=== PATIENT | female | born 1940 | race Caucasian/White ===

== ENCOUNTER 2018-06-16 23:02 | Inpatient (IN) | payer MEDICARE, OTHER ==
--- NOTE | 2018-06-16 23:52 | ED ---
Altered Mental Status HPI - General Chief Complaint: Altered Mental Status Stated Complaint: Altered Mental Status Time Seen by Provider: 06/16/18 23:35 Source: EMS, Caregiver Mode of arrival: EMS Limitations: altered mental status - History of Present Illness Initial Comments: This patient is a 78-year-old woman who lives in a senior apartment, presenting to be evaluated for worsening of altered mental status. History is from a caregiver, who states that she has been becoming progressively weaker and more confused for over 3 days now. She had been taking less in the way of oral intake as well. Today she stopped taking fluids at all, she has not been talking at all, and they called EMS to have her seen here. Patient had been seen by a visiting physician on Monday. She had been taking Bactrim for urinary tract infection. MD Complaint: altered mental status, decreased responsiveness -: days(s) Severity: severe Consistency of Symptoms: getting worse - Related Data Home Medications Medication Instructions Recorded Confirmed Albuterol Nebulized [Ventolin 1 applic INHALATION RT-QID 09/09/14 06/16/18 Nebulized] Aspirin 81 mg PO DAILY@89909/09/14 06/16/18 Benztropine Mesylate [Cogentin] 0.5 mg PO BID@09,199909/09/14 06/16/18 Divalproex [Depakote] 250 mg PO DAILY@89909/09/14 06/16/18 Divalproex [Depakote] 500 mg PO DAILY@89909/09/14 06/16/18 Meloxicam [Mobic] 7.5 mg PO DAILY@89909/09/14 06/16/18 risperiDONE [RisperDAL] 1 mg PO BID@09,199909/09/14 06/16/18 Atorvastatin [Lipitor] 5 mg PO DAILY@159906/16/18 06/16/18 Budesonide [Pulmicort] 0.25 mg INHALATION RT-BID 06/16/18 06/16/18 Cranberry Fruit Extract [Cranberry] 200 mg PO DAILY@159906/16/18 06/16/18 Ferrous Sulfate [Iron] 325 mg PO BID@0900,199906/16/18 06/16/18 Furosemide [Lasix] 20 mg PO DAILY@89906/16/18 06/16/18 Levothyroxine Sodium [Synthroid] 125 mcg PO DAILY@0800 06/16/18 06/16/18 Omeprazole 20 mg PO DAILY@0906/16/18 06/16/18 Sodium Chloride Tab 1 gm PO BID@09,199906/16/18 06/16/18 Sulfamethoxazole/Trimethoprim 1 tab PO BID@0900,199906/16/18 06/16/18 [Bactrim DS 800-160 mg] guaiFENesin [Mucinex] 600 mg PO BID@09,199906/16/18 06/16/18 Allergies Allergy/AdvReac Type Severity Reaction Status Date / Time No Known Allergies Allergy Verified 06/16/18 23:33 Review of Systems ROS Statement: Those systems with pertinent positive or pertinent negative responses have been documented in the HPI. ROS Other: All systems not noted in ROS Statement are negative. Limitations: ROS unobtainable due to patients medical condition (Patient currently nonverbal) Past Medical History Past Medical History: Heart Failure, Hyperlipidemia, Hypertension, Mitral Valve Prolapse (MVP), Seizure Disorder, Thyroid Disorder Additional Past Medical History / Comment(s): PARKINSON'S, MENTAL RETARDATION, UNKNOWN WHEN LAST SEIZURE, USES A WHEELCHAIR, RT ARM IN BANDAGE WITH SLING. CAREGIVER STATES ABLE TO READ AND WRITE, DIFFICULTY WITH COMPREHENSION. History of Any Multi-Drug Resistant Organisms: None Reported Past Surgical History: Joint Replacement Additional Past Surgical History / Comment(s): RIGHT HIP, ORIF OF RIGHT ELBOW (). Past Anesthesia/Blood Transfusion Reactions: No Reported Reaction Past Psychological History: Depression, Schizophrenia Smoking Status: Former smoker Past Alcohol Use History: None Reported Past Drug Use History: None Reported General Exam Limitations: altered mental status General appearance: obtunded Head exam: Present: atraumatic, normocephalic Eye exam: Present: PERRL. Absent: scleral icterus, conjunctival injection ENT exam: Present: mucous membranes dry Neck exam: Present: normal inspection Respiratory exam: Present: rales, rhonchi. Absent: wheezes, stridor Cardiovascular Exam: Present: regular rate, normal rhythm, systolic murmur ( Grade 2/6 systolic ejection murmur). Absent: diastolic murmur, rubs, gallop GI/Abdominal exam: Present: soft. Absent: distended, tenderness, guarding, rebound, mass Extremities exam: Present: normal inspection, normal capillary refill. Absent: pedal edema, calf tenderness Neurological exam: Present: altered Skin exam: Present: intact, pallor, mottled. Absent: rash Course Vital Signs 06/16/18 06/17/18 06/17/18 23:04 00:03 00:27 Temperature Pulse Rate 80 74 64 Respiratory 18 16 16 Rate Blood Pressure 111/70 107/62 54/24 O2 Sat by Pulse 92 L 93 L 92 L Oximetry 06/17/18 06/17/18 06/17/18 00:33 00:40 00:47 Temperature Pulse Rate 71 76 71 Respiratory 16 16 16 Rate Blood Pressure 44/33 91/31 85/43 O2 Sat by Pulse 76 L 93 L 93 L Oximetry 06/17/18 06/17/18 06/17/18 01:05 01:23 02:00 Temperature Pulse Rate 77 74 83 Respiratory 16 15 18 Rate Blood Pressure 119/71 94/58 109/54 O2 Sat by Pulse 100 100 100 Oximetry 06/17/18 06/17/18 06/17/18 02:43 03:46 03:50 Temperature 92.1 F L Pulse Rate 83 73 Respiratory 19 19 Rate Blood Pressure 90/75 66/35 O2 Sat by Pulse 94 L 95 Oximetry 06/17/18 06/17/18 06/17/18 03:55 04:00 04:06 Temperature Pulse Rate 73 Respiratory 19 Rate Blood Pressure 75/36 77/42 92/49 O2 Sat by Pulse 98 Oximetry 06/17/18 06/17/18 06/17/18 04:14 04:43 05:15 Temperature 93.0 F L 93.3 F L 94.3 F L Pulse Rate 71 70 75 Respiratory 19 20 22 Rate Blood Pressure 82/42 76/41 82/42 O2 Sat by Pulse 99 97 97 Oximetry 06/17/18 06/17/18 06/17/18 05:25 05:40 06:05 Temperature 94.7 F L 95.5 F L 96.3 F L Pulse Rate 79 84 Respiratory 22 20 Rate Blood Pressure 91/50 90/54 104/50 O2 Sat by Pulse 98 96 Oximetry Procedures - Central Line Placement Right Femoral Consent Obtained: emergent situation Time Out Performed: Yes Patient Placed on Monitor/Pulse Ox: Yes Prep: mask, gown, gloves Central Line Prep: Chlorhexidine scrub Local Anesthesia Used: Lidocaine 1% Central Line Lumen Inserted: triple Central Line Position: good blood return, all ports aspirated, flushed, capped, sutured in place with nylon Dressing Applied: Tegaderm Patient Tolerated Procedure: well, no complications Complications: none - Sepsis Sepsis Focused Exam #1 Sepsis Focused Exam Complete: Yes Vital Signs & RN Notes Reviewed: Yes Capillary Refill: < 2 Seconds: Fingers Peripheral Pulses: Weak: Radial (R) Skin Color: Flushed Respiratory Exam: rales, rhonchi Cardiovascular Exam: regular rate Medical Decision Making - Medical Decision Making Patient 78-year-old woman brought to be evaluated for altered mental status. Caregiver reports that she had been having some occasional cough and gurgling breath sounds and symptoms of worsening since Monday. Initial evaluation, patient clinically looking like septic with pneumonia as the source. She became hypotensive and given fluid bolus, receiving over 2500 and also fluid in the emergency department. Patient also received central line to right femoral, to start pressor support. Patient's mental status has improved following fluid bolus and starting antibiotics. Case discussed with hospitalist group for admission. 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 - Lab Data Result diagrams: 06/16/18 23:50 06/16/18 23:50 Lab Results 06/16/18 06/16/18 06/16/18 Range/Units 23:50 23:50 23:50 WBC 3.7 L (3.8-10.6) k/uL RBC 3.18 L (3.80-5.40) m/uL Hgb 8.7 L (11.4-16.0) gm/dL Hct 27.0 L (34.0-46.0) % MCV 84.9 (80.0-100.0) fL MCH 27.3 (25.0-35.0) pg MCHC 32.1 (31.0-37.0) g/dL RDW 22.1 H (11.5-15.5) % Plt Count 90 L (150-450) k/uL Neutrophils % (Manual) 29 % Band Neutrophils % 52 % Lymphocytes % (Manual) 11 % Monocytes % (Manual) 4 % Metamyelocytes % 4 % Myelocytes % 1 % Neutrophils # (Manual) 2.90 (1.3-7.7) k/uL Lymphocytes # (Manual) 0.41 L (1.0-4.8) k/uL Monocytes # (Manual) 0.15 (0-1.0) k/uL Metamyelocytes # (Man) 0.15 H (0) k/uL Myelocytes # (Manual) 0.04 H (0) k/uL Nucleated RBCs 4 H (0-0) /100 WBC Toxic Granulation Present Large Platelets Present Polychromasia Present Poikilocytosis (manual Present Anisocytosis Moderate Anisocytosis (manual) Present Microcytosis Slight Target Cells Present PT (9.0-12.0) sec INR (<1.2) APTT (22.0-30.0) sec Sodium (137-145) mmol/L Potassium (3.5-5.1) mmol/L Chloride (98-107) mmol/L Carbon Dioxide (22-30) mmol/L Anion Gap mmol/L BUN (7-17) mg/dL Creatinine (0.52-1.04) mg/dL Est GFR (CKD-EPI)AfAm (>60 ml/min/1.73 sqM) Est GFR (CKD-EPI)NonAf (>60 ml/min/1.73 sqM) Glucose (74-99) mg/dL POC Glucose (mg/dL) (75-99) mg/dL POC Glu Cushion Mat Maker ID Lactic Ac Sepsis Rflx Plasma Lactic Acid Jason 2.4 H* (0.7-2.0) mmol/L Calcium (8.4-10.2) mg/dL Total Bilirubin (0.2-1.3) mg/dL AST (14-36) U/L ALT (9-52) U/L Alkaline Phosphatase (38-126) U/L Ammonia <9 (<30) umol/L Total Creatine Kinase 44 (30-135) U/L CK-MB (CK-2) 6.2 H (0.0-2.4) ng/mL CK-MB (CK-2) Rel Index 14.1 Troponin I 0.032 (0.000-0.034) ng/mL Total Protein (6.3-8.2) g/dL Albumin (3.5-5.0) g/dL Urine Color Urine Appearance (Clear) Urine pH (5.0-8.0) Ur Specific [place] (1.001-1.035) Urine Protein (Negative) Urine Glucose (UA) (Negative) Urine Ketones (Negative) Urine Blood (Negative) Urine Nitrite (Negative) Urine Bilirubin (Negative) Urine Urobilinogen (<2.0) mg/dL Ur Leukocyte Esterase (Negative) Urine RBC (0-5) /hpf Urine WBC (0-5) /hpf Ur Squamous Epith Cells (0-4) /hpf Amorphous Sediment (None) /hpf Urine Bacteria (None) /hpf Hyaline Casts (0-2) /lpf Urine Mucus (None) /hpf 06/16/18 06/16/18 06/17/18 Range/Units 23:50 23:50 00:08 WBC (3.8-10.6) k/uL RBC (3.80-5.40) m/uL Hgb (11.4-16.0) gm/dL Hct (34.0-46.0) % MCV (80.0-100.0) fL MCH (25.0-35.0) pg MCHC (31.0-37.0) g/dL RDW (11.5-15.5) % Plt Count (150-450) k/uL Neutrophils % (Manual) % Band Neutrophils % % Lymphocytes % (Manual) % Monocytes % (Manual) % Metamyelocytes % % Myelocytes % % Neutrophils # (Manual) (1.3-7.7) k/uL Lymphocytes # (Manual) (1.0-4.8) k/uL Monocytes # (Manual) (0-1.0) k/uL Metamyelocytes # (Man) (0) k/uL Myelocytes # (Manual) (0) k/uL Nucleated RBCs (0-0) /100 WBC Toxic Granulation Large Platelets Polychromasia Poikilocytosis (manual Anisocytosis Anisocytosis (manual) Microcytosis Target Cells PT 10.1 (9.0-12.0) sec INR 0.9 (<1.2) APTT 29.2 (22.0-30.0) sec Sodium 129 L (137-145) mmol/L Potassium 4.8 (3.5-5.1) mmol/L Chloride 94 L (98-107) mmol/L Carbon Dioxide 22 (22-30) mmol/L Anion Gap 13 mmol/L BUN 31 H (7-17) mg/dL Creatinine 1.30 H (0.52-1.04) mg/dL Est GFR (CKD-EPI)AfAm 46 (>60 ml/min/1.73 sqM) Est GFR (CKD-EPI)NonAf 40 (>60 ml/min/1.73 sqM) Glucose 81 (74-99) mg/dL POC Glucose (mg/dL) 79 (75-99) mg/dL POC Glu Cushion Mat Maker ID Pati Chatman Lactic Ac Sepsis Rflx Plasma Lactic Acid Jason (0.7-2.0) mmol/L Calcium 9.1 (8.4-10.2) mg/dL Total Bilirubin 0.3 (0.2-1.3) mg/dL AST 32 (14-36) U/L ALT 34 (9-52) U/L Alkaline Phosphatase 91 (38-126) U/L Ammonia (<30) umol/L Total Creatine Kinase (30-135) U/L CK-MB (CK-2) (0.0-2.4) ng/mL CK-MB (CK-2) Rel Index Troponin I (0.000-0.034) ng/mL Total Protein 5.6 L (6.3-8.2) g/dL Albumin 2.9 L (3.5-5.0) g/dL Urine Color Urine Appearance (Clear) Urine pH (5.0-8.0) Ur Specific [place] (1.001-1.035) Urine Protein (Negative) Urine Glucose (UA) (Negative) Urine Ketones (Negative) Urine Blood (Negative) Urine Nitrite (Negative) Urine Bilirubin (Negative) Urine Urobilinogen (<2.0) mg/dL Ur Leukocyte Esterase (Negative) Urine RBC (0-5) /hpf Urine WBC (0-5) /hpf Ur Squamous Epith Cells (0-4) /hpf Amorphous Sediment (None) /hpf Urine Bacteria (None) /hpf Hyaline Casts (0-2) /lpf Urine Mucus (None) /hpf 06/17/18 06/17/18 06/17/18 Range/Units 00:24 01:14 03:45 WBC (3.8-10.6) k/uL RBC (3.80-5.40) m/uL Hgb (11.4-16.0) gm/dL Hct (34.0-46.0) % MCV (80.0-100.0) fL MCH (25.0-35.0) pg MCHC (31.0-37.0) g/dL RDW (11.5-15.5) % Plt Count (150-450) k/uL Neutrophils % (Manual) % Band Neutrophils % % Lymphocytes % (Manual) % Monocytes % (Manual) % Metamyelocytes % % Myelocytes % % Neutrophils # (Manual) (1.3-7.7) k/uL Lymphocytes # (Manual) (1.0-4.8) k/uL Monocytes # (Manual) (0-1.0) k/uL Metamyelocytes # (Man) (0) k/uL Myelocytes # (Manual) (0) k/uL Nucleated RBCs (0-0) /100 WBC Toxic Granulation Large Platelets Polychromasia Poikilocytosis (manual Anisocytosis Anisocytosis (manual) Microcytosis Target Cells PT (9.0-12.0) sec INR (<1.2) APTT (22.0-30.0) sec Sodium (137-145) mmol/L Potassium (3.5-5.1) mmol/L Chloride (98-107) mmol/L Carbon Dioxide (22-30) mmol/L Anion Gap mmol/L BUN (7-17) mg/dL Creatinine (0.52-1.04) mg/dL Est GFR (CKD-EPI)AfAm (>60 ml/min/1.73 sqM) Est GFR (CKD-EPI)NonAf (>60 ml/min/1.73 sqM) Glucose (74-99) mg/dL POC Glucose (mg/dL) (75-99) mg/dL POC Glu Cushion Mat Maker ID Lactic Ac Sepsis Rflx Y Plasma Lactic Acid Jason 1.4 (0.7-2.0) mmol/L Calcium (8.4-10.2) mg/dL Total Bilirubin (0.2-1.3) mg/dL AST (14-36) U/L ALT (9-52) U/L Alkaline Phosphatase (38-126) U/L Ammonia (<30) umol/L Total Creatine Kinase (30-135) U/L CK-MB (CK-2) (0.0-2.4) ng/mL CK-MB (CK-2) Rel Index Troponin I (0.000-0.034) ng/mL Total Protein (6.3-8.2) g/dL Albumin (3.5-5.0) g/dL Urine Color Yellow Urine Appearance Cloudy H (Clear) Urine pH 6.5 (5.0-8.0) Ur Specific [place] 1.011 (1.001-1.035) Urine Protein Negative (Negative) Urine Glucose (UA) Negative (Negative) Urine Ketones Negative (Negative) Urine Blood Negative (Negative) Urine Nitrite Negative (Negative) Urine Bilirubin Negative (Negative) Urine Urobilinogen <2.0 (<2.0) mg/dL Ur Leukocyte Esterase Large H (Negative) Urine RBC 1 (0-5) /hpf Urine WBC 4 (0-5) /hpf Ur Squamous Epith Cells <1 (0-4) /hpf Amorphous Sediment Rare H (None) /hpf Urine Bacteria Rare H (None) /hpf Hyaline Casts 8 H (0-2) /lpf Urine Mucus Rare H (None) /hpf - EKG Data -: EKG Interpreted by Me EKG shows normal: sinus rhythm, axis (Normal), intervals (Normal), QRS complexes (Normal), ST-T waves (Lateral T inversions) Rate: normal (Rate 69 bpm) Critical Care Time Critical Care Time: Yes (50 minutes) Disposition Clinical Impression: Pneumonia, Severe sepsis Disposition: ADMITTED IP TO THIS [facility] Condition: Critical
[2018-06-17] MEDS ORDERED: SODIUM CHLORIDE 0.9% 500 ML 500 ML IV STA (00:11)
[2018-06-17 00:13] LABS: Albumin 2.9 g/dL (3.5-5.0); Calcium 9.1 mg/dL (8.4-10.2); Potassium 4.8 mmol/L (3.5-5.1); Total Bilirubin 0.3 mg/dL (0.2-1.3); Total Protein 5.6 g/dL (6.3-8.2)
[2018-06-17 00:14] LABS: Anisocytosis Moderate; HGB 8.7 gm/dL (11.4-16.0); MCH 27.3 pg (25.0-35.0); MCHC 32.1 g/dL (31.0-37.0); MCV 84.9 fL (80.0-100.0); Mean Platelet Volume 8.8; Microcytosis Slight; RBC 3.18 m/uL (3.80-5.40); RDW 22.1 % (11.5-15.5)
[2018-06-17 00:17] LABS: INR 0.9 (<1.2)
[2018-06-17 00:18] LABS: Partial Thromboplastin Time 29.2 sec (22.0-30.0); Prothrombin Time 10.1 sec (9.0-12.0)
[2018-06-17 00:20] LABS: Ammonia <9 umol/L (<30)
[2018-06-17 00:21] LABS: Glucose,Whole Blood 79 mg/dL (75-99)
[2018-06-17 00:24] LABS: Lactic Acid, Venous 2.4 mmol/L (0.7-2.0)
[2018-06-17 00:41] LABS: Creatine Kinase MB 6.2 ng/mL (0.0-2.4); Troponin I 0.032 ng/mL (0.000-0.034)
[2018-06-17 01:04] LABS: Platelet Count 90 k/uL (150-450)
[2018-06-17 01:20] LABS: Band Neutrophils % 52 %; Lymphocytes # (M) 0.41 k/uL (1.0-4.8); Metamyelocytes # (M) 0.15 k/uL (0); Metamyelocytes % 4 %; Monocytes # (M) 0.15 k/uL (0-1.0); Myelocytes # (M) 0.04 k/uL (0); Myelocytes % 1 %; Neutrophils % (M) 29 %; Nucleated Red Blood Cells 4 /100 WBC (0-0); Total Cells Counted 200; WBC 3.7 k/uL (3.8-10.6)
[2018-06-17 01:24] LABS: Large Platelets Present; Target Cells Present
[2018-06-17 01:25] LABS: Toxic Granulation Present
[2018-06-17 01:28] LABS: Poikilocytosis (M) Present
[2018-06-17 01:29] LABS: Anisocytosis (M) Present; Polychromasia Present
[2018-06-17 01:33] LABS: Amorphous Sediment,Urine Rare /hpf; Appearance,Urine Cloudy (Clear); Bacteria,Urine Rare /hpf; Bilirubin,Urine Negative (Negative); Blood,Urine Negative (Negative); Color,Urine Yellow; Glucose,Urine (UA) Negative (Negative); Hyaline Casts,Urine 8 /lpf (0-2); Ketones,Urine Negative (Negative); Leukocyte Esterase,Urine Large (Negative); Mucus,Urine Rare /hpf; Nitrite,Urine Negative (Negative); PH, Urine 6.5 (5.0-8.0); Protein,Urine Negative (Negative); RBC,Urine 1 /hpf (0-5); Specific Gravity,Urine 1.011 (1.001-1.035); Squamous Epithelial Cell,Urine <1 /hpf (0-4); Urobilinogen,Urine <2.0 mg/dL (<2.0); WBC,Urine 4 /hpf (0-5)
--- NOTE | 2018-06-17 02:04 | XR ---
EXAMINATION TYPE: XR chest 1V portable DATE OF EXAM: 06/17/2018 COMPARISON: 05/11/2012 HISTORY: Altered mental status TECHNIQUE: Single frontal view of the chest is obtained. FINDINGS: There is pulmonary edema. There are chest leads. There is slight blunting of the costophre jarad angles. IMPRESSION: Small pleural effusions with pulmonary edema probably relates to congestive heart failur e or RDS. This is a significant change compared to last exam.
[2018-06-17] MEDS ORDERED: PIPERACILLIN-TAZOBACTAM 3.375 GM in SODIUM CHLORIDE 0.9% 100 ML IVPB STA (02:13)
[2018-06-17] MEDS ORDERED: LEVOFLOXACIN 750MG-D5W PMX 750 MG in DEXTROSE/WATER 1 150ML.BAG IVPB STA (02:14)
[2018-06-17] MEDS ORDERED: SODIUM CHLORIDE 0.9% 2,000 ML IV ONE (02:46)
--- NOTE | 2018-06-17 02:53 | CT ---
EXAMINATION TYPE: CT brain wo con DATE OF EXAM: 06/17/2018 COMPARISON: 05/23/2011 HISTORY: prev. on synapse. 2 scans were done due to motion; both scans were put through for different points of motion CT DLP: 2002.6 mGycm Automated exposure control for dose reduction was used. FINDINGS: There is cerebral cortical atrophy. There is enlargement of the ventricles. There is no mass effect n or midline shift. There is no sign of intracranial hemorrhage. There is bilateral thalamic calcificat ion. Calvarium is intact. IMPRESSION: MILD ATROPHY. HYDROCEPHALUS. NO CHANGE COMPARED TO OLD EXAM.
[2018-06-17] MEDS: NOREPINEPHRINE 16 MG in SODIUM CHLORIDE 0.9% 250 ML IV SCH (04:03)
[2018-06-17] MEDS ORDERED: PNEUMONIA PROTOCOL UTILIZED 1 EACH MISC PO PRN (04:47)
[2018-06-17] MEDS ORDERED: HYDROCORTISONE SUCCINATE 100 MG/2 ML VIAL IV STA (05:21)
[2018-06-17 05:37] LABS: ABG Base Excess -2.1 mmol/L; ABG HCO3 23 mmol/L (21-25); ABG Oxygen Saturation 98.8 % (94-97); ABG PCO2 40 mmHg (35-45); ABG PH 7.37 (7.35-7.45); ABG PO2 115 mmHg (83-108); ABG TCO2 24 mmol/L (19-24)
[2018-06-17 06:01] LABS: Glucose,Whole Blood 82 mg/dL (75-99)
[2018-06-17 06:19] LABS: Glucose,Whole Blood 52 mg/dL (75-99)
[2018-06-17 06:38] LABS: Glucose,Whole Blood 176 mg/dL (75-99)
--- NOTE | 2018-06-17 07:14 | XR ---
EXAMINATION TYPE: XR chest 1V DATE OF EXAM: 06/17/2018 HISTORY: Pleural effusions/ICU management. REFERENCE: Previous study dated 06/17/2018. FINDINGS: The heart is enlarged. There is vascular congestion and pulmonary edema. There are small, b ilateral effusions. IMPRESSION: CONTINUING CHANGES OF CONGESTIVE HEART FAILURE.
[2018-06-17] MEDS: PIPERACILLIN-TAZOBACTAM 3.375 GM in SODIUM CHLORIDE 0.9% 100 ML IVPB SCH ×3 (07:15→22:01)
[2018-06-17] MEDS: BUDESONIDE 0.25 MG/2 ML NEBU INHALATION SCH ×2 (07:59→20:20)
[2018-06-17] MEDS ORDERED: ALBUTEROL NEBULIZED 2.5 MG/3 ML INHALATION SCH (08:00)
[2018-06-17] MEDS ORDERED: VANCOMYCIN IV PER PHARMACY 1 EACH MISC MISCELLANE PRN (09:00)
[2018-06-17] MEDS ORDERED: SODIUM CHLORIDE 0.9% 1,000 ML IV ONE (09:01)
[2018-06-17] MEDS: SODIUM CHLORIDE 0.9% 1,000 ML IV SCH ×2 (09:20→20:47)
--- NOTE | 2018-06-17 09:23 | P.CNPUL ---
History of Present Illness Consult date: 06/17/18 Requesting physician: Anibal Brown Reason for consult: dyspnea, hypoxemia, pneumonia, abnormal CXR/CT, other Chief complaint: Bilateral pneumonia, severe sepsis, septic shock History of present illness: This is 78-year-old white female patient with past medical history of developmental delay, Parkinson's disease, hypothyroidism, seizure disorder, congestive heart failure with an unknown ejection fraction, mitral valve prolapse history, hypertension, schizoaffective disorder, hyperlipidemia, osteoarthritis, depression, and former nicotine dependence. Patient resides at home, with 24-hour care, patient is wheelchair bound, and requires extensive assistance with all ADLs including feeding. Patient has a public guardian. Patient was recently diagnosed with the urinary tract infection, and was on the third day of her Bactrim. Patient is under the care of visiting physicians, follows with Carlos the nurse practitioner. In the last couple of days she was noted to be more lethargic, she did have an episode of vomiting, and decreased oral intake. Yesterday she stopped taking in anything at all. She is progressively weaker and confused. Normally her mentation allows her to communicate verbally. She has caregiver at the bedside as was providing much of the history. A month ago patient was also hospitalized at [facility] for pneumonia, congestive heart failure. Patient was hypothermic on presentation, with a temp of 92.1 rectally, she was hypotensive, with a blood pressure as low as 44/33. Brain CT showed mild atrophy, hydrocephalus but no acute changes. Chest x-ray shows cardiac megaly, vascular congestion and pulmonary edema, and small bilateral pleural effusions. Patient was fluid resuscitated between half liters of warmed fluids 0.9 normal saline in the emergency department, she was persistently hypotensive, although blood pressure had improved, and she was started on levophed currently infusing at 25 mics per minute. Patient is seen in the intensive care unit this morning , hypothermic has resolved, temp is 97.6, blood cultures urine cultures were sent, and are pending at this time, patient did receive a dose of Rocephin in the emergency department, then her antibiotics over to Levaquin and Zosyn. She is quite lethargic, she is a 55% Ventimask, blood gases were done on 55% FiO2, and showed pO2 of 1:15, pCO2 40, and pH of 7.37. She'll labs showed WBC of 3.7 , hemoglobin of 8.7, white count of 90, bands of 52%, INR of 0.9, sodium is 129 , potassium is 4.8, chloride is 94, CO2 of 22, BUN of 31 and creatinine is 1.3. Lactic acid was 2.4 on admission, its improved after fluid resuscitation is down to 1.4 this morning, troponin 0.032. Total CK is 44, CK-MB is 6.2, urinalysis showed cloudy urine with large amounts of leukocyte esterase, WBC of 4. Review of Systems All systems: negative Constitutional: Reports anorexia, Reports lethargy, Reports malaise, Reports weakness, Denies chills, Denies fever Eyes: denies blurred vision, denies pain Ears, nose, mouth and throat: Denies headache, Denies sore throat Cardiovascular: Denies chest pain, Denies shortness of breath Respiratory: Reports respiratory infections, Denies cough Gastrointestinal: Reports vomiting, Denies abdominal pain, Denies diarrhea, Denies nausea Genitourinary: Denies dysuria, Denies hematuria Musculoskeletal: Denies myalgias Integumentary: Denies pruritus, Denies rash Neurological: Denies numbness, Denies weakness Psychiatric: Denies anxiety, Denies depression Endocrine: Denies fatigue, Denies weight change Past Medical History Past Medical History: Heart Failure, Hyperlipidemia, Hypertension, Mitral Valve Prolapse (MVP), Seizure Disorder, Thyroid Disorder Additional Past Medical History / Comment(s): PARKINSON'S, MENTAL RETARDATION, UNKNOWN WHEN LAST SEIZURE, USES A WHEELCHAIR, RT ARM IN BANDAGE WITH SLING. CAREGIVER STATES ABLE TO READ AND WRITE, DIFFICULTY WITH COMPREHENSION. History of Any Multi-Drug Resistant Organisms: None Reported Past Surgical History: Joint Replacement Additional Past Surgical History / Comment(s): RIGHT HIP, ORIF OF RIGHT ELBOW (). Past Anesthesia/Blood Transfusion Reactions: No Reported Reaction Past Psychological History: Depression, Schizophrenia Smoking Status: Former smoker Past Alcohol Use History: None Reported Past Drug Use History: None Reported Medications and Allergies Home Medications Medication Instructions Recorded Confirmed Type Albuterol Nebulized [Ventolin 1 applic INHALATION RT-QID 09/09/14 06/16/18 History Nebulized] Aspirin 81 mg PO DAILY@0900 09/09/14 06/16/18 History Benztropine Mesylate [Cogentin] 0.5 mg PO BID@0900,199909/09/14 06/16/18 History Divalproex [Depakote] 250 mg PO DAILY@0900 09/09/14 06/16/18 History Divalproex [Depakote] 500 mg PO DAILY@0900 09/09/14 06/16/18 History Meloxicam [Mobic] 7.5 mg PO DAILY@0900 09/09/14 06/16/18 History risperiDONE [RisperDAL] 1 mg PO BID@0900,199909/09/14 06/16/18 History Atorvastatin [Lipitor] 5 mg PO DAILY@1600 06/16/18 06/16/18 History Budesonide [Pulmicort] 0.25 mg INHALATION RT-BID 06/16/18 06/16/18 History Cranberry Fruit Extract [Cranberry] 200 mg PO DAILY@1600 06/16/18 06/16/18 History Ferrous Sulfate [Iron] 325 mg PO BID@0900,199906/16/18 06/16/18 History Furosemide [Lasix] 20 mg PO DAILY@0900 06/16/18 06/16/18 History Levothyroxine Sodium [Synthroid] 125 mcg PO DAILY@0800 06/16/18 06/16/18 History Omeprazole 20 mg PO DAILY@0906/16/18 06/16/18 History Sodium Chloride Tab 1 gm PO BID@0900,199906/16/18 06/16/18 History Sulfamethoxazole/Trimethoprim 1 tab PO BID@0900,199906/16/18 06/16/18 History [Bactrim DS 800-160 mg] guaiFENesin [Mucinex] 600 mg PO BID@0900,199906/16/18 06/16/18 History Allergies Allergy/AdvReac Type Severity Reaction Status Date / Time No Known Allergies Allergy Verified 06/16/18 23:33 Physical Exam Vitals: Vital Signs Temp Pulse Resp BP Pulse Ox 06/17/18 08:14 87 06/17/18 07:59 89 06/17/18 06:05 96.3 F L 104/50 06/17/18 05:40 95.5 F L 84 20 90/54 96 06/17/18 05:25 94.7 F L 79 22 91/50 98 06/17/18 05:15 94.3 F L 75 22 82/42 97 06/17/18 04:43 93.3 F L 70 20 76/41 97 06/17/18 04:14 93.0 F L 71 19 82/42 99 06/17/18 04:06 73 19 92/49 98 06/17/18 04:00 77/42 06/17/18 03:55 75/36 06/17/18 03:50 73 19 66/35 95 06/17/18 03:46 92.1 F L 06/17/18 02:43 83 19 90/75 94 L 06/17/18 02:00 83 18 109/54 100 06/17/18 01:23 74 15 94/58 100 06/17/18 01:05 77 16 119/71 100 06/17/18 00:47 71 16 85/43 93 L 06/17/18 00:40 76 16 91/31 93 L 06/17/18 00:33 71 16 44/33 76 L 06/17/18 00:27 64 16 54/24 92 L 06/17/18 00:03 74 16 107/62 93 L 06/16/18 23:04 80 18 111/70 92 L Intake and Output 06/16/18 06/17/18 06/17/18 22:59 06:59 14:59 Intake Total 13.042 40 Output Total 400 60 Balance -386.958 -20 Intake: IV 40 0.9 NACL 40 Intake, IV Titration 13.042 Amount Norepinephrine 16 mg In 13.042 Sodium Chloride 0.9% 250 ml @ Titrate IV .Q0M [facility] Rx#:[id number] Output: Urine 400 60 Other: Weight 53 kg GENERAL EXAM: Lethargic, 78-year-old white female patient on 55% Ventimask comfortable in no apparent distress. HEAD: Normocephalic/atraumatic. EYES: Normal reaction of pupils, equal size. Conjunctiva pink, sclera white. NOSE: Clear with pink turbinates. THROAT: No erythema or exudates. NECK: No masses, no JVD, no thyroid enlargement, no adenopathy. CHEST: No chest wall deformity. Symmetrical expansion. LUNGS: Diffuse rhonchi throughout the lung huynh CVS: Regular rate and rhythm, normal S1 and S2, no gallops, harsh systolic murmur across the precordium ABDOMEN: Soft, nontender. No hepatosplenomegaly, normal bowel sounds, no guarding or rigidity. EXTREMITIES: No clubbing, no edema, no cyanosis, 2+ pulses and upper and lower extremities. MUSCULOSKELETAL: Muscle strength and tone normal. SPINE: No scoliosis or deformity SKIN: No rashes CENTRAL NERVOUS SYSTEM: Lethargic. No focal deficits, tone is normal in all 4 extremities. PSYCHIATRIC: Unable to assess Results - Laboratory Findings CBC and BMP: 06/16/18 23:50 06/16/18 23:50 ABG ABG pH 7.37 (7.35-7.45) 06/17/18 05:34 ABG pCO2 40 mmHg (35-45) 06/17/18 05:34 ABG pO2 115 mmHg (83-108) H 06/17/18 05:34 ABG O2 Saturation 98.8 % (94-97) H 06/17/18 05:34 PT/INR, D-dimer PT 10.1 sec (9.0-12.0) 06/16/18 23:50 INR 0.9 (<1.2) 06/16/18 23:50 Abnormal lab findings: Abnormal Labs 06/16/18 06/16/18 06/16/18 23:50 23:50 23:50 WBC 3.7 L RBC 3.18 L Hgb 8.7 L Hct 27.0 L RDW 22.1 H Plt Count 90 L Lymphocytes # (Manual) 0.41 L Metamyelocytes # (Man) 0.15 H Myelocytes # (Manual) 0.04 H Nucleated RBCs 4 H ABG pO2 ABG O2 Saturation Sodium Chloride BUN Creatinine POC Glucose (mg/dL) Plasma Lactic Acid Jason 2.4 H* CK-MB (CK-2) 6.2 H Total Protein Albumin Urine Appearance Ur Leukocyte Esterase Amorphous Sediment Urine Bacteria Hyaline Casts Urine Mucus 06/16/18 06/17/18 06/17/18 23:50 01:14 05:34 WBC RBC Hgb Hct RDW Plt Count Lymphocytes # (Manual) Metamyelocytes # (Man) Myelocytes # (Manual) Nucleated RBCs ABG pO2 115 H ABG O2 Saturation 98.8 H Sodium 129 L Chloride 94 L BUN 31 H Creatinine 1.30 H POC Glucose (mg/dL) Plasma Lactic Acid Jason CK-MB (CK-2) Total Protein 5.6 L Albumin 2.9 L Urine Appearance Cloudy H Ur Leukocyte Esterase Large H Amorphous Sediment Rare H Urine Bacteria Rare H Hyaline Casts 8 H Urine Mucus Rare H 06/17/18 06/17/18 06:08 06:26 WBC RBC Hgb Hct RDW Plt Count Lymphocytes # (Manual) Metamyelocytes # (Man) Myelocytes # (Manual) Nucleated RBCs ABG pO2 ABG O2 Saturation Sodium Chloride BUN Creatinine POC Glucose (mg/dL) 52 L 176 H Plasma Lactic Acid Jason CK-MB (CK-2) Total Protein Albumin Urine Appearance Ur Leukocyte Esterase Amorphous Sediment Urine Bacteria Hyaline Casts Urine Mucus - Diagnostic Findings Chest x-ray: report reviewed, image reviewed Additional studies: Blood gas, EKG, chest x-rays have all been reviewed with Dr. Childers Assessment and Plan Plan: Assessment: #1. Severe sepsis, septic shock and the source could probably be related to urinary tract infection, or underlying pneumonia #2. Lactic acidosis improving with IV fluids. #3. Hypothermia, hypotension, altered mentation related to the above #4. Recent urinary tract infection, patient was on Bactrim #5. Acute hypoxemic respiratory failure related to acute pneumonia, possibly related to aspiration and acute exacerbation of congestive heart failure, with an unknown ejection fraction #6. Acute kidney injury #7. Neutropenia, thrombocytopenia related to sepsis #8. Anemia #9. Seizure disorder Depakote #10. She of developmental delay, Parkinson's disorder, schizoaffective disorder #11. Recent hospitalization one month ago for acute congestive heart failure and pneumonia at the [facility] #12. History of mitral valve prolapse, and possibly aortic stenosis #13. Gait dysfunction, patient requires 24-hour care with all ADLs including feeding #14. Hypertension, hyperlipidemia Plan: We'll give the patient additional liter of IV fluid bolus of 0.9 normal saline. Obtain random serum cortisol, wean the vasopressors. We will insert a arterial line for hemodynamic monitoring. Chest x-ray has been reviewed with Dr. Childers, shows changes consistent with congestive heart failure, cannot exclude bilateral pneumonia. Would discontinue the Levaquin as it may lower seizure threshold, and and vancomycin. Obtain a 2-D echocardiogram and proBNP. Continue with Zosyn. GI and DVT prophylaxis. Blood cultures, urine culture have been obtained and are pending at this time. Critical care time is over 30 minutes I performed a history & physical examination of the patient and discussed their management with my nurse practitioner, Elsy De Guzman. I reviewed the nurse practitioner's note and agree with the documented findings and plan of care. Lung sounds are positive for diffuse rhonchi. The findings and the impression was discussed with the patient. I attest to the documentation by the nurse practitioner. Time with Patient: Greater than 30
--- NOTE | 2018-06-17 10:01 | PCN ---
PROCEDURE NOTE ARTERIAL LINE PLACEMENT: Indications: Hemodynamic monitoring. A time-out was completed verifying correct patient, procedure, site, positioning, and implant(s) or special equipment if applicable. Ramez's test was performed to ensure adequate perfusion. The patient's left wrist was prepped and draped in sterile fashion. 1% Lidocaine was used to anesthetize the area. An 18G Arrow arterial line was introduced into the radial artery. The catheter was threaded over the guide wire and the needle was removed with appropriate pulsatile blood return. Blood loss was minimal. The catheter was then sutured in place to the skin and a sterile dressing applied. Perfusion to the extremity distal to the point of catheter insertion was checked and found to be adequate. The patient tolerated the procedure well and there were no complications. Blood return was obtained, waveform was noted, line was sutured in place and sterile dressing was applied by the nursing staff, no immediate complications. MMODL / IJN: [id number] /
[2018-06-17] MEDS: VANCOMYCIN 1,000 MG in SODIUM CHLORIDE 0.9% 250 ML IVPB SCH (10:21)
[2018-06-17] MEDS: IPRATROPIUM-ALBUTEROL 3 ML NEB INHALATION SCH ×3 (11:42→20:19)
[2018-06-17] MEDS: FERROUS SULFATE 325 MG TAB PO SCH ×2 (11:45→22:01)
[2018-06-17] MEDS: HEPARIN SODIUM,PORCINE 5,000 UNIT/ML 1 ML VIAL SQ SCH ×2 (11:46→22:01)
[2018-06-17] MEDS: BENZTROPINE MESYLATE 0.5 MG TAB PO SCH ×2 (11:46→22:01)
[2018-06-17] MEDS: risperiDONE 1 MG TAB PO SCH ×2 (11:46→22:01)
[2018-06-17] MEDS: PANTOPRAZOLE 40 MG TABLET PO SCH (11:46)
[2018-06-17] MEDS: LEVOTHYROXINE 125 MCG TAB PO SCH (11:46)
[2018-06-17] MEDS: ASPIRIN 81 MG PO SCH (11:49)
[2018-06-17 12:14] LABS: Glucose,Whole Blood 69 mg/dL (75-99)
[2018-06-17] MEDS: DEXTROSE 50%-WATER 50 ML SYRINGE IVP STA (12:17)
[2018-06-17] MEDS: DIVALPROEX ER 250 MG TAB.ER.24H PO SCH (12:20)
[2018-06-17] MEDS ORDERED: DEXTROSE 5%-0.9% NACL 1,000 ML IV SCH (12:30)
[2018-06-17 12:44] LABS: Glucose,Whole Blood 131 mg/dL (75-99)
[2018-06-17 16:21] LABS: Glucose,Whole Blood 75 mg/dL (75-99)
[2018-06-17] MEDS: ATORVASTATIN 10 MG TAB PO SCH (17:56)
[2018-06-17 18:22] LABS: Glucose,Whole Blood 81 mg/dL (75-99)
[2018-06-17 19:41] LABS: Glucose,Whole Blood 76 mg/dL (75-99)
[2018-06-17 20:28] LABS: Glucose,Whole Blood 84 mg/dL (75-99)
[2018-06-17 23:08] LABS: Glucose,Whole Blood 75 mg/dL (75-99)
[2018-06-17] MEDS: IPRATROPIUM-ALBUTEROL 3 ML NEB INHALATION PRN (23:23)
--- NOTE | 2018-06-18 01:04 | HP ---
HISTORY AND PHYSICAL DATE OF ADMISSION: June 17, 2018. DATE OF SERVICE: June 17, 2018. PRESENTING COMPLAINT: Decreased responsiveness. HISTORY OF PRESENTING COMPLAINT: This is a 78-year-old patient who follows with visiting physician Dr. Ponce. The patient is followed by the public guardian's office and has home care 26/12 and at baseline, the patient gets a pureed diet with assistance. After she had a swallow study at [facility]. The patient is pretty much wheelchair-bound and does pivot. The patient is able to carry out basic communication and does wear a briefs. Four days ago, patient started having decreased oral intake and to the point before presentation not even taking water. The patient was found to have a UTI, was started on Bactrim. The patient started becoming more and more confused and was therefore admitted, because patient was becoming septic and the patient was moved to the intensive care unit. The patient is hypoxic on Venti mask 35%. The patient also been hypothermic, temperature going down to 93, and a Bear Hugger was used. The patient also became hypoglycemic and patient was put on D5 saline at 50 mL an hour. Also on Levophed at 15 mics. Blood cultures are coming back positive for gram-positive cocci luann. History is obtained by the patient's caregiver at the bedside. The patient was earlier seen by the signals analyst Dr. Childers. REVIEW OF SYSTEMS: Cannot be done as patient is very lethargic on a Venti mask. PAST MEDICAL HISTORY: Heart failure, hyperlipidemia, hypertension, mitral valve prolapse, seizure disorder, hypothyroid, Parkinson disease, mental retardation, uses a wheelchair. The patient is able to do some reading and writing. PAST SURGICAL HISTORY: Right hip ORIF. PSYCH HISTORY: Schizophrenia and depression. SOCIAL HISTORY: Patient lives by herself. The patient lives alone, though has 26/12 care. No smoking. No alcohol. PHYSICAL EXAMINATION: VITAL SIGNS: Vital signs on presentation, hypothermic, temperature down to 92 rectal, pulse 70, respiration 9, blood pressure 67/38, pulse ox 97 percent. GENERAL APPEARANCE: Thin build, lying in bed tired-appearing. EYES: Pupils equal. Conjunctivae pale. HEENT: External appearance of nose and ears normal. Oral cavity dry with a Venti mask in place. NECK: JVD unable to assess. Mass not palpable. Respiratory effort normal. LUNGS: Diminished breath sounds. CARDIOVASCULAR: 1st and 2nd sounds normal. No edema. ABDOMEN: Soft, nontender. Liver and spleen not palpable. LYMPHATICS: No lymph nodes palpable in the neck and axilla. PSYCHIATRY: Patient is barely arousable. JVD unable to assess. NEUROLOGICAL: Pupils equal. No facial asymmetry. Currently not following commands. INVESTIGATIONS: Admission labs: White count 3.7, hemoglobin 8.7, platelets 90. Sodium 129, potassium 4.8, BUN 31, creatinine 1.30. Lactic acid 2.4. UA positive for leukocyte esterase. CT scan of the brain shows some atrophy and some hydrocephalus. No change compared to the old film. EKG tracing reviewed by me shows some ST-segment changes in the inferolateral leads. Chest x-ray film personally reviewed by me shows questionable infiltrates versus fluid. ASSESSMENT: 1. Acute urinary tract infection probably from cystitis with sepsis. 2. Severe sepsis, combination of urinary tract infection, possibly aspiration pneumonia, bilateral. 3. Acute hypoxic respiratory failure requiring Venti mask 55%. 4. Acute lactic acidosis. 5. Severe hypothermia, multifactorial due to sepsis. 6. Acute kidney injury probably acute tubular necrosis. 7. Pancytopenia could be from sepsis. 8. Developmental delay. 9. Parkinson's disorder. 10.Schizoaffective disorder. 11.Chronic medical debility. 12.Essential hypertension. 13.Hyperlipidemia. PLAN: Prognosis is poor. The patient is on IV fluids, Levophed. Also blood cultures have come back positive with gram-positive cocci. The patient also on IV Zosyn and vancomycin. Prognosis is rather poor. Rather significant impaired baseline quality. We will be getting in touch with the patient's legal guardian office. Currently the CODE STATUS IS FULL CODE. Copy to visiting physician Dr. Ponce. MMODL / IJN: [id number] /
[2018-06-18] MEDS: NOREPINEPHRINE 16 MG in SODIUM CHLORIDE 0.9% 250 ML IV SCH (03:09)
[2018-06-18] MEDS: SODIUM CHLORIDE 0.9% 1,000 ML IV SCH (03:48)
[2018-06-18] MEDS: DEXTROSE 50%-WATER 50 ML SYRINGE IVP STA (03:56)
[2018-06-18 04:02] LABS: Glucose,Whole Blood 62 mg/dL (75-99)
[2018-06-18] MEDS ORDERED: DEXTROSE 50%-WATER 50 ML SYRINGE IVP STA ×4 (04:08→09:04)
[2018-06-18] MEDS: IPRATROPIUM-ALBUTEROL 3 ML NEB INHALATION PRN (04:35)
[2018-06-18 04:41] LABS: Glucose,Whole Blood 98 mg/dL (75-99)
[2018-06-18] MEDS ORDERED: LEVOFLOXACIN 750MG-D5W PMX 750 MG in DEXTROSE/WATER 1 150ML.BAG IVPB SCH (05:00)
[2018-06-18 05:14] LABS: Calcium 8.5 mg/dL (8.4-10.2); Potassium 4.5 mmol/L (3.5-5.1)
[2018-06-18] MEDS: VANCOMYCIN 1,000 MG in SODIUM CHLORIDE 0.9% 250 ML IVPB SCH (05:32)
[2018-06-18] MEDS: PIPERACILLIN-TAZOBACTAM 3.375 GM in SODIUM CHLORIDE 0.9% 100 ML IVPB SCH ×3 (05:32→22:45)
[2018-06-18 07:51] LABS: Glucose,Whole Blood 68 mg/dL (75-99)
[2018-06-18 07:51] LABS: Glucose,Whole Blood 65 mg/dL (75-99)
[2018-06-18] MEDS: IPRATROPIUM-ALBUTEROL 3 ML NEB INHALATION SCH ×4 (07:54→20:04)
[2018-06-18] MEDS: BUDESONIDE 0.25 MG/2 ML NEBU INHALATION SCH ×2 (07:54→20:03)
[2018-06-18] MEDS ORDERED: SODIUM CHLORIDE 0.9% 1,000 ML IV SCH (08:15)
[2018-06-18] MEDS ORDERED: DEXTROSE 5%-0.9% NACL 1,000 ML IV SCH (08:15)
[2018-06-18 08:19] LABS: Glucose,Whole Blood 46 mg/dL (75-99)
[2018-06-18 08:31] LABS: Glucose,Whole Blood 227 mg/dL (75-99)
[2018-06-18] MEDS: HEPARIN SODIUM,PORCINE 5,000 UNIT/ML 1 ML VIAL SQ SCH ×2 (08:34→20:42)
[2018-06-18] MEDS: risperiDONE 1 MG TAB PO SCH ×2 (08:35→20:42)
[2018-06-18] MEDS: ASPIRIN 81 MG PO SCH (08:35)
[2018-06-18] MEDS: LEVOTHYROXINE 125 MCG TAB PO SCH (08:35)
[2018-06-18] MEDS: BENZTROPINE MESYLATE 0.5 MG TAB PO SCH ×2 (08:35→20:45)
[2018-06-18 09:13] LABS: Glucose,Whole Blood 60 mg/dL (75-99)
[2018-06-18 09:20] LABS: Anisocytosis Moderate; Basophils % (A) 0 %; Eosinophils # (A) 0.1 k/uL (0-0.7); Eosinophils % (A) 1 %; HCT 23.8 % (34.0-46.0); HGB 7.6 gm/dL (11.4-16.0); Hypochromasia Slight; Lymphocytes # (A) 0.8 k/uL (1.0-4.8); Lymphocytes % (A) 20 %; MCH 27.8 pg (25.0-35.0); MCV 86.9 fL (80.0-100.0); Mean Platelet Volume 10.7; Microcytosis Slight; Monocytes # (A) 0.2 k/uL (0-1.0); Monocytes % (A) 5 %; Neutrophils % (A) 72 %; RBC 2.74 m/uL (3.80-5.40); RDW 21.6 % (11.5-15.5); WBC 4.2 k/uL (3.8-10.6)
[2018-06-18 09:21] LABS: Platelet Count 63 k/uL (150-450)
[2018-06-18] MEDS: DIVALPROEX ER 250 MG TAB.ER.24H PO SCH (09:52)
[2018-06-18] MEDS: FERROUS SULFATE 325 MG TAB PO SCH ×2 (09:52→20:42)
[2018-06-18] MEDS: PANTOPRAZOLE 40 MG TABLET PO SCH (09:52)
[2018-06-18 10:13] LABS: Glucose,Whole Blood 86 mg/dL (75-99)
[2018-06-18 10:13] LABS: Glucose,Whole Blood 55 mg/dL (75-99)
[2018-06-18 10:14] LABS: Poikilocytosis (M) Present
[2018-06-18 10:39] LABS: Glucose,Whole Blood 53 mg/dL (75-99)
[2018-06-18 11:13] LABS: Glucose,Whole Blood 88 mg/dL (75-99)
[2018-06-18] MEDS ORDERED: DOCUSATE ORAL SOLN 100 MG/10 ML CUP PO PRN (11:17)
[2018-06-18 11:41] LABS: Glucose,Whole Blood 57 mg/dL (75-99)
--- NOTE | 2018-06-18 11:45 | XR ---
EXAMINATION TYPE: XR abdomen 1V DATE OF EXAM: 06/18/2018 11:36 AM CLINICAL HISTORY: Nasogastric tube placement. TECHNIQUE: Single supine KUB image of the abdomen is obtained. COMPARISON: None. FINDINGS: Scattered gas is seen in nondilated small bowel bowel loops. Gas and fecal material is seen in nondilated colon. The nasogastric tube coils within the expected region of the gastric body with its fenestrated portion beyond the gastroesophageal junction and distal tip pointed caudal. There is a healed old right fracture deformity surgically fixated of the right proximal femur with remodeling of the femoral acetabular joint. Suspected compression deformities of L3 on L4 are seen. There is a s mall left pleural effusion with associated left basilar airspace disease. There is also blunting of t he right costophrenic angle. Right femoral central venous catheter terminates at the L5 vertebral lev el. IMPRESSION: 1. Enteric tube appears appropriately placed coiled within the expected region of the stomach. 2. There is suspected L3 and L4 compression deformities, age-indeterminate, for which lumbar spine ra diographs could further assess. 3. Bilateral pleural effusions, left greater than right as discussed on the chest radiograph of 2018.
--- NOTE | 2018-06-18 11:53 | P.PN ---
Subjective Progress Note Date: 06/18/18 On today's evaluation of 06/18/2018 I'm seeing this patient for a follow-up. I reviewed the records. This patient has been living at home despite her multiple medical problems and comorbidities. She has several caregivers. She has developmental delay, in addition to various other comorbidities such as Parkinson's disease, hypothyroidism, hypertension, schizoaffective disorder, hyperlipidemia, depression and she is a former smoker. In addition there is a history of congestion heart failure and the patient was in [facility] recently for that problem. At home she was not doing well. She was having altered mentation. She did have one episode of emesis. The visiting physicians were treating this patient for urine checked infection and the patient was given Bactrim. Subsequently she started getting more lethargic and she was getting more short of breath. She came into the hospital because of increased cough and congestion and respiratory distress in addition. Her level of consciousness was also low. CAT scan of the brain showed mild atrophy and no acute changes were seen. Chest x-ray shows cardiomegaly, pulmonary vessel congestion and increased decision edema and the left lower lobe pneumonia cannot be completely excluded. The patient was kept nothing by mouth. The patient was given NG every 4 medication. The patient was placed on a Ventimask. The patient was placed on a combination of Zosyn and vancomycin. This morning, she is a bit more arousable. She is talking to her caregivers on and off yet not consistently. She is profoundly weak. Her coughing mechanism is also weak. Her chest x-ray findings are unchanged. She is having issues with hypoglycemia. The blood sugar is been dropping down to the 50s. The patient received 3 A of D50 since morning and despite that her blood sugars are dropping. Her liver function is within normal. Her cortisol level is at 28. The patient will be started on some enteral feeding for nutritional support and she will be placed on the 10 at the rate of 50 mL an hour. No seizure activity has been noted. She is afebrile for now. Her white cell count is at 4.2. Her platelet count is also dropped down to 63. Objective - Vital Signs Vital signs: Vital Signs Temp 97.6 F 06/18/18 09:00 Pulse 96 06/18/18 11:00 Resp 27 H 06/18/18 11:00 BP 114/86 06/18/18 11:00 Pulse Ox 97 06/18/18 11:00 Intake & Output 06/17/18 06/18/18 06/18/18 18:59 06:59 18:59 Intake Total 2310.938 2083.423 750 Output Total 440 565 195 Balance 7958.021 6098.423 555 Weight 53 kg 60 kg Intake: IV 2140 1650 750 0.9 NACL 940 1100 300 0.9 nACL bolus 1000 d5 0.9 NACL 200 550 450 Intake, IV Titration 170.938 433.423 Amount Norepinephrine 16 mg In 170.938 83.423 Sodium Chloride 0.9% 250 ml @ Titrate IV .Q0M [facility] Rx#:[id number] Sodium Chloride 0.9% 1, 100 000 ml @ 999 mls/hr IV . Q1H1M [facility] Rx#:[id number] Vancomycin 1,000 mg In 250 Sodium Chloride 0.9% 250 ml @ 125 mls/hr IVPB Q24HR@0600 [facility] Rx#: [id number] Output: Urine 440 565 195 Other: Voiding Method Indwelling Catheter Indwelling Catheter Indwelling Catheter ABP, PAP, CO, CI - Last Documented Arterial Blood Pressure 122/53 - Exam GENERAL EXAM: Lethargic, 78-year-old white female patient on 55% Ventimask comfortable in no apparent distress. HEAD: Normocephalic/atraumatic. EYES: Normal reaction of pupils, equal size. Conjunctiva pink, sclera white. NOSE: Clear with pink turbinates. THROAT: No erythema or exudates. NECK: No masses, no JVD, no thyroid enlargement, no adenopathy. CHEST: No chest wall deformity. Symmetrical expansion. LUNGS: Diffuse rhonchi throughout the lung huynh, and the patient has severe kyphoscoliosis of the thoracic spine. CVS: Regular rate and rhythm, normal S1 and S2, no gallops, harsh systolic murmur across the precordium ABDOMEN: Soft, nontender. No hepatosplenomegaly, normal bowel sounds, no guarding or rigidity. EXTREMITIES: No clubbing, no edema, no cyanosis, 2+ pulses and upper and lower extremities. MUSCULOSKELETAL: Muscle strength and tone normal. SPINE: No scoliosis or deformity SKIN: No rashes CENTRAL NERVOUS SYSTEM: Lethargic. No focal deficits, muscle weakness in all 4 extremities. PSYCHIATRIC: Unable to assess - Labs CBC & Chem 7: 06/18/18 04:41 06/18/18 04:41 Labs: Abnormal Lab Results - Last 24 Hours (Table) 06/17/18 06/17/18 06/18/18 Range/Units 12:10 12:32 03:51 RBC (3.80-5.40) m/uL Hgb (11.4-16.0) gm/dL Hct (34.0-46.0) % RDW (11.5-15.5) % Plt Count (150-450) k/uL Lymphocytes # (1.0-4.8) k/uL Sodium (137-145) mmol/L Chloride (98-107) mmol/L Carbon Dioxide (22-30) mmol/L BUN (7-17) mg/dL POC Glucose (mg/dL) 69 L 131 H 62 L (75-99) mg/dL 06/18/18 06/18/18 06/18/18 Range/Units 04:41 04:41 05:49 RBC 2.74 L (3.80-5.40) m/uL Hgb 7.6 L (11.4-16.0) gm/dL Hct 23.8 L (34.0-46.0) % RDW 21.6 H (11.5-15.5) % Plt Count 63 L (150-450) k/uL Lymphocytes # 0.8 L (1.0-4.8) k/uL Sodium 133 L (137-145) mmol/L Chloride 108 H (98-107) mmol/L Carbon Dioxide 20 L (22-30) mmol/L BUN 21 H (7-17) mg/dL POC Glucose (mg/dL) 68 L (75-99) mg/dL 06/18/18 06/18/18 06/18/18 Range/Units 05:52 08:01 08:19 RBC (3.80-5.40) m/uL Hgb (11.4-16.0) gm/dL Hct (34.0-46.0) % RDW (11.5-15.5) % Plt Count (150-450) k/uL Lymphocytes # (1.0-4.8) k/uL Sodium (137-145) mmol/L Chloride (98-107) mmol/L Carbon Dioxide (22-30) mmol/L BUN (7-17) mg/dL POC Glucose (mg/dL) 65 L 46 L 227 H (75-99) mg/dL 06/18/18 06/18/18 06/18/18 Range/Units 09:02 09:43 10:27 RBC (3.80-5.40) m/uL Hgb (11.4-16.0) gm/dL Hct (34.0-46.0) % RDW (11.5-15.5) % Plt Count (150-450) k/uL Lymphocytes # (1.0-4.8) k/uL Sodium (137-145) mmol/L Chloride (98-107) mmol/L Carbon Dioxide (22-30) mmol/L BUN (7-17) mg/dL POC Glucose (mg/dL) 60 L 55 L 53 L (75-99) mg/dL 06/18/18 Range/Units 11:29 RBC (3.80-5.40) m/uL Hgb (11.4-16.0) gm/dL Hct (34.0-46.0) % RDW (11.5-15.5) % Plt Count (150-450) k/uL Lymphocytes # (1.0-4.8) k/uL Sodium (137-145) mmol/L Chloride (98-107) mmol/L Carbon Dioxide (22-30) mmol/L BUN (7-17) mg/dL POC Glucose (mg/dL) 57 L (75-99) mg/dL Microbiology - Last 24 Hours (Table) 06/16/18 23:50 Blood Culture Gram Stain - Preliminary Blood Blood Culture - Preliminary Coagulase Negative Staph 06/16/18 23:50 Blood Culture - Final Blood 06/17/18 01:14 Urine Culture - Preliminary Urine,Catheterized Assessment and Plan Plan: Assessment #1. Acute septic shock most likely on the basis of a pneumonia, and a possibility of aspiration pneumonia is considered. The patient may have underlying cardiomyopathy in addition. She remains on 50% Ventimask in addition to broad-spectrum antibiotics for now. The blood cultures negative for coagulase-negative staph. The urine culture is still pending for now. #2. Lactic acidosis improving with IV fluids. #3. Hypothermia, hypotension, altered mentation related to the above #4. Recent urinary tract infection, patient was on Bactrim #5. Acute hypoxemic respiratory failure related to acute pneumonia, possibly related to aspiration and acute exacerbation of congestive heart failure, with an unknown ejection fraction #6. Acute kidney injury [place] improving and the creatinine is down to 1.0 #7. Neutropenia, thrombocytopenia related to sepsis #8. Recurrent bouts of hypoglycemia currently on D10. Liver function tests are within normal limits and there is no sign of liver failure. Could be nutritional. Could be low glycogen stores. #9. Seizure disorder Depakote #10. She of developmental delay, Parkinson's disorder, schizoaffective disorder #11. Recent hospitalization one month ago for acute congestive heart failure and pneumonia at the [facility] #12. History of mitral valve prolapse, and possibly aortic stenosis #13. Gait dysfunction, patient requires 24-hour care with all ADLs including feeding #14. Hypertension, #15 hyperlipidemia #16 chronic anemia Plan Aspiration precautions. Keep the NG tube in place and start the patient on low- dose enteral feeding for nutritional support. Continue Zosyn and vancomycin. We'll obtain records on echocardiogram that was done at [facility] recently. Monitor the blood sugar very closely. Check the blood sugar on hourly basis. Continue D10 for now. I'm hoping to the combination of D10 water and enteral feeding should optimize her blood sugar control. Condition is critical. The current status is full. We'll continue to follow.
[2018-06-18] MEDS: DEXTROSE 10% IN WATER 500 ML in EMPTY BAG 1 BAG IV SCH ×2 (11:56→22:00)
[2018-06-18 12:13] LABS: Glucose,Whole Blood 90 mg/dL (75-99)
[2018-06-18] MEDS ORDERED: FUROSEMIDE 10 MG/ML 2 ML VIAL IV ONE (12:25)
[2018-06-18 13:10] LABS: Glucose,Whole Blood 70 mg/dL (75-99)
[2018-06-18 13:44] LABS: Glucose,Whole Blood 81 mg/dL (75-99)
[2018-06-18 14:54] LABS: Glucose,Whole Blood 88 mg/dL (75-99)
[2018-06-18] MEDS: ATORVASTATIN 10 MG TAB PO SCH (15:52)
[2018-06-18 16:16] LABS: Glucose,Whole Blood 103 mg/dL (75-99)
[2018-06-18 18:15] LABS: Glucose,Whole Blood 110 mg/dL (75-99)
[2018-06-18 20:19] LABS: Glucose,Whole Blood 102 mg/dL (75-99)
--- NOTE | 2018-06-18 20:22 | ECHOF ---
Referral Reason:CHF MEASUREMENTS -------- HEIGHT: 157.5 cm WEIGHT: 59.9 kg BP: 131/57 IVSd: 1.0 cm (0.6 - 1.1) LVIDd: 3.3 cm (3.9 - 5.3) LVPWd: 1.0 cm (0.6 - 1.1) IVSs: 1.3 cm LVIDs: 2.1 cm LVPWs: 1.1 cm LAESV Index (A-L): 35.35 ml/m Ao Diam: 2.5 cm (2.0 - 3.7) AV Cusp: 1.0 cm (1.5 - 2.6) LA Diam: 3.5 cm (2.7 - 3.8) MV EXCURSION: 14.230 mm (> 18.000) MV EF SLOPE: 62 mm/s (70 - 150) EPSS: 2.8 cm MV E Koffi: 1.68 m/s MV DecT: 164 ms MV A Koffi: 1.53 m/s MV E/A Ratio: 1.10 AV maxP.23 mmHg AV meanP.88 mmHg RAP: 5.00 mmHg RVSP: 49.46 mmHg FINDINGS -------- Resting tachycardia (HR>100bpm). This was a technically good study. The left ventricular size is normal. Left ventricular wall thickness is normal. Overall left vent ricular systolic function is low-normal with, an EF between 50 - 55 %. The right ventricle is normal in size and function. LA is moderately dilated 34-39 ml/m2 The right atrium is normal in size. Aortic valve is trileaflet and is moderately thickened. There is moderate aortic stenosis present. Peak/mean gradient across the Aortic Valve is 30.23mmHg / 18.88mmHg. The mitral valve leaflets are mildly thickened. Mild mitral annular calcification present. Severe mitral regurgitation is present. Mild tricuspid regurgitation present. There is mild to moderate pulmonary hypertension. The right ventricular systolic pressure, as measured by Doppler, is 49.46mmHg. Pulmonic valve appears structurally normal. The aortic root size is normal. Normal inferior vena cava with normal inspiratory collapse consistent with estimated right atrial pre ssure of 5 mmHg. Large Pleural Effusion. CONCLUSIONS -------- 1. Resting tachycardia (HR>100bpm). 2. This was a technically good study. 3. The left ventricular size is normal. 4. Left ventricular wall thickness is normal. 5. The right ventricle is normal in size and function. 6. LA is moderately dilated 34-39 ml/m2 7. The right atrium is normal in size. 8. Aortic valve is trileaflet and is moderately thickened. 9. There is moderate aortic stenosis present. 10. Peak/mean gradient across the Aortic Valve is 30.23mmHg / 18.88mmHg. 11. The mitral valve leaflets are mildly thickened. 12. Mild mitral annular calcification present. 13. Severe mitral regurgitation is present. 14. Mild tricuspid regurgitation present. 15. There is mild to moderate pulmonary hypertension. 16. The right ventricular systolic pressure, as measured by Doppler, is 49.46mmHg. 17. Pulmonic valve appears structurally normal. 18. The aortic root size is normal. 19. Normal inferior vena cava with normal inspiratory collapse consistent with estimated right atrial pressure of 5 mmHg. 20. Large Pleural Effusion. CHANNEL ACCOUNT MANAGER: Gabriella Shoemaker RDCS
[2018-06-18 22:20] LABS: Glucose,Whole Blood 101 mg/dL (75-99)
[2018-06-19] MEDS ORDERED: FUROSEMIDE 10 MG/ML 2 ML VIAL IV ONE (00:07)
[2018-06-19 02:11] LABS: Glucose,Whole Blood 122 mg/dL (75-99)
[2018-06-19] MEDS: PIPERACILLIN-TAZOBACTAM 3.375 GM in SODIUM CHLORIDE 0.9% 100 ML IVPB SCH (05:19)
[2018-06-19 05:39] LABS: Glucose,Whole Blood 106 mg/dL (75-99)
--- NOTE | 2018-06-19 05:41 | PN ---
PROGRESS NOTE DATE OF SERVICE: 06/18/2018 PRESENTING COMPLAINT: Decreased responsiveness. INTERVAL HISTORY: This patient was seen by me yesterday in the ICU on 06/18/2018. The patient admitted with acute UTI with sepsis, aspiration pneumonia, hypoxic respiratory failure, severe hypothermia, acute kidney injury and pancytopenia. The patient has developmental delay. Caregiver at the bedside and has a visiting niece. The patient had been hypoglycemic earlier, has tube feeding, was also started on a dextrose drip. The patient remains on the high-flow oxygen at 11 L. Telemetry shows sinus rhythm. The patient has had decreased responsiveness. REVIEW OF SYSTEMS: Could not be done as patient has decreased responsiveness. CURRENT MEDICATIONS: Current medications are reviewed that include DuoNeb, aspirin, Lipitor, inhaled Pulmicort, D10, 50 mL an hour Depakote, subcu heparin, had been on Levophed, IV Zosyn, vancomycin, . PHYSICAL EXAMINATION: On examination, afebrile, pulse 72, respiration 24, blood pressure 99/60, pulse ox 99% on high-flow oxygen. GENERAL APPEARANCE: Lying in bed, lethargic. EYES: Pupil equal. Conjunctivae pale. NECK: JVD unable to assess. Mass not palpable. RESPIRATORY: Effort increased. LUNGS: Decreased breath sounds. CARDIOVASCULAR: First and second sounds normal. No edema. ABDOMEN: Soft, nontender. Liver and spleen not palpable. PSYCHIATRY: Lethargic unable to assess further. NEUROLOGICAL: Pupils are equal. No facial asymmetry. INVESTIGATIONS: White count 4.2, hemoglobin 7.6, platelets 63. Potassium 4.5, BUN 21, creatinine 1.02. Blood culture showing coagulase-negative Staph. ASSESSMENT: 1. Acute urinary tract infection from cystitis with sepsis on presentation. 2. Severe sepsis, combination of urinary tract infection, possible aspiration pneumonia bilateral, present on admission. 3. Acute hypoxic respiratory failure requiring Ventimask, currently on high-flow at 11 L, slow to respond. 4. Acute lactic acidosis. 5. Severe hypothermia, multifactorial due to sepsis, persistent. 6. Acute kidney injury probably acute tubular necrosis with some improvement in renal function. 7. Pancytopenia, could be from sepsis. 8. Developmental delay. 9. Parkinson's disorder. 10.Schizoaffective disorder. 11.Chronic medical debility. 12.Essential hypertension, history of. 13.Hyperlipidemia. 14.Septic shock requiring pressors initially. PLAN: Prognosis remains guarded. Continue supportive care, antibiotics. Blood cultures come back to show to be contaminated. The patient's code status is FULL. Care was discussed with the caregiver and niece at the bedside. Patient is being followed by director of psychiatry. MMODL / IJN: [id number] /
[2018-06-19 06:04] LABS: Anisocytosis Moderate; HCT 23.3 % (34.0-46.0); HGB 7.4 gm/dL (11.4-16.0); Hypochromasia Slight; MCH 27.9 pg (25.0-35.0); MCV 87.3 fL (80.0-100.0); Mean Platelet Volume 9.7; Microcytosis Slight; RBC 2.66 m/uL (3.80-5.40); WBC 4.8 k/uL (3.8-10.6)
[2018-06-19 06:11] LABS: Platelet Count 44 k/uL (150-450)
[2018-06-19] MEDS: VANCOMYCIN 1,000 MG in SODIUM CHLORIDE 0.9% 250 ML IVPB SCH (06:12)
[2018-06-19 06:19] LABS: Calcium 8.6 mg/dL (8.4-10.2); Potassium 4.1 mmol/L (3.5-5.1)
--- NOTE | 2018-06-19 06:25 | XR ---
EXAMINATION TYPE: XR chest 1V DATE OF EXAM: 06/19/2018 CLINICAL HISTORY: Difficulty breathing and pulmonary edema progress study. TECHNIQUE: Single AP portable semiupright view of the chest is obtained. COMPARISON: Chest x-ray from 2 days earlier and older studies. FINDINGS: There is new nasogastric tube projecting below diaphragm. Persistent cardiomegaly. There i s increasing opacities bilaterally now silhouetting the hemidiaphragms and bilateral heart borders. O sseous structures are intact. IMPRESSION: Increasing diffuse bilateral and alveolar and interstitial edema and/or infiltrates with probable persistent small bilateral pleural effusions.
[2018-06-19] MEDS: IPRATROPIUM-ALBUTEROL 3 ML NEB INHALATION SCH ×4 (07:25→21:26)
--- NOTE | 2018-06-19 07:56 | P.PN ---
Subjective Progress Note Date: 06/19/18 Today's evaluation of 06/19/2018, the patient seems to be slightly more alert compared to yesterday. Upon stimulation she would open up her eyes and follows some simple commands. She'll also respond whenever she is called her name. She is resting comfortably in bed. Yesterday tube feeds were initiated. This helped her with her recurrent episodes of hypoglycemia that she had developed. For now and blood sugars under better control and she is receiving tube feedings in the form of at the rate of Jevity 20 mL an hour. NG tube is in place. This has been confirmed by an abdominal x-ray. No residuals. She is tolerating the tube feeds fine. The patient was also given a dose of Lasix yesterday. She was given 20 mg of IV Lasix following that she had an adequate diuresis. On today's evaluation she continues to have a congested cough. Her chest x-ray shows worsening of the bilateral pulmonary infiltrates and possible effusion on the left. Nevertheless, she is doing better oxygenation ivan. She is on nasal cannula at 8 L per minute. She is on a combination of Zosyn and vancomycin. She is also on DuoNeb nebulized treatment [id number]. She is receiving Pulmicort Respules. She is producing adequate amount of urine output. White cell count is not elevated at 4.8. Function is stable. Echocardiogram that was done last month at [facility] showed a preserved LV function. Objective - Vital Signs Vital signs: Vital Signs Temp 96.6 F L 06/18/18 16:00 Pulse 84 06/19/18 07:38 Resp 16 06/18/18 20:14 BP 99/59 06/18/18 19:00 Pulse Ox 99 06/19/18 00:01 Intake & Output 06/18/18 06/19/18 06/19/18 18:59 06:59 18:59 Intake Total 1970 135 Output Total 1485 25 Balance 485 110 Weight 60 kg Intake: IV 1900 125 0.9 NACL 1000 100 Dextrose 10% in Water 500 350 25 ml In Empty Bag 1 bag @ 50 mls/hr IV .Q10H [facility] Rx #:[id number] Piperacillin-Tazobactam 3 100 .375 gm In Sodium Chloride 0.9% 100 ml @ 25 mls/hr IVPB Q8H [facility] Rx#: [id number] d5 0.9 NACL 450 Tube Feeding 40 10 Other 30 Output: Urine 1485 25 Other: Voiding Method Indwelling Catheter ABP, PAP, CO, CI - Last Documented Arterial Blood Pressure 110/43 - Exam GENERAL EXAM: Lethargic, 78-year-old white female patient on on 8 L per minute nasal cannula HEAD: Normocephalic/atraumatic. EYES: Normal reaction of pupils, equal size. Conjunctiva pink, sclera white. NOSE: Clear with pink turbinates. THROAT: No erythema or exudates. NECK: No masses, no JVD, no thyroid enlargement, no adenopathy. CHEST: No chest wall deformity. Symmetrical expansion. LUNGS: Diffuse rhonchi throughout the lung huynh, and the patient has severe kyphoscoliosis of the thoracic spine. CVS: Regular rate and rhythm, normal S1 and S2, no gallops, harsh systolic murmur across the precordium ABDOMEN: Soft, nontender. No hepatosplenomegaly, normal bowel sounds, no guarding or rigidity. EXTREMITIES: No clubbing, no edema, no cyanosis, 2+ pulses and upper and lower extremities. MUSCULOSKELETAL: Muscle strength and tone normal. SPINE: No scoliosis or deformity SKIN: No rashes CENTRAL NERVOUS SYSTEM: Lethargic. More awake compared to yesterday. The patient is moving all 4 extremities. Simple commands and being also followed. PSYCHIATRIC: Unable to assess - Labs CBC & Chem 7: 06/19/18 05:30 06/19/18 05:30 Labs: Abnormal Lab Results - Last 24 Hours (Table) 06/18/18 06/18/18 06/18/18 Range/Units 04:41 05:49 05:52 RBC 2.74 L (3.80-5.40) m/uL Hgb 7.6 L (11.4-16.0) gm/dL Hct 23.8 L (34.0-46.0) % RDW 21.6 H (11.5-15.5) % Plt Count 63 L (150-450) k/uL Lymphocytes # 0.8 L (1.0-4.8) k/uL Sodium (137-145) mmol/L Chloride (98-107) mmol/L Glucose (74-99) mg/dL POC Glucose (mg/dL) 68 L 65 L (75-99) mg/dL 06/18/18 06/18/18 06/18/18 Range/Units 08:01 08:19 09:02 RBC (3.80-5.40) m/uL Hgb (11.4-16.0) gm/dL Hct (34.0-46.0) % RDW (11.5-15.5) % Plt Count (150-450) k/uL Lymphocytes # (1.0-4.8) k/uL Sodium (137-145) mmol/L Chloride (98-107) mmol/L Glucose (74-99) mg/dL POC Glucose (mg/dL) 46 L 227 H 60 L (75-99) mg/dL 06/18/18 06/18/18 06/18/18 Range/Units 09:43 10:27 11:29 RBC (3.80-5.40) m/uL Hgb (11.4-16.0) gm/dL Hct (34.0-46.0) % RDW (11.5-15.5) % Plt Count (150-450) k/uL Lymphocytes # (1.0-4.8) k/uL Sodium (137-145) mmol/L Chloride (98-107) mmol/L Glucose (74-99) mg/dL POC Glucose (mg/dL) 55 L 53 L 57 L (75-99) mg/dL 06/18/18 06/18/18 06/18/18 Range/Units 12:58 16:03 18:02 RBC (3.80-5.40) m/uL Hgb (11.4-16.0) gm/dL Hct (34.0-46.0) % RDW (11.5-15.5) % Plt Count (150-450) k/uL Lymphocytes # (1.0-4.8) k/uL Sodium (137-145) mmol/L Chloride (98-107) mmol/L Glucose (74-99) mg/dL POC Glucose (mg/dL) 70 L 103 H 110 H (75-99) mg/dL 06/18/18 06/18/18 06/19/18 Range/Units 20:08 22:09 01:59 RBC (3.80-5.40) m/uL Hgb (11.4-16.0) gm/dL Hct (34.0-46.0) % RDW (11.5-15.5) % Plt Count (150-450) k/uL Lymphocytes # (1.0-4.8) k/uL Sodium (137-145) mmol/L Chloride (98-107) mmol/L Glucose (74-99) mg/dL POC Glucose (mg/dL) 102 H 101 H 122 H (75-99) mg/dL 06/19/18 06/19/18 06/19/18 Range/Units 05:26 05:30 05:30 RBC 2.66 L (3.80-5.40) m/uL Hgb 7.4 L (11.4-16.0) gm/dL Hct 23.3 L (34.0-46.0) % RDW 22.0 H (11.5-15.5) % Plt Count 44 L (150-450) k/uL Lymphocytes # (1.0-4.8) k/uL Sodium 136 L (137-145) mmol/L Chloride 109 H (98-107) mmol/L Glucose 100 H (74-99) mg/dL POC Glucose (mg/dL) 106 H (75-99) mg/dL Microbiology - Last 24 Hours (Table) 06/16/18 23:50 Blood Culture Gram Stain - Preliminary Blood Blood Culture - Preliminary Coagulase Negative Staph Assessment and Plan Plan: Assessment #1. Acute hypoxic respiratory failure with bilateral pulmonary infiltrates likely secondary to an aspiration pneumonia. Cardiac combination of Zosyn and vancomycin. Oxygenation is improved and the patient on 8 L of oxygen by nasal cannula. There may be a component of fluid overload also. #2. Lactic acidosis improving with IV fluids. The follow-up lactic acid level is down to 1.4 #3. Hypothermia, recovered and the patient was provided external using #4. Recent urinary tract infection, patient was on Bactrim which has been discontinued and the patient is currently on Zosyn and vancomycin coverage in the urine cultures of been negative #5. Coagulase negative and the blood, likely contaminant #6. Acute kidney injury [place] improving and the creatinine is down to 1.0 #7. Neutropenia, thrombocytopenia related to sepsis. The patient continues to drop in the platelet count. We'll check coagulation profile. We'll switch the patient from Zosyn to IV Merrem. #8. Recurrent bouts of hypoglycemia recovered and the patient is maintaining her blood sugar and the patient is tolerating also tube feeds. #9. Seizure disorder Depakote #10. She of developmental delay, Parkinson's disorder, schizoaffective disorder #11. Recent hospitalization one month ago for acute congestive heart failure and pneumonia at the [facility] #12. History of mitral valve prolapse, and possibly aortic stenosis #13. Gait dysfunction, patient requires 24-hour care with all ADLs including feeding #14. Hypertension, #15 hyperlipidemia #16 chronic anemia, stable with a hemoglobin of 7.4 Plan Aspiration precautions. Keep the NG tube in place and continue tube feeding. Keep the patient on high flow oxygen at 8 L and gradually wean it down as tolerated. Start the patient on Lasix 20 mg IV push every 8 hours. This continued IV Zosyn since this patient to IV Merrem. Stop the subcu heparin and apply SCDs to the lower extremities bilaterally. Continue rest of the medications. Keep the head of the bed elevated. Echocardiogram done recently was noted and the patient has a preserved LV function. Condition remains critical. Patient ICU. CODE STATUS remains full.
[2018-06-19] MEDS: BUDESONIDE 0.25 MG/2 ML NEBU INHALATION SCH ×2 (07:58→21:26)
[2018-06-19] MEDS ORDERED: MEROPENEM 1 GM in SODIUM CHLORIDE 0.9% 100 ML IVPB SCH (08:00)
[2018-06-19] MEDS: ASPIRIN 81 MG PO SCH (08:46)
[2018-06-19] MEDS: DEXTROSE 10% IN WATER 500 ML in EMPTY BAG 1 BAG IV SCH ×2 (08:46→21:45)
[2018-06-19] MEDS: FUROSEMIDE 10 MG/ML 2 ML VIAL IV SCH ×2 (08:46→15:57)
[2018-06-19] MEDS: risperiDONE 1 MG TAB PO SCH ×2 (08:47→21:29)
[2018-06-19] MEDS: BENZTROPINE MESYLATE 0.5 MG TAB PO SCH ×2 (08:47→21:29)
[2018-06-19] MEDS: LEVOTHYROXINE 125 MCG TAB PO SCH (08:47)
[2018-06-19] MEDS: PANTOPRAZOLE 40 MG TABLET PO SCH (08:47)
[2018-06-19] MEDS: FERROUS SULFATE 325 MG TAB PO SCH ×2 (08:47→21:34)
[2018-06-19] MEDS: VALPROIC ACID ORAL SOLN 250 MG/5 ML CUP NG-TUBE SCH ×3 (08:48→21:29)
[2018-06-19 09:06] LABS: Glucose,Whole Blood 89 mg/dL (75-99)
[2018-06-19 10:35] LABS: Glucose,Whole Blood 115 mg/dL (75-99)
[2018-06-19 12:20] LABS: Glucose,Whole Blood 95 mg/dL (75-99)
[2018-06-19 15:16] LABS: Glucose,Whole Blood 103 mg/dL (75-99)
[2018-06-19] MEDS: ATORVASTATIN 10 MG TAB PO SCH (15:57)
[2018-06-19 16:18] LABS: Glucose,Whole Blood 116 mg/dL (75-99)
[2018-06-19 17:14] LABS: Glucose,Whole Blood 114 mg/dL (75-99)
[2018-06-19 19:07] LABS: Glucose,Whole Blood 107 mg/dL (75-99)
[2018-06-19 20:16] LABS: Glucose,Whole Blood 105 mg/dL (75-99)
[2018-06-19] MEDS: MEROPENEM 1 GM in SODIUM CHLORIDE 0.9% 100 ML IVPB SCH (21:41)
[2018-06-19 22:24] LABS: Glucose,Whole Blood 123 mg/dL (75-99)
--- NOTE | 2018-06-19 22:57 | PN ---
PROGRESS NOTE DATE OF SERVICE: 06/19/2018. PRESENTING COMPLAINT: Short of breath. INTERVAL HISTORY: This patient is in the ICU, admitted with acute UTI, sepsis, aspiration pneumonia, hypoxic respiratory failure, severe hypothermia, acute kidney injury and pancytopenia. The patient at baseline has developmental delay. Remains in the ICU. The patient has been off Levophed since yesterday, on high-flow oxygen at 9 liters. Telemetry shows sinus rhythm and is getting tube feeding. REVIEW OF SYSTEMS: Cannot be done as patient has decreased responsiveness. CURRENT MEDICATIONS: Reviewed, that include DuoNeb, Lipitor, Cogentin, D5W, Lasix, IV meropenem, IV vancomycin, Risperdal. PHYSICAL EXAMINATION: Temperature 98.1, pulse 89, respirations 23, blood pressure 138/55, pulse ox 98% on 9 liters. GENERAL APPEARANCE: Lying in bed, tired, slightly arousable. EYES: Pupils equal. Conjunctivae pale. NECK: JVD unable to assess. Mass not palpable. Respiratory effort increased. LUNGS: Decreased breath sounds. CARDIOVASCULAR: 1st and 2nd heart sounds. No edema. ABDOMEN: Soft, nontender. Liver and spleen not palpable. PSYCHIATRY: Lethargic. Arousable. NEUROLOGIC: Pupils equal. No facial asymmetry. INVESTIGATIONS: White count 4.8, hemoglobin 7.4, platelets 44, potassium 5.1. BUN and creatinine normal. Accu-Cheks are noted. ASSESSMENT: 1. Acute urinary tract infection from cystitis with sepsis on presentation with cultures growing Staphylococcus Simulans. 2. Severe sepsis, combination of urinary tract infection and possible aspiration pneumonia bilateral, present on admission. 3. Acute hypoxic respiratory failure requiring Ventimask, currently a high-flow, remains on 9 liters, slow to respond. 4. Acute lactic acidosis. 5. Severe hypokalemia, multifactorial due to sepsis, slow to respond. 6. Acute kidney injury, probably acute tubular necrosis with some improvement in renal function. 7. Pancytopenia and bicytopenia, could be from sepsis. 8. Developmental delay. 9. Parkinson disorder. 10.Schizoaffective disorder. 11.Chronic medical debility. 12.Essential hypertension. 13.Hyperlipidemia. 14.Septic shock requiring pressors, now off the same. PLAN: Prognosis remains guarded. The patient is still rather sick. Remains in the ICU. Continue the antibiotics. Supportive care. Medications. CODE STATUS is FULL. One of the caregivers is at the bedside. Follow with ropewalk rope maker. MMVERONICAL / IJN: [id number] /
[2018-06-20 00:20] LABS: Glucose,Whole Blood 106 mg/dL (75-99)
[2018-06-20] MEDS: FUROSEMIDE 10 MG/ML 2 ML VIAL IV SCH ×3 (00:23→15:36)
[2018-06-20 03:52] LABS: Glucose,Whole Blood 96 mg/dL (75-99)
[2018-06-20] MEDS ORDERED: VANCOMYCIN TROUGH DUE 1 EACH MISC MISCELLANE ONE (05:00)
[2018-06-20] MEDS: DEXTROSE 10% IN WATER 500 ML in EMPTY BAG 1 BAG IV SCH (05:14)
[2018-06-20 05:25] LABS: Anisocytosis Moderate; HCT 23.6 % (34.0-46.0); HGB 7.7 gm/dL (11.4-16.0); MCH 28.1 pg (25.0-35.0); MCHC 32.6 g/dL (31.0-37.0); MCV 86.1 fL (80.0-100.0); Mean Platelet Volume 8.9; Microcytosis Slight; Platelet Count 52 k/uL (150-450); RBC 2.74 m/uL (3.80-5.40); RDW 21.7 % (11.5-15.5); WBC 5.7 k/uL (3.8-10.6)
[2018-06-20 05:34] LABS: Anion Gap 5 mmol/L; Blood Urea Nitrogen 15 mg/dL (7-17); Calcium 8.7 mg/dL (8.4-10.2); Carbon Dioxide 28 mmol/L (22-30); Chloride 103 mmol/L (98-107); Glucose 114 mg/dL (74-99); Potassium 3.3 mmol/L (3.5-5.1); Sodium 136 mmol/L (137-145)
[2018-06-20] MEDS: VANCOMYCIN 1,000 MG in SODIUM CHLORIDE 0.9% 250 ML IVPB SCH (06:00)
[2018-06-20] MEDS ORDERED: Potassium Replacement Protocol 1 EACH MISC MISCELLANE PRN (06:07)
[2018-06-20 06:30] LABS: Glucose,Whole Blood 85 mg/dL (75-99)
[2018-06-20] MEDS: POTASSIUM BICARBONATE/CIT AC 20 MEQ TABLET.EFF NG-TUBE SCH ×3 (06:54→11:14)
[2018-06-20] MEDS: BUDESONIDE 0.25 MG/2 ML NEBU INHALATION SCH ×2 (07:57→20:46)
[2018-06-20] MEDS: IPRATROPIUM-ALBUTEROL 3 ML NEB INHALATION SCH ×4 (07:57→20:45)
[2018-06-20] MEDS: FERROUS SULFATE 325 MG TAB PO SCH ×2 (08:09→22:26)
[2018-06-20] MEDS: risperiDONE 1 MG TAB PO SCH ×2 (08:10→22:26)
[2018-06-20] MEDS: LEVOTHYROXINE 125 MCG TAB PO SCH (08:10)
[2018-06-20] MEDS: ASPIRIN 81 MG PO SCH (08:10)
[2018-06-20] MEDS: VALPROIC ACID ORAL SOLN 250 MG/5 ML CUP NG-TUBE SCH ×3 (08:11→22:26)
[2018-06-20] MEDS: BENZTROPINE MESYLATE 0.5 MG TAB PO SCH ×2 (08:11→22:26)
--- NOTE | 2018-06-20 08:14 | XR ---
EXAMINATION TYPE: XR chest 1V DATE OF EXAM: 06/20/2018 COMPARISON: 06/19/2018 INDICATION: Pulmonary edema TECHNIQUE: Single frontal view of the chest is obtained. FINDINGS: The heart size is enlarged. The pulmonary vasculature is prominent. Diffuse increased lung markings are present bilaterally. Bilateral pleural effusions are likely prese nt. There is some improvement of the aeration at the lung apices. Nasogastric tube transverses the thorax as the tip in left upper quadrant of the abdomen. IMPRESSION: 1. Slight improvement of aeration at the lung apices. 2. Bilateral mid and lower lung field opacities. Pleural effusions should be considered.
[2018-06-20] MEDS: MEROPENEM 1 GM in SODIUM CHLORIDE 0.9% 100 ML IVPB SCH ×2 (08:30→22:21)
[2018-06-20 08:38] LABS: Glucose,Whole Blood 129 mg/dL (75-99)
--- NOTE | 2018-06-20 10:51 | US ---
EXAMINATION TYPE: US chest DATE OF EXAM: 06/20/2018 COMPARISON: None CLINICAL HISTORY: bilateral pleural effusions. TECHNIQUE: Targeted ultrasound of the posterior lower bilateral hemithoraces EXAM MEASUREMENTS: Right Pleural Effusion pocket size: 2.1 cm Left Pleural Effusion pocket size: 2.9 cm Left skin surface to fluid distance: 2.5 cm Left side marked for possible thoracentesis outside the dept. Pulmonologists are able to review the images in the patient?s EMR. IMPRESSIONS: 1. Bilateral pleural effusions.
[2018-06-20] MEDS: PANTOPRAZOLE 40 MG/10 ML VIAL IVP SCH (11:14)
[2018-06-20 11:56] LABS: Glucose,Whole Blood 93 mg/dL (75-99)
[2018-06-20] MEDS: ATORVASTATIN 10 MG TAB PO SCH (15:36)
--- NOTE | 2018-06-20 16:56 | P.PN ---
Subjective Progress Note Date: 06/20/18 On 06/20/2018, the patient is still in the intensive care unit regarding her pneumonia. The patient had a chest x-ray today that showed stable findings of breath and pulmonary infiltrates and suspected pleural effusions in the lung bases bilaterally. Based on that an ultrasound of the chest was done and showed small amount of effusion. She has a congested cough. Unable to bring up much sputum. She remains on IV meropenem as I stopped the Zosyn as the patient was developing thrombocytopenia. The patient is still on vancomycin.. She still on DuoNeb neb attachments [id number]. She is on Pulmicort Respules. She is also being diuresis with IV Lasix. She is receiving Lasix 20 mg IV push every 8 hours. The patient is a negative fluid balance of 1.4 L over the past 24 hours. Hemoglobin is 7.7. Platelet count is at 52,000 slightly improved compared to yesterday. The patient is following some simple commands. Overall, looks improved over the past 24-48 hours. NG tube is in place and the patient continues to receive enteral feeding for nutritional support. No hypoglycemia. The D5 water will be discontinued. Objective - Vital Signs Vital signs: Vital Signs Temp 96.3 F L 06/20/18 12:00 Pulse 80 06/20/18 16:25 Resp 22 06/20/18 13:00 BP 116/75 06/20/18 13:00 Pulse Ox 94 L 06/20/18 13:00 Intake & Output 06/19/18 06/20/18 06/20/18 18:59 06:59 18:59 Intake Total 1430 1115 420 Output Total 2220 1770 1300 Balance -790 -655 -880 Weight 61.5 kg 61.5 kg Intake: IV 995 490 280 0.9 NACL 630 390 180 Dextrose 10% in Water 500 265 ml In Empty Bag 1 bag @ 50 mls/hr IV .Q10H DEANNA Rx #:[id number] Meropenem 1 gm In Sodium 100 100 100 Chloride 0.9% 100 ml @ 200 mls/hr IVPB Q8HR DEANNA Rx#:[id number] Intake, IV Titration 50 Amount Dextrose 10% in Water 500 50 ml In Empty Bag 1 bag @ 50 mls/hr IV .Q10H DEANNA Rx #:[id number] Tube Feeding 315 455 140 Other 120 120 Output: Urine 2220 1770 1300 Other: Voiding Method Indwelling Catheter Indwelling Catheter Indwelling Catheter ABP, PAP, CO, CI - Last Documented Arterial Blood Pressure 149/55 - Exam GENERAL EXAM: Lethargic, 78-year-old white female patient on on 8 L per minute nasal cannula HEAD: Normocephalic/atraumatic. EYES: Normal reaction of pupils, equal size. Conjunctiva pink, sclera white. NOSE: Clear with pink turbinates. THROAT: No erythema or exudates. NECK: No masses, no JVD, no thyroid enlargement, no adenopathy. CHEST: No chest wall deformity. Symmetrical expansion. LUNGS: Diffuse rhonchi throughout the lung huynh, and the patient has severe kyphoscoliosis of the thoracic spine. CVS: Regular rate and rhythm, normal S1 and S2, no gallops, harsh systolic murmur across the precordium ABDOMEN: Soft, nontender. No hepatosplenomegaly, normal bowel sounds, no guarding or rigidity. EXTREMITIES: No clubbing, no edema, no cyanosis, 2+ pulses and upper and lower extremities. MUSCULOSKELETAL: Muscle strength and tone normal. SPINE: No scoliosis or deformity SKIN: No rashes CENTRAL NERVOUS SYSTEM: Lethargic. More awake compared to yesterday. The patient is moving all 4 extremities. Simple commands and being also followed. PSYCHIATRIC: Unable to assess - Labs CBC & Chem 7: 06/20/18 05:00 06/20/18 15:30 Labs: Abnormal Lab Results - Last 24 Hours (Table) 06/19/18 06/19/18 06/19/18 Range/Units 17:03 18:55 20:05 RBC (3.80-5.40) m/uL Hgb (11.4-16.0) gm/dL Hct (34.0-46.0) % RDW (11.5-15.5) % Plt Count (150-450) k/uL Sodium (137-145) mmol/L Potassium (3.5-5.1) mmol/L Glucose (74-99) mg/dL POC Glucose (mg/dL) 114 H 107 H 105 H (75-99) mg/dL 06/19/18 06/20/18 06/20/18 Range/Units 22:12 00:08 05:00 RBC (3.80-5.40) m/uL Hgb (11.4-16.0) gm/dL Hct (34.0-46.0) % RDW (11.5-15.5) % Plt Count (150-450) k/uL Sodium 136 L (137-145) mmol/L Potassium 3.3 L (3.5-5.1) mmol/L Glucose 114 H (74-99) mg/dL POC Glucose (mg/dL) 123 H 106 H (75-99) mg/dL 06/20/18 06/20/18 Range/Units 05:00 08:25 RBC 2.74 L (3.80-5.40) m/uL Hgb 7.7 L (11.4-16.0) gm/dL Hct 23.6 L (34.0-46.0) % RDW 21.7 H (11.5-15.5) % Plt Count 52 L (150-450) k/uL Sodium (137-145) mmol/L Potassium (3.5-5.1) mmol/L Glucose (74-99) mg/dL POC Glucose (mg/dL) 129 H (75-99) mg/dL Microbiology - Last 24 Hours (Table) 06/16/18 23:50 Blood Culture Gram Stain - Final Blood Blood Culture - Final Staph capitis SS ureolyticus 06/17/18 01:14 Urine Culture - Final Urine,Catheterized Staphylococcus simulans Assessment and Plan Plan: Assessment #1. Acute hypoxic respiratory failure with bilateral pulmonary infiltrates likely secondary to an aspiration pneumonia. She is currently on IV Merrem. The patient is being diuresed with Lasix. Ultrasound of the chest shows small better pleural effusion and these are not and the bowel for thoracentesis at this point in time. #2. Lactic acidosis improving with IV fluids. The follow-up lactic acid level is down to 1.4 #3. Hypothermia, recovered and the patient was provided external, and this has recovered and the patient is normothermic at this point in time. #4. Recent urinary tract infection, the patient has staphylococcal species in the urine and the blood cultures #5 Staphylococcal UTI with secondary sepsis and the patient is currently on IV Merrem and vancomycin. #6. Acute kidney injury [place] improving and the creatinine is down to 1.0 #7. Thrombocytopenia, improving #8. Hypoglycemia, recovered #9. Seizure disorder Depakote #10. developmental delay, Parkinson's disorder, schizoaffective disorder #11. Recent hospitalization one month ago for acute congestive heart failure and pneumonia at the [facility] #12. History of mitral valve prolapse, and possibly aortic stenosis #13. Gait dysfunction, patient requires 24-hour care with all ADLs including feeding #14. Hypertension, #15 hyperlipidemia #16 chronic anemia, stable with a hemoglobin of 7.7 Plan Continue IV Merrem and vancomycin. Continue IV Lasix. Clinically improved compared to yesterday. She is diuresing. Repeat chest x-ray in the morning. No need for thoracentesis of the patient's pleural effusion is small. Stop the D5 water. Continue enteral feeding for nutrition support. Monitor the hemoglobin. Monitor the blood sugars. We'll continue to follow. CODE STATUS is still full.
[2018-06-20 17:43] LABS: Glucose,Whole Blood 112 mg/dL (75-99)
[2018-06-20] MEDS ORDERED: POTASSIUM BICARBONATE/CIT AC 20 MEQ TABLET.EFF NG-TUBE SCH (18:00)
[2018-06-20 20:32] LABS: Glucose,Whole Blood 136 mg/dL (75-99)
[2018-06-20] MEDS ORDERED: VANCOMYCIN 1,000 MG in SODIUM CHLORIDE 0.9% 250 ML IVPB SCH (22:00)
[2018-06-21] MEDS: FUROSEMIDE 10 MG/ML 2 ML VIAL IV SCH ×3 (00:35→16:38)
--- NOTE | 2018-06-21 02:01 | PN ---
PROGRESS NOTE DATE OF SERVICE: 06/20/2018. INTERVAL HISTORY: This patient was seen by me yesterday on 06/20/2018 in the ICU. Admitted with acute UTI, sepsis, aspiration pneumonia, acute hypoxic respiratory failure, severe hypothermia, acute kidney injury and pancytopenia. Patient at baseline has developmental delay. The patient was on Levophed previously. Patient had been hypoglycemic for which she received D5W that has been discontinued today. NG tube feeding continues. The patient has been more responsive, though a bit more lethargic. Remains on oxygen support. REVIEW OF SYSTEMS: Cannot be done as patient is not communicating much, though better than before. CURRENT MEDICATIONS: Reviewed, that include IV vancomycin, IV meropenem. PHYSICAL EXAMINATION: VITAL SIGNS: Temperature 97.5 pulse 76, respirations 21, blood pressure 134/76, pulse ox 96% on 5 L. GENERAL APPEARANCE: Lying in bed, a bit more responsive. EYES: Pupils equal. Conjunctivae pale. NECK: JVD unable to assess. Mass not palpable. Respiratory effort increased. LUNGS: Decreased breath sounds. CARDIOVASCULAR: 1st and 2nd sounds. No edema. ABDOMEN: Soft, nontender. Liver and spleen not palpable. PSYCHIATRY: Attempting to answer some questions. NEUROLOGICAL: Pupils equal. No facial asymmetry. ENT: NG tube remains in place. INVESTIGATIONS: White count 5.7, hemoglobin 7.7, potassium 3.3. BUN and creatinine normal. Urine culture showing Staphylococcus Simulans and blood culture did show Staphylococcus capitis urolyticus. ASSESSMENT: 1. Acute urinary tract infection from cystitis with sepsis on presentation, cultures growing Staphylococcus Simulans. 2. Severe sepsis, combination of urinary tract infection and possible aspiration pneumonia bilateral, present on admission. 3. Acute hypoxic respiratory failure requiring Ventimask, currently down to 6 L, slow to respond. 4. Acute lactic acidosis. 5. Severe hypokalemia, multifactorial due to sepsis. 6. Acute kidney injury, probable acute tubular necrosis with creatinine going back to normal. 7. Pancytopenia and bicytopenia, probably secondary to sepsis. 8. Developmental delay. 9. Parkinson disorder. 10.Schizoaffective disorder. 11.Chronic medical debility. 12.Essential hypertension, history of. 13.Hyperlipidemia. 14.Septic shock status post being on the pressors. 15.Blood cultures positive for Staphylococcus capitis urolyticus. PLAN: Continue with current antibiotics. The patient started to respond. Did speak to the nurse, if the patient because more alert can be given a trial of applesauce. Code status remains FULL. Prognosis is guarded. MMODL / IJN: [id number] /
[2018-06-21 02:39] LABS: Glucose,Whole Blood 118 mg/dL (75-99)
[2018-06-21 05:23] LABS: Anisocytosis Moderate; HCT 23.1 % (34.0-46.0); HGB 7.4 gm/dL (11.4-16.0); MCHC 32.2 g/dL (31.0-37.0); Mean Platelet Volume 9.6; Microcytosis Slight; RBC 2.65 m/uL (3.80-5.40); RDW 21.5 % (11.5-15.5); WBC 6.9 k/uL (3.8-10.6)
[2018-06-21 05:26] LABS: Anion Gap 4 mmol/L; Blood Urea Nitrogen 18 mg/dL (7-17); Calcium 8.6 mg/dL (8.4-10.2); Carbon Dioxide 37 mmol/L (22-30); Chloride 97 mmol/L (98-107); Glucose 107 mg/dL (74-99); Platelet Count 56 k/uL (150-450); Potassium 4.3 mmol/L (3.5-5.1); Sodium 138 mmol/L (137-145)
[2018-06-21] MEDS: BUDESONIDE 0.25 MG/2 ML NEBU INHALATION SCH ×2 (07:48→19:44)
[2018-06-21] MEDS: IPRATROPIUM-ALBUTEROL 3 ML NEB INHALATION SCH ×4 (07:49→19:43)
[2018-06-21] MEDS: PANTOPRAZOLE 40 MG/10 ML VIAL IVP SCH (09:02)
[2018-06-21] MEDS: VALPROIC ACID ORAL SOLN 250 MG/5 ML CUP NG-TUBE SCH ×3 (09:02→21:47)
[2018-06-21] MEDS: MEROPENEM 1 GM in SODIUM CHLORIDE 0.9% 100 ML IVPB SCH ×2 (09:02→21:46)
[2018-06-21] MEDS: FERROUS SULFATE 325 MG TAB PO SCH ×2 (09:03→21:47)
[2018-06-21] MEDS: LEVOTHYROXINE 125 MCG TAB PO SCH (09:03)
[2018-06-21] MEDS: risperiDONE 1 MG TAB PO SCH ×2 (09:03→21:47)
[2018-06-21] MEDS: ASPIRIN 81 MG PO SCH (09:03)
[2018-06-21] MEDS: BENZTROPINE MESYLATE 0.5 MG TAB PO SCH ×2 (09:03→21:51)
[2018-06-21] MEDS: VANCOMYCIN 1,000 MG in SODIUM CHLORIDE 0.9% 250 ML IVPB SCH ×2 (10:35→21:46)
[2018-06-21 11:45] LABS: Glucose,Whole Blood 108 mg/dL (75-99)
--- NOTE | 2018-06-21 13:06 | XR ---
EXAMINATION TYPE: XR chest 1V DATE OF EXAM: 06/21/2018 COMPARISON: 06/20/2018 HISTORY: Pneumonia. Follow-up exam. Shortness of breath. TECHNIQUE: Single frontal view of the chest is obtained. FINDINGS: There is improved aeration throughout the mid and upper lungs as well as the right lower l didi however there remain bilateral multifocal consolidations with probable moderate left pleural effu dennis and small right pleural effusion as there is a gradient effect. Linear right midlung atelectasis remains. Cardiac silhouette is obscured. Enteric tube coils in terminates off the distal field-of-vi ew although its fenestrated portion is appropriately placed beyond the gastroesophageal junction. The re is diffuse osseous demineralization present. IMPRESSION: Improved aeration of the lungs with moderate left and small right pleural effusions and multifocal consolidations remaining.
--- NOTE | 2018-06-21 15:50 | CDI ---
Documentation Clarification Form Date: 06/21/2018 3:14:11 PM From: Kim RetanaHope, DEZ, CCDS Admit Date: 06/17/2018 4:47:00 AM Patient Name: Zoraida Holloway Visit Number: [id number] Discharge Date: ATTENTION: The Clinical Documentation Specialists (CDI) and [facility] Coding Staff appreciate your assistance in clarifying documentation. Please respond to the clarification below the line at the bottom and electronically sign. The CDI & [facility] Coding staff will review the response and follow-up if needed. Please note: Queries are made part of the Legal Health Record. If you have any questions, please contact the author of this message via ITS. Dr. Anibal Brown: Per the pulmonary consult: "Acute hypoxemic respiratory failure related to acute pneumonia, possibly related to aspiration and acute exacerbation of congestive heart failure, with an unknown ejection fraction." History/Risk Factors: CHF, Hyperlipidemia, Hypertension, Mitral Valve Prolapse, Hypothyroid, Parkinson's, mental retardation. Clinical Indicators: Presented to the ER with altered mental status, weakness, confusion x3 days, decreased oral intake. Previously on Bactrim for UTI. VS: T 92.1*, P 80, R 18, BP 111/70, PO 92 3Lnc LAB: Pancytopenia w/WBC 3.7*, RBC 3.18*, Hgb 8.7*, Hct 27.0*, Pl Ct 90*. Lactic Acid 2.4^^. UA: cloudy, lg esterase. Blood cx: Staph capitis SS ureolyticus. Urine cx: Staph simulans RAD: CXR: CHF EKG: R 69 nsr BNP 2630 ECHO 06/18: EF 50-55%, systolic low normal. Mod aortic stenosis, Severe MR, mild TR, mild - moderate pulmonary hypertension. Treatment: IV Rocephin, IV fluid 1000, IV Zosyn, IV Levaquin, IV fluid bolus, IV Norepinephrine, IV SoluCortef, Albuterol INH, IV Lasix started 06/18. Cardiology has not been consulted. In your professional opinion, can you please clarify the acuity and type of CHF if known? Systolic Heart Failure: o Acute o Chronic o Acute on Chronic Diastolic Heart Failure: o Acute o Chronic o Acute on Chronic Systolic & Diastolic Heart Failure: o Acute o Chronic o Acute on Chronic Heart Failure Unable to Determine Other, please specify (Last Revision: September 2017) Chronic diastolic heart failure [facility]
[2018-06-21] MEDS: ATORVASTATIN 10 MG TAB PO SCH (16:37)
[2018-06-21 16:59] LABS: Glucose,Whole Blood 103 mg/dL (75-99)
--- NOTE | 2018-06-21 17:17 | P.PN ---
Subjective Progress Note Date: 06/21/18 On 06/21/2018 I'm seeing this patient for a follow-up. I will say she spent much the same compared to yesterday. Clinically she is a bit more sleepy. She is arousable however she is talking less compared to yesterday. A repeat chest x-ray was done and showed improved aeration of the lungs and there was evidence of pleural effusion bilaterally. There is also multifocal consolidation still present. I performed ultrasound of the chest yesterday and I was not able to identify any sizable pleural effusion and basilar no thoracentesis was done. The patient meanwhile is on accommodation of Merrem and vancomycin. The patient is using DuoNeb nebulized treatments around the clock. She is receiving enteral feedings through NG tube for nutritional support. She remains on IV Lasix. She is a negative fluid balance. No hypoglycemic events. Her hemoglobin today is at 7.4. No cervical leukocytosis. Urine culture was positive for Staphylococcus species. Caregivers at the bedside. Objective - Vital Signs Vital signs: Vital Signs Temp 98.0 F 06/21/18 12:00 Pulse 79 06/21/18 16:39 Resp 20 06/21/18 16:32 BP 123/67 06/21/18 13:00 Pulse Ox 94 L 06/21/18 13:00 Intake & Output 06/20/18 06/21/18 06/21/18 18:59 06:59 18:59 Intake Total 985 660 890 Output Total 2340 1060 1685 Balance -1355 -400 -795 Weight 61.5 kg 63.2 kg Intake: IV 440 220 100 0.9 NACL 340 220 100 Meropenem 1 gm In Sodium 100 Chloride 0.9% 100 ml @ 200 mls/hr IVPB Q8HR DEANNA Rx#:[id number] Intake, IV Titration 350 Amount Meropenem 1 gm In Sodium 100 Chloride 0.9% 100 ml @ 200 mls/hr IVPB Q12HR DEANNA Rx#:[id number] Vancomycin 1,000 mg In 250 Sodium Chloride 0.9% 250 ml @ 125 mls/hr IVPB Q12HR DEANNA Rx#:[id number] Tube Feeding 545 440 440 Output: Urine 2340 1060 1685 Other: Voiding Method Indwelling Catheter Indwelling Catheter Indwelling Catheter # Bowel Movements 1 ABP, PAP, CO, CI - Last Documented Arterial Blood Pressure 136/52 - Exam GENERAL EXAM: Lethargic, 78-year-old white female patient on on 4 L per minute nasal cannula HEAD: Normocephalic/atraumatic. EYES: Normal reaction of pupils, equal size. Conjunctiva pink, sclera white. NOSE: Clear with pink turbinates. THROAT: No erythema or exudates. NECK: No masses, no JVD, no thyroid enlargement, no adenopathy. CHEST: No chest wall deformity. Symmetrical expansion. LUNGS: Diffuse rhonchi throughout the lung huynh, and the patient has severe kyphoscoliosis of the thoracic spine. CVS: Regular rate and rhythm, normal S1 and S2, no gallops, harsh systolic murmur across the precordium ABDOMEN: Soft, nontender. No hepatosplenomegaly, normal bowel sounds, no guarding or rigidity. EXTREMITIES: No clubbing, no edema, no cyanosis, 2+ pulses and upper and lower extremities. MUSCULOSKELETAL: Muscle strength and tone normal. SPINE: No scoliosis or deformity SKIN: No rashes CENTRAL NERVOUS SYSTEM: Lethargic. More awake compared to yesterday. The patient is moving all 4 extremities. Simple commands and being also followed. PSYCHIATRIC: Unable to assess - Labs CBC & Chem 7: 06/21/18 04:12 06/21/18 04:12 Labs: Abnormal Lab Results - Last 24 Hours (Table) 06/20/18 06/20/18 06/21/18 Range/Units 17:31 20:21 02:27 RBC (3.80-5.40) m/uL Hgb (11.4-16.0) gm/dL Hct (34.0-46.0) % RDW (11.5-15.5) % Plt Count (150-450) k/uL Chloride (98-107) mmol/L Carbon Dioxide (22-30) mmol/L BUN (7-17) mg/dL Glucose (74-99) mg/dL POC Glucose (mg/dL) 112 H 136 H 118 H (75-99) mg/dL 06/21/18 06/21/18 06/21/18 Range/Units 04:12 04:12 11:33 RBC 2.65 L (3.80-5.40) m/uL Hgb 7.4 L (11.4-16.0) gm/dL Hct 23.1 L (34.0-46.0) % RDW 21.5 H (11.5-15.5) % Plt Count 56 L (150-450) k/uL Chloride 97 L (98-107) mmol/L Carbon Dioxide 37 H (22-30) mmol/L BUN 18 H (7-17) mg/dL Glucose 107 H (74-99) mg/dL POC Glucose (mg/dL) 108 H (75-99) mg/dL 06/21/18 Range/Units 16:47 RBC (3.80-5.40) m/uL Hgb (11.4-16.0) gm/dL Hct (34.0-46.0) % RDW (11.5-15.5) % Plt Count (150-450) k/uL Chloride (98-107) mmol/L Carbon Dioxide (22-30) mmol/L BUN (7-17) mg/dL Glucose (74-99) mg/dL POC Glucose (mg/dL) 103 H (75-99) mg/dL Assessment and Plan Plan: Assessment #1. Acute hypoxic respiratory failure with bilateral pulmonary infiltrates likely secondary to an aspiration pneumonia. She is currently on IV Merrem and vancomycin. Today's chest x-ray shows some interval improvement in aeration. There is evidence of small better pleural effusion and multiple consolidation. She is oxygenating better and she is weaned down to 4l oxygen nasal cannula. #2. Lactic acidosis improving with IV fluids. The follow-up lactic acid level is down to 1.4 #3. Hypothermia, recovered and the patient was provided external, and this has recovered and the patient is normothermic at this point in time. #4. Recent urinary tract infection, the patient has staphylococcal species in the urine and the blood cultures #5 Staphylococcal UTI with secondary sepsis and the patient is currently on IV Merrem and vancomycin. #6. Acute kidney injury [place] improving and the creatinine is down to 0.5 #7. Thrombocytopenia, improving #8. Hypoglycemia, recovered #9. Seizure disorder Depakote #10. developmental delay, Parkinson's disorder, schizoaffective disorder #11. Recent hospitalization one month ago for acute congestive heart failure and pneumonia at the [facility] #12. History of mitral valve prolapse, and possibly aortic stenosis #13. Gait dysfunction, patient requires 24-hour care with all ADLs including feeding #14. Hypertension, #15 hyperlipidemia #16 chronic anemia, stable with a hemoglobin of 7.4 Plan Continue IV Merrem and vancomycin. Continue IV Lasix. Keep you feeds for now. The patient not ready for oral feeding yet. Repeat chest x-ray in the morning. There is some improvement in the oxidation status on today's evaluation in addition to the improved aeration seen on today's chest x-ray. We 'll continue to follow. Long-term prognosis poor due to the above-mentioned comorbidities. We'll continue to follow.
[2018-06-21 20:02] LABS: Glucose,Whole Blood 110 mg/dL (75-99)
--- NOTE | 2018-06-21 23:35 | PN ---
PROGRESS NOTE DATE OF SERVICE: 06/21/2018 PRESENTING COMPLAINT: Shortness of breath. INTERVAL HISTORY: This patient remains in the ICU, admitted with acute UTI, sepsis, aspiration pneumonia, acute hypoxic respiratory failure, severe hypothermia, acute kidney injury and pancytopenia. Patient at baseline has developmental delay. Patient remains off Levophed. Patient had been hypoglycemic, for which she had been getting tube feedings. NG tube remains in place. Patient does wake up occasionally, arouses, but not enough to start feeding. Patient's oxygen requirement has come down to 4 L, though primarily remains lethargic. Patient has had 2 or 3 bowel movements today. REVIEW OF SYSTEMS: Review of systems was attempted. CURRENT MEDICATIONS: Reviewed. They include IV vancomycin and meropenem. PHYSICAL EXAMINATION: Temperature 97.8, pulse 83, respiration 24, blood pressure 134/104, pulse ox 94% on 5 L. GENERAL APPEARANCE: Lying in bed, lethargic, but a bit arousable. EYES: Pupils equal. Conjunctivae pale. NECK: JVD unable to assess. Mass not palpable. RESPIRATORY: Effort increased. Decreased breath sounds. CARDIOVASCULAR: First and second sounds normal. No edema. ABDOMEN: Soft, non-tender. Liver and spleen not palpable. PSYCHIATRY: Not really answering questions. NEUROLOGICAL: Pupils equal. No facial asymmetry. Does respond. ENT: NG tube in place. INVESTIGATIONS: Chest x-ray reported to improve a bit. White count 6.9, hemoglobin 7.4, platelets 56. Potassium 4.3, BUN 18, creatinine 0.55. Accu-Cheks are noted. ASSESSMENT: 1. Acute urinary tract infection from cystitis with sepsis on presentation. Cultures growing Staphylococcus simulans. 2. Severe sepsis, combination of urinary tract infection and possible aspiration pneumonia, bilateral, present on admission. 3. Acute hypoxic respiratory failure requiring Ventimask, currently further down to 4 L, slow to respond. 4. Acute lactic acidosis. 5. Severe hypokalemia, multifactorial, due to sepsis. 6. Acute kidney injury, probably acute tubular necrosis, with creatinine now corrected. 7. Pancytopenia/bicytopenia, probably secondary to sepsis. 8. Developmental delay. 9. Parkinson's disorder. 10.Schizoaffective disorder. 11.Chronic medical debility. 12.Essential hypertension, history of. 13.Hyperlipidemia. 14.Septic shock, status post being on pressors. 15.Blood cultures positive for Staphylococcus capitis ureolyticus. 16.CODE STATUS: FULL. PLAN: Continue with antibiotics. Patient is slowly responding. Continue to give NG tube feedings. Remains on IV antibiotics. Prognosis guarded. MMODL / IJN: [id number] /
[2018-06-22] MEDS: FUROSEMIDE 10 MG/ML 2 ML VIAL IV SCH ×4 (00:14→23:25)
[2018-06-22 00:25] LABS: Glucose,Whole Blood 115 mg/dL (75-99)
[2018-06-22 05:16] LABS: Anisocytosis Moderate; HCT 24.1 % (34.0-46.0); HGB 7.7 gm/dL (11.4-16.0); MCH 27.6 pg (25.0-35.0); MCHC 32.1 g/dL (31.0-37.0); MCV 86.1 fL (80.0-100.0); Mean Platelet Volume 8.7; Microcytosis Slight; RBC 2.79 m/uL (3.80-5.40); RDW 21.1 % (11.5-15.5); WBC 8.2 k/uL (3.8-10.6)
[2018-06-22 05:17] LABS: Platelet Count 73 k/uL (150-450)
[2018-06-22 05:25] LABS: Anion Gap 5 mmol/L; Blood Urea Nitrogen 21 mg/dL (7-17); Calcium 8.8 mg/dL (8.4-10.2); Chloride 93 mmol/L (98-107); Glucose 134 mg/dL (74-99); Magnesium 1.9 mg/dL (1.6-2.3); Phosphorus 4.6 mg/dL (2.5-4.5); Potassium 3.8 mmol/L (3.5-5.1); Sodium 138 mmol/L (137-145)
[2018-06-22 05:38] LABS: Carbon Dioxide 40 mmol/L (22-30)
[2018-06-22 06:04] LABS: Glucose,Whole Blood 117 mg/dL (75-99)
[2018-06-22] MEDS ORDERED: Magnesium Replacement Protocol 1 EACH MISC MISCELLANE PRN (06:27)
[2018-06-22] MEDS: MAGNESIUM SULFATE-D5W PMX 1 GM in DEXTROSE/WATER 1 100ML.BAG IVPB SCH ×2 (06:42→08:31)
[2018-06-22] MEDS ORDERED: POTASSIUM BICARBONATE/CIT AC 20 MEQ TABLET.EFF NG-TUBE SCH (07:00)
[2018-06-22] MEDS: BUDESONIDE 0.25 MG/2 ML NEBU INHALATION SCH ×2 (07:22→21:11)
[2018-06-22] MEDS: IPRATROPIUM-ALBUTEROL 3 ML NEB INHALATION SCH ×4 (07:23→21:11)
--- NOTE | 2018-06-22 07:57 | XR ---
EXAMINATION TYPE: XR chest 1V portable DATE OF EXAM: 06/22/2018 COMPARISON: 06/21/2018 INDICATION: Short of breath TECHNIQUE: Single frontal view of the chest is obtained. FINDINGS: The heart size is normal. The pulmonary vasculature is prominent. There is diffuse opacity through the bilateral lung huynh. The an oval overlies the lung apices limi ting their evaluation A nasogastric tube transverses the thorax the tip curled within the left upper quadrant of the abdome n. IMPRESSION: 1. Worsening bilateral lung opacifications can be compatible with infiltrates such as pulmonary edema and pleural effusions.
[2018-06-22] MEDS: PANTOPRAZOLE 40 MG/10 ML VIAL IVP SCH (08:32)
[2018-06-22] MEDS: LEVOTHYROXINE 125 MCG TAB PO SCH (08:34)
[2018-06-22] MEDS: ASPIRIN 81 MG PO SCH (08:34)
[2018-06-22] MEDS: VALPROIC ACID ORAL SOLN 250 MG/5 ML CUP NG-TUBE SCH ×3 (08:35→20:30)
[2018-06-22] MEDS: risperiDONE 1 MG TAB PO SCH ×2 (08:35→20:29)
[2018-06-22] MEDS: FERROUS SULFATE 325 MG TAB PO SCH (08:35)
[2018-06-22] MEDS: BENZTROPINE MESYLATE 0.5 MG TAB PO SCH ×2 (08:35→20:29)
[2018-06-22] MEDS: VANCOMYCIN 1,000 MG in SODIUM CHLORIDE 0.9% 250 ML IVPB SCH ×2 (08:36→20:28)
--- NOTE | 2018-06-22 10:02 | CT ---
EXAMINATION TYPE: CT chest wo con DATE OF EXAM: 06/22/2018 COMPARISON: None HISTORY: Hypoxic respiratory failure CT DLP: [address] of the chest was performed with lung and mediastinal window settings submitted. The la ck of contrast limits evaluation of the vascular, mediastinal and parenchymal structures including th e upper abdomen. LUNGS: Large bilateral pleural effusions with underlying compressive atelectasis and/or infiltrates. Underlying mass is not excluded. Groundglass infiltrates within the upper lobes reflecting additional inflammatory process or pneumonia. Calcification tracheobronchial tree. MEDIASTINUM/LYDIA: Thoracic aorta is of normal caliber with limited evaluation given lack of contrast . The heart is enlarged. No evidence for mediastinal mass. Multiple subcentimeter lymph nodes withi n the paratracheal and subcarinal regions. UPPER ABDOMEN: No significant abnormality is seen. OTHER: No significant other abnormality. IMPRESSION: 1. Large bilateral pleural effusions with underlying compressive atelectasis and/or infiltrates. Und erlying mass is not excluded. Groundglass infiltrates within the upper lobes reflecting additional in flammatory process or pneumonia.
[2018-06-22] MEDS: MEROPENEM 1 GM in SODIUM CHLORIDE 0.9% 100 ML IVPB SCH ×2 (10:42→20:28)
[2018-06-22 11:51] LABS: Glucose,Whole Blood 116 mg/dL (75-99)
--- NOTE | 2018-06-22 14:00 | P.PN ---
Subjective Progress Note Date: 06/22/18 On 06/22/2018 I'm seeing this patient for a follow-up. She is awake and she is following commands and answering questions. She seems to be much more alert compared to yesterday. Chest x-ray still showing opacification of the mid and lower lung huynh bilaterally. Based on that, I performed a CAT scan of the chest that showed atelectatic changes and consolidation of the lung bases bilaterally in addition to small bilateral pleural effusion left more than right. The upper lung huynh were essentially well aerated. The patient this morning is still receiving enteral feeding for nutritional support through an NG tube. No abdominal distention. No nausea vomiting. She is having adequate amount of urine output. She has a congested cough that she is unable to bring up any sputum. Her antibiotic coverage including a combination of vancomycin and meropenem. No pleurisy. No hemoptysis. CAT scan of the chest was noted. We will opt for diuretic therapy rather thoracentesis going to the pleural effusions are small. The patient is currently on IV Lasix and she has developed some degree of metabolic alkalosis yet, for the most part she is producing good amount of urine output and renal function is still holding. No seizure activity. No agitation. Hemoglobin stable at 7.7. No significant leukocytosis. Objective - Vital Signs Vital signs: Vital Signs Temp 97 F L 06/22/18 12:00 Pulse 85 06/22/18 13:00 Resp 13 06/22/18 13:00 BP 147/101 06/22/18 13:00 Pulse Ox 92 L 06/22/18 13:00 Intake & Output 06/21/18 06/22/18 06/22/18 18:59 06:59 18:59 Intake Total 1230 1350 968 Output Total 1685 1420 1645 Balance -455 -70 -677 Weight 58.4 kg Intake: IV 240 260 138 0.9 NACL 240 260 120 pressure bag 18 Intake, IV Titration 350 450 450 Amount Magnesium Sulfate-D5w Pmx 100 100 1 gm In Dextrose/Water 1 100ml.bag @ 100 mls/hr IVPB Q1H [facility] Rx#: [id number] Meropenem 1 gm In Sodium 100 100 100 Chloride 0.9% 100 ml @ 200 mls/hr IVPB Q12HR [facility] Rx#:[id number] Vancomycin 1,000 mg In 250 250 250 Sodium Chloride 0.9% 250 ml @ 125 mls/hr IVPB Q12HR [facility] Rx#:[id number] Tube Feeding 520 640 320 Other 120 60 Output: Urine 1685 1420 1645 Other: Voiding Method Indwelling Catheter Indwelling Catheter Indwelling Catheter # Bowel Movements 1 1 ABP, PAP, CO, CI - Last Documented Arterial Blood Pressure 110/50 - Exam GENERAL EXAM: Lethargic, 78-year-old white female patient on on 4 L per minute nasal cannula HEAD: Normocephalic/atraumatic. EYES: Normal reaction of pupils, equal size. Conjunctiva pink, sclera white. NOSE: Clear with pink turbinates. THROAT: No erythema or exudates. NECK: No masses, no JVD, no thyroid enlargement, no adenopathy. CHEST: No chest wall deformity. Symmetrical expansion. LUNGS: Diffuse rhonchi throughout the lung huynh, and the patient has severe kyphoscoliosis of the thoracic spine. CVS: Regular rate and rhythm, normal S1 and S2, no gallops, harsh systolic murmur across the precordium ABDOMEN: Soft, nontender. No hepatosplenomegaly, normal bowel sounds, no guarding or rigidity. EXTREMITIES: No clubbing, no edema, no cyanosis, 2+ pulses and upper and lower extremities. MUSCULOSKELETAL: Muscle strength and tone normal. SPINE: No scoliosis or deformity SKIN: No rashes CENTRAL NERVOUS SYSTEM: Lethargic. More awake compared to yesterday. The patient is moving all 4 extremities. Simple commands and being also followed. PSYCHIATRIC: Unable to assess - Labs CBC & Chem 7: 06/22/18 04:55 06/22/18 04:55 Labs: Abnormal Lab Results - Last 24 Hours (Table) 06/21/18 06/21/18 06/22/18 Range/Units 16:47 19:50 00:13 RBC (3.80-5.40) m/uL Hgb (11.4-16.0) gm/dL Hct (34.0-46.0) % RDW (11.5-15.5) % Plt Count (150-450) k/uL Chloride (98-107) mmol/L Carbon Dioxide (22-30) mmol/L BUN (7-17) mg/dL Glucose (74-99) mg/dL POC Glucose (mg/dL) 103 H 110 H 115 H (75-99) mg/dL Phosphorus (2.5-4.5) mg/dL 06/22/18 06/22/18 06/22/18 Range/Units 04:55 04:55 05:52 RBC 2.79 L (3.80-5.40) m/uL Hgb 7.7 L (11.4-16.0) gm/dL Hct 24.1 L (34.0-46.0) % RDW 21.1 H (11.5-15.5) % Plt Count 73 L (150-450) k/uL Chloride 93 L (98-107) mmol/L Carbon Dioxide 40 H (22-30) mmol/L BUN 21 H (7-17) mg/dL Glucose 134 H (74-99) mg/dL POC Glucose (mg/dL) 117 H (75-99) mg/dL Phosphorus 4.6 H (2.5-4.5) mg/dL 06/22/18 Range/Units 11:38 RBC (3.80-5.40) m/uL Hgb (11.4-16.0) gm/dL Hct (34.0-46.0) % RDW (11.5-15.5) % Plt Count (150-450) k/uL Chloride (98-107) mmol/L Carbon Dioxide (22-30) mmol/L BUN (7-17) mg/dL Glucose (74-99) mg/dL POC Glucose (mg/dL) 116 H (75-99) mg/dL Phosphorus (2.5-4.5) mg/dL Assessment and Plan Plan: Assessment #1. Acute hypoxic respiratory failure with bilateral pulmonary infiltrates likely secondary to an aspiration pneumonia. The CAT scan of the chest was reviewed and there is small bilateral pleural effusion left more than right. There are also atelectatic changes/consolidation of the lung bases bilaterally. Upper lobes are relatively spared. The patient has a congested cough and she is unable to bring up much sputum. We're performing aggressive pulmonary toileting, chest PT, incentive spirometer and antibiotic therapy as the patient on a combination of meropenem and vancomycin. The patient is also being diuresis. In my opinion, the pleural effusion is abnormal for thoracentesis on the left yet the amount of fluid itself is smaller the patient may not see the benefit that'll make a significant change and the risk-benefit ratio favors not doing the procedure this point in time. #2. Lactic acidosis, recovered #3. Hypothermia, recovered #4. Recent urinary tract infection, the patient has staphylococcal species in the urine and the blood cultures #5 Staphylococcal UTI with secondary sepsis and the patient is currently on IV Merrem and vancomycin. #6. Acute kidney injury [place] improving and the creatinine is down to 0.5 #7. Thrombocytopenia, improving #8. Hypoglycemia, recovered #9. Seizure disorder Depakote #10. developmental delay, Parkinson's disorder, schizoaffective disorder #11. Recent hospitalization one month ago for acute congestive heart failure and pneumonia at the [facility] #12. History of mitral valve prolapse, and possibly aortic stenosis #13. Gait dysfunction, patient requires 24-hour care with all ADLs including feeding #14. Hypertension, #15 hyperlipidemia #16 chronic anemia, stable with a hemoglobin of 7.7 Plan Continue IV Merrem and vancomycin. Continue IV Lasix. Keep you feeds for now. Perform a swallow evaluation. Do not see the need for thoracentesis at this point in time. CAT scan of the chest was noted. Contrary to the radiologist's report, the pleural effusion are small and would not do any thoracentesis at this point in time due to increased risk of complications from the procedure. We'll continue to follow. Case was discussed with the caregiver. Much more alert and awake compared to yesterday. Aspiration precautions. Continue enteral feeding for nutritional support. continue to follow.
[2018-06-22] MEDS: FERROUS SULFATE ORAL ELIXIR 300 MG/5 ML CUP PO SCH (16:56)
[2018-06-22] MEDS: ATORVASTATIN 10 MG TAB PO SCH (16:58)
[2018-06-22 18:42] LABS: Glucose,Whole Blood 112 mg/dL (75-99)
--- NOTE | 2018-06-22 22:48 | PN ---
PROGRESS NOTE DATE OF SERVICE: 06/22/2018 PRESENTING COMPLAINT: Short of breath. INTERVAL HISTORY: Patient remains in the ICU, admitted with acute UTI, sepsis, aspiration pneumonia, acute hypoxic respiratory failure, severe hypothermia, acute kidney injury, pancytopenia. Patient has at baseline mental delay. Patient remains on 5 L of oxygen. Still somewhat lethargic. Not felt safe to be fed. NG tube feeding continues. CT scan was done that showed some pleural effusion, seen by Dr. Lilly from Pulmonary; felt not to be large enough to be tapped at this point. REVIEW OF SYSTEMS: Cannot be done, as patient is lethargic. CURRENT MEDICATIONS: Reviewed. They include IV meropenem and IV vancomycin. PHYSICAL EXAMINATION: Temperature 97.8, pulse 74, respiration 21, blood pressure 136/50, pulse ox 97% on 5 L. GENERAL APPEARANCE: Propped up in bed, lethargic but arousable. EYES: Pupils equal. Conjunctivae pale. NECK: JVD unable to assess. Mass not palpable. RESPIRATORY: Effort decreased. LUNGS: Decreased breath sounds. CARDIOVASCULAR: First and second sounds normal. No edema. ABDOMEN: Soft, non-tender. Liver and spleen not palpable. PSYCHIATRY: Not able to assess. NEUROLOGICAL: Pupils equal. No facial asymmetry. ENT: NG tube in place. INVESTIGATIONS: White count 8.2, hemoglobin 7.7, platelets 73. Potassium 3.8, BUN 21, creatinine 0.56. Accu-Cheks are noted. ASSESSMENT: 1. Acute urinary tract infection from cystitis with sepsis on presentation; cultures growing Staphylococcus simulans. 2. Severe sepsis, combination of urinary tract infection and possible aspiration pneumonia, bilateral, present on admission. 3. Acute hypoxic respiratory failure requiring Ventimask, currently hovering around 4 to 5 liters of fluid. 4. Acute lactic acidosis. 5. Severe hypokalemia, multifactorial, due to sepsis. 6. Acute kidney injury, probably acute tubular necrosis, now corrected. 7. Pancytopenia/bicytopenia, probably secondary to sepsis. 8. Developmental delay. 9. Parkinson's disorder. 10.Schizoaffective disorder. 11.Chronic medical debility. 12.Essential hypertension, history of. 13.Hyperlipidemia. 14.Septic shock, status post being on pressors. 15.Blood cultures positive for Staphylococcus capitis ureolyticus. 16.CODE STATUS: FULL CODE. 17.Acute metabolic encephalopathy, multifactorial. PLAN: Patient still remains rather lethargic, felt not safe for oral feeding. NG tube remains in place. Antibiotics are to continue. Prognosis remains guarded. MMODL / IJN: [id number] /
[2018-06-22 23:42] LABS: Glucose,Whole Blood 112 mg/dL (75-99)
[2018-06-23] LABS: Glucose,Whole Blood 112 mg/dL (75-99)
[2018-06-23 05:25] LABS: Anisocytosis Moderate; HCT 24.2 % (34.0-46.0); HGB 7.4 gm/dL (11.4-16.0); Hypochromasia Slight; MCH 27.1 pg (25.0-35.0); MCHC 30.7 g/dL (31.0-37.0); MCV 88.4 fL (80.0-100.0); Mean Platelet Volume 8.4; RBC 2.73 m/uL (3.80-5.40); RDW 20.7 % (11.5-15.5)
[2018-06-23 05:33] LABS: Anion Gap 3 mmol/L; Blood Urea Nitrogen 22 mg/dL (7-17); Calcium 8.8 mg/dL (8.4-10.2); Carbon Dioxide 37 mmol/L (22-30); Chloride 96 mmol/L (98-107); Glucose 122 mg/dL (74-99); Magnesium 2.2 mg/dL (1.6-2.3); Phosphorus 4.8 mg/dL (2.5-4.5); Potassium 3.9 mmol/L (3.5-5.1); Sodium 136 mmol/L (137-145)
[2018-06-23 05:44] LABS: Glucose,Whole Blood 121 mg/dL (75-99)
[2018-06-23 05:45] LABS: Platelet Count 88 k/uL (150-450)
--- NOTE | 2018-06-23 06:13 | XR ---
EXAMINATION TYPE: XR chest 1V portable DATE OF EXAM: 06/23/2018 HISTORY: shortness of breath. REFERENCE: Previous study dated 06/22/2018. FINDINGS: Unfortunately, the patient's head projects over the right upper chest. There is bibasilar airspace disease. There are bilateral effusions, worse on the left than the right. Heart size is obscured. IMPRESSION: 1. CONTINUING BIBASILAR INFILTRATES. 2. BILATERAL EFFUSIONS, GREATER ON THE LEFT THAN THE RIGHT.
[2018-06-23] MEDS: FERROUS SULFATE ORAL ELIXIR 300 MG/5 ML CUP PO SCH ×3 (07:42→18:23)
[2018-06-23] MEDS: FUROSEMIDE 10 MG/ML 2 ML VIAL IV SCH ×2 (07:50→16:09)
[2018-06-23] MEDS: LEVOTHYROXINE 125 MCG TAB PO SCH (07:51)
[2018-06-23] MEDS: IPRATROPIUM-ALBUTEROL 3 ML NEB INHALATION SCH ×4 (07:57→20:11)
[2018-06-23] MEDS: BUDESONIDE 0.25 MG/2 ML NEBU INHALATION SCH ×2 (07:57→20:12)
[2018-06-23] MEDS ORDERED: VANCOMYCIN TROUGH DUE 1 EACH MISC MISCELLANE ONE (08:00)
[2018-06-23] MEDS: MEROPENEM 1 GM in SODIUM CHLORIDE 0.9% 100 ML IVPB SCH ×2 (09:19→16:09)
[2018-06-23] MEDS: ASPIRIN 81 MG PO SCH (09:19)
[2018-06-23] MEDS: VANCOMYCIN 1,000 MG in SODIUM CHLORIDE 0.9% 250 ML IVPB SCH (09:19)
[2018-06-23] MEDS: PANTOPRAZOLE 40 MG/10 ML VIAL IVP SCH (09:19)
[2018-06-23] MEDS: BENZTROPINE MESYLATE 0.5 MG TAB PO SCH ×2 (09:20→20:21)
[2018-06-23] MEDS: risperiDONE 1 MG TAB PO SCH ×2 (09:21→20:21)
[2018-06-23] MEDS: VALPROIC ACID ORAL SOLN 250 MG/5 ML CUP NG-TUBE SCH ×3 (09:22→20:21)
[2018-06-23 11:48] LABS: Glucose,Whole Blood 106 mg/dL (75-99)
--- NOTE | 2018-06-23 13:24 | P.PN ---
Subjective Progress Note Date: 06/23/18 Objective - Vital Signs Vital signs: Vital Signs Temp 96.6 F L 06/23/18 12:00 Pulse 82 06/23/18 12:00 Resp 20 06/23/18 12:00 BP 113/59 06/23/18 12:00 Pulse Ox 98 06/23/18 12:00 Intake & Output 06/22/18 06/23/18 06/23/18 18:59 06:59 18:59 Intake Total 1353 1329 695 Output Total 2400 1650 900 Balance -1047 -321 -205 Weight 60.8 kg 60.8 kg Intake: IV 253 649 465 0.9 NACL 220 260 100 Meropenem 1 gm In Sodium 100 Chloride 0.9% 100 ml @ 200 mls/hr IVPB Q12HR [facility] Rx#:[id number] Meropenem 1 gm In Sodium 100 Chloride 0.9% 100 ml @ 200 mls/hr IVPB Q8HR [facility] Rx#:[id number] Vancomycin 1,000 mg In 250 250 Sodium Chloride 0.9% 250 ml @ 125 mls/hr IVPB Q12HR [facility] Rx#:[id number] pressure bag 33 39 15 Intake, IV Titration 450 Amount Magnesium Sulfate-D5w Pmx 100 1 gm In Dextrose/Water 1 100ml.bag @ 100 mls/hr IVPB Q1H [facility] Rx#: [id number] Meropenem 1 gm In Sodium 100 Chloride 0.9% 100 ml @ 200 mls/hr IVPB Q12HR [facility] Rx#:[id number] Vancomycin 1,000 mg In 250 Sodium Chloride 0.9% 250 ml @ 125 mls/hr IVPB Q12HR [facility] Rx#:[id number] Tube Feeding 560 680 200 Other 90 30 Output: Urine 2400 1650 900 Other: Voiding Method Indwelling Catheter Indwelling Catheter Indwelling Catheter # Bowel Movements 1 1 ABP, PAP, CO, CI - Last Documented Arterial Blood Pressure 142/54 - Exam GENERAL EXAM: More awake today. 78-year-old white female patient on on 5 L per minute nasal cannula HEAD: Normocephalic/atraumatic. EYES: Normal reaction of pupils, equal size. Conjunctiva pink, sclera white. NOSE: Clear with pink turbinates. THROAT: No erythema or exudates. NECK: No masses, no JVD, no thyroid enlargement, no adenopathy. CHEST: No chest wall deformity. Symmetrical expansion. LUNGS: Diffuse rhonchi throughout the lung huynh, left greater than right and the patient has severe kyphoscoliosis of the thoracic spine. CVS: Regular rate and rhythm, normal S1 and S2, no gallops, harsh systolic murmur across the precordium ABDOMEN: Soft, nontender. No hepatosplenomegaly, normal bowel sounds, no guarding or rigidity. EXTREMITIES: No clubbing, no edema, no cyanosis, 2+ pulses and upper and lower extremities. MUSCULOSKELETAL: Muscle strength and tone normal. SPINE: No scoliosis or deformity SKIN: No rashes CENTRAL NERVOUS SYSTEM: More awake compared to yesterday. The patient is moving all 4 extremities. Simple commands and being also followed. PSYCHIATRIC: Unable to assess - Labs CBC & Chem 7: 06/23/18 04:50 06/23/18 04:50 Labs: Abnormal Lab Results - Last 24 Hours (Table) 06/22/18 06/22/18 06/22/18 Range/Units 18:30 23:30 23:48 RBC (3.80-5.40) m/uL Hgb (11.4-16.0) gm/dL Hct (34.0-46.0) % MCHC (31.0-37.0) g/dL RDW (11.5-15.5) % Plt Count (150-450) k/uL Sodium (137-145) mmol/L Chloride (98-107) mmol/L Carbon Dioxide (22-30) mmol/L BUN (7-17) mg/dL Glucose (74-99) mg/dL POC Glucose (mg/dL) 112 H 112 H 112 H (75-99) mg/dL Phosphorus (2.5-4.5) mg/dL 06/23/18 06/23/18 06/23/18 Range/Units 04:50 04:50 05:33 RBC 2.73 L (3.80-5.40) m/uL Hgb 7.4 L (11.4-16.0) gm/dL Hct 24.2 L (34.0-46.0) % MCHC 30.7 L (31.0-37.0) g/dL RDW 20.7 H (11.5-15.5) % Plt Count 88 L (150-450) k/uL Sodium 136 L (137-145) mmol/L Chloride 96 L (98-107) mmol/L Carbon Dioxide 37 H (22-30) mmol/L BUN 22 H (7-17) mg/dL Glucose 122 H (74-99) mg/dL POC Glucose (mg/dL) 121 H (75-99) mg/dL Phosphorus 4.8 H (2.5-4.5) mg/dL 06/23/18 Range/Units 11:37 RBC (3.80-5.40) m/uL Hgb (11.4-16.0) gm/dL Hct (34.0-46.0) % MCHC (31.0-37.0) g/dL RDW (11.5-15.5) % Plt Count (150-450) k/uL Sodium (137-145) mmol/L Chloride (98-107) mmol/L Carbon Dioxide (22-30) mmol/L BUN (7-17) mg/dL Glucose (74-99) mg/dL POC Glucose (mg/dL) 106 H (75-99) mg/dL Phosphorus (2.5-4.5) mg/dL Assessment and Plan Assessment: Assessment #1. Acute hypoxic respiratory failure with bilateral pulmonary infiltrates likely secondary to an aspiration pneumonia. The CAT scan of the chest was reviewed and there is small bilateral pleural effusion left more than right. There are also atelectatic changes/consolidation of the lung bases bilaterally. Upper lobes are relatively spared. The patient has a congested cough and she is unable to bring up much sputum. We're performing aggressive pulmonary toileting, chest PT, incentive spirometer and antibiotic therapy as the patient on a combination of meropenem and vancomycin. The patient is also being diuresis. In my opinion, the pleural effusion is abnormal for thoracentesis on the left yet the amount of fluid itself is smaller the patient may not see the benefit that'll make a significant change and the risk-benefit ratio favors not doing the procedure this point in time. #2. Lactic acidosis, recovered #3. Hypothermia, recovered #4. Recent urinary tract infection, the patient has staphylococcal simulans in the urine and staph capitis SS ureolyticus is blood cultures #5 Staphylococcal UTI with secondary sepsis and the patient is currently on IV Merrem and vancomycin. #6. Acute kidney injury [place] improving and the creatinine is down to 0.58 #7. Thrombocytopenia, improving #8. Hypoglycemia, recovered #9. Seizure disorder Depakote #10. developmental delay, Parkinson's disorder, schizoaffective disorder #11. Recent hospitalization one month ago for acute congestive heart failure and pneumonia at the [facility] #12. History of mitral valve prolapse, and possibly aortic stenosis #13. Gait dysfunction, patient requires 24-hour care with all ADLs including feeding #14. Hypertension, #15 hyperlipidemia #16 chronic anemia, stable with a hemoglobin of 7.4 Plan: The patient was seen and evaluated by Dr. Lilly. Chest x-ray and labs were reviewed. Continues with bilateral pleural effusions left greater than right. May consider a thoracentesis however the patient is quite frail and kyphotic. She is maintaining good O2 saturations on 5 L nasal cannula. She remains on IV Lasix 20 mg every 8 hours. Continue vancomycin and meropenem, bronchodilators. Continue chest physiotherapy. Will continue to follow make further recommendations based on her clinical status. I, the cosigning physician, performed a history & physical examination of the patient. Lungs sounds with bilateral crackles left greater than right. Maintaining good O2 saturations in the 90s on 5 L/m per nasal cannula. I discussed the assessment and plan of care with my nurse practitioner, Rica Thomas. I attest to the above note as dictated by her.
[2018-06-23] MEDS: ATORVASTATIN 10 MG TAB PO SCH (16:09)
[2018-06-23 18:08] LABS: Glucose,Whole Blood 117 mg/dL (75-99)
[2018-06-24] MEDS: FUROSEMIDE 10 MG/ML 2 ML VIAL IV SCH ×4 (00:16→23:54)
[2018-06-24] MEDS: MEROPENEM 1 GM in SODIUM CHLORIDE 0.9% 100 ML IVPB SCH ×4 (00:17→23:53)
[2018-06-24] MEDS: VANCOMYCIN 750 MG in SODIUM CHLORIDE 0.9% 250 ML IVPB SCH ×2 (00:17→11:50)
[2018-06-24 00:21] LABS: Glucose,Whole Blood 101 mg/dL (75-99)
[2018-06-24 06:32] LABS: Anisocytosis Moderate; HCT 24.1 % (34.0-46.0); HGB 7.9 gm/dL (11.4-16.0); Hypochromasia Slight; MCH 28.8 pg (25.0-35.0); MCHC 32.8 g/dL (31.0-37.0); MCV 87.7 fL (80.0-100.0); Mean Platelet Volume 7.6; Platelet Count 147 k/uL (150-450); RBC 2.74 m/uL (3.80-5.40); RDW 20.7 % (11.5-15.5); WBC 9.4 k/uL (3.8-10.6)
[2018-06-24 06:32] LABS: Glucose,Whole Blood 97 mg/dL (75-99)
[2018-06-24 06:38] LABS: Anion Gap 3 mmol/L; Blood Urea Nitrogen 28 mg/dL (7-17); Calcium 8.8 mg/dL (8.4-10.2); Carbon Dioxide 36 mmol/L (22-30); Chloride 98 mmol/L (98-107); Glucose 97 mg/dL (74-99); Phosphorus 3.6 mg/dL (2.5-4.5); Potassium 4.4 mmol/L (3.5-5.1); Sodium 137 mmol/L (137-145)
--- NOTE | 2018-06-24 07:06 | XR ---
EXAMINATION TYPE: XR chest 1V portable DATE OF EXAM: 06/24/2018 HISTORY: shortness of breath. REFERENCE: Previous study dated 06/23/2018. FINDINGS: There continue to be bilateral effusions, greater on the left than the right. Heart size is obscured. There is mild vascular congestion. There is an NG tube in place with its tip in the stomac h. IMPRESSION: CONTINUING BILATERAL EFFUSIONS WITH CONCOMITANT ATELECTASIS, GREATER ON THE LEFT THAN THE RIGHT.
--- NOTE | 2018-06-24 07:41 | PN ---
PROGRESS NOTE DATE OF SERVICE: 06/23/2018 PRESENTING COMPLAINT: Lethargic. INTERVAL HISTORY: This patient remains in the ICU, admitted with acute UTI, sepsis, aspiration pneumonia, acute hypoxic respiratory failure, severe hypothermia, acute kidney injury, pancytopenia. Patient has mental delay. Patient remains on 5 L of oxygen, rather lethargic, not felt to be safe for oral feeding. NG tube remains in place. Remains on 5 L oxygen. REVIEW OF SYSTEMS: Cannot be done, patient lethargic. CURRENT MEDICATIONS: Reviewed that include DuoNeb, IV meropenem, IV vancomycin. PHYSICAL EXAMINATION: Temperature 98.6, pulse 79, respiration 21, blood pressure 100/49, pulse ox 96% on 3 L. GENERAL APPEARANCE: Lying in bed, lethargic, barely arousable. EYES: Pupil equal. Conjunctivae pale. NECK: JVD unable to assess. Mass not palpable. Respiratory effort increased LUNGS: Decreased breath sounds. CARDIOVASCULAR: 1st and 2nd sounds normal. No edema. ABDOMEN: Soft, nontender. Liver and spleen not palpable. ENT: NG tube in place. PSYCHIATRY: Unable to assess. NEUROLOGICAL: Pupils are equal. INVESTIGATIONS: White count 9, hemoglobin 7.4, platelets 88. Potassium 3.9, BUN 22, creatinine 0.58. ASSESSMENT: 1. Acute urinary tract infection from cystitis with sepsis on presentation. Cultures growing Staphylococcus Simulans. 2. Severe sepsis, combination of urinary tract infection and possible aspiration pneumonia, bilateral, present on admission. 3. Acute hypoxic respiratory failure requiring Ventimask, currently hovering around 5 L, when I saw the patient in the evening down to 3 L of oxygen. 4. Acute lactic acidosis. 5. Severe hypokalemia, multifactorial, due to sepsis. 6. Acute kidney injury, probably acute tubular necrosis, now corrected. 7. Pancytopenia/bicytopenia, probably secondary to sepsis. 8. Developmental delay. 9. Parkinson disorder. 10.Schizoaffective disorder. 11.Chronic medical debility. 12.Essential hypertension, history of. 13.Hyperlipidemia. 14.Septic shock status post being on pressors. 15.Blood cultures positive for Staphylococcus capitis ureolyticus. 16.CODE STATUS: FULL CODE. 17.Acute metabolic encephalopathy, multifactorial. PLAN: Patient remains rather ill. Remains slow to respond. Oxygen requirement has come down to 3 L. Antibiotics to continue. The patient is too lethargic to be fed. MMODL / IJN: [id number] /
[2018-06-24] MEDS: BUDESONIDE 0.25 MG/2 ML NEBU INHALATION SCH ×2 (07:54→19:44)
[2018-06-24] MEDS: IPRATROPIUM-ALBUTEROL 3 ML NEB INHALATION SCH ×4 (07:54→19:45)
[2018-06-24] MEDS: LEVOTHYROXINE 125 MCG TAB PO SCH (09:22)
[2018-06-24] MEDS: risperiDONE 1 MG TAB PO SCH ×2 (09:22→21:23)
[2018-06-24] MEDS: FERROUS SULFATE ORAL ELIXIR 300 MG/5 ML CUP PO SCH ×2 (09:22→16:45)
[2018-06-24] MEDS: PANTOPRAZOLE 40 MG/10 ML VIAL IVP SCH (09:22)
[2018-06-24] MEDS: BENZTROPINE MESYLATE 0.5 MG TAB PO SCH ×2 (09:23→21:23)
[2018-06-24] MEDS: VALPROIC ACID ORAL SOLN 250 MG/5 ML CUP NG-TUBE SCH ×3 (09:23→21:23)
[2018-06-24] MEDS: ASPIRIN 81 MG PO SCH (09:23)
--- NOTE | 2018-06-24 11:38 | P.PN ---
Subjective Progress Note Date: 06/24/18 On 06/24/2018, the patient is doing well. His communicating. No respiratory distress. She failed her swallow evaluation and this will be repeated tomorrow and the patient is pleasant NG tube in place for nutritional support. She is tolerating the tube feeds. No nausea. No vomiting. No diarrhea. No abdominal pain. No abdominal distention. No headaches. Her chest x-ray from today shows continuing better pleural effusion which are essentially small yet left is more than right. There is mild four-vessel congestion. Is also an NG tube in place. The hemoglobin stable at 7.9. No significant leukocytosis. Platelets are improving. The patient remains on a combination of Merrem and vancomycin. The patient also on IV Lasix 20 mg every 8 hours. The fluid balance remains negative and the patient has lost few pounds over the past several days. The swallow evaluation is to be repeated. The patient failed a swallow evaluation. She is still receiving enteral feeding for nutritional support via an NG tube. Objective - Vital Signs Vital signs: Vital Signs Temp 99.1 F 06/24/18 08:00 Pulse 90 06/24/18 11:24 Resp 27 H 06/24/18 10:00 BP 97/64 06/24/18 10:00 Pulse Ox 95 06/24/18 10:00 Intake & Output 06/23/18 06/24/18 06/24/18 18:59 06:59 18:59 Intake Total 1193 556 30 Output Total 1665 870 Balance -472 -314 30 Weight 60.8 kg 59.4 kg Intake: IV 703 396 0.9 NACL 220 40 Meropenem 1 gm In Sodium 200 100 Chloride 0.9% 100 ml @ 200 mls/hr IVPB Q12HR DEANNA Rx#:[id number] Vancomycin 1,000 mg In 250 250 Sodium Chloride 0.9% 250 ml @ 125 mls/hr IVPB Q12HR DEANNA Rx#:[id number] pressure bag 33 6 Tube Feeding 400 160 30 Other 90 Output: Urine 1665 870 Other: Voiding Method Indwelling Catheter Indwelling Catheter Indwelling Catheter ABP, PAP, CO, CI - Last Documented Arterial Blood Pressure 122/45 - Exam GENERAL EXAM: Lethargic, 78-year-old white female patient on on 4 L per minute nasal cannula HEAD: Normocephalic/atraumatic. EYES: Normal reaction of pupils, equal size. Conjunctiva pink, sclera white. NOSE: Clear with pink turbinates. THROAT: No erythema or exudates. NECK: No masses, no JVD, no thyroid enlargement, no adenopathy. CHEST: No chest wall deformity. Symmetrical expansion. LUNGS: Diffuse rhonchi throughout the lung huynh, and the patient has severe kyphoscoliosis of the thoracic spine. CVS: Regular rate and rhythm, normal S1 and S2, no gallops, harsh systolic murmur across the precordium ABDOMEN: Soft, nontender. No hepatosplenomegaly, normal bowel sounds, no guarding or rigidity. EXTREMITIES: No clubbing, no edema, no cyanosis, 2+ pulses and upper and lower extremities. MUSCULOSKELETAL: Muscle strength and tone normal. SPINE: No scoliosis or deformity SKIN: No rashes CENTRAL NERVOUS SYSTEM: Lethargic. More awake compared to yesterday. The patient is moving all 4 extremities. Simple commands and being also followed. PSYCHIATRIC: Unable to assess - Labs CBC & Chem 7: 06/24/18 06:15 06/24/18 06:15 Labs: Abnormal Lab Results - Last 24 Hours (Table) 06/23/18 06/23/18 06/24/18 Range/Units 11:37 17:57 00:09 RBC (3.80-5.40) m/uL Hgb (11.4-16.0) gm/dL Hct (34.0-46.0) % RDW (11.5-15.5) % Plt Count (150-450) k/uL Carbon Dioxide (22-30) mmol/L BUN (7-17) mg/dL POC Glucose (mg/dL) 106 H 117 H 101 H (75-99) mg/dL 06/24/18 06/24/18 Range/Units 06:15 06:15 RBC 2.74 L (3.80-5.40) m/uL Hgb 7.9 L (11.4-16.0) gm/dL Hct 24.1 L (34.0-46.0) % RDW 20.7 H (11.5-15.5) % Plt Count 147 L D (150-450) k/uL Carbon Dioxide 36 H (22-30) mmol/L BUN 28 H (7-17) mg/dL POC Glucose (mg/dL) (75-99) mg/dL Assessment and Plan Plan: Assessment #1. Acute hypoxic respiratory failure with bilateral pulmonary infiltrates likely secondary to an aspiration pneumonia. The CAT scan of the chest was reviewed and there is small bilateral pleural effusion left more than right. There are also atelectatic changes/consolidation of the lung bases bilaterally. Upper lobes are relatively spared. The patient has a congested cough and she is unable to bring up much sputum. We're performing aggressive pulmonary toileting, chest PT, incentive spirometer and antibiotic therapy as the patient on a combination of meropenem and vancomycin. The patient is also being diuresis. Overall condition is gradually improving. The patient is currently on 3 L of oxygen by nasal cannula. We'll attempt to wean off FiO2 as tolerated. Her cough remains weak. Continue same antibiotic coverage. Continue diuresis. Avoid thoracentesis of this point in time. #2. Lactic acidosis, recovered #3. Hypothermia, recovered #4. Recent urinary tract infection, the patient has staphylococcal species in the urine and the blood cultures #5 Staphylococcal UTI with secondary sepsis and the patient is currently on IV Merrem and vancomycin. #6. Acute kidney injury NH improving and the creatinine is down to 0.6 #7. Thrombocytopenia, improving #8. Hypoglycemia, recovered #9. Seizure disorder Depakote #10. developmental delay, Parkinson's disorder, schizoaffective disorder #11. Recent hospitalization one month ago for acute congestive heart failure and pneumonia at the [facility] #12. History of mitral valve prolapse, and possibly aortic stenosis #13. Gait dysfunction, patient requires 24-hour care with all ADLs including feeding #14. Hypertension, #15 hyperlipidemia #16 chronic anemia, stable with a hemoglobin of 7.9 Plan Continue IV Merrem and vancomycin. Continue IV Lasix. Keep you feeds for now. Perform a swallow evaluation in a.m. and assess the patient's ability to swallow appropriately. We'll continue to follow. Long-term prognosis poor baseline above-mentioned comorbidities.
[2018-06-24 12:05] LABS: Glucose,Whole Blood 97 mg/dL (75-99)
[2018-06-24] MEDS: ATORVASTATIN 10 MG TAB PO SCH (16:45)
[2018-06-24 19:12] LABS: Glucose,Whole Blood 111 mg/dL (75-99)
--- NOTE | 2018-06-24 23:19 | PN ---
PROGRESS NOTE DATE OF SERVICE: 06/24/2018. PRESENTING COMPLAINT: Lethargic. INTERVAL HISTORY: Patient remains in the ICU, admitted with acute UTI, sepsis, aspiration pneumonia, acute hypoxic respiratory failure, severe hypothermia, acute kidney injury, pancytopenia. The patient has a baseline mental delay. The patient is on about 4 L of oxygen. More awake today, just wakes up and says gerard. Pending swallow evaluation. NG tube remains in place. REVIEW OF SYSTEMS: Cannot be done as patient is lethargic. CURRENT MEDICATIONS: Reviewed that include IV meropenem and IV vancomycin. PHYSICAL EXAMINATION: VITAL SIGNS: Temperature 99.4, pulse 93, respirations 25, blood pressure 124/65, pulse ox 96% on 2 L. GENERAL APPEARANCE: Lying in bed, lethargic but more arousable today, just respond. EYES: Pupils equal. Conjunctivae pale. NECK: JVD unable to assess. Mass not palpable. RESPIRATORY: Effort increased LUNGS: Decreased breath sounds. CARDIOVASCULAR: First and second sounds normal. No edema. ABDOMEN: Soft, nontender. Liver and spleen not palpable. ENT: NG tube in place for feeding. PSYCHIATRY: Unable to assess. NEUROLOGICAL: Pupils are equal. INVESTIGATIONS: White count 9.4, hemoglobin 7.9, platelets 147, potassium 4.4, BUN 28, creatinine 0.67. Chest x-ray shows bilateral pleural effusion. ASSESSMENT: 1. Acute urinary tract infection from cystitis and sepsis on presentation, cultures growing Staphylococcus Simulans. 2. Severe sepsis, combination of urinary tract infection and possible aspiration pneumonia, bilateral, present on admission. 3. Acute hypoxic respiratory failure requiring Ventimask, currently oxygen requirement is around 4 L. 4. Acute lactic acidosis. 5. Severe hypokalemia, multifactorial due to sepsis. 6. Acute kidney injury probably acute tubular necrosis, now corrected. 7. Pancytopenia/bicytopenia probably secondary to sepsis. 8. Developmental delay. 9. Parkinson's disorder. 10.Schizoaffective disorder. 11.Chronic medical debility. 12.Essential hypertension. 13.Hyperlipidemia. 14.Septic shock status post being on pressors. 15.Blood cultures positive Staphylococcus capitis ureolyticus. 16.CODE STATUS: FULL CODE. 17.Acute metabolic encephalopathy, multifactorial, improving. PLAN: Patient does seem to be responding. Oxygen requirement is coming down. Awaiting a swallow evaluation in the morning, suppose patient can be started on applesauce consistency feeding with supervision. MMODL / IJN: [id number] /
[2018-06-25 00:14] LABS: Glucose,Whole Blood 88 mg/dL (75-99)
[2018-06-25] MEDS: VANCOMYCIN 750 MG in SODIUM CHLORIDE 0.9% 250 ML IVPB SCH ×2 (00:19→12:49)
[2018-06-25 05:59] LABS: Anion Gap 4 mmol/L; Anisocytosis Moderate; Basophils % (A) 0 %; Blood Urea Nitrogen 30 mg/dL (7-17); Carbon Dioxide 38 mmol/L (22-30); Chloride 98 mmol/L (98-107); Eosinophils # (A) 0.2 k/uL (0-0.7); Eosinophils % (A) 2 %; Glucose 114 mg/dL (74-99); HCT 25.8 % (34.0-46.0); HGB 7.8 gm/dL (11.4-16.0); Lymphocytes # (A) 0.9 k/uL (1.0-4.8); Lymphocytes % (A) 9 %; MCH 26.4 pg (25.0-35.0); MCHC 30.3 g/dL (31.0-37.0); Magnesium 1.9 mg/dL (1.6-2.3); Mean Platelet Volume 7.8; Monocytes # (A) 0.5 k/uL (0-1.0); Monocytes % (A) 5 %; Neutrophils # (A) 8.3 k/uL (1.3-7.7); Neutrophils % (A) 82 %; Phosphorus 3.3 mg/dL (2.5-4.5); Platelet Count 222 k/uL (150-450); Potassium 3.8 mmol/L (3.5-5.1); RBC 2.96 m/uL (3.80-5.40); RDW 20.8 % (11.5-15.5); Sodium 140 mmol/L (137-145); WBC 10.2 k/uL (3.8-10.6)
[2018-06-25 06:39] LABS: Glucose,Whole Blood 107 mg/dL (75-99)
[2018-06-25] MEDS ORDERED: Potassium Replacement Protocol 1 EACH MISC MISCELLANE PRN (07:16)
--- NOTE | 2018-06-25 07:22 | XR ---
EXAMINATION TYPE: XR chest 1V DATE OF EXAM: 06/25/2018 COMPARISON: 06/24/2018 HISTORY: 78-year-old female shortness of breath, fluid evaluation TECHNIQUE: Single frontal view of the chest is obtained. FINDINGS: NG tube courses below the diaphragm. Heart upper limits of normal in size. [id number] left ple ural effusion and small right pleural effusions, improving on the left. Adjacent bibasilar opacities. IMPRESSION: Improving small to moderate left pleural effusion and continued small right pleural effusion. Promine nt adjacent bibasilar areas of atelectasis and/or consolidation.
[2018-06-25] MEDS: IPRATROPIUM-ALBUTEROL 3 ML NEB INHALATION SCH ×4 (07:23→21:30)
[2018-06-25] MEDS ORDERED: POTASSIUM BICARBONATE/CIT AC 20 MEQ TABLET.EFF NG-TUBE SCH (08:00)
[2018-06-25] MEDS: MEROPENEM 1 GM in SODIUM CHLORIDE 0.9% 100 ML IVPB SCH ×2 (08:44→15:38)
[2018-06-25] MEDS: BENZTROPINE MESYLATE 0.5 MG TAB PO SCH ×2 (08:45→21:29)
[2018-06-25] MEDS: PANTOPRAZOLE 40 MG/10 ML VIAL IVP SCH (08:45)
[2018-06-25] MEDS: FUROSEMIDE 10 MG/ML 2 ML VIAL IV SCH ×2 (08:46→15:38)
[2018-06-25] MEDS: ASPIRIN 81 MG PO SCH (08:46)
[2018-06-25] MEDS: risperiDONE 1 MG TAB PO SCH ×2 (08:46→21:29)
[2018-06-25] MEDS: LEVOTHYROXINE 125 MCG TAB PO SCH (08:46)
[2018-06-25] MEDS: FERROUS SULFATE ORAL ELIXIR 300 MG/5 ML CUP PO SCH ×2 (08:46→16:29)
[2018-06-25] MEDS: VALPROIC ACID ORAL SOLN 250 MG/5 ML CUP NG-TUBE SCH ×3 (08:46→21:29)
[2018-06-25 12:00] LABS: Glucose,Whole Blood 111 mg/dL (75-99)
[2018-06-25] MEDS: BUDESONIDE 0.25 MG/2 ML NEBU INHALATION SCH ×2 (12:00→21:30)
--- NOTE | 2018-06-25 13:14 | P.PN ---
Subjective Progress Note Date: 06/25/18 Principal diagnosis: Acute hypoxic respiratory failure secondary to bilateral aspiration pneumonia. istory of present illness: This is 78-year-old white female patient with past medical history of developmental delay, Parkinson's disease, hypothyroidism, seizure disorder, congestive heart failure with an unknown ejection fraction, mitral valve prolapse history, hypertension, schizoaffective disorder, hyperlipidemia, osteoarthritis, depression, and former nicotine dependence. Patient resides at home, with 24-hour care, patient is wheelchair bound, and requires extensive assistance with all ADLs including feeding. Patient has a public guardian. Patient was recently diagnosed with the urinary tract infection, and was on the third day of her Bactrim. Patient is under the care of visiting physicians, follows with Carlos the nurse practitioner. In the last couple of days she was noted to be more lethargic, she did have an episode of vomiting, and decreased oral intake. Yesterday she stopped taking in anything at all. She is progressively weaker and confused. Normally her mentation allows her to communicate verbally. She has caregiver at the bedside as was providing much of the history. A month ago patient was also hospitalized at [facility] for pneumonia, congestive heart failure. Patient was hypothermic on presentation, with a temp of 92.1 rectally, she was hypotensive, with a blood pressure as low as 44/33. Brain CT showed mild atrophy, hydrocephalus but no acute changes. Chest x-ray shows cardiac megaly, vascular congestion and pulmonary edema, and small bilateral pleural effusions. Patient was fluid resuscitated between half liters of warmed fluids 0.9 normal saline in the emergency department, she was persistently hypotensive, although blood pressure had improved, and she was started on levophed currently infusing at 25 mics per minute. Patient is seen in the intensive care unit this morning , hypothermic has resolved, temp is 97.6, blood cultures urine cultures were sent, and are pending at this time, patient did receive a dose of Rocephin in the emergency department, then her antibiotics over to Levaquin and Zosyn. She is quite lethargic, she is a 55% Ventimask, blood gases were done on 55% FiO2, and showed pO2 of 1:15, pCO2 40, and pH of 7.37. She'll labs showed WBC of 3.7 , hemoglobin of 8.7, white count of 90, bands of 52%, INR of 0.9, sodium is 129 , potassium is 4.8, chloride is 94, CO2 of 22, BUN of 31 and creatinine is 1.3. Lactic acid was 2.4 on admission, its improved after fluid resuscitation is down to 1.4 this morning, troponin 0.032. Total CK is 44, CK-MB is 6.2, urinalysis showed cloudy urine with large amounts of leukocyte esterase, WBC of 4. On 06/24/2018, the patient is doing well. His communicating. No respiratory distress. She failed her swallow evaluation and this will be repeated tomorrow and the patient is pleasant NG tube in place for nutritional support. She is tolerating the tube feeds. No nausea. No vomiting. No diarrhea. No abdominal pain. No abdominal distention. No headaches. Her chest x-ray from today shows continuing better pleural effusion which are essentially small yet left is more than right. There is mild four-vessel congestion. Is also an NG tube in place. The hemoglobin stable at 7.9. No significant leukocytosis. Platelets are improving. The patient remains on a combination of Merrem and vancomycin. The patient also on IV Lasix 20 mg every 8 hours. The fluid balance remains negative and the patient has lost few pounds over the past several days. The swallow evaluation is to be repeated. The patient failed a swallow evaluation. She is still receiving enteral feeding for nutritional support via an NG tube. On 06/25/2018, patient remains in the intensive care unit, on few liters nasal cannula, saturations are marginal, patient is supposed to have an swallow evaluation today, I still believe that the patient is having ongoing aspiration. Patient has a nasogastric tube in place now, and she is being fed via nasogastric tube. She fails the swallow evaluation, patient may require a PEG tube placement. Chest x-ray continues to show by basilar infiltrates, bilateral pleural effusions, left more so than right. He remains on Lasix 20 mg IV push every 8 hours. Chest x-ray and all labs were reviewed today. Objective - Vital Signs Vital signs: Vital Signs Temp 98.9 F 06/25/18 08:00 Pulse 96 06/25/18 12:16 Resp 28 H 06/25/18 12:00 BP 112/57 06/25/18 12:00 Pulse Ox 93 L 01/21/19 12:00 Intake & Output 06/24/18 06/25/18 06/25/18 18:59 06:59 18:59 Intake Total 1150 280 30 Output Total 725 750 Balance 425 -470 30 Weight 56.8 kg Intake: IV 650 40 0.9 NACL 200 40 Meropenem 1 gm In Sodium 200 Chloride 0.9% 100 ml @ 200 mls/hr IVPB Q8HR DEANNA Rx#:[id number] Vancomycin 750 mg In 250 Sodium Chloride 0.9% 250 ml @ 125 mls/hr IVPB Q12H DEANNA Rx#:[id number] Oral 20 Tube Feeding 480 150 30 Other 90 Output: Urine 725 750 Other: Voiding Method Indwelling Catheter Indwelling Catheter Indwelling Catheter ABP, PAP, CO, CI - Last Documented Arterial Blood Pressure 122/45 - Exam GENERAL EXAM: Revealed a 78-year-old female, in no distress, on 4 L nasal cannula. HEENT: PERRLA, EOMI, no icterus. Moist membranes. Neck is supple, no JVD. CHEST: No chest wall deformity. Symmetrical expansion. LUNGS: Diffuse rhonchi throughout the lung huynh, and the patient has severe kyphoscoliosis of the thoracic spine. CVS: Regular rate and rhythm, normal S1 and S2, no gallops, harsh systolic murmur across the precordium ABDOMEN: Soft, nontender. No hepatosplenomegaly, normal bowel sounds, no guarding or rigidity. EXTREMITIES: No clubbing, no edema, no cyanosis, 2+ pulses and upper and lower extremities. MUSCULOSKELETAL: Normal range of motion, muscle strength could not be assessed. But patient is noted to be generally weak. SPINE: No scoliosis or deformity SKIN: No rashes CENTRAL NERVOUS SYSTEM: Lethargic. Follows simple instructions, opens eyes, - Labs CBC & Chem 7: 06/25/18 05:23 06/25/18 05:23 Labs: Abnormal Lab Results - Last 24 Hours (Table) 06/24/18 06/25/18 06/25/18 Range/Units 19:00 05:23 05:23 RBC 2.96 L (3.80-5.40) m/uL Hgb 7.8 L (11.4-16.0) gm/dL Hct 25.8 L (34.0-46.0) % MCHC 30.3 L (31.0-37.0) g/dL RDW 20.8 H (11.5-15.5) % Neutrophils # 8.3 H (1.3-7.7) k/uL Lymphocytes # 0.9 L (1.0-4.8) k/uL Carbon Dioxide 38 H (22-30) mmol/L BUN 30 H (7-17) mg/dL Glucose 114 H (74-99) mg/dL POC Glucose (mg/dL) 111 H (75-99) mg/dL 06/25/18 06/25/18 Range/Units 06:08 11:49 RBC (3.80-5.40) m/uL Hgb (11.4-16.0) gm/dL Hct (34.0-46.0) % MCHC (31.0-37.0) g/dL RDW (11.5-15.5) % Neutrophils # (1.3-7.7) k/uL Lymphocytes # (1.0-4.8) k/uL Carbon Dioxide (22-30) mmol/L BUN (7-17) mg/dL Glucose (74-99) mg/dL POC Glucose (mg/dL) 107 H 111 H (75-99) mg/dL Assessment and Plan Assessment: Impression: Acute hypoxic respiratory failure secondary to bilateral aspiration pneumonia. 2 staphylococcal bacteremia. Staphylococcal UTI on antibiotics. 3 acute kidney injury, responded well to treatment since presentation. 4 seizure disorder, on Depakote 5 Parkinson's disease 6 schizoaffective disorder 7 gait dysfunction 8 hypertension 9 chronic anemia 10 thrombocytopenia improving since admission 11 hypothermia on presentation, resolved 12 lactic acidosis on admission resolved. Recommendation: Continue antibiotics, continue IV Lasix, continue feedings via nasogastric tube, patient is scheduled to have swallowing evaluation today, and if she fails may require a PEG tube placement. Overall prognosis considering her multiple issues as noted above remains extremely poor and guarded, we'll continue to monitor in the ICU, patient remains full code, that may have to be readdressed with the legal guardian. Prognosis again is extremely poor and guarded. Time with Patient: Less than 30
[2018-06-25] MEDS: ATORVASTATIN 10 MG TAB PO SCH (15:38)
--- NOTE | 2018-06-25 16:11 | FL ---
MODIFIED SWALLOW / DEGLUTITION STUDY DATE OF EXAM: 06/25/2018 CLINICAL HISTORY: 78-year-old female Dysphagia. Indwelling NG tube. Possible PEG tube requirement. As sess for aspiration. Currently on thin liquid and puree diet. TECHNIQUE: Deglutition study is performed utilizing thin liquid barium and, barium thick applesauce. Total fluoroscopy time: 1 minute 37 seconds. Total images: None. Real-time fluoroscopy support was provided to speech pathology. COMPARISON: None. FINDINGS: Delayed AP transit of bolus. There is mild delay in swallow. Very difficult positioning secondary to severe patient kyphosis. Transient penetration is noted with thin liquids. Otherwise, no aspiration i s seen with either thin liquid or pureed consistencies. IMPRESSION: 1. Technically difficult exam due to severe kyphosis. Delayed AP transit of bolus and mildly delayed swallow. 2. Thin liquids and pureed consistency was evaluated. There is transient penetration with thin liquid . Otherwise, no aspiration seen. Please refer to speech therapist notes for further details if necessary.
[2018-06-25 18:36] LABS: Glucose,Whole Blood 115 mg/dL (75-99)
[2018-06-25] MEDS ORDERED: VANCOMYCIN TROUGH DUE 1 EACH MISC MISCELLANE ONE (23:00)
[2018-06-26] MEDS: MEROPENEM 1 GM in SODIUM CHLORIDE 0.9% 100 ML IVPB SCH ×4 (00:01→23:23)
[2018-06-26] MEDS: VANCOMYCIN 750 MG in SODIUM CHLORIDE 0.9% 250 ML IVPB SCH ×2 (00:01→11:34)
[2018-06-26] MEDS: FUROSEMIDE 10 MG/ML 2 ML VIAL IV SCH ×4 (00:01→23:23)
[2018-06-26 00:35] LABS: Glucose,Whole Blood 100 mg/dL (75-99)
[2018-06-26 05:53] LABS: Anisocytosis Moderate; Basophils # (A) 0.1 k/uL (0-0.2); Basophils % (A) 1 %; Eosinophils # (A) 0.2 k/uL (0-0.7); Eosinophils % (A) 2 %; HCT 24.9 % (34.0-46.0); HGB 7.8 gm/dL (11.4-16.0); Hypochromasia Slight; Lymphocytes # (A) 1.1 k/uL (1.0-4.8); Lymphocytes % (A) 12 %; MCH 27.7 pg (25.0-35.0); MCHC 31.4 g/dL (31.0-37.0); MCV 88.3 fL (80.0-100.0); Mean Platelet Volume 6.9; Monocytes # (A) 0.4 k/uL (0-1.0); Monocytes % (A) 5 %; Neutrophils # (A) 6.7 k/uL (1.3-7.7); Neutrophils % (A) 77 %; Platelet Count 329 k/uL (150-450); RBC 2.82 m/uL (3.80-5.40); WBC 8.7 k/uL (3.8-10.6)
[2018-06-26 06:02] LABS: Anion Gap 5 mmol/L; Blood Urea Nitrogen 31 mg/dL (7-17); Calcium 9.1 mg/dL (8.4-10.2); Carbon Dioxide 38 mmol/L (22-30); Chloride 98 mmol/L (98-107); Glucose 94 mg/dL (74-99); Potassium 3.6 mmol/L (3.5-5.1); Sodium 141 mmol/L (137-145)
[2018-06-26 06:16] LABS: Glucose,Whole Blood 105 mg/dL (75-99)
[2018-06-26] MEDS: POTASSIUM CHLORIDE 10 MEQ in WATER FOR INJECTION 1 100ML.BAG IVPB SCH ×2 (06:38→08:07)
[2018-06-26] MEDS: IPRATROPIUM-ALBUTEROL 3 ML NEB INHALATION SCH ×4 (07:12→19:34)
[2018-06-26] MEDS: BUDESONIDE 0.25 MG/2 ML NEBU INHALATION SCH ×2 (07:12→19:34)
[2018-06-26] MEDS: PANTOPRAZOLE 40 MG/10 ML VIAL IVP SCH (08:06)
[2018-06-26] MEDS: FERROUS SULFATE ORAL ELIXIR 300 MG/5 ML CUP PO SCH ×2 (08:07→17:34)
[2018-06-26] MEDS: risperiDONE 1 MG TAB PO SCH ×2 (08:07→21:28)
[2018-06-26] MEDS: BENZTROPINE MESYLATE 0.5 MG TAB PO SCH ×2 (08:07→21:27)
[2018-06-26] MEDS: LEVOTHYROXINE 125 MCG TAB PO SCH (08:07)
[2018-06-26] MEDS: ASPIRIN 81 MG PO SCH (08:07)
[2018-06-26] MEDS: VALPROIC ACID ORAL SOLN 250 MG/5 ML CUP NG-TUBE SCH ×3 (08:07→21:27)
--- NOTE | 2018-06-26 08:13 | XR ---
EXAMINATION TYPE: XR chest 1V DATE OF EXAM: 06/26/2018 CLINICAL HISTORY: Difficulty breathing progress study. TECHNIQUE: Single AP portable upright view of the chest is obtained. COMPARISON: Chest x-ray from one day earlier and older studies. FINDINGS: There is interval removal of nasogastric tube. Cardiac silhouette size is stable and felt mildly enlarged. There is bibasilar opacity redemonstrated left greater than right. Upper lungs remai n clear without pneumothorax. Osseous structures are intact. IMPRESSION: Persistent left greater than right bibasilar acute atelectasis and/or infiltrate and prob able small to tiny left greater than right pleural effusions on background of mild cardiomegaly. Find ings stable or slightly improved from most recent prior.
--- NOTE | 2018-06-26 08:30 | PN ---
PROGRESS NOTE DATE OF SERVICE: 06/25/2018 PRESENTING COMPLAINT: Tired. INTERVAL HISTORY: This patient was seen by me in the ICU yesterday. Admitted with acute UTI, sepsis, aspiration pneumonia, acute hypoxic respiratory failure, severe hypothermia, acute kidney injury and pancytopenia. Patient has baseline mental delay. Patient did much better today, actually awake and answering questions. Re-evaluated by Speech, actually did tolerate some diet. Oxygen requirement has come down. NG tube was discontinued earlier today. REVIEW OF SYSTEMS: Was attempted. CURRENT MEDICATIONS: Reviewed that include IV meropenem and vancomycin. PHYSICAL EXAMINATION: Temperature 98.5, pulse 96, respiration 20, blood pressure 137/81, pulse ox 93% on 3 L. GENERAL APPEARANCE: Sitting on bed, more awake, answering questions eyes: EYES: Pupils equal. Conjunctivae are pale. NECK: JVD not raised. Mass not palpable. RESPIRATORY: Effort increased. LUNGS: Decreased breath sounds. CARDIOVASCULAR: First and second sounds normal, no edema. ABDOMEN: Soft, nontender. Liver and spleen not palpable. PSYCHIATRY: Answering questions. NEUROLOGICAL: Moving all limbs. INVESTIGATIONS: White count 10.2, hemoglobin 7.8, platelets 222, potassium 3.8. ASSESSMENT: 1. Acute urinary tract infection from cystitis and sepsis on presentation, cultures growing Staphylococcus Simulans. 2. Severe sepsis, combination of urinary tract infection and possible aspiration pneumonia bilateral, present on admission, much improved. 3. Acute hypoxic respiratory failure requiring currently oxygen requirement down to 3 L. 4. Acute lactic acidosis. 5. Severe hypokalemia, multifactorial due to sepsis. 6. Acute kidney injury probably acute tubular necrosis, now corrected. 7. Pancytopenia/probably due to sepsis. 8. Developmental delay. 9. Parkinson's disorder. 10.Schizoaffective disorder. 11.Chronic medical debility. 12.Essential hypertension. 13.Hyperlipidemia. 14.Septic shock, status post being on the pressors. 15.Blood cultures positive Staphylococcus capitis ureteric. 16.CODE STATUS: FULL CODE. 17.Acute metabolic encephalopathy, multifactorial, much improved. PLAN: Patient is tolerating a diet. Oxygen requirement coming down. Continue with antibiotic. Should be able to switch to oral antibiotics in next 24 hours. Patient hopefully tomorrow can be moved out of the ICU. MMODL / IJN: [id number] /
[2018-06-26 12:16] LABS: Glucose,Whole Blood 102 mg/dL (75-99)
--- NOTE | 2018-06-26 12:23 | P.PN ---
Subjective Progress Note Date: 06/26/18 Principal diagnosis: Acute hypoxic respiratory failure secondary to bilateral aspiration pneumonia. istory of present illness: This is 78-year-old white female patient with past medical history of developmental delay, Parkinson's disease, hypothyroidism, seizure disorder, congestive heart failure with an unknown ejection fraction, mitral valve prolapse history, hypertension, schizoaffective disorder, hyperlipidemia, osteoarthritis, depression, and former nicotine dependence. Patient resides at home, with 24-hour care, patient is wheelchair bound, and requires extensive assistance with all ADLs including feeding. Patient has a public guardian. Patient was recently diagnosed with the urinary tract infection, and was on the third day of her Bactrim. Patient is under the care of visiting physicians, follows with Carlos the nurse practitioner. In the last couple of days she was noted to be more lethargic, she did have an episode of vomiting, and decreased oral intake. Yesterday she stopped taking in anything at all. She is progressively weaker and confused. Normally her mentation allows her to communicate verbally. She has caregiver at the bedside as was providing much of the history. A month ago patient was also hospitalized at [facility] for pneumonia, congestive heart failure. Patient was hypothermic on presentation, with a temp of 92.1 rectally, she was hypotensive, with a blood pressure as low as 44/33. Brain CT showed mild atrophy, hydrocephalus but no acute changes. Chest x-ray shows cardiac megaly, vascular congestion and pulmonary edema, and small bilateral pleural effusions. Patient was fluid resuscitated between half liters of warmed fluids 0.9 normal saline in the emergency department, she was persistently hypotensive, although blood pressure had improved, and she was started on levophed currently infusing at 25 mics per minute. Patient is seen in the intensive care unit this morning , hypothermic has resolved, temp is 97.6, blood cultures urine cultures were sent, and are pending at this time, patient did receive a dose of Rocephin in the emergency department, then her antibiotics over to Levaquin and Zosyn. She is quite lethargic, she is a 55% Ventimask, blood gases were done on 55% FiO2, and showed pO2 of 1:15, pCO2 40, and pH of 7.37. She'll labs showed WBC of 3.7 , hemoglobin of 8.7, white count of 90, bands of 52%, INR of 0.9, sodium is 129 , potassium is 4.8, chloride is 94, CO2 of 22, BUN of 31 and creatinine is 1.3. Lactic acid was 2.4 on admission, its improved after fluid resuscitation is down to 1.4 this morning, troponin 0.032. Total CK is 44, CK-MB is 6.2, urinalysis showed cloudy urine with large amounts of leukocyte esterase, WBC of 4. On 06/24/2018, the patient is doing well. His communicating. No respiratory distress. She failed her swallow evaluation and this will be repeated tomorrow and the patient is pleasant NG tube in place for nutritional support. She is tolerating the tube feeds. No nausea. No vomiting. No diarrhea. No abdominal pain. No abdominal distention. No headaches. Her chest x-ray from today shows continuing better pleural effusion which are essentially small yet left is more than right. There is mild four-vessel congestion. Is also an NG tube in place. The hemoglobin stable at 7.9. No significant leukocytosis. Platelets are improving. The patient remains on a combination of Merrem and vancomycin. The patient also on IV Lasix 20 mg every 8 hours. The fluid balance remains negative and the patient has lost few pounds over the past several days. The swallow evaluation is to be repeated. The patient failed a swallow evaluation. She is still receiving enteral feeding for nutritional support via an NG tube. On 06/25/2018, patient remains in the intensive care unit, on few liters nasal cannula, saturations are marginal, patient is supposed to have an swallow evaluation today, I still believe that the patient is having ongoing aspiration. Patient has a nasogastric tube in place now, and she is being fed via nasogastric tube. She fails the swallow evaluation, patient may require a PEG tube placement. Chest x-ray continues to show by basilar infiltrates, bilateral pleural effusions, left more so than right. He remains on Lasix 20 mg IV push every 8 hours. Chest x-ray and all labs were reviewed today. Patient was reevaluated today on 06/26/2018, she seems to be more awake, and more responsive today compared to yesterday. Patient had her swallow evaluation , and it came back normal. There was no evidence of aspiration. Hence no need to recommend a PEG tube placement. Patient in the meantime is being fed via nasogastric tube, and overall she is making significant improvement, chest x- ray is improving, I believe there is a component of interstitial edema improving with Lasix which is given 20 mg IV push every 8 hours. Chest x-ray is clearly showing improvement and clinically the patient is feeling better. WBC count is 8.7 hemoglobin is 7.8 to left lites are normal renal profile is relatively normal Objective - Vital Signs Vital signs: Vital Signs Temp 97.2 F L 06/26/18 08:00 Pulse 82 06/26/18 11:13 Resp 18 06/26/18 11:37 BP 129/71 06/26/18 08:00 Pulse Ox 94 L 06/26/18 08:00 Intake & Output 06/25/18 06/26/18 06/26/18 18:59 06:59 18:59 Intake Total 1420 770 180 Output Total 1220 500 450 Balance 200 270 -270 Weight 56.8 kg 55 kg Intake: IV 570 530 180 0.9 NACL 320 180 180 Meropenem 1 gm In Sodium 100 Chloride 0.9% 100 ml @ 200 mls/hr IVPB Q8HR DEANNA Rx#:[id number] Vancomycin 750 mg In 250 250 Sodium Chloride 0.9% 250 ml @ 125 mls/hr IVPB Q12H DEANNA Rx#:[id number] Intake, IV Titration 200 Amount Meropenem 1 gm In Sodium 200 Chloride 0.9% 100 ml @ 200 mls/hr IVPB Q8HR DEANNA Rx#:[id number] Oral 350 240 Tube Feeding 270 Other 30 Output: Urine 1220 500 450 Other: Voiding Method Indwelling Catheter Indwelling Catheter Indwelling Catheter # Bowel Movements 2 1 ABP, PAP, CO, CI - Last Documented Arterial Blood Pressure 122/45 - Exam GENERAL EXAM: Revealed a 78-year-old female, in no distress, on 2 L nasal cannula. HEENT: PERRLA, EOMI, no icterus. Moist membranes. Neck is supple, no JVD. CHEST: No chest wall deformity. Symmetrical expansion. LUNGS: Diffuse rhonchi throughout the lung huynh, and the patient has severe kyphoscoliosis of the thoracic spine. CVS: Regular rate and rhythm, normal S1 and S2, no gallops, harsh systolic murmur across the precordium ABDOMEN: Soft, nontender. No hepatosplenomegaly, normal bowel sounds, no guarding or rigidity. EXTREMITIES: No clubbing, no edema, no cyanosis, 2+ pulses and upper and lower extremities. MUSCULOSKELETAL: Normal range of motion, muscle strength could not be assessed. But patient is noted to be generally weak. CENTRAL NERVOUS SYSTEM: Awake, follows simple instructions, slightly confused. Otherwise no gross focal neurologic deficits. - Labs CBC & Chem 7: 06/26/18 04:50 06/26/18 04:50 Labs: Abnormal Lab Results - Last 24 Hours (Table) 06/25/18 06/26/18 06/26/18 Range/Units 18:24 00:23 04:50 RBC 2.82 L (3.80-5.40) m/uL Hgb 7.8 L (11.4-16.0) gm/dL Hct 24.9 L (34.0-46.0) % RDW 21.0 H (11.5-15.5) % Carbon Dioxide (22-30) mmol/L BUN (7-17) mg/dL POC Glucose (mg/dL) 115 H 100 H (75-99) mg/dL 06/26/18 06/26/18 06/26/18 Range/Units 04:50 06:05 12:04 RBC (3.80-5.40) m/uL Hgb (11.4-16.0) gm/dL Hct (34.0-46.0) % RDW (11.5-15.5) % Carbon Dioxide 38 H (22-30) mmol/L BUN 31 H (7-17) mg/dL POC Glucose (mg/dL) 105 H 102 H (75-99) mg/dL Assessment and Plan Assessment: Impression: Acute hypoxic respiratory failure most likely secondary to bilateral aspiration pneumonia. 2 staphylococcal bacteremia. Staphylococcal UTI on antibiotics. 3 acute kidney injury, responded well to treatment since presentation. 4 seizure disorder, on Depakote 5 Parkinson's disease 6 schizoaffective disorder 7 gait dysfunction 8 hypertension 9 chronic anemia 10 thrombocytopenia improving since admission 11 hypothermia on presentation, resolved 12 lactic acidosis on admission resolved. Recommendation: Continue antibiotics, continue IV Lasix, continue feedings via nasogastric tube, swallow study was reviewed, no need for a PEG tube placement. Patient could be transferred out of the ICU to a regular medical floor, continue addressing all the complex issues as noted above. Prognosis in the [facility] remains poor and guarded. Time with Patient: Less than 30
[2018-06-26] MEDS: ATORVASTATIN 10 MG TAB PO SCH (17:33)
[2018-06-27] MEDS: VANCOMYCIN 750 MG in SODIUM CHLORIDE 0.9% 250 ML IVPB SCH ×3 (00:24→15:23)
--- NOTE | 2018-06-27 02:07 | PN ---
PROGRESS NOTE DATE OF SERVICE: 06/26/2018. PRESENTING COMPLAINT: More awake. INTERVAL HISTORY: This patient is seen by me in the ICU this morning. Admitted with acute UTI, sepsis, aspiration pneumonia, acute hypoxic respiratory failure, severe hypothermia, acute kidney injury and pancytopenia. The patient has baseline mental delay. The patient continues to improve. Actually speaking today. Did partial swallow eval and actually was affected with some food. Oxygen requirement is down to 2 L. Communicating better. REVIEW OF SYSTEMS: Attempted for constitutional, cardiovascular, GI, pulmonary; relevant findings as above. MEDICATIONS: Medications reviewed, that include IV meropenem and vancomycin. PHYSICAL EXAMINATION: Temperature 97.8, pulse 90, respiratory rate 18, blood pressure 147/71, pulse ox 97% on 2 liters. GENERAL APPEARANCE: More awake, communicating. EYES: Pupils equal. Conjunctiva pale. NECK: JVD not raised. Mass not palpable. Respiratory effort increased. LUNGS: Improved air entry. CARDIOVASCULAR: First and second sounds normal. No edema. ABDOMEN: Soft, nontender. Liver and spleen not palpable. PSYCHIATRY: Answering some questions. INVESTIGATIONS: White count 8.7, hemoglobin 7.8, potassium 3.6. Chest x-ray film personally reviewed by me shows improving infiltrates. ASSESSMENT: 1. Acute urinary tract infection from cystitis and sepsis on presentation, cultures growing Staphylococcus Simulans. 2. Severe sepsis, combination of UTI and possible aspiration pneumonia bilateral, present on admission, much improved. 3. Acute hypoxic respiratory failure requiring BiPAP, now patient is down to 3 L of oxygen. 4. Acute lactic acidosis, improved. 5. Severe hypokalemia, multifactorial due to sepsis. 6. Acute kidney injury probably acute tubular necrosis from sepsis improved. 7. Pancytopenia probably due to sepsis. 8. Developmental delay. 9. Parkinson's disorder. 10.Schizoaffective disorder. 11.Chronic medical debility. 12.Essential hypertension. 13.Hyperlipidemia. 14.Status post septic shock. The patient was on pressors. 15.Blood cultures positive for Staphylococcus capitis ureteric. 16.Acute metabolic encephalopathy, multifactorial, resolving. 17.CODE STATUS: FULL CODE. PLAN: Patient will be moved out of ICU. Continue IV antibiotics for another 24 hours and then switch to oral antibiotics. Diet to be advanced as tolerated. MMODL / IJN: [id number] /
[2018-06-27] MEDS: IPRATROPIUM-ALBUTEROL 3 ML NEB INHALATION SCH ×4 (07:44→20:19)
[2018-06-27] MEDS: BUDESONIDE 0.25 MG/2 ML NEBU INHALATION SCH ×2 (07:44→20:19)
[2018-06-27] MEDS: MEROPENEM 1 GM in SODIUM CHLORIDE 0.9% 100 ML IVPB SCH ×2 (07:58→15:59)
[2018-06-27] MEDS: ASPIRIN 81 MG PO SCH (07:59)
[2018-06-27] MEDS: LEVOTHYROXINE 125 MCG TAB PO SCH (07:59)
[2018-06-27] MEDS: FUROSEMIDE 10 MG/ML 2 ML VIAL IV SCH ×2 (07:59→15:59)
[2018-06-27] MEDS: FERROUS SULFATE ORAL ELIXIR 300 MG/5 ML CUP PO SCH ×2 (07:59→16:00)
[2018-06-27] MEDS: risperiDONE 1 MG TAB PO SCH ×2 (07:59→21:35)
[2018-06-27] MEDS: PANTOPRAZOLE 40 MG/10 ML VIAL IVP SCH (08:00)
[2018-06-27] MEDS: VALPROIC ACID ORAL SOLN 250 MG/5 ML CUP NG-TUBE SCH ×3 (08:00→21:36)
[2018-06-27] MEDS: BENZTROPINE MESYLATE 0.5 MG TAB PO SCH ×2 (08:00→21:36)
[2018-06-27] MEDS: PANTOPRAZOLE 40 MG TABLET PO SCH (08:06)
--- NOTE | 2018-06-27 11:28 | P.PN ---
Subjective Progress Note Date: 06/27/18 Principal diagnosis: Acute hypoxic respiratory failure secondary to bilateral aspiration pneumonia. This is 78-year-old white female patient with past medical history of developmental delay, Parkinson's disease, hypothyroidism, seizure disorder, congestive heart failure with an unknown ejection fraction, mitral valve prolapse history, hypertension, schizoaffective disorder, hyperlipidemia, osteoarthritis, depression, and former nicotine dependence. Patient resides at home, with 24-hour care, patient is wheelchair bound, and requires extensive assistance with all ADLs including feeding. Patient has a public guardian. Patient was recently diagnosed with the urinary tract infection, and was on the third day of her Bactrim. Patient is under the care of visiting physicians, follows with Carlos the nurse practitioner. In the last couple of days she was noted to be more lethargic, she did have an episode of vomiting, and decreased oral intake. Yesterday she stopped taking in anything at all. She is progressively weaker and confused. Normally her mentation allows her to communicate verbally. She has caregiver at the bedside as was providing much of the history. A month ago patient was also hospitalized at [facility] for pneumonia, congestive heart failure. Patient was hypothermic on presentation, with a temp of 92.1 rectally, she was hypotensive, with a blood pressure as low as 44/33. Brain CT showed mild atrophy, hydrocephalus but no acute changes. Chest x-ray shows cardiac megaly, vascular congestion and pulmonary edema, and small bilateral pleural effusions. Patient was fluid resuscitated between half liters of warmed fluids 0.9 normal saline in the emergency department, she was persistently hypotensive, although blood pressure had improved, and she was started on levophed currently infusing at 25 mics per minute. Patient is seen in the intensive care unit this morning , hypothermic has resolved, temp is 97.6, blood cultures urine cultures were sent, and are pending at this time, patient did receive a dose of Rocephin in the emergency department, then her antibiotics over to Levaquin and Zosyn. She is quite lethargic, she is a 55% Ventimask, blood gases were done on 55% FiO2, and showed pO2 of 1:15, pCO2 40, and pH of 7.37. She'll labs showed WBC of 3.7 , hemoglobin of 8.7, white count of 90, bands of 52%, INR of 0.9, sodium is 129 , potassium is 4.8, chloride is 94, CO2 of 22, BUN of 31 and creatinine is 1.3. Lactic acid was 2.4 on admission, its improved after fluid resuscitation is down to 1.4 this morning, troponin 0.032. Total CK is 44, CK-MB is 6.2, urinalysis showed cloudy urine with large amounts of leukocyte esterase, WBC of 4. On 06/24/2018, the patient is doing well. His communicating. No respiratory distress. She failed her swallow evaluation and this will be repeated tomorrow and the patient is pleasant NG tube in place for nutritional support. She is tolerating the tube feeds. No nausea. No vomiting. No diarrhea. No abdominal pain. No abdominal distention. No headaches. Her chest x-ray from today shows continuing better pleural effusion which are essentially small yet left is more than right. There is mild four-vessel congestion. Is also an NG tube in place. The hemoglobin stable at 7.9. No significant leukocytosis. Platelets are improving. The patient remains on a combination of Merrem and vancomycin. The patient also on IV Lasix 20 mg every 8 hours. The fluid balance remains negative and the patient has lost few pounds over the past several days. The swallow evaluation is to be repeated. The patient failed a swallow evaluation. She is still receiving enteral feeding for nutritional support via an NG tube. On 06/25/2018, patient remains in the intensive care unit, on few liters nasal cannula, saturations are marginal, patient is supposed to have an swallow evaluation today, I still believe that the patient is having ongoing aspiration. Patient has a nasogastric tube in place now, and she is being fed via nasogastric tube. She fails the swallow evaluation, patient may require a PEG tube placement. Chest x-ray continues to show by basilar infiltrates, bilateral pleural effusions, left more so than right. He remains on Lasix 20 mg IV push every 8 hours. Chest x-ray and all labs were reviewed today. Patient was reevaluated today on 06/26/2018, she seems to be more awake, and more responsive today compared to yesterday. Patient had her swallow evaluation , and it came back normal. There was no evidence of aspiration. Hence no need to recommend a PEG tube placement. Patient in the meantime is being fed via nasogastric tube, and overall she is making significant improvement, chest x- ray is improving, I believe there is a component of interstitial edema improving with Lasix which is given 20 mg IV push every 8 hours. Chest x-ray is clearly showing improvement and clinically the patient is feeling better. WBC count is 8.7 hemoglobin is 7.8 to left lites are normal renal profile is relatively normal The patient is seen again today 06/27/2018 in follow-up on the regular medical floor. She is currently sitting up in a chair at the bedside. She is awake and alert in no acute distress. She denies any worsening shortness of breath, cough or congestion. He is maintaining good O2 saturations in the 90s on room air. She remains on DuoNeb inhalations, Pulmicort inhalations. Antibiotics in the form of vancomycin and meropenem. She remains on IV diuretics of 20 mg IV every 8 hours. Nasogastric tube has been removed. She is currently on a dysphagia level I: Pureed Diet. Objective - Vital Signs Vital signs: Vital Signs Temp 99.1 F 06/27/18 07:00 Pulse 84 06/27/18 07:56 Resp 18 06/27/18 08:00 BP 138/72 06/27/18 07:00 Pulse Ox 94 L 06/27/18 07:00 Intake & Output 06/26/18 06/27/18 06/27/18 18:59 06:59 18:59 Intake Total 180 350 Output Total 450 Balance -270 350 Weight 59 kg Intake: IV 180 0.9 NACL 180 Oral 350 Output: Urine 450 Other: Voiding Method Indwelling Catheter Diaper # Voids 0 1 1 # Bowel Movements 1 1 1 ABP, PAP, CO, CI - Last Documented Arterial Blood Pressure 122/45 - Exam GENERAL EXAM: A pleasant 78-year-old female patient. No acute distress. On room air. HEAD: Normocephalic/atraumatic. EYES: Normal reaction of pupils, equal size. Conjunctiva pink, sclera white. NOSE: Clear with pink turbinates. THROAT: No erythema or exudates. NECK: No masses, no JVD, no thyroid enlargement, no adenopathy. CHEST: No chest wall deformity. Symmetrical expansion. LUNGS: Diffuse rhonchi throughout the lung huynh him a few scattered crackles bibasally left greater than right. CVS: Regular rate and rhythm, normal S1 and S2, no gallops, harsh systolic murmur across the precordium ABDOMEN: Soft, nontender. No hepatosplenomegaly, normal bowel sounds, no guarding or rigidity. EXTREMITIES: No clubbing, no edema, no cyanosis, 2+ pulses and upper and lower extremities. MUSCULOSKELETAL: Muscle strength and tone normal. SPINE: Severe kyphosis. SKIN: No rashes CENTRAL NERVOUS SYSTEM: More awake compared to yesterday. The patient is moving all 4 extremities. Simple commands and being also followed. PSYCHIATRIC: Calm and comfortable - Labs CBC & Chem 7: 06/26/18 04:50 06/26/18 04:50 Labs: Abnormal Lab Results - Last 24 Hours (Table) 06/26/18 Range/Units 12:04 POC Glucose (mg/dL) 102 H (75-99) mg/dL Assessment and Plan Assessment: Assessment #1. Acute hypoxic respiratory failure with bilateral pulmonary infiltrates likely secondary to an aspiration pneumonia. Improved. On room air. #2. Lactic acidosis, recovered #3. Hypothermia, recovered #4. Recent urinary tract infection, the patient has staphylococcal simulans in the urine and staph capitis SS ureolyticus is blood cultures #5 Staphylococcal UTI with secondary sepsis and the patient is currently on IV Merrem and vancomycin. #6. Acute kidney injury, improving and the creatinine is down to 0.59 #7. Thrombocytopenia, improving #8. Hypoglycemia, recovered #9. Seizure disorder Depakote #10. Developmental delay, Parkinson's disorder, schizoaffective disorder #11. Recent hospitalization one month ago for acute congestive heart failure and pneumonia at the [facility] #12. History of mitral valve prolapse, and possibly aortic stenosis #13. Gait dysfunction, patient requires 24-hour care with all ADLs including feeding #14. Hypertension, #15 Hyperlipidemia #16 Chronic anemia, stable with a hemoglobin of 7.8 Plan: The patient was seen and evaluated by Dr. Dixon. She is improved significantly from the pulmonary standpoint. Currently maintaining O2 saturations in the 90s on room air. She remains on IV Lasix 20 mg every 8 hours. Continue vancomycin and meropenem, bronchodilators. Continue chest physiotherapy. Will continue to follow make further recommendations based on her clinical status. I, the cosigning physician, performed a history & physical examination of the patient. Lungs sounds with bilateral crackles left greater than right. Maintaining good O2 saturations in the 90s on room air. I discussed the assessment and plan of care with my nurse practitioner, Rica Thomas. I attest to the above note as dictated by her.
[2018-06-27] MEDS: ATORVASTATIN 10 MG TAB PO SCH (15:59)
[2018-06-28] MEDS: MEROPENEM 1 GM in SODIUM CHLORIDE 0.9% 100 ML IVPB SCH (00:23)
[2018-06-28] MEDS: VANCOMYCIN 750 MG in SODIUM CHLORIDE 0.9% 250 ML IVPB SCH (00:24)
[2018-06-28] MEDS: FUROSEMIDE 10 MG/ML 2 ML VIAL IV SCH (00:27)
--- NOTE | 2018-06-28 01:53 | PN ---
PROGRESS NOTE DATE OF SERVICE: June 27, 2018. PRESENTING COMPLAINT: Tired. INTERVAL HISTORY: This patient has been moved to the ICU. Initially admitted with acute UTI, sepsis, aspiration pneumonia, acute hypoxic respiratory failure, severe hypothermia, acute kidney injury and pancytopenia. The patient has mental delay, doing much better, tolerating a diet. Sitting up in a chair. The patient's caregiver is present. Oxygen requirement now down to room air, on a small dose of IV Lasix. Actually answering questions. REVIEW OF SYSTEMS: Attempted for constitutional, cardiovascular, GI, pulmonary; relevant findings as above. CURRENT MEDICATIONS: Include IV meropenem, IV vancomycin, IV Lasix 20 mg. PHYSICAL EXAMINATION: VITAL SIGNS: Temperature 99.1, pulse 84, respiratory 18, blood pressure 130/72, pulse ox 94 percent on room air. GENERAL APPEARANCE: Sitting up in a chair, looking comfortable. EYES: Pupils equal. Conjunctivae pale. NECK: JVD not raised. Mass not palpable. RESPIRATORY: Effort normal. LUNGS: Much improved air entry. CARDIOVASCULAR: 1st and 2nd sounds normal. No edema. ABDOMEN: Soft, nontender. Liver and spleen not palpable. PSYCHIATRY: Awake, answering simple questions. INVESTIGATIONS: No blood work from today. ASSESSMENT: 1. Acute urinary tract infection from cystitis and sepsis on presentation, cultures growing Staphylococcus Simulans. 2. Severe sepsis, combination urinary tract infection, possible aspiration pneumonia bilateral, present on admission, much improved. 3. Acute hypoxic respiratory failure, status post BiPAP, now on room air. 4. Acute lactic acidosis, improved. 5. Severe hypokalemia, improved. 6. Acute kidney injury probably acute tubular necrosis from sepsis, improved. 7. Pancytopenia due to sepsis, improved. 8. Developmental delay. 9. Parkinson's disorder. 10.Schizoaffective disorder. 11.Chronic medical debility. 12.Essential hypertension. 13.Hyperlipidemia. 14.Status post septic shock, status post pressors. 15.Blood cultures positive for Staphylococcus capitis. 16.Acute metabolic encephalopathy, multifactorial, improved. 17.CODE STATUS: FULL CODE. PLAN: Spoke to the caregiver, patient doing much better. We will switch over the patient to oral Lasix 40 mg starting in the morning and switch to Bactrim DS. Hoping patient can hopefully be discharged tomorrow. MMODL / IJN: [id number] /
[2018-06-28] MEDS: FUROSEMIDE 40 MG TAB PO SCH (08:11)
[2018-06-28] MEDS: SULFAMETHOX-TMP 800-160MG 1 EACH TAB PO SCH ×2 (08:11→21:03)
[2018-06-28] MEDS: VALPROIC ACID ORAL SOLN 250 MG/5 ML CUP NG-TUBE SCH ×3 (08:11→21:11)
[2018-06-28] MEDS: BENZTROPINE MESYLATE 0.5 MG TAB PO SCH ×2 (08:11→21:03)
[2018-06-28] MEDS: LEVOTHYROXINE 125 MCG TAB PO SCH (08:11)
[2018-06-28] MEDS: ASPIRIN 81 MG PO SCH (08:11)
[2018-06-28] MEDS: risperiDONE 1 MG TAB PO SCH ×2 (08:11→21:03)
[2018-06-28] MEDS: FERROUS SULFATE ORAL ELIXIR 300 MG/5 ML CUP PO SCH ×2 (08:11→17:52)
[2018-06-28] MEDS: BUDESONIDE 0.25 MG/2 ML NEBU INHALATION SCH ×2 (09:26→20:25)
[2018-06-28] MEDS: IPRATROPIUM-ALBUTEROL 3 ML NEB INHALATION SCH ×4 (09:26→20:25)
--- NOTE | 2018-06-28 13:33 | FL ---
EXAMINATION TYPE: FL barium swallow w video DATE OF EXAM: 06/28/2018 MODIFIED SWALLOW / DEGLUTITION STUDY CLINICAL HISTORY: Dysphagia. TECHNIQUE: Deglutition study is performed utilizing thin liquid barium and barium coated pudding. 0 images were saved as the exam was video recorded. 59 seconds of fluoroscopy time was utilized. COMPARISON: None. FINDINGS: The oral and pharyngeal phases show delayed initiation and propagation with all modalities tested. Mild inconsistent laryngeal penetration was seen with the thin consistency with a single epis ode of questionable trace aspiration. Delayed initiation was seen with the pudding consistency withou t aspiration or penetration. IMPRESSION: Inconsistent laryngeal penetration with the thin consistency and single episode of trace aspiration. Please refer to speech therapist notes for further details if necessary.
[2018-06-28] MEDS: ATORVASTATIN 10 MG TAB PO SCH (17:52)
[2018-06-28] MEDS: diphenhydrAMINE 25 MG CAP PO SCH (22:10)
--- NOTE | 2018-06-28 22:51 | PN ---
PROGRESS NOTE DATE OF SERVICE: 06/28/2018. PRESENT COMPLAINT: Tired. INTERVAL HISTORY: This patient has been moved out of the ICU. Initially admitted with acute UTI, sepsis, aspiration pneumonia, acute hypoxic respiratory failure, severe hypothermia, acute kidney injury and pancytopenia. The patient has mental delay. The patient was started on Bactrim today with the hope of going back to the [facility]. This evening I was called, had developed a rash. I did stop the Bactrim and ordered some Benadryl. Otherwise, this morning patient was doing well, communicating, tolerating his diet as per speech. REVIEW OF SYSTEMS: Done for constitutional, cardiovascular, GI, pulmonary; relevant findings as above. CURRENT MEDICATIONS: Reviewed. Bactrim has been discontinued. PHYSICAL EXAMINATION: Temperature 97.7, pulse 100, respirations 16, blood pressure 126/58, pulse ox 91 percent on room air. GENERAL APPEARANCE: Sitting up, comfortable, smiling. EYES: Pupils equal. Conjunctivae pale. NECK: JVD not raised. Mass not palpable. Respiratory effort normal. LUNGS: Fair air entry. CARDIOVASCULAR: 1st and 2nd heart sounds. No edema. ABDOMEN: Soft, nontender. Liver and spleen not palpable. PSYCHIATRY: Awake, answering simple questions. INVESTIGATIONS: No blood work from today. ASSESSMENT: 1. Acute urinary tract infection from cystitis and sepsis on presentation, cultures growing Staphylococcus Simulans. 2. Severe sepsis, combination of urinary tract infection, possibly aspiration pneumonia bilateral, present on admission, much improved. 3. Acute hypoxic respiratory failure, status post BiPAP, now on room air. 4. Acute lactic acidosis, improved. 5. Severe hypokalemia, improved. 6. Acute kidney injury, probably from acute tubular necrosis from sepsis, improved. 7. Pancytopenia due to sepsis, improved. 8. Developmental delay. 9. Parkinson's disorder. 10.Schizoaffective disorder. 11.Chronic medical debility. 12.Essential hypertension. 13.Hyperlipidemia. 14.Status post septic shock, status post pressors. 15.Blood cultures positive for Staphylococcus capitis. 16.Acute metabolic encephalopathy, multifactorial, improved. 17.CODE STATUS: FULL CODE. PLAN: The patient is all set this afternoon to go. I went ahead and started the patient on Bactrim. In the evening the nurse called me back, the patient developed a rash. I did stop the Bactrim and ordered some Benadryl. Switch the patient over to Augmentin and see how the patient does overnight. MMODL / IJN: [id number] /
[2018-06-29] MEDS: diphenhydrAMINE 25 MG CAP PO SCH (05:32)
[2018-06-29 06:37] VITALS: BP 151/53; TEMP 98.1
[2018-06-29] MEDS: BUDESONIDE 0.25 MG/2 ML NEBU INHALATION SCH (07:05)
[2018-06-29] MEDS: IPRATROPIUM-ALBUTEROL 3 ML NEB INHALATION SCH ×3 (07:06→15:08)
[2018-06-29] MEDS: FERROUS SULFATE ORAL ELIXIR 300 MG/5 ML CUP PO SCH (07:58)
[2018-06-29] MEDS: BENZTROPINE MESYLATE 0.5 MG TAB PO SCH (07:58)
[2018-06-29] MEDS: VALPROIC ACID ORAL SOLN 250 MG/5 ML CUP NG-TUBE SCH (07:58)
[2018-06-29] MEDS: risperiDONE 1 MG TAB PO SCH (08:03)
[2018-06-29] MEDS: ASPIRIN 81 MG PO SCH (08:04)
[2018-06-29] MEDS: LEVOTHYROXINE 125 MCG TAB PO SCH (08:04)
[2018-06-29] MEDS: FUROSEMIDE 40 MG TAB PO SCH (08:08)
[2018-06-29 08:21] VITALS: RESP 18
[2018-06-29 08:42] LABS: Anisocytosis Moderate; Basophils # (A) 0.1 k/uL (0-0.2); Basophils % (A) 1 %; Eosinophils # (A) 0.3 k/uL (0-0.7); Eosinophils % (A) 4 %; HCT 25.5 % (34.0-46.0); Hypochromasia Moderate; Lymphocytes # (A) 1.9 k/uL (1.0-4.8); Lymphocytes % (A) 21 %; MCH 27.9 pg (25.0-35.0); MCHC 31.2 g/dL (31.0-37.0); MCV 89.3 fL (80.0-100.0); Mean Platelet Volume 6.8; Monocytes # (A) 0.4 k/uL (0-1.0); Monocytes % (A) 5 %; Neutrophils % (A) 67 %; RBC 2.86 m/uL (3.80-5.40); WBC 8.9 k/uL (3.8-10.6)
[2018-06-29] MEDS ORDERED: AMOXIC-POT CLAV 875-125MG 1 EACH TAB PO SCH (09:00)
[2018-06-29 09:05] LABS: Platelet Count 705 k/uL (150-450)
[2018-06-29 10:55] VITALS: PULSE 88
[2018-06-29 11:46] VITALS: BMI 24.3
--- NOTE | 2018-06-30 08:41 | DS ---
DISCHARGE SUMMARY DATE OF ADMISSION: June 17, 2018 DATE OF DISCHARGE: June 29, 2018. FINAL DIAGNOSES: 1. Severe sepsis, combination of urinary tract infection from cystitis. Cultures growing Staphylococcus Simulans and aspiration pneumonia bilateral. 2. Blood cultures positive for Staphylococcus capitis. 3. Acute hypoxic respiratory failure. The patient did require BiPAP. 4. Acute lactic acidosis. 5. Severe hypokalemia. 6. Acute kidney injury probably acute tubular necrosis from sepsis. 7. Pancytopenia due to sepsis. 8. Developmental delay. 9. Parkinson's disorder, chronic. 10.Schizoaffective disorder, chronic. 11.Chronic medical debility. 12.Essential hypertension. 13.Hyperlipidemia. 14.Status post septic shock. The patient did get pressors. 15.Acute metabolic encephalopathy, multifactorial, resolved. 16.CODE STATUS: FULL CODE. HOSPITAL COURSE: This patient who lives with realtime reporter, follows with [facility] and followed by the public guardian's office. The patient gets a pureed diet with assistance. The patient is pretty much wheelchair-bound and does pivot. The patient can get out a simple communication. Does wear briefs. The patient presented with UTI, aspiration pneumonia, septic, hypoxic, was in the ICU. Cultures were positive as above. By the time patient is doing really well, awake, able to answer questions. The patient did go undergo a modified barium swallow. The patient did take a pureed diet. Doing overall much better. The patient also had a 2-D echocardiogram that showed severe mitral regurgitation, some element of secondary pulmonary hypertension. PHYSICAL EXAMINATION: Temperature 98.1, pulse 92, respiration 24, blood pressure 150/53, pulse ox 91 percent on room air. Lungs fair entry. The patient is able answer simple questions. INVESTIGATIONS: White count 8.9, hemoglobin is 8, platelets 705. The patient did have an ALLERGIC REACTION TO BACTRIM that was discontinued. DISCHARGE MEDICATIONS: 1. Ventolin q.i.d. 2. Aspirin 81 mg a day. 3. Cogentin 0.5 mg b.i.d. 4. Depakote 250 mg p.o. daily, 500 mg p.o. daily. 5. Risperdal 1 mg p.o. b.i.d. 6. Lipitor 5 mg p.o. daily. 7. Pulmicort 0.25 b.i.d. 8. Cranberry 200 mg p.o. daily. 9. Iron 325 p.o. b.i.d. 10.Synthroid 125 mcg p.o. daily. 11.Lasix 40 mg p.o. daily. 12.Augmentin 875 1 tablet p.o. q.12h 10 tablets. Diet instructions were given as to be followed as per speech. The patient is to use thickener with meals. Discontinued medications include: Meloxicam, sodium chloride tablets, Bactrim DS, Mucinex, omeprazole, Lasix. Follow up with [facility] and [place], and also followup with [facility] next week. The patient has got home care at home through [facility]. EILEEN / HUNTER: [id number] /
== END 2018-06-29 15:17 | disposition home health service (06) | DRG 871 ==
LOC: EEVIPCON 23:02 → EC 23:02 → 2SICU 06-17 04:47 → 4MS4W 06-26 13:24
PROVIDERS: ADMIT Hospitalist; ATTEND Hospitalist
PROC: 06HY33Z Insertion of Infusion Device into Lower Vein, Percutaneous Approach (ICD-10-PCS; principal; 2018-06-16)
PROC: 03HY32Z Insertion of Monitoring Device into Upper Artery, Percutaneous Approach (ICD-10-PCS; 2018-06-17)
PROC: 4A133BC Monitoring of Arterial Pressure, Coronary, Percutaneous Approach (ICD-10-PCS; 2018-06-17)
DX: A41.1 Sepsis due to other specified staphylococcus (principal); R65.21 Severe sepsis with septic shock; G93.41 Metabolic encephalopathy; J69.0 Pneumonitis due to inhalation of food and vomit; J96.01 Acute respiratory failure with hypoxia; N17.0 Acute kidney failure with tubular necrosis; D61.818 Other pancytopenia; E87.4 Mixed disorder of acid-base balance; G91.9 Hydrocephalus, unspecified; I50.32 Chronic diastolic (congestive) heart failure; N30.00 Acute cystitis without hematuria; I42.9 Cardiomyopathy, unspecified; G20 Parkinson's disease; I11.0 Hypertensive heart disease with heart failure; I27.29 Other secondary pulmonary hypertension; D70.3 Neutropenia due to infection; F25.9 Schizoaffective disorder, unspecified; R13.10 Dysphagia, unspecified; G40.909 Epilepsy, unspecified, not intractable, without status epilepticus; I34.0 Nonrheumatic mitral (valve) insufficiency; I34.1 Nonrheumatic mitral (valve) prolapse; D64.9 Anemia, unspecified; E03.9 Hypothyroidism, unspecified; E16.2 Hypoglycemia, unspecified; E78.5 Hyperlipidemia, unspecified; E87.6 Hypokalemia; F32.9 Major depressive disorder, single episode, unspecified; F79 Unspecified intellectual disabilities; R21 Rash and other nonspecific skin eruption; R62.50 Unspecified lack of expected normal physiological development in childhood; R26.9 Unspecified abnormalities of gait and mobility; Z79.82 Long term (current) use of aspirin; Z79.899 Other long term (current) drug therapy; Z79.890 Hormone replacement therapy; Z87.891 Personal history of nicotine dependence; Z99.3 Dependence on wheelchair; Z87.01 Personal history of pneumonia (recurrent); Z96.60 Presence of unspecified orthopedic joint implant
CPT/HCPCS: 36415; 36556; 36600; 51702; 70450; 71045; 71250; 74018; 74230; 76604; 80048; 80053; 80202; 81001; 82140; 82533; 82550; 82553; 82805; 83605; 83735; 83880; 84100; 84132; 84443; 84484; 85025; 85027; 85610; 85730; 87040; 87077; 87086; 87186; 93005; 93306; 94640; 96361; 96365; 96366; 96367; 96368; 99291

== ENCOUNTER → 2018-07-20 | Outpatient (CLI) | payer MEDICARE, OTHER ==
--- NOTE | 2018-07-20 10:27 | XR ---
EXAMINATION TYPE: XR chest 2V DATE OF EXAM: 07/20/2018 COMPARISON: 06/26/2018 HISTORY: Altered mental status TECHNIQUE: Frontal and lateral views of the chest are obtained. FINDINGS: There is mild interstitial pulmonary edema. Cardia mediastinal silhouette is upper limits of normal in size. There is haziness of the left hemidiaphragm slightly improved from the prior of with no sizable pleural effusion on the lateral view. Bridging anterior osteophytes are noted of the thoracic spine with exaggerated thoracic kyphosis. IMPRESSION: 1. Mild interstitial pulmonary edema. 2. Left basilar airspace disease is slightly improved the prior of 06/26/2018 and could represent atel ectasis, confluent pulmonary edema or persistent pneumonia.
--- NOTE | 2018-07-20 10:32 | XR ---
EXAMINATION TYPE: XR abdomen complete w decub DATE OF EXAM: 07/20/2018 COMPARISON: 06/18/2018 HISTORY: Periumbilical abdominal pain and altered mental status. TECHNIQUE: Supine, upright, and left side down lateral decubitus views of the abdomen are obtained. FINDINGS: There is a large right hemicolonic and moderate left hemicolonic stool burden. Splenic arterial calci fications are similar to the prior. There is diffuse osseous demineralization and moderate multilevel degenerative change of the spine. Likely posttraumatic deformity is seen of the right femur, surgica lly fixated. Possible 7 mm left renal calculus is noted. New density overlying the pubic symphysis co uld be external to the patient. Multiple phleboliths are noted within the pelvis. Atherosclerosis is also seen. IMPRESSION: 1. Overall moderate to severe colonic fecal burden. Nonobstructive bowel gas pattern. 2. Possible 7 mm left renal calculus.
== END | disposition home or self-care (01) ==
LOC: RADXRMAIN 09:42
DX: J81.1 Chronic pulmonary edema (principal); R10.33 Periumbilical pain; R41.0 Disorientation, unspecified
CPT/HCPCS: 71046; 74021

== ENCOUNTER 2018-07-24 14:53 | Inpatient (IN) | payer MEDICARE, OTHER ==
[2018-07-24] MEDS ORDERED: IPRATROPIUM-ALBUTEROL 3 ML NEB INHALATION STA (15:22)
[2018-07-24] MEDS ORDERED: LEVOFLOXACIN 750MG-D5W PMX 750 MG in DEXTROSE/WATER 1 150ML.BAG IVPB STA (15:23)
[2018-07-24] MEDS ORDERED: PIPERACILLIN-TAZOBACTAM 3.375 GM in SODIUM CHLORIDE 0.9% 100 ML IVPB STA (15:23)
[2018-07-24] MEDS ORDERED: VANCOMYCIN IV PER PHARMACY 1 EACH MISC MISCELLANE PRN (15:34)
--- NOTE | 2018-07-24 15:39 | ED ---
Altered Mental Status HPI - General Source: EMS, RN notes reviewed, old records reviewed Mode of arrival: EMS Limitations: altered mental status <Kaylie Landry - Last Filed: 07/24/18 15:39> <Kevin Vogel - Last Filed: 07/24/18 17:20> - General Chief Complaint: Altered Mental Status Stated Complaint: Altered mental status Time Seen by Provider: 07/24/18 14:59 - History of Present Illness Initial Comments: Marily a 78-year-old female who presents emergency Department with at-home nursing staff via EMS. They brought her in for complaints of altered mental status. Patient is normally talkative and responsive according to staff. They state that over the past few days she's had a significant decline in her mental status and mobility. The report that she's had a significant productive cough. She is normally a 1 person assist and is required 2 people to assist with transferring. Patient was recently admitted for severe sepsis and pneumonia. They report Patient has history of CHF, no pneumonia, sepsis, Parkinson's disease, and schizophrenia. Nursing staff at home was unable to get a temperature on the Patient. (Kaylie Landry) Patient care was handed off to me. Briefly, patient is 78-year-old female who is past medical history of severe sepsis. She is discharged. She was thought to have resistant pulmonary infection. Initial vital signs showed severe hypothermia. While in the ER. Patient's blood pressure began to decline. Troponin catheter was placed in the left IJ. Blood pressure was improved patient was intubated using delayed sequence inpatient. Patient tolerated intubation well. Given broad spectrum antibiotics. Plan care bedside ultrasound was performed. Patient did have reduced ventricular filling likely secondary to dehydration. She'll sit did have respiratory variation to the inferior vena cava also supporting dehydration.Laboratory evaluation obtained. Leukocytosis of 31.0. Rest of CBC unremarkable. Coag panel unremarkable. Lactic acidosis of 4.0. Urinalysis unremarkable. Influenza test negative. Chest x-ray pending. Chest x-ray shows middle lobe infiltrate. There intubation appears to be in good position and triple lumen catheter appears to be good position. No pneumothorax. (Kevin Vogel) - Related Data Home Medications Medication Instructions Recorded Confirmed Albuterol Nebulized [Ventolin 1 applic INHALATION RT-QID 09/09/14 07/24/18 Nebulized] Aspirin 81 mg PO DAILY 09/09/14 07/24/18 Benztropine Mesylate [Cogentin] 0.5 mg PO BID 09/09/14 07/24/18 risperiDONE [RisperDAL] 1 mg PO BID 09/09/14 07/24/18 Atorvastatin [Lipitor] 5 mg PO DAILY 06/16/18 07/24/18 Budesonide [Pulmicort] 0.25 mg INHALATION RT-BID 06/16/18 07/24/18 Cranberry Fruit Extract [Cranberry] 200 mg PO DAILY 06/16/18 07/24/18 Ferrous Sulfate [Iron] 325 mg PO BID 06/16/18 07/24/18 Levothyroxine Sodium [Synthroid] 125 mcg PO DAILY 06/16/18 07/24/18 Acetaminophen Tab [Tylenol Tab] 500 mg PO Q6H PRN 07/24/18 07/24/18 Divalproex Sodium 250 mg PO BID 07/24/18 07/24/18 Furosemide [Lasix] 20 mg PO DAILY 07/24/18 07/24/18 Meloxicam 7.5 mg PO DAILY 07/24/18 07/24/18 Naproxen Sodium [Aleve] 220 mg PO DAILY PRN 07/24/18 07/24/18 Allergies Allergy/AdvReac Type Severity Reaction Status Date / Time sulfamethoxazole Allergy Rash/Hives Verified 07/24/18 15:44 [From Bactrim] trimethoprim [From Bactrim] Allergy Rash/Hives Verified 07/24/18 15:44 Review of Systems ROS Other: All systems not noted in ROS Statement are negative. <Kaylie Landry - Last Filed: 07/24/18 15:39> ROS Other: All systems not noted in ROS Statement are negative. <Kevin Vogel - Last Filed: 07/24/18 17:20> ROS Statement: Those systems with pertinent positive or pertinent negative responses have been documented in the HPI. Past Medical History Past Medical History: Heart Failure, Hyperlipidemia, Hypertension, Mitral Valve Prolapse (MVP), Seizure Disorder, Thyroid Disorder Additional Past Medical History / Comment(s): PARKINSON'S, MENTAL RETARDATION, UNKNOWN WHEN LAST SEIZURE, USES A WHEELCHAIR, RT ARM IN BANDAGE WITH SLING. CAREGIVER STATES ABLE TO READ AND WRITE, DIFFICULTY WITH COMPREHENSION. History of Any Multi-Drug Resistant Organisms: None Reported Past Surgical History: Joint Replacement Additional Past Surgical History / Comment(s): RIGHT HIP, ORIF OF RIGHT ELBOW (). Past Anesthesia/Blood Transfusion Reactions: No Reported Reaction Past Psychological History: Depression, Schizophrenia Smoking Status: Former smoker Past Alcohol Use History: None Reported Past Drug Use History: None Reported <Kaylie Landry - Last Filed: 07/24/18 15:39> General Exam Limitations: altered mental status General appearance: obtunded Head exam: Present: atraumatic, normocephalic, normal inspection Eye exam: Present: normal appearance, PERRL, EOMI. Absent: scleral icterus, conjunctival injection, periorbital swelling ENT exam: Present: normal exam, mucous membranes moist Neck exam: Present: normal inspection. Absent: tenderness, meningismus, lymphadenopathy Respiratory exam: Present: wheezes, rhonchi, decreased breath sounds. Absent: normal lung sounds bilaterally, respiratory distress, rales, stridor Cardiovascular Exam: Present: regular rate, normal rhythm, normal heart sounds. Absent: systolic murmur, diastolic murmur, rubs, gallop, clicks GI/Abdominal exam: Present: soft, normal bowel sounds. Absent: distended, tenderness, guarding, rebound, rigid Extremities exam: Present: full ROM, normal capillary refill, other (Patient has significant contusion over the right breast right axilla and upper arm.). Absent: normal inspection, tenderness, pedal edema, joint swelling, calf tenderness Back exam: Present: normal inspection Neurological exam: Present: alert Psychiatric exam: Present: normal affect, normal mood Skin exam: Present: warm, dry, intact, normal color. Absent: rash <Kaylie Landry - Last Filed: 07/24/18 15:39> <Kevin Vogel - Last Filed: 07/24/18 17:20> - General Exam Comments Initial Comments: Patient is a 78-year-old female. Patient will respond to commands but is nonverbal. Patient appears obtunded. Delayed responses. Patient's rectal temperature on examination was 89.5. Heart rate 78. Respiratory rate 18. Blood pressure 129/76. She is 94% on room air. (Kaylie Landry) Course <Kaylie Landry - Last Filed: 07/24/18 15:39> <Kevin Vogel D - Last Filed: 07/24/18 17:20> Vital Signs 07/24/18 07/24/18 07/24/18 14:54 15:30 15:40 Temperature 89.9 F L Pulse Rate 78 55 L 59 L Respiratory 18 16 14 Rate Blood Pressure 129/76 129/76 123/51 O2 Sat by Pulse 94 L 97 90 L Oximetry 07/24/18 07/24/18 07/24/18 16:04 16:10 16:15 Temperature Pulse Rate 69 68 55 L Respiratory 8 L 10 L 12 Rate Blood Pressure 83/43 123/60 53/39 O2 Sat by Pulse 97 95 94 L Oximetry 07/24/18 07/24/18 07/24/18 16:29 16:35 16:51 Temperature 90.1 F L Pulse Rate 63 62 67 Respiratory 10 L 12 14 Rate Blood Pressure 56/31 77/37 83/50 O2 Sat by Pulse 95 86 L 97 Oximetry 07/24/18 17:01 Temperature Pulse Rate 64 Respiratory 16 Rate Blood Pressure 103/47 O2 Sat by Pulse 100 Oximetry - Reevaluation(s) Reevaluation #1: 07/24/18 15:39 Patient is on have a rectal temp of 89.5. She was started on rapid warming blanket and warmed fluids. (Kaylie Landry) Procedures - Central Line Placement Left IJ Consent Obtained: verbal consent Patient Placed on Monitor/Pulse Ox: Yes MD Prep: mask, gown, gloves Central Line Prep: Povidone-Iodine 1% Local Anesthesia Used: Lidocaine 1% Ultrasound Used for Placement: Yes Central Line Lumen Inserted: triple Bloods Obtained for Lab: No Central Line Position: good blood return, all ports aspirated, flushed, capped, sutured in place with 3-0 nylon Dressing Applied: Tegaderm Post Procedure X-Ray: tip of catheter in good position Patient Tolerated Procedure: well - Intubation Sedative: Etomidate Paralytic: Rocuronium Laryngoscope: Cristian Size: 3 ET Tube Size: 7 ET Tube Uncuffed: No Tube Secured Depth (cm): 24 Tube Secured Location: teeth Tube Placement Confirmation: visualized tube passing through cords Patient Tolerated Procedure: well Intubation Complications: none <Kevin Vogel - Last Filed: 07/24/18 17:20> Medical Decision Making - Radiology Data Radiology results: report reviewed <Kaylie Landry - Last Filed: 07/24/18 15:39> - Lab Data Result diagrams: 07/24/18 15:37 07/24/18 15:37 <Kevin Vogel Asuncion - Last Filed: 07/24/18 17:20> - Lab Data Lab Results 07/24/18 07/24/18 07/24/18 Range/Units 15:37 15:37 15:37 WBC 31.0 H (3.8-10.6) k/uL RBC 3.42 L (3.80-5.40) m/uL Hgb 9.6 L D (11.4-16.0) gm/dL Hct 30.6 L (34.0-46.0) % MCV 89.5 (80.0-100.0) fL MCH 28.0 (25.0-35.0) pg MCHC 31.3 (31.0-37.0) g/dL RDW 19.5 H (11.5-15.5) % Plt Count 167 D (150-450) k/uL Neutrophils % (Manual) 63 % Band Neutrophils % 24 % Lymphocytes % (Manual) 6 % Monocytes % (Manual) 2 % Metamyelocytes % 3 % Myelocytes % 3 % Neutrophils # (Manual) 26.90 H (1.3-7.7) k/uL Lymphocytes # (Manual) 1.86 (1.0-4.8) k/uL Monocytes # (Manual) 0.62 (0-1.0) k/uL Metamyelocytes # (Man) 0.93 H (0) k/uL Myelocytes # (Manual) 0.93 H (0) k/uL Nucleated RBCs 0 (0-0) /100 WBC Manual Slide Review Performed Toxic Granulation Present Toxic Vacuolation Present Large Platelets Present Polychromasia Present Hypochromasia Slight Poikilocytosis (manual Present Anisocytosis Slight PT (9.0-12.0) sec INR (<1.2) APTT (22.0-30.0) sec Sodium 136 L (137-145) mmol/L Potassium 3.8 (3.5-5.1) mmol/L Chloride 94 L (98-107) mmol/L Carbon Dioxide 29 (22-30) mmol/L Anion Gap 13 mmol/L BUN 23 H (7-17) mg/dL Creatinine 0.70 (0.52-1.04) mg/dL Est GFR (CKD-EPI)AfAm >90 (>60 ml/min/1.73 sqM) Est GFR (CKD-EPI)NonAf 84 (>60 ml/min/1.73 sqM) Glucose 104 H (74-99) mg/dL POC Glucose (mg/dL) (75-99) mg/dL POC Glu Guide Domestic Tour ID Plasma Lactic Acid Jason (0.7-2.0) mmol/L Calcium 9.1 (8.4-10.2) mg/dL Total Bilirubin 0.5 (0.2-1.3) mg/dL AST 62 H (14-36) U/L ALT 50 (9-52) U/L Alkaline Phosphatase 138 H (38-126) U/L Ammonia (<30) umol/L Total Creatine Kinase 376 H (30-135) U/L CK-MB (CK-2) 9.3 H (0.0-2.4) ng/mL CK-MB (CK-2) Rel Index 2.5 Troponin I <0.012 (0.000-0.034) ng/mL Total Protein 5.8 L (6.3-8.2) g/dL Albumin 2.8 L (3.5-5.0) g/dL TSH 1.600 (0.465-4.680) mIU/L Urine Color Urine Appearance (Clear) Urine pH (5.0-8.0) Ur Specific Gonzales (1.001-1.035) Urine Protein (Negative) Urine Glucose (UA) (Negative) Urine Ketones (Negative) Urine Blood (Negative) Urine Nitrite (Negative) Urine Bilirubin (Negative) Urine Urobilinogen (<2.0) mg/dL Ur Leukocyte Esterase (Negative) Urine Opiates Screen (NotDetected) Ur Oxycodone Screen (NotDetected) Urine Methadone Screen (NotDetected) Ur Propoxyphene Screen (NotDetected) Ur Barbiturates Screen (NotDetected) U Tricyclic Antidepress (NotDetected) Ur Phencyclidine Scrn (NotDetected) Ur Amphetamines Screen (NotDetected) U Methamphetamines Scrn (NotDetected) U Benzodiazepines Scrn (NotDetected) Urine Cocaine Screen (NotDetected) U Marijuana (THC) Screen (NotDetected) Influenza Type A RNA (Not Detectd) Influenza Type B (PCR) (Not Detectd) 07/24/18 07/24/18 07/24/18 Range/Units 15:37 15:37 15:37 WBC (3.8-10.6) k/uL RBC (3.80-5.40) m/uL Hgb (11.4-16.0) gm/dL Hct (34.0-46.0) % MCV (80.0-100.0) fL MCH (25.0-35.0) pg MCHC (31.0-37.0) g/dL RDW (11.5-15.5) % Plt Count (150-450) k/uL Neutrophils % (Manual) % Band Neutrophils % % Lymphocytes % (Manual) % Monocytes % (Manual) % Metamyelocytes % % Myelocytes % % Neutrophils # (Manual) (1.3-7.7) k/uL Lymphocytes # (Manual) (1.0-4.8) k/uL Monocytes # (Manual) (0-1.0) k/uL Metamyelocytes # (Man) (0) k/uL Myelocytes # (Manual) (0) k/uL Nucleated RBCs (0-0) /100 WBC Manual Slide Review Toxic Granulation Toxic Vacuolation Large Platelets Polychromasia Hypochromasia Poikilocytosis (manual Anisocytosis PT 10.0 (9.0-12.0) sec INR 0.9 (<1.2) APTT 26.6 (22.0-30.0) sec Sodium (137-145) mmol/L Potassium (3.5-5.1) mmol/L Chloride (98-107) mmol/L Carbon Dioxide (22-30) mmol/L Anion Gap mmol/L BUN (7-17) mg/dL Creatinine (0.52-1.04) mg/dL Est GFR (CKD-EPI)AfAm (>60 ml/min/1.73 sqM) Est GFR (CKD-EPI)NonAf (>60 ml/min/1.73 sqM) Glucose (74-99) mg/dL POC Glucose (mg/dL) (75-99) mg/dL POC Glu Guide Domestic Tour ID Plasma Lactic Acid Jason 4.0 H* (0.7-2.0) mmol/L Calcium (8.4-10.2) mg/dL Total Bilirubin (0.2-1.3) mg/dL AST (14-36) U/L ALT (9-52) U/L Alkaline Phosphatase (38-126) U/L Ammonia (<30) umol/L Total Creatine Kinase (30-135) U/L CK-MB (CK-2) (0.0-2.4) ng/mL CK-MB (CK-2) Rel Index Troponin I (0.000-0.034) ng/mL Total Protein (6.3-8.2) g/dL Albumin (3.5-5.0) g/dL TSH (0.465-4.680) mIU/L Urine Color Urine Appearance (Clear) Urine pH (5.0-8.0) Ur Specific Gonzales (1.001-1.035) Urine Protein (Negative) Urine Glucose (UA) (Negative) Urine Ketones (Negative) Urine Blood (Negative) Urine Nitrite (Negative) Urine Bilirubin (Negative) Urine Urobilinogen (<2.0) mg/dL Ur Leukocyte Esterase (Negative) Urine Opiates Screen (NotDetected) Ur Oxycodone Screen (NotDetected) Urine Methadone Screen (NotDetected) Ur Propoxyphene Screen (NotDetected) Ur Barbiturates Screen (NotDetected) U Tricyclic Antidepress (NotDetected) Ur Phencyclidine Scrn (NotDetected) Ur Amphetamines Screen (NotDetected) U Methamphetamines Scrn (NotDetected) U Benzodiazepines Scrn (NotDetected) Urine Cocaine Screen (NotDetected) U Marijuana (THC) Screen (NotDetected) Influenza Type A RNA Not Detected (Not Detectd) Influenza Type B (PCR) Not Detected (Not Detectd) 07/24/18 07/24/18 07/24/18 Range/Units 16:16 16:35 16:43 WBC (3.8-10.6) k/uL RBC (3.80-5.40) m/uL Hgb (11.4-16.0) gm/dL Hct (34.0-46.0) % MCV (80.0-100.0) fL MCH (25.0-35.0) pg MCHC (31.0-37.0) g/dL RDW (11.5-15.5) % Plt Count (150-450) k/uL Neutrophils % (Manual) % Band Neutrophils % % Lymphocytes % (Manual) % Monocytes % (Manual) % Metamyelocytes % % Myelocytes % % Neutrophils # (Manual) (1.3-7.7) k/uL Lymphocytes # (Manual) (1.0-4.8) k/uL Monocytes # (Manual) (0-1.0) k/uL Metamyelocytes # (Man) (0) k/uL Myelocytes # (Manual) (0) k/uL Nucleated RBCs (0-0) /100 WBC Manual Slide Review Toxic Granulation Toxic Vacuolation Large Platelets Polychromasia Hypochromasia Poikilocytosis (manual Anisocytosis PT (9.0-12.0) sec INR (<1.2) APTT (22.0-30.0) sec Sodium (137-145) mmol/L Potassium (3.5-5.1) mmol/L Chloride (98-107) mmol/L Carbon Dioxide (22-30) mmol/L Anion Gap mmol/L BUN (7-17) mg/dL Creatinine (0.52-1.04) mg/dL Est GFR (CKD-EPI)AfAm (>60 ml/min/1.73 sqM) Est GFR (CKD-EPI)NonAf (>60 ml/min/1.73 sqM) Glucose (74-99) mg/dL POC Glucose (mg/dL) 113 H (75-99) mg/dL POC Glu Guide Domestic Tour ID Atkinson, Rosalee Plasma Lactic Acid Jason (0.7-2.0) mmol/L Calcium (8.4-10.2) mg/dL Total Bilirubin (0.2-1.3) mg/dL AST (14-36) U/L ALT (9-52) U/L Alkaline Phosphatase (38-126) U/L Ammonia <9 (<30) umol/L Total Creatine Kinase (30-135) U/L CK-MB (CK-2) (0.0-2.4) ng/mL CK-MB (CK-2) Rel Index Troponin I (0.000-0.034) ng/mL Total Protein (6.3-8.2) g/dL Albumin (3.5-5.0) g/dL TSH (0.465-4.680) mIU/L Urine Color Yellow Urine Appearance Clear (Clear) Urine pH 5.5 (5.0-8.0) Ur Specific Gonzales 1.010 (1.001-1.035) Urine Protein Negative (Negative) Urine Glucose (UA) Negative (Negative) Urine Ketones Negative (Negative) Urine Blood Negative (Negative) Urine Nitrite Negative (Negative) Urine Bilirubin Negative (Negative) Urine Urobilinogen <2.0 (<2.0) mg/dL Ur Leukocyte Esterase Negative (Negative) Urine Opiates Screen (NotDetected) Ur Oxycodone Screen (NotDetected) Urine Methadone Screen (NotDetected) Ur Propoxyphene Screen (NotDetected) Ur Barbiturates Screen (NotDetected) U Tricyclic Antidepress (NotDetected) Ur Phencyclidine Scrn (NotDetected) Ur Amphetamines Screen (NotDetected) U Methamphetamines Scrn (NotDetected) U Benzodiazepines Scrn (NotDetected) Urine Cocaine Screen (NotDetected) U Marijuana (THC) Screen (NotDetected) Influenza Type A RNA (Not Detectd) Influenza Type B (PCR) (Not Detectd) 07/24/18 Range/Units 16:43 WBC (3.8-10.6) k/uL RBC (3.80-5.40) m/uL Hgb (11.4-16.0) gm/dL Hct (34.0-46.0) % MCV (80.0-100.0) fL MCH (25.0-35.0) pg MCHC (31.0-37.0) g/dL RDW (11.5-15.5) % Plt Count (150-450) k/uL Neutrophils % (Manual) % Band Neutrophils % % Lymphocytes % (Manual) % Monocytes % (Manual) % Metamyelocytes % % Myelocytes % % Neutrophils # (Manual) (1.3-7.7) k/uL Lymphocytes # (Manual) (1.0-4.8) k/uL Monocytes # (Manual) (0-1.0) k/uL Metamyelocytes # (Man) (0) k/uL Myelocytes # (Manual) (0) k/uL Nucleated RBCs (0-0) /100 WBC Manual Slide Review Toxic Granulation Toxic Vacuolation Large Platelets Polychromasia Hypochromasia Poikilocytosis (manual Anisocytosis PT (9.0-12.0) sec INR (<1.2) APTT (22.0-30.0) sec Sodium (137-145) mmol/L Potassium (3.5-5.1) mmol/L Chloride (98-107) mmol/L Carbon Dioxide (22-30) mmol/L Anion Gap mmol/L BUN (7-17) mg/dL Creatinine (0.52-1.04) mg/dL Est GFR (CKD-EPI)AfAm (>60 ml/min/1.73 sqM) Est GFR (CKD-EPI)NonAf (>60 ml/min/1.73 sqM) Glucose (74-99) mg/dL POC Glucose (mg/dL) (75-99) mg/dL POC Glu Guide Domestic Tour ID Plasma Lactic Acid Jason (0.7-2.0) mmol/L Calcium (8.4-10.2) mg/dL Total Bilirubin (0.2-1.3) mg/dL AST (14-36) U/L ALT (9-52) U/L Alkaline Phosphatase (38-126) U/L Ammonia (<30) umol/L Total Creatine Kinase (30-135) U/L CK-MB (CK-2) (0.0-2.4) ng/mL CK-MB (CK-2) Rel Index Troponin I (0.000-0.034) ng/mL Total Protein (6.3-8.2) g/dL Albumin (3.5-5.0) g/dL TSH (0.465-4.680) mIU/L Urine Color Urine Appearance (Clear) Urine pH (5.0-8.0) Ur Specific Gonzales (1.001-1.035) Urine Protein (Negative) Urine Glucose (UA) (Negative) Urine Ketones (Negative) Urine Blood (Negative) Urine Nitrite (Negative) Urine Bilirubin (Negative) Urine Urobilinogen (<2.0) mg/dL Ur Leukocyte Esterase (Negative) Urine Opiates Screen Not Detected (NotDetected) Ur Oxycodone Screen Not Detected (NotDetected) Urine Methadone Screen Not Detected (NotDetected) Ur Propoxyphene Screen Not Detected (NotDetected) Ur Barbiturates Screen Not Detected (NotDetected) U Tricyclic Antidepress Not Detected (NotDetected) Ur Phencyclidine Scrn Not Detected (NotDetected) Ur Amphetamines Screen Not Detected (NotDetected) U Methamphetamines Scrn Not Detected (NotDetected) U Benzodiazepines Scrn Not Detected (NotDetected) Urine Cocaine Screen Not Detected (NotDetected) U Marijuana (THC) Screen Not Detected (NotDetected) Influenza Type A RNA (Not Detectd) Influenza Type B (PCR) (Not Detectd) 07/24/18 15:39 EKG performed at 1515 shows normal sinus rhythm ST and T-wave abnormality considering inferior and anterolateral ischemia. Ventricular rate of 69 beats were minute. Pulse 166 most seconds. QRS duration 74 ms. QT QTc is 360/385 ms. (Kaylie Landry) Critical Care Time Critical Care Time: Yes Total Critical Care Time: 31 <Kevin Vogel - Last Filed: 07/24/18 17:20> Disposition <Kaylie Landry - Last Filed: 07/24/18 15:39> Decision Time: 17:20 <Kevin Vogel - Last Filed: 07/24/18 17:20> Clinical Impression: Septic shock Disposition: ADMITTED IP TO THIS [facility] Condition: Critical Referrals: Tracey Means MD [Primary Care Provider] - 1-2 days
[2018-07-24] MEDS ORDERED: VANCOMYCIN 1,000 MG in SODIUM CHLORIDE 0.9% 250 ML IVPB STA (15:44)
[2018-07-24 15:57] LABS: Anisocytosis Slight; HCT 30.6 % (34.0-46.0); Hypochromasia Slight; MCHC 31.3 g/dL (31.0-37.0); MCV 89.5 fL (80.0-100.0); RBC 3.42 m/uL (3.80-5.40); RDW 19.5 % (11.5-15.5)
[2018-07-24] MEDS: SODIUM CHLORIDE 0.9% 500 ML 500 ML IV SCH (15:57)
[2018-07-24] MEDS: SODIUM CHLORIDE 0.9% 1,000 ML IV SCH ×2 (16:01→21:20)
[2018-07-24 16:08] LABS: INR 0.9 (<1.2); Partial Thromboplastin Time 26.6 sec (22.0-30.0)
[2018-07-24 16:10] LABS: HGB 9.6 gm/dL (11.4-16.0); Platelet Count 167 k/uL (150-450)
[2018-07-24 16:14] LABS: Creatine Kinase 376 U/L (30-135)
[2018-07-24] MEDS ORDERED: EPINEPHrine 1 MG/ML 1 ML AMP IV STA ×2 (16:15→16:32)
[2018-07-24 16:16] LABS: ALT 50 U/L (9-52); AST 62 U/L (14-36); Albumin 2.8 g/dL (3.5-5.0); Alkaline Phosphatase 138 U/L (38-126); Anion Gap 13 mmol/L; Blood Urea Nitrogen 23 mg/dL (7-17); Calcium 9.1 mg/dL (8.4-10.2); Carbon Dioxide 29 mmol/L (22-30); Chloride 94 mmol/L (98-107); Glucose 104 mg/dL (74-99); Potassium 3.8 mmol/L (3.5-5.1); Sodium 136 mmol/L (137-145); Total Bilirubin 0.5 mg/dL (0.2-1.3); Total Protein 5.8 g/dL (6.3-8.2)
[2018-07-24] MEDS ORDERED: SODIUM CHLORIDE 0.9% 1,000 ML IV ONE ×2 (16:25→23:15)
[2018-07-24 16:26] LABS: Band Neutrophils % 24 %; Lymphocytes # (M) 1.86 k/uL (1.0-4.8); Metamyelocytes # (M) 0.93 k/uL (0); Metamyelocytes % 3 %; Monocytes # (M) 0.62 k/uL (0-1.0); Myelocytes # (M) 0.93 k/uL (0); Myelocytes % 3 %; Neutrophils % (M) 63 %; Nucleated Red Blood Cells 0 /100 WBC (0-0); Total Cells Counted 200; Toxic Granulation Present; Toxic Vacuolation Present
[2018-07-24 16:27] LABS: Creatine Kinase MB 9.3 ng/mL (0.0-2.4); Large Platelets Present; Poikilocytosis (M) Present; Troponin I <0.012 ng/mL (0.000-0.034)
[2018-07-24 16:28] LABS: Polychromasia Present
[2018-07-24] MEDS: NOREPINEPHRINE 4 MG in SODIUM CHLORIDE 0.9% 250 ML IV SCH ×2 (16:37→22:57)
[2018-07-24 16:50] LABS: Glucose,Whole Blood 113 mg/dL (75-99)
[2018-07-24 16:56] LABS: Appearance,Urine Clear (Clear); Bilirubin,Urine Negative (Negative); Blood,Urine Negative (Negative); Color,Urine Yellow; Glucose,Urine (UA) Negative (Negative); Ketones,Urine Negative (Negative); Leukocyte Esterase,Urine Negative (Negative); Nitrite,Urine Negative (Negative); PH, Urine 5.5 (5.0-8.0); Protein,Urine Negative (Negative); Urobilinogen,Urine <2.0 mg/dL (<2.0)
[2018-07-24] MEDS ORDERED: ETOMIDATE 2 MG/ML 10 ML VIAL IVP STA (17:03)
[2018-07-24] MEDS ORDERED: ROCURONIUM BROMIDE 10 MG/ML 10 ML VIAL IV STA (17:03)
[2018-07-24 17:09] LABS: Amphetamine Screen,Urine Not Detected (NotDetected); Barbiturate Screen,Urine Not Detected (NotDetected); Benzodiazepines Screen,Urine Not Detected (NotDetected); Cocaine Screen,Urine Not Detected (NotDetected); Methadone Screen, Urine Not Detected (NotDetected); Opiate Screen,Urine Not Detected (NotDetected); Oxycodone Screen, Urine Not Detected (NotDetected); Phencyclidine Screen,Urine Not Detected (NotDetected); Tricyclic Antidepressant,Urine Not Detected (NotDetected); Urn Cannabinoid Scrn Not Detected (NotDetected)
[2018-07-24] MEDS ORDERED: NALOXONE 0.4 MG/ML 1 ML VIAL IV PRN (17:14)
[2018-07-24 17:18] LABS: Lipase 28 U/L (23-300)
[2018-07-24 18:03] LABS: ABG Base Excess 5.2 mmol/L; ABG HCO3 28 mmol/L (21-25); ABG PCO2 34 mmHg (35-45); ABG PH 7.52 (7.35-7.45); ABG PO2 358 mmHg (83-108); ABG TCO2 29 mmol/L (19-24)
--- NOTE | 2018-07-24 18:06 | XR ---
EXAMINATION: XR chest 1V portable DATE AND TIME: 07/24/2018 5:14 PM CLINICAL INDICATION: PHH; Fever TECHNIQUE: AP upright portable COMPARISON: 07/20/2018 at 10:00 AM FINDINGS: Support lines and catheters: Since the prior study the patient been intubated and ET tube tip superimposed 3 cm above the level of the ovidio. Left IJ central line tip superimposed over the right atrium. EKG leads. Lungs: There is a 7 cm focal dense consolidation patient in the right mid lung, with right lower and right upper ill-defined small opacity is also noted. These are new since the prior study and can correlate with a clinical diagnosis of multifocal bronchopneumonia. The study is negative for pulmonary edema. Pleural spaces: No pneumothorax. Mildly blunted left costophrenic angle suggests small left pleural effusion, simil ar when compared to the prior study. Soft tissues: Mild-moderately enlarged cardiac silhouette. IMPRESSION: INTERVAL WORSENING, WITH DEVELOPMENT OF WHAT APPEARS TO BE RIGHT-SIDED MULTIFOCAL BRONCHO PNEUMONIA
--- NOTE | 2018-07-24 18:58 | CT ---
EXAMINATION: CT brain wo con DATE AND TIME: 07/24/2018 6:44 PM CLINICAL INDICATION: PHH; Pain TECHNIQUE: Standard departmental protocol.; 1020.4; COMPARISON: 06/17/2018 FINDINGS: The calvarium is intact. There is no intracranial hemorrhage. There is no intracranial mass or mass effect. No definite new intra-axial or extra-axial attenuation defect. The and ventriculomegaly seen on the prior study is redemonstrated; this is out of proportion to the sulcal pattern and cisterns. This discrepancy can correlate with a clinical diagnosis of normal press ure hydrocephalus. The paranasal sinuses, middle ear cavities, and mastoid sinus air cells are clear. The orbits are unremarkable. IMPRESSION: 1. NO DEFINITE ACUTE PROCESS. 2. HOWEVER, FINDINGS WHICH COULD CORRELATE WITH A CLINICAL DIAGNOSIS OF NORMAL PRESSURE HYDROCEPHALU S.
[2018-07-24 19:50] LABS: Glucose,Whole Blood 103 mg/dL (75-99)
[2018-07-24] MEDS: PROPOFOL 1,000 MG in EMPTY BAG 1 BAG IV SCH (20:00)
--- NOTE | 2018-07-24 21:44 | XR ---
EXAMINATION: XR chest 1V portable DATE AND TIME: 07/24/2018 9:00 PM CLINICAL INDICATION: PHH; NG tube placement TECHNIQUE: AP semiupright portable COMPARISON: 07/24/2018 at 5:13 PM FINDINGS: ET tube tip superimposed over the mid trachea. NG tube present, coursing over the thoracic esophagus and over the stomach to have its tip caudal to the edge of the film, presumably within the gastric body or antrum. LEFT IJ CENTRAL LINE TIP SUPERIMPOSED OVER THE EXPECTED POSITION OF THE JUNCTION OF THE RIGHT ATRIUM AND RIGHT VENTRICLE, AND MAY BE BETTER PLACED IF WITHDRAWN 5 CM. Overall lung inflation on the present study is similar when compared to the prior study. There remain s airspace filling process throughout the right lung parenchyma, but less dense than the prior study. On the left, there is now silhouetting of the left hemidiaphragm presently, consistent with interval increase in the volume of left lower lobe airlessness. IMPRESSION: 1) LEFT IJ CENTRAL LINE TIP MAY BE BETTER PLACED IF WITHDRAWN 5 CM. 2) Bilateral pulmonary abnormalities. 3) No acute pleural process is evident.
[2018-07-25] MEDS ORDERED: SODIUM CHLORIDE 0.9% 500 ML 500 ML IV ONE (00:31)
[2018-07-25] MEDS: HEPARIN SODIUM,PORCINE 5,000 UNIT/ML 1 ML VIAL SQ SCH ×4 (00:35→23:17)
[2018-07-25] MEDS: NOREPINEPHRINE 4 MG in SODIUM CHLORIDE 0.9% 250 ML IV SCH ×3 (00:46→06:16)
[2018-07-25 03:49] LABS: ABG Base Excess 1.5 mmol/L; ABG HCO3 26 mmol/L (21-25); ABG PCO2 41 mmHg (35-45); ABG PH 7.41 (7.35-7.45); ABG PO2 164 mmHg (83-108); ABG TCO2 27 mmol/L (19-24)
[2018-07-25] MEDS ORDERED: SODIUM CHLORIDE 0.9% 1,000 ML IV ONE (04:24)
[2018-07-25 06:33] LABS: Anisocytosis Slight; Basophils % (A) 0 %; Eosinophils # (A) 0.1 k/uL (0-0.7); Eosinophils % (A) 0 %; HCT 24.4 % (34.0-46.0); Hypochromasia Moderate; Lymphocytes # (A) 1.4 k/uL (1.0-4.8); Lymphocytes % (A) 7 %; MCHC 31.4 g/dL (31.0-37.0); MCV 92.3 fL (80.0-100.0); Mean Platelet Volume 8.3; Monocytes # (A) 0.4 k/uL (0-1.0); Monocytes % (A) 2 %; Neutrophils % (A) 90 %; Platelet Count 124 k/uL (150-450); RBC 2.64 m/uL (3.80-5.40); RDW 19.9 % (11.5-15.5)
[2018-07-25 06:44] LABS: HGB 7.7 gm/dL (11.4-16.0)
[2018-07-25 06:52] LABS: Calcium 7.2 mg/dL (8.4-10.2); Magnesium 1.6 mg/dL (1.6-2.3); Phosphorus 3.6 mg/dL (2.5-4.5)
[2018-07-25 07:29] LABS: Potassium 3.5 mmol/L (3.5-5.1)
[2018-07-25] MEDS: VANCOMYCIN 750 MG in SODIUM CHLORIDE 0.9% 250 ML IVPB SCH ×2 (07:34→17:09)
[2018-07-25] MEDS: POTASSIUM BICARBONATE/CIT AC 20 MEQ TABLET.EFF NG-TUBE SCH ×2 (07:43→09:02)
[2018-07-25] MEDS: MAGNESIUM SULFATE-D5W PMX 1 GM in DEXTROSE/WATER 1 100ML.BAG IVPB SCH ×2 (07:43→08:57)
[2018-07-25] MEDS: CHLORHEXIDINE GLUCONATE 15 ML CUP MUCOUS MEM SCH ×2 (08:36→21:58)
[2018-07-25] MEDS: PANTOPRAZOLE 40 MG/10 ML VIAL IV SCH (08:36)
[2018-07-25] MEDS ORDERED: ACETAMINOPHEN TAB 500 MG TAB PO PRN (11:22)
--- NOTE | 2018-07-25 11:22 | P.HPIM ---
History of Present Illness H&P Date: 07/24/18 Chief Complaint: Alter mental status, respiratory failure, sepsis, dysphagia, aspiration pne 78-year-old female who has been seen Dr. Means lately who was in the hospital not too long ago with sepsis and altered mental status and sepsis seems like she had urinary tract infection from cystitis with positive blood culture for staph infection. Patient had an episode of acute hypoxic respiratory failure was on BiPAP at the time and have acute lactic acidosis with severe hypokalemia and acute kidney injury also had pancytopenia due to sepsis is known to have development delay and history of schizoaffective disorders. Patient left the hospital on June 29. Patient found by the caregiver to have significant alter mental status with decline in mobility and her respond. Not been able to transfer herself patient brought to the emergency department [facility] via EMS was seen and evaluated she was hypothermic, hypoxic, having significant shortness of breath mildly elevated troponin and blood pressure declined significantly with significant elevated lactic acid. Patient was intubated and admitted to the intensive care unit afterward for the above problem. Review of Systems CONSTITUTIONAL: On mechanical ventilation looks resting comfortably EYES: No icterus sclerae, no conjunctivitis. EARS, NOSE, MOUTH, THROAT, and FACE: No sore throat, lymphadenopathy, carotid bruits or deformity. RESPIRATORY: Positive shortness of breath cough wheezes CARDIOVASCULAR: No CP, Palpitation, PND, Orthopnea, or angina. GASTROINTESTINAL: Possible dysphagia GENITOURINARY: Negative for Hematuria or UTI, no kidney stones. Positive incontinence INTEGUMENT/BREAST: Negative for any muscular injury with mild osteoarthritis.. HEMATOLOGIC/LYMPHATIC: Negative for bleed or purpura. MUSCULOSKELTAL: Negative for Myalgia or arthralgia. NEURLOGICAL: Completely sedated on mechanical ventilation. BEHAVIORAL/PSYCH: Negative. ENDOCRINE: Negative. Past Medical History Past Medical History: Heart Failure, Hyperlipidemia, Hypertension, Mitral Valve Prolapse (MVP), Seizure Disorder, Thyroid Disorder Additional Past Medical History / Comment(s): PARKINSON'S, MENTAL RETARDATION, UNKNOWN WHEN LAST SEIZURE, USES A WHEELCHAIR, RT ARM IN BANDAGE WITH SLING. CAREGIVER STATES ABLE TO READ AND WRITE, DIFFICULTY WITH COMPREHENSION. History of Any Multi-Drug Resistant Organisms: None Reported Past Surgical History: Joint Replacement Additional Past Surgical History / Comment(s): RIGHT HIP, ORIF OF RIGHT ELBOW (). Past Anesthesia/Blood Transfusion Reactions: No Reported Reaction Past Psychological History: Depression, Schizophrenia Smoking Status: Former smoker Past Alcohol Use History: None Reported Past Drug Use History: None Reported - Past Family History Brother(s) Family Medical History: Seizure Disorder Additional Family Medical History / Comment(s): parkinsons Medications and Allergies Home Medications Medication Instructions Recorded Confirmed Type Albuterol Nebulized [Ventolin 1 applic INHALATION RT-QID 09/09/14 07/24/18 History Nebulized] Aspirin 81 mg PO DAILY 09/09/14 07/24/18 History Benztropine Mesylate [Cogentin] 0.5 mg PO BID 09/09/14 07/24/18 History risperiDONE [RisperDAL] 1 mg PO BID 09/09/14 07/24/18 History Atorvastatin [Lipitor] 5 mg PO DAILY 06/16/18 07/24/18 History Budesonide [Pulmicort] 0.25 mg INHALATION RT-BID 06/16/18 07/24/18 History Cranberry Fruit Extract [Cranberry] 200 mg PO DAILY 06/16/18 07/24/18 History Ferrous Sulfate [Iron] 325 mg PO BID 06/16/18 07/24/18 History Levothyroxine Sodium [Synthroid] 125 mcg PO DAILY 06/16/18 07/24/18 History Acetaminophen Tab [Tylenol Tab] 500 mg PO Q6H PRN 07/24/18 07/24/18 History Divalproex Sodium 250 mg PO BID 07/24/18 07/24/18 History Furosemide [Lasix] 20 mg PO DAILY 07/24/18 07/24/18 History Meloxicam 7.5 mg PO DAILY 07/24/18 07/24/18 History Naproxen Sodium [Aleve] 220 mg PO DAILY PRN 07/24/18 07/24/18 History Allergies Allergy/AdvReac Type Severity Reaction Status Date / Time sulfamethoxazole Allergy Rash/Hives Verified 07/24/18 15:44 [From Bactrim] trimethoprim [From Bactrim] Allergy Rash/Hives Verified 07/24/18 15:44 Physical Exam Vitals: Vital Signs Temp Pulse Resp BP Pulse Ox 07/24/18 18:55 94.2 F L 85 18 93/59 97 07/24/18 18:02 93.2 F L 75 18 101/64 100 07/24/18 17:26 92.3 F L 68 16 98/57 100 07/24/18 17:01 64 16 103/47 100 07/24/18 16:51 67 14 83/50 97 07/24/18 16:35 62 12 77/37 86 L 07/24/18 16:29 90.1 F L 63 10 L 56/31 95 07/24/18 16:15 55 L 12 53/39 94 L 07/24/18 16:10 68 10 L 123/60 95 07/24/18 16:04 69 8 L 83/43 97 07/24/18 15:40 59 L 14 123/51 90 L 07/24/18 15:30 55 L 16 129/76 97 07/24/18 14:54 89.9 F L 78 18 129/76 94 L Intake and Output 07/24/18 07/24/18 07/24/18 06:59 14:59 22:59 Intake Total 2500 Output Total 300 Balance 2200 Intake: Amount of Fluid Infused ( 2500 ml) Output: Urine 300 Uretheral (Brunson) 300 Other: Weight 49.895 kg General Appearance: Sedated on mechanical ventilation Neck HEENT: Supple, no lymphadenopathy, no thyroid enlargement, no carotid bruits. Lungs: Decreased breaths in bilaterally specially the right side with fine rhonchi positive crackles and wheezes bilaterally. Chest Wall: Decreased expansion with deep inspiration no soreness no rash no deformity. Heart: Regular rate and rhythm, S1, S2 normal, no murmur, rub or gallop. Positive tachycardia Back: Symmetric, no curvature, ROM normal, no CVA tenderness. Abdomen: Soft, non-tender, bowel sounds active all four quadrants, no masses, no organomegaly. Positive bulk of stool felt through the abdominal wall area. Extremities: Extremities normal, atraumatic, no cyanosis or edema. Pulses: 2+ and symmetric. Skin: Skin color, texture, tugor normal, no rashes or lesions. Neurologic: Sedated on mechanical ventilation still able to withdraw all her 4 extremities. Results CBC & Chem 7: 07/25/18 06:15 07/25/18 06:15 Labs: Abnormal Lab Results - Last 24 Hours (Table) 07/24/18 07/24/18 07/24/18 Range/Units 15:37 15:37 15:37 WBC 31.0 H (3.8-10.6) k/uL RBC 3.42 L (3.80-5.40) m/uL Hgb 9.6 L D (11.4-16.0) gm/dL Hct 30.6 L (34.0-46.0) % RDW 19.5 H (11.5-15.5) % Neutrophils # (Manual) 26.90 H (1.3-7.7) k/uL Metamyelocytes # (Man) 0.93 H (0) k/uL Myelocytes # (Manual) 0.93 H (0) k/uL ABG pH (7.35-7.45) ABG pCO2 (35-45) mmHg ABG pO2 (83-108) mmHg ABG HCO3 (21-25) mmol/L ABG Total CO2 (19-24) mmol/L ABG O2 Saturation (94-97) % Sodium 136 L (137-145) mmol/L Chloride 94 L (98-107) mmol/L BUN 23 H (7-17) mg/dL Glucose 104 H (74-99) mg/dL POC Glucose (mg/dL) (75-99) mg/dL Plasma Lactic Acid Jason (0.7-2.0) mmol/L AST 62 H (14-36) U/L Alkaline Phosphatase 138 H (38-126) U/L Total Creatine Kinase 376 H (30-135) U/L CK-MB (CK-2) 9.3 H (0.0-2.4) ng/mL Total Protein 5.8 L (6.3-8.2) g/dL Albumin 2.8 L (3.5-5.0) g/dL 07/24/18 07/24/18 07/24/18 Range/Units 15:37 16:16 18:00 WBC (3.8-10.6) k/uL RBC (3.80-5.40) m/uL Hgb (11.4-16.0) gm/dL Hct (34.0-46.0) % RDW (11.5-15.5) % Neutrophils # (Manual) (1.3-7.7) k/uL Metamyelocytes # (Man) (0) k/uL Myelocytes # (Manual) (0) k/uL ABG pH 7.52 H (7.35-7.45) ABG pCO2 34 L (35-45) mmHg ABG pO2 358 H (83-108) mmHg ABG HCO3 28 H (21-25) mmol/L ABG Total CO2 29 H (19-24) mmol/L ABG O2 Saturation 100.0 H (94-97) % Sodium (137-145) mmol/L Chloride (98-107) mmol/L BUN (7-17) mg/dL Glucose (74-99) mg/dL POC Glucose (mg/dL) 113 H (75-99) mg/dL Plasma Lactic Acid Jason 4.0 H* (0.7-2.0) mmol/L AST (14-36) U/L Alkaline Phosphatase (38-126) U/L Total Creatine Kinase (30-135) U/L CK-MB (CK-2) (0.0-2.4) ng/mL Total Protein (6.3-8.2) g/dL Albumin (3.5-5.0) g/dL 07/24/18 Range/Units 19:48 WBC (3.8-10.6) k/uL RBC (3.80-5.40) m/uL Hgb (11.4-16.0) gm/dL Hct (34.0-46.0) % RDW (11.5-15.5) % Neutrophils # (Manual) (1.3-7.7) k/uL Metamyelocytes # (Man) (0) k/uL Myelocytes # (Manual) (0) k/uL ABG pH (7.35-7.45) ABG pCO2 (35-45) mmHg ABG pO2 (83-108) mmHg ABG HCO3 (21-25) mmol/L ABG Total CO2 (19-24) mmol/L ABG O2 Saturation (94-97) % Sodium (137-145) mmol/L Chloride (98-107) mmol/L BUN (7-17) mg/dL Glucose (74-99) mg/dL POC Glucose (mg/dL) 103 H (75-99) mg/dL Plasma Lactic Acid Jason (0.7-2.0) mmol/L AST (14-36) U/L Alkaline Phosphatase (38-126) U/L Total Creatine Kinase (30-135) U/L CK-MB (CK-2) (0.0-2.4) ng/mL Total Protein (6.3-8.2) g/dL Albumin (3.5-5.0) g/dL Assessment and Plan Plan: 1 acute respiratory failure: Most likely from severe sepsis, aspiration pneumonia, hypoxia, hypotension, hypothermic and arrhythmia. Consult intensive care pulmonary continue current management with vent management for now. 2 sepsis: Most likely from aspiration pneumonia, UTI and recent sepsis with staph infection previously. 3 severe right-sided pneumonia: Possibly gram-negative versus aspiration, patient was started on vancomycin and gram-negative coverage. Might add Zosyn for gram-negative coverage. 4 dysphagia: When she is off mechanical ventilation patient will need swallow evaluation again and if needed might need PEG tube. 5 severe lactic acidosis: Continue sepsis protocol repeat lactic acid and CBC. 6 hypothyroidism: Switch patient to IV thyroid medication have to does normally till she is able to take her oral intake. 7 hyperlipidemia: We'll hold her atorvastatin for now. 8 schizoaffective disorders has been on Risperdal, Cogentin and Depakote. 9 COPD: Patient has been on Pulmicort and Ventolin. 10 iron deficiency anemia: Continue patient on iron supplement. 11 DVT prophylaxis: Will continue patient on heparin subcutaneous. 12 GI prophylaxis: Patient will be on pantoprazole IV. CODE STATUS: Full code. Admit patient to inpatient for more than 2 nights.
[2018-07-25] MEDS: LACTULOSE 20 GM/30 ML CUP PO SCH ×3 (11:25→22:00)
[2018-07-25] MEDS: NOREPINEPHRINE 32 MG in SODIUM CHLORIDE 0.9% 218 ML IV SCH (11:26)
[2018-07-25] MEDS: SODIUM CHLORIDE 0.9% 1,000 ML IV SCH (11:26)
--- NOTE | 2018-07-25 11:29 | P.PN ---
Subjective Progress Note Date: 07/25/18 Principal diagnosis: Alter mental status, respiratory failure, sepsis, dysphagia, aspiration pneumonia, fluid overload, schizoaffective disorders. 78-year-old female who has been seen Dr. Means lately who was in the hospital not too long ago with sepsis and altered mental status and sepsis seems like she had urinary tract infection from cystitis with positive blood culture for staph infection. Patient had an episode of acute hypoxic respiratory failure was on BiPAP at the time and have acute lactic acidosis with severe hypokalemia and acute kidney injury also had pancytopenia due to sepsis is known to have development delay and history of schizoaffective disorders. Patient left the hospital on June 29. Patient found by the caregiver to have significant alter mental status with decline in mobility and her respond. Not been able to transfer herself patient brought to the emergency department [facility] via EMS was seen and evaluated she was hypothermic, hypoxic, having significant shortness of breath mildly elevated troponin and blood pressure declined significantly with significant elevated lactic acid. Patient was intubated and admitted to the intensive care unit afterward for the above problem. 07/25/2018: Patient is more stable hemodynamically, blood pressure is much better controlled, still on vasopressor, still intubated on mechanical ventilation but temperature has improved and her vitals are much better respond to the current dose of IV antibiotic between Vanco and Zosyn. The caregiver was informed that if patient had problem with aspiration and possibility of dysphagia might require PEG tube something will be communicating with the legal guardian for possibility after she is extubated. Objective - Vital Signs Vital signs: Vital Signs Temp 97.1 F L 07/25/18 08:00 Pulse 76 07/25/18 11:00 Resp 12 07/25/18 11:00 BP 109/59 07/25/18 11:00 Pulse Ox 98 07/25/18 11:00 Intake & Output 07/24/18 07/25/18 07/25/18 18:59 06:59 18:59 Intake Total 7216.000 950 Output Total 300 340 425 Balance -300 6876.000 525 Weight 49.895 kg 61.4 kg Intake: IV 3700 950 Magnesium Sulfate-D5w Pmx 200 1 gm In Dextrose/Water 1 100ml.bag @ 100 mls/hr IVPB Q1H [facility] Rx#: [id number] Sodium Chloride 0.9% 1, 3450 500 000 ml @ 100 mls/hr IV . Q10H [facility] Rx#:[id number] Vancomycin 1,000 mg In 250 250 Sodium Chloride 0.9% 250 ml @ 125 mls/hr IVPB ONCE [facility] Rx#:[id number] Amount of Fluid Infused ( 2500 ml) Intake, IV Titration 1016.000 Amount Norepinephrine 4 mg In 1016.000 Sodium Chloride 0.9% 250 ml @ 0.05 MCG/KG/MIN 9.5 mls/hr IV .Q24H [facility] Rx#: [id number] Output: Urine 300 340 425 Uretheral (Brunson) 300 Other: Voiding Method Indwelling Catheter Indwelling Catheter - Exam Review of system: CONSTITUTIONAL: On mechanical ventilation looks resting comfortably EYES: No icterus sclerae, no conjunctivitis. EARS, NOSE, MOUTH, THROAT, and FACE: No sore throat, lymphadenopathy, carotid bruits or deformity. RESPIRATORY: Positive shortness of breath cough wheezes CARDIOVASCULAR: No CP, Palpitation, PND, Orthopnea, or angina. GASTROINTESTINAL: Possible dysphagia GENITOURINARY: Negative for Hematuria or UTI, no kidney stones. Positive incontinence INTEGUMENT/BREAST: Negative for any muscular injury with mild osteoarthritis.. HEMATOLOGIC/LYMPHATIC: Negative for bleed or purpura. MUSCULOSKELTAL: Negative for Myalgia or arthralgia. NEURLOGICAL: Completely sedated on mechanical ventilation. BEHAVIORAL/PSYCH: Negative. ENDOCRINE: Negative. Physical examination: General Appearance: Sedated on mechanical ventilation Neck HEENT: Supple, no lymphadenopathy, no thyroid enlargement, no carotid bruits. Lungs: Decreased breaths in bilaterally specially the right side with fine rhonchi positive crackles and wheezes bilaterally. Chest Wall: Decreased expansion with deep inspiration no soreness no rash no deformity. Heart: Regular rate and rhythm, S1, S2 normal, no murmur, rub or gallop. Positive tachycardia Back: Symmetric, no curvature, ROM normal, no CVA tenderness. Abdomen: Soft, non-tender, bowel sounds active all four quadrants, no masses, no organomegaly. Positive bulk of stool felt through the abdominal wall area. Extremities: Extremities normal, atraumatic, no cyanosis or edema. Pulses: 2+ and symmetric. Skin: Skin color, texture, tugor normal, no rashes or lesions. Neurologic: Sedated on mechanical ventilation still able to withdraw all her 4 extremities. - Labs CBC & Chem 7: 07/25/18 06:15 07/25/18 06:15 Labs: Abnormal Lab Results - Last 24 Hours (Table) 07/24/18 07/24/18 07/24/18 Range/Units 15:37 15:37 15:37 WBC 31.0 H (3.8-10.6) k/uL RBC 3.42 L (3.80-5.40) m/uL Hgb 9.6 L D (11.4-16.0) gm/dL Hct 30.6 L (34.0-46.0) % RDW 19.5 H (11.5-15.5) % Plt Count (150-450) k/uL Neutrophils # (1.3-7.7) k/uL Neutrophils # (Manual) 26.90 H (1.3-7.7) k/uL Metamyelocytes # (Man) 0.93 H (0) k/uL Myelocytes # (Manual) 0.93 H (0) k/uL ABG pH (7.35-7.45) ABG pCO2 (35-45) mmHg ABG pO2 (83-108) mmHg ABG HCO3 (21-25) mmol/L ABG Total CO2 (19-24) mmol/L ABG O2 Saturation (94-97) % Sodium 136 L (137-145) mmol/L Chloride 94 L (98-107) mmol/L BUN 23 H (7-17) mg/dL Glucose 104 H (74-99) mg/dL POC Glucose (mg/dL) (75-99) mg/dL Plasma Lactic Acid Jason (0.7-2.0) mmol/L Calcium (8.4-10.2) mg/dL AST 62 H (14-36) U/L Alkaline Phosphatase 138 H (38-126) U/L Total Creatine Kinase 376 H (30-135) U/L CK-MB (CK-2) 9.3 H (0.0-2.4) ng/mL Total Protein 5.8 L (6.3-8.2) g/dL Albumin 2.8 L (3.5-5.0) g/dL Procalcitonin (0.02-0.09) ng/mL 07/24/18 07/24/18 07/24/18 Range/Units 15:37 15:37 16:16 WBC (3.8-10.6) k/uL RBC (3.80-5.40) m/uL Hgb (11.4-16.0) gm/dL Hct (34.0-46.0) % RDW (11.5-15.5) % Plt Count (150-450) k/uL Neutrophils # (1.3-7.7) k/uL Neutrophils # (Manual) (1.3-7.7) k/uL Metamyelocytes # (Man) (0) k/uL Myelocytes # (Manual) (0) k/uL ABG pH (7.35-7.45) ABG pCO2 (35-45) mmHg ABG pO2 (83-108) mmHg ABG HCO3 (21-25) mmol/L ABG Total CO2 (19-24) mmol/L ABG O2 Saturation (94-97) % Sodium (137-145) mmol/L Chloride (98-107) mmol/L BUN (7-17) mg/dL Glucose (74-99) mg/dL POC Glucose (mg/dL) 113 H (75-99) mg/dL Plasma Lactic Acid Jason 4.0 H* (0.7-2.0) mmol/L Calcium (8.4-10.2) mg/dL AST (14-36) U/L Alkaline Phosphatase (38-126) U/L Total Creatine Kinase (30-135) U/L CK-MB (CK-2) (0.0-2.4) ng/mL Total Protein (6.3-8.2) g/dL Albumin (3.5-5.0) g/dL Procalcitonin 1.37 H (0.02-0.09) ng/mL 07/24/18 07/24/18 07/25/18 Range/Units 18:00 19:48 03:44 WBC (3.8-10.6) k/uL RBC (3.80-5.40) m/uL Hgb (11.4-16.0) gm/dL Hct (34.0-46.0) % RDW (11.5-15.5) % Plt Count (150-450) k/uL Neutrophils # (1.3-7.7) k/uL Neutrophils # (Manual) (1.3-7.7) k/uL Metamyelocytes # (Man) (0) k/uL Myelocytes # (Manual) (0) k/uL ABG pH 7.52 H (7.35-7.45) ABG pCO2 34 L (35-45) mmHg ABG pO2 358 H 164 H (83-108) mmHg ABG HCO3 28 H 26 H (21-25) mmol/L ABG Total CO2 29 H 27 H (19-24) mmol/L ABG O2 Saturation 100.0 H 100.0 H (94-97) % Sodium (137-145) mmol/L Chloride (98-107) mmol/L BUN (7-17) mg/dL Glucose (74-99) mg/dL POC Glucose (mg/dL) 103 H (75-99) mg/dL Plasma Lactic Acid Jason (0.7-2.0) mmol/L Calcium (8.4-10.2) mg/dL AST (14-36) U/L Alkaline Phosphatase (38-126) U/L Total Creatine Kinase (30-135) U/L CK-MB (CK-2) (0.0-2.4) ng/mL Total Protein (6.3-8.2) g/dL Albumin (3.5-5.0) g/dL Procalcitonin (0.02-0.09) ng/mL 07/25/18 07/25/18 Range/Units 06:15 06:15 WBC 20.0 H (3.8-10.6) k/uL RBC 2.64 L (3.80-5.40) m/uL Hgb 7.7 L D (11.4-16.0) gm/dL Hct 24.4 L (34.0-46.0) % RDW 19.9 H (11.5-15.5) % Plt Count 124 L (150-450) k/uL Neutrophils # 18.0 H (1.3-7.7) k/uL Neutrophils # (Manual) (1.3-7.7) k/uL Metamyelocytes # (Man) (0) k/uL Myelocytes # (Manual) (0) k/uL ABG pH (7.35-7.45) ABG pCO2 (35-45) mmHg ABG pO2 (83-108) mmHg ABG HCO3 (21-25) mmol/L ABG Total CO2 (19-24) mmol/L ABG O2 Saturation (94-97) % Sodium (137-145) mmol/L Chloride 110 H (98-107) mmol/L BUN (7-17) mg/dL Glucose 66 L (74-99) mg/dL POC Glucose (mg/dL) (75-99) mg/dL Plasma Lactic Acid Jason (0.7-2.0) mmol/L Calcium 7.2 L (8.4-10.2) mg/dL AST (14-36) U/L Alkaline Phosphatase (38-126) U/L Total Creatine Kinase (30-135) U/L CK-MB (CK-2) (0.0-2.4) ng/mL Total Protein (6.3-8.2) g/dL Albumin (3.5-5.0) g/dL Procalcitonin (0.02-0.09) ng/mL Microbiology - Last 24 Hours (Table) 07/24/18 20:08 Gram Stain - Preliminary Sputum Sputum Culture - Preliminary 07/24/18 16:43 Urine Culture - Preliminary Urine,Catheterized Assessment and Plan Plan: 1 acute respiratory failure: Most likely from severe sepsis, aspiration pneumonia, hypoxia, hypotension, hypothermic and arrhythmia. Consult intensive care pulmonary continue current management with vent management for now. 2 sepsis: Most likely from aspiration pneumonia, UTI and recent sepsis with staph infection previously. 3 severe right-sided pneumonia: Possibly gram-negative versus aspiration, patient was started on vancomycin and gram-negative coverage. Might add Zosyn for gram-negative coverage. 4 dysphagia: When she is off mechanical ventilation patient will need swallow evaluation again and if needed might need PEG tube. 5 severe lactic acidosis: Continue sepsis protocol repeat lactic acid and CBC. 6 hypothyroidism: Switch patient to IV thyroid medication have to does normally till she is able to take her oral intake. 7 hyperlipidemia: We'll hold her atorvastatin for now. 8 schizoaffective disorders has been on Risperdal, Cogentin and Depakote. 9 COPD: Patient has been on Pulmicort and Ventolin. 10 iron deficiency anemia: Continue patient on iron supplement. Her anemia is much worse today with hemoglobin is down 7.7 whether this is hemolytic or eluted not a clear repeat CBC and keep watching for any positive Hemoccult might require further GI workup. 11 DVT prophylaxis: Will continue patient on heparin subcutaneous. 12 GI prophylaxis: Patient will be on pantoprazole IV. Discussed with the caregiver possibility of needing PEG tube will communicate with the legal guardian and dependent of how patient does in the next couple days.
--- NOTE | 2018-07-25 11:35 | XR ---
EXAMINATION TYPE: XR chest 1V portable DATE OF EXAM: 07/25/2018 COMPARISON: 07/24/2018 INDICATION: Tube placement TECHNIQUE: Single frontal view of the chest is obtained. FINDINGS: The heart size is normal. The pulmonary vasculature is normal. There is a patchy infiltrate to the right lung. Retrocardiac infiltrate and/or effusion may be presen t at the left base. Endotracheal tube tip is approximately 1.4 cm above the ovidio. This could be pulled back slightly. N asogastric tube transverses the thorax the tip of the abdomen. Left central venous catheter is presen t with the tip in the right atrium. IMPRESSION: 1. Multiple lines and catheters discussed above. These are unchanged in position from the comparison studies. 2. Patchy infiltrate to the right lung can be compatible with pneumonia. Findings are worsening from comparison. 3. Retrocardiac infiltrate and/or left pleural effusion.
--- NOTE | 2018-07-25 11:46 | XR ---
EXAMINATION TYPE: XR abdomen 1V DATE OF EXAM: 07/25/2018 COMPARISON: 07/20/2018 INDICATION: Constipation TECHNIQUE: Single view abdomen supine view FINDINGS: Abundant fecal debris is throughout the colon. This appears well formed to the distal transverse and descending colon. Psoas margins are well visualized. No organomegaly is evident. Nasogastric tube is in the right upper quadrant of the abdomen. Right hip pin is present. There appears to be dislocation of the previous femoral head. There is erosion of th e right pelvic supra-acetabular region. IMPRESSION: 1. Moderate fecal retention. Correlate for constipation. 2. Dislocation and erosion of the right hip region
[2018-07-25] MEDS ORDERED: BISACODYL 10 MG SUPP RECTAL STA (13:57)
--- NOTE | 2018-07-25 14:09 | P.CONS ---
History of Present Illness - Reason for Consult Consult date: 07/25/18 Pneumonia, multiple open wounds - History of Present Illness This is a 78-year-old female who was recently admitted June 17 through June 29 of which time she was treated for acute hypoxic respiratory failure with bilateral pulmonary infiltrates/aspiration pneumonia, lactic acidosis, hypothermia. Patient has underlying history of developmentally delay and has a public guardian. She was discharged home where she has 24-hour supervision and home care. She was discharged with Augmentin for another 5 days. Yesterday, patient was brought back into [facility] emergency center by EMS for altered mental status that are going on for the past few days with worsening mental status and productive cough with increasing weakness. She was found to have a rectal temperature of 89.9 and became severely hypotensive. In the emergency center, she was intubated, left IJ placed. White count 31, hemoglobin 9.6, platelet count 167, creatinine 0.7. Troponin was negative, TSH 1.6, lactic acid 4. Influenza testing negative. Urinalysis and urine drug screen negative. Chest x-ray shows new development of right-sided multifocal bronchopneumonia. Brain CT showed no definite acute process. 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 Patient is status post multiple units of saline fluid bolus and has been started on norepinephrine. Patient has been started on vancomycin and Zosyn. Repeat chest x-ray this morning reveals patchy infiltrate in the right lung compatible with pneumonia worsening from yesterday. Abdominal x-ray reveals moderate fecal retention correlate for constipation. Dislocation and erosion of the right hip region. Patient also presented with a stage III pressure ulcer to the left heel , stage II rash or ulcer to the buttock and stage II to the upper back. Review of Systems ROS unobtainable: due to endotracheal tube Past Medical History Past Medical History: Heart Failure, Hyperlipidemia, Hypertension, Mitral Valve Prolapse (MVP), Seizure Disorder, Thyroid Disorder Additional Past Medical History / Comment(s): PARKINSON'S, MENTAL RETARDATION, UNKNOWN WHEN LAST SEIZURE, USES A WHEELCHAIR, RT ARM IN BANDAGE WITH SLING. CAREGIVER STATES ABLE TO READ AND WRITE, DIFFICULTY WITH COMPREHENSION. History of Any Multi-Drug Resistant Organisms: None Reported Past Surgical History: Joint Replacement Additional Past Surgical History / Comment(s): RIGHT HIP, ORIF OF RIGHT ELBOW (). Past Anesthesia/Blood Transfusion Reactions: No Reported Reaction Past Psychological History: Depression, Schizophrenia Smoking Status: Former smoker Past Alcohol Use History: None Reported Past Drug Use History: None Reported - Past Family History Brother(s) Family Medical History: Seizure Disorder Additional Family Medical History / Comment(s): parkinsons Medications and Allergies Home Medications Medication Instructions Recorded Confirmed Type Albuterol Nebulized [Ventolin 1 applic INHALATION RT-QID 09/09/14 07/24/18 History Nebulized] Aspirin 81 mg PO DAILY 09/09/14 07/24/18 History Benztropine Mesylate [Cogentin] 0.5 mg PO BID 09/09/14 07/24/18 History risperiDONE [RisperDAL] 1 mg PO BID 09/09/14 07/24/18 History Atorvastatin [Lipitor] 5 mg PO DAILY 06/16/18 07/24/18 History Budesonide [Pulmicort] 0.25 mg INHALATION RT-BID 06/16/18 07/24/18 History Cranberry Fruit Extract [Cranberry] 200 mg PO DAILY 06/16/18 07/24/18 History Ferrous Sulfate [Iron] 325 mg PO BID 06/16/18 07/24/18 History Levothyroxine Sodium [Synthroid] 125 mcg PO DAILY 06/16/18 07/24/18 History Acetaminophen Tab [Tylenol Tab] 500 mg PO Q6H PRN 07/24/18 07/24/18 History Divalproex Sodium 250 mg PO BID 07/24/18 07/24/18 History Furosemide [Lasix] 20 mg PO DAILY 07/24/18 07/24/18 History Meloxicam 7.5 mg PO DAILY 07/24/18 07/24/18 History Naproxen Sodium [Aleve] 220 mg PO DAILY PRN 07/24/18 07/24/18 History Allergies Allergy/AdvReac Type Severity Reaction Status Date / Time sulfamethoxazole Allergy Rash/Hives Verified 07/24/18 15:44 [From Bactrim] trimethoprim [From Bactrim] Allergy Rash/Hives Verified 07/24/18 15:44 Physical Exam Vitals: Vital Signs Temp Pulse Resp BP Pulse Ox 07/25/18 13:00 73 12 109/54 90 L 07/25/18 12:30 68 12 107/54 97 07/25/18 12:00 95.9 F L 70 12 121/61 97 07/25/18 11:30 69 12 118/55 98 07/25/18 11:00 76 12 109/59 98 07/25/18 10:30 73 12 103/54 99 07/25/18 10:00 73 12 100/54 99 07/25/18 09:30 77 13 113/52 98 07/25/18 09:00 81 17 112/58 97 07/25/18 08:30 77 12 113/59 97 07/25/18 08:00 97.1 F L 79 12 119/54 97 07/25/18 07:30 81 12 122/53 98 07/25/18 07:00 83 13 107/53 97 07/25/18 06:45 84 12 107/59 97 07/25/18 06:30 86 12 112/51 96 07/25/18 06:15 85 12 110/57 97 07/25/18 06:00 86 12 104/51 97 07/25/18 05:45 86 12 112/52 97 07/25/18 05:30 86 12 117/68 97 07/25/18 05:15 87 12 108/61 98 07/25/18 05:00 87 18 102/49 97 07/25/18 04:45 88 18 102/47 97 07/25/18 04:30 89 12 104/49 96 07/25/18 04:15 88 12 106/62 97 07/25/18 04:00 90 13 112/58 97 07/25/18 03:57 12 07/25/18 03:45 98.5 F 89 12 114/54 99 07/25/18 03:32 99 07/25/18 03:30 91 13 107/50 99 07/25/18 03:15 90 12 101/48 99 07/25/18 03:00 91 13 108/48 99 07/25/18 02:45 91 14 105/49 98 07/25/18 02:30 93 12 112/50 98 07/25/18 02:15 92 12 108/50 98 07/25/18 02:00 93 12 106/55 98 07/25/18 01:45 93 14 105/52 98 07/25/18 01:30 93 14 105/51 98 07/25/18 01:15 95 13 102/45 98 07/25/18 01:00 98 13 106/56 98 0220/19 00:45 98 15 101/49 98 022019 00:30 99 15 109/51 98 022019 00:15 98 12 106/49 99 07/25/18 00:00 99 F 99 13 99/50 98 02 23:45 99 14 107/47 98 02 23:42 99 02 23:30 96 15 105/45 98 02 23:15 92 13 100/45 99 02 23:00 90 12 104/46 98 07/24/18 22:45 89 12 111/46 98 07/24/18 22:30 87 12 105/45 99 02 22:15 84 12 98/47 99 02 22:00 83 12 87/43 99 07/24/18 21:45 83 12 106/46 99 07/24/18 21:30 96.4 F L 84 12 99/49 98 07/24/18 21:15 83 14 103/56 98 02 21:00 81 12 111/49 98 07/24/18 20:58 80 12 98 02 20:57 81 12 111/49 98 07/24/18 20:56 84 12 02 20:55 85 12 98 02 20:54 84 12 98 02 20:53 87 12 98 02 20:52 81 12 103/50 98 07/24/18 20:51 82 12 98 02 20:50 81 12 98 02 20:49 81 12 98 02 20:48 80 12 98 02 20:47 79 12 99/48 98 02 20:46 79 24 100 02 20:45 77 12 98 0219 20:44 78 12 98 0219 20:43 80 12 98 0219 20:42 78 12 98 02 20:41 80 13 02 20:40 79 12 98 02 20:39 80 12 98 02 20:38 80 12 98 02 20:37 80 12 93/49 98 07/24/18 20:36 80 13 07/24/18 20:35 80 12 98 07/24/18 20:34 80 12 98 07/24/18 20:33 80 12 98 07/24/18 20:32 82 14 90/50 98 07/24/18 20:31 80 12 07/24/18 20:30 80 12 98 07/24/18 20:29 81 12 98 07/24/18 20:28 80 12 93/47 98 07/24/18 20:27 80 12 98 07/24/18 20:26 82 12 93/47 97 07/24/18 20:25 78 12 97 07/24/18 20:24 80 14 98 07/24/18 20:23 78 12 98 07/24/18 20:22 80 12 98 07/24/18 20:21 81 12 97 07/24/18 20:20 82 11 L 98 07/24/18 20:19 84 19 110/49 98 07/24/18 20:18 92 18 98 07/24/18 20:17 90 19 99 07/24/18 20:16 89 12 88/49 07/24/18 20:15 84 12 88/49 98 07/24/18 20:14 85 12 98 07/24/18 20:00 13 07/24/18 19:45 94.7 F L 82 12 90/52 98 07/24/18 18:55 94.2 F L 85 18 93/59 97 07/24/18 18:02 93.2 F L 75 18 101/64 100 07/24/18 17:26 92.3 F L 68 16 98/57 100 07/24/18 17:01 64 16 103/47 100 07/24/18 16:51 67 14 83/50 97 07/24/18 16:35 62 12 77/37 86 L 07/24/18 16:29 90.1 F L 63 10 L 56/31 95 07/24/18 16:15 55 L 12 53/39 94 L 07/24/18 16:10 68 10 L 123/60 95 07/24/18 16:04 69 8 L 83/43 97 07/24/18 15:40 59 L 14 123/51 90 L 07/24/18 15:30 55 L 16 129/76 97 07/24/18 14:54 89.9 F L 78 18 129/76 94 L Intake and Output 07/24/18 07/25/18 07/25/18 22:59 06:59 14:59 Intake Total 3404.000 3812 1150 Output Total 381 259 500 Balance 3023.000 3553 650 Intake: IV 650 3050 1150 Magnesium Sulfate-D5w Pmx 200 1 gm In Dextrose/Water 1 100ml.bag @ 100 mls/hr IVPB Q1H DEANNA Rx#: [id number] Sodium Chloride 0.9% 1, 400 3050 700 000 ml @ 100 mls/hr IV . Q10H DEANNA Rx#:[id number] Vancomycin 1,000 mg In 250 250 Sodium Chloride 0.9% 250 ml @ 125 mls/hr IVPB ONCE STA Rx#:[id number] Amount of Fluid Infused ( 2500 ml) Intake, IV Titration 254.000 762 Amount Norepinephrine 4 mg In 254.000 762 Sodium Chloride 0.9% 250 ml @ 0.05 MCG/KG/MIN 9.5 mls/hr IV .Q24H DEANNA Rx#: [id number] Output: Urine 381 259 500 Uretheral (Brunson) 300 Other: Voiding Method Indwelling Catheter Indwelling Catheter Indwelling Catheter Weight 61.4 kg 61.4 kg Gen: This is a 78-year-old female. She is in the ICU bed, intubated and on mechanical ventilation. HEENT: Head is atraumatic, normocephalic. Pupils equal, round. Sclerae is anicteric. NECK: Supple. No JVD. No lymphadenopathy. No thyromegaly. LUNGS: Decreased on the right side with rhonchi. No intercostal retractions. HEART: Regular rate and rhythm. No murmur. ABDOMEN: Soft. Bowel sounds are present. No tenderness. EXTREMITIES: No pedal edema. No calf tenderness. Dorsalis pedis +2 bilaterally. SKIN: stage III pressure ulcer to the left heel, stage II rash or ulcer to the buttock and stage II to the upper back. NEUROLOGICAL: Patient is intubated. Results Results: Laboratory Results WBC 20.0 k/uL (3.8-10.6) H 07/25/18 06:15 RBC 2.64 m/uL (3.80-5.40) L 07/25/18 06:15 Hgb 7.7 gm/dL (11.4-16.0) L D 07/25/18 06:15 Hct 24.4 % (34.0-46.0) L 07/25/18 06:15 MCV 92.3 fL (80.0-100.0) 07/25/18 06:15 MCH 29.0 pg (25.0-35.0) 07/25/18 06:15 MCHC 31.4 g/dL (31.0-37.0) 07/25/18 06:15 RDW 19.9 % (11.5-15.5) H 07/25/18 06:15 Plt Count 124 k/uL (150-450) L 07/25/18 06:15 Neutrophils % 90 % 07/25/18 06:15 Neutrophils % (Manual) 63 % 07/24/18 15:37 Band Neutrophils % 24 % 07/24/18 15:37 Lymphocytes % 7 % 07/25/18 06:15 Lymphocytes % (Manual) 6 % 07/24/18 15:37 Monocytes % 2 % 07/25/18 06:15 Monocytes % (Manual) 2 % 07/24/18 15:37 Eosinophils % 0 % 07/25/18 06:15 Basophils % 0 % 07/25/18 06:15 Metamyelocytes % 3 % 07/24/18 15:37 Myelocytes % 3 % 07/24/18 15:37 Neutrophils # 18.0 k/uL (1.3-7.7) H 07/25/18 06:15 Neutrophils # (Manual) 26.90 k/uL (1.3-7.7) H 07/24/18 15:37 Lymphocytes # 1.4 k/uL (1.0-4.8) 07/25/18 06:15 Lymphocytes # (Manual) 1.86 k/uL (1.0-4.8) 07/24/18 15:37 Monocytes # 0.4 k/uL (0-1.0) 07/25/18 06:15 Monocytes # (Manual) 0.62 k/uL (0-1.0) 07/24/18 15:37 Eosinophils # 0.1 k/uL (0-0.7) 07/25/18 06:15 Basophils # 0.0 k/uL (0-0.2) 07/25/18 06:15 Metamyelocytes # (Man) 0.93 k/uL (0) H 07/24/18 15:37 Myelocytes # (Manual) 0.93 k/uL (0) H 07/24/18 15:37 Nucleated RBCs 0 /100 WBC (0-0) 07/24/18 15:37 Manual Slide Review Performed 07/24/18 15:37 Toxic Granulation Present 07/24/18 15:37 Toxic Vacuolation Present 07/24/18 15:37 Large Platelets Present 07/24/18 15:37 Polychromasia Present 07/24/18 15:37 Hypochromasia Moderate 07/25/18 06:15 Poikilocytosis (manual Present 07/24/18 15:37 Anisocytosis Slight 07/25/18 06:15 PT 10.0 sec (9.0-12.0) 07/24/18 15:37 INR 0.9 (<1.2) 07/24/18 15:37 APTT 26.6 sec (22.0-30.0) 07/24/18 15:37 Sample Site Right Radial 07/25/18 03:44 ABG pH 7.41 (7.35-7.45) 07/25/18 03:44 ABG pCO2 41 mmHg (35-45) 07/25/18 03:44 ABG pO2 164 mmHg (83-108) H 07/25/18 03:44 ABG HCO3 26 mmol/L (21-25) H 07/25/18 03:44 ABG Total CO2 27 mmol/L (19-24) H 07/25/18 03:44 ABG O2 Saturation 100.0 % (94-97) H 07/25/18 03:44 ABG Base Excess 1.5 mmol/L 07/25/18 03:44 Ramez Test Yes 07/25/18 03:44 FiO2 50 % 07/25/18 03:44 Sodium 142 mmol/L (137-145) 07/25/18 06:15 Potassium 3.5 mmol/L (3.5-5.1) 07/25/18 06:15 Chloride 110 mmol/L (98-107) H 07/25/18 06:15 Carbon Dioxide 25 mmol/L (22-30) 07/25/18 06:15 Anion Gap 7 mmol/L 07/25/18 06:15 BUN 16 mg/dL (7-17) 07/25/18 06:15 Creatinine 0.85 mg/dL (0.52-1.04) 07/25/18 06:15 Est GFR (CKD-EPI)AfAm 77 (>60 ml/min/1.73 sqM) 07/25/18 06:15 Est GFR (CKD-EPI)NonAf 67 (>60 ml/min/1.73 sqM) 07/25/18 06:15 Glucose 66 mg/dL (74-99) L 07/25/18 06:15 POC Glucose (mg/dL) 103 mg/dL (75-99) H 07/24/18 19:48 POC Glu Store Team Leader ID Kaylie Zaidi 07/24/18 19:48 Lactic Ac Sepsis Rflx Y 07/24/18 16:23 Plasma Lactic Acid Jason 1.2 mmol/L (0.7-2.0) 07/24/18 19:54 Calcium 7.2 mg/dL (8.4-10.2) L 07/25/18 06:15 Phosphorus 3.6 mg/dL (2.5-4.5) 07/25/18 06:15 Magnesium 1.6 mg/dL (1.6-2.3) 07/25/18 06:15 Total Bilirubin 0.5 mg/dL (0.2-1.3) 07/24/18 15:37 AST 62 U/L (14-36) H 07/24/18 15:37 ALT 50 U/L (9-52) 07/24/18 15:37 Alkaline Phosphatase 138 U/L (38-126) H 07/24/18 15:37 Ammonia <9 umol/L (<30) 07/24/18 16:35 Total Creatine Kinase 376 U/L (30-135) H 07/24/18 15:37 CK-MB (CK-2) 9.3 ng/mL (0.0-2.4) H 07/24/18 15:37 CK-MB (CK-2) Rel Index 2.5 07/24/18 15:37 Troponin I <0.012 ng/mL (0.000-0.034) 07/24/18 15:37 Total Protein 5.8 g/dL (6.3-8.2) L 07/24/18 15:37 Albumin 2.8 g/dL (3.5-5.0) L 07/24/18 15:37 Lipase 28 U/L (23-300) 07/24/18 15:37 Procalcitonin 1.37 ng/mL (0.02-0.09) H 07/24/18 15:37 TSH 1.600 mIU/L (0.465-4.680) 07/24/18 15:37 Urine Color Yellow 07/24/18 16:43 Urine Appearance Clear (Clear) 07/24/18 16:43 Urine pH 5.5 (5.0-8.0) 07/24/18 16:43 Ur Specific Rice 1.010 (1.001-1.035) 07/24/18 16:43 Urine Protein Negative (Negative) 07/24/18 16:43 Urine Glucose (UA) Negative (Negative) 07/24/18 16:43 Urine Ketones Negative (Negative) 07/24/18 16:43 Urine Blood Negative (Negative) 07/24/18 16:43 Urine Nitrite Negative (Negative) 07/24/18 16:43 Urine Bilirubin Negative (Negative) 07/24/18 16:43 Urine Urobilinogen <2.0 mg/dL (<2.0) 07/24/18 16:43 Ur Leukocyte Esterase Negative (Negative) 07/24/18 16:43 Urine Opiates Screen Not Detected (NotDetected) 07/24/18 16:43 Ur Oxycodone Screen Not Detected (NotDetected) 07/24/18 16:43 Urine Methadone Screen Not Detected (NotDetected) 07/24/18 16:43 Ur Propoxyphene Screen Not Detected (NotDetected) 07/24/18 16:43 Ur Barbiturates Screen Not Detected (NotDetected) 07/24/18 16:43 U Tricyclic Antidepress Not Detected (NotDetected) 07/24/18 16:43 Ur Phencyclidine Scrn Not Detected (NotDetected) 07/24/18 16:43 Ur Amphetamines Screen Not Detected (NotDetected) 07/24/18 16:43 U Methamphetamines Scrn Not Detected (NotDetected) 07/24/18 16:43 U Benzodiazepines Scrn Not Detected (NotDetected) 07/24/18 16:43 Urine Cocaine Screen Not Detected (NotDetected) 07/24/18 16:43 U Marijuana (THC) Screen Not Detected (NotDetected) 07/24/18 16:43 Influenza Type A RNA Not Detected (Not Detectd) 07/24/18 15:37 Influenza Type B (PCR) Not Detected (Not Detectd) 07/24/18 15:37 CBC & Chem 7: 07/25/18 06:15 07/25/18 06:15 Labs: Abnormal Lab Results - Last 24 Hours (Table) 07/24/18 07/24/18 07/24/18 Range/Units 15:37 15:37 15:37 WBC 31.0 H (3.8-10.6) k/uL RBC 3.42 L (3.80-5.40) m/uL Hgb 9.6 L D (11.4-16.0) gm/dL Hct 30.6 L (34.0-46.0) % RDW 19.5 H (11.5-15.5) % Plt Count (150-450) k/uL Neutrophils # (1.3-7.7) k/uL Neutrophils # (Manual) 26.90 H (1.3-7.7) k/uL Metamyelocytes # (Man) 0.93 H (0) k/uL Myelocytes # (Manual) 0.93 H (0) k/uL ABG pH (7.35-7.45) ABG pCO2 (35-45) mmHg ABG pO2 (83-108) mmHg ABG HCO3 (21-25) mmol/L ABG Total CO2 (19-24) mmol/L ABG O2 Saturation (94-97) % Sodium 136 L (137-145) mmol/L Chloride 94 L (98-107) mmol/L BUN 23 H (7-17) mg/dL Glucose 104 H (74-99) mg/dL POC Glucose (mg/dL) (75-99) mg/dL Plasma Lactic Acid Jason (0.7-2.0) mmol/L Calcium (8.4-10.2) mg/dL AST 62 H (14-36) U/L Alkaline Phosphatase 138 H (38-126) U/L Total Creatine Kinase 376 H (30-135) U/L CK-MB (CK-2) 9.3 H (0.0-2.4) ng/mL Total Protein 5.8 L (6.3-8.2) g/dL Albumin 2.8 L (3.5-5.0) g/dL Procalcitonin (0.02-0.09) ng/mL 07/24/18 07/24/18 07/24/18 Range/Units 15:37 15:37 16:16 WBC (3.8-10.6) k/uL RBC (3.80-5.40) m/uL Hgb (11.4-16.0) gm/dL Hct (34.0-46.0) % RDW (11.5-15.5) % Plt Count (150-450) k/uL Neutrophils # (1.3-7.7) k/uL Neutrophils # (Manual) (1.3-7.7) k/uL Metamyelocytes # (Man) (0) k/uL Myelocytes # (Manual) (0) k/uL ABG pH (7.35-7.45) ABG pCO2 (35-45) mmHg ABG pO2 (83-108) mmHg ABG HCO3 (21-25) mmol/L ABG Total CO2 (19-24) mmol/L ABG O2 Saturation (94-97) % Sodium (137-145) mmol/L Chloride (98-107) mmol/L BUN (7-17) mg/dL Glucose (74-99) mg/dL POC Glucose (mg/dL) 113 H (75-99) mg/dL Plasma Lactic Acid Jason 4.0 H* (0.7-2.0) mmol/L Calcium (8.4-10.2) mg/dL AST (14-36) U/L Alkaline Phosphatase (38-126) U/L Total Creatine Kinase (30-135) U/L CK-MB (CK-2) (0.0-2.4) ng/mL Total Protein (6.3-8.2) g/dL Albumin (3.5-5.0) g/dL Procalcitonin 1.37 H (0.02-0.09) ng/mL 07/24/18 07/24/18 07/25/18 Range/Units 18:00 19:48 03:44 WBC (3.8-10.6) k/uL RBC (3.80-5.40) m/uL Hgb (11.4-16.0) gm/dL Hct (34.0-46.0) % RDW (11.5-15.5) % Plt Count (150-450) k/uL Neutrophils # (1.3-7.7) k/uL Neutrophils # (Manual) (1.3-7.7) k/uL Metamyelocytes # (Man) (0) k/uL Myelocytes # (Manual) (0) k/uL ABG pH 7.52 H (7.35-7.45) ABG pCO2 34 L (35-45) mmHg ABG pO2 358 H 164 H (83-108) mmHg ABG HCO3 28 H 26 H (21-25) mmol/L ABG Total CO2 29 H 27 H (19-24) mmol/L ABG O2 Saturation 100.0 H 100.0 H (94-97) % Sodium (137-145) mmol/L Chloride (98-107) mmol/L BUN (7-17) mg/dL Glucose (74-99) mg/dL POC Glucose (mg/dL) 103 H (75-99) mg/dL Plasma Lactic Acid Jason (0.7-2.0) mmol/L Calcium (8.4-10.2) mg/dL AST (14-36) U/L Alkaline Phosphatase (38-126) U/L Total Creatine Kinase (30-135) U/L CK-MB (CK-2) (0.0-2.4) ng/mL Total Protein (6.3-8.2) g/dL Albumin (3.5-5.0) g/dL Procalcitonin (0.02-0.09) ng/mL 07/25/18 07/25/18 Range/Units 06:15 06:15 WBC 20.0 H (3.8-10.6) k/uL RBC 2.64 L (3.80-5.40) m/uL Hgb 7.7 L D (11.4-16.0) gm/dL Hct 24.4 L (34.0-46.0) % RDW 19.9 H (11.5-15.5) % Plt Count 124 L (150-450) k/uL Neutrophils # 18.0 H (1.3-7.7) k/uL Neutrophils # (Manual) (1.3-7.7) k/uL Metamyelocytes # (Man) (0) k/uL Myelocytes # (Manual) (0) k/uL ABG pH (7.35-7.45) ABG pCO2 (35-45) mmHg ABG pO2 (83-108) mmHg ABG HCO3 (21-25) mmol/L ABG Total CO2 (19-24) mmol/L ABG O2 Saturation (94-97) % Sodium (137-145) mmol/L Chloride 110 H (98-107) mmol/L BUN (7-17) mg/dL Glucose 66 L (74-99) mg/dL POC Glucose (mg/dL) (75-99) mg/dL Plasma Lactic Acid Jason (0.7-2.0) mmol/L Calcium 7.2 L (8.4-10.2) mg/dL AST (14-36) U/L Alkaline Phosphatase (38-126) U/L Total Creatine Kinase (30-135) U/L CK-MB (CK-2) (0.0-2.4) ng/mL Total Protein (6.3-8.2) g/dL Albumin (3.5-5.0) g/dL Procalcitonin (0.02-0.09) ng/mL Microbiology - Last 24 Hours (Table) 07/24/18 20:08 Gram Stain - Preliminary Sputum Sputum Culture - Preliminary 07/24/18 16:43 Urine Culture - Preliminary Urine,Catheterized Assessment and Plan Plan: This is a 78-year-old female who presented to the hospital with acute respiratory failure, severe sepsis and septic shock, aspiration pneumonia, hypothermia and fecal impaction. Patient is currently on IV antibiotics in form of Zosyn and vancomycin. She is status post IV fluid boluses and requiring vasopressors. Fecal impaction is being addressed. Sputum culture is in progress. Blood culture is status received and will culture to be obtained. Patient also presented with stage III pressure ulcer to the left heel, stage II rash or ulcer to the buttock and stage II to the upper back. Local wound care will be addressed. Continue supportive care. Further recommendations as patient progresses. The above dictated assessment and findings were discussed with Dr. Wei. The impression and plan of care have been directed as dictated. Dominique Carpio nurse practitioner acting as scribe for Dr. Wei.
[2018-07-25 14:26] LABS: Magnesium 2.4 mg/dL (1.6-2.3); Potassium 3.4 mmol/L (3.5-5.1)
--- NOTE | 2018-07-25 14:54 | P.CNPUL ---
History of Present Illness Consult date: 07/25/18 Reason for consult: pneumonia History of present illness: This 78-year-old female patient was coming into the hospital because of altered mental status and respiratory failure. The patient was found to be by the caregivers to have difficulties with generalized weakness in her mentation seems to be altered specially over the past 24-48 hours prior to coming to the hospital. She had also difficulties and mobility and she was heart to respond. At that point the caregiver decided to bring this patient back to the hospital for further evaluation. The patient is known to me. I took care of her back in November 2018 for complications of acute hypoxic respiratory failure and acute bilateral aspiration pneumonia. Back then the patient was she is appropriate and the patient recovered and the patient was discharged home. Note that the patient at that time also had a UTI secondary to staphylococcal infection. Patient was brought to the ED for the above-mentioned reasons. Apparently there was a history of productive cough. The patient was found initially to be severely hypothermic. An ultrasound of the heart was done and it showed reduced LV filling pressures secondary to intravascular volume depletion/dehydration. There were 3 evaluation was done and the patient was found to have leukocytosis with a white cell count of 31. Her lactic acid level was at 4.0. Influenza screen was negative. Urinalysis was unremarkable. Chest x-ray showed extensive right lung pulmonary for treated consistent with an underlying pneumonia. The patient was intubated and placed on mechanical ventilator. The troponin catheter was inserted and following that the patient was sent to the ICU. An x-ray of the abdomen was also done that showed extensive moderate to severe fecal impaction within the large bowel. According to the caregiver, the patient was complaining of some abdominal distention big abdominal pain. Currently, the patient is in intensive care unit. The patient is sedated with Diprivan and she is calm and comfortable. She is on a mechanical ventilator and the patient is an assist-control mode rate of 12, tidal volume of 400 with FiO2 of 35% and a PEEP of 5. She is on pressors and she is running on levo fed at 0.03 mics per KG per minute. She is also on propofol running at 5 g per KG per minute. Review of Systems ROS unobtainable: due to mental status Past Medical History Past Medical History: Heart Failure, Hyperlipidemia, Hypertension, Mitral Valve Prolapse (MVP), Seizure Disorder, Thyroid Disorder Additional Past Medical History / Comment(s): History of Parkinson's disease, dementia, developmental delay, schizoaffective disorder, seizure disorder, chronic anemia, recurrent UTIs, recent hospitalization for septic shock secondary to underlying pneumonia, difficulty with mobility and gait and the patient has a gait dysfunction, hypertension, hyperlipidemia, difficulties with comprehension, hypothyroidism, moderate degree of aortic stenosis with a preserved LV function and ejection fraction of 50-55% and the patient has moderate pulmonary hypertension with a PA pressure of 49. History of Any Multi-Drug Resistant Organisms: None Reported Past Surgical History: Joint Replacement Additional Past Surgical History / Comment(s): RIGHT HIP, ORIF OF RIGHT ELBOW (). Past Anesthesia/Blood Transfusion Reactions: No Reported Reaction Past Psychological History: Depression, Schizophrenia Smoking Status: Former smoker Past Alcohol Use History: None Reported Past Drug Use History: None Reported - Past Family History Brother(s) Family Medical History: Seizure Disorder Additional Family Medical History / Comment(s): parkinsons Medications and Allergies Home Medications Medication Instructions Recorded Confirmed Type Albuterol Nebulized [Ventolin 1 applic INHALATION RT-QID 09/09/14 07/24/18 History Nebulized] Aspirin 81 mg PO DAILY 09/09/14 07/24/18 History Benztropine Mesylate [Cogentin] 0.5 mg PO BID 09/09/14 07/24/18 History risperiDONE [RisperDAL] 1 mg PO BID 09/09/14 07/24/18 History Atorvastatin [Lipitor] 5 mg PO DAILY 06/16/18 07/24/18 History Budesonide [Pulmicort] 0.25 mg INHALATION RT-BID 06/16/18 07/24/18 History Cranberry Fruit Extract [Cranberry] 200 mg PO DAILY 06/16/18 07/24/18 History Ferrous Sulfate [Iron] 325 mg PO BID 06/16/18 07/24/18 History Levothyroxine Sodium [Synthroid] 125 mcg PO DAILY 06/16/18 07/24/18 History Acetaminophen Tab [Tylenol Tab] 500 mg PO Q6H PRN 07/24/18 07/24/18 History Divalproex Sodium 250 mg PO BID 07/24/18 07/24/18 History Furosemide [Lasix] 20 mg PO DAILY 07/24/18 07/24/18 History Meloxicam 7.5 mg PO DAILY 07/24/18 07/24/18 History Naproxen Sodium [Aleve] 220 mg PO DAILY PRN 07/24/18 07/24/18 History Allergies Allergy/AdvReac Type Severity Reaction Status Date / Time sulfamethoxazole Allergy Rash/Hives Verified 07/24/18 15:44 [From Bactrim] trimethoprim [From Bactrim] Allergy Rash/Hives Verified 07/24/18 15:44 Physical Exam Vitals: Vital Signs Temp Pulse Resp BP Pulse Ox 07/25/18 14:00 67 12 114/52 97 07/25/18 13:30 70 12 111/66 97 07/25/18 13:00 73 12 109/54 90 L 07/25/18 12:30 68 12 107/54 97 07/25/18 12:00 95.9 F L 70 12 121/61 97 07/25/18 11:30 69 12 118/55 98 07/25/18 11:00 76 12 109/59 98 07/25/18 10:30 73 12 103/54 99 07/25/18 10:00 73 12 100/54 99 07/25/18 09:30 77 13 113/52 98 07/25/18 09:00 81 17 112/58 97 07/25/18 08:30 77 12 113/59 97 07/25/18 08:00 97.1 F L 79 12 119/54 97 07/25/18 07:30 81 12 122/53 98 07/25/18 07:00 83 13 107/53 97 07/25/18 06:45 84 12 107/59 97 07/25/18 06:30 86 12 112/51 96 07/25/18 06:15 85 12 110/57 97 07/25/18 06:00 86 12 104/51 97 07/25/18 05:45 86 12 112/52 97 07/25/18 05:30 86 12 117/68 97 07/25/18 05:15 87 12 108/61 98 07/25/18 05:00 87 18 102/49 97 07/25/18 04:45 88 18 102/47 97 07/25/18 04:30 89 12 104/49 96 07/25/18 04:15 88 12 106/62 97 07/25/18 04:00 90 13 112/58 97 07/25/18 03:57 12 02 03:45 98.5 F 89 12 114/54 99 07/25/18 03:32 99 02 03:30 91 13 107/50 99 07/25/18 03:15 90 12 101/48 99 07/25/18 03:00 91 13 108/48 99 07/25/18 02:45 91 14 105/49 98 07/25/18 02:30 93 12 112/50 98 07/25/18 02:15 92 12 108/50 98 07/25/18 02:00 93 12 106/55 98 07/25/18 01:45 93 14 105/52 98 07/25/18 01:30 93 14 105/51 98 07/25/18 01:15 95 13 102/45 98 07/25/18 01:00 98 13 106/56 98 07/25/18 00:45 98 15 101/49 98 07/25/18 00:30 99 15 109/51 98 07/25/18 00:15 98 12 106/49 99 07/25/18 00:00 99 F 99 13 99/50 98 07/24/18 23:45 99 14 107/47 98 02 23:42 99 02 23:30 96 15 105/45 98 02 23:15 92 13 100/45 99 02 23:00 90 12 104/46 98 07/24/18 22:45 89 12 111/46 98 07/24/18 22:30 87 12 105/45 99 02 22:15 84 12 98/47 99 07/24/18 22:00 83 12 87/43 99 02 21:45 83 12 106/46 99 02 21:30 96.4 F L 84 12 99/49 98 07/24/18 21:15 83 14 103/56 98 02 21:00 81 12 111/49 98 02 20:58 80 12 98 0219 20:57 81 12 111/49 98 02 20:56 84 12 02 20:55 85 12 98 02 20:54 84 12 98 02 20:53 87 12 98 02 20:52 81 12 103/50 98 02 20:51 82 12 98 07/24/18 20:50 81 12 98 02 20:49 81 12 98 07/24/18 20:48 80 12 98 02 20:47 79 12 99/48 98 07/24/18 20:46 79 24 100 02 20:45 77 12 98 07/24/18 20:44 78 12 98 07/24/18 20:43 80 12 98 07/24/18 20:42 78 12 98 02 20:41 80 13 07/24/18 20:40 79 12 98 07/24/18 20:39 80 12 98 07/24/18 20:38 80 12 98 07/24/18 20:37 80 12 93/49 98 07/24/18 20:36 80 13 07/24/18 20:35 80 12 98 07/24/18 20:34 80 12 98 07/24/18 20:33 80 12 98 07/24/18 20:32 82 14 90/50 98 07/24/18 20:31 80 12 02 20:30 80 12 98 07/24/18 20:29 81 12 98 07/24/18 20:28 80 12 93/47 98 07/24/18 20:27 80 12 98 07/24/18 20:26 82 12 93/47 97 07/24/18 20:25 78 12 97 07/24/18 20:24 80 14 98 07/24/18 20:23 78 12 98 07/24/18 20:22 80 12 98 07/24/18 20:21 81 12 97 02 20:20 82 11 L 98 07/24/18 20:19 84 19 110/49 98 02 20:18 92 18 98 02 20:17 90 19 99 02 20:16 89 12 88/49 02 20:15 84 12 88/49 98 02 20:14 85 12 98 02 20:00 13 07/24/18 19:45 94.7 F L 82 12 90/52 98 07/24/18 18:55 94.2 F L 85 18 93/59 97 02 18:02 93.2 F L 75 18 101/64 100 07/24/18 17:26 92.3 F L 68 16 98/57 100 07/24/18 17:01 64 16 103/47 100 07/24/18 16:51 67 14 83/50 97 07/24/18 16:35 62 12 77/37 86 L 07/24/18 16:29 90.1 F L 63 10 L 56/31 95 07/24/18 16:15 55 L 12 53/39 94 L 07/24/18 16:10 68 10 L 123/60 95 07/24/18 16:04 69 8 L 83/43 97 07/24/18 15:40 59 L 14 123/51 90 L 07/24/18 15:30 55 L 16 129/76 97 07/24/18 14:54 89.9 F L 78 18 129/76 94 L Intake and Output 07/24/18 07/25/18 07/25/18 22:59 06:59 14:59 Intake Total 3404.000 3812 1250 Output Total 381 259 520 Balance 3023.000 3553 730 Intake: IV 650 3050 1250 Magnesium Sulfate-D5w Pmx 200 1 gm In Dextrose/Water 1 100ml.bag @ 100 mls/hr IVPB Q1H [facility] Rx#: [id number] Sodium Chloride 0.9% 1, 400 3050 800 000 ml @ 100 mls/hr IV . Q10H [facility] Rx#:[id number] Vancomycin 1,000 mg In 250 250 Sodium Chloride 0.9% 250 ml @ 125 mls/hr IVPB ONCE [facility] Rx#:[id number] Amount of Fluid Infused ( 2500 ml) Intake, IV Titration 254.000 762 Amount Norepinephrine 4 mg In 254.000 762 Sodium Chloride 0.9% 250 ml @ 0.05 MCG/KG/MIN 9.5 mls/hr IV .Q24H [facility] Rx#: [id number] Output: Urine 381 259 520 Uretheral (Brunson) 300 Other: Voiding Method Indwelling Catheter Indwelling Catheter Indwelling Catheter Weight 61.4 kg 61.4 kg Patient is calm comfortable sedated intubated on a mechanical ventilator. No signs of any respiratory distress. Head exam was generally normal. There was no scleral icterus or corneal arcus. Mucous membranes were moist. Neck was supple and without jugular venous distension, thyromegaly, or carotid bruits. Carotids were easily palpable bilaterally. There was no adenopathy. Lungs sounds reveal some rhonchi on the right compared to left. Few scattered expiratory wheezes. Otherwise breath sounds are equal and symmetrical bilaterally. Cardiac exam revealed the PMI to be normally situated and sized. The rhythm was regular and no extrasystoles were noted during several minutes of auscultation. The first and second heart sounds were normal and physiologic splitting of the second heart sound was noted. There were murmurs, no rubs, clicks, or gallops. The patient had a systolic ejection murmur consistent with her underlying aortic stenosis. This is grade 3/6. Abdominal exam revealed normal bowel sounds. The abdomen was soft, non-tender, and without masses, organomegaly, or appreciable enlargement of the abdominal aorta. Bowel sounds are hypoactive and abdomen is slightly distended Examination of the extremities revealed easily palpable radial, femoral and pedal pulses. There was no cyanosis, clubbing or edema. Examination of the skin revealed no evidence of significant rashes, suspicious appearing nevi or other concerning lesions. Neurologically the patient is sedated and she is calm and comfortable. Results - Laboratory Findings CBC and BMP: 07/25/18 06:15 07/25/18 13:50 ABG ABG pH 7.41 (7.35-7.45) 07/25/18 03:44 ABG pCO2 41 mmHg (35-45) 07/25/18 03:44 ABG pO2 164 mmHg (83-108) H 07/25/18 03:44 ABG O2 Saturation 100.0 % (94-97) H 07/25/18 03:44 PT/INR, D-dimer PT 10.0 sec (9.0-12.0) 07/24/18 15:37 INR 0.9 (<1.2) 07/24/18 15:37 Abnormal lab findings: Abnormal Labs 07/24/18 07/24/18 07/24/18 15:37 15:37 15:37 WBC 31.0 H RBC 3.42 L Hgb 9.6 L D Hct 30.6 L RDW 19.5 H Plt Count Neutrophils # Neutrophils # (Manual) 26.90 H Metamyelocytes # (Man) 0.93 H Myelocytes # (Manual) 0.93 H ABG pH ABG pCO2 ABG pO2 ABG HCO3 ABG Total CO2 ABG O2 Saturation Sodium 136 L Potassium Chloride 94 L BUN 23 H Glucose 104 H POC Glucose (mg/dL) Plasma Lactic Acid Jason Calcium Magnesium AST 62 H Alkaline Phosphatase 138 H Total Creatine Kinase 376 H CK-MB (CK-2) 9.3 H Total Protein 5.8 L Albumin 2.8 L Procalcitonin 07/24/18 07/24/18 07/24/18 15:37 15:37 16:16 WBC RBC Hgb Hct RDW Plt Count Neutrophils # Neutrophils # (Manual) Metamyelocytes # (Man) Myelocytes # (Manual) ABG pH ABG pCO2 ABG pO2 ABG HCO3 ABG Total CO2 ABG O2 Saturation Sodium Potassium Chloride BUN Glucose POC Glucose (mg/dL) 113 H Plasma Lactic Acid Jason 4.0 H* Calcium Magnesium AST Alkaline Phosphatase Total Creatine Kinase CK-MB (CK-2) Total Protein Albumin Procalcitonin 1.37 H 07/24/18 07/24/18 07/25/18 18:00 19:48 03:44 WBC RBC Hgb Hct RDW Plt Count Neutrophils # Neutrophils # (Manual) Metamyelocytes # (Man) Myelocytes # (Manual) ABG pH 7.52 H ABG pCO2 34 L ABG pO2 358 H 164 H ABG HCO3 28 H 26 H ABG Total CO2 29 H 27 H ABG O2 Saturation 100.0 H 100.0 H Sodium Potassium Chloride BUN Glucose POC Glucose (mg/dL) 103 H Plasma Lactic Acid Jason Calcium Magnesium AST Alkaline Phosphatase Total Creatine Kinase CK-MB (CK-2) Total Protein Albumin Procalcitonin 07/25/18 07/25/18 07/25/18 06:15 06:15 13:50 WBC 20.0 H RBC 2.64 L Hgb 7.7 L D Hct 24.4 L RDW 19.9 H Plt Count 124 L Neutrophils # 18.0 H Neutrophils # (Manual) Metamyelocytes # (Man) Myelocytes # (Manual) ABG pH ABG pCO2 ABG pO2 ABG HCO3 ABG Total CO2 ABG O2 Saturation Sodium Potassium 3.4 L Chloride 110 H BUN Glucose 66 L POC Glucose (mg/dL) Plasma Lactic Acid Jason Calcium 7.2 L Magnesium 2.4 H AST Alkaline Phosphatase Total Creatine Kinase CK-MB (CK-2) Total Protein Albumin Procalcitonin - Diagnostic Findings Chest x-ray: image reviewed Assessment and Plan Plan: Assessment 1 acute sepsis secondary to an extensive right lung pneumonia, most likely of an aspiration pneumonia as the patient has had difficulties with swallowing and previous evaluations. She was in the hospital approximately a month ago for a similar presentation and back then the patient was treated for bilateral pneumonia 2 acute hypotension secondary to above 3 acute leukocytosis secondary to above 4 acute lactic acidosis secondary to above 5 hypothermia with altered mentation secondary to above 6 chronic anemia 7 seizure disorder 8 developmental delay/Parkinson's disease/dementia/schizoaffective disorder 9 moderate degree of aortic stenosis with moderate pulmonary hypertension based on recent echocardiogram and the patient also has a mitral valve prolapse 10 difficulty with mobility and gait and the patient requires assistance with activities of daily life and 7 care 11 hypertension 12 hyperlipidemia 13 hypothyroidism 14 mild thrombocytopenia 15 extensive fecal impaction Plan Continue IV fluids and the patient will be covered with broad-spectrum antibiotics. We'll add Zosyn. We'll continue the vancomycin for now. IV fluids with normal state rate of 100 mL an hour. Continue Diprivan for sedation. Continue pressors and wean it off to maintain a saturation above 90% . The patient has extensive right lung pneumonia. We'll collect a sputum Gram stain and culture. We'll hold the diuretics for now. We'll wean off the pressors. As far as the stool impaction, the patient will need soapsuds enema and addition to lactulose 20 mL 3 times a day till she develops a softer bowel movement. She may need also manual disimpaction. The patient's latest swallow evaluation that was done on 06/28/2018 showed inconsistent laryngeal penetration with some probably trace aspiration. The condition is critical. The patient is a full code. The caregivers at the bedside. We'll continue to follow.. Abdominal x-ray in the morning. Repeat chest x-ray in the morning. Consider bronchoscopy and bronchial alveolar lavage of the right lung if no improvement. We'll continue to follow.
[2018-07-25] MEDS: PROPOFOL 1,000 MG in EMPTY BAG 1 BAG IV SCH (15:22)
[2018-07-25] MEDS ORDERED: Potassium Replacement Protocol 1 EACH MISC MISCELLANE PRN (15:27)
[2018-07-25] MEDS: POTASSIUM CHLORIDE 20 MEQ in WATER FOR INJECTION 1 100ML.BAG IVPB SCH ×2 (15:32→17:02)
[2018-07-25] MEDS: PIPERACILLIN-TAZOBACTAM 3.375 GM in SODIUM CHLORIDE 0.9% 100 ML IVPB SCH ×2 (15:48→23:17)
[2018-07-25] MEDS: ALBUTEROL NEBULIZED 2.5 MG/3 ML INHALATION SCH ×3 (15:57→20:39)
[2018-07-25] MEDS ORDERED: DEXTROSE 50%-WATER 50 ML SYRINGE IVP ONE (19:48)
[2018-07-25 19:50] LABS: Glucose,Whole Blood 62 mg/dL (75-99)
[2018-07-25 20:06] LABS: Glucose,Whole Blood 198 mg/dL (75-99)
--- NOTE | 2018-07-25 20:13 | P.CON ---
Consult Note - . Consult date: 07/25/18 Assessment/Plan:: This is a 78-year-old female who was recently admitted June 17 through June 29 of which time she was treated for acute hypoxic respiratory failure with bilateral pulmonary infiltrates/aspiration pneumonia, lactic acidosis, hypothermia. Patient has underlying history of developmentally delay and has a public guardian. She was discharged home where she has 24-hour supervision and home care. She was discharged with Augmentin for another 5 days. Yesterday, patient was brought back into [facility] emergency center by EMS for altered mental status that are going on for the past few days with worsening mental status and productive cough with increasing weakness. She was found to have a rectal temperature of 89.9 and became severely hypotensive. In the emergency center, she was intubated, left IJ placed. White count 31, hemoglobin 9.6, platelet count 167, creatinine 0.7. Troponin was negative, TSH 1.6, lactic acid 4. Influenza testing negative. Urinalysis and urine drug screen negative. Chest x-ray shows new development of right-sided multifocal bronchopneumonia. Brain CT showed no definite acute process. 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 Patient is status post multiple units of saline fluid bolus and has been started on norepinephrine. Patient has been started on vancomycin and Zosyn. Repeat chest x-ray this morning reveals patchy infiltrate in the right lung compatible with pneumonia worsening from yesterday. Abdominal x-ray reveals moderate fecal retention correlate for constipation. Dislocation and erosion of the right hip region. Patient also presented with a stage III pressure ulcer to the left heel , stage II rash or ulcer to the buttock and stage II to the upper back.Please see the consult note is dictated by nurse practitioner Mrs. Dominique Gordon. As noted patient is intubated today mechanically ventilated and the low dose of vasopressor at this time. There is concerned it could've been aspiration and consequently treatment for this is penalized with vancomycin and Zosyn given that she is coming from a care facility. The pressure ulcerations are being treated with the optifoam dressings and offloading. Cultures are process. It may further help direct antimicrobial therapy. She is on 35% FiO2 and PEEP of 5 and hopefully will rapidly improved. The significant hypothermia has also resolved with resuscitation and warming. I agree with the evaluation, assessment and plan as dictated by nurse practitioner Mrs. Dominique Carpio.
[2018-07-25] MEDS: DEXTROSE 5%-0.9% NACL 1,000 ML IV SCH (20:30)
[2018-07-25] MEDS: BUDESONIDE 0.25 MG/2 ML NEBU INHALATION SCH (20:39)
[2018-07-25] MEDS ORDERED: FERROUS SULFATE 325 MG TAB PO SCH (21:00)
[2018-07-25] MEDS: FERROUS SULFATE ORAL ELIXIR 300 MG/5 ML CUP PO SCH (21:57)
[2018-07-25] MEDS: BENZTROPINE MESYLATE 0.5 MG TAB PO SCH (21:58)
[2018-07-25] MEDS: DIVALPROEX 250 MG TABLET.DR PO SCH (21:59)
[2018-07-25] MEDS: risperiDONE 1 MG TAB PO SCH (21:59)
[2018-07-25 23:52] LABS: Glucose,Whole Blood 90 mg/dL (75-99)
[2018-07-26] MEDS ORDERED: POTASSIUM BICARBONATE/CIT AC 20 MEQ TABLET.EFF NG-TUBE SCH (02:00)
[2018-07-26] MEDS: NOREPINEPHRINE 32 MG in SODIUM CHLORIDE 0.9% 218 ML IV SCH (03:56)
[2018-07-26 04:06] LABS: Glucose,Whole Blood 87 mg/dL (75-99)
[2018-07-26 04:17] LABS: ABG Base Excess 0.2 mmol/L; ABG HCO3 24 mmol/L (21-25); ABG PCO2 31 mmHg (35-45); ABG PH 7.49 (7.35-7.45); ABG PO2 78 mmHg (83-108); ABG TCO2 25 mmol/L (19-24)
[2018-07-26 04:57] LABS: Anisocytosis Moderate; Basophils % (A) 0 %; Eosinophils # (A) 0.1 k/uL (0-0.7); Eosinophils % (A) 1 %; HCT 23.8 % (34.0-46.0); HGB 7.2 gm/dL (11.4-16.0); Hypochromasia Marked; Lymphocytes # (A) 1.6 k/uL (1.0-4.8); Lymphocytes % (A) 17 %; MCH 28.2 pg (25.0-35.0); MCHC 30.2 g/dL (31.0-37.0); MCV 93.4 fL (80.0-100.0); Macrocytosis Slight; Mean Platelet Volume 9.3; Monocytes # (A) 0.4 k/uL (0-1.0); Monocytes % (A) 4 %; Neutrophils # (A) 7.4 k/uL (1.3-7.7); Neutrophils % (A) 78 %; RBC 2.55 m/uL (3.80-5.40); RDW 20.1 % (11.5-15.5); WBC 9.5 k/uL (3.8-10.6)
[2018-07-26] MEDS: VANCOMYCIN 750 MG in SODIUM CHLORIDE 0.9% 250 ML IVPB SCH ×2 (05:09→18:03)
[2018-07-26 05:12] LABS: Calcium 8.4 mg/dL (8.4-10.2); Magnesium 2.3 mg/dL (1.6-2.3); Potassium 4.4 mmol/L (3.5-5.1)
[2018-07-26 05:29] LABS: Platelet Count 63 k/uL (150-450)
[2018-07-26] MEDS: DEXTROSE 5%-0.9% NACL 1,000 ML IV SCH ×2 (06:50→16:06)
[2018-07-26] MEDS: LEVOTHYROXINE 125 MCG TAB PO SCH (06:50)
[2018-07-26] MEDS: BUDESONIDE 0.25 MG/2 ML NEBU INHALATION SCH ×2 (07:49→20:07)
[2018-07-26] MEDS: ALBUTEROL NEBULIZED 2.5 MG/3 ML INHALATION SCH ×4 (07:49→20:07)
--- NOTE | 2018-07-26 08:19 | XR ---
EXAMINATION TYPE: 89 old Shawn Deidra and vomiting and is really too early to exercising and follow-up will offer additional what DATE OF EXAM: 07/26/2018 COMPARISON: 07/25/2018 HISTORY: 78-year-old female fecal impaction, right lung pneumonia TECHNIQUE: Supine, upright, and left side down lateral decubitus views of the abdomen are obtained. FINDINGS: ET tube tip 1.6 cm from the ovidio. This may need to be repositioned. Attention on follow-up. Left CVC tip in the lower right atrium. Heart borderline enlarged. Relative left upper lobe lucencies suggest underlying COPD. There are small right greater left pleural effusions with patchy opacity th roughout the right lung. Retrocardiac opacity is also present. No evidence for free intraperitoneal air on the sitting view. NG tube courses below the diaphragm. Redemonstrated large stool burden with air extending distally to rectum. No dilated small bowel loops . Chronic right-sided hip deformity with bony remodeling of the acetabulum. Antegrade intramedullary na il and screw fixation is present. IMPRESSION: 1. ET tube tip 1.6 cm from the ovidio. This may need to be pulled back slightly. Attention on follow- up. 2. Patchy infiltrate throughout the right lung persists. Small bilateral pleural effusions with addit ional left basilar atelectasis and/or consolidation. Suspect background of COPD. 3. Nonobstructive bowel gas pattern. No free air. 4. Continued moderate to large stool burden suggesting constipation.
[2018-07-26] MEDS: PIPERACILLIN-TAZOBACTAM 3.375 GM in SODIUM CHLORIDE 0.9% 100 ML IVPB SCH (09:56)
[2018-07-26] MEDS: CHLORHEXIDINE GLUCONATE 15 ML CUP MUCOUS MEM SCH (10:20)
[2018-07-26] MEDS: PANTOPRAZOLE 40 MG/10 ML VIAL IV SCH (10:20)
[2018-07-26] MEDS: LACTULOSE 20 GM/30 ML CUP PO SCH ×3 (10:20→21:52)
[2018-07-26] MEDS: ASPIRIN 81 MG PO SCH (10:21)
[2018-07-26] MEDS: FUROSEMIDE 20 MG TAB PO SCH (10:21)
[2018-07-26] MEDS: ATORVASTATIN 10 MG TAB PO SCH (10:21)
[2018-07-26] MEDS: FERROUS SULFATE ORAL ELIXIR 300 MG/5 ML CUP PO SCH ×2 (10:21→23:18)
[2018-07-26] MEDS: risperiDONE 1 MG TAB PO SCH ×2 (10:22→21:50)
[2018-07-26] MEDS: BENZTROPINE MESYLATE 0.5 MG TAB PO SCH ×2 (10:22→21:49)
--- NOTE | 2018-07-26 11:23 | P.PN ---
Subjective Progress Note Date: 07/26/18 78-year-old female who has been seen Dr. Means lately who was in the hospital not too long ago with sepsis and altered mental status and sepsis seems like she had urinary tract infection from cystitis with positive blood culture for staph infection. Patient had an episode of acute hypoxic respiratory failure was on BiPAP at the time and have acute lactic acidosis with severe hypokalemia and acute kidney injury also had pancytopenia due to sepsis is known to have development delay and history of schizoaffective disorders. Patient left the hospital on June 29. Patient found by the caregiver to have significant alter mental status with decline in mobility and her respond. Not been able to transfer herself patient brought to the emergency department [place] via EMS was seen and evaluated she was hypothermic, hypoxic, having significant shortness of breath mildly elevated troponin and blood pressure declined significantly with significant elevated lactic acid. Patient was intubated and admitted to the intensive care unit afterward for the above problem. 07/25/2018: Patient is more stable hemodynamically, blood pressure is much better controlled, still on vasopressor, still intubated on mechanical ventilation but temperature has improved and her vitals are much better respond to the current dose of IV antibiotic between Vanco and Zosyn. The caregiver was informed that if patient had problem with aspiration and possibility of dysphagia might require PEG tube something will be communicating with the legal guardian for possibility after she is extubated. 07/26: Patient remains intubated and on mechanical ventilation with tidal volume 400, FiO2 35 and PEEP of 5. She has been off levo fed since 745 last evening. She is status post Dulcolax suppository, lactulose and soapsuds enema was given this morning. She has had 3 bowel movements and was disimpacted yesterday. Abdominal x-ray this morning reveals ET tube may need to be pulled back slightly. Patchy infiltrate throughout the right lung persist. Small bilateral pleural effusions and additional left basilar atelectasis and/or consolidation. Suspect background of COPD. Nonobstructive bowel gas pattern. No free air. Continued moderate to large stool burden suggesting constipation. Patient has been seen by Dr. Wei for antibiotic recommendations and patient continues on vancomycin and Zosyn. Multiple decubitus ulcers have been addressed by Dr. Wei. Temperature has improved and is running normal at this point. Heart rate in the 60s and 70s, blood pressure 110/52. White count 9.4, hemoglobin 7.2, platelet count is 63. Dr. Wei's change Zosyn to ceftriaxone. Sputum cultures positive for Klebsiella, pansensitive. Blood culture showing no growth. Review of systems: Unable to be obtained as patient is intubated Objective - Vital Signs Vital signs: Vital Signs Temp 97.4 F L 07/26/18 04:00 Pulse 61 07/26/18 08:13 Resp 12 07/26/18 07:00 BP 110/52 07/26/18 07:00 Pulse Ox 97 07/26/18 07:00 Intake & Output 07/25/18 07/26/18 07/26/18 18:59 06:59 18:59 Intake Total 2138.302 1693.278 Output Total 600 405 Balance 9054.934 1928.278 Weight 61.4 kg 61.4 kg Intake: IV 2100 1650 Magnesium Sulfate-D5w Pmx 200 1 gm In Dextrose/Water 1 100ml.bag @ 100 mls/hr IVPB Q1H [facility] Rx#: [id number] Piperacillin-Tazobactam 3 100 .375 gm In Sodium Chloride 0.9% 100 ml @ 25 mls/hr IVPB Q8HR [facility] Rx# :[id number] Potassium Chloride 20 meq 200 In Water For Injection 1 100ml.bag @ 50 mls/hr IVPB Q2H [facility] Rx#: [id number] Sodium Chloride 0.9% 1, 1200 1300 000 ml @ 100 mls/hr IV . Q10H [facility] Rx#:[id number] Vancomycin 1,000 mg In 500 250 Sodium Chloride 0.9% 250 ml @ 125 mls/hr IVPB ONCE [facility] Rx#:[id number] Intake, IV Titration 38.302 3.278 Amount Norepinephrine 32 mg In 2.667 3.278 Sodium Chloride 0.9% 218 ml @ 0.13 MCG/KG/MIN 3.74 mls/hr IV .Q24H [facility] Rx#: [id number] Propofol 1,000 mg In 35.635 Empty Bag 1 bag @ Titrate IV .Q0M [facility] Rx#: [id number] Oral 40 Output: Urine 600 405 Other: Voiding Method Indwelling Catheter Indwelling Catheter - Exam General Appearance: Sedated on mechanical ventilation, caregiver at bedside Neck HEENT: Supple, no lymphadenopathy, no thyroid enlargement, no carotid bruits. Lungs: Decreased breaths in bilaterally specially the right side with fine rhonchi positive crackles and wheezes bilaterally. Chest Wall: Decreased expansion with deep inspiration no soreness no rash no deformity. Heart: Regular rate and rhythm, S1, S2 normal, no murmur, rub or gallop. Positive tachycardia Back: Symmetric, no curvature, ROM normal, no CVA tenderness. Abdomen: Soft, non-tender, bowel sounds active all four quadrants, no masses, no organomegaly. Positive bulk of stool felt through the abdominal wall area. Extremities: Extremities normal, atraumatic, no cyanosis or edema. Pulses: 2+ and symmetric. Skin: Skin color, texture, tugor normal, no rashes or lesions. Neurologic: Sedated on mechanical ventilation still able to withdraw all her 4 extremities. - Labs CBC & Chem 7: 07/26/18 04:45 07/26/18 04:45 Labs: Abnormal Lab Results - Last 24 Hours (Table) 07/25/18 07/25/18 07/25/18 Range/Units 13:50 19:47 20:05 RBC (3.80-5.40) m/uL Hgb (11.4-16.0) gm/dL Hct (34.0-46.0) % MCHC (31.0-37.0) g/dL RDW (11.5-15.5) % Plt Count (150-450) k/uL ABG pH (7.35-7.45) ABG pCO2 (35-45) mmHg ABG pO2 (83-108) mmHg ABG Total CO2 (19-24) mmol/L Potassium 3.4 L (3.5-5.1) mmol/L Chloride (98-107) mmol/L POC Glucose (mg/dL) 62 L 198 H (75-99) mg/dL Magnesium 2.4 H (1.6-2.3) mg/dL 07/26/18 07/26/18 07/26/18 Range/Units 04:12 04:45 04:45 RBC 2.55 L (3.80-5.40) m/uL Hgb 7.2 L (11.4-16.0) gm/dL Hct 23.8 L (34.0-46.0) % MCHC 30.2 L (31.0-37.0) g/dL RDW 20.1 H (11.5-15.5) % Plt Count 63 L (150-450) k/uL ABG pH 7.49 H (7.35-7.45) ABG pCO2 31 L (35-45) mmHg ABG pO2 78 L (83-108) mmHg ABG Total CO2 25 H (19-24) mmol/L Potassium (3.5-5.1) mmol/L Chloride 115 H (98-107) mmol/L POC Glucose (mg/dL) (75-99) mg/dL Magnesium (1.6-2.3) mg/dL Microbiology - Last 24 Hours (Table) 07/24/18 20:08 Gram Stain - Final Sputum Sputum Culture - Final Klebsiella pneumoniae 07/24/18 16:43 Urine Culture - Final Urine,Catheterized 07/24/18 15:37 Blood Culture - Preliminary Blood No Growth after 24 hours Assessment and Plan Plan: 1 acute respiratory failure: Most likely from severe sepsis, aspiration pneumonia, hypoxia, hypotension, hypothermic and arrhythmia. Consult intensive care pulmonary continue current management with vent management for now. 2 sepsis with septic shock from Klebsiella aspiration pneumonia, UTI and recent sepsis with staph infection previously. Antibiotics changed to ceftriaxone and vancomycin. 3 severe right-sided pneumonia: Possibly gram-negative versus aspiration, patient was started on vancomycin and gram-negative coverage. Might add Zosyn for gram-negative coverage. 4 dysphagia: When she is off mechanical ventilation patient will need swallow evaluation again and if needed might need PEG tube. 5 severe lactic acidosis: Continue sepsis protocol repeat lactic acid and CBC. 6 hypothyroidism: Switch patient to IV thyroid medication have to does normally till she is able to take her oral intake. 7 hyperlipidemia: We'll hold her atorvastatin for now. 8 schizoaffective disorders has been on Risperdal, Cogentin and Depakote. 9 COPD: Patient has been on Pulmicort and Ventolin. 10 iron deficiency anemia: Continue patient on iron supplement. Her anemia is much worse today with hemoglobin is down 7.7 whether this is hemolytic or eluted not a clear repeat CBC and keep watching for any positive Hemoccult might require further GI workup. 11 DVT prophylaxis: Will continue patient on heparin subcutaneous. 12 GI prophylaxis: Patient will be on pantoprazole IV. 13. Fecal impaction contributing to aspiration. 14. Thrombocytopenia possibly related to Zosyn or from sepsis. Zosyn changed to ceftriaxone Discharge plan: To be determined Impression and plan of care have been directed as dictated by the signing physician. Dominique Carpio nurse practitioner acting as scribe for signing physician.
[2018-07-26 11:57] LABS: ABG Base Excess -1.3 mmol/L; ABG HCO3 24 mmol/L (21-25); ABG PCO2 39 mmHg (35-45); ABG PH 7.39 (7.35-7.45); ABG TCO2 25 mmol/L (19-24)
[2018-07-26 12:02] LABS: ABG PO2 57 mmHg (83-108)
--- NOTE | 2018-07-26 13:00 | XR ---
EXAMINATION TYPE: XR chest 1V portable DATE OF EXAM: 07/26/2018 Comparison: Earlier today Clinical History: 78-year-old female Nasogastric tube placement Findings: NG tube courses below the diaphragm. The sidehole is located below the level of the GE junction. ET t ube tip of approximately 1.6 cm from the ovidio. Left CVC tip in the lower right atrium. Continued pa tchy opacities throughout right lung. Small bilateral pleural effusions. Some increasing left basilar opacity. Impression: 1. Patchy infiltrate remains throughout the right lung with small effusion. 2. A small left pleural effusion with left basilar atelectasis and or consolidation appears to be inc reasing. 3. Correlate to exclude fluid overload state and interstitial edema.
--- NOTE | 2018-07-26 16:16 | P.PN ---
Subjective Progress Note Date: 07/26/18 This 78-year-old female patient was coming into the hospital because of altered mental status and respiratory failure. The patient was found to be by the caregivers to have difficulties with generalized weakness in her mentation seems to be altered specially over the past 24-48 hours prior to coming to the hospital. She had also difficulties and mobility and she was heart to respond. At that point the caregiver decided to bring this patient back to the hospital for further evaluation. The patient is known to me. I took care of her back in November 2018 for complications of acute hypoxic respiratory failure and acute bilateral aspiration pneumonia. Back then the patient was she is appropriate and the patient recovered and the patient was discharged home. Note that the patient at that time also had a UTI secondary to staphylococcal infection. Patient was brought to the ED for the above-mentioned reasons. Apparently there was a history of productive cough. The patient was found initially to be severely hypothermic. An ultrasound of the heart was done and it showed reduced LV filling pressures secondary to intravascular volume depletion/dehydration. There were 3 evaluation was done and the patient was found to have leukocytosis with a white cell count of 31. Her lactic acid level was at 4.0. Influenza screen was negative. Urinalysis was unremarkable. Chest x-ray showed extensive right lung pulmonary for treated consistent with an underlying pneumonia. The patient was intubated and placed on mechanical ventilator. The troponin catheter was inserted and following that the patient was sent to the ICU. An x-ray of the abdomen was also done that showed extensive moderate to severe fecal impaction within the large bowel. According to the caregiver, the patient was complaining of some abdominal distention big abdominal pain. Currently, the patient is in intensive care unit. The patient is sedated with Diprivan and she is calm and comfortable. She is on a mechanical ventilator and the patient is an assist-control mode rate of 12, tidal volume of 400 with FiO2 of 35% and a PEEP of 5. She is on pressors and she is running on levo fed at 0.03 mics per KG per minute. She is also on propofol running at 5 g per KG per minute. On today's evaluation of 07/26/2018 I'm seeing this patient for a follow-up. The patient was intubated for an extensive right lung pneumonia. The patient remains intubated on a mechanical ventilator. This morning the patient was an FiO2 of 35% with a PEEP of 5 and tidal volume of 400 with rate of 12. Follow- up chest x-ray showed improvement in the right lung pulmonary infiltrate. He was admitted location. The patient was taken off sedation. The patient a decent cough. No symptoms and orotracheal secretions. Based on that, we will give the patient is point is breathing trial with a pressure support of 5 and a PEEP of 5. After 1 hour of spontaneous breathing trial, the patient had a blood. That showed a pH of 7.39 with a pCO2 of 39 and pO2 of 57. Based on that , I extubated this patient to a Ventimask. The patient is doing well. Noted orogastric tube was removed and the patient was given a NG tube. She was having extensive amount of fecal impaction. She underwent manual disimpaction. The patient was also given lactulose to facilitate bowel activity. The follow -up chest x-ray from today still showing fecal stasis impaction still present. The patient has not been fed yet. The abdomen is nondistended. The patient is afebrile. White cell count is at 9.5. The antibiotic coverage includes a combination of Rocephin and vancomycin as the patient was found to have Klebsiella pneumonia in the sputum. He also noted a drop in the platelet counts for that reason the Zosyn was discontinued. I also took an opportunity to discontinue the subcu heparin considering related thrombocytopenia. The patient is currently wearing SCDs. She is awake. She is following some simple commands to the caregivers. Objective - Vital Signs Vital signs: Vital Signs Temp 97.8 F 07/26/18 12:00 Pulse 100 07/26/18 15:00 Resp 24 07/26/18 15:00 BP 132/71 07/26/18 15:00 Pulse Ox 91 L 07/26/18 15:00 Intake & Output 07/25/18 07/26/18 07/26/18 18:59 06:59 18:59 Intake Total 2138.302 1693.278 938.051 Output Total 600 405 715 Balance 7710.409 2023.278 223.051 Weight 61.4 kg 61.4 kg Intake: IV 2100 1650 875 Dextrose 5%-0.9% NaCl 1, 800 000 ml @ 100 mls/hr IV . Q10H [facility] Rx#:[id number] Magnesium Sulfate-D5w Pmx 200 1 gm In Dextrose/Water 1 100ml.bag @ 100 mls/hr IVPB Q1H [facility] Rx#: [id number] Piperacillin-Tazobactam 3 100 25 .375 gm In Sodium Chloride 0.9% 100 ml @ 25 mls/hr IVPB Q8HR [facility] Rx# :[id number] Potassium Chloride 20 meq 200 In Water For Injection 1 100ml.bag @ 50 mls/hr IVPB Q2H [facility] Rx#: [id number] Sodium Chloride 0.9% 1, 1200 1300 000 ml @ 100 mls/hr IV . Q10H [facility] Rx#:[id number] Vancomycin 1,000 mg In 500 250 Sodium Chloride 0.9% 250 ml @ 125 mls/hr IVPB ONCE [facility] Rx#:[id number] cefTRIAXone 2 gm In 50 Sodium Chloride 0.9% 50 ml @ 100 mls/hr IVPB Q24HR [facility] Rx#:[id number] Intake, IV Titration 38.302 3.278 63.051 Amount Norepinephrine 32 mg In 2.667 3.278 Sodium Chloride 0.9% 218 ml @ 0.13 MCG/KG/MIN 3.74 mls/hr IV .Q24H [facility] Rx#: [id number] Propofol 1,000 mg In 35.635 63.051 Empty Bag 1 bag @ Titrate IV .Q0M [facility] Rx#: [id number] Oral 40 Output: Urine 600 405 715 Other: Voiding Method Indwelling Catheter Indwelling Catheter Indwelling Catheter - Exam Patient is calm comfortable, awake, extubated currently on a Ventimask and she is calm and comfortable. She is waiting to 40% Ventimask and her pulse ox is around 91%. She has a decent cough. She opens her eyes upon repeated stimulation and sometimes she can follow some simple commands. Head exam was generally normal. There was no scleral icterus or corneal arcus. Mucous membranes were moist. Neck was supple and without jugular venous distension, thyromegaly, or carotid bruits. Carotids were easily palpable bilaterally. There was no adenopathy. Lungs sounds reveal some rhonchi on the right compared to left. Few scattered expiratory wheezes. Otherwise breath sounds are equal and symmetrical bilaterally. Cardiac exam revealed the PMI to be normally situated and sized. The rhythm was regular and no extrasystoles were noted during several minutes of auscultation. The first and second heart sounds were normal and physiologic splitting of the second heart sound was noted. There were murmurs, no rubs, clicks, or gallops. The patient had a systolic ejection murmur consistent with her underlying aortic stenosis. This is grade 3/6. Abdominal exam revealed normal bowel sounds. The abdomen was soft, non-tender, and without masses, organomegaly, or appreciable enlargement of the abdominal aorta. Bowel sounds are hypoactive and abdomen is slightly distended Examination of the extremities revealed easily palpable radial, femoral and pedal pulses. There was no cyanosis, clubbing or edema. Examination of the skin revealed no evidence of significant rashes, suspicious appearing nevi or other concerning lesions. Neurologically the patient is off sedation and the patient is awake and follows some simple commands. Not fully interactive. No focal neurological deficit at this point in time. - Labs CBC & Chem 7: 07/26/18 04:45 07/26/18 04:45 Labs: Abnormal Lab Results - Last 24 Hours (Table) 07/25/18 07/25/18 07/26/18 Range/Units 19:47 20:05 04:12 RBC (3.80-5.40) m/uL Hgb (11.4-16.0) gm/dL Hct (34.0-46.0) % MCHC (31.0-37.0) g/dL RDW (11.5-15.5) % Plt Count (150-450) k/uL ABG pH 7.49 H (7.35-7.45) ABG pCO2 31 L (35-45) mmHg ABG pO2 78 L (83-108) mmHg ABG Total CO2 25 H (19-24) mmol/L ABG O2 Saturation (94-97) % Chloride (98-107) mmol/L POC Glucose (mg/dL) 62 L 198 H (75-99) mg/dL 07/26/18 07/26/18 07/26/18 Range/Units 04:45 04:45 11:53 RBC 2.55 L (3.80-5.40) m/uL Hgb 7.2 L (11.4-16.0) gm/dL Hct 23.8 L (34.0-46.0) % MCHC 30.2 L (31.0-37.0) g/dL RDW 20.1 H (11.5-15.5) % Plt Count 63 L (150-450) k/uL ABG pH (7.35-7.45) ABG pCO2 (35-45) mmHg ABG pO2 57 L* (83-108) mmHg ABG Total CO2 25 H (19-24) mmol/L ABG O2 Saturation 89.0 L (94-97) % Chloride 115 H (98-107) mmol/L POC Glucose (mg/dL) (75-99) mg/dL Microbiology - Last 24 Hours (Table) 07/24/18 20:08 Gram Stain - Final Sputum Sputum Culture - Final Klebsiella pneumoniae 07/24/18 16:43 Urine Culture - Final Urine,Catheterized 07/24/18 15:37 Blood Culture - Preliminary Blood No Growth after 24 hours Assessment and Plan Plan: Assessment 1 acute sepsis secondary to an extensive right lung pneumonia, most likely of an aspiration pneumonia as the patient has had difficulties with swallowing and previous evaluations. She was in the hospital approximately a month ago for a similar presentation and back then the patient was treated for bilateral pneumonia. For now, the patient was cultured to have Klebsiella pneumonia in the sputum. The patient was given a combination of Rocephin and vancomycin. Chest x-ray from today was showing improvement in pulmonary infiltrates. The patient was weaned off the mechanical ventilated and the patient was extubated to Ventimask. Hemodynamically she is stable. 2 acute hypotension secondary to above, recovered and the patient is currently maintaining her on blood pressure which is covered with broad-spectrum antibiotics. 3 acute leukocytosis secondary to above, improving and the white cell count is down to 9.5 from a baseline of 31 4 acute lactic acidosis secondary to above 5 hypothermia with altered mentation secondary to above, recovered 6 chronic anemia, stable 7 seizure disorder, will be switched to liquid Depakote 8 developmental delay/Parkinson's disease/dementia/schizoaffective disorder 9 moderate degree of aortic stenosis with moderate pulmonary hypertension based on recent echocardiogram and the patient also has a mitral valve prolapse 10 difficulty with mobility and gait and the patient requires assistance with activities of daily life and 24 7 care 11 hypertension 12 hyperlipidemia 13 hypothyroidism 14 mild thrombocytopenia 15 extensive fecal impaction him a post-enema, post lactulose treatment, post mechanical disimpaction. 16 thrombocytopenia, likely medication induced. Could be consumptive secondary to underlying sepsis. Plan The patient has been extubated. The patient currently on a 40% Ventimask. Patient is on broad-spectrum antibiotics. Cultures noted from the sputum analysis. Drop in the platelet count was noted. The patient was taken off Zosyn and placed on Rocephin. The patient will also taken off the subcu heparin given SCDs to the lower extremity. Aspiration precautions. Replaced OG with an NG. Swallow evaluation to be done tomorrow. Clinically improved. White cell count is dropped. No fever for now. Hemodynamically stable. Continue the lactulose. Monitor bowel activity. Repeat SSN of the abdomen tomorrow. Repeat chest x-ray in the morning. She'll be kept in ICU and will make further recommendations based on her progress. Long-term prognosis poor baseline above-mentioned comorbidities. The patient will be kept in ICU. This is a critically care evaluation was done and morning 30 minutes. Time with Patient: Greater than 30
[2018-07-26] MEDS ORDERED: VANCOMYCIN TROUGH DUE 1 EACH MISC MISCELLANE ONE (17:00)
--- NOTE | 2018-07-26 19:15 | P.PN ---
Subjective Progress Note Date: 07/26/18 This is a 78-year-old female who was recently admitted June 17 through June 29 of which time she was treated for acute hypoxic respiratory failure with bilateral pulmonary infiltrates/aspiration pneumonia, lactic acidosis, hypothermia. Patient has underlying history of developmentally delay and has a public guardian. She was discharged home where she has 24-hour supervision and home care. She was discharged with Augmentin for another 5 days. Yesterday, patient was brought back into [facility] emergency center by EMS for altered mental status that are going on for the past few days with worsening mental status and productive cough with increasing weakness. She was found to have a rectal temperature of 89.9 and became severely hypotensive. In the emergency center, she was intubated, left IJ placed. White count 31, hemoglobin 9.6, platelet count 167, creatinine 0.7. Troponin was negative, TSH 1.6, lactic acid 4. Influenza testing negative. Urinalysis and urine drug screen negative. Chest x-ray shows new development of right-sided multifocal bronchopneumonia. Brain CT showed no definite acute process. 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 Patient is status post multiple units of saline fluid bolus and has been started on norepinephrine. Patient has been started on vancomycin and Zosyn. Repeat chest x-ray this morning reveals patchy infiltrate in the right lung compatible with pneumonia worsening from yesterday. Abdominal x-ray reveals moderate fecal retention correlate for constipation. Dislocation and erosion of the right hip region. Patient also presented with a stage III pressure ulcer to the left heel , stage II rash or ulcer to the buttock and stage II to the upper back. 07/26/2018 the patient is still on the ventilator but tolerating CPAP trial but still poor mentation patient though is slightly arousable partially open his eyes. Follows no commands. Moves right arm spontaneously. Objective - Vital Signs Vital signs: Vital Signs Temp 97.2 F L 07/26/18 16:00 Pulse 93 07/26/18 18:00 Resp 32 H 07/26/18 18:00 BP 130/73 07/26/18 18:00 Pulse Ox 97 07/26/18 18:00 Intake & Output 07/25/18 07/26/18 07/26/18 18:59 06:59 18:59 Intake Total 2138.302 2247.622 1754.051 Output Total 600 405 905 Balance 3861.999 8728.278 133.051 Weight 61.4 kg 61.4 kg Intake: IV 2100 1650 975 Dextrose 5%-0.9% NaCl 1, 900 000 ml @ 100 mls/hr IV . Q10H [facility] Rx#:[id number] Magnesium Sulfate-D5w Pmx 200 1 gm In Dextrose/Water 1 100ml.bag @ 100 mls/hr IVPB Q1H [facility] Rx#: [id number] Piperacillin-Tazobactam 3 100 25 .375 gm In Sodium Chloride 0.9% 100 ml @ 25 mls/hr IVPB Q8HR [facility] Rx# :[id number] Potassium Chloride 20 meq 200 In Water For Injection 1 100ml.bag @ 50 mls/hr IVPB Q2H [facility] Rx#: [id number] Sodium Chloride 0.9% 1, 1200 1300 000 ml @ 100 mls/hr IV . Q10H [facility] Rx#:[id number] Vancomycin 1,000 mg In 500 250 Sodium Chloride 0.9% 250 ml @ 125 mls/hr IVPB [facility] Rx#:[id number] cefTRIAXone 2 gm In 50 Sodium Chloride 0.9% 50 ml @ 100 mls/hr IVPB Q24HR [facility] Rx#:[id number] Intake, IV Titration 38.302 3.278 63.051 Amount Norepinephrine 32 mg In 2.667 3.278 Sodium Chloride 0.9% 218 ml @ 0.13 MCG/KG/MIN 3.74 mls/hr IV .Q24H [facility] Rx#: [id number] Propofol 1,000 mg In 35.635 63.051 Empty Bag 1 bag @ Titrate IV .Q0M [facility] Rx#: [id number] Oral 40 Output: Urine 600 405 905 Other: Voiding Method Indwelling Catheter Indwelling Catheter Indwelling Catheter - Exam Gen: This is a 78-year-old female. She is in the ICU bed, intubated and on mechanical ventilation. HEENT: Head is atraumatic, normocephalic. Pupils equal, round. Sclerae is anicteric. NECK: Supple. No JVD. No lymphadenopathy. No thyromegaly. LUNGS: Decreased on the right side with rhonchi. No intercostal retractions. HEART: Regular rate and rhythm. No murmur. ABDOMEN: Soft. Bowel sounds are present. No tenderness. EXTREMITIES: No pedal edema. No calf tenderness. Dorsalis pedis +2 bilaterally. SKIN: stage III pressure ulcer to the left heel, stage II rash or ulcer to the buttock and stage II to the upper back. NEUROLOGICAL: Patient is intubated. - Labs CBC & Chem 7: 07/26/18 04:45 07/26/18 04:45 Labs: Abnormal Lab Results - Last 24 Hours (Table) 07/25/18 07/25/18 07/26/18 Range/Units 19:47 20:05 04:12 RBC (3.80-5.40) m/uL Hgb (11.4-16.0) gm/dL Hct (34.0-46.0) % MCHC (31.0-37.0) g/dL RDW (11.5-15.5) % Plt Count (150-450) k/uL ABG pH 7.49 H (7.35-7.45) ABG pCO2 31 L (35-45) mmHg ABG pO2 78 L (83-108) mmHg ABG Total CO2 25 H (19-24) mmol/L ABG O2 Saturation (94-97) % Chloride (98-107) mmol/L POC Glucose (mg/dL) 62 L 198 H (75-99) mg/dL 07/26/18 07/26/18 07/26/18 Range/Units 04:45 04:45 11:53 RBC 2.55 L (3.80-5.40) m/uL Hgb 7.2 L (11.4-16.0) gm/dL Hct 23.8 L (34.0-46.0) % MCHC 30.2 L (31.0-37.0) g/dL RDW 20.1 H (11.5-15.5) % Plt Count 63 L (150-450) k/uL ABG pH (7.35-7.45) ABG pCO2 (35-45) mmHg ABG pO2 57 L* (83-108) mmHg ABG Total CO2 25 H (19-24) mmol/L ABG O2 Saturation 89.0 L (94-97) % Chloride 115 H (98-107) mmol/L POC Glucose (mg/dL) (75-99) mg/dL Microbiology - Last 24 Hours (Table) 07/24/18 15:37 Blood Culture - Preliminary Blood No Growth after 48 hours 07/24/18 20:08 Gram Stain - Final Sputum Sputum Culture - Final Klebsiella pneumoniae 07/24/18 16:43 Urine Culture - Final Urine,Catheterized Laboratory Results WBC 9.5 k/uL (3.8-10.6) 07/26/18 04:45 RBC 2.55 m/uL (3.80-5.40) L 07/26/18 04:45 Hgb 7.2 gm/dL (11.4-16.0) L 07/26/18 04:45 Hct 23.8 % (34.0-46.0) L 07/26/18 04:45 MCV 93.4 fL (80.0-100.0) 07/26/18 04:45 MCH 28.2 pg (25.0-35.0) 07/26/18 04:45 MCHC 30.2 g/dL (31.0-37.0) L 07/26/18 04:45 RDW 20.1 % (11.5-15.5) H 07/26/18 04:45 Plt Count 63 k/uL (150-450) L 07/26/18 04:45 Neutrophils % 78 % 07/26/18 04:45 Neutrophils % (Manual) 63 % 07/24/18 15:37 Band Neutrophils % 24 % 07/24/18 15:37 Lymphocytes % 17 % 07/26/18 04:45 Lymphocytes % (Manual) 6 % 07/24/18 15:37 Monocytes % 4 % 07/26/18 04:45 Monocytes % (Manual) 2 % 07/24/18 15:37 Eosinophils % 1 % 07/26/18 04:45 Basophils % 0 % 07/26/18 04:45 Metamyelocytes % 3 % 07/24/18 15:37 Myelocytes % 3 % 07/24/18 15:37 Neutrophils # 7.4 k/uL (1.3-7.7) 07/26/18 04:45 Neutrophils # (Manual) 26.90 k/uL (1.3-7.7) H 07/24/18 15:37 Lymphocytes # 1.6 k/uL (1.0-4.8) 07/26/18 04:45 Lymphocytes # (Manual) 1.86 k/uL (1.0-4.8) 07/24/18 15:37 Monocytes # 0.4 k/uL (0-1.0) 07/26/18 04:45 Monocytes # (Manual) 0.62 k/uL (0-1.0) 07/24/18 15:37 Eosinophils # 0.1 k/uL (0-0.7) 07/26/18 04:45 Basophils # 0.0 k/uL (0-0.2) 07/26/18 04:45 Metamyelocytes # (Man) 0.93 k/uL (0) H 07/24/18 15:37 Myelocytes # (Manual) 0.93 k/uL (0) H 07/24/18 15:37 Nucleated RBCs 0 /100 WBC (0-0) 07/24/18 15:37 Manual Slide Review Performed 07/26/18 04:45 Toxic Granulation Present 07/24/18 15:37 Toxic Vacuolation Present 07/24/18 15:37 Large Platelets Present 07/24/18 15:37 Polychromasia Present 07/24/18 15:37 Hypochromasia Marked 07/26/18 04:45 Poikilocytosis (manual Present 07/24/18 15:37 Anisocytosis Moderate 07/26/18 04:45 Macrocytosis Slight 07/26/18 04:45 PT 10.0 sec (9.0-12.0) 07/24/18 15:37 INR 0.9 (<1.2) 07/24/18 15:37 APTT 26.6 sec (22.0-30.0) 07/24/18 15:37 Sample Site Left Radial 07/26/18 11:53 ABG pH 7.39 (7.35-7.45) 07/26/18 11:53 ABG pCO2 39 mmHg (35-45) 07/26/18 11:53 ABG pO2 57 mmHg (83-108) L* 07/26/18 11:53 ABG HCO3 24 mmol/L (21-25) 07/26/18 11:53 ABG Total CO2 25 mmol/L (19-24) H 07/26/18 11:53 ABG O2 Saturation 89.0 % (94-97) L 07/26/18 11:53 ABG Base Excess -1.3 mmol/L 07/26/18 11:53 Ramez Test Yes 07/26/18 11:53 FiO2 35 % 07/26/18 11:53 Sodium 142 mmol/L (137-145) 07/26/18 04:45 Potassium 4.4 mmol/L (3.5-5.1) 07/26/18 04:45 Chloride 115 mmol/L (98-107) H 07/26/18 04:45 Carbon Dioxide 25 mmol/L (22-30) 07/26/18 04:45 Anion Gap 2 mmol/L 07/26/18 04:45 BUN 14 mg/dL (7-17) 07/26/18 04:45 Creatinine 0.78 mg/dL (0.52-1.04) 07/26/18 04:45 Est GFR (CKD-EPI)AfAm 85 (>60 ml/min/1.73 sqM) 07/26/18 04:45 Est GFR (CKD-EPI)NonAf 74 (>60 ml/min/1.73 sqM) 07/26/18 04:45 Glucose 87 mg/dL (74-99) 07/26/18 04:45 POC Glucose (mg/dL) 87 mg/dL (75-99) 07/26/18 04:04 POC Glu Lawyers Selena Garcia 07/26/18 04:04 Lactic Ac Sepsis Rflx Y 07/24/18 16:23 Plasma Lactic Acid Jason 1.2 mmol/L (0.7-2.0) 07/24/18 19:54 Calcium 8.4 mg/dL (8.4-10.2) 07/26/18 04:45 Phosphorus 3.0 mg/dL (2.5-4.5) 07/26/18 04:45 Magnesium 2.3 mg/dL (1.6-2.3) 07/26/18 04:45 Total Bilirubin 0.5 mg/dL (0.2-1.3) 07/24/18 15:37 AST 62 U/L (14-36) H 07/24/18 15:37 ALT 50 U/L (9-52) 07/24/18 15:37 Alkaline Phosphatase 138 U/L (38-126) H 07/24/18 15:37 Ammonia <9 umol/L (<30) 07/24/18 16:35 Total Creatine Kinase 376 U/L (30-135) H 07/24/18 15:37 CK-MB (CK-2) 9.3 ng/mL (0.0-2.4) H 07/24/18 15:37 CK-MB (CK-2) Rel Index 2.5 07/24/18 15:37 Troponin I <0.012 ng/mL (0.000-0.034) 07/24/18 15:37 Total Protein 5.8 g/dL (6.3-8.2) L 07/24/18 15:37 Albumin 2.8 g/dL (3.5-5.0) L 07/24/18 15:37 Lipase 28 U/L (23-300) 07/24/18 15:37 Procalcitonin 1.37 ng/mL (0.02-0.09) H 07/24/18 15:37 TSH 1.600 mIU/L (0.465-4.680) 07/24/18 15:37 Urine Color Yellow 07/24/18 16:43 Urine Appearance Clear (Clear) 07/24/18 16:43 Urine pH 5.5 (5.0-8.0) 07/24/18 16:43 Ur Specific [place] 1.010 (1.001-1.035) 07/24/18 16:43 Urine Protein Negative (Negative) 07/24/18 16:43 Urine Glucose (UA) Negative (Negative) 07/24/18 16:43 Urine Ketones Negative (Negative) 07/24/18 16:43 Urine Blood Negative (Negative) 07/24/18 16:43 Urine Nitrite Negative (Negative) 07/24/18 16:43 Urine Bilirubin Negative (Negative) 07/24/18 16:43 Urine Urobilinogen <2.0 mg/dL (<2.0) 07/24/18 16:43 Ur Leukocyte Esterase Negative (Negative) 07/24/18 16:43 Vancomycin Trough 16.7 ug/mL 07/26/18 17:10 Urine Opiates Screen Not Detected (NotDetected) 07/24/18 16:43 Ur Oxycodone Screen Not Detected (NotDetected) 07/24/18 16:43 Urine Methadone Screen Not Detected (NotDetected) 07/24/18 16:43 Ur Propoxyphene Screen Not Detected (NotDetected) 07/24/18 16:43 Ur Barbiturates Screen Not Detected (NotDetected) 07/24/18 16:43 U Tricyclic Antidepress Not Detected (NotDetected) 07/24/18 16:43 Ur Phencyclidine Scrn Not Detected (NotDetected) 07/24/18 16:43 Ur Amphetamines Screen Not Detected (NotDetected) 07/24/18 16:43 U Methamphetamines Scrn Not Detected (NotDetected) 07/24/18 16:43 U Benzodiazepines Scrn Not Detected (NotDetected) 07/24/18 16:43 Urine Cocaine Screen Not Detected (NotDetected) 07/24/18 16:43 U Marijuana (THC) Screen Not Detected (NotDetected) 07/24/18 16:43 Influenza Type A RNA Not Detected (Not Detectd) 07/24/18 15:37 Influenza Type B (PCR) Not Detected (Not Detectd) 07/24/18 15:37 Microbiology 07/24/18 15:37 Blood Blood Culture - Preliminary No Growth after 48 hours 07/24/18 20:08 Sputum Gram Stain - Final 07/24/18 20:08 Sputum Sputum Culture - Final Klebsiella pneumoniae 07/24/18 16:43 Urine,Catheterized Urine Culture - Final Assessment and Plan (1) Acute UTI Current Visit: No Status: Acute Code(s): N39.0 - URINARY TRACT INFECTION, SITE NOT SPECIFIED SNOMED Code(s): 838054064 (2) Pneumonia Narrative/Plan: As noted patient is intubated today mechanically ventilated and the low dose of vasopressor at this time. There is concerned it could've been aspiration and consequently treatment for this is penalized with vancomycin and Zosyn given that she is coming from a care facility. The pressure ulcerations are being treated with the optifoam dressings and offloading. Cultures are process. It may further help direct antimicrobial therapy. She is on 35% FiO2 and PEEP of 5 and hopefully will rapidly improved. The significant hypothermia has also resolved with resuscitation and warming. July 26 2018 patient is had some improvement of her pulmonary status is now on a CPAP trial as you tolerating relatively well. However still has somewhat poor mentation. She seems quite comfortable and has some spontaneous movements. Is evidence of the Serratia infection with pneumonia responding well to current antimicrobial therapy of Rocephin. Wounds are being treated with optifoam dressings. She is also on a specialty bed. The case is discussed with her primary caregiver and hopefully she will get an air mattress overlay for her hospital bed at home to help her with her current pressure ulcerations. Antibiotic therapy is altered today from Zosyn to Rocephin and that the susceptibility is available for the Serratia and there is spasticity and dropped her platelets which is likely from Zosyn. Current Visit: No Status: Acute Code(s): J18.9 - PNEUMONIA, UNSPECIFIED ORGANISM SNOMED Code(s): 104235629
[2018-07-26 20:21] LABS: Glucose,Whole Blood 88 mg/dL (75-99)
[2018-07-26] MEDS: VALPROIC ACID ORAL SOLN 250 MG/5 ML CUP NG-TUBE SCH (21:51)
[2018-07-27 00:01] LABS: Glucose,Whole Blood 98 mg/dL (75-99)
[2018-07-27] MEDS: DEXTROSE 5%-0.9% NACL 1,000 ML IV SCH ×3 (02:30→15:01)
[2018-07-27] MEDS: NOREPINEPHRINE 32 MG in SODIUM CHLORIDE 0.9% 218 ML IV SCH (03:38)
[2018-07-27 04:04] LABS: Glucose,Whole Blood 85 mg/dL (75-99)
[2018-07-27 04:37] LABS: Anisocytosis Slight; Basophils % (A) 0 %; Eosinophils # (A) 0.1 k/uL (0-0.7); Eosinophils % (A) 1 %; HCT 26.2 % (34.0-46.0); HGB 7.8 gm/dL (11.4-16.0); Hypochromasia Moderate; Lymphocytes # (A) 1.1 k/uL (1.0-4.8); Lymphocytes % (A) 16 %; MCH 27.8 pg (25.0-35.0); MCHC 29.9 g/dL (31.0-37.0); Mean Platelet Volume 9.9; Monocytes # (A) 0.3 k/uL (0-1.0); Monocytes % (A) 4 %; Neutrophils # (A) 5.4 k/uL (1.3-7.7); Neutrophils % (A) 78 %; RBC 2.82 m/uL (3.80-5.40); RDW 19.6 % (11.5-15.5); WBC 6.9 k/uL (3.8-10.6)
[2018-07-27 04:38] LABS: Platelet Count 56 k/uL (150-450)
[2018-07-27 04:41] LABS: Anion Gap 3 mmol/L; Blood Urea Nitrogen 8 mg/dL (7-17); Calcium 7.9 mg/dL (8.4-10.2); Carbon Dioxide 27 mmol/L (22-30); Chloride 110 mmol/L (98-107); Glucose 82 mg/dL (74-99); Magnesium 1.8 mg/dL (1.6-2.3); Sodium 140 mmol/L (137-145)
[2018-07-27] MEDS: VANCOMYCIN 750 MG in SODIUM CHLORIDE 0.9% 250 ML IVPB SCH ×2 (05:26→17:30)
[2018-07-27] MEDS: LEVOTHYROXINE 125 MCG TAB PO SCH (05:30)
[2018-07-27] MEDS ORDERED: Magnesium Replacement Protocol 1 EACH MISC MISCELLANE PRN (06:28)
[2018-07-27] MEDS: MAGNESIUM SULFATE-D5W PMX 1 GM in DEXTROSE/WATER 1 100ML.BAG IVPB SCH ×2 (06:47→08:40)
[2018-07-27] MEDS: POTASSIUM BICARBONATE/CIT AC 20 MEQ TABLET.EFF NG-TUBE SCH ×4 (06:47→16:25)
[2018-07-27] MEDS: ALBUTEROL NEBULIZED 2.5 MG/3 ML INHALATION SCH ×4 (08:21→20:22)
[2018-07-27] MEDS: BUDESONIDE 0.25 MG/2 ML NEBU INHALATION SCH ×3 (08:22→20:22)
[2018-07-27] MEDS: ASPIRIN 81 MG PO SCH (08:44)
[2018-07-27] MEDS: ATORVASTATIN 10 MG TAB PO SCH (08:44)
[2018-07-27] MEDS: PANTOPRAZOLE 40 MG/10 ML VIAL IV SCH (08:46)
[2018-07-27] MEDS: FERROUS SULFATE ORAL ELIXIR 300 MG/5 ML CUP PO SCH ×2 (08:46→21:54)
[2018-07-27] MEDS: LACTULOSE 20 GM/30 ML CUP PO SCH (08:46)
[2018-07-27] MEDS: BENZTROPINE MESYLATE 0.5 MG TAB PO SCH ×2 (08:46→21:54)
[2018-07-27] MEDS: FUROSEMIDE 20 MG TAB PO SCH (08:46)
[2018-07-27] MEDS: VALPROIC ACID ORAL SOLN 250 MG/5 ML CUP NG-TUBE SCH ×2 (08:47→21:54)
[2018-07-27] MEDS: risperiDONE 1 MG TAB PO SCH ×2 (08:47→21:54)
--- NOTE | 2018-07-27 10:52 | XR ---
EXAMINATION TYPE: XR chest 1V portable DATE OF EXAM: 07/27/2018 COMPARISON: 07/26/2018 INDICATION: Fecal impaction right lung pneumonia TECHNIQUE: Single frontal view of the chest is obtained. FINDINGS: The heart size is normal. The pulmonary vasculature is normal. There is worsening right upper lobe infiltrate. There is thickening along the minor fissure on the ri ght. Small right pleural effusion is present. Small left pleural effusion appears stable. Nasogastric tube transverses the thorax the tip in the left upper quadrant of the abdomen. The endotracheal tube is been removed. Left central venous catheter is present with the tip in the distal superior vena ca va region. This may have been pulled back slightly. This could be projectional. There is limitation a t the right apex due to overlying mandible. IMPRESSION: 1. Worsening right upper lobe infiltrate can be compatible with pneumonia. 2. Small bilateral pleural effusions. 3. Lines and catheters discussed above.
[2018-07-27 11:56] LABS: Glucose,Whole Blood 103 mg/dL (75-99)
--- NOTE | 2018-07-27 12:38 | P.PN ---
Subjective Progress Note Date: 07/27/18 78-year-old female who has been seen Dr. Means lately who was in the hospital not too long ago with sepsis and altered mental status and sepsis seems like she had urinary tract infection from cystitis with positive blood culture for staph infection. Patient had an episode of acute hypoxic respiratory failure was on BiPAP at the time and have acute lactic acidosis with severe hypokalemia and acute kidney injury also had pancytopenia due to sepsis is known to have development delay and history of schizoaffective disorders. Patient left the hospital on June 29. Patient found by the caregiver to have significant alter mental status with decline in mobility and her respond. Not been able to transfer herself patient brought to the emergency department [place] via EMS was seen and evaluated she was hypothermic, hypoxic, having significant shortness of breath mildly elevated troponin and blood pressure declined significantly with significant elevated lactic acid. Patient was intubated and admitted to the intensive care unit afterward for the above problem. 07/25/2018: Patient is more stable hemodynamically, blood pressure is much better controlled, still on vasopressor, still intubated on mechanical ventilation but temperature has improved and her vitals are much better respond to the current dose of IV antibiotic between Vanco and Zosyn. The caregiver was informed that if patient had problem with aspiration and possibility of dysphagia might require PEG tube something will be communicating with the legal guardian for possibility after she is extubated. 07/26: Patient remains intubated and on mechanical ventilation with tidal volume 400, FiO2 35 and PEEP of 5. She has been off levo fed since 745 last evening. She is status post Dulcolax suppository, lactulose and soapsuds enema was given this morning. She has had 3 bowel movements and was disimpacted yesterday. Abdominal x-ray this morning reveals ET tube may need to be pulled back slightly. Patchy infiltrate throughout the right lung persist. Small bilateral pleural effusions and additional left basilar atelectasis and/or consolidation. Suspect background of COPD. Nonobstructive bowel gas pattern. No free air. Continued moderate to large stool burden suggesting constipation. Patient has been seen by Dr. Wei for antibiotic recommendations and patient continues on vancomycin and Zosyn. Multiple decubitus ulcers have been addressed by Dr. Wei. Temperature has improved and is running normal at this point. Heart rate in the 60s and 70s, blood pressure 110/52. White count 9.4, hemoglobin 7.2, platelet count is 63. Dr. Wei's change Zosyn to ceftriaxone. Sputum cultures positive for Klebsiella, pansensitive. Blood culture showing no growth. 07/27: Patient was extubated yesterday afternoon. She remains off vasopressors. She did have a lot of liquid stools last evening. Urine output is at 70 mL per hour. She is currently not on sedation and not responsive. Anticipate that to feedings will be started today as NG tube remains in place. She is currently on Ventimask at FiO2 of 55 pulse oxing 95%. Temperature remains on the lower side at 96.5, heart rates in the 80s and 90s, respirations in the 20s , blood pressure 120/60. White count is normalized, hemoglobin 7.8 and platelet count 78. Potassium is 3.0 and replaced. Repeat chest x-ray shows worsening right upper lobe infiltrate can be compatible with pneumonia. Small bilateral pleural effusions. She is currently on IV antibiotics with ceftriaxone and vancomycin. Caregiver is at the bedside and has been updated. Review of systems: Unable to be obtained as patient is intubated Objective - Vital Signs Vital signs: Vital Signs Temp 96.5 F L 07/27/18 08:00 Pulse 94 07/27/18 10:00 Resp 25 H 07/27/18 10:00 BP 122/65 07/27/18 10:00 Pulse Ox 93 L 07/27/18 10:00 Intake & Output 07/26/18 07/27/18 07/27/18 18:59 06:59 18:59 Intake Total 3189.094 8419 500 Output Total 1040 935 375 Balance 323.051 840 125 Weight 66.1 kg Intake: IV 1300 1775 500 Dextrose 5%-0.9% NaCl 1, 1100 1300 300 000 ml @ 100 mls/hr IV . Q10H [facility] Rx#:[id number] Magnesium Sulfate-D5w Pmx 100 100 1 gm In Dextrose/Water 1 100ml.bag @ 100 mls/hr IVPB Q1H [facility] Rx#: [id number] Piperacillin-Tazobactam 3 25 .375 gm In Sodium Chloride 0.9% 100 ml @ 25 mls/hr IVPB Q8HR [facility] Rx# :[id number] Vancomycin 750 mg In 125 375 Sodium Chloride 0.9% 250 ml @ 125 mls/hr IVPB Q12H [facility] Rx#:[id number] cefTRIAXone 2 gm In 50 100 Sodium Chloride 0.9% 50 ml @ 100 mls/hr IVPB Q24HR [facility] Rx#:[id number] Intake, IV Titration 63.051 Amount Propofol 1,000 mg In 63.051 Empty Bag 1 bag @ Titrate IV .Q0M [facility] Rx#: [id number] Output: Urine 1040 935 375 Other: Voiding Method Indwelling Catheter Indwelling Catheter Indwelling Catheter - Exam General Appearance: Patient is unresponsive to verbal or painful stimuli caregiver at bedside Neck HEENT: Supple, no lymphadenopathy, no thyroid enlargement, no carotid bruits. Lungs: Decreased breaths in bilaterally specially the right side with fine rhonchi positive crackles and wheezes bilaterally. Chest Wall: Decreased expansion with deep inspiration no soreness no rash no deformity. Heart: Regular rate and rhythm, S1, S2 normal, no murmur, rub or gallop. Positive tachycardia Back: Symmetric, no curvature, ROM normal, no CVA tenderness. Abdomen: Soft, non-tender, bowel sounds active all four quadrants, no masses, no organomegaly. Fecal bulk seems to be resolved. Extremities: Extremities normal, atraumatic, no cyanosis or edema. Pulses: 2+ and symmetric. Skin: Skin color, texture, tugor normal, no rashes or lesions. Neurologic: No response to verbal or painful stimuli. - Labs CBC & Chem 7: 07/27/18 04:20 07/27/18 04:20 Labs: Abnormal Lab Results - Last 24 Hours (Table) 07/26/18 07/27/18 07/27/18 Range/Units 11:53 04:20 04:20 RBC 2.82 L (3.80-5.40) m/uL Hgb 7.8 L (11.4-16.0) gm/dL Hct 26.2 L (34.0-46.0) % MCHC 29.9 L (31.0-37.0) g/dL RDW 19.6 H (11.5-15.5) % Plt Count 56 L (150-450) k/uL ABG pO2 57 L* (83-108) mmHg ABG Total CO2 25 H (19-24) mmol/L ABG O2 Saturation 89.0 L (94-97) % Potassium 3.0 L (3.5-5.1) mmol/L Chloride 110 H (98-107) mmol/L Calcium 7.9 L (8.4-10.2) mg/dL Microbiology - Last 24 Hours (Table) 07/24/18 15:37 Blood Culture - Preliminary Blood No Growth after 48 hours 07/24/18 20:08 Gram Stain - Final Sputum Sputum Culture - Final Klebsiella pneumoniae Assessment and Plan Plan: 1 acute hypoxic respiratory failure secondary to aspiration pneumonia with severe sepsis, septic shock. Patient has been extubated. Consult with Dr. Vijaya ambrosio. 2 sepsis with septic shock from Klebsiella aspiration pneumonia, UTI and recent sepsis with staph infection previously. Antibiotics changed to ceftriaxone and vancomycin. 3 severe right-sided pneumonia: Possibly gram-negative versus aspiration, patient was started on vancomycin and rocephin. 4 dysphagia: Speech therapy to evaluate on Monday and if needed might need PEG tube. 5 severe lactic acidosis: Continue sepsis protocol repeat lactic acid and CBC. 6 hypothyroidism: Switch patient to IV thyroid medication have to does normally till she is able to take her oral intake. 7 hyperlipidemia: We'll hold her atorvastatin for now. 8 schizoaffective disorders has been on Risperdal, Cogentin and Depakote. 9 COPD: Patient has been on Pulmicort and Ventolin. 10 iron deficiency anemia. 11 DVT prophylaxis: Will continue patient on heparin subcutaneous. 12 GI prophylaxis: Patient will be on pantoprazole IV. 13. Fecal impaction contributing to aspiration. 14. Thrombocytopenia possibly related to Zosyn or from sepsis. Zosyn changed to ceftriaxone 15. Metabolic encephalopathy, possible anoxic encephalopathy. Discharge plan: To be determined Impression and plan of care have been directed as dictated by the signing physician. Dominique Carpio nurse practitioner acting as scribe for signing physician.
[2018-07-27] MEDS ORDERED: Potassium Replacement Protocol 1 EACH MISC MISCELLANE PRN (13:38)
[2018-07-27] MEDS ORDERED: FUROSEMIDE 10 MG/ML 4 ML VIAL IV STA (14:46)
--- NOTE | 2018-07-27 14:46 | P.PN ---
Subjective Progress Note Date: 07/27/18 This 78-year-old female patient was coming into the hospital because of altered mental status and respiratory failure. The patient was found to be by the caregivers to have difficulties with generalized weakness in her mentation seems to be altered specially over the past 24-48 hours prior to coming to the hospital. She had also difficulties and mobility and she was heart to respond. At that point the caregiver decided to bring this patient back to the hospital for further evaluation. The patient is known to me. I took care of her back in November 2018 for complications of acute hypoxic respiratory failure and acute bilateral aspiration pneumonia. Back then the patient was she is appropriate and the patient recovered and the patient was discharged home. Note that the patient at that time also had a UTI secondary to staphylococcal infection. Patient was brought to the ED for the above-mentioned reasons. Apparently there was a history of productive cough. The patient was found initially to be severely hypothermic. An ultrasound of the heart was done and it showed reduced LV filling pressures secondary to intravascular volume depletion/dehydration. There were 3 evaluation was done and the patient was found to have leukocytosis with a white cell count of 31. Her lactic acid level was at 4.0. Influenza screen was negative. Urinalysis was unremarkable. Chest x-ray showed extensive right lung pulmonary for treated consistent with an underlying pneumonia. The patient was intubated and placed on mechanical ventilator. The troponin catheter was inserted and following that the patient was sent to the ICU. An x-ray of the abdomen was also done that showed extensive moderate to severe fecal impaction within the large bowel. According to the caregiver, the patient was complaining of some abdominal distention big abdominal pain. Currently, the patient is in intensive care unit. The patient is sedated with Diprivan and she is calm and comfortable. She is on a mechanical ventilator and the patient is an assist-control mode rate of 12, tidal volume of 400 with FiO2 of 35% and a PEEP of 5. She is on pressors and she is running on levo fed at 0.03 mics per KG per minute. She is also on propofol running at 5 g per KG per minute. On today's evaluation of 07/26/2018 I'm seeing this patient for a follow-up. The patient was intubated for an extensive right lung pneumonia. The patient remains intubated on a mechanical ventilator. This morning the patient was an FiO2 of 35% with a PEEP of 5 and tidal volume of 400 with rate of 12. Follow- up chest x-ray showed improvement in the right lung pulmonary infiltrate. He was admitted location. The patient was taken off sedation. The patient a decent cough. No symptoms and orotracheal secretions. Based on that, we will give the patient is point is breathing trial with a pressure support of 5 and a PEEP of 5. After 1 hour of spontaneous breathing trial, the patient had a blood. That showed a pH of 7.39 with a pCO2 of 39 and pO2 of 57. Based on that , I extubated this patient to a Ventimask. The patient is doing well. Noted orogastric tube was removed and the patient was given a NG tube. She was having extensive amount of fecal impaction. She underwent manual disimpaction. The patient was also given lactulose to facilitate bowel activity. The follow -up chest x-ray from today still showing fecal stasis impaction still present. The patient has not been fed yet. The abdomen is nondistended. The patient is afebrile. White cell count is at 9.5. The antibiotic coverage includes a combination of Rocephin and vancomycin as the patient was found to have Klebsiella pneumonia in the sputum. He also noted a drop in the platelet counts for that reason the Zosyn was discontinued. I also took an opportunity to discontinue the subcu heparin considering related thrombocytopenia. The patient is currently wearing SCDs. She is awake. She is following some simple commands to the caregivers. On today's evaluation of 07/27/2018, I'm seeing this patient for a follow-up. As mentioned, the patient was extubated yesterday and she was on a Ventimask 40 % throughout the night. This morning she was still on 40% Ventimask. She had a congested cough. Rest or secretions were mainly in the upper airway and the lower lungs were essentially more clear. Based on that, we attempted the tracheal suctioning. Subsequently the patient became more short of breath and she had to be placed on BiPAP at a pressure of 12/5 centimeters of water with an FiO2 of 100%. The patient is looking better while on the BiPAP. She started an NG tube in place. She had had a bowel movement that the patient is being given laxatives. She'll feeds will be started today at a very low rate. No fever. No chills. The chest x-ray from today shows some worsening of the right upper lobe pulmonary infiltrate compatible with pneumonia. There are small better pleural effusion. NG tube is in a good location. The patient remains on a combination of IV Rocephin 2 g every 24 hours and IV vancomycin. Antibiotics have been modified as the patient was found to have Klebsiella pneumoniae in the sputum. She is lethargic. At times she arouses yet she is not fully interactive at this point in time. Platelet counts are remaining low. No other events otherwise for now. Yet again, the patient was found to be hypothermic and the patient was given external warming. Temperature dropped as low as 96.5. Objective - Vital Signs Vital signs: Vital Signs Temp 95.6 F L 07/27/18 12:00 Pulse 71 07/27/18 13:00 Resp 18 07/27/18 13:00 BP 130/71 07/27/18 13:00 Pulse Ox 99 07/27/18 13:00 Intake & Output 07/26/18 07/27/18 07/27/18 18:59 06:59 18:59 Intake Total 3608.526 7499 800 Output Total 5319 046 4999 Balance 323.051 840 -625 Weight 66.1 kg 66.1 kg Intake: IV 1300 1775 800 Dextrose 5%-0.9% NaCl 1, 1100 1300 600 000 ml @ 100 mls/hr IV . Q10H DE[facility] Rx#:[id number] Magnesium Sulfate-D5w Pmx 100 100 1 gm In Dextrose/Water 1 100ml.bag @ 100 mls/hr IVPB Q1H DEANNA Rx#: [id number] Piperacillin-Tazobactam 3 25 .375 gm In Sodium Chloride 0.9% 100 ml @ 25 mls/hr IVPB Q8HR [facility]ANNA Rx# :[id number] Vancomycin 750 mg In 125 375 Sodium Chloride 0.9% 250 ml @ 125 mls/hr IVPB Q12H [facility]AN[facility] Rx#:[id number] cefTRIAXone 2 gm In 50 100 Sodium Chloride 0.9% 50 ml @ 100 mls/hr IVPB Q24HR [facility]ANNA Rx#:[id number] Intake, IV Titration 63.051 Amount Propofol 1,000 mg In 63.051 Empty Bag 1 bag @ Titrate IV .Q0M DEANNA Rx#: [id number] Output: Urine 4409 396 3053 Other: Voiding Method Indwelling Catheter Indwelling Catheter Indwelling Catheter - Exam Patient is calm comfortable, awake, extubated currently on a BiPAP at a pressure of 12/5 cm of water.. She has a weak cough. She opens her eyes upon repeated stimulation and sometimes she can follow some simple commands. Head exam was generally normal. There was no scleral icterus or corneal arcus. Mucous membranes were moist. Neck was supple and without jugular venous distension, thyromegaly, or carotid bruits. Carotids were easily palpable bilaterally. There was no adenopathy. Lungs sounds reveal some rhonchi on the right compared to left. Few scattered expiratory wheezes. Otherwise breath sounds are equal and symmetrical bilaterally. Cardiac exam revealed the PMI to be normally situated and sized. The rhythm was regular and no extrasystoles were noted during several minutes of auscultation. The first and second heart sounds were normal and physiologic splitting of the second heart sound was noted. There were murmurs, no rubs, clicks, or gallops. The patient had a systolic ejection murmur consistent with her underlying aortic stenosis. This is grade 3/6. Abdominal exam revealed normal bowel sounds. The abdomen was soft, non-tender, and without masses, organomegaly, or appreciable enlargement of the abdominal aorta. Bowel sounds are hypoactive and abdomen is slightly distended Examination of the extremities revealed easily palpable radial, femoral and pedal pulses. There was no cyanosis, clubbing or edema. Examination of the skin revealed no evidence of significant rashes, suspicious appearing nevi or other concerning lesions. Neurologically the patient is off sedation and the patient is awake and follows some simple commands. Not fully interactive. No focal neurological deficit at this point in time. - Labs CBC & Chem 7: 07/27/18 04:20 07/27/18 12:32 Labs: Abnormal Lab Results - Last 24 Hours (Table) 07/27/18 07/27/18 07/27/18 Range/Units 04:20 04:20 11:55 RBC 2.82 L (3.80-5.40) m/uL Hgb 7.8 L (11.4-16.0) gm/dL Hct 26.2 L (34.0-46.0) % MCHC 29.9 L (31.0-37.0) g/dL RDW 19.6 H (11.5-15.5) % Plt Count 56 L (150-450) k/uL Potassium 3.0 L (3.5-5.1) mmol/L Chloride 110 H (98-107) mmol/L POC Glucose (mg/dL) 103 H (75-99) mg/dL Calcium 7.9 L (8.4-10.2) mg/dL 07/27/18 Range/Units 12:32 RBC (3.80-5.40) m/uL Hgb (11.4-16.0) gm/dL Hct (34.0-46.0) % MCHC (31.0-37.0) g/dL RDW (11.5-15.5) % Plt Count (150-450) k/uL Potassium 3.4 L (3.5-5.1) mmol/L Chloride (98-107) mmol/L POC Glucose (mg/dL) (75-99) mg/dL Calcium (8.4-10.2) mg/dL Microbiology - Last 24 Hours (Table) 07/24/18 15:37 Blood Culture - Preliminary Blood No Growth after 48 hours 07/24/18 20:08 Gram Stain - Final Sputum Sputum Culture - Final Klebsiella pneumoniae Assessment and Plan Plan: Assessment 1 acute sepsis secondary to an extensive right lung pneumonia, most likely of an aspiration pneumonia as the patient has had difficulties with swallowing and previous evaluations. The patient is currently on a combination of Rocephin and vancomycin. The patient was found to have Pneumonia in Her Sputum. She Was Extubated Yesterday. After Being on a Ventimask for the the past 24 hours, the patient was placed back on a BiPAP at a pressure of 12/5 cm of water. NG tube is in place pH is tolerating BiPAP. We'll doing aggressive pulmonary toileting. Deep tracheal suctioning is also being performed. Cough is weak on today's evaluation. 2 acute hypotension secondary to above, recovered and the patient is currently maintaining her on blood pressure which is covered with broad-spectrum antibiotics. 3 acute leukocytosis secondary to above recovered and the white cell count normalized 4 acute lactic acidosis secondary to above 5 hypothermia with altered mentation secondary to above, recovered, with subsequent recurrence in the lower upper trend the patient has been placed on external warming. 6 chronic anemia, stable 7 seizure disorder, will be switched to liquid Depakote 8 developmental delay/Parkinson's disease/dementia/schizoaffective disorder 9 moderate degree of aortic stenosis with moderate pulmonary hypertension based on recent echocardiogram and the patient also has a mitral valve prolapse 10 difficulty with mobility and gait and the patient requires assistance with activities of daily life and 24 7 care 11 hypertension 12 hyperlipidemia 13 hypothyroidism 14 mild thrombocytopenia 15 extensive fecal impaction him a post-enema, post lactulose treatment, post mechanical disimpaction. 16 thrombocytopenia, likely medication induced. Could be consumptive secondary to underlying sepsis. Plan The plan is to monitor this patient's pulmonary status very closely. She is currently on a BiPAP. Aggressive pulmonary toileting. Deep tracheal suctioning if needed. May ultimately need to be intubated if her pulmonary status decompensates. Continue same antibiotic coverage for now. Chest PT. Initiate tube feeds. Monitor the hemodynamics. External warming. The patient is currently off pressors. She is on IV fluids and she is currently receiving D5 0.9 saline at the rate of 100 mL an hour. I'm going to cut down the IV fluids to 40 mL an hour. We'll give the patient dose of Lasix 40 mg IV push. We'll monitor her condition very closely. High risk for reintubation. Long- term prognosis poor baseline above-mentioned comorbidities. Case was discussed with the caregivers. Reticulocyte care evaluation more than 30 minutes.
--- NOTE | 2018-07-27 17:40 | P.PN ---
Subjective Progress Note Date: 07/27/18 This is a 78-year-old female who was recently admitted June 17 through June 29 of which time she was treated for acute hypoxic respiratory failure with bilateral pulmonary infiltrates/aspiration pneumonia, lactic acidosis, hypothermia. Patient has underlying history of developmentally delay and has a public guardian. She was discharged home where she has 24-hour supervision and home care. She was discharged with Augmentin for another 5 days. Yesterday, patient was brought back into [facility] emergency center by EMS for altered mental status that are going on for the past few days with worsening mental status and productive cough with increasing weakness. She was found to have a rectal temperature of 89.9 and became severely hypotensive. In the emergency center, she was intubated, left IJ placed. White count 31, hemoglobin 9.6, platelet count 167, creatinine 0.7. Troponin was negative, TSH 1.6, lactic acid 4. Influenza testing negative. Urinalysis and urine drug screen negative. Chest x-ray shows new development of right-sided multifocal bronchopneumonia. Brain CT showed no definite acute process. 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 Patient is status post multiple units of saline fluid bolus and has been started on norepinephrine. Patient has been started on vancomycin and Zosyn. Repeat chest x-ray this morning reveals patchy infiltrate in the right lung compatible with pneumonia worsening from yesterday. Abdominal x-ray reveals moderate fecal retention correlate for constipation. Dislocation and erosion of the right hip region. Patient also presented with a stage III pressure ulcer to the left heel , stage II rash or ulcer to the buttock and stage II to the upper back. 07/26/2018 the patient is still on the ventilator but tolerating CPAP trial but still poor mentation patient though is slightly arousable partially open his eyes. Follows no commands. Moves right arm spontaneously. 07/27/2017 patient is off the ventilator and is currently on BiPAP. Continues to struggle with her pulmonary status. She is not arousable at this point in time. She however is not on vasopressor therapy. Objective - Vital Signs Vital signs: Vital Signs Temp 96.4 F L 07/27/18 16:00 Pulse 68 07/27/18 17:00 Resp 22 07/27/18 17:00 BP 112/51 07/27/18 17:00 Pulse Ox 98 07/27/18 17:00 Intake & Output 07/26/18 07/27/18 07/27/18 18:59 06:59 18:59 Intake Total 6832.985 7751 1330 Output Total 3249 929 4516 Balance 323.051 840 -997 Weight 66.1 kg 66.1 kg Intake: IV 1300 1775 1330 Dextrose 5%-0.9% NaCl 1, 1100 1300 880 000 ml @ 40 mls/hr IV . Q24H DEANNA Rx#:[id number] Magnesium Sulfate-D5w Pmx 100 100 1 gm In Dextrose/Water 1 100ml.bag @ 100 mls/hr IVPB Q1H DEANNA Rx#: [id number] Piperacillin-Tazobactam 3 25 .375 gm In Sodium Chloride 0.9% 100 ml @ 25 mls/hr IVPB Q8HR DEANNA Rx# :[id number] Vancomycin 750 mg In 125 375 250 Sodium Chloride 0.9% 250 ml @ 125 mls/hr IVPB Q12H DEANNA Rx#:[id number] cefTRIAXone 2 gm In 50 100 Sodium Chloride 0.9% 50 ml @ 100 mls/hr IVPB Q24HR DEANNA Rx#:[id number] Intake, IV Titration 63.051 Amount Propofol 1,000 mg In 63.051 Empty Bag 1 bag @ Titrate IV .Q0M DEANNA Rx#: [id number] Output: Urine 3384 793 1591 Stool 2 Other: Voiding Method Indwelling Catheter Indwelling Catheter Indwelling Catheter - Exam Gen: This is a 78-year-old female. She is in the ICU bed, BiPAP in place HEENT: Head is atraumatic, normocephalic. Pupils equal, round. Sclerae is anicteric. NECK: Supple. No JVD. No lymphadenopathy. No thyromegaly. LUNGS: Decreased on the right side with rhonchi. No intercostal retractions. HEART: Regular rate and rhythm. No murmur. ABDOMEN: Soft. Bowel sounds are present. No tenderness. EXTREMITIES: No pedal edema. No calf tenderness. Dorsalis pedis +2 bilaterally. SKIN: stage III pressure ulcer to the left heel, stage II rash or ulcer to the buttock and stage II to the upper back. NEUROLOGICAL: Patient is with BiPAP in place. Does not open eyes to stimulation no spontaneous movement of extremities. - Labs CBC & Chem 7: 07/27/18 04:20 07/27/18 12:32 Labs: Abnormal Lab Results - Last 24 Hours (Table) 07/27/18 07/27/18 07/27/18 Range/Units 04:20 04:20 11:55 RBC 2.82 L (3.80-5.40) m/uL Hgb 7.8 L (11.4-16.0) gm/dL Hct 26.2 L (34.0-46.0) % MCHC 29.9 L (31.0-37.0) g/dL RDW 19.6 H (11.5-15.5) % Plt Count 56 L (150-450) k/uL Potassium 3.0 L (3.5-5.1) mmol/L Chloride 110 H (98-107) mmol/L POC Glucose (mg/dL) 103 H (75-99) mg/dL Calcium 7.9 L (8.4-10.2) mg/dL 07/27/18 Range/Units 12:32 RBC (3.80-5.40) m/uL Hgb (11.4-16.0) gm/dL Hct (34.0-46.0) % MCHC (31.0-37.0) g/dL RDW (11.5-15.5) % Plt Count (150-450) k/uL Potassium 3.4 L (3.5-5.1) mmol/L Chloride (98-107) mmol/L POC Glucose (mg/dL) (75-99) mg/dL Calcium (8.4-10.2) mg/dL Microbiology - Last 24 Hours (Table) 07/24/18 15:37 Blood Culture - Preliminary Blood No Growth after 48 hours Laboratory Results WBC 6.9 k/uL (3.8-10.6) 07/27/18 04:20 RBC 2.82 m/uL (3.80-5.40) L 07/27/18 04:20 Hgb 7.8 gm/dL (11.4-16.0) L 07/27/18 04:20 Hct 26.2 % (34.0-46.0) L 07/27/18 04:20 MCV 93.0 fL (80.0-100.0) 07/27/18 04:20 MCH 27.8 pg (25.0-35.0) 07/27/18 04:20 MCHC 29.9 g/dL (31.0-37.0) L 07/27/18 04:20 RDW 19.6 % (11.5-15.5) H 07/27/18 04:20 Plt Count 56 k/uL (150-450) L 07/27/18 04:20 Neutrophils % 78 % 07/27/18 04:20 Neutrophils % (Manual) 63 % 07/24/18 15:37 Band Neutrophils % 24 % 07/24/18 15:37 Lymphocytes % 16 % 07/27/18 04:20 Lymphocytes % (Manual) 6 % 07/24/18 15:37 Monocytes % 4 % 07/27/18 04:20 Monocytes % (Manual) 2 % 07/24/18 15:37 Eosinophils % 1 % 07/27/18 04:20 Basophils % 0 % 07/27/18 04:20 Metamyelocytes % 3 % 07/24/18 15:37 Myelocytes % 3 % 07/24/18 15:37 Neutrophils # 5.4 k/uL (1.3-7.7) 07/27/18 04:20 Neutrophils # (Manual) 26.90 k/uL (1.3-7.7) H 07/24/18 15:37 Lymphocytes # 1.1 k/uL (1.0-4.8) 07/27/18 04:20 Lymphocytes # (Manual) 1.86 k/uL (1.0-4.8) 07/24/18 15:37 Monocytes # 0.3 k/uL (0-1.0) 07/27/18 04:20 Monocytes # (Manual) 0.62 k/uL (0-1.0) 07/24/18 15:37 Eosinophils # 0.1 k/uL (0-0.7) 07/27/18 04:20 Basophils # 0.0 k/uL (0-0.2) 07/27/18 04:20 Metamyelocytes # (Man) 0.93 k/uL (0) H 07/24/18 15:37 Myelocytes # (Manual) 0.93 k/uL (0) H 07/24/18 15:37 Nucleated RBCs 0 /100 WBC (0-0) 07/24/18 15:37 Manual Slide Review Performed 07/26/18 04:45 Toxic Granulation Present 07/24/18 15:37 Toxic Vacuolation Present 07/24/18 15:37 Large Platelets Present 07/24/18 15:37 Polychromasia Present 07/24/18 15:37 Hypochromasia Moderate 07/27/18 04:20 Poikilocytosis (manual Present 07/24/18 15:37 Anisocytosis Slight 07/27/18 04:20 Macrocytosis Slight 07/26/18 04:45 PT 10.0 sec (9.0-12.0) 07/24/18 15:37 INR 0.9 (<1.2) 07/24/18 15:37 APTT 26.6 sec (22.0-30.0) 07/24/18 15:37 Sample Site Left Radial 07/26/18 11:53 ABG pH 7.39 (7.35-7.45) 07/26/18 11:53 ABG pCO2 39 mmHg (35-45) 07/26/18 11:53 ABG pO2 57 mmHg (83-108) L* 07/26/18 11:53 ABG HCO3 24 mmol/L (21-25) 07/26/18 11:53 ABG Total CO2 25 mmol/L (19-24) H 07/26/18 11:53 ABG O2 Saturation 89.0 % (94-97) L 07/26/18 11:53 ABG Base Excess -1.3 mmol/L 07/26/18 11:53 Ramez Test Yes 07/26/18 11:53 FiO2 35 % 07/26/18 11:53 Sodium 140 mmol/L (137-145) 07/27/18 04:20 Potassium 3.4 mmol/L (3.5-5.1) L 07/27/18 12:32 Chloride 110 mmol/L (98-107) H 07/27/18 04:20 Carbon Dioxide 27 mmol/L (22-30) 07/27/18 04:20 Anion Gap 3 mmol/L 07/27/18 04:20 BUN 8 mg/dL (7-17) 07/27/18 04:20 Creatinine 0.61 mg/dL (0.52-1.04) 07/27/18 04:20 Est GFR (CKD-EPI)AfAm >90 (>60 ml/min/1.73 sqM) 07/27/18 04:20 Est GFR (CKD-EPI)NonAf 88 (>60 ml/min/1.73 sqM) 07/27/18 04:20 Glucose 82 mg/dL (74-99) 07/27/18 04:20 POC Glucose (mg/dL) 103 mg/dL (75-99) H 07/27/18 11:55 POC Glu Doctor Of Dental Surgery ID [place] Nena Doe 07/27/18 11:55 Lactic Ac Sepsis Rflx Y 07/24/18 16:23 Plasma Lactic Acid Jason 1.2 mmol/L (0.7-2.0) 07/24/18 19:54 Calcium 7.9 mg/dL (8.4-10.2) L 07/27/18 04:20 Phosphorus 3.0 mg/dL (2.5-4.5) 07/27/18 04:20 Magnesium 1.8 mg/dL (1.6-2.3) 07/27/18 04:20 Total Bilirubin 0.5 mg/dL (0.2-1.3) 07/24/18 15:37 AST 62 U/L (14-36) H 07/24/18 15:37 ALT 50 U/L (9-52) 07/24/18 15:37 Alkaline Phosphatase 138 U/L (38-126) H 07/24/18 15:37 Ammonia <9 umol/L (<30) 07/24/18 16:35 Total Creatine Kinase 376 U/L (30-135) H 07/24/18 15:37 CK-MB (CK-2) 9.3 ng/mL (0.0-2.4) H 07/24/18 15:37 CK-MB (CK-2) Rel Index 2.5 07/24/18 15:37 Troponin I <0.012 ng/mL (0.000-0.034) 07/24/18 15:37 Total Protein 5.8 g/dL (6.3-8.2) L 07/24/18 15:37 Albumin 2.8 g/dL (3.5-5.0) L 07/24/18 15:37 Lipase 28 U/L (23-300) 07/24/18 15:37 Procalcitonin 1.37 ng/mL (0.02-0.09) H 07/24/18 15:37 TSH 1.600 mIU/L (0.465-4.680) 07/24/18 15:37 Urine Color Yellow 07/24/18 16:43 Urine Appearance Clear (Clear) 07/24/18 16:43 Urine pH 5.5 (5.0-8.0) 07/24/18 16:43 Ur Specific [place] 1.010 (1.001-1.035) 07/24/18 16:43 Urine Protein Negative (Negative) 07/24/18 16:43 Urine Glucose (UA) Negative (Negative) 07/24/18 16:43 Urine Ketones Negative (Negative) 07/24/18 16:43 Urine Blood Negative (Negative) 07/24/18 16:43 Urine Nitrite Negative (Negative) 07/24/18 16:43 Urine Bilirubin Negative (Negative) 07/24/18 16:43 Urine Urobilinogen <2.0 mg/dL (<2.0) 07/24/18 16:43 Ur Leukocyte Esterase Negative (Negative) 07/24/18 16:43 Vancomycin Trough 16.7 ug/mL 07/26/18 17:10 Urine Opiates Screen Not Detected (NotDetected) 07/24/18 16:43 Ur Oxycodone Screen Not Detected (NotDetected) 07/24/18 16:43 Urine Methadone Screen Not Detected (NotDetected) 07/24/18 16:43 Ur Propoxyphene Screen Not Detected (NotDetected) 07/24/18 16:43 Ur Barbiturates Screen Not Detected (NotDetected) 07/24/18 16:43 U Tricyclic Antidepress Not Detected (NotDetected) 07/24/18 16:43 Ur Phencyclidine Scrn Not Detected (NotDetected) 07/24/18 16:43 Ur Amphetamines Screen Not Detected (NotDetected) 07/24/18 16:43 U Methamphetamines Scrn Not Detected (NotDetected) 07/24/18 16:43 U Benzodiazepines Scrn Not Detected (NotDetected) 07/24/18 16:43 Urine Cocaine Screen Not Detected (NotDetected) 07/24/18 16:43 U Marijuana (THC) Screen Not Detected (NotDetected) 07/24/18 16:43 Influenza Type A RNA Not Detected (Not Detectd) 07/24/18 15:37 Influenza Type B (PCR) Not Detected (Not Detectd) 07/24/18 15:37 Microbiology 07/24/18 15:37 Blood Blood Culture - Preliminary No Growth after 48 hours 07/24/18 20:08 Sputum Gram Stain - Final 07/24/18 20:08 Sputum Sputum Culture - Final Klebsiella pneumoniae 07/24/18 16:43 Urine,Catheterized Urine Culture - Final Assessment and Plan (1) Acute UTI Current Visit: No Status: Acute Code(s): N39.0 - URINARY TRACT INFECTION, SITE NOT SPECIFIED SNOMED Code(s): 985321489 (2) Pneumonia Narrative/Plan: As noted patient is intubated today mechanically ventilated and the low dose of vasopressor at this time. There is concerned it could've been aspiration and consequently treatment for this is penalized with vancomycin and Zosyn given that she is coming from a care facility. The pressure ulcerations are being treated with the optifoam dressings and offloading. Cultures are process. It may further help direct antimicrobial therapy. She is on 35% FiO2 and PEEP of 5 and hopefully will rapidly improved. The significant hypothermia has also resolved with resuscitation and warming. July 26 2018 patient is had some improvement of her pulmonary status is now on a CPAP trial as you tolerating relatively well. However still has somewhat poor mentation. She seems quite comfortable and has some spontaneous movements. Is evidence of the Serratia infection with pneumonia responding well to current antimicrobial therapy of Rocephin. Wounds are being treated with optifoam dressings. She is also on a specialty bed. The case is discussed with her primary caregiver and hopefully she will get an air mattress overlay for her hospital bed at home to help her with her current pressure ulcerations. Antibiotic therapy is altered today from Zosyn to Rocephin and that the susceptibility is available for the Serratia and there is concern dropped her platelets which is likely from Zosyn. 07/27/2018 the patient is extubated but is now on significant support with BiPAP. Concern is that she'll develop further respiratory failure. Unclear if reintubation will be occurring given her significant multiple comorbidities and progressive decline in status. Continue treatment for underlying pneumonia. Platelet count at 56,000 today. The piperacillin tazobactam as been discontinued as well as heparin. Continue to monitor for improvement underlying sepsis Gubin of the driving factor for the thrombocytopenia. Prognosis is poor. Current Visit: No Status: Acute Code(s): J18.9 - PNEUMONIA, UNSPECIFIED ORGANISM SNOMED Code(s): 458624576
[2018-07-27 18:38] LABS: Valproic Acid (Depakene) 25.5 ug/mL
[2018-07-28 00:06] LABS: Glucose,Whole Blood 94 mg/dL (75-99)
[2018-07-28] MEDS: DEXTROSE 5%-0.9% NACL 1,000 ML IV SCH ×3 (04:30→18:27)
[2018-07-28 05:31] LABS: Anisocytosis Slight; Basophils % (A) 0 %; Eosinophils # (A) 0.1 k/uL (0-0.7); Eosinophils % (A) 2 %; HCT 21.7 % (34.0-46.0); Hypochromasia Moderate; Lymphocytes # (A) 1.1 k/uL (1.0-4.8); Lymphocytes % (A) 20 %; MCHC 31.8 g/dL (31.0-37.0); MCV 91.1 fL (80.0-100.0); Mean Platelet Volume 7.9; Monocytes # (A) 0.3 k/uL (0-1.0); Monocytes % (A) 6 %; Neutrophils # (A) 3.8 k/uL (1.3-7.7); Neutrophils % (A) 70 %; RBC 2.38 m/uL (3.80-5.40); RDW 19.6 % (11.5-15.5); WBC 5.4 k/uL (3.8-10.6)
[2018-07-28 05:41] LABS: Anion Gap 2 mmol/L; Blood Urea Nitrogen 7 mg/dL (7-17); Carbon Dioxide 31 mmol/L (22-30); Chloride 104 mmol/L (98-107); Glucose 90 mg/dL (74-99); Magnesium 1.9 mg/dL (1.6-2.3); Phosphorus 3.1 mg/dL (2.5-4.5); Potassium 3.9 mmol/L (3.5-5.1); Sodium 137 mmol/L (137-145)
[2018-07-28 05:43] LABS: HGB 6.9 gm/dL (11.4-16.0); Platelet Count 58 k/uL (150-450)
[2018-07-28] MEDS ORDERED: Potassium Replacement Protocol 1 EACH MISC MISCELLANE PRN ×2 (05:48→18:19)
[2018-07-28] MEDS ORDERED: POTASSIUM BICARBONATE/CIT AC 20 MEQ TABLET.EFF NG-TUBE SCH ×2 (06:00→19:00)
[2018-07-28 06:19] LABS: Glucose,Whole Blood 96 mg/dL (75-99)
[2018-07-28] MEDS: NOREPINEPHRINE 32 MG in SODIUM CHLORIDE 0.9% 218 ML IV SCH (06:22)
[2018-07-28] MEDS: VANCOMYCIN 750 MG in SODIUM CHLORIDE 0.9% 250 ML IVPB SCH ×2 (06:25→17:39)
[2018-07-28] MEDS: MAGNESIUM SULFATE-D5W PMX 1 GM in DEXTROSE/WATER 1 100ML.BAG IVPB SCH ×2 (06:26→09:15)
[2018-07-28] MEDS: LEVOTHYROXINE 125 MCG TAB PO SCH (06:26)
--- NOTE | 2018-07-28 07:58 | XR ---
EXAMINATION TYPE: XR chest 1V portable DATE OF EXAM: 07/28/2018 COMPARISON: 07/27/2018 HISTORY: Shortness of breath TECHNIQUE: Single frontal view of the chest is obtained. FINDINGS: Diffuse bilateral infiltrate and pleural effusion greater on the right. NG tube and centra l line again noted. Slight coiling of the central line near the left lung apex is stable. No pneumoth orax. IMPRESSION: 1. Diffuse bilateral infiltrate and pleural effusion correlate for diffuse pneumonia versus pulmonary edema.
[2018-07-28] MEDS: BUDESONIDE 0.25 MG/2 ML NEBU INHALATION SCH ×2 (08:48→19:41)
[2018-07-28] MEDS: ALBUTEROL NEBULIZED 2.5 MG/3 ML INHALATION SCH ×4 (08:48→19:42)
[2018-07-28] MEDS: ASPIRIN 81 MG PO SCH (09:17)
[2018-07-28] MEDS: ATORVASTATIN 10 MG TAB PO SCH (09:17)
[2018-07-28] MEDS: BENZTROPINE MESYLATE 0.5 MG TAB PO SCH ×2 (09:17→20:36)
[2018-07-28] MEDS: FERROUS SULFATE ORAL ELIXIR 300 MG/5 ML CUP PO SCH ×2 (09:17→20:35)
[2018-07-28] MEDS: FUROSEMIDE 20 MG TAB PO SCH (09:18)
[2018-07-28] MEDS: risperiDONE 1 MG TAB PO SCH ×2 (09:18→20:36)
[2018-07-28] MEDS: PANTOPRAZOLE 40 MG/10 ML VIAL IV SCH (09:18)
[2018-07-28] MEDS: LACTULOSE 20 GM/30 ML CUP PO SCH (09:18)
[2018-07-28] MEDS: VALPROIC ACID ORAL SOLN 250 MG/5 ML CUP NG-TUBE SCH ×2 (09:19→20:35)
--- NOTE | 2018-07-28 11:03 | P.PN ---
Subjective Progress Note Date: 07/28/18 78-year-old female who has been seen Dr. Means lately who was in the hospital not too long ago with sepsis and altered mental status and sepsis seems like she had urinary tract infection from cystitis with positive blood culture for staph infection. Patient had an episode of acute hypoxic respiratory failure was on BiPAP at the time and have acute lactic acidosis with severe hypokalemia and acute kidney injury also had pancytopenia due to sepsis is known to have development delay and history of schizoaffective disorders. Patient left the hospital on June 29. Patient found by the caregiver to have significant alter mental status with decline in mobility and her respond. Not been able to transfer herself patient brought to the emergency department [place] via EMS was seen and evaluated she was hypothermic, hypoxic, having significant shortness of breath mildly elevated troponin and blood pressure declined significantly with significant elevated lactic acid. Patient was intubated and admitted to the intensive care unit afterward for the above problem. 07/25/2018: Patient is more stable hemodynamically, blood pressure is much better controlled, still on vasopressor, still intubated on mechanical ventilation but temperature has improved and her vitals are much better respond to the current dose of IV antibiotic between Vanco and Zosyn. The caregiver was informed that if patient had problem with aspiration and possibility of dysphagia might require PEG tube something will be communicating with the legal guardian for possibility after she is extubated. 07/26: Patient remains intubated and on mechanical ventilation with tidal volume 400, FiO2 35 and PEEP of 5. She has been off levo fed since 745 last evening. She is status post Dulcolax suppository, lactulose and soapsuds enema was given this morning. She has had 3 bowel movements and was disimpacted yesterday. Abdominal x-ray this morning reveals ET tube may need to be pulled back slightly. Patchy infiltrate throughout the right lung persist. Small bilateral pleural effusions and additional left basilar atelectasis and/or consolidation. Suspect background of COPD. Nonobstructive bowel gas pattern. No free air. Continued moderate to large stool burden suggesting constipation. Patient has been seen by Dr. Wei for antibiotic recommendations and patient continues on vancomycin and Zosyn. Multiple decubitus ulcers have been addressed by Dr. Wei. Temperature has improved and is running normal at this point. Heart rate in the 60s and 70s, blood pressure 110/52. White count 9.4, hemoglobin 7.2, platelet count is 63. Dr. Wei's change Zosyn to ceftriaxone. Sputum cultures positive for Klebsiella, pansensitive. Blood culture showing no growth. 07/27: Patient was extubated yesterday afternoon. She remains off vasopressors. She did have a lot of liquid stools last evening. Urine output is at 70 mL per hour. She is currently not on sedation and not responsive. Anticipate that to feedings will be started today as NG tube remains in place. She is currently on Ventimask at FiO2 of 55 pulse oxing 95%. Temperature remains on the lower side at 96.5, heart rates in the 80s and 90s, respirations in the 20s , blood pressure 120/60. White count is normalized, hemoglobin 7.8 and platelet count 78. Potassium is 3.0 and replaced. Repeat chest x-ray shows worsening right upper lobe infiltrate can be compatible with pneumonia. Small bilateral pleural effusions. She is currently on IV antibiotics with ceftriaxone and vancomycin. Caregiver is at the bedside and has been updated. 07/28: Patient was on a Ventimask in the evening where she began to show some fatigue. Patient was transitioned to a BiPAP which she is tolerating at this time. Patient has not had any more stools since yesterday. Urine output is 70 ML's per hour. Patient is arousable to deep pain. Patient does not follow commands withdrawal from pain but does not open eyes. Telemetry shows normal sinus rhythm. WBC 5.4, hemoglobin 6.9, platelets 58, sodium 137, potassium 3.9 , BUN 7 creatinine 0.63, magnesium 1.9. Review of systems: Unable to be obtained as patient is on BiPAP. Objective - Vital Signs Vital signs: Vital Signs Temp 98.0 F 07/28/18 08:00 Pulse 78 07/28/18 10:00 Resp 27 H 07/28/18 10:00 BP 106/68 07/28/18 10:00 Pulse Ox 97 07/28/18 10:00 Intake & Output 07/27/18 07/28/18 07/28/18 18:59 06:59 18:59 Intake Total 1390 1198 565 Output Total 0377 713 110 Balance -1117 617 455 Weight 66.1 kg 65.5 kg Intake: IV 1370 905 425 .9 kvo 200 40 Dextrose 5%-0.9% NaCl 1, 920 480 160 000 ml @ 40 mls/hr IV . Q24H DEANNA Rx#:[id number] Magnesium Sulfate-D5w Pmx 100 100 100 1 gm In Dextrose/Water 1 100ml.bag @ 100 mls/hr IVPB Q1H DEANNA Rx#: [id number] Vancomycin 750 mg In 250 125 125 Sodium Chloride 0.9% 250 ml @ 125 mls/hr IVPB Q12H DEANNA Rx#:[id number] cefTRIAXone 2 gm In 100 Sodium Chloride 0.9% 50 ml @ 100 mls/hr IVPB Q24HR DEANNA Rx#:[id number] Tube Feeding 20 230 110 Other 63 30 Output: Urine 2505 713 110 Stool 2 Other: Voiding Method Indwelling Catheter Indwelling Catheter Indwelling Catheter - Exam General Appearance: Patient is unresponsive to verbal responsive to deep painful stimuli, caregiver at bedside Neck HEENT: Supple, no lymphadenopathy, no thyroid enlargement, no carotid bruits. Lungs: Decreased breaths in bilaterally specially the right side with fine rhonchi positive crackles and wheezes bilaterally. Chest Wall: Decreased expansion with deep inspiration no soreness no rash no deformity. Heart: Regular rate and rhythm, S1, S2 normal, no murmur, rub or gallop. Positive tachycardia Back: Symmetric, no curvature, ROM normal, no CVA tenderness. Abdomen: Soft, non-tender, bowel sounds active all four quadrants, no masses, no organomegaly. Fecal bulk seems to be resolved. Extremities: Extremities normal, atraumatic, no cyanosis or edema. Pulses: 2+ and symmetric. Skin: Skin color, texture, tugor normal, no rashes or lesions. Neurologic: No response to verbal or painful stimuli. - Labs CBC & Chem 7: 07/28/18 04:44 07/28/18 04:44 Labs: Abnormal Lab Results - Last 24 Hours (Table) 07/27/18 07/27/18 07/28/18 Range/Units 11:55 12:32 04:44 RBC 2.38 L (3.80-5.40) m/uL Hgb 6.9 L* (11.4-16.0) gm/dL Hct 21.7 L (34.0-46.0) % RDW 19.6 H (11.5-15.5) % Plt Count 58 L (150-450) k/uL Potassium 3.4 L (3.5-5.1) mmol/L Carbon Dioxide (22-30) mmol/L POC Glucose (mg/dL) 103 H (75-99) mg/dL Calcium (8.4-10.2) mg/dL 07/28/18 Range/Units 04:44 RBC (3.80-5.40) m/uL Hgb (11.4-16.0) gm/dL Hct (34.0-46.0) % RDW (11.5-15.5) % Plt Count (150-450) k/uL Potassium (3.5-5.1) mmol/L Carbon Dioxide 31 H (22-30) mmol/L POC Glucose (mg/dL) (75-99) mg/dL Calcium 8.0 L (8.4-10.2) mg/dL Microbiology - Last 24 Hours (Table) 07/24/18 15:37 Blood Culture - Preliminary Blood No Growth after 72 hours Assessment and Plan Plan: 1 acute hypoxic respiratory failure secondary to aspiration pneumonia with severe sepsis, septic shock. Patient has been extubated. Consult with Dr. Vijaya ambrosio. 2 sepsis with septic shock from Klebsiella aspiration pneumonia, UTI and recent sepsis with staph infection previously. Antibiotics changed to ceftriaxone and vancomycin. 3 severe right-sided pneumonia: Possibly gram-negative versus aspiration, patient was started on vancomycin and rocephin. 4 dysphagia: Speech therapy to evaluate on Monday and if needed might need PEG tube. 5 severe lactic acidosis: Continue sepsis protocol repeat lactic acid and CBC. 6 hypothyroidism: Switch patient to IV thyroid medication have to does normally till she is able to take her oral intake. 7 hyperlipidemia: We'll hold her atorvastatin for now. 8 schizoaffective disorders has been on Risperdal, Cogentin and Depakote. 9 COPD: Patient has been on Pulmicort and Ventolin. 10 iron deficiency anemia. 11 DVT prophylaxis: Will continue patient on heparin subcutaneous. 12 GI prophylaxis: Patient will be on pantoprazole IV. 13. Fecal impaction contributing to aspiration. 14. Thrombocytopenia possibly related to Zosyn or from sepsis. Zosyn changed to ceftriaxone 15. Metabolic encephalopathy, possible anoxic encephalopathy. Discharge plan: To be determined Impression and plan of care have been directed as dictated by the signing physician. Brunilda Hernandez nurse practitioner acting as scribe for signing physician
[2018-07-28] MEDS: FUROSEMIDE 10 MG/ML 4 ML VIAL IV SCH ×2 (12:41→20:35)
[2018-07-28 13:29] LABS: Glucose,Whole Blood 101 mg/dL (75-99)
--- NOTE | 2018-07-28 15:07 | P.PN ---
Subjective Progress Note Date: 07/28/18 This 78-year-old female patient was coming into the hospital because of altered mental status and respiratory failure. The patient was found to be by the caregivers to have difficulties with generalized weakness in her mentation seems to be altered specially over the past 24-48 hours prior to coming to the hospital. She had also difficulties and mobility and she was heart to respond. At that point the caregiver decided to bring this patient back to the hospital for further evaluation. The patient is known to me. I took care of her back in November 2018 for complications of acute hypoxic respiratory failure and acute bilateral aspiration pneumonia. Back then the patient was she is appropriate and the patient recovered and the patient was discharged home. Note that the patient at that time also had a UTI secondary to staphylococcal infection. Patient was brought to the ED for the above-mentioned reasons. Apparently there was a history of productive cough. The patient was found initially to be severely hypothermic. An ultrasound of the heart was done and it showed reduced LV filling pressures secondary to intravascular volume depletion/dehydration. There were 3 evaluation was done and the patient was found to have leukocytosis with a white cell count of 31. Her lactic acid level was at 4.0. Influenza screen was negative. Urinalysis was unremarkable. Chest x-ray showed extensive right lung pulmonary for treated consistent with an underlying pneumonia. The patient was intubated and placed on mechanical ventilator. The troponin catheter was inserted and following that the patient was sent to the ICU. An x-ray of the abdomen was also done that showed extensive moderate to severe fecal impaction within the large bowel. According to the caregiver, the patient was complaining of some abdominal distention big abdominal pain. Currently, the patient is in intensive care unit. The patient is sedated with Diprivan and she is calm and comfortable. She is on a mechanical ventilator and the patient is an assist-control mode rate of 12, tidal volume of 400 with FiO2 of 35% and a PEEP of 5. She is on pressors and she is running on levo fed at 0.03 mics per KG per minute. She is also on propofol running at 5 g per KG per minute. On today's evaluation of 07/26/2018 I'm seeing this patient for a follow-up. The patient was intubated for an extensive right lung pneumonia. The patient remains intubated on a mechanical ventilator. This morning the patient was an FiO2 of 35% with a PEEP of 5 and tidal volume of 400 with rate of 12. Follow- up chest x-ray showed improvement in the right lung pulmonary infiltrate. He was admitted location. The patient was taken off sedation. The patient a decent cough. No symptoms and orotracheal secretions. Based on that, we will give the patient is point is breathing trial with a pressure support of 5 and a PEEP of 5. After 1 hour of spontaneous breathing trial, the patient had a blood. That showed a pH of 7.39 with a pCO2 of 39 and pO2 of 57. Based on that , I extubated this patient to a Ventimask. The patient is doing well. Noted orogastric tube was removed and the patient was given a NG tube. She was having extensive amount of fecal impaction. She underwent manual disimpaction. The patient was also given lactulose to facilitate bowel activity. The follow -up chest x-ray from today still showing fecal stasis impaction still present. The patient has not been fed yet. The abdomen is nondistended. The patient is afebrile. White cell count is at 9.5. The antibiotic coverage includes a combination of Rocephin and vancomycin as the patient was found to have Klebsiella pneumonia in the sputum. He also noted a drop in the platelet counts for that reason the Zosyn was discontinued. I also took an opportunity to discontinue the subcu heparin considering related thrombocytopenia. The patient is currently wearing SCDs. She is awake. She is following some simple commands to the caregivers. On today's evaluation of 07/27/2018, I'm seeing this patient for a follow-up. As mentioned, the patient was extubated yesterday and she was on a Ventimask 40 % throughout the night. This morning she was still on 40% Ventimask. She had a congested cough. Rest or secretions were mainly in the upper airway and the lower lungs were essentially more clear. Based on that, we attempted the tracheal suctioning. Subsequently the patient became more short of breath and she had to be placed on BiPAP at a pressure of 12/5 centimeters of water with an FiO2 of 100%. The patient is looking better while on the BiPAP. She started an NG tube in place. She had had a bowel movement that the patient is being given laxatives. She'll feeds will be started today at a very low rate. No fever. No chills. The chest x-ray from today shows some worsening of the right upper lobe pulmonary infiltrate compatible with pneumonia. There are small better pleural effusion. NG tube is in a good location. The patient remains on a combination of IV Rocephin 2 g every 24 hours and IV vancomycin. Antibiotics have been modified as the patient was found to have Klebsiella pneumoniae in the sputum. She is lethargic. At times she arouses yet she is not fully interactive at this point in time. Platelet counts are remaining low. No other events otherwise for now. Yet again, the patient was found to be hypothermic and the patient was given external warming. Temperature dropped as low as 96.5. On today's evaluation of 07/28/2018, the patient is still not responsive. She responds only to deep painful stimulation. I took her off the BiPAP. The patient had some upper airway secretion. Deep tracheal suctioning was done and mucus was aspirated. The patient has a weak cough. Were able to restore patency of her upper airway. Currently she is a 40% Ventimask pH is starting her tube feeds. She is on a combination of IV Rocephin and vancomycin To the patient had aspirated and the patient developed Pneumonia in Her Sputum. She Is Receiving Enteral Feeding for Nutritional Support and She Is on Goal for Now. Note That This Morning She Was on a BiPAP Pressure of 12/5 Cm of Water and She Was Taken off the BiPAP. She Is Producing Stools. She Is Starting the Enteral Feeding. She Is Not Developing Any Abdominal Distention. Hemoglobin from today is 6.9 and the patient will be receiving a unit of packed RBC. No pressors. She was given a dose of Lasix yesterday. She is a negative fluid balance. We'll continue IV Lasix for another 24 hours. Chest x-ray from today shows stable about pulmonary infiltrates more so on the right and the patient is stable bilateral pleural effusions. Unfortunately, she is extremely lethargic and weak and she does have underlying developmental delay which is obviously affecting our ability at provide this patient if all and fast recovery. Objective - Vital Signs Vital signs: Vital Signs Temp 97.7 F 07/28/18 14:48 Pulse 85 07/28/18 14:48 Resp 13 07/28/18 14:48 BP 119/77 07/28/18 14:48 Pulse Ox 95 07/28/18 14:48 Intake & Output 07/27/18 07/28/18 07/28/18 18:59 06:59 18:59 Intake Total 1390 1198 935 Output Total 2507 713 1135 Balance -1117 485 -200 Weight 66.1 kg 65.5 kg Intake: IV 1370 905 585 .9 kvo 200 80 Dextrose 5%-0.9% NaCl 1, 920 480 230 000 ml @ 10 mls/hr IV . Q24H DEANNA Rx#:[id number] Magnesium Sulfate-D5w Pmx 100 100 100 1 gm In Dextrose/Water 1 100ml.bag @ 100 mls/hr IVPB Q1H DEANNA Rx#: [id number] Vancomycin 750 mg In 250 125 125 Sodium Chloride 0.9% 250 ml @ 125 mls/hr IVPB Q12H DEANNA Rx#:[id number] cefTRIAXone 2 gm In 100 50 Sodium Chloride 0.9% 50 ml @ 100 mls/hr IVPB Q24HR DEANNA Rx#:[id number] Tube Feeding 20 230 290 Blood Product 0 Rc As-1 Unit 0 [id number] Other 63 60 Output: Urine 2505 713 1135 Stool 2 Other: Voiding Method Indwelling Catheter Indwelling Catheter Indwelling Catheter - Exam Patient is calm comfortable, her mental status fluctuates. She is currently in a 40% Ventimask. She responds only to deep painful stimulation. Is not unusual for her were the patient has stayed unresponsive for quite some time and she would shows some degree of alertness at a later stage. She has underlying developmental delay. She responds to deep painful stimulation. She was taken off the BiPAP mask this morning. Head exam was generally normal. There was no scleral icterus or corneal arcus. Mucous membranes were moist. Neck was supple and without jugular venous distension, thyromegaly, or carotid bruits. Carotids were easily palpable bilaterally. There was no adenopathy. Lungs sounds reveal some rhonchi on the right compared to left. Few scattered expiratory wheezes. Otherwise breath sounds are equal and symmetrical bilaterally. Cardiac exam revealed the PMI to be normally situated and sized. The rhythm was regular and no extrasystoles were noted during several minutes of auscultation. The first and second heart sounds were normal and physiologic splitting of the second heart sound was noted. There were murmurs, no rubs, clicks, or gallops. The patient had a systolic ejection murmur consistent with her underlying aortic stenosis. This is grade 3/6. Abdominal exam revealed normal bowel sounds. The abdomen was soft, non-tender, and without masses, organomegaly, or appreciable enlargement of the abdominal aorta. Bowel sounds are hypoactive and abdomen is slightly distended Examination of the extremities revealed easily palpable radial, femoral and pedal pulses. There was no cyanosis, clubbing or edema. Examination of the skin revealed no evidence of significant rashes, suspicious appearing nevi or other concerning lesions. Neurologically very much lethargic and obtunded and she is not following simple commands. Not fully interactive. No focal neurological deficit at this point in time. - Labs CBC & Chem 7: 07/28/18 04:44 07/28/18 04:44 Labs: Abnormal Lab Results - Last 24 Hours (Table) 07/28/18 07/28/18 07/28/18 Range/Units 04:44 04:44 12:14 RBC 2.38 L (3.80-5.40) m/uL Hgb 6.9 L* (11.4-16.0) gm/dL Hct 21.7 L (34.0-46.0) % RDW 19.6 H (11.5-15.5) % Plt Count 58 L (150-450) k/uL Carbon Dioxide 31 H (22-30) mmol/L POC Glucose (mg/dL) (75-99) mg/dL Calcium 8.0 L (8.4-10.2) mg/dL Crossmatch See Detail 07/28/18 Range/Units 13:26 RBC (3.80-5.40) m/uL Hgb (11.4-16.0) gm/dL Hct (34.0-46.0) % RDW (11.5-15.5) % Plt Count (150-450) k/uL Carbon Dioxide (22-30) mmol/L POC Glucose (mg/dL) 101 H (75-99) mg/dL Calcium (8.4-10.2) mg/dL Crossmatch Microbiology - Last 24 Hours (Table) 07/24/18 15:37 Blood Culture - Preliminary Blood No Growth after 72 hours Assessment and Plan Plan: Assessment 1 acute sepsis secondary to an extensive right lung pneumonia, addition to a lateral pleural effusions. The patient was initially intubated. Subsequently she was extubated Ventimask. She required BiPAP on and off as the patient developed upper airway secretions and this morning the patient required deep tracheal suctioning as her cough and mechanism was weak. Subsequently the BiPAP was taken off and the patient was placed on a 40% Ventimask a chest x-ray findings are stable with stable about the port infiltrates right more than left addition to [place] pleural effusions. 2 acute hypotension secondary to above, recovered and the patient is currently maintaining her on blood pressure which is covered with broad-spectrum antibiotics. 3 acute leukocytosis secondary to above recovered and the white cell count normalized 4 acute lactic acidosis secondary to above 5 hypothermia with altered mentation secondary to above, recovered, with subsequent recurrence in the lower upper trend the patient has been placed on external warming. 6 chronic anemia, the hemoglobin dropped down to 6.9 and the patient will receive a unit of packed RBC. No evidence of any acute bleeding. 7 seizure disorder, will be switched to liquid Depakote 8 developmental delay/Parkinson's disease/dementia/schizoaffective disorder 9 moderate degree of aortic stenosis with moderate pulmonary hypertension based on recent echocardiogram and the patient also has a mitral valve prolapse 10 difficulty with mobility and gait and the patient requires assistance with activities of daily life and 24 7 care 11 hypertension 12 hyperlipidemia 13 hypothyroidism 14 mild thrombocytopenia 15 extensive fecal impaction him a post-enema, post lactulose treatment, post mechanical disimpaction. The patient is receiving laxatives and the patient was started on enteral feeding for nutritional support 16 thrombocytopenia, likely medication induced. Could be consumptive secondary to underlying sepsis. The patient's platelet count is stable at 58,000 Plan We are dealing with a very debilitated 78-year-old female patient was underlying developmental delay, dementia and schizoaffective disorder addition to some parkinsonian features. The patient has recurrent aspirations. Ideally , the best option for this patient to be considered for hospice care. She has a legal guardian. She also has several correction visiting nurses or taking care of this patient who shown no interest and considering palliative or hospice care. Based on this, we have provided aggressive treatment for this patient including intubation mechanical ventilation and all modes of ICU care..com is obviously poor. We'll try to optimize her lung infection for now. I would suggest aggressive pulmonary toileting. Continue enteral feeding for nutritional support. We'll use BiPAP on and off during the day to support her breathing. Deep tracheal suctioning. Monitor mental status.. The patient has a packed RBC. She'll be kept on the same antibiotic coverage. The treatment is essentially supportive with probably bad outcome as anticipated. We'll continue to follow. There is a critically care evaluation that was done and more than 30 minutes including discussions that were done with the nursing caregivers who are all at the bedside.
[2018-07-28 18:39] LABS: Glucose,Whole Blood 100 mg/dL (75-99)
[2018-07-28 23:48] LABS: Glucose,Whole Blood 97 mg/dL (75-99)
[2018-07-29] MEDS: NOREPINEPHRINE 32 MG in SODIUM CHLORIDE 0.9% 218 ML IV SCH (04:03)
[2018-07-29] MEDS: DEXTROSE 5%-0.9% NACL 1,000 ML IV SCH ×2 (04:30→20:21)
[2018-07-29 04:45] LABS: Anisocytosis Slight; Basophils % (A) 0 %; Eosinophils # (A) 0.2 k/uL (0-0.7); Eosinophils % (A) 3 %; Hypochromasia Slight; Lymphocytes # (A) 1.1 k/uL (1.0-4.8); Lymphocytes % (A) 19 %; MCH 28.5 pg (25.0-35.0); MCHC 32.4 g/dL (31.0-37.0); MCV 88.2 fL (80.0-100.0); Mean Platelet Volume 8.1; Monocytes # (A) 0.4 k/uL (0-1.0); Monocytes % (A) 7 %; Neutrophils # (A) 4.1 k/uL (1.3-7.7); Neutrophils % (A) 69 %; RDW 18.8 % (11.5-15.5); WBC 5.9 k/uL (3.8-10.6)
[2018-07-29 04:49] LABS: HGB 9.7 gm/dL (11.4-16.0); Platelet Count 82 k/uL (150-450)
[2018-07-29] MEDS ORDERED: VANCOMYCIN TROUGH DUE 1 EACH MISC MISCELLANE ONE (05:00)
[2018-07-29 05:01] LABS: Anion Gap 4 mmol/L; Blood Urea Nitrogen 13 mg/dL (7-17); Calcium 8.1 mg/dL (8.4-10.2); Carbon Dioxide 36 mmol/L (22-30); Chloride 97 mmol/L (98-107); Glucose 109 mg/dL (74-99); Magnesium 1.9 mg/dL (1.6-2.3); Phosphorus 4.1 mg/dL (2.5-4.5); Potassium 3.9 mmol/L (3.5-5.1); Sodium 137 mmol/L (137-145)
[2018-07-29] MEDS ORDERED: POTASSIUM BICARBONATE/CIT AC 20 MEQ TABLET.EFF NG-TUBE SCH ×2 (06:00→16:00)
[2018-07-29 06:02] LABS: Glucose,Whole Blood 109 mg/dL (75-99)
[2018-07-29] MEDS: LEVOTHYROXINE 125 MCG TAB PO SCH (06:16)
[2018-07-29] MEDS: MAGNESIUM SULFATE-D5W PMX 1 GM in DEXTROSE/WATER 1 100ML.BAG IVPB SCH ×2 (06:16→08:31)
[2018-07-29] MEDS: VANCOMYCIN 750 MG in SODIUM CHLORIDE 0.9% 250 ML IVPB SCH (06:16)
--- NOTE | 2018-07-29 07:14 | XR ---
EXAMINATION TYPE: XR chest 1V portable DATE OF EXAM: 07/29/2018 COMPARISON: 07/28/2018 INDICATION: Line placement TECHNIQUE: Single frontal view of the chest is obtained. FINDINGS: The heart size is mild in size. The pulmonary vasculature is indistinct. There is opacification within the right midlung. Right upper lobe infiltrate appears stable increase in right lower lobe infiltrate is present. Small right pleural effusion may be developing. Small left pleural effusion is present. Nasogastric tube transverses the thorax. Left central venous catheter has the tip within the proximal right atrium, unchanged in position. IMPRESSION: 1. Worsening right midlung infiltrate. Some mild increased at the right base. Left base appears stabl e. Small bilateral pleural effusions are likely present. 2. Lines and catheters stable in position.
[2018-07-29] MEDS: BUDESONIDE 0.25 MG/2 ML NEBU INHALATION SCH ×2 (08:15→19:48)
[2018-07-29] MEDS: ALBUTEROL NEBULIZED 2.5 MG/3 ML INHALATION SCH ×4 (08:15→19:48)
[2018-07-29] MEDS: BENZTROPINE MESYLATE 0.5 MG TAB PO SCH ×2 (08:30→21:16)
[2018-07-29] MEDS: ATORVASTATIN 10 MG TAB PO SCH (08:30)
[2018-07-29] MEDS: ASPIRIN 81 MG PO SCH (08:31)
[2018-07-29] MEDS: FERROUS SULFATE ORAL ELIXIR 300 MG/5 ML CUP PO SCH ×2 (08:33→20:22)
[2018-07-29] MEDS: FUROSEMIDE 10 MG/ML 4 ML VIAL IV SCH ×2 (08:34→20:22)
[2018-07-29] MEDS: VALPROIC ACID ORAL SOLN 250 MG/5 ML CUP NG-TUBE SCH ×2 (08:34→20:22)
[2018-07-29] MEDS: LACTULOSE 20 GM/30 ML CUP PO SCH (08:34)
[2018-07-29] MEDS: PANTOPRAZOLE 40 MG/10 ML VIAL IV SCH (10:03)
[2018-07-29] MEDS: risperiDONE 1 MG TAB PO SCH ×2 (10:04→20:22)
--- NOTE | 2018-07-29 10:57 | P.PN ---
Subjective Progress Note Date: 07/29/18 78-year-old female who has been seen Dr. Means lately who was in the hospital not too long ago with sepsis and altered mental status and sepsis seems like she had urinary tract infection from cystitis with positive blood culture for staph infection. Patient had an episode of acute hypoxic respiratory failure was on BiPAP at the time and have acute lactic acidosis with severe hypokalemia and acute kidney injury also had pancytopenia due to sepsis is known to have development delay and history of schizoaffective disorders. Patient left the hospital on June 29. Patient found by the caregiver to have significant alter mental status with decline in mobility and her respond. Not been able to transfer herself patient brought to the emergency department [place] via EMS was seen and evaluated she was hypothermic, hypoxic, having significant shortness of breath mildly elevated troponin and blood pressure declined significantly with significant elevated lactic acid. Patient was intubated and admitted to the intensive care unit afterward for the above problem. 07/25/2018: Patient is more stable hemodynamically, blood pressure is much better controlled, still on vasopressor, still intubated on mechanical ventilation but temperature has improved and her vitals are much better respond to the current dose of IV antibiotic between Vanco and Zosyn. The caregiver was informed that if patient had problem with aspiration and possibility of dysphagia might require PEG tube something will be communicating with the legal guardian for possibility after she is extubated. 07/26: Patient remains intubated and on mechanical ventilation with tidal volume 400, FiO2 35 and PEEP of 5. She has been off levo fed since 745 last evening. She is status post Dulcolax suppository, lactulose and soapsuds enema was given this morning. She has had 3 bowel movements and was disimpacted yesterday. Abdominal x-ray this morning reveals ET tube may need to be pulled back slightly. Patchy infiltrate throughout the right lung persist. Small bilateral pleural effusions and additional left basilar atelectasis and/or consolidation. Suspect background of COPD. Nonobstructive bowel gas pattern. No free air. Continued moderate to large stool burden suggesting constipation. Patient has been seen by Dr. Wei for antibiotic recommendations and patient continues on vancomycin and Zosyn. Multiple decubitus ulcers have been addressed by Dr. Wei. Temperature has improved and is running normal at this point. Heart rate in the 60s and 70s, blood pressure 110/52. White count 9.4, hemoglobin 7.2, platelet count is 63. Dr. Wei's change Zosyn to ceftriaxone. Sputum cultures positive for Klebsiella, pansensitive. Blood culture showing no growth. 07/27: Patient was extubated yesterday afternoon. She remains off vasopressors. She did have a lot of liquid stools last evening. Urine output is at 70 mL per hour. She is currently not on sedation and not responsive. Anticipate that to feedings will be started today as NG tube remains in place. She is currently on Ventimask at FiO2 of 55 pulse oxing 95%. Temperature remains on the lower side at 96.5, heart rates in the 80s and 90s, respirations in the 20s , blood pressure 120/60. White count is normalized, hemoglobin 7.8 and platelet count 78. Potassium is 3.0 and replaced. Repeat chest x-ray shows worsening right upper lobe infiltrate can be compatible with pneumonia. Small bilateral pleural effusions. She is currently on IV antibiotics with ceftriaxone and vancomycin. Caregiver is at the bedside and has been updated. 07/28: Patient was on a Ventimask in the evening where she began to show some fatigue. Patient was transitioned to a BiPAP which she is tolerating at this time. Patient has not had any more stools since yesterday. Urine output is 70 ML's per hour. Patient is arousable to deep pain. Patient does not follow commands withdrawal from pain but does not open eyes. Telemetry shows normal sinus rhythm. WBC 5.4, hemoglobin 6.9, platelets 58, sodium 137, potassium 3.9 , BUN 7 creatinine 0.63, magnesium 1.9. 07/29: Patient is currently on a Ventimask. Family and caregiver state that the patient has been more alert and able to open eyes with verbal stimuli and attempting to converse. Upon examination patient is unresponsive to verbal stimuli not opening eyes to painful stimuli. Patient remained afebrile. She is tolerating feedings with no residual. Telemetry shows normal sinus rhythm. Urine and blood cultures are negative. Sputum is showing Klebsiella pneumoniae. Review of systems: Unable to be obtained as patient is unresponsive. Objective - Vital Signs Vital signs: Vital Signs Temp 97.5 F L 07/29/18 08:00 Pulse 81 02/24/19 10:00 Resp 21 07/29/18 10:00 BP 135/98 07/29/18 10:00 Pulse Ox 92 L 07/29/18 10:00 Intake & Output 07/28/18 07/29/18 07/29/18 18:59 06:59 18:59 Intake Total 1555 1140 535 Output Total 2340 2615 1150 Balance -785 -1475 -615 Weight 60.2 kg Intake: IV 665 350 335 .9 kvo 120 230 20 Dextrose 5%-0.9% NaCl 1, 270 120 40 000 ml @ 10 mls/hr IV . Q24H DEANNA Rx#:[id number] Magnesium Sulfate-D5w Pmx 100 100 1 gm In Dextrose/Water 1 100ml.bag @ 100 mls/hr IVPB Q1H DEANNA Rx#: [id number] Vancomycin 750 mg In 125 125 Sodium Chloride 0.9% 250 ml @ 125 mls/hr IVPB Q12H DEANNA Rx#:[id number] cefTRIAXone 2 gm In 50 50 Sodium Chloride 0.9% 50 ml @ 100 mls/hr IVPB Q24HR DEANNA Rx#:[id number] Intake, IV Titration 100 Amount Magnesium Sulfate-D5w Pmx 100 1 gm In Dextrose/Water 1 100ml.bag @ 100 mls/hr IVPB Q1H DEANNA Rx#: [id number] Tube Feeding 490 700 100 Blood Product 310 Rc As-1 Unit 310 [id number] Other 90 90 Output: Urine 2340 2615 1150 Other: Voiding Method Indwelling Catheter Indwelling Catheter - Exam General Appearance: Patient is unresponsive to verbal responsive to deep painful stimuli, caregiver at bedside Neck HEENT: Supple, no lymphadenopathy, no thyroid enlargement, no carotid bruits. Lungs: Decreased breaths in bilaterally specially the right side with fine rhonchi positive crackles and wheezes bilaterally. Chest Wall: Decreased expansion with deep inspiration no soreness no rash no deformity. Heart: Regular rate and rhythm, S1, S2 normal, no murmur, rub or gallop. Positive tachycardia Back: Symmetric, no curvature, ROM normal, no CVA tenderness. Abdomen: Soft, non-tender, bowel sounds active all four quadrants, no masses, no organomegaly. Fecal bulk seems to be resolved. Extremities: Extremities normal, atraumatic, no cyanosis or edema. Pulses: 2+ and symmetric. Skin: Skin color, texture, tugor normal, no rashes or lesions. Neurologic: No response to verbal or painful stimuli. - Labs CBC & Chem 7: 07/29/18 04:32 07/29/18 04:32 Labs: Abnormal Lab Results - Last 24 Hours (Table) 07/28/18 07/28/18 07/28/18 Range/Units 12:14 13:26 18:38 RBC (3.80-5.40) m/uL Hgb (11.4-16.0) gm/dL Hct (34.0-46.0) % RDW (11.5-15.5) % Plt Count (150-450) k/uL Chloride (98-107) mmol/L Carbon Dioxide (22-30) mmol/L Glucose (74-99) mg/dL POC Glucose (mg/dL) 101 H 100 H (75-99) mg/dL Calcium (8.4-10.2) mg/dL Crossmatch See Detail 07/29/18 07/29/18 07/29/18 Range/Units 04:32 04:32 06:00 RBC 3.40 L (3.80-5.40) m/uL Hgb 9.7 L D (11.4-16.0) gm/dL Hct 30.0 L (34.0-46.0) % RDW 18.8 H (11.5-15.5) % Plt Count 82 L (150-450) k/uL Chloride 97 L (98-107) mmol/L Carbon Dioxide 36 H (22-30) mmol/L Glucose 109 H (74-99) mg/dL POC Glucose (mg/dL) 109 H (75-99) mg/dL Calcium 8.1 L (8.4-10.2) mg/dL Crossmatch Microbiology - Last 24 Hours (Table) 07/24/18 15:37 Blood Culture - Preliminary Blood No Growth after 96 hours Assessment and Plan Plan: 1 acute hypoxic respiratory failure secondary to aspiration pneumonia with severe sepsis, septic shock. Patient has been extubated. Consult with Dr. Vijaya ambrosio. 2 sepsis with septic shock from Klebsiella aspiration pneumonia, UTI and recent sepsis with staph infection previously. Antibiotics changed to ceftriaxone and vancomycin. 3 severe right-sided pneumonia: Possibly gram-negative versus aspiration, patient was started on vancomycin and rocephin. 4 dysphagia: Speech therapy to evaluate on Monday and if needed might need PEG tube. 5 severe lactic acidosis: Continue sepsis protocol repeat lactic acid and CBC. 6 hypothyroidism: Switch patient to IV thyroid medication have to does normally till she is able to take her oral intake. 7 hyperlipidemia: We'll hold her atorvastatin for now. 8 schizoaffective disorders has been on Risperdal, Cogentin and Depakote. 9 COPD: Patient has been on Pulmicort and Ventolin. 10 iron deficiency anemia. 11 DVT prophylaxis: Will continue patient on heparin subcutaneous. 12 GI prophylaxis: Patient will be on pantoprazole IV. 13. Fecal impaction contributing to aspiration. 14. Thrombocytopenia possibly related to Zosyn or from sepsis. Zosyn changed to ceftriaxone 15. Metabolic encephalopathy, possible anoxic encephalopathy. Discharge plan: To be determined Impression and plan of care have been directed as dictated by the signing physician. Brunilda Hernandez nurse practitioner acting as scribe for signing physician
[2018-07-29 12:03] LABS: Glucose,Whole Blood 109 mg/dL (75-99)
--- NOTE | 2018-07-29 13:29 | P.PN ---
Subjective Progress Note Date: 07/29/18 This 78-year-old female patient was coming into the hospital because of altered mental status and respiratory failure. The patient was found to be by the caregivers to have difficulties with generalized weakness in her mentation seems to be altered specially over the past 24-48 hours prior to coming to the hospital. She had also difficulties and mobility and she was heart to respond. At that point the caregiver decided to bring this patient back to the hospital for further evaluation. The patient is known to me. I took care of her back in November 2018 for complications of acute hypoxic respiratory failure and acute bilateral aspiration pneumonia. Back then the patient was she is appropriate and the patient recovered and the patient was discharged home. Note that the patient at that time also had a UTI secondary to staphylococcal infection. Patient was brought to the ED for the above-mentioned reasons. Apparently there was a history of productive cough. The patient was found initially to be severely hypothermic. An ultrasound of the heart was done and it showed reduced LV filling pressures secondary to intravascular volume depletion/dehydration. There were 3 evaluation was done and the patient was found to have leukocytosis with a white cell count of 31. Her lactic acid level was at 4.0. Influenza screen was negative. Urinalysis was unremarkable. Chest x-ray showed extensive right lung pulmonary for treated consistent with an underlying pneumonia. The patient was intubated and placed on mechanical ventilator. The troponin catheter was inserted and following that the patient was sent to the ICU. An x-ray of the abdomen was also done that showed extensive moderate to severe fecal impaction within the large bowel. According to the caregiver, the patient was complaining of some abdominal distention big abdominal pain. Currently, the patient is in intensive care unit. The patient is sedated with Diprivan and she is calm and comfortable. She is on a mechanical ventilator and the patient is an assist-control mode rate of 12, tidal volume of 400 with FiO2 of 35% and a PEEP of 5. She is on pressors and she is running on levo fed at 0.03 mics per KG per minute. She is also on propofol running at 5 g per KG per minute. On today's evaluation of 07/26/2018 I'm seeing this patient for a follow-up. The patient was intubated for an extensive right lung pneumonia. The patient remains intubated on a mechanical ventilator. This morning the patient was an FiO2 of 35% with a PEEP of 5 and tidal volume of 400 with rate of 12. Follow- up chest x-ray showed improvement in the right lung pulmonary infiltrate. He was admitted location. The patient was taken off sedation. The patient a decent cough. No symptoms and orotracheal secretions. Based on that, we will give the patient is point is breathing trial with a pressure support of 5 and a PEEP of 5. After 1 hour of spontaneous breathing trial, the patient had a blood. That showed a pH of 7.39 with a pCO2 of 39 and pO2 of 57. Based on that , I extubated this patient to a Ventimask. The patient is doing well. Noted orogastric tube was removed and the patient was given a NG tube. She was having extensive amount of fecal impaction. She underwent manual disimpaction. The patient was also given lactulose to facilitate bowel activity. The follow -up chest x-ray from today still showing fecal stasis impaction still present. The patient has not been fed yet. The abdomen is nondistended. The patient is afebrile. White cell count is at 9.5. The antibiotic coverage includes a combination of Rocephin and vancomycin as the patient was found to have Klebsiella pneumonia in the sputum. He also noted a drop in the platelet counts for that reason the Zosyn was discontinued. I also took an opportunity to discontinue the subcu heparin considering related thrombocytopenia. The patient is currently wearing SCDs. She is awake. She is following some simple commands to the caregivers. On today's evaluation of 07/27/2018, I'm seeing this patient for a follow-up. As mentioned, the patient was extubated yesterday and she was on a Ventimask 40 % throughout the night. This morning she was still on 40% Ventimask. She had a congested cough. Rest or secretions were mainly in the upper airway and the lower lungs were essentially more clear. Based on that, we attempted the tracheal suctioning. Subsequently the patient became more short of breath and she had to be placed on BiPAP at a pressure of 12/5 centimeters of water with an FiO2 of 100%. The patient is looking better while on the BiPAP. She started an NG tube in place. She had had a bowel movement that the patient is being given laxatives. She'll feeds will be started today at a very low rate. No fever. No chills. The chest x-ray from today shows some worsening of the right upper lobe pulmonary infiltrate compatible with pneumonia. There are small better pleural effusion. NG tube is in a good location. The patient remains on a combination of IV Rocephin 2 g every 24 hours and IV vancomycin. Antibiotics have been modified as the patient was found to have Klebsiella pneumoniae in the sputum. She is lethargic. At times she arouses yet she is not fully interactive at this point in time. Platelet counts are remaining low. No other events otherwise for now. Yet again, the patient was found to be hypothermic and the patient was given external warming. Temperature dropped as low as 96.5. On today's evaluation of 07/28/2018, the patient is still not responsive. She responds only to deep painful stimulation. I took her off the BiPAP. The patient had some upper airway secretion. Deep tracheal suctioning was done and mucus was aspirated. The patient has a weak cough. Were able to restore patency of her upper airway. Currently she is a 40% Ventimask pH is starting her tube feeds. She is on a combination of IV Rocephin and vancomycin To the patient had aspirated and the patient developed Pneumonia in Her Sputum. She Is Receiving Enteral Feeding for Nutritional Support and She Is on Goal for Now. Note That This Morning She Was on a BiPAP Pressure of 12/5 Cm of Water and She Was Taken off the BiPAP. She Is Producing Stools. She Is Starting the Enteral Feeding. She Is Not Developing Any Abdominal Distention. Hemoglobin from today is 6.9 and the patient will be receiving a unit of packed RBC. No pressors. She was given a dose of Lasix yesterday. She is a negative fluid balance. We'll continue IV Lasix for another 24 hours. Chest x-ray from today shows stable about pulmonary infiltrates more so on the right and the patient is stable bilateral pleural effusions. Unfortunately, she is extremely lethargic and weak and she does have underlying developmental delay which is obviously affecting our ability at provide this patient if all and fast recovery. On 07/29/2018On 11 essentially the same and stable. Patient is on a 40% Ventimask. Mentation is not much improved. She'll occasionally reacts to painful stimulation and repeated stimulation verbally. Otherwise she is lethargic and sleeping most of the time. She is tolerating his tube feeds. No signs of any respiratory distress. Chest x-ray findings and essentially stable. The patient has bilateral pleural effusion and extensive consolidation of the right lung and limited consolidation of the left lung. The patient has been negative fluid balance while being on Lasix 40 mg IV push every 12 hours. Antibiotic coverage includes accommodation Rocephin and vancomycin. No agitation. No restlessness. No aspiration. No bowel movement for the past 24 hours and the patient is on lactulose 20 MO's once a day. No abdominal distention. Caregivers at the bedside. I think the prognosis essentially for yet do not think there is any intervention for the the caregivers and the nurses will be taking care of him to make suggestions about her CODE STATUS. I have explained to them on multiple occasions that this may not be a on a favorable outcome. Objective - Vital Signs Vital signs: Vital Signs Temp 97.5 F L 07/29/18 08:00 Pulse 84 07/29/18 12:00 Resp 26 H 07/29/18 12:00 BP 117/53 07/29/18 12:00 Pulse Ox 95 07/29/18 12:00 Intake & Output 07/28/18 07/29/18 07/29/18 18:59 06:59 18:59 Intake Total 1555 1140 595 Output Total 2340 2615 1550 Balance -785 -1475 -955 Weight 60.2 kg Intake: IV 665 350 395 .9 kvo 120 230 60 Dextrose 5%-0.9% NaCl 1, 270 120 60 000 ml @ 10 mls/hr IV . Q24H DEANNA Rx#:[id number] Magnesium Sulfate-D5w Pmx 100 100 1 gm In Dextrose/Water 1 100ml.bag @ 100 mls/hr IVPB Q1H DEANNA Rx#: [id number] Vancomycin 750 mg In 125 125 Sodium Chloride 0.9% 250 ml @ 125 mls/hr IVPB Q12H DEANNA Rx#:[id number] cefTRIAXone 2 gm In 50 50 Sodium Chloride 0.9% 50 ml @ 100 mls/hr IVPB Q24HR DEANNA Rx#:[id number] Intake, IV Titration 100 Amount Magnesium Sulfate-D5w Pmx 100 1 gm In Dextrose/Water 1 100ml.bag @ 100 mls/hr IVPB Q1H DEANNA Rx#: [id number] Tube Feeding 490 700 100 Blood Product 310 Rc As-1 Unit 310 [id number] Other 90 90 Output: Urine 2340 2612 1550 Other: Voiding Method Indwelling Catheter Indwelling Catheter Indwelling Catheter - Exam Patient is calm comfortable, her mental status fluctuates. She is currently in a 40% Ventimask. She responds only to deep painful stimulation. Is not unusual for her were the patient has stayed unresponsive for quite some time and she would shows some degree of alertness at a later stage. She has underlying developmental delay. She responds to deep painful stimulation. She was taken off the BiPAP mask this morning. Head exam was generally normal. There was no scleral icterus or corneal arcus. Mucous membranes were moist. Neck was supple and without jugular venous distension, thyromegaly, or carotid bruits. Carotids were easily palpable bilaterally. There was no adenopathy. Lungs sounds reveal some rhonchi on the right compared to left. Few scattered expiratory wheezes. Otherwise breath sounds are equal and symmetrical bilaterally. Cardiac exam revealed the PMI to be normally situated and sized. The rhythm was regular and no extrasystoles were noted during several minutes of auscultation. The first and second heart sounds were normal and physiologic splitting of the second heart sound was noted. There were murmurs, no rubs, clicks, or gallops. The patient had a systolic ejection murmur consistent with her underlying aortic stenosis. This is grade 3/6. Abdominal exam revealed normal bowel sounds. The abdomen was soft, non-tender, and without masses, organomegaly, or appreciable enlargement of the abdominal aorta. Bowel sounds are hypoactive and abdomen is slightly distended Examination of the extremities revealed easily palpable radial, femoral and pedal pulses. There was no cyanosis, clubbing or edema. Examination of the skin revealed no evidence of significant rashes, suspicious appearing nevi or other concerning lesions. Neurologically very much lethargic and obtunded and she is not following simple commands. Not fully interactive. No focal neurological deficit at this point in time. - Labs CBC & Chem 7: 07/29/18 04:32 07/29/18 12:05 Labs: Abnormal Lab Results - Last 24 Hours (Table) 07/28/18 07/28/18 07/28/18 Range/Units 12:14 13:26 18:38 RBC (3.80-5.40) m/uL Hgb (11.4-16.0) gm/dL Hct (34.0-46.0) % RDW (11.5-15.5) % Plt Count (150-450) k/uL Chloride (98-107) mmol/L Carbon Dioxide (22-30) mmol/L Glucose (74-99) mg/dL POC Glucose (mg/dL) 101 H 100 H (75-99) mg/dL Calcium (8.4-10.2) mg/dL Crossmatch See Detail 07/29/18 07/29/18 07/29/18 Range/Units 04:32 04:32 06:00 RBC 3.40 L (3.80-5.40) m/uL Hgb 9.7 L D (11.4-16.0) gm/dL Hct 30.0 L (34.0-46.0) % RDW 18.8 H (11.5-15.5) % Plt Count 82 L (150-450) k/uL Chloride 97 L (98-107) mmol/L Carbon Dioxide 36 H (22-30) mmol/L Glucose 109 H (74-99) mg/dL POC Glucose (mg/dL) 109 H (75-99) mg/dL Calcium 8.1 L (8.4-10.2) mg/dL Crossmatch 07/29/18 Range/Units 11:59 RBC (3.80-5.40) m/uL Hgb (11.4-16.0) gm/dL Hct (34.0-46.0) % RDW (11.5-15.5) % Plt Count (150-450) k/uL Chloride (98-107) mmol/L Carbon Dioxide (22-30) mmol/L Glucose (74-99) mg/dL POC Glucose (mg/dL) 109 H (75-99) mg/dL Calcium (8.4-10.2) mg/dL Crossmatch Microbiology - Last 24 Hours (Table) 07/24/18 15:37 Blood Culture - Preliminary Blood No Growth after 96 hours Assessment and Plan Plan: Assessment 1 acute sepsis secondary to an extensive right lung pneumonia, addition to a lateral pleural effusions. We have grown capsula pneumoniae from the patient's sputum. The patient was requiring BiPAP and she was subsequently placed on a 40 % Ventimask. Note that earlier during the hospitalization the patient was also intubated and required mechanical ventilation. Chest x-ray findings are essentially stable. There is bilateral pleural effusion. Patient was started on diuretics and the patient is a negative fluid balance. She is tolerating the diuresis well. She is tolerating 40% Ventimask well. Her cough is weak. She is receiving enteral feeding for nutritional support. Chest x-ray findings and essentially stable. Progress is limited for the time being. 2 acute hypotension secondary to above, recovered and the patient is currently maintaining her on blood pressure which is covered with broad-spectrum antibiotics. 3 acute leukocytosis secondary to above recovered and the white cell count normalized, and the white cell count is normalized at 5.9 4 acute lactic acidosis secondary to above 5 hypothermia with altered mentation secondary to above, recovered, with subsequent recurrence in the lower upper trend the patient has been placed on external warming. 6 chronic anemia, the hemoglobin dropped down to 6.9 and the patient will receive a unit of packed RBC. No evidence of any acute bleeding. the subsequent hemoglobin came up to 9.7. 7 seizure disorder, will be switched to liquid Depakote 8 developmental delay/Parkinson's disease/dementia/schizoaffective disorder 9 moderate degree of aortic stenosis with moderate pulmonary hypertension based on recent echocardiogram and the patient also has a mitral valve prolapse 10 difficulty with mobility and gait and the patient requires assistance with activities of daily life and 24 7 care 11 hypertension 12 hyperlipidemia 13 hypothyroidism 14 mild thrombocytopenia my improving 15 extensive fecal impaction him a post-enema, post lactulose treatment, post mechanical disimpaction. The patient is receiving laxatives and the patient was started on enteral feeding for nutritional support 16 thrombocytopenia, likely medication induced. Could be consumptive secondary to underlying sepsis. The patient's platelet count is stable and it's improving up to 82,000 Plan This patient has a poor outcome. She has lost her ability to swallow. She is also having a weak cough. Her mentation is diminished and she is not alert and awake enough to perform adequate pulmonate toileting. I'm very much concerned of her. There is a high risk for that she will fail again requiring intubation mechanical ventilation. For now she is stable. She is on 40% Ventimask pH is tolerating enteral feeding. Her hemoglobin is up to 9.7. No significant leukocytosis. She remains on these antibiotic coverage. She is being diuresis. We'll monitor pressors status. Will monitor mental status. Discussed again with a nursing caregivers. I think her prognosis no matter what is going to be quite poor specially with her comorbidities. We'll continue to follow. I may need to work on changing, post status to a DO NOT INTUBATE, if the caregivers at agreeable. We'll continue to follow.
[2018-07-29 23:34] LABS: Glucose,Whole Blood 108 mg/dL (75-99)
[2018-07-30] MEDS: VANCOMYCIN 750 MG in SODIUM CHLORIDE 0.9% 250 ML IVPB SCH ×2 (00:26→16:44)
[2018-07-30 05:34] LABS: Anisocytosis Slight; Basophils % (A) 1 %; Eosinophils # (A) 0.1 k/uL (0-0.7); Eosinophils % (A) 2 %; HCT 27.5 % (34.0-46.0); HGB 8.9 gm/dL (11.4-16.0); Lymphocytes # (A) 1.1 k/uL (1.0-4.8); Lymphocytes % (A) 20 %; MCH 28.3 pg (25.0-35.0); MCHC 32.2 g/dL (31.0-37.0); MCV 87.8 fL (80.0-100.0); Mean Platelet Volume 7.9; Monocytes # (A) 0.5 k/uL (0-1.0); Monocytes % (A) 8 %; Neutrophils # (A) 3.9 k/uL (1.3-7.7); Neutrophils % (A) 68 %; RBC 3.14 m/uL (3.80-5.40); RDW 18.5 % (11.5-15.5); WBC 5.6 k/uL (3.8-10.6)
[2018-07-30 05:36] LABS: Platelet Count 85 k/uL (150-450)
[2018-07-30 05:40] LABS: Anion Gap 2 mmol/L; Blood Urea Nitrogen 19 mg/dL (7-17); Calcium 8.2 mg/dL (8.4-10.2); Carbon Dioxide 39 mmol/L (22-30); Chloride 96 mmol/L (98-107); Glucose 111 mg/dL (74-99); Potassium 4.3 mmol/L (3.5-5.1); Sodium 137 mmol/L (137-145)
[2018-07-30] MEDS: NOREPINEPHRINE 32 MG in SODIUM CHLORIDE 0.9% 218 ML IV SCH (05:48)
[2018-07-30 05:57] LABS: Glucose,Whole Blood 112 mg/dL (75-99)
[2018-07-30] MEDS: ALBUTEROL NEBULIZED 2.5 MG/3 ML INHALATION SCH ×4 (07:36→20:18)
[2018-07-30] MEDS: LEVOTHYROXINE 125 MCG TAB PO SCH (07:47)
[2018-07-30] MEDS: BUDESONIDE 0.25 MG/2 ML NEBU INHALATION SCH ×2 (08:00→20:19)
--- NOTE | 2018-07-30 08:20 | XR ---
EXAMINATION TYPE: XR chest 1V portable DATE OF EXAM: 07/30/2018 COMPARISON: 07/29/2018 INDICATION: Lung assessment TECHNIQUE: Single frontal view of the chest is obtained. FINDINGS: The heart size is normal. The pulmonary vasculature is normal. There is diffuse increased lung markings greater in the right perihilar region. Small right pleural e ffusion a small left pleural effusion are present. Findings are somewhat improved from comparison. Nasogastric tube transverses the thorax. Left central venous catheter is present with the tip of the proximal right atrium. IMPRESSION: 1. Improving right perihilar infiltrate. 2. Small bilateral pleural effusions. 3. Lines and catheters discussed above.
[2018-07-30] MEDS: DEXTROSE 5%-0.9% NACL 1,000 ML IV SCH ×2 (08:24→11:33)
[2018-07-30] MEDS: ATORVASTATIN 10 MG TAB PO SCH (08:25)
[2018-07-30] MEDS: ASPIRIN 81 MG PO SCH (08:25)
[2018-07-30] MEDS: FERROUS SULFATE ORAL ELIXIR 300 MG/5 ML CUP PO SCH ×2 (08:29→20:33)
[2018-07-30] MEDS: BENZTROPINE MESYLATE 0.5 MG TAB PO SCH ×2 (08:29→20:33)
[2018-07-30] MEDS: PANTOPRAZOLE 40 MG/10 ML VIAL IV SCH (08:30)
[2018-07-30] MEDS: VALPROIC ACID ORAL SOLN 250 MG/5 ML CUP NG-TUBE SCH ×2 (08:30→20:33)
[2018-07-30] MEDS: LACTULOSE 20 GM/30 ML CUP PO SCH (08:30)
[2018-07-30] MEDS: FUROSEMIDE 10 MG/ML 4 ML VIAL IV SCH ×2 (08:30→20:33)
[2018-07-30] MEDS: risperiDONE 1 MG TAB PO SCH ×2 (08:30→20:33)
[2018-07-30 11:47] LABS: Glucose,Whole Blood 117 mg/dL (75-99)
--- NOTE | 2018-07-30 12:00 | XR ---
EXAMINATION TYPE: XR abdomen 1V DATE OF EXAM: 07/30/2018 COMPARISON: 03/24/2019 INDICATION: Fecal impaction TECHNIQUE: Single view abdomen supine view FINDINGS: There is a normal bowel gas pattern. There is within the colon. No significant fecal debris is presen t. Psoas margins are normal. No organomegaly is present. Changes of the right hip are again evident. The pulmonary vasculature is within the left arm of the a bdomen. IMPRESSION: 1. No acute fecal impaction.
--- NOTE | 2018-07-30 14:52 | P.PN ---
Subjective Progress Note Date: 07/30/18 78-year-old female who has been seen Dr. Means lately who was in the hospital not too long ago with sepsis and altered mental status and sepsis seems like she had urinary tract infection from cystitis with positive blood culture for staph infection. Patient had an episode of acute hypoxic respiratory failure was on BiPAP at the time and have acute lactic acidosis with severe hypokalemia and acute kidney injury also had pancytopenia due to sepsis is known to have development delay and history of schizoaffective disorders. Patient left the hospital on June 29. Patient found by the caregiver to have significant alter mental status with decline in mobility and her respond. Not been able to transfer herself patient brought to the emergency department [facility] via EMS was seen and evaluated she was hypothermic, hypoxic, having significant shortness of breath mildly elevated troponin and blood pressure declined significantly with significant elevated lactic acid. Patient was intubated and admitted to the intensive care unit afterward for the above problem. 07/25/2018: Patient is more stable hemodynamically, blood pressure is much better controlled, still on vasopressor, still intubated on mechanical ventilation but temperature has improved and her vitals are much better respond to the current dose of IV antibiotic between Vanco and Zosyn. The caregiver was informed that if patient had problem with aspiration and possibility of dysphagia might require PEG tube something will be communicating with the legal guardian for possibility after she is extubated. 07/26: Patient remains intubated and on mechanical ventilation with tidal volume 400, FiO2 35 and PEEP of 5. She has been off levo fed since 745 last evening. She is status post Dulcolax suppository, lactulose and soapsuds enema was given this morning. She has had 3 bowel movements and was disimpacted yesterday. Abdominal x-ray this morning reveals ET tube may need to be pulled back slightly. Patchy infiltrate throughout the right lung persist. Small bilateral pleural effusions and additional left basilar atelectasis and/or consolidation. Suspect background of COPD. Nonobstructive bowel gas pattern. No free air. Continued moderate to large stool burden suggesting constipation. Patient has been seen by Dr. Wei for antibiotic recommendations and patient continues on vancomycin and Zosyn. Multiple decubitus ulcers have been addressed by Dr. Wei. Temperature has improved and is running normal at this point. Heart rate in the 60s and 70s, blood pressure 110/52. White count 9.4, hemoglobin 7.2, platelet count is 63. Dr. Wei's change Zosyn to ceftriaxone. Sputum cultures positive for Klebsiella, pansensitive. Blood culture showing no growth. 07/27: Patient was extubated yesterday afternoon. She remains off vasopressors. She did have a lot of liquid stools last evening. Urine output is at 70 mL per hour. She is currently not on sedation and not responsive. Anticipate that to feedings will be started today as NG tube remains in place. She is currently on Ventimask at FiO2 of 55 pulse oxing 95%. Temperature remains on the lower side at 96.5, heart rates in the 80s and 90s, respirations in the 20s , blood pressure 120/60. White count is normalized, hemoglobin 7.8 and platelet count 78. Potassium is 3.0 and replaced. Repeat chest x-ray shows worsening right upper lobe infiltrate can be compatible with pneumonia. Small bilateral pleural effusions. She is currently on IV antibiotics with ceftriaxone and vancomycin. Caregiver is at the bedside and has been updated. 07/28: Patient was on a Ventimask in the evening where she began to show some fatigue. Patient was transitioned to a BiPAP which she is tolerating at this time. Patient has not had any more stools since yesterday. Urine output is 70 ML's per hour. Patient is arousable to deep pain. Patient does not follow commands withdrawal from pain but does not open eyes. Telemetry shows normal sinus rhythm. WBC 5.4, hemoglobin 6.9, platelets 58, sodium 137, potassium 3.9 , BUN 7 creatinine 0.63, magnesium 1.9. 07/29: Patient is currently on a Ventimask. Family and caregiver state that the patient has been more alert and able to open eyes with verbal stimuli and attempting to converse. Upon examination patient is unresponsive to verbal stimuli not opening eyes to painful stimuli. Patient remained afebrile. She is tolerating feedings with no residual. Telemetry shows normal sinus rhythm. Urine and blood cultures are negative. Sputum is showing Klebsiella pneumoniae. 07/30: Patient is tolerating tube feedings. She remains mostly unresponsive but he reacts occasionally to painful stimuli. She is continued on Rocephin and vancomycin. She has been afebrile, currently O2 saturation 95% on 2 L nasal cannula, blood pressure 122/53, heart rate running in the 70s and 80s. White count is normal, hemoglobin 8.9, platelet count 85. CO2 39, creatinine 0.72. Capillary blood glucose running between 108 and 112. Repeat chest x-ray shows improving right perihilar infiltrate. Small bilateral pleural effusions. Caregiver is at the bedside and states that the patient was awake and talking for about an hour this morning. Patient is currently unresponsive. Review of systems: Unable to be obtained as patient is unresponsive Objective - Vital Signs Vital signs: Vital Signs Temp 98.2 F 07/30/18 08:00 Pulse 82 07/30/18 09:00 Resp 22 07/30/18 09:00 BP 122/53 07/30/18 09:00 Pulse Ox 95 07/30/18 09:00 Intake & Output 07/29/18 07/30/18 07/30/18 18:59 06:59 18:59 Intake Total 1415 1310 335 Output Total 1950 1721 165 Balance -535 -411 170 Weight 64.2 kg Intake: IV 605 560 140 .9 kvo 200 200 60 Dextrose 5%-0.9% NaCl 1, 130 110 30 000 ml @ 10 mls/hr IV . Q24H DEANNA Rx#:[id number] Magnesium Sulfate-D5w Pmx 100 1 gm In Dextrose/Water 1 100ml.bag @ 100 mls/hr IVPB Q1H DEANNA Rx#: [id number] Vancomycin 750 mg In 125 250 Sodium Chloride 0.9% 250 ml @ 125 mls/hr IVPB Q12H [facility]AN[facility] Rx#:[id number] cefTRIAXone 2 gm In 50 50 Sodium Chloride 0.9% 50 ml @ 100 mls/hr IVPB Q24HR DEANNA Rx#:[id number] Intake, IV Titration 100 Amount Magnesium Sulfate-D5w Pmx 100 1 gm In Dextrose/Water 1 100ml.bag @ 100 mls/hr IVPB Q1H DEANNA Rx#: [id number] Tube Feeding 650 660 165 Other 60 90 30 Output: Urine 1950 1720 165 Stool 1 Other: Voiding Method Indwelling Catheter Indwelling Catheter - Exam General Appearance: Patient is unresponsive to verbal or painful stimuli. Caregiver at bedside Neck HEENT: Supple, no lymphadenopathy, no thyroid enlargement, no carotid bruits. Lungs: Decreased breaths in bilaterally specially the right side with fine rhonchi positive crackles and wheezes bilaterally. Chest Wall: Decreased expansion with deep inspiration no soreness no rash no deformity. Heart: Regular rate and rhythm, S1, S2 normal, no murmur, rub or gallop. Positive tachycardia Back: Symmetric, no curvature, ROM normal, no CVA tenderness. Abdomen: Soft, non-tender, bowel sounds active all four quadrants, no masses, no organomegaly. Fecal bulk seems to be resolved. Extremities: Extremities normal, atraumatic, no cyanosis or edema. Pulses: 2+ and symmetric. Skin: Skin color, texture, tugor normal, no rashes or lesions. Neurologic: No response to verbal or painful stimuli. - Labs CBC & Chem 7: 07/30/18 04:55 07/30/18 04:55 Labs: Abnormal Lab Results - Last 24 Hours (Table) 07/29/18 07/29/18 07/30/18 Range/Units 11:59 23:32 04:55 RBC (3.80-5.40) m/uL Hgb (11.4-16.0) gm/dL Hct (34.0-46.0) % RDW (11.5-15.5) % Plt Count (150-450) k/uL Chloride 96 L (98-107) mmol/L Carbon Dioxide 39 H (22-30) mmol/L BUN 19 H (7-17) mg/dL Glucose 111 H (74-99) mg/dL POC Glucose (mg/dL) 109 H 108 H (75-99) mg/dL Calcium 8.2 L (8.4-10.2) mg/dL 07/30/18 07/30/18 Range/Units 04:55 05:55 RBC 3.14 L (3.80-5.40) m/uL Hgb 8.9 L (11.4-16.0) gm/dL Hct 27.5 L (34.0-46.0) % RDW 18.5 H (11.5-15.5) % Plt Count 85 L (150-450) k/uL Chloride (98-107) mmol/L Carbon Dioxide (22-30) mmol/L BUN (7-17) mg/dL Glucose (74-99) mg/dL POC Glucose (mg/dL) 112 H (75-99) mg/dL Calcium (8.4-10.2) mg/dL Microbiology - Last 24 Hours (Table) 07/24/18 15:37 Blood Culture - Preliminary Blood No Growth after 120 hours Assessment and Plan Plan: 1 acute hypoxic respiratory failure secondary to aspiration pneumonia with severe sepsis, septic shock. Patient has been extubated. Consult with Dr. Vijaya ambrosio. 2 sepsis with septic shock from Klebsiella aspiration pneumonia, UTI and recent sepsis with staph infection previously. Antibiotics changed to ceftriaxone and vancomycin. 3 severe right-sided pneumonia: Possibly gram-negative versus aspiration, patient was started on vancomycin and rocephin. 4 dysphagia: Speech therapy to evaluate on Monday and if needed might need PEG tube. 5 severe lactic acidosis: Continue sepsis protocol repeat lactic acid and CBC. 6 hypothyroidism: Switch patient to IV thyroid medication have to does normally till she is able to take her oral intake. 7 hyperlipidemia: We'll hold her atorvastatin for now. 8 schizoaffective disorders has been on Risperdal, Cogentin and Depakote. 9 COPD: Patient has been on Pulmicort and Ventolin. 10 iron deficiency anemia. 11 DVT prophylaxis: Will continue patient on heparin subcutaneous. 12 GI prophylaxis: Patient will be on pantoprazole IV. 13. Fecal impaction contributing to aspiration. 14. Thrombocytopenia possibly related to Zosyn or from sepsis. Zosyn changed to ceftriaxone 15. Metabolic encephalopathy, possible anoxic encephalopathy. 16. Severe protein calorie malnutrition due to lack of oral intake for extended period requiring tube feedings Prognosis guarded Discharge plan: To be determined Impression and plan of care have been directed as dictated by the signing physician. Dominique Carpio nurse practitioner acting as scribe for signing physician.
--- NOTE | 2018-07-30 15:23 | P.PN ---
Subjective Progress Note Date: 07/30/18 This 78-year-old female patient was coming into the hospital because of altered mental status and respiratory failure. The patient was found to be by the caregivers to have difficulties with generalized weakness in her mentation seems to be altered specially over the past 24-48 hours prior to coming to the hospital. She had also difficulties and mobility and she was heart to respond. At that point the caregiver decided to bring this patient back to the hospital for further evaluation. The patient is known to me. I took care of her back in November 2018 for complications of acute hypoxic respiratory failure and acute bilateral aspiration pneumonia. Back then the patient was she is appropriate and the patient recovered and the patient was discharged home. Note that the patient at that time also had a UTI secondary to staphylococcal infection. Patient was brought to the ED for the above-mentioned reasons. Apparently there was a history of productive cough. The patient was found initially to be severely hypothermic. An ultrasound of the heart was done and it showed reduced LV filling pressures secondary to intravascular volume depletion/dehydration. There were 3 evaluation was done and the patient was found to have leukocytosis with a white cell count of 31. Her lactic acid level was at 4.0. Influenza screen was negative. Urinalysis was unremarkable. Chest x-ray showed extensive right lung pulmonary for treated consistent with an underlying pneumonia. The patient was intubated and placed on mechanical ventilator. The troponin catheter was inserted and following that the patient was sent to the ICU. An x-ray of the abdomen was also done that showed extensive moderate to severe fecal impaction within the large bowel. According to the caregiver, the patient was complaining of some abdominal distention big abdominal pain. Currently, the patient is in intensive care unit. The patient is sedated with Diprivan and she is calm and comfortable. She is on a mechanical ventilator and the patient is an assist-control mode rate of 12, tidal volume of 400 with FiO2 of 35% and a PEEP of 5. She is on pressors and she is running on levo fed at 0.03 mics per KG per minute. She is also on propofol running at 5 g per KG per minute. On today's evaluation of 07/26/2018 I'm seeing this patient for a follow-up. The patient was intubated for an extensive right lung pneumonia. The patient remains intubated on a mechanical ventilator. This morning the patient was an FiO2 of 35% with a PEEP of 5 and tidal volume of 400 with rate of 12. Follow- up chest x-ray showed improvement in the right lung pulmonary infiltrate. He was admitted location. The patient was taken off sedation. The patient a decent cough. No symptoms and orotracheal secretions. Based on that, we will give the patient is point is breathing trial with a pressure support of 5 and a PEEP of 5. After 1 hour of spontaneous breathing trial, the patient had a blood. That showed a pH of 7.39 with a pCO2 of 39 and pO2 of 57. Based on that , I extubated this patient to a Ventimask. The patient is doing well. Noted orogastric tube was removed and the patient was given a NG tube. She was having extensive amount of fecal impaction. She underwent manual disimpaction. The patient was also given lactulose to facilitate bowel activity. The follow -up chest x-ray from today still showing fecal stasis impaction still present. The patient has not been fed yet. The abdomen is nondistended. The patient is afebrile. White cell count is at 9.5. The antibiotic coverage includes a combination of Rocephin and vancomycin as the patient was found to have Klebsiella pneumonia in the sputum. He also noted a drop in the platelet counts for that reason the Zosyn was discontinued. I also took an opportunity to discontinue the subcu heparin considering related thrombocytopenia. The patient is currently wearing SCDs. She is awake. She is following some simple commands to the caregivers. On today's evaluation of 07/27/2018, I'm seeing this patient for a follow-up. As mentioned, the patient was extubated yesterday and she was on a Ventimask 40 % throughout the night. This morning she was still on 40% Ventimask. She had a congested cough. Rest or secretions were mainly in the upper airway and the lower lungs were essentially more clear. Based on that, we attempted the tracheal suctioning. Subsequently the patient became more short of breath and she had to be placed on BiPAP at a pressure of 12/5 centimeters of water with an FiO2 of 100%. The patient is looking better while on the BiPAP. She started an NG tube in place. She had had a bowel movement that the patient is being given laxatives. She'll feeds will be started today at a very low rate. No fever. No chills. The chest x-ray from today shows some worsening of the right upper lobe pulmonary infiltrate compatible with pneumonia. There are small better pleural effusion. NG tube is in a good location. The patient remains on a combination of IV Rocephin 2 g every 24 hours and IV vancomycin. Antibiotics have been modified as the patient was found to have Klebsiella pneumoniae in the sputum. She is lethargic. At times she arouses yet she is not fully interactive at this point in time. Platelet counts are remaining low. No other events otherwise for now. Yet again, the patient was found to be hypothermic and the patient was given external warming. Temperature dropped as low as 96.5. On today's evaluation of 07/28/2018, the patient is still not responsive. She responds only to deep painful stimulation. I took her off the BiPAP. The patient had some upper airway secretion. Deep tracheal suctioning was done and mucus was aspirated. The patient has a weak cough. Were able to restore patency of her upper airway. Currently she is a 40% Ventimask pH is starting her tube feeds. She is on a combination of IV Rocephin and vancomycin To the patient had aspirated and the patient developed Pneumonia in Her Sputum. She Is Receiving Enteral Feeding for Nutritional Support and She Is on Goal for Now. Note That This Morning She Was on a BiPAP Pressure of 12/5 Cm of Water and She Was Taken off the BiPAP. She Is Producing Stools. She Is Starting the Enteral Feeding. She Is Not Developing Any Abdominal Distention. Hemoglobin from today is 6.9 and the patient will be receiving a unit of packed RBC. No pressors. She was given a dose of Lasix yesterday. She is a negative fluid balance. We'll continue IV Lasix for another 24 hours. Chest x-ray from today shows stable about pulmonary infiltrates more so on the right and the patient is stable bilateral pleural effusions. Unfortunately, she is extremely lethargic and weak and she does have underlying developmental delay which is obviously affecting our ability at provide this patient if all and fast recovery. On 07/29/2018On 11 essentially the same and stable. Patient is on a 40% Ventimask. Mentation is not much improved. She'll occasionally reacts to painful stimulation and repeated stimulation verbally. Otherwise she is lethargic and sleeping most of the time. She is tolerating his tube feeds. No signs of any respiratory distress. Chest x-ray findings and essentially stable. The patient has bilateral pleural effusion and extensive consolidation of the right lung and limited consolidation of the left lung. The patient has been negative fluid balance while being on Lasix 40 mg IV push every 12 hours. Antibiotic coverage includes accommodation Rocephin and vancomycin. No agitation. No restlessness. No aspiration. No bowel movement for the past 24 hours and the patient is on lactulose 20 MO's once a day. No abdominal distention. Caregivers at the bedside. I think the prognosis essentially for yet do not think there is any intervention for the the caregivers and the nurses will be taking care of him to make suggestions about her CODE STATUS. I have explained to them on multiple occasions that this may not be a on a favorable outcome. On 07/30/2018 I'm seeing this patient for a follow-up. On today's evaluation, the patient is awake. She is opening her eyes. At times she is following commands. Despite this limited neurologic improvement, the patient is still very weak. She has a weak cough. Unable to take any oral feeds. The patient has an NG tube in place and her tube feeds are at goal. She is being diuresed with IV Lasix and she is negative fluid balance chest x-ray shows improvement of the right-sided pulmonary infiltrates. There is still some bilateral pleural effusions in the lung bases. She remains on accommodation Rocephin and Zithromax. She is calm and comfortable. A repeat abdominal film was done and there was evidence of normal bowel gas pattern. No significant fecal material is present. No fecal impaction. Based on this, I kept a lactulose and I kept the enteral feeding for nutritional support. No abdominal pain. No abdominal distention. No fever. No chills. White cell count of 5.6. Function is stable. No aspiration. No other complaints otherwise for now. Objective - Vital Signs Vital signs: Vital Signs Temp 97.9 F 07/30/18 12:00 Pulse 86 07/30/18 14:00 Resp 24 07/30/18 14:00 BP 122/52 07/30/18 14:00 Pulse Ox 94 L 07/30/18 14:00 Intake & Output 07/29/18 07/30/18 07/30/18 18:59 06:59 18:59 Intake Total 1415 1310 995 Output Total 1950 1721 1250 Balance -535 -411 -255 Weight 64.2 kg 64.2 kg Intake: IV 605 560 290 .9 kvo 200 200 150 Dextrose 5%-0.9% NaCl 1, 130 110 90 000 ml @ 10 mls/hr IV . Q24H DEANNA Rx#:[id number] Magnesium Sulfate-D5w Pmx 100 1 gm In Dextrose/Water 1 100ml.bag @ 100 mls/hr IVPB Q1H DEANNA Rx#: [id number] Vancomycin 750 mg In 125 250 Sodium Chloride 0.9% 250 ml @ 125 mls/hr IVPB Q12H DEANNA Rx#:[id number] cefTRIAXone 2 gm In 50 50 Sodium Chloride 0.9% 50 ml @ 100 mls/hr IVPB Q24HR DEANNA Rx#:[id number] Intake, IV Titration 100 Amount Magnesium Sulfate-D5w Pmx 100 1 gm In Dextrose/Water 1 100ml.bag @ 100 mls/hr IVPB Q1H DEANNA Rx#: [id number] Oral 40 Tube Feeding 650 660 605 Other 60 90 60 Output: Urine 1949 1720 1250 Stool 1 Other: Voiding Method Indwelling Catheter Indwelling Catheter Indwelling Catheter - Exam Patient is calm comfortable, her mental status fluctuates. She is currently on 4 L of oxygen by nasal cannula. She is awake. She looks around and occasionally follows some simple commands.. Head exam was generally normal. There was no scleral icterus or corneal arcus. Mucous membranes were moist. Neck was supple and without jugular venous distension, thyromegaly, or carotid bruits. Carotids were easily palpable bilaterally. There was no adenopathy. Lungs sounds reveal some rhonchi on the right compared to left. Few scattered expiratory wheezes. Otherwise breath sounds are equal and symmetrical bilaterally. Cardiac exam revealed the PMI to be normally situated and sized. The rhythm was regular and no extrasystoles were noted during several minutes of auscultation. The first and second heart sounds were normal and physiologic splitting of the second heart sound was noted. There were murmurs, no rubs, clicks, or gallops. The patient had a systolic ejection murmur consistent with her underlying aortic stenosis. This is grade 3/6. Abdominal exam revealed normal bowel sounds. The abdomen was soft, non-tender, and without masses, organomegaly, or appreciable enlargement of the abdominal aorta. Bowel sounds are hypoactive and abdomen is slightly distended Examination of the extremities revealed easily palpable radial, femoral and pedal pulses. There was no cyanosis, clubbing or edema. Examination of the skin revealed no evidence of significant rashes, suspicious appearing nevi or other concerning lesions. Neurologically less lethargic and more awake on today's evaluation and occasionally she is following some simple commands. Not fully interactive. No focal neurological deficit at this point in time. - Labs CBC & Chem 7: 07/30/18 04:55 07/30/18 04:55 Labs: Abnormal Lab Results - Last 24 Hours (Table) 07/29/18 07/30/18 07/30/18 Range/Units 23:32 04:55 04:55 RBC 3.14 L (3.80-5.40) m/uL Hgb 8.9 L (11.4-16.0) gm/dL Hct 27.5 L (34.0-46.0) % RDW 18.5 H (11.5-15.5) % Plt Count 85 L (150-450) k/uL Chloride 96 L (98-107) mmol/L Carbon Dioxide 39 H (22-30) mmol/L BUN 19 H (7-17) mg/dL Glucose 111 H (74-99) mg/dL POC Glucose (mg/dL) 108 H (75-99) mg/dL Calcium 8.2 L (8.4-10.2) mg/dL 07/30/18 07/30/18 Range/Units 05:55 11:45 RBC (3.80-5.40) m/uL Hgb (11.4-16.0) gm/dL Hct (34.0-46.0) % RDW (11.5-15.5) % Plt Count (150-450) k/uL Chloride (98-107) mmol/L Carbon Dioxide (22-30) mmol/L BUN (7-17) mg/dL Glucose (74-99) mg/dL POC Glucose (mg/dL) 112 H 117 H (75-99) mg/dL Calcium (8.4-10.2) mg/dL Microbiology - Last 24 Hours (Table) 07/24/18 15:37 Blood Culture - Preliminary Blood No Growth after 120 hours Assessment and Plan Plan: Assessment 1 acute sepsis secondary to an extensive right lung pneumonia, addition to a lateral pleural effusions. We have grown Klebsiella pneumoniae from the patient's sputum. Clinically the patient is less short of breath compared to yesterday and she is currently on 4 L of oxygen nasal cannula. She has a weak cough. Her chest x-ray is showing some improvement in the right lung pulmonary infiltrate. Pleural effusions are still present. The patient is being diuresis. 2 acute hypotension secondary to above, recovered and the patient is currently maintaining her on blood pressure which is covered with broad-spectrum antibiotics. 3 acute leukocytosis secondary to above recovered and the white cell count normalized, and the white cell count is normalized at 5.9 4 acute lactic acidosis secondary to above 5 hypothermia with altered mentation secondary to above, recovered, with subsequent recurrence in the lower upper trend the patient has been placed on external warming. 6 chronic anemia 7 seizure disorder, will be switched to liquid Depakote 8 developmental delay/Parkinson's disease/dementia/schizoaffective disorder 9 moderate degree of aortic stenosis with moderate pulmonary hypertension based on recent echocardiogram and the patient also has a mitral valve prolapse 10 difficulty with mobility and gait and the patient requires assistance with activities of daily life and 24/ 7 care 11 hypertension 12 hyperlipidemia 13 hypothyroidism 14 mild thrombocytopenia, improving 15 extensive fecal impaction him a post-enema, post lactulose treatment, post mechanical disimpaction. The patient is receiving laxatives and the patient was started on enteral feeding for nutritional support 16 thrombocytopenia, likely medication induced. Could be consumptive secondary to underlying sepsis. Plan Patient seems to be more interactive and more awake on today's evaluation. The pneumonia on the right is improving. Nevertheless her long-term prognosis remains poor. I have on 40 of oxygen by nasal cannula. I do not think she is ready for any swallow. I think she will fail her swallow evaluation I think it' s more reasonable to have a PEG tube insertion of a later stage if the patient and the legal guardian wants to continue the ongoing treatment. Overall, my impression, this patient's has a poor outcome. She has lost her ability to swallow. She is also having a weak cough. Her mentation is diminishedalert enough to perform dequate pulmonary toileting. I'm very much concerned that this patient would fail again from the pulmonary standpoint and she isat a high risk for that she will fail again requiring intubation mechanical ventilation. Will monitor mental status. Discussed again with a nursing caregivers. I think her prognosis no matter what is going to be quite poor specially with her comorbidities. We'll continue to follow. I may need to work on changing, post status to a DO NOT INTUBATE, if the caregivers at agreeable. We'll continue to follow.meeting has been scheduled to take place along with the public guardian and this will be done tomorrow 10:00 in the morning in the intensive care unit. Would recommend at least a DNR/DNI CODE STATUS.
[2018-07-30 18:43] LABS: Glucose,Whole Blood 102 mg/dL (75-99)
[2018-07-30 23:45] LABS: Glucose,Whole Blood 99 mg/dL (75-99)
[2018-07-31] MEDS: DEXTROSE 5%-0.9% NACL 1,000 ML IV SCH ×3 (00:02→18:14)
[2018-07-31] MEDS: NOREPINEPHRINE 32 MG in SODIUM CHLORIDE 0.9% 218 ML IV SCH (00:28)
[2018-07-31 05:32] LABS: Anisocytosis Slight; Basophils % (A) 0 %; Eosinophils # (A) 0.2 k/uL (0-0.7); Eosinophils % (A) 3 %; HCT 26.9 % (34.0-46.0); HGB 8.6 gm/dL (11.4-16.0); Hypochromasia Slight; Lymphocytes # (A) 1.2 k/uL (1.0-4.8); Lymphocytes % (A) 17 %; MCH 28.9 pg (25.0-35.0); MCHC 31.9 g/dL (31.0-37.0); MCV 90.6 fL (80.0-100.0); Mean Platelet Volume 7.2; Monocytes # (A) 0.5 k/uL (0-1.0); Monocytes % (A) 7 %; Neutrophils % (A) 72 %; Platelet Count 103 k/uL (150-450); RBC 2.97 m/uL (3.80-5.40); RDW 18.6 % (11.5-15.5)
[2018-07-31 05:41] LABS: Anion Gap 2 mmol/L; Blood Urea Nitrogen 26 mg/dL (7-17); Calcium 8.2 mg/dL (8.4-10.2); Carbon Dioxide 40 mmol/L (22-30); Chloride 93 mmol/L (98-107); Glucose 109 mg/dL (74-99); Magnesium 1.8 mg/dL (1.6-2.3); Potassium 3.9 mmol/L (3.5-5.1); Sodium 135 mmol/L (137-145)
[2018-07-31] MEDS ORDERED: Potassium Replacement Protocol 1 EACH MISC MISCELLANE PRN (05:53)
[2018-07-31] MEDS ORDERED: POTASSIUM BICARBONATE/CIT AC 20 MEQ TABLET.EFF NG-TUBE SCH (06:00)
[2018-07-31] MEDS: MAGNESIUM SULFATE-D5W PMX 1 GM in DEXTROSE/WATER 1 100ML.BAG IVPB SCH ×2 (06:15→07:49)
[2018-07-31] MEDS: LEVOTHYROXINE 125 MCG TAB PO SCH (06:38)
[2018-07-31] MEDS ORDERED: VANCOMYCIN TROUGH DUE 1 EACH MISC MISCELLANE ONE (07:00)
[2018-07-31] MEDS: ALBUTEROL NEBULIZED 2.5 MG/3 ML INHALATION SCH ×4 (07:26→19:14)
[2018-07-31] MEDS: BUDESONIDE 0.25 MG/2 ML NEBU INHALATION SCH ×2 (07:26→19:14)
[2018-07-31] MEDS: LACTULOSE 20 GM/30 ML CUP PO SCH ×2 (09:09→10:44)
[2018-07-31] MEDS: FERROUS SULFATE ORAL ELIXIR 300 MG/5 ML CUP PO SCH ×2 (09:09→21:33)
[2018-07-31] MEDS: BENZTROPINE MESYLATE 0.5 MG TAB PO SCH ×2 (09:09→21:33)
[2018-07-31] MEDS: ATORVASTATIN 10 MG TAB PO SCH (09:09)
[2018-07-31] MEDS: FUROSEMIDE 10 MG/ML 4 ML VIAL IV SCH ×2 (09:09→21:33)
[2018-07-31] MEDS: ASPIRIN 81 MG PO SCH (09:09)
[2018-07-31] MEDS: PANTOPRAZOLE 40 MG/10 ML VIAL IV SCH (09:10)
[2018-07-31] MEDS: risperiDONE 1 MG TAB PO SCH ×2 (09:10→21:33)
[2018-07-31] MEDS: VANCOMYCIN 750 MG in SODIUM CHLORIDE 0.9% 250 ML IVPB SCH ×2 (09:11→23:56)
[2018-07-31] MEDS: VALPROIC ACID ORAL SOLN 250 MG/5 ML CUP NG-TUBE SCH ×2 (10:05→21:33)
[2018-07-31] MEDS: HEPARIN SODIUM,PORCINE 5,000 UNIT/ML 1 ML VIAL SQ SCH (10:44)
[2018-07-31] MEDS: DIVALPROEX 250 MG TABLET.DR PO SCH (10:44)
--- NOTE | 2018-07-31 12:01 | P.PN ---
Subjective Progress Note Date: 07/31/18 This 78-year-old female patient was coming into the hospital because of altered mental status and respiratory failure. The patient was found to be by the caregivers to have difficulties with generalized weakness in her mentation seems to be altered specially over the past 24-48 hours prior to coming to the hospital. She had also difficulties and mobility and she was heart to respond. At that point the caregiver decided to bring this patient back to the hospital for further evaluation. The patient is known to me. I took care of her back in November 2018 for complications of acute hypoxic respiratory failure and acute bilateral aspiration pneumonia. Back then the patient was she is appropriate and the patient recovered and the patient was discharged home. Note that the patient at that time also had a UTI secondary to staphylococcal infection. Patient was brought to the ED for the above-mentioned reasons. Apparently there was a history of productive cough. The patient was found initially to be severely hypothermic. An ultrasound of the heart was done and it showed reduced LV filling pressures secondary to intravascular volume depletion/dehydration. There were 3 evaluation was done and the patient was found to have leukocytosis with a white cell count of 31. Her lactic acid level was at 4.0. Influenza screen was negative. Urinalysis was unremarkable. Chest x-ray showed extensive right lung pulmonary for treated consistent with an underlying pneumonia. The patient was intubated and placed on mechanical ventilator. The troponin catheter was inserted and following that the patient was sent to the ICU. An x-ray of the abdomen was also done that showed extensive moderate to severe fecal impaction within the large bowel. According to the caregiver, the patient was complaining of some abdominal distention big abdominal pain. Currently, the patient is in intensive care unit. The patient is sedated with Diprivan and she is calm and comfortable. She is on a mechanical ventilator and the patient is an assist-control mode rate of 12, tidal volume of 400 with FiO2 of 35% and a PEEP of 5. She is on pressors and she is running on levo fed at 0.03 mics per KG per minute. She is also on propofol running at 5 g per KG per minute. On today's evaluation of 07/26/2018 I'm seeing this patient for a follow-up. The patient was intubated for an extensive right lung pneumonia. The patient remains intubated on a mechanical ventilator. This morning the patient was an FiO2 of 35% with a PEEP of 5 and tidal volume of 400 with rate of 12. Follow- up chest x-ray showed improvement in the right lung pulmonary infiltrate. He was admitted location. The patient was taken off sedation. The patient a decent cough. No symptoms and orotracheal secretions. Based on that, we will give the patient is point is breathing trial with a pressure support of 5 and a PEEP of 5. After 1 hour of spontaneous breathing trial, the patient had a blood. That showed a pH of 7.39 with a pCO2 of 39 and pO2 of 57. Based on that , I extubated this patient to a Ventimask. The patient is doing well. Noted orogastric tube was removed and the patient was given a NG tube. She was having extensive amount of fecal impaction. She underwent manual disimpaction. The patient was also given lactulose to facilitate bowel activity. The follow -up chest x-ray from today still showing fecal stasis impaction still present. The patient has not been fed yet. The abdomen is nondistended. The patient is afebrile. White cell count is at 9.5. The antibiotic coverage includes a combination of Rocephin and vancomycin as the patient was found to have Klebsiella pneumonia in the sputum. He also noted a drop in the platelet counts for that reason the Zosyn was discontinued. I also took an opportunity to discontinue the subcu heparin considering related thrombocytopenia. The patient is currently wearing SCDs. She is awake. She is following some simple commands to the caregivers. On today's evaluation of 07/27/2018, I'm seeing this patient for a follow-up. As mentioned, the patient was extubated yesterday and she was on a Ventimask 40 % throughout the night. This morning she was still on 40% Ventimask. She had a congested cough. Rest or secretions were mainly in the upper airway and the lower lungs were essentially more clear. Based on that, we attempted the tracheal suctioning. Subsequently the patient became more short of breath and she had to be placed on BiPAP at a pressure of 12/5 centimeters of water with an FiO2 of 100%. The patient is looking better while on the BiPAP. She started an NG tube in place. She had had a bowel movement that the patient is being given laxatives. She'll feeds will be started today at a very low rate. No fever. No chills. The chest x-ray from today shows some worsening of the right upper lobe pulmonary infiltrate compatible with pneumonia. There are small better pleural effusion. NG tube is in a good location. The patient remains on a combination of IV Rocephin 2 g every 24 hours and IV vancomycin. Antibiotics have been modified as the patient was found to have Klebsiella pneumoniae in the sputum. She is lethargic. At times she arouses yet she is not fully interactive at this point in time. Platelet counts are remaining low. No other events otherwise for now. Yet again, the patient was found to be hypothermic and the patient was given external warming. Temperature dropped as low as 96.5. On today's evaluation of 07/28/2018, the patient is still not responsive. She responds only to deep painful stimulation. I took her off the BiPAP. The patient had some upper airway secretion. Deep tracheal suctioning was done and mucus was aspirated. The patient has a weak cough. Were able to restore patency of her upper airway. Currently she is a 40% Ventimask pH is starting her tube feeds. She is on a combination of IV Rocephin and vancomycin To the patient had aspirated and the patient developed Pneumonia in Her Sputum. She Is Receiving Enteral Feeding for Nutritional Support and She Is on Goal for Now. Note That This Morning She Was on a BiPAP Pressure of 12/5 Cm of Water and She Was Taken off the BiPAP. She Is Producing Stools. She Is Starting the Enteral Feeding. She Is Not Developing Any Abdominal Distention. Hemoglobin from today is 6.9 and the patient will be receiving a unit of packed RBC. No pressors. She was given a dose of Lasix yesterday. She is a negative fluid balance. We'll continue IV Lasix for another 24 hours. Chest x-ray from today shows stable about pulmonary infiltrates more so on the right and the patient is stable bilateral pleural effusions. Unfortunately, she is extremely lethargic and weak and she does have underlying developmental delay which is obviously affecting our ability at provide this patient if all and fast recovery. On 07/29/2018On 11 essentially the same and stable. Patient is on a 40% Ventimask. Mentation is not much improved. She'll occasionally reacts to painful stimulation and repeated stimulation verbally. Otherwise she is lethargic and sleeping most of the time. She is tolerating his tube feeds. No signs of any respiratory distress. Chest x-ray findings and essentially stable. The patient has bilateral pleural effusion and extensive consolidation of the right lung and limited consolidation of the left lung. The patient has been negative fluid balance while being on Lasix 40 mg IV push every 12 hours. Antibiotic coverage includes accommodation Rocephin and vancomycin. No agitation. No restlessness. No aspiration. No bowel movement for the past 24 hours and the patient is on lactulose 20 MO's once a day. No abdominal distention. Caregivers at the bedside. I think the prognosis essentially for yet do not think there is any intervention for the the caregivers and the nurses will be taking care of him to make suggestions about her CODE STATUS. I have explained to them on multiple occasions that this may not be a on a favorable outcome. On 07/30/2018 I'm seeing this patient for a follow-up. On today's evaluation, the patient is awake. She is opening her eyes. At times she is following commands. Despite this limited neurologic improvement, the patient is still very weak. She has a weak cough. Unable to take any oral feeds. The patient has an NG tube in place and her tube feeds are at goal. She is being diuresed with IV Lasix and she is negative fluid balance chest x-ray shows improvement of the right-sided pulmonary infiltrates. There is still some bilateral pleural effusions in the lung bases. She remains on accommodation Rocephin and Zithromax. She is calm and comfortable. A repeat abdominal film was done and there was evidence of normal bowel gas pattern. No significant fecal material is present. No fecal impaction. Based on this, I kept a lactulose and I kept the enteral feeding for nutritional support. No abdominal pain. No abdominal distention. No fever. No chills. White cell count of 5.6. Function is stable. No aspiration. No other complaints otherwise for now. On 07/31/2018, we see the patient to be again more awake and interactive compared to yesterday. The patient had an episode where she had some bleeding from her right nostril. This was controlled locally. She has an NG tube in the left nostril pH is awaiting her tube feeds. No significant rest or distress pH is currently on 2 L of oxygen by nasal cannula. She is being diuresed IV Lasix. She is on a combination of Rocephin and vancomycin. She is arousable. She is awake. Her cough is weak. However overall, feeling better. Meeting was done with a public guardian. The public guardian has consented for a PEG tube insertion and for that reason a GI consultation was obtained. White cell count is at 7.0. The rest of the electrodes are all within normal limits. She is getting slightly alkalotic along with her diuretics. Objective - Vital Signs Vital signs: Vital Signs Temp 97.9 F 07/31/18 08:00 Pulse 89 07/31/18 11:15 Resp 24 07/31/18 10:00 BP 123/56 07/31/18 10:00 Pulse Ox 94 L 07/31/18 10:00 Intake & Output 07/30/18 07/31/18 07/31/18 18:59 06:59 18:59 Intake Total 1420 915 400 Output Total 1502 1510 500 Balance -82 -595 -100 Weight 64.2 kg 64.2 kg Intake: IV 410 360 120 .9 kvo 230 240 80 Dextrose 5%-0.9% NaCl 1, 130 120 40 000 ml @ 10 mls/hr IV . Q24H [facility] Rx#:[id number] cefTRIAXone 2 gm In 50 Sodium Chloride 0.9% 50 ml @ 100 mls/hr IVPB Q24HR [facility] Rx#:[id number] Oral 40 Tube Feeding 880 495 220 Other 90 60 60 Output: Urine 1500 1510 500 Stool 2 Other: Voiding Method Indwelling Catheter Indwelling Catheter Indwelling Catheter - Exam Patient is calm comfortable, her mental status fluctuates. She is currently on 4 L of oxygen by nasal cannula. She is awake. She looks around and occasionally follows some simple commands.. Head exam was generally normal. There was no scleral icterus or corneal arcus. Mucous membranes were moist. Neck was supple and without jugular venous distension, thyromegaly, or carotid bruits. Carotids were easily palpable bilaterally. There was no adenopathy. Lungs sounds reveal some rhonchi on the right compared to left. Few scattered expiratory wheezes. Otherwise breath sounds are equal and symmetrical bilaterally. Cardiac exam revealed the PMI to be normally situated and sized. The rhythm was regular and no extrasystoles were noted during several minutes of auscultation. The first and second heart sounds were normal and physiologic splitting of the second heart sound was noted. There were murmurs, no rubs, clicks, or gallops. The patient had a systolic ejection murmur consistent with her underlying aortic stenosis. This is grade 3/6. Abdominal exam revealed normal bowel sounds. The abdomen was soft, non-tender, and without masses, organomegaly, or appreciable enlargement of the abdominal aorta. Bowel sounds are hypoactive and abdomen is slightly distended Examination of the extremities revealed easily palpable radial, femoral and pedal pulses. There was no cyanosis, clubbing or edema. Examination of the skin revealed no evidence of significant rashes, suspicious appearing nevi or other concerning lesions. Neurologically less lethargic and more awake on today's evaluation and occasionally she is following some simple commands. Not fully interactive. No focal neurological deficit at this point in time. - Labs CBC & Chem 7: 07/31/18 04:55 07/31/18 04:55 Labs: Abnormal Lab Results - Last 24 Hours (Table) 07/30/18 07/31/18 07/31/18 Range/Units 18:41 04:55 04:55 RBC 2.97 L (3.80-5.40) m/uL Hgb 8.6 L (11.4-16.0) gm/dL Hct 26.9 L (34.0-46.0) % RDW 18.6 H (11.5-15.5) % Plt Count 103 L (150-450) k/uL Sodium 135 L (137-145) mmol/L Chloride 93 L (98-107) mmol/L Carbon Dioxide 40 H (22-30) mmol/L BUN 26 H (7-17) mg/dL Glucose 109 H (74-99) mg/dL POC Glucose (mg/dL) 102 H (75-99) mg/dL Calcium 8.2 L (8.4-10.2) mg/dL Microbiology - Last 24 Hours (Table) 07/24/18 15:37 Blood Culture - Final Blood No Growth after 144 hours Assessment and Plan Plan: Assessment 1 acute sepsis secondary to an extensive right lung pneumonia, addition to a lateral pleural effusions. We have grown Klebsiella pneumoniae from the patient's sputum. She has a weak cough. Her chest x-ray is showing some improvement in the right lung pulmonary infiltrate. Pleural effusions are still present. The patient is being diuresis. On today's evaluation, the patient still stable on 2 L of oxygen by nasal cannula. No signs of any respiratory distress for now. 2 acute hypotension secondary to above, recovered and the patient is currently maintaining her on blood pressure which is covered with broad-spectrum antibiotics. 3 acute leukocytosis secondary to above recovered 4 acute lactic acidosis secondary to above 5 hypothermia with altered mentation secondary to above, recovered, with subsequent recurrence in the lower upper trend the patient has been placed on external warming. 6 chronic anemia 7 seizure disorder, will be switched to liquid Depakote 8 developmental delay/Parkinson's disease/dementia/schizoaffective disorder 9 moderate degree of aortic stenosis with moderate pulmonary hypertension based on recent echocardiogram and the patient also has a mitral valve prolapse 10 difficulty with mobility and gait and the patient requires assistance with activities of daily life and 24/ 7 care 11 hypertension 12 hyperlipidemia 13 hypothyroidism 14 mild thrombocytopenia, improving 15 extensive fecal impaction him a post-enema, post lactulose treatment, post mechanical disimpaction. The patient is receiving laxatives and the patient was started on enteral feeding for nutritional support Plan Continue the antibiotic treatment. Continue diuretics. Repeat chest x-ray in the morning. PEG tube in a.m. We'll follow.
[2018-07-31 12:08] LABS: Glucose,Whole Blood 120 mg/dL (75-99)
--- NOTE | 2018-07-31 13:36 | P.CONS ---
History of Present Illness - Reason for Consult Consult date: 07/31/18 PEG tube insertion Requesting physician: Wilmer Dunn - Chief Complaint Altered mental status respiratory failure - History of Present Illness 78-year-old female with a history of developmental delay schizoaffective disorder admitted with acute respiratory failure and sepsis pneumonia unable to meet her nutritional needs. Patient has been fed tube feeds via NG tube and determined that she is not able to tolerate orally nutrition without risk for aspiration. She has lost her ability to swallow adequately very weak. Lethargic unable to provide a bedside swallow evaluation. Requires 24-hour care. Patient has a public guarding request for PEG tube insertion for nutrition support. White count 7. Hemoglobin 8.6. Receiving antibiotics. Review of Systems Medical records nursing staff for review of systems unable to obtain secondary to her mental status nonverbal status Constitutional: Denies fever, chills, sweats, weight gain, or loss. HEENT: Negative for migraines, blurred vision or loss, earaches, drainage, tinnitus, oral mucosal lesions, dysphagia, or odynophagia. CARDIAC: Negative for chest pain, arrhythmias, or palpitation. RESPIRATORY: Admitted with shortness of breath no reports of, hemoptysis, cough , or sputum production. GI: See HPI for pertinent findings. : Negative for hematuria, urgency, frequency, polyuria, or dysuria. GYNc: Negative vaginal discharge. MUSCULOSKELETAL: Negative for muscle aches, swelling, arthritis, and arthralgias. NEUROLOGIC: Negative for stroke or TIA. ENDOCRINE: Negative for thyroid problems. SKIN: Negative for rash or itching. PSYCHIATRIC: History of developmental delay schizoaffective disorder ROS unobtainable: due to mental status Past Medical History Past Medical History: Heart Failure, Hyperlipidemia, Hypertension, Mitral Valve Prolapse (MVP), Seizure Disorder, Thyroid Disorder Additional Past Medical History / Comment(s): History of Parkinson's disease, dementia, developmental delay, schizoaffective disorder, seizure disorder, chronic anemia, recurrent UTIs, recent hospitalization for septic shock secondary to underlying pneumonia, difficulty with mobility and gait and the patient has a gait dysfunction, hypertension, hyperlipidemia, difficulties with comprehension, hypothyroidism, moderate degree of aortic stenosis with a preserved LV function and ejection fraction of 50-55% and the patient has moderate pulmonary hypertension with a PA pressure of 49. History of Any Multi-Drug Resistant Organisms: None Reported Past Surgical History: Joint Replacement Additional Past Surgical History / Comment(s): RIGHT HIP, ORIF OF RIGHT ELBOW (). Past Anesthesia/Blood Transfusion Reactions: No Reported Reaction Past Psychological History: Depression, Schizophrenia Smoking Status: Former smoker Past Alcohol Use History: None Reported Past Drug Use History: None Reported - Past Family History Brother(s) Family Medical History: Seizure Disorder Additional Family Medical History / Comment(s): parkinsons Medications and Allergies Home Medications Medication Instructions Recorded Confirmed Type Albuterol Nebulized [Ventolin 1 applic INHALATION RT-QID 09/09/14 07/24/18 History Nebulized] Aspirin 81 mg PO DAILY 09/09/14 07/24/18 History Benztropine Mesylate [Cogentin] 0.5 mg PO BID 09/09/14 07/24/18 History risperiDONE [RisperDAL] 1 mg PO BID 09/09/14 07/24/18 History Atorvastatin [Lipitor] 5 mg PO DAILY 06/16/18 07/24/18 History Budesonide [Pulmicort] 0.25 mg INHALATION RT-BID 06/16/18 07/24/18 History Cranberry Fruit Extract [Cranberry] 200 mg PO DAILY 06/16/18 07/24/18 History Ferrous Sulfate [Iron] 325 mg PO BID 06/16/18 07/24/18 History Levothyroxine Sodium [Synthroid] 125 mcg PO DAILY 06/16/18 07/24/18 History Acetaminophen Tab [Tylenol Tab] 500 mg PO Q6H PRN 07/24/18 07/24/18 History Divalproex Sodium 250 mg PO BID 07/24/18 07/24/18 History Furosemide [Lasix] 20 mg PO DAILY 07/24/18 07/24/18 History Meloxicam 7.5 mg PO DAILY 07/24/18 07/24/18 History Naproxen Sodium [Aleve] 220 mg PO DAILY PRN 07/24/18 07/24/18 History Allergies Allergy/AdvReac Type Severity Reaction Status Date / Time sulfamethoxazole Allergy Rash/Hives Verified 07/24/18 15:44 [From Bactrim] trimethoprim [From Bactrim] Allergy Rash/Hives Verified 07/24/18 15:44 Physical Exam Vitals: Vital Signs Temp Pulse Resp BP Pulse Ox 07/31/18 11:15 89 07/31/18 11:00 86 07/31/18 10:00 82 24 123/56 94 L 07/31/18 09:00 82 25 H 115/52 93 L 07/31/18 08:00 97.9 F 88 26 H 117/58 93 L 07/31/18 07:37 88 07/31/18 07:28 87 98 07/31/18 07:00 81 27 H 124/47 94 L 07/31/18 06:00 80 24 124/49 96 07/31/18 05:00 89 29 H 145/121 95 07/31/18 04:00 98.2 F 90 26 H 138/62 93 L 07/31/18 03:00 94 22 133/64 96 07/31/18 02:00 93 26 H 123/69 90 L 07/31/18 01:00 92 26 H 113/51 92 L 07/31/18 00:00 98.0 F 92 26 H 130/60 94 L 07/30/18 23:00 95 29 H 120/60 95 07/30/18 22:00 85 26 H 127/66 93 L 07/30/18 21:00 80 15 124/56 94 L 07/30/18 20:31 88 07/30/18 20:19 89 28 H 07/30/18 20:00 98.6 F 85 27 H 121/77 97 07/30/18 19:00 90 19 121/77 94 L 07/30/18 18:00 86 26 H 124/57 96 07/30/18 17:10 93 07/30/18 17:00 90 25 H 124/57 95 07/30/18 16:15 25 H 07/30/18 16:00 98.1 F 90 18 119/57 95 07/30/18 15:00 87 25 H 121/53 94 L 07/30/18 14:00 86 24 122/52 94 L Intake and Output 07/30/18 07/31/18 07/31/18 22:59 06:59 14:59 Intake Total 655 685 400 Output Total 927 835 500 Balance -272 -150 -100 Intake: IV 240 240 120 .9 kvo 160 160 80 Dextrose 5%-0.9% NaCl 1, 80 80 40 000 ml @ 10 mls/hr IV . Q24H [facility] Rx#:[id number] Tube Feeding 385 385 220 Other 30 60 60 Output: Urine 925 835 500 Stool 2 Other: Voiding Method Indwelling Catheter Indwelling Catheter Indwelling Catheter Weight 64.2 kg General appearance: The patient is nonverbal in no acute distress. HET: Head is normocephalic and atraumatic. Pupils are equal and reactive. Oropharynx is clear without lesions. NG tube with feeds. Neck: Supple without lymphadenopathy. Trachea midline. Heart: S1 S2. Regular rate and rhythm. Lungs: Diminished bilaterally. Abdomen: Soft, nontender, nondistended with bowel sounds. No peritoneal signs. No palpable organomegaly or masses. Extremities: Normal skin color and turgor. No cyanosis, rash, ulceration, clubbing, or edema. Radial and pedal pulses are 2/4 bilaterally. Brunson clear maddi urine. Neurological: Unable to assess does not follow commands.. Results CBC & Chem 7: 07/31/18 04:55 07/31/18 04:55 Labs: Abnormal Lab Results - Last 24 Hours (Table) 07/30/18 07/31/18 07/31/18 Range/Units 18:41 04:55 04:55 RBC 2.97 L (3.80-5.40) m/uL Hgb 8.6 L (11.4-16.0) gm/dL Hct 26.9 L (34.0-46.0) % RDW 18.6 H (11.5-15.5) % Plt Count 103 L (150-450) k/uL Sodium 135 L (137-145) mmol/L Chloride 93 L (98-107) mmol/L Carbon Dioxide 40 H (22-30) mmol/L BUN 26 H (7-17) mg/dL Glucose 109 H (74-99) mg/dL POC Glucose (mg/dL) 102 H (75-99) mg/dL Calcium 8.2 L (8.4-10.2) mg/dL 07/31/18 Range/Units 12:07 RBC (3.80-5.40) m/uL Hgb (11.4-16.0) gm/dL Hct (34.0-46.0) % RDW (11.5-15.5) % Plt Count (150-450) k/uL Sodium (137-145) mmol/L Chloride (98-107) mmol/L Carbon Dioxide (22-30) mmol/L BUN (7-17) mg/dL Glucose (74-99) mg/dL POC Glucose (mg/dL) 120 H (75-99) mg/dL Calcium (8.4-10.2) mg/dL Microbiology - Last 24 Hours (Table) 07/24/18 15:37 Blood Culture - Final Blood No Growth after 144 hours Assessment and Plan (1) Dysphagia Narrative/Plan: 78-year-old female developmental delay schizoaffective disorder admitted with acute sepsis acute respiratory failure pneumonia dysphagia and lethargy unable to swallow and meet her nutritional needs. Current Visit: Yes Status: Acute Code(s): R13.10 - DYSPHAGIA, UNSPECIFIED SNOMED Code(s): 98691549 (2) Septic shock Current Visit: Yes Status: Acute Code(s): A41.9 - SEPSIS, UNSPECIFIED ORGANISM; R65.21 - SEVERE SEPSIS WITH SEPTIC SHOCK SNOMED Code(s): 17247734 (3) Acute and chronic respiratory failure with hypoxia Current Visit: No Status: Acute Code(s): J96.21 - ACUTE AND CHRONIC RESPIRATORY FAILURE WITH HYPOXIA SNOMED Code(s): 61409499 (4) Pneumonia Current Visit: No Status: Acute Code(s): J18.9 - PNEUMONIA, UNSPECIFIED ORGANISM SNOMED Code(s): 837251527 Plan: 1. Hold tube feeds at midnight. PEG tube insertion tomorrow. Continue GI prophylaxis. Continue present medical therapy. Obtain consent from guardian. Thank you for this kind referral and the opportunity to participate in the care of your patient. This consultation was discussed with Dr. Booth. The impression and plan of care have been directed as dictated.
--- NOTE | 2018-07-31 15:54 | P.PN ---
Subjective Progress Note Date: 07/31/18 78-year-old female who has been seen Dr. Means lately who was in the hospital not too long ago with sepsis and altered mental status and sepsis seems like she had urinary tract infection from cystitis with positive blood culture for staph infection. Patient had an episode of acute hypoxic respiratory failure was on BiPAP at the time and have acute lactic acidosis with severe hypokalemia and acute kidney injury also had pancytopenia due to sepsis is known to have development delay and history of schizoaffective disorders. Patient left the hospital on June 29. Patient found by the caregiver to have significant alter mental status with decline in mobility and her respond. Not been able to transfer herself patient brought to the emergency department [place] via EMS was seen and evaluated she was hypothermic, hypoxic, having significant shortness of breath mildly elevated troponin and blood pressure declined significantly with significant elevated lactic acid. Patient was intubated and admitted to the intensive care unit afterward for the above problem. 07/25/2018: Patient is more stable hemodynamically, blood pressure is much better controlled, still on vasopressor, still intubated on mechanical ventilation but temperature has improved and her vitals are much better respond to the current dose of IV antibiotic between Vanco and Zosyn. The caregiver was informed that if patient had problem with aspiration and possibility of dysphagia might require PEG tube something will be communicating with the legal guardian for possibility after she is extubated. 07/26: Patient remains intubated and on mechanical ventilation with tidal volume 400, FiO2 35 and PEEP of 5. She has been off levo fed since 745 last evening. She is status post Dulcolax suppository, lactulose and soapsuds enema was given this morning. She has had 3 bowel movements and was disimpacted yesterday. Abdominal x-ray this morning reveals ET tube may need to be pulled back slightly. Patchy infiltrate throughout the right lung persist. Small bilateral pleural effusions and additional left basilar atelectasis and/or consolidation. Suspect background of COPD. Nonobstructive bowel gas pattern. No free air. Continued moderate to large stool burden suggesting constipation. Patient has been seen by Dr. Wei for antibiotic recommendations and patient continues on vancomycin and Zosyn. Multiple decubitus ulcers have been addressed by Dr. Wei. Temperature has improved and is running normal at this point. Heart rate in the 60s and 70s, blood pressure 110/52. White count 9.4, hemoglobin 7.2, platelet count is 63. Dr. Wei's change Zosyn to ceftriaxone. Sputum cultures positive for Klebsiella, pansensitive. Blood culture showing no growth. 07/27: Patient was extubated yesterday afternoon. She remains off vasopressors. She did have a lot of liquid stools last evening. Urine output is at 70 mL per hour. She is currently not on sedation and not responsive. Anticipate that to feedings will be started today as NG tube remains in place. She is currently on Ventimask at FiO2 of 55 pulse oxing 95%. Temperature remains on the lower side at 96.5, heart rates in the 80s and 90s, respirations in the 20s , blood pressure 120/60. White count is normalized, hemoglobin 7.8 and platelet count 78. Potassium is 3.0 and replaced. Repeat chest x-ray shows worsening right upper lobe infiltrate can be compatible with pneumonia. Small bilateral pleural effusions. She is currently on IV antibiotics with ceftriaxone and vancomycin. Caregiver is at the bedside and has been updated. 07/28: Patient was on a Ventimask in the evening where she began to show some fatigue. Patient was transitioned to a BiPAP which she is tolerating at this time. Patient has not had any more stools since yesterday. Urine output is 70 ML's per hour. Patient is arousable to deep pain. Patient does not follow commands withdrawal from pain but does not open eyes. Telemetry shows normal sinus rhythm. WBC 5.4, hemoglobin 6.9, platelets 58, sodium 137, potassium 3.9 , BUN 7 creatinine 0.63, magnesium 1.9. 07/29: Patient is currently on a Ventimask. Family and caregiver state that the patient has been more alert and able to open eyes with verbal stimuli and attempting to converse. Upon examination patient is unresponsive to verbal stimuli not opening eyes to painful stimuli. Patient remained afebrile. She is tolerating feedings with no residual. Telemetry shows normal sinus rhythm. Urine and blood cultures are negative. Sputum is showing Klebsiella pneumoniae. 07/30: Patient is tolerating tube feedings. She remains mostly unresponsive but he reacts occasionally to painful stimuli. She is continued on Rocephin and vancomycin. She has been afebrile, currently O2 saturation 95% on 2 L nasal cannula, blood pressure 122/53, heart rate running in the 70s and 80s. White count is normal, hemoglobin 8.9, platelet count 85. CO2 39, creatinine 0.72. Capillary blood glucose running between 108 and 112. Repeat chest x-ray shows improving right perihilar infiltrate. Small bilateral pleural effusions. Caregiver is at the bedside and states that the patient was awake and talking for about an hour this morning. Patient is currently unresponsive. 07/31: Patient is slightly more awake today. She is currently on Rocephin and vancomycin. She is also continued on IV Lasix 40 mg every 12 hours. Urine output has been adequate. Met with public guardian and she will obtain DO NOT RESUSCITATE orders from Court. Consent has been given for PEG tube insertion and GI consultation has been added. Hemoglobin is 8.6, CO2 40, sodium 135, potassium 3.9, chloride 93, creatinine 0.76. Capillary blood glucose running between 99 and 120. Review of systems: Unable to be obtain from patient Objective - Vital Signs Vital signs: Vital Signs Temp 97.9 F 07/31/18 08:00 Pulse 89 07/31/18 11:15 Resp 24 07/31/18 10:00 BP 123/56 07/31/18 10:00 Pulse Ox 94 L 07/31/18 10:00 Intake & Output 07/30/18 07/31/18 07/31/18 18:59 06:59 18:59 Intake Total 1420 915 400 Output Total 1502 1510 500 Balance -82 -595 -100 Weight 64.2 kg 64.2 kg Intake: IV 410 360 120 .9 kvo 230 240 80 Dextrose 5%-0.9% NaCl 1, 130 120 40 000 ml @ 10 mls/hr IV . Q24H DEANNA Rx#:[id number] cefTRIAXone 2 gm In 50 Sodium Chloride 0.9% 50 ml @ 100 mls/hr IVPB Q24HR DEANNA Rx#:[id number] Oral 40 Tube Feeding 880 495 220 Other 90 60 60 Output: Urine 1500 1510 500 Stool 2 Other: Voiding Method Indwelling Catheter Indwelling Catheter Indwelling Catheter - Exam General Appearance: Patient is responsive to verbal stimuli. Caregiver at bedside Neck HEENT: Supple, no lymphadenopathy, no thyroid enlargement, no carotid bruits. Lungs: Decreased breaths in bilaterally specially the right side with fine rhonchi positive crackles and wheezes bilaterally. Chest Wall: Decreased expansion with deep inspiration no soreness no rash no deformity. Heart: Regular rate and rhythm, S1, S2 normal, no murmur, rub or gallop. Positive tachycardia Back: Symmetric, no curvature, ROM normal, no CVA tenderness. Abdomen: Soft, non-tender, bowel sounds active all four quadrants, no masses, no organomegaly. Fecal bulk seems to be resolved. Extremities: Extremities normal, atraumatic, no cyanosis or edema. Pulses: 2+ and symmetric. Skin: Skin color, texture, tugor normal, no rashes or lesions. Neurologic: response to verbal stimuli. - Labs CBC & Chem 7: 07/31/18 04:55 07/31/18 04:55 Labs: Abnormal Lab Results - Last 24 Hours (Table) 07/30/18 07/31/18 07/31/18 Range/Units 18:41 04:55 04:55 RBC 2.97 L (3.80-5.40) m/uL Hgb 8.6 L (11.4-16.0) gm/dL Hct 26.9 L (34.0-46.0) % RDW 18.6 H (11.5-15.5) % Plt Count 103 L (150-450) k/uL Sodium 135 L (137-145) mmol/L Chloride 93 L (98-107) mmol/L Carbon Dioxide 40 H (22-30) mmol/L BUN 26 H (7-17) mg/dL Glucose 109 H (74-99) mg/dL POC Glucose (mg/dL) 102 H (75-99) mg/dL Calcium 8.2 L (8.4-10.2) mg/dL 07/31/18 Range/Units 12:07 RBC (3.80-5.40) m/uL Hgb (11.4-16.0) gm/dL Hct (34.0-46.0) % RDW (11.5-15.5) % Plt Count (150-450) k/uL Sodium (137-145) mmol/L Chloride (98-107) mmol/L Carbon Dioxide (22-30) mmol/L BUN (7-17) mg/dL Glucose (74-99) mg/dL POC Glucose (mg/dL) 120 H (75-99) mg/dL Calcium (8.4-10.2) mg/dL Microbiology - Last 24 Hours (Table) 07/24/18 15:37 Blood Culture - Final Blood No Growth after 144 hours Assessment and Plan Plan: 1 acute hypoxic respiratory failure secondary to aspiration pneumonia with severe sepsis, septic shock. Patient has been extubated. Consult with Dr. Vijaya ambrosio. 2 sepsis with septic shock from Klebsiella aspiration pneumonia, UTI and recent sepsis with staph infection previously. Antibiotics changed to ceftriaxone and vancomycin. 3 severe right-sided pneumonia: Possibly gram-negative versus aspiration, patient was started on vancomycin and rocephin. 4 dysphagia: Speech therapy to evaluate on Monday and if needed might need PEG tube. 5 severe lactic acidosis: Continue sepsis protocol repeat lactic acid and CBC. 6 hypothyroidism: Switch patient to IV thyroid medication have to does normally till she is able to take her oral intake. 7 hyperlipidemia: We'll hold her atorvastatin for now. 8 schizoaffective disorders has been on Risperdal, Cogentin and Depakote. 9 COPD: Patient has been on Pulmicort and Ventolin. 10 iron deficiency anemia. 11 DVT prophylaxis: Will continue patient on heparin subcutaneous. 12 GI prophylaxis: Patient will be on pantoprazole IV. 13. Fecal impaction contributing to aspiration. 14. Thrombocytopenia possibly related to Zosyn or from sepsis. Zosyn changed to ceftriaxone 15. Metabolic encephalopathy, possible anoxic encephalopathy. 16. Severe protein calorie malnutrition due to lack of oral intake for extended period requiring tube feedings. GI consult for PEG tube insertion. Prognosis guarded Discharge plan: Subacute rehab Impression and plan of care have been directed as dictated by the signing physician. Dominique Carpio nurse practitioner acting as scribe for signing physician.
[2018-07-31 18:30] LABS: Glucose,Whole Blood 116 mg/dL (75-99)
--- NOTE | 2018-07-31 19:48 | P.PN ---
Subjective Progress Note Date: 07/31/18 This is a 78-year-old female who was recently admitted June 17 through June 29 of which time she was treated for acute hypoxic respiratory failure with bilateral pulmonary infiltrates/aspiration pneumonia, lactic acidosis, hypothermia. Patient has underlying history of developmentally delay and has a public guardian. She was discharged home where she has 24-hour supervision and home care. She was discharged with Augmentin for another 5 days. Yesterday, patient was brought back into [facility] emergency center by EMS for altered mental status that are going on for the past few days with worsening mental status and productive cough with increasing weakness. She was found to have a rectal temperature of 89.9 and became severely hypotensive. In the emergency center, she was intubated, left IJ placed. White count 31, hemoglobin 9.6, platelet count 167, creatinine 0.7. Troponin was negative, TSH 1.6, lactic acid 4. Influenza testing negative. Urinalysis and urine drug screen negative. Chest x-ray shows new development of right-sided multifocal bronchopneumonia. Brain CT showed no definite acute process. 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 Patient is status post multiple units of saline fluid bolus and has been started on norepinephrine. Patient has been started on vancomycin and Zosyn. Repeat chest x-ray this morning reveals patchy infiltrate in the right lung compatible with pneumonia worsening from yesterday. Abdominal x-ray reveals moderate fecal retention correlate for constipation. Dislocation and erosion of the right hip region. Patient also presented with a stage III pressure ulcer to the left heel , stage II rash or ulcer to the buttock and stage II to the upper back. 07/26/2018 the patient is still on the ventilator but tolerating CPAP trial but still poor mentation patient though is slightly arousable partially open his eyes. Follows no commands. Moves right arm spontaneously. 07/27/2017 patient is off the ventilator and is currently on BiPAP. Continues to struggle with her pulmonary status. She is not arousable at this point in time. She however is not on vasopressor therapy. 07/31/2018 patient remains extubated really not following any commands. However with stimulation she did open eyes and open her mouth. One of the caregivers present and when questioned relates the patient will be going home to their care. Objective - Vital Signs Vital signs: Vital Signs Temp 99 F 07/31/18 16:00 Pulse 86 02/26/19 19:22 Resp 26 H 07/31/18 19:00 BP 117/51 07/31/18 19:00 Pulse Ox 95 07/31/18 19:00 Intake & Output 07/31/18 07/31/18 08/01/18 06:59 18:59 06:59 Intake Total 915 1140 85 Output Total 1510 1452 45 Balance -595 -312 40 Weight 64.2 kg Intake: IV 360 360 30 .9 kvo 240 240 20 Dextrose 5%-0.9% NaCl 1, 120 120 10 000 ml @ 10 mls/hr IV . Q24H DEANNA Rx#:[id number] Tube Feeding 495 660 55 Other 60 120 Output: Urine 1510 1452 45 Other: Voiding Method Indwelling Catheter Indwelling Catheter - Exam Gen: This is a 78-year-old female. She is in the ICU bed, currently just on nasal cannula oxygen HEENT: Head is atraumatic, normocephalic. Pupils equal, round. Sclerae is anicteric. The epistaxis is under control NECK: Supple. No JVD. No lymphadenopathy. No thyromegaly. LUNGS: Decreased on the right side with rhonchi. No intercostal retractions. HEART: Regular rate and rhythm. No murmur. ABDOMEN: Soft. Bowel sounds are present. No tenderness. EXTREMITIES: No pedal edema. No calf tenderness. Dorsalis pedis +2 bilaterally. SKIN: stage III pressure ulcer to the left heel, stage II rash or ulcer to the buttock and stage II to the upper back. NEUROLOGICAL: With the improve respiratory status only has oxygen in place. Opened eyes to stimulation and at one time open her mouth also. - Labs CBC & Chem 7: 07/31/18 04:55 07/31/18 04:55 Labs: Abnormal Lab Results - Last 24 Hours (Table) 07/31/18 07/31/18 07/31/18 Range/Units 04:55 04:55 12:07 RBC 2.97 L (3.80-5.40) m/uL Hgb 8.6 L (11.4-16.0) gm/dL Hct 26.9 L (34.0-46.0) % RDW 18.6 H (11.5-15.5) % Plt Count 103 L (150-450) k/uL Sodium 135 L (137-145) mmol/L Chloride 93 L (98-107) mmol/L Carbon Dioxide 40 H (22-30) mmol/L BUN 26 H (7-17) mg/dL Glucose 109 H (74-99) mg/dL POC Glucose (mg/dL) 120 H (75-99) mg/dL Calcium 8.2 L (8.4-10.2) mg/dL 07/31/18 Range/Units 18:19 RBC (3.80-5.40) m/uL Hgb (11.4-16.0) gm/dL Hct (34.0-46.0) % RDW (11.5-15.5) % Plt Count (150-450) k/uL Sodium (137-145) mmol/L Chloride (98-107) mmol/L Carbon Dioxide (22-30) mmol/L BUN (7-17) mg/dL Glucose (74-99) mg/dL POC Glucose (mg/dL) 116 H (75-99) mg/dL Calcium (8.4-10.2) mg/dL Microbiology - Last 24 Hours (Table) 07/24/18 15:37 Blood Culture - Final Blood No Growth after 144 hours Laboratory Results WBC 7.0 k/uL (3.8-10.6) 07/31/18 04:55 RBC 2.97 m/uL (3.80-5.40) L 07/31/18 04:55 Hgb 8.6 gm/dL (11.4-16.0) L 07/31/18 04:55 Hct 26.9 % (34.0-46.0) L 07/31/18 04:55 MCV 90.6 fL (80.0-100.0) 07/31/18 04:55 MCH 28.9 pg (25.0-35.0) 07/31/18 04:55 MCHC 31.9 g/dL (31.0-37.0) 07/31/18 04:55 RDW 18.6 % (11.5-15.5) H 07/31/18 04:55 Plt Count 103 k/uL (150-450) L 07/31/18 04:55 Neutrophils % 72 % 07/31/18 04:55 Neutrophils % (Manual) 63 % 07/24/18 15:37 Band Neutrophils % 24 % 07/24/18 15:37 Lymphocytes % 17 % 07/31/18 04:55 Lymphocytes % (Manual) 6 % 07/24/18 15:37 Monocytes % 7 % 07/31/18 04:55 Monocytes % (Manual) 2 % 07/24/18 15:37 Eosinophils % 3 % 07/31/18 04:55 Basophils % 0 % 07/31/18 04:55 Metamyelocytes % 3 % 07/24/18 15:37 Myelocytes % 3 % 07/24/18 15:37 Neutrophils # 5.0 k/uL (1.3-7.7) 07/31/18 04:55 Neutrophils # (Manual) 26.90 k/uL (1.3-7.7) H 07/24/18 15:37 Lymphocytes # 1.2 k/uL (1.0-4.8) 07/31/18 04:55 Lymphocytes # (Manual) 1.86 k/uL (1.0-4.8) 07/24/18 15:37 Monocytes # 0.5 k/uL (0-1.0) 07/31/18 04:55 Monocytes # (Manual) 0.62 k/uL (0-1.0) 07/24/18 15:37 Eosinophils # 0.2 k/uL (0-0.7) 07/31/18 04:55 Basophils # 0.0 k/uL (0-0.2) 07/31/18 04:55 Metamyelocytes # (Man) 0.93 k/uL (0) H 07/24/18 15:37 Myelocytes # (Manual) 0.93 k/uL (0) H 07/24/18 15:37 Nucleated RBCs 0 /100 WBC (0-0) 07/24/18 15:37 Manual Slide Review Performed 07/26/18 04:45 Toxic Granulation Present 07/24/18 15:37 Toxic Vacuolation Present 07/24/18 15:37 Large Platelets Present 07/24/18 15:37 Polychromasia Present 07/24/18 15:37 Hypochromasia Slight 07/31/18 04:55 Poikilocytosis (manual Present 07/24/18 15:37 Anisocytosis Slight 07/31/18 04:55 Macrocytosis Slight 07/26/18 04:45 PT 10.0 sec (9.0-12.0) 07/24/18 15:37 INR 0.9 (<1.2) 07/24/18 15:37 APTT 26.6 sec (22.0-30.0) 07/24/18 15:37 Sample Site Left Radial 07/26/18 11:53 ABG pH 7.39 (7.35-7.45) 07/26/18 11:53 ABG pCO2 39 mmHg (35-45) 07/26/18 11:53 ABG pO2 57 mmHg (83-108) L* 07/26/18 11:53 ABG HCO3 24 mmol/L (21-25) 07/26/18 11:53 ABG Total CO2 25 mmol/L (19-24) H 07/26/18 11:53 ABG O2 Saturation 89.0 % (94-97) L 07/26/18 11:53 ABG Base Excess -1.3 mmol/L 07/26/18 11:53 Ramez Test Yes 07/26/18 11:53 FiO2 35 % 07/26/18 11:53 Sodium 135 mmol/L (137-145) L 07/31/18 04:55 Potassium 3.9 mmol/L (3.5-5.1) 07/31/18 04:55 Chloride 93 mmol/L (98-107) L 07/31/18 04:55 Carbon Dioxide 40 mmol/L (22-30) H 07/31/18 04:55 Anion Gap 2 mmol/L 07/31/18 04:55 BUN 26 mg/dL (7-17) H 07/31/18 04:55 Creatinine 0.70 mg/dL (0.52-1.04) 07/31/18 04:55 Est GFR (CKD-EPI)AfAm >90 (>60 ml/min/1.73 sqM) 07/31/18 04:55 Est GFR (CKD-EPI)NonAf 84 (>60 ml/min/1.73 sqM) 07/31/18 04:55 Glucose 109 mg/dL (74-99) H 07/31/18 04:55 POC Glucose (mg/dL) 116 mg/dL (75-99) H 07/31/18 18:19 POC Glu Service Dispatcher ID Lien Pimentel 07/31/18 18:19 Lactic Ac Sepsis Rflx Y 07/24/18 16:23 Plasma Lactic Acid Jason 1.2 mmol/L (0.7-2.0) 07/24/18 19:54 Calcium 8.2 mg/dL (8.4-10.2) L 07/31/18 04:55 Phosphorus 4.1 mg/dL (2.5-4.5) 07/29/18 04:32 Magnesium 1.8 mg/dL (1.6-2.3) 07/31/18 04:55 Total Bilirubin 0.5 mg/dL (0.2-1.3) 07/24/18 15:37 AST 62 U/L (14-36) H 07/24/18 15:37 ALT 50 U/L (9-52) 07/24/18 15:37 Alkaline Phosphatase 138 U/L (38-126) H 07/24/18 15:37 Ammonia <9 umol/L (<30) 07/24/18 16:35 Total Creatine Kinase 376 U/L (30-135) H 07/24/18 15:37 CK-MB (CK-2) 9.3 ng/mL (0.0-2.4) H 07/24/18 15:37 CK-MB (CK-2) Rel Index 2.5 07/24/18 15:37 Troponin I <0.012 ng/mL (0.000-0.034) 07/24/18 15:37 Total Protein 5.8 g/dL (6.3-8.2) L 07/24/18 15:37 Albumin 2.8 g/dL (3.5-5.0) L 07/24/18 15:37 Lipase 28 U/L (23-300) 07/24/18 15:37 Procalcitonin 1.37 ng/mL (0.02-0.09) H 07/24/18 15:37 TSH 1.600 mIU/L (0.465-4.680) 07/24/18 15:37 Urine Color Yellow 07/24/18 16:43 Urine Appearance Clear (Clear) 07/24/18 16:43 Urine pH 5.5 (5.0-8.0) 07/24/18 16:43 Ur Specific [place] 1.010 (1.001-1.035) 07/24/18 16:43 Urine Protein Negative (Negative) 07/24/18 16:43 Urine Glucose (UA) Negative (Negative) 07/24/18 16:43 Urine Ketones Negative (Negative) 07/24/18 16:43 Urine Blood Negative (Negative) 07/24/18 16:43 Urine Nitrite Negative (Negative) 07/24/18 16:43 Urine Bilirubin Negative (Negative) 07/24/18 16:43 Urine Urobilinogen <2.0 mg/dL (<2.0) 07/24/18 16:43 Ur Leukocyte Esterase Negative (Negative) 07/24/18 16:43 Vancomycin Trough 17.8 ug/mL 07/31/18 06:50 Urine Opiates Screen Not Detected (NotDetected) 07/24/18 16:43 Ur Oxycodone Screen Not Detected (NotDetected) 07/24/18 16:43 Urine Methadone Screen Not Detected (NotDetected) 07/24/18 16:43 Ur Propoxyphene Screen Not Detected (NotDetected) 07/24/18 16:43 Ur Barbiturates Screen Not Detected (NotDetected) 07/24/18 16:43 Valproic Acid 25.5 ug/mL 07/27/18 18:00 U Tricyclic Antidepress Not Detected (NotDetected) 07/24/18 16:43 Ur Phencyclidine Scrn Not Detected (NotDetected) 07/24/18 16:43 Ur Amphetamines Screen Not Detected (NotDetected) 07/24/18 16:43 U Methamphetamines Scrn Not Detected (NotDetected) 07/24/18 16:43 U Benzodiazepines Scrn Not Detected (NotDetected) 07/24/18 16:43 Urine Cocaine Screen Not Detected (NotDetected) 07/24/18 16:43 U Marijuana (THC) Screen Not Detected (NotDetected) 07/24/18 16:43 Influenza Type A RNA Not Detected (Not Detectd) 07/24/18 15:37 Influenza Type B (PCR) Not Detected (Not Detectd) 07/24/18 15:37 Blood Type AB Positive 07/28/18 12:14 Blood Type Recheck No 07/28/18 12:14 Antibody Screen NEGATIVE 07/28/18 12:14 Crossmatch See Detail 07/28/18 12:14 Spec Expiration Date 07/31/2018 - 2314 07/28/18 12:14 Microbiology 07/24/18 15:37 Blood Blood Culture - Final No Growth after 144 hours 07/24/18 20:08 Sputum Gram Stain - Final 07/24/18 20:08 Sputum Sputum Culture - Final Klebsiella pneumoniae 07/24/18 16:43 Urine,Catheterized Urine Culture - Final Assessment and Plan (1) Acute UTI Current Visit: No Status: Acute Code(s): N39.0 - URINARY TRACT INFECTION, SITE NOT SPECIFIED SNOMED Code(s): 077749773 (2) Pneumonia Narrative/Plan: As noted patient is intubated today mechanically ventilated and the low dose of vasopressor at this time. There is concerned it could've been aspiration and consequently treatment for this is penalized with vancomycin and Zosyn given that she is coming from a care facility. The pressure ulcerations are being treated with the optifoam dressings and offloading. Cultures are process. It may further help direct antimicrobial therapy. She is on 35% FiO2 and PEEP of 5 and hopefully will rapidly improved. The significant hypothermia has also resolved with resuscitation and warming. July 26 2018 patient is had some improvement of her pulmonary status is now on a CPAP trial as you tolerating relatively well. However still has somewhat poor mentation. She seems quite comfortable and has some spontaneous movements. Is evidence of the Serratia infection with pneumonia responding well to current antimicrobial therapy of Rocephin. Wounds are being treated with optifoam dressings. She is also on a specialty bed. The case is discussed with her primary caregiver and hopefully she will get an air mattress overlay for her hospital bed at home to help her with her current pressure ulcerations. Antibiotic therapy is altered today from Zosyn to Rocephin and that the susceptibility is available for the Serratia and there is concern dropped her platelets which is likely from Zosyn. 07/27/2018 the patient is extubated but is now on significant support with BiPAP. Concern is that she'll develop further respiratory failure. Unclear if reintubation will be occurring given her significant multiple comorbidities and progressive decline in status. Continue treatment for underlying pneumonia. Platelet count at 56,000 today. The piperacillin tazobactam as been discontinued as well as heparin. Continue to monitor for improvement underlying sepsis Gubin of the driving factor for the thrombocytopenia. Prognosis is poor. 07/31/2018 patient remains extubated and just on nasal cannula oxygen. She apparently will have her PEG tube placed in the next short period of time. Her prognosis remains poor with her very poor mental status. Discussion with social work reveals that the guardian will have the patient placed an ECF at discharge. Current Visit: No Status: Acute Code(s): J18.9 - PNEUMONIA, UNSPECIFIED ORGANISM SNOMED Code(s): 770138773
[2018-07-31 23:50] LABS: Glucose,Whole Blood 113 mg/dL (75-99)
[2018-08-01] MEDS: DEXTROSE 5%-0.9% NACL 1,000 ML IV SCH ×2 (02:21→21:28)
[2018-08-01] MEDS: NOREPINEPHRINE 32 MG in SODIUM CHLORIDE 0.9% 218 ML IV SCH (04:21)
[2018-08-01 04:27] LABS: Anisocytosis Slight; Basophils % (A) 0 %; Eosinophils # (A) 0.2 k/uL (0-0.7); Eosinophils % (A) 3 %; HCT 24.8 % (34.0-46.0); HGB 7.7 gm/dL (11.4-16.0); Hypochromasia Slight; Lymphocytes # (A) 1.4 k/uL (1.0-4.8); Lymphocytes % (A) 21 %; MCH 28.1 pg (25.0-35.0); MCV 90.7 fL (80.0-100.0); Mean Platelet Volume 7.6; Monocytes # (A) 0.5 k/uL (0-1.0); Monocytes % (A) 8 %; Neutrophils # (A) 4.3 k/uL (1.3-7.7); Neutrophils % (A) 66 %; Platelet Count 111 k/uL (150-450); RBC 2.73 m/uL (3.80-5.40); RDW 18.4 % (11.5-15.5); WBC 6.5 k/uL (3.8-10.6)
[2018-08-01 04:38] LABS: Anion Gap 2 mmol/L; Blood Urea Nitrogen 27 mg/dL (7-17); Calcium 7.6 mg/dL (8.4-10.2); Carbon Dioxide 37 mmol/L (22-30); Chloride 98 mmol/L (98-107); Glucose 310 mg/dL (74-99); Magnesium 1.9 mg/dL (1.6-2.3); Potassium 3.7 mmol/L (3.5-5.1); Sodium 137 mmol/L (137-145)
[2018-08-01] MEDS ORDERED: Potassium Replacement Protocol 1 EACH MISC MISCELLANE PRN (05:00)
[2018-08-01] MEDS ORDERED: POTASSIUM BICARBONATE/CIT AC 20 MEQ TABLET.EFF NG-TUBE SCH (05:00)
[2018-08-01] MEDS ORDERED: Magnesium Replacement Protocol 1 EACH MISC MISCELLANE PRN (05:01)
[2018-08-01 05:44] LABS: Glucose,Whole Blood 106 mg/dL (75-99)
[2018-08-01] MEDS: MAGNESIUM SULFATE-D5W PMX 1 GM in DEXTROSE/WATER 1 100ML.BAG IVPB SCH ×2 (05:44→08:54)
[2018-08-01] MEDS: LEVOTHYROXINE 125 MCG TAB PO SCH (06:04)
[2018-08-01] MEDS: BUDESONIDE 0.25 MG/2 ML NEBU INHALATION SCH ×2 (07:29→19:34)
[2018-08-01] MEDS: ALBUTEROL NEBULIZED 2.5 MG/3 ML INHALATION SCH ×4 (07:29→19:34)
[2018-08-01] MEDS: ASPIRIN 81 MG PO SCH (08:55)
[2018-08-01] MEDS: ATORVASTATIN 10 MG TAB PO SCH (08:55)
[2018-08-01] MEDS: LACTULOSE 20 GM/30 ML CUP PO SCH (08:59)
[2018-08-01] MEDS: BENZTROPINE MESYLATE 0.5 MG TAB PO SCH ×2 (08:59→21:34)
[2018-08-01] MEDS: FERROUS SULFATE ORAL ELIXIR 300 MG/5 ML CUP PO SCH ×2 (08:59→21:33)
[2018-08-01] MEDS: FUROSEMIDE 10 MG/ML 4 ML VIAL IV SCH ×2 (08:59→21:33)
[2018-08-01] MEDS: risperiDONE 1 MG TAB PO SCH ×2 (09:00→21:33)
[2018-08-01] MEDS: VALPROIC ACID ORAL SOLN 250 MG/5 ML CUP NG-TUBE SCH ×2 (09:00→21:29)
[2018-08-01] MEDS: PANTOPRAZOLE 40 MG/10 ML VIAL IV SCH (09:00)
[2018-08-01 11:45] LABS: Glucose,Whole Blood 106 mg/dL (75-99)
[2018-08-01] MEDS ORDERED: PROPOFOL 10 MG/ML 20 ML VIAL IV ONE (12:56)
[2018-08-01] MEDS ORDERED: fentaNYL (PF) 50 MCG/ML 2 ML AMP ONE (12:56)
[2018-08-01] MEDS ORDERED: MIDAZOLAM 2 MG/2 ML VIAL ONE (12:56)
[2018-08-01] MEDS ORDERED: IV FLUID CONTINUATION 500 ML IV ONE (13:09)
--- NOTE | 2018-08-01 13:22 | P.PN ---
Subjective Progress Note Date: 08/01/18 78-year-old female who has been seen Dr. Means lately who was in the hospital not too long ago with sepsis and altered mental status and sepsis seems like she had urinary tract infection from cystitis with positive blood culture for staph infection. Patient had an episode of acute hypoxic respiratory failure was on BiPAP at the time and have acute lactic acidosis with severe hypokalemia and acute kidney injury also had pancytopenia due to sepsis is known to have development delay and history of schizoaffective disorders. Patient left the hospital on June 29. Patient found by the caregiver to have significant alter mental status with decline in mobility and her respond. Not been able to transfer herself patient brought to the emergency department [place] via EMS was seen and evaluated she was hypothermic, hypoxic, having significant shortness of breath mildly elevated troponin and blood pressure declined significantly with significant elevated lactic acid. Patient was intubated and admitted to the intensive care unit afterward for the above problem. 07/25/2018: Patient is more stable hemodynamically, blood pressure is much better controlled, still on vasopressor, still intubated on mechanical ventilation but temperature has improved and her vitals are much better respond to the current dose of IV antibiotic between Vanco and Zosyn. The caregiver was informed that if patient had problem with aspiration and possibility of dysphagia might require PEG tube something will be communicating with the legal guardian for possibility after she is extubated. 07/26: Patient remains intubated and on mechanical ventilation with tidal volume 400, FiO2 35 and PEEP of 5. She has been off levo fed since 745 last evening. She is status post Dulcolax suppository, lactulose and soapsuds enema was given this morning. She has had 3 bowel movements and was disimpacted yesterday. Abdominal x-ray this morning reveals ET tube may need to be pulled back slightly. Patchy infiltrate throughout the right lung persist. Small bilateral pleural effusions and additional left basilar atelectasis and/or consolidation. Suspect background of COPD. Nonobstructive bowel gas pattern. No free air. Continued moderate to large stool burden suggesting constipation. Patient has been seen by Dr. Wei for antibiotic recommendations and patient continues on vancomycin and Zosyn. Multiple decubitus ulcers have been addressed by Dr. Wei. Temperature has improved and is running normal at this point. Heart rate in the 60s and 70s, blood pressure 110/52. White count 9.4, hemoglobin 7.2, platelet count is 63. Dr. Wei's change Zosyn to ceftriaxone. Sputum cultures positive for Klebsiella, pansensitive. Blood culture showing no growth. 07/27: Patient was extubated yesterday afternoon. She remains off vasopressors. She did have a lot of liquid stools last evening. Urine output is at 70 mL per hour. She is currently not on sedation and not responsive. Anticipate that to feedings will be started today as NG tube remains in place. She is currently on Ventimask at FiO2 of 55 pulse oxing 95%. Temperature remains on the lower side at 96.5, heart rates in the 80s and 90s, respirations in the 20s , blood pressure 120/60. White count is normalized, hemoglobin 7.8 and platelet count 78. Potassium is 3.0 and replaced. Repeat chest x-ray shows worsening right upper lobe infiltrate can be compatible with pneumonia. Small bilateral pleural effusions. She is currently on IV antibiotics with ceftriaxone and vancomycin. Caregiver is at the bedside and has been updated. 07/28: Patient was on a Ventimask in the evening where she began to show some fatigue. Patient was transitioned to a BiPAP which she is tolerating at this time. Patient has not had any more stools since yesterday. Urine output is 70 ML's per hour. Patient is arousable to deep pain. Patient does not follow commands withdrawal from pain but does not open eyes. Telemetry shows normal sinus rhythm. WBC 5.4, hemoglobin 6.9, platelets 58, sodium 137, potassium 3.9 , BUN 7 creatinine 0.63, magnesium 1.9. 07/29: Patient is currently on a Ventimask. Family and caregiver state that the patient has been more alert and able to open eyes with verbal stimuli and attempting to converse. Upon examination patient is unresponsive to verbal stimuli not opening eyes to painful stimuli. Patient remained afebrile. She is tolerating feedings with no residual. Telemetry shows normal sinus rhythm. Urine and blood cultures are negative. Sputum is showing Klebsiella pneumoniae. 07/30: Patient is tolerating tube feedings. She remains mostly unresponsive but he reacts occasionally to painful stimuli. She is continued on Rocephin and vancomycin. She has been afebrile, currently O2 saturation 95% on 2 L nasal cannula, blood pressure 122/53, heart rate running in the 70s and 80s. White count is normal, hemoglobin 8.9, platelet count 85. CO2 39, creatinine 0.72. Capillary blood glucose running between 108 and 112. Repeat chest x-ray shows improving right perihilar infiltrate. Small bilateral pleural effusions. Caregiver is at the bedside and states that the patient was awake and talking for about an hour this morning. Patient is currently unresponsive. 07/31: Patient is slightly more awake today. She is currently on Rocephin and vancomycin. She is also continued on IV Lasix 40 mg every 12 hours. Urine output has been adequate. Met with public guardian and she will obtain DO NOT RESUSCITATE orders from Court. Consent has been given for PEG tube insertion and GI consultation has been added. Hemoglobin is 8.6, CO2 40, sodium 135, potassium 3.9, chloride 93, creatinine 0.76. Capillary blood glucose running between 99 and 120. 08/01: Patient remains in the intensive care unit. Patient is awake this morning and able to answer questions. She is scheduled for PEG tube placement today. Discharge plan has changed to returning home which we anticipate will happen on Monday. She has complete her course of Rocephin. She is on vancomycin pharmacy is dosing. Patient has been afebrile, blood pressure 120/66 , pulse ox 95 200% on 2 L nasal cannula, heart rate running in the 70s. White count is normal, hemoglobin 7.7, platelet count 111. Capillary blood glucose between 106 and 116, creatinine 0.65. Objective - Vital Signs Vital signs: Vital Signs Temp 97.1 F L 08/01/18 08:00 Pulse 73 08/01/18 09:00 Resp 20 08/01/18 09:00 BP 101/61 08/01/18 09:00 Pulse Ox 94 L 08/01/18 09:00 Intake & Output 07/31/18 08/01/18 08/01/18 18:59 06:59 18:59 Intake Total 1140 665 60 Output Total 1452 1095 145 Balance -312 -430 -85 Weight 59.3 kg Intake: IV 360 390 60 .9 kvo 240 260 40 Dextrose 5%-0.9% NaCl 1, 120 130 20 000 ml @ 10 mls/hr IV . Q24H REPLACED BY [facility] Rx#:[id number] Tube Feeding 660 275 0 Other 120 Output: Urine 1452 1095 145 Other: Voiding Method Indwelling Catheter Indwelling Catheter Indwelling Catheter - Exam General Appearance: Patient is responsive to verbal stimuli. Caregiver at bedside Neck HEENT: Supple, no lymphadenopathy, no thyroid enlargement, no carotid bruits. Lungs: Decreased breaths in bilaterally specially the right side with fine rhonchi positive crackles and wheezes bilaterally. Chest Wall: Decreased expansion with deep inspiration no soreness no rash no deformity. Heart: Regular rate and rhythm, S1, S2 normal, no murmur, rub or gallop. Positive tachycardia Back: Symmetric, no curvature, ROM normal, no CVA tenderness. Abdomen: Soft, non-tender, bowel sounds active all four quadrants, no masses, no organomegaly. Fecal bulk seems to be resolved. Extremities: Extremities normal, atraumatic, no cyanosis or edema. Pulses: 2+ and symmetric. Skin: Skin color, texture, tugor normal, no rashes or lesions. Neurologic: Patient is awake and alert response to verbal stimuli. - Labs CBC & Chem 7: 08/01/18 04:10 08/01/18 04:10 Labs: Abnormal Lab Results - Last 24 Hours (Table) 07/31/18 07/31/18 07/31/18 Range/Units 12:07 18:19 23:49 RBC (3.80-5.40) m/uL Hgb (11.4-16.0) gm/dL Hct (34.0-46.0) % RDW (11.5-15.5) % Plt Count (150-450) k/uL Carbon Dioxide (22-30) mmol/L BUN (7-17) mg/dL Glucose (74-99) mg/dL POC Glucose (mg/dL) 120 H 116 H 113 H (75-99) mg/dL Calcium (8.4-10.2) mg/dL 08/01/18 08/01/18 08/01/18 Range/Units 04:10 04:10 05:43 RBC 2.73 L (3.80-5.40) m/uL Hgb 7.7 L (11.4-16.0) gm/dL Hct 24.8 L (34.0-46.0) % RDW 18.4 H (11.5-15.5) % Plt Count 111 L (150-450) k/uL Carbon Dioxide 37 H (22-30) mmol/L BUN 27 H (7-17) mg/dL Glucose 310 H (74-99) mg/dL POC Glucose (mg/dL) 106 H (75-99) mg/dL Calcium 7.6 L (8.4-10.2) mg/dL Assessment and Plan Plan: 1 acute hypoxic respiratory failure secondary to aspiration pneumonia with severe sepsis, septic shock. Patient has been extubated. Consult with Dr. Vijaya ambrosio. 2 sepsis with septic shock from Klebsiella aspiration pneumonia, UTI and recent sepsis with staph infection previously. Antibiotics changed to ceftriaxone and vancomycin. 3 severe right-sided pneumonia: Possibly gram-negative versus aspiration, patient was started on vancomycin and rocephin. 4 dysphagia: Speech therapy to evaluate on Monday and if needed might need PEG tube. 5 severe lactic acidosis: Continue sepsis protocol repeat lactic acid and CBC. 6 hypothyroidism: Switch patient to IV thyroid medication have to does normally till she is able to take her oral intake. 7 hyperlipidemia: We'll hold her atorvastatin for now. 8 schizoaffective disorders has been on Risperdal, Cogentin and Depakote. 9 COPD: Patient has been on Pulmicort and Ventolin. 10 iron deficiency anemia. 11 DVT prophylaxis: Will continue patient on heparin subcutaneous. 12 GI prophylaxis: Patient will be on pantoprazole IV. 13. Fecal impaction contributing to aspiration. 14. Thrombocytopenia possibly related to Zosyn or from sepsis. Zosyn changed to ceftriaxone 15. Metabolic encephalopathy, possible anoxic encephalopathy. 16. Severe protein calorie malnutrition due to lack of oral intake for extended period requiring tube feedings. GI consult for PEG tube insertion. Prognosis guarded Discharge plan: Home on Monday with caregivers and [facility] Impression and plan of care have been directed as dictated by the signing physician. Dominique Carpio nurse practitioner acting as scribe for signing physician.
--- NOTE | 2018-08-01 14:08 | P.PN ---
Subjective Progress Note Date: 08/01/18 This 78-year-old female patient was coming into the hospital because of altered mental status and respiratory failure. The patient was found to be by the caregivers to have difficulties with generalized weakness in her mentation seems to be altered specially over the past 24-48 hours prior to coming to the hospital. She had also difficulties and mobility and she was heart to respond. At that point the caregiver decided to bring this patient back to the hospital for further evaluation. The patient is known to me. I took care of her back in November 2018 for complications of acute hypoxic respiratory failure and acute bilateral aspiration pneumonia. Back then the patient was she is appropriate and the patient recovered and the patient was discharged home. Note that the patient at that time also had a UTI secondary to staphylococcal infection. Patient was brought to the ED for the above-mentioned reasons. Apparently there was a history of productive cough. The patient was found initially to be severely hypothermic. An ultrasound of the heart was done and it showed reduced LV filling pressures secondary to intravascular volume depletion/dehydration. There were 3 evaluation was done and the patient was found to have leukocytosis with a white cell count of 31. Her lactic acid level was at 4.0. Influenza screen was negative. Urinalysis was unremarkable. Chest x-ray showed extensive right lung pulmonary for treated consistent with an underlying pneumonia. The patient was intubated and placed on mechanical ventilator. The troponin catheter was inserted and following that the patient was sent to the ICU. An x-ray of the abdomen was also done that showed extensive moderate to severe fecal impaction within the large bowel. According to the caregiver, the patient was complaining of some abdominal distention big abdominal pain. Currently, the patient is in intensive care unit. The patient is sedated with Diprivan and she is calm and comfortable. She is on a mechanical ventilator and the patient is an assist-control mode rate of 12, tidal volume of 400 with FiO2 of 35% and a PEEP of 5. She is on pressors and she is running on levo fed at 0.03 mics per KG per minute. She is also on propofol running at 5 g per KG per minute. On today's evaluation of 07/26/2018 I'm seeing this patient for a follow-up. The patient was intubated for an extensive right lung pneumonia. The patient remains intubated on a mechanical ventilator. This morning the patient was an FiO2 of 35% with a PEEP of 5 and tidal volume of 400 with rate of 12. Follow- up chest x-ray showed improvement in the right lung pulmonary infiltrate. He was admitted location. The patient was taken off sedation. The patient a decent cough. No symptoms and orotracheal secretions. Based on that, we will give the patient is point is breathing trial with a pressure support of 5 and a PEEP of 5. After 1 hour of spontaneous breathing trial, the patient had a blood. That showed a pH of 7.39 with a pCO2 of 39 and pO2 of 57. Based on that , I extubated this patient to a Ventimask. The patient is doing well. Noted orogastric tube was removed and the patient was given a NG tube. She was having extensive amount of fecal impaction. She underwent manual disimpaction. The patient was also given lactulose to facilitate bowel activity. The follow -up chest x-ray from today still showing fecal stasis impaction still present. The patient has not been fed yet. The abdomen is nondistended. The patient is afebrile. White cell count is at 9.5. The antibiotic coverage includes a combination of Rocephin and vancomycin as the patient was found to have Klebsiella pneumonia in the sputum. He also noted a drop in the platelet counts for that reason the Zosyn was discontinued. I also took an opportunity to discontinue the subcu heparin considering related thrombocytopenia. The patient is currently wearing SCDs. She is awake. She is following some simple commands to the caregivers. On today's evaluation of 07/27/2018, I'm seeing this patient for a follow-up. As mentioned, the patient was extubated yesterday and she was on a Ventimask 40 % throughout the night. This morning she was still on 40% Ventimask. She had a congested cough. Rest or secretions were mainly in the upper airway and the lower lungs were essentially more clear. Based on that, we attempted the tracheal suctioning. Subsequently the patient became more short of breath and she had to be placed on BiPAP at a pressure of 12/5 centimeters of water with an FiO2 of 100%. The patient is looking better while on the BiPAP. She started an NG tube in place. She had had a bowel movement that the patient is being given laxatives. She'll feeds will be started today at a very low rate. No fever. No chills. The chest x-ray from today shows some worsening of the right upper lobe pulmonary infiltrate compatible with pneumonia. There are small better pleural effusion. NG tube is in a good location. The patient remains on a combination of IV Rocephin 2 g every 24 hours and IV vancomycin. Antibiotics have been modified as the patient was found to have Klebsiella pneumoniae in the sputum. She is lethargic. At times she arouses yet she is not fully interactive at this point in time. Platelet counts are remaining low. No other events otherwise for now. Yet again, the patient was found to be hypothermic and the patient was given external warming. Temperature dropped as low as 96.5. On today's evaluation of 07/28/2018, the patient is still not responsive. She responds only to deep painful stimulation. I took her off the BiPAP. The patient had some upper airway secretion. Deep tracheal suctioning was done and mucus was aspirated. The patient has a weak cough. Were able to restore patency of her upper airway. Currently she is a 40% Ventimask pH is starting her tube feeds. She is on a combination of IV Rocephin and vancomycin To the patient had aspirated and the patient developed Pneumonia in Her Sputum. She Is Receiving Enteral Feeding for Nutritional Support and She Is on Goal for Now. Note That This Morning She Was on a BiPAP Pressure of 12/5 Cm of Water and She Was Taken off the BiPAP. She Is Producing Stools. She Is Starting the Enteral Feeding. She Is Not Developing Any Abdominal Distention. Hemoglobin from today is 6.9 and the patient will be receiving a unit of packed RBC. No pressors. She was given a dose of Lasix yesterday. She is a negative fluid balance. We'll continue IV Lasix for another 24 hours. Chest x-ray from today shows stable about pulmonary infiltrates more so on the right and the patient is stable bilateral pleural effusions. Unfortunately, she is extremely lethargic and weak and she does have underlying developmental delay which is obviously affecting our ability at provide this patient if all and fast recovery. On 07/29/2018On 11 essentially the same and stable. Patient is on a 40% Ventimask. Mentation is not much improved. She'll occasionally reacts to painful stimulation and repeated stimulation verbally. Otherwise she is lethargic and sleeping most of the time. She is tolerating his tube feeds. No signs of any respiratory distress. Chest x-ray findings and essentially stable. The patient has bilateral pleural effusion and extensive consolidation of the right lung and limited consolidation of the left lung. The patient has been negative fluid balance while being on Lasix 40 mg IV push every 12 hours. Antibiotic coverage includes accommodation Rocephin and vancomycin. No agitation. No restlessness. No aspiration. No bowel movement for the past 24 hours and the patient is on lactulose 20 MO's once a day. No abdominal distention. Caregivers at the bedside. I think the prognosis essentially for yet do not think there is any intervention for the the caregivers and the nurses will be taking care of him to make suggestions about her CODE STATUS. I have explained to them on multiple occasions that this may not be a on a favorable outcome. On 07/30/2018 I'm seeing this patient for a follow-up. On today's evaluation, the patient is awake. She is opening her eyes. At times she is following commands. Despite this limited neurologic improvement, the patient is still very weak. She has a weak cough. Unable to take any oral feeds. The patient has an NG tube in place and her tube feeds are at goal. She is being diuresed with IV Lasix and she is negative fluid balance chest x-ray shows improvement of the right-sided pulmonary infiltrates. There is still some bilateral pleural effusions in the lung bases. She remains on accommodation Rocephin and Zithromax. She is calm and comfortable. A repeat abdominal film was done and there was evidence of normal bowel gas pattern. No significant fecal material is present. No fecal impaction. Based on this, I kept a lactulose and I kept the enteral feeding for nutritional support. No abdominal pain. No abdominal distention. No fever. No chills. White cell count of 5.6. Function is stable. No aspiration. No other complaints otherwise for now. On 07/31/2018, we see the patient to be again more awake and interactive compared to yesterday. The patient had an episode where she had some bleeding from her right nostril. This was controlled locally. She has an NG tube in the left nostril pH is awaiting her tube feeds. No significant rest or distress pH is currently on 2 L of oxygen by nasal cannula. She is being diuresed IV Lasix. She is on a combination of Rocephin and vancomycin. She is arousable. She is awake. Her cough is weak. However overall, feeling better. Meeting was done with a public guardian. The public guardian has consented for a PEG tube insertion and for that reason a GI consultation was obtained. White cell count is at 7.0. The rest of the electrodes are all within normal limits. She is getting slightly alkalotic along with her diuretics. The patient is seen today 08/01/2018 in follow-up in the intensive care unit. She is continued to be more and more awake and alert. She is more verbal. She is following simple commands. She is maintaining O2 saturations in the mid to upper 90s on 2 L/m per nasal cannula. She's currently afebrile. Hemodynamically stable. Regular rhythm. White count 6.5. Hemoglobin 7.7. Creatinine 0.65. She remains on albuterol nebulized treatments along with Pulmicort, she continues on vancomycin. Diuresing well with Lasix 40 mg every 12 hours. Remains in a negative balance. The plan is for PEG tube insertion. Objective - Vital Signs Vital signs: Vital Signs Temp 97.2 F L 08/01/18 12:00 Pulse 76 08/01/18 12:00 Resp 19 08/01/18 12:10 BP 128/66 08/01/18 12:00 Pulse Ox 95 08/01/18 12:00 Intake & Output 07/31/18 08/01/18 08/01/18 18:59 06:59 18:59 Intake Total 1140 665 400 Output Total 1452 1095 481 Balance -312 -430 -81 Weight 59.3 kg Intake: IV 360 390 400 .9 kvo 240 260 100 Dextrose 5%-0.9% NaCl 1, 120 130 50 000 ml @ 10 mls/hr IV . Q24H [facility] Rx#:[id number] Tube Feeding 660 275 0 Other 120 Output: Urine 1452 1095 480 Stool 1 Other: Voiding Method Indwelling Catheter Indwelling Catheter Indwelling Catheter # Bowel Movements 1 - Exam Patient is calm comfortable, her mental status fluctuates. Currently she is awake and verbal. She is currently on 2 L of oxygen by nasal cannula. She is awake. She looks around and occasionally follows some simple commands.. Head exam was generally normal. There was no scleral icterus or corneal arcus. Mucous membranes were moist. Neck was supple and without jugular venous distension, thyromegaly, or carotid bruits. Carotids were easily palpable bilaterally. There was no adenopathy. Lungs sounds reveal some rhonchi on the right compared to left. Few scattered expiratory wheezes. Otherwise breath sounds are equal and symmetrical bilaterally. Cardiac exam revealed the PMI to be normally situated and sized. The rhythm was regular and no extrasystoles were noted during several minutes of auscultation. The first and second heart sounds were normal and physiologic splitting of the second heart sound was noted. There were murmurs, no rubs, clicks, or gallops. The patient had a systolic ejection murmur consistent with her underlying aortic stenosis. This is grade 3/6. Abdominal exam revealed normal bowel sounds. The abdomen was soft, non-tender, and without masses, organomegaly, or appreciable enlargement of the abdominal aorta. Bowel sounds are hypoactive and abdomen is slightly distended Examination of the extremities revealed easily palpable radial, femoral and pedal pulses. There was no cyanosis, clubbing or edema. Examination of the skin revealed no evidence of significant rashes, suspicious appearing nevi or other concerning lesions. Neurologically less lethargic and more awake on today's evaluation and occasionally she is following some simple commands. Not fully interactive. No focal neurological deficit at this point in time. - Labs CBC & Chem 7: 08/01/18 04:10 08/01/18 04:10 Labs: Abnormal Lab Results - Last 24 Hours (Table) 07/31/18 07/31/18 08/01/18 Range/Units 18:19 23:49 04:10 RBC (3.80-5.40) m/uL Hgb (11.4-16.0) gm/dL Hct (34.0-46.0) % RDW (11.5-15.5) % Plt Count (150-450) k/uL Carbon Dioxide 37 H (22-30) mmol/L BUN 27 H (7-17) mg/dL Glucose 310 H (74-99) mg/dL POC Glucose (mg/dL) 116 H 113 H (75-99) mg/dL Calcium 7.6 L (8.4-10.2) mg/dL 08/01/18 08/01/18 08/01/18 Range/Units 04:10 05:43 11:43 RBC 2.73 L (3.80-5.40) m/uL Hgb 7.7 L (11.4-16.0) gm/dL Hct 24.8 L (34.0-46.0) % RDW 18.4 H (11.5-15.5) % Plt Count 111 L (150-450) k/uL Carbon Dioxide (22-30) mmol/L BUN (7-17) mg/dL Glucose (74-99) mg/dL POC Glucose (mg/dL) 106 H 106 H (75-99) mg/dL Calcium (8.4-10.2) mg/dL Assessment and Plan Assessment: Assessment 1 acute sepsis secondary to an extensive right lung pneumonia, addition to bilateral pleural effusions. We have grown Klebsiella pneumoniae from the patient's sputum. Currently on vancomycin. The patient still stable on 2 L of oxygen by nasal cannula. No signs of any respiratory distress for now. 2 acute hypotension secondary to above, recovered and the patient is currently maintaining her on blood pressure which is covered with broad-spectrum antibiotics. 3 acute leukocytosis secondary to above recovered 4 acute lactic acidosis secondary to above 5 hypothermia with altered mentation secondary to above, recovered, with subsequent recurrence in the lower upper trend the patient has been placed on external warming. 6 chronic anemia 7 seizure disorder, will be switched to liquid Depakote 8 developmental delay/Parkinson's disease/dementia/schizoaffective disorder 9 moderate degree of aortic stenosis with moderate pulmonary hypertension based on recent echocardiogram and the patient also has a mitral valve prolapse 10 difficulty with mobility and gait and the patient requires assistance with activities of daily life and 24/ 7 care 11 hypertension 12 hyperlipidemia 13 hypothyroidism 14 mild thrombocytopenia, improving 15 extensive fecal impaction him a post-enema, post lactulose treatment, post mechanical disimpaction. The patient is receiving laxatives and the patient was started on enteral feeding for nutritional support Plan: The patient was seen and evaluated by Dr. Lilly. She is more awake and alert. More vocal. We will continue with the current treatment plan. The plan is for PEG tube insertion today. We'll continue to follow. I, the cosigning physician, performed a history & physical examination of the patient. Lungs sounds with basilar crackles right greater than left. Maintaining good O2 saturations in the 90s on 2 L/m per nasal cannula. I discussed the assessment and plan of care with my nurse practitioner, Rica Thomas. I attest to the above note as dictated by her.
--- NOTE | 2018-08-01 14:28 | P.PCN ---
Date of Procedure: 08/01/18 Description of Procedure: Brief history: 78-year-old female with a history of developmental delay schizoaffective disorder admitted with acute respiratory failure and sepsis pneumonia unable to meet her nutritional needs. Patient has been fed tube feeds via NG tube and determined that she is not able to tolerate orally nutrition without risk for aspiration. She has lost her ability to swallow adequately very weak. Lethargic unable to provide a bedside swallow evaluation. Requires 24-hour care. Patient has a public guarding request for PEG tube insertion for nutrition support. White count 7. Hemoglobin 8.6. Receiving antibiotics. Procedure performed: EGD with PEG tube placement Preoperative diagnosis: Failure to thrive, history of aspiration IV sedation by anesthesia Estimated blood loss: Minimal. Procedure: After informed consent was obtained with the patient as well as the family the patient was brought into the endoscopy unit. IV conscious sedation was administered by anesthesia under continuous monitoring. The Olympus GF 190 video endoscope was inserted into the mouth and esophagus intubated without any difficulty and was gradually advanced to the stomach and duodenum. The bulb and second part of the duodenum was visualized which appeared normal. The scope at this time was withdrawn to the stomach adequately insufflated with air. Adequate transillumination was achieved onto the anterior abdominal wall. At the site of adequate transillumination and maximal finger indentation, on the anterior abdominal wall, this area was sterilely prepped and draped. One percent Lidocaine was infiltrated into the skin and a small incision was made. Trocar and cannula was passed through the incision into the stomach cavity. The trocar was removed. The insertion wire was passed through the cannula into the stomach. Insertion wire was snared and then the insertion wire, snare and endoscope were withdrawn from the mouth. The insertion wire was then attached to a 20-Anguillan [employer] PEG tube. The insertion wire was then pulled with the PEG tube through the incision site. PEG tube was pulled until the internal bolster was sitting snugly against the gastric mucosa which was confirmed with repeat EGD. On repeat EGD the esophagus was intubated without any difficulty and was advanced into the stomach. The internal bumper appeared to be in secure position. The visualized portions of the antrum body cardia and fundus of the stomach appeared normal. The esophagus was carefully examined as the scope was gradually being withdrawn which appeared normal. At this time external bumper was placed on the PEG tube closer to the anterior abdominal wall at 3 cm trang. The patient tolerated the procedure well. Impression: Successful 20-Anguillan [employer] PEG tube placement as described above. Recommendations: Findings of this examination were discussed with the patient's family. The patient will be started on tube feeds tomorrow, okay for meds and flushes of water tonight at 6 PM. Post-PEG tube orders were written.
[2018-08-01] MEDS: VANCOMYCIN 750 MG in SODIUM CHLORIDE 0.9% 250 ML IVPB SCH (15:26)
--- NOTE | 2018-08-01 20:05 | P.PN ---
Subjective Progress Note Date: 08/01/18 This is a 78-year-old female who was recently admitted June 17 through June 29 of which time she was treated for acute hypoxic respiratory failure with bilateral pulmonary infiltrates/aspiration pneumonia, lactic acidosis, hypothermia. Patient has underlying history of developmentally delay and has a public guardian. She was discharged home where she has 24-hour supervision and home care. She was discharged with Augmentin for another 5 days. Yesterday, patient was brought back into [facility] emergency center by EMS for altered mental status that are going on for the past few days with worsening mental status and productive cough with increasing weakness. She was found to have a rectal temperature of 89.9 and became severely hypotensive. In the emergency center, she was intubated, left IJ placed. White count 31, hemoglobin 9.6, platelet count 167, creatinine 0.7. Troponin was negative, TSH 1.6, lactic acid 4. Influenza testing negative. Urinalysis and urine drug screen negative. Chest x-ray shows new development of right-sided multifocal bronchopneumonia. Brain CT showed no definite acute process. 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 Patient is status post multiple units of saline fluid bolus and has been started on norepinephrine. Patient has been started on vancomycin and Zosyn. Repeat chest x-ray this morning reveals patchy infiltrate in the right lung compatible with pneumonia worsening from yesterday. Abdominal x-ray reveals moderate fecal retention correlate for constipation. Dislocation and erosion of the right hip region. Patient also presented with a stage III pressure ulcer to the left heel , stage II rash or ulcer to the buttock and stage II to the upper back. 07/26/2018 the patient is still on the ventilator but tolerating CPAP trial but still poor mentation patient though is slightly arousable partially open his eyes. Follows no commands. Moves right arm spontaneously. 07/27/2017 patient is off the ventilator and is currently on BiPAP. Continues to struggle with her pulmonary status. She is not arousable at this point in time. She however is not on vasopressor therapy. 07/31/2018 patient remains extubated really not following any commands. However with stimulation she did open eyes and open her mouth. One of the caregivers present and when questioned relates the patient will be going home to their care. 08/01/2018 pateint is with O2 on, and not interacting but is S/P PEG tube palcement. Appears comfortable. Caregiver is present and looks forward to her discharge to home under their care. Objective - Vital Signs Vital signs: Vital Signs Temp 97.6 F 08/01/18 17:00 Pulse 73 08/01/18 19:36 Resp 17 08/01/18 19:00 BP 138/82 08/01/18 19:00 Pulse Ox 98 08/01/18 19:00 Intake & Output 08/01/18 08/01/18 08/02/18 06:59 18:59 06:59 Intake Total 665 830 40 Output Total 1095 647 55 Balance -430 183 -15 Weight 59.3 kg Intake: IV 390 830 40 .9 kvo 260 200 20 Dextrose 5%-0.9% NaCl 1, 130 130 20 000 ml @ 10 mls/hr IV . Q24H DEANNA Rx#:[id number] Vancomycin 750 mg In 250 Sodium Chloride 0.9% 250 ml @ 125 mls/hr IVPB Q16H DEANNA Rx#:[id number] Tube Feeding 275 0 0 Output: Urine 1095 645 55 Stool 2 Other: Voiding Method Indwelling Catheter Indwelling Catheter # Bowel Movements 1 - Exam Gen: This is a 78-year-old female. She is in the ICU bed, currently just on nasal cannula oxygen HEENT: Head is atraumatic, normocephalic. Pupils equal, round. Sclerae is anicteric. The epistaxis is under control NECK: Supple. No JVD. No lymphadenopathy. No thyromegaly. LUNGS: Decreased on the right side with rhonchi. No intercostal retractions. HEART: Regular rate and rhythm. No murmur. ABDOMEN: Soft. Bowel sounds are present. No tenderness. EXTREMITIES: No pedal edema. No calf tenderness. Dorsalis pedis +2 bilaterally. SKIN: stage III pressure ulcer to the left heel, stage II rash or ulcer to the buttock and stage II to the upper back. NEUROLOGICAL: With the improve respiratory status only has oxygen in place. comfortable. - Labs CBC & Chem 7: 08/01/18 04:10 08/01/18 04:10 Labs: Abnormal Lab Results - Last 24 Hours (Table) 07/31/18 08/01/18 08/01/18 Range/Units 23:49 04:10 04:10 RBC 2.73 L (3.80-5.40) m/uL Hgb 7.7 L (11.4-16.0) gm/dL Hct 24.8 L (34.0-46.0) % RDW 18.4 H (11.5-15.5) % Plt Count 111 L (150-450) k/uL Carbon Dioxide 37 H (22-30) mmol/L BUN 27 H (7-17) mg/dL Glucose 310 H (74-99) mg/dL POC Glucose (mg/dL) 113 H (75-99) mg/dL Calcium 7.6 L (8.4-10.2) mg/dL 08/01/18 08/01/18 Range/Units 05:43 11:43 RBC (3.80-5.40) m/uL Hgb (11.4-16.0) gm/dL Hct (34.0-46.0) % RDW (11.5-15.5) % Plt Count (150-450) k/uL Carbon Dioxide (22-30) mmol/L BUN (7-17) mg/dL Glucose (74-99) mg/dL POC Glucose (mg/dL) 106 H 106 H (75-99) mg/dL Calcium (8.4-10.2) mg/dL Laboratory Results WBC 6.5 k/uL (3.8-10.6) 08/01/18 04:10 RBC 2.73 m/uL (3.80-5.40) L 08/01/18 04:10 Hgb 7.7 gm/dL (11.4-16.0) L 08/01/18 04:10 Hct 24.8 % (34.0-46.0) L 08/01/18 04:10 MCV 90.7 fL (80.0-100.0) 08/01/18 04:10 MCH 28.1 pg (25.0-35.0) 08/01/18 04:10 MCHC 31.0 g/dL (31.0-37.0) 08/01/18 04:10 RDW 18.4 % (11.5-15.5) H 08/01/18 04:10 Plt Count 111 k/uL (150-450) L 08/01/18 04:10 Neutrophils % 66 % 08/01/18 04:10 Neutrophils % (Manual) 63 % 07/24/18 15:37 Band Neutrophils % 24 % 07/24/18 15:37 Lymphocytes % 21 % 08/01/18 04:10 Lymphocytes % (Manual) 6 % 07/24/18 15:37 Monocytes % 8 % 08/01/18 04:10 Monocytes % (Manual) 2 % 07/24/18 15:37 Eosinophils % 3 % 08/01/18 04:10 Basophils % 0 % 08/01/18 04:10 Metamyelocytes % 3 % 07/24/18 15:37 Myelocytes % 3 % 07/24/18 15:37 Neutrophils # 4.3 k/uL (1.3-7.7) 08/01/18 04:10 Neutrophils # (Manual) 26.90 k/uL (1.3-7.7) H 07/24/18 15:37 Lymphocytes # 1.4 k/uL (1.0-4.8) 08/01/18 04:10 Lymphocytes # (Manual) 1.86 k/uL (1.0-4.8) 07/24/18 15:37 Monocytes # 0.5 k/uL (0-1.0) 08/01/18 04:10 Monocytes # (Manual) 0.62 k/uL (0-1.0) 07/24/18 15:37 Eosinophils # 0.2 k/uL (0-0.7) 08/01/18 04:10 Basophils # 0.0 k/uL (0-0.2) 08/01/18 04:10 Metamyelocytes # (Man) 0.93 k/uL (0) H 07/24/18 15:37 Myelocytes # (Manual) 0.93 k/uL (0) H 07/24/18 15:37 Nucleated RBCs 0 /100 WBC (0-0) 07/24/18 15:37 Manual Slide Review Performed 07/26/18 04:45 Toxic Granulation Present 07/24/18 15:37 Toxic Vacuolation Present 07/24/18 15:37 Large Platelets Present 07/24/18 15:37 Polychromasia Present 07/24/18 15:37 Hypochromasia Slight 08/01/18 04:10 Poikilocytosis (manual Present 07/24/18 15:37 Anisocytosis Slight 08/01/18 04:10 Macrocytosis Slight 07/26/18 04:45 PT 10.0 sec (9.0-12.0) 07/24/18 15:37 INR 0.9 (<1.2) 07/24/18 15:37 APTT 26.6 sec (22.0-30.0) 07/24/18 15:37 Sample Site Left Radial 07/26/18 11:53 ABG pH 7.39 (7.35-7.45) 07/26/18 11:53 ABG pCO2 39 mmHg (35-45) 07/26/18 11:53 ABG pO2 57 mmHg (83-108) L* 07/26/18 11:53 ABG HCO3 24 mmol/L (21-25) 07/26/18 11:53 ABG Total CO2 25 mmol/L (19-24) H 07/26/18 11:53 ABG O2 Saturation 89.0 % (94-97) L 07/26/18 11:53 ABG Base Excess -1.3 mmol/L 07/26/18 11:53 Ramez Test Yes 07/26/18 11:53 FiO2 35 % 07/26/18 11:53 Sodium 137 mmol/L (137-145) 08/01/18 04:10 Potassium 3.7 mmol/L (3.5-5.1) 08/01/18 04:10 Chloride 98 mmol/L (98-107) 08/01/18 04:10 Carbon Dioxide 37 mmol/L (22-30) H 08/01/18 04:10 Anion Gap 2 mmol/L 08/01/18 04:10 BUN 27 mg/dL (7-17) H 08/01/18 04:10 Creatinine 0.65 mg/dL (0.52-1.04) 08/01/18 04:10 Est GFR (CKD-EPI)AfAm >90 (>60 ml/min/1.73 sqM) 08/01/18 04:10 Est GFR (CKD-EPI)NonAf 86 (>60 ml/min/1.73 sqM) 08/01/18 04:10 Glucose 310 mg/dL (74-99) H 08/01/18 04:10 POC Glucose (mg/dL) 106 mg/dL (75-99) H 08/01/18 11:43 POC Glu Psychiatric Technician Assistant ID 08/01/18 11:43 Lactic Ac Sepsis Rflx Y 07/24/18 16:23 Plasma Lactic Acid Jason 1.2 mmol/L (0.7-2.0) 07/24/18 19:54 Calcium 7.6 mg/dL (8.4-10.2) L 08/01/18 04:10 Phosphorus 4.1 mg/dL (2.5-4.5) 07/29/18 04:32 Magnesium 1.9 mg/dL (1.6-2.3) 08/01/18 04:10 Total Bilirubin 0.5 mg/dL (0.2-1.3) 07/24/18 15:37 AST 62 U/L (14-36) H 07/24/18 15:37 ALT 50 U/L (9-52) 07/24/18 15:37 Alkaline Phosphatase 138 U/L (38-126) H 07/24/18 15:37 Ammonia <9 umol/L (<30) 07/24/18 16:35 Total Creatine Kinase 376 U/L (30-135) H 07/24/18 15:37 CK-MB (CK-2) 9.3 ng/mL (0.0-2.4) H 07/24/18 15:37 CK-MB (CK-2) Rel Index 2.5 07/24/18 15:37 Troponin I <0.012 ng/mL (0.000-0.034) 07/24/18 15:37 Total Protein 5.8 g/dL (6.3-8.2) L 07/24/18 15:37 Albumin 2.8 g/dL (3.5-5.0) L 07/24/18 15:37 Lipase 28 U/L (23-300) 07/24/18 15:37 Procalcitonin 1.37 ng/mL (0.02-0.09) H 07/24/18 15:37 TSH 1.600 mIU/L (0.465-4.680) 07/24/18 15:37 Urine Color Yellow 07/24/18 16:43 Urine Appearance Clear (Clear) 07/24/18 16:43 Urine pH 5.5 (5.0-8.0) 07/24/18 16:43 Ur Specific [place] 1.010 (1.001-1.035) 07/24/18 16:43 Urine Protein Negative (Negative) 07/24/18 16:43 Urine Glucose (UA) Negative (Negative) 07/24/18 16:43 Urine Ketones Negative (Negative) 07/24/18 16:43 Urine Blood Negative (Negative) 07/24/18 16:43 Urine Nitrite Negative (Negative) 07/24/18 16:43 Urine Bilirubin Negative (Negative) 07/24/18 16:43 Urine Urobilinogen <2.0 mg/dL (<2.0) 07/24/18 16:43 Ur Leukocyte Esterase Negative (Negative) 07/24/18 16:43 Vancomycin Trough 17.8 ug/mL 07/31/18 06:50 Urine Opiates Screen Not Detected (NotDetected) 07/24/18 16:43 Ur Oxycodone Screen Not Detected (NotDetected) 07/24/18 16:43 Urine Methadone Screen Not Detected (NotDetected) 07/24/18 16:43 Ur Propoxyphene Screen Not Detected (NotDetected) 07/24/18 16:43 Ur Barbiturates Screen Not Detected (NotDetected) 07/24/18 16:43 Valproic Acid 25.5 ug/mL 07/27/18 18:00 U Tricyclic Antidepress Not Detected (NotDetected) 07/24/18 16:43 Ur Phencyclidine Scrn Not Detected (NotDetected) 07/24/18 16:43 Ur Amphetamines Screen Not Detected (NotDetected) 07/24/18 16:43 U Methamphetamines Scrn Not Detected (NotDetected) 07/24/18 16:43 U Benzodiazepines Scrn Not Detected (NotDetected) 07/24/18 16:43 Urine Cocaine Screen Not Detected (NotDetected) 07/24/18 16:43 U Marijuana (THC) Screen Not Detected (NotDetected) 07/24/18 16:43 Influenza Type A RNA Not Detected (Not Detectd) 07/24/18 15:37 Influenza Type B (PCR) Not Detected (Not Detectd) 07/24/18 15:37 Blood Type AB Positive 07/28/18 12:14 Blood Type Recheck No 07/28/18 12:14 Antibody Screen NEGATIVE 07/28/18 12:14 Crossmatch See Detail 07/28/18 12:14 Spec Expiration Date 07/31/2018 - 2314 07/28/18 12:14 Microbiology 07/24/18 15:37 Blood Blood Culture - Final No Growth after 144 hours 07/24/18 20:08 Sputum Gram Stain - Final 07/24/18 20:08 Sputum Sputum Culture - Final Klebsiella pneumoniae 07/24/18 16:43 Urine,Catheterized Urine Culture - Final Assessment and Plan (1) Acute UTI Current Visit: No Status: Acute Code(s): N39.0 - URINARY TRACT INFECTION, SITE NOT SPECIFIED SNOMED Code(s): 980864603 (2) Pneumonia Narrative/Plan: As noted patient is intubated today mechanically ventilated and the low dose of vasopressor at this time. There is concerned it could've been aspiration and consequently treatment for this is penalized with vancomycin and Zosyn given that she is coming from a care facility. The pressure ulcerations are being treated with the optifoam dressings and offloading. Cultures are process. It may further help direct antimicrobial therapy. She is on 35% FiO2 and PEEP of 5 and hopefully will rapidly improved. The significant hypothermia has also resolved with resuscitation and warming. July 26 2018 patient is had some improvement of her pulmonary status is now on a CPAP trial as you tolerating relatively well. However still has somewhat poor mentation. She seems quite comfortable and has some spontaneous movements. Is evidence of the Serratia infection with pneumonia responding well to current antimicrobial therapy of Rocephin. Wounds are being treated with optifoam dressings. She is also on a specialty bed. The case is discussed with her primary caregiver and hopefully she will get an air mattress overlay for her hospital bed at home to help her with her current pressure ulcerations. Antibiotic therapy is altered today from Zosyn to Rocephin and that the susceptibility is available for the Serratia and there is concern dropped her platelets which is likely from Zosyn. 07/27/2018 the patient is extubated but is now on significant support with BiPAP. Concern is that she'll develop further respiratory failure. Unclear if reintubation will be occurring given her significant multiple comorbidities and progressive decline in status. Continue treatment for underlying pneumonia. Platelet count at 56,000 today. The piperacillin tazobactam as been discontinued as well as heparin. Continue to monitor for improvement underlying sepsis as the driving factor for the thrombocytopenia. Prognosis is poor. 07/31/2018 patient remains extubated and just on nasal cannula oxygen. She apparently will have her PEG tube placed in the next short period of time. Her prognosis remains poor with her very poor mental status. Discussion with social work reveals that the guardian will have the patient placed in residence at discharge. Griseldahin completes today vancomycin tomorrow. Will not need outpatient intravenous antibiotic therapy. Thrombocytopenia that had developed resolving boots now at 111,000. Likely multifactorial including her sepsis and piperacillin tazobactam therapy. Current Visit: No Status: Acute Code(s): J18.9 - PNEUMONIA, UNSPECIFIED ORGANISM SNOMED Code(s): 327167650
[2018-08-01 23:17] LABS: Glucose,Whole Blood 102 mg/dL (75-99)
[2018-08-02] MEDS: NOREPINEPHRINE 32 MG in SODIUM CHLORIDE 0.9% 218 ML IV SCH (04:16)
[2018-08-02] MEDS: DEXTROSE 5%-0.9% NACL 1,000 ML IV SCH ×2 (04:16→04:28)
[2018-08-02 05:27] LABS: Anisocytosis Slight; Basophils # (A) 0.1 k/uL (0-0.2); Basophils % (A) 1 %; Eosinophils # (A) 0.2 k/uL (0-0.7); Eosinophils % (A) 3 %; HCT 25.8 % (34.0-46.0); HGB 8.2 gm/dL (11.4-16.0); Hypochromasia Slight; Lymphocytes # (A) 1.3 k/uL (1.0-4.8); Lymphocytes % (A) 21 %; MCH 28.4 pg (25.0-35.0); MCHC 31.7 g/dL (31.0-37.0); MCV 89.7 fL (80.0-100.0); Mean Platelet Volume 7.5; Monocytes # (A) 0.5 k/uL (0-1.0); Monocytes % (A) 8 %; Neutrophils % (A) 66 %; Platelet Count 151 k/uL (150-450); RBC 2.87 m/uL (3.80-5.40); RDW 18.3 % (11.5-15.5); WBC 6.2 k/uL (3.8-10.6)
[2018-08-02 05:29] LABS: Glucose,Whole Blood 87 mg/dL (75-99)
[2018-08-02 05:37] LABS: Anion Gap 2 mmol/L; Blood Urea Nitrogen 24 mg/dL (7-17); Calcium 8.4 mg/dL (8.4-10.2); Carbon Dioxide 40 mmol/L (22-30); Chloride 95 mmol/L (98-107); Glucose 94 mg/dL (74-99); Potassium 3.9 mmol/L (3.5-5.1); Sodium 137 mmol/L (137-145)
[2018-08-02] MEDS: LEVOTHYROXINE 125 MCG TAB PO SCH (06:16)
[2018-08-02] MEDS: LACTULOSE 20 GM/30 ML CUP PO SCH (08:12)
[2018-08-02] MEDS: VALPROIC ACID ORAL SOLN 250 MG/5 ML CUP NG-TUBE SCH ×2 (08:12→21:19)
[2018-08-02] MEDS: FERROUS SULFATE ORAL ELIXIR 300 MG/5 ML CUP PO SCH ×2 (08:12→21:19)
[2018-08-02] MEDS: BENZTROPINE MESYLATE 0.5 MG TAB PO SCH ×2 (08:13→21:20)
[2018-08-02] MEDS: ASPIRIN 81 MG PO SCH (08:13)
[2018-08-02] MEDS: risperiDONE 1 MG TAB PO SCH ×2 (08:13→21:20)
[2018-08-02] MEDS: VANCOMYCIN 750 MG in SODIUM CHLORIDE 0.9% 250 ML IVPB SCH ×2 (08:13→23:59)
[2018-08-02] MEDS: FUROSEMIDE 10 MG/ML 4 ML VIAL IV SCH (08:13)
[2018-08-02] MEDS: PANTOPRAZOLE 40 MG/10 ML VIAL IV SCH (08:13)
[2018-08-02] MEDS: ATORVASTATIN 10 MG TAB PO SCH (08:13)
[2018-08-02] MEDS: ALBUTEROL NEBULIZED 2.5 MG/3 ML INHALATION SCH ×4 (08:24→19:52)
[2018-08-02] MEDS: BUDESONIDE 0.25 MG/2 ML NEBU INHALATION SCH ×2 (08:24→19:52)
--- NOTE | 2018-08-02 11:33 | XR ---
EXAMINATION TYPE: XR chest 1V DATE OF EXAM: 08/02/2018 CLINICAL HISTORY: Difficulty breathing progress study. TECHNIQUE: Single AP portable frontal view of the chest is obtained. COMPARISON: Chest x-ray from 3 days earlier. FINDINGS: There is interval removal of nasogastric tube. New PEG tube epigastric region is noted. Th ere is stable left internal jugular central venous catheter. Cardiac silhouette size is stable and up per limits of normal. Improved aeration right mid lung is noted. There is persistent left basilar opa city. Suspect persistent small right pleural effusion. Osseous structures remain demineralized. IMPRESSION: Interval removal of nasogastric tube with new PEG tube. Chronic parenchymal changes with persistent small bilateral pleural effusions and persistent right midlung and left basilar acute infi ltrate and/or atelectasis. Interval improved aeration right midlung noted.
--- NOTE | 2018-08-02 12:06 | P.PN ---
Subjective Progress Note Date: 08/02/18 Principal diagnosis: Dysphagia unable to maintain nutritional needs Status post PEG tube insertion yesterday. No bleeding erythema or swelling at site. Hemoglobin 8.2. White count 6.2. Objective - Vital Signs Vital signs: Vital Signs Temp 97.9 F 08/02/18 08:00 Pulse 72 08/02/18 11:59 Resp 20 08/02/18 08:00 BP 124/50 08/02/18 08:00 Pulse Ox 95 08/02/18 08:00 Intake & Output 08/01/18 08/02/18 08/02/18 18:59 06:59 18:59 Intake Total 830 310 270 Output Total 647 1090 351 Balance 183 780 -81 Weight 58.5 kg Intake: IV 830 310 270 .9 kvo 200 150 0 Dextrose 5%-0.9% NaCl 1, 130 160 20 000 ml @ 20 mls/hr IV . Q24H DEANNA Rx#:[id number] Vancomycin 750 mg In 250 250 Sodium Chloride 0.9% 250 ml @ 125 mls/hr IVPB Q16H DEANNA Rx#:[id number] Tube Feeding 0 0 Output: Urine 645 1090 350 Stool 2 1 Other: Voiding Method Indwelling Catheter Indwelling Catheter Indwelling Catheter # Bowel Movements 1 - Exam General appearance: The patient is nonverbal resting. HET: Head is normocephalic and atraumatic. Pupils are equal and reactive. Oropharynx is clear without lesions. Neck: Supple without lymphadenopathy. Trachea midline. Heart: S1 S2. Regular rate and rhythm. Lungs: No crackles or wheezes are heard. Abdomen: Soft, PEG tube without erythema or drainage or swelling, nondistended with bowel sounds. No peritoneal signs. No palpable organomegaly or masses. Extremities: Normal skin color and turgor. No cyanosis, rash, ulceration, clubbing, or edema. Radial and pedal pulses are 2/4 bilaterally. - Labs CBC & Chem 7: 08/02/18 04:20 08/02/18 04:20 Labs: Abnormal Lab Results - Last 24 Hours (Table) 08/01/18 08/02/18 08/02/18 Range/Units 23:15 04:20 04:20 RBC 2.87 L (3.80-5.40) m/uL Hgb 8.2 L (11.4-16.0) gm/dL Hct 25.8 L (34.0-46.0) % RDW 18.3 H (11.5-15.5) % Chloride 95 L (98-107) mmol/L Carbon Dioxide 40 H (22-30) mmol/L BUN 24 H (7-17) mg/dL POC Glucose (mg/dL) 102 H (75-99) mg/dL Assessment and Plan (1) Dysphagia Narrative/Plan: 78-year-old female developmental delay schizoaffective disorder admitted with acute sepsis acute respiratory failure pneumonia dysphagia and lethargy unable to swallow and meet her nutritional needs. Status post PEG tube insertion. Current Visit: Yes Status: Acute Code(s): R13.10 - DYSPHAGIA, UNSPECIFIED SNOMED Code(s): 17617613 (2) Septic shock Current Visit: Yes Status: Acute Code(s): A41.9 - SEPSIS, UNSPECIFIED ORGANISM; R65.21 - SEVERE SEPSIS WITH SEPTIC SHOCK SNOMED Code(s): 20741366 (3) Acute and chronic respiratory failure with hypoxia Current Visit: No Status: Acute Code(s): J96.21 - ACUTE AND CHRONIC RESPIRATORY FAILURE WITH HYPOXIA SNOMED Code(s): 23605947 (4) Pneumonia Current Visit: No Status: Acute Code(s): J18.9 - PNEUMONIA, UNSPECIFIED ORGANISM SNOMED Code(s): 762082250 Plan: 1. May use PEG tube for medications and nutrition as directed. We'll follow on an as-needed basis. Assessment and plan a care discussed with Dr. Booth
[2018-08-02 13:01] VITALS: RESP 16
[2018-08-02 13:04] LABS: Glucose,Whole Blood 101 mg/dL (75-99)
--- NOTE | 2018-08-02 14:37 | P.PN ---
Subjective Progress Note Date: 08/02/18 78-year-old female who has been seen Dr. Means lately who was in the hospital not too long ago with sepsis and altered mental status and sepsis seems like she had urinary tract infection from cystitis with positive blood culture for staph infection. Patient had an episode of acute hypoxic respiratory failure was on BiPAP at the time and have acute lactic acidosis with severe hypokalemia and acute kidney injury also had pancytopenia due to sepsis is known to have development delay and history of schizoaffective disorders. Patient left the hospital on June 29. Patient found by the caregiver to have significant alter mental status with decline in mobility and her respond. Not been able to transfer herself patient brought to the emergency department [place] via EMS was seen and evaluated she was hypothermic, hypoxic, having significant shortness of breath mildly elevated troponin and blood pressure declined significantly with significant elevated lactic acid. Patient was intubated and admitted to the intensive care unit afterward for the above problem. 07/25/2018: Patient is more stable hemodynamically, blood pressure is much better controlled, still on vasopressor, still intubated on mechanical ventilation but temperature has improved and her vitals are much better respond to the current dose of IV antibiotic between Vanco and Zosyn. The caregiver was informed that if patient had problem with aspiration and possibility of dysphagia might require PEG tube something will be communicating with the legal guardian for possibility after she is extubated. 07/26: Patient remains intubated and on mechanical ventilation with tidal volume 400, FiO2 35 and PEEP of 5. She has been off levo fed since 745 last evening. She is status post Dulcolax suppository, lactulose and soapsuds enema was given this morning. She has had 3 bowel movements and was disimpacted yesterday. Abdominal x-ray this morning reveals ET tube may need to be pulled back slightly. Patchy infiltrate throughout the right lung persist. Small bilateral pleural effusions and additional left basilar atelectasis and/or consolidation. Suspect background of COPD. Nonobstructive bowel gas pattern. No free air. Continued moderate to large stool burden suggesting constipation. Patient has been seen by Dr. Wei for antibiotic recommendations and patient continues on vancomycin and Zosyn. Multiple decubitus ulcers have been addressed by Dr. Wei. Temperature has improved and is running normal at this point. Heart rate in the 60s and 70s, blood pressure 110/52. White count 9.4, hemoglobin 7.2, platelet count is 63. Dr. Wei's change Zosyn to ceftriaxone. Sputum cultures positive for Klebsiella, pansensitive. Blood culture showing no growth. 07/27: Patient was extubated yesterday afternoon. She remains off vasopressors. She did have a lot of liquid stools last evening. Urine output is at 70 mL per hour. She is currently not on sedation and not responsive. Anticipate that to feedings will be started today as NG tube remains in place. She is currently on Ventimask at FiO2 of 55 pulse oxing 95%. Temperature remains on the lower side at 96.5, heart rates in the 80s and 90s, respirations in the 20s , blood pressure 120/60. White count is normalized, hemoglobin 7.8 and platelet count 78. Potassium is 3.0 and replaced. Repeat chest x-ray shows worsening right upper lobe infiltrate can be compatible with pneumonia. Small bilateral pleural effusions. She is currently on IV antibiotics with ceftriaxone and vancomycin. Caregiver is at the bedside and has been updated. 07/28: Patient was on a Ventimask in the evening where she began to show some fatigue. Patient was transitioned to a BiPAP which she is tolerating at this time. Patient has not had any more stools since yesterday. Urine output is 70 ML's per hour. Patient is arousable to deep pain. Patient does not follow commands withdrawal from pain but does not open eyes. Telemetry shows normal sinus rhythm. WBC 5.4, hemoglobin 6.9, platelets 58, sodium 137, potassium 3.9 , BUN 7 creatinine 0.63, magnesium 1.9. 07/29: Patient is currently on a Ventimask. Family and caregiver state that the patient has been more alert and able to open eyes with verbal stimuli and attempting to converse. Upon examination patient is unresponsive to verbal stimuli not opening eyes to painful stimuli. Patient remained afebrile. She is tolerating feedings with no residual. Telemetry shows normal sinus rhythm. Urine and blood cultures are negative. Sputum is showing Klebsiella pneumoniae. 07/30: Patient is tolerating tube feedings. She remains mostly unresponsive but he reacts occasionally to painful stimuli. She is continued on Rocephin and vancomycin. She has been afebrile, currently O2 saturation 95% on 2 L nasal cannula, blood pressure 122/53, heart rate running in the 70s and 80s. White count is normal, hemoglobin 8.9, platelet count 85. CO2 39, creatinine 0.72. Capillary blood glucose running between 108 and 112. Repeat chest x-ray shows improving right perihilar infiltrate. Small bilateral pleural effusions. Caregiver is at the bedside and states that the patient was awake and talking for about an hour this morning. Patient is currently unresponsive. 07/31: Patient is slightly more awake today. She is currently on Rocephin and vancomycin. She is also continued on IV Lasix 40 mg every 12 hours. Urine output has been adequate. Met with public guardian and she will obtain DO NOT RESUSCITATE orders from Court. Consent has been given for PEG tube insertion and GI consultation has been added. Hemoglobin is 8.6, CO2 40, sodium 135, potassium 3.9, chloride 93, creatinine 0.76. Capillary blood glucose running between 99 and 120. 08/01: Patient remains in the intensive care unit. Patient is awake this morning and able to answer questions. She is scheduled for PEG tube placement today. Discharge plan has changed to returning home which we anticipate will happen on Monday. She has complete her course of Rocephin. She is on vancomycin pharmacy is dosing. Patient has been afebrile, blood pressure 120/66 , pulse ox 95 200% on 2 L nasal cannula, heart rate running in the 70s. White count is normal, hemoglobin 7.7, platelet count 111. Capillary blood glucose between 106 and 116, creatinine 0.65. 08/02: Patient remains in the intensive care unit awaiting a bed [facility] the [facility] floor. PEG tube was placed yesterday. Patient to be on tube feedings at the time of discharge. Plan is for discharge home tomorrow if arrangements are being made with case management for air mattress due to her decubitus ulcers, stage II and also tube feedings. She has been afebrile, heart rate in the 70s and 80s, blood pressure 125/66, pulse ox 96% on 1 L nasal cannula. White count 6.2, hemoglobin 8.2, platelets 151, creatinine 0.61. Blood sugars run between 87 and 102. Patient is awake and alert and able to answer simple questions. Brunson will be removed today. Review Of Systems: Constitutional: No fever, no chills. EENT: No headache. No nasal drainage or congestion. No epistaxis. Lungs: No shortness of breath, cough, no sputum production. No wheezing. Cardiovascular: No chest pain, no lower extremity edema. No palpitations. No paroxysmal nocturnal dyspnea. No orthopnea. No lightheadedness or dizziness. No syncopal episodes. Abdominal: No abdominal pain. No nausea, vomiting. No diarrhea. No constipation. No bloody or tarry stools.. No loss of appetite. Genitourinary: No dysuria, increased frequency, urgency. No urinary retention. Musculoskeletal: No myalgias. No muscle weakness, no gait dysfunction, no frequent falls. No back pain. No neck pain. Integumentary: Decubitus ulcer.. Neurologic: No aphasia. No facial droop. No change in mentation. No head injury. No headache. No paralysis. No paresthesia. Psychiatric: No depression. No anxiety. Endocrine: No abnormal blood sugars. No weight change. No excessive sweating or thirst. No cold intolerance. Objective - Vital Signs Vital signs: Vital Signs Temp 97.9 F 08/02/18 12:00 Pulse 72 08/02/18 12:10 Resp 16 08/02/18 13:00 BP 125/55 08/02/18 13:00 Pulse Ox 96 08/02/18 12:00 Intake & Output 08/01/18 08/02/18 08/02/18 18:59 06:59 18:59 Intake Total 830 310 310 Output Total 647 1090 851 Balance 915 -500 -871 Weight 58.5 kg Intake: IV 830 310 310 .9 kvo 200 150 20 Dextrose 5%-0.9% NaCl 1, 130 160 40 000 ml @ 20 mls/hr IV . Q24H DEANNA Rx#:[id number] Vancomycin 750 mg In 250 250 Sodium Chloride 0.9% 250 ml @ 125 mls/hr IVPB Q16H DEANNA Rx#:[id number] Tube Feeding 0 0 Output: Urine 645 1090 850 Stool 2 1 Other: Voiding Method Indwelling Catheter Indwelling Catheter Indwelling Catheter # Bowel Movements 1 - Exam General Appearance: Patient is responsive to verbal stimuli. She is sitting up in a recliner appears to be comfortable. Neck HEENT: Supple, no lymphadenopathy, no thyroid enlargement, no carotid bruits. Lungs: Decreased breaths in bilaterally specially the right side with fine rhonchi positive crackles and wheezes bilaterally. Chest Wall: Decreased expansion with deep inspiration no soreness no rash no deformity. Heart: Regular rate and rhythm, S1, S2 normal, no murmur, rub or gallop. Back: Symmetric, no curvature, ROM normal, no CVA tenderness. Abdomen: Soft, non-tender, bowel sounds active all four quadrants, no masses, no organomegaly. Fecal bulk seems to be resolved. Extremities: Extremities normal, atraumatic, no cyanosis or edema. Pulses: 2+ and symmetric. Skin: Skin color, texture, tugor normal, no rashes or lesions. Neurologic: Patient is awake and alert response to verbal stimuli. She is able to answer simple questions. - Labs CBC & Chem 7: 08/02/18 04:20 08/02/18 04:20 Labs: Abnormal Lab Results - Last 24 Hours (Table) 08/01/18 08/02/18 08/02/18 Range/Units 23:15 04:20 04:20 RBC 2.87 L (3.80-5.40) m/uL Hgb 8.2 L (11.4-16.0) gm/dL Hct 25.8 L (34.0-46.0) % RDW 18.3 H (11.5-15.5) % Chloride 95 L (98-107) mmol/L Carbon Dioxide 40 H (22-30) mmol/L BUN 24 H (7-17) mg/dL POC Glucose (mg/dL) 102 H (75-99) mg/dL 08/02/18 Range/Units 13:03 RBC (3.80-5.40) m/uL Hgb (11.4-16.0) gm/dL Hct (34.0-46.0) % RDW (11.5-15.5) % Chloride (98-107) mmol/L Carbon Dioxide (22-30) mmol/L BUN (7-17) mg/dL POC Glucose (mg/dL) 101 H (75-99) mg/dL Assessment and Plan Plan: 1 acute hypoxic respiratory failure secondary to aspiration pneumonia with severe sepsis, septic shock. Patient has been extubated. Consult with Dr. Vijyaa ambrosio. 2 sepsis with septic shock from Klebsiella aspiration pneumonia, UTI and recent sepsis with staph infection previously. Currently on vancomycin. Completed course of ceftriaxone 3 severe right-sided pneumonia: Possibly gram-negative versus aspiration, completed course of ceftriaxone. Continue vancomycin. 4 dysphagia: Speech therapy to evaluate on Monday and if needed might need PEG tube. 5 severe lactic acidosis: Continue sepsis protocol repeat lactic acid and CBC. 6 hypothyroidism: Switch patient to IV thyroid medication have to does normally till she is able to take her oral intake. 7 hyperlipidemia: We'll hold her atorvastatin for now. 8 schizoaffective disorders has been on Risperdal, Cogentin and Depakote. 9 COPD: Patient has been on Pulmicort and Ventolin. 10 iron deficiency anemia. 11 DVT prophylaxis: Will continue patient on heparin subcutaneous. 12 GI prophylaxis: Patient will be on pantoprazole IV. 13. Fecal impaction contributing to aspiration. 14. Thrombocytopenia possibly related to Zosyn or from sepsis. Zosyn changed to ceftriaxone 15. Metabolic encephalopathy, possible anoxic encephalopathy. 16. Severe protein calorie malnutrition due to lack of oral intake for extended period requiring tube feedings. GI consult for PEG tube insertion. CODE STATUS no code Discharge plan: Home on Monday with caregivers and [facility] Impression and plan of care have been directed as dictated by the signing physician. Dominique Carpio nurse practitioner acting as scribe for signing physician.
[2018-08-02 15:32] VITALS: BMI 22.1
--- NOTE | 2018-08-02 16:26 | P.PN ---
Subjective Progress Note Date: 08/02/18 Principal diagnosis: Kew to sepsis secondary to extensive right lung pneumonia and bilateral pleural effusions This 78-year-old female patient was coming into the hospital because of altered mental status and respiratory failure. The patient was found to be by the caregivers to have difficulties with generalized weakness in her mentation seems to be altered specially over the past 24-48 hours prior to coming to the hospital. She had also difficulties and mobility and she was heart to respond. At that point the caregiver decided to bring this patient back to the hospital for further evaluation. The patient is known to me. I took care of her back in November 2018 for complications of acute hypoxic respiratory failure and acute bilateral aspiration pneumonia. Back then the patient was she is appropriate and the patient recovered and the patient was discharged home. Note that the patient at that time also had a UTI secondary to staphylococcal infection. Patient was brought to the ED for the above-mentioned reasons. Apparently there was a history of productive cough. The patient was found initially to be severely hypothermic. An ultrasound of the heart was done and it showed reduced LV filling pressures secondary to intravascular volume depletion/dehydration. There were 3 evaluation was done and the patient was found to have leukocytosis with a white cell count of 31. Her lactic acid level was at 4.0. Influenza screen was negative. Urinalysis was unremarkable. Chest x-ray showed extensive right lung pulmonary for treated consistent with an underlying pneumonia. The patient was intubated and placed on mechanical ventilator. The troponin catheter was inserted and following that the patient was sent to the ICU. An x-ray of the abdomen was also done that showed extensive moderate to severe fecal impaction within the large bowel. According to the caregiver, the patient was complaining of some abdominal distention big abdominal pain. Currently, the patient is in intensive care unit. The patient is sedated with Diprivan and she is calm and comfortable. She is on a mechanical ventilator and the patient is an assist-control mode rate of 12, tidal volume of 400 with FiO2 of 35% and a PEEP of 5. She is on pressors and she is running on levo fed at 0.03 mics per KG per minute. She is also on propofol running at 5 g per KG per minute. On today's evaluation of 07/26/2018 I'm seeing this patient for a follow-up. The patient was intubated for an extensive right lung pneumonia. The patient remains intubated on a mechanical ventilator. This morning the patient was an FiO2 of 35% with a PEEP of 5 and tidal volume of 400 with rate of 12. Follow- up chest x-ray showed improvement in the right lung pulmonary infiltrate. He was admitted location. The patient was taken off sedation. The patient a decent cough. No symptoms and orotracheal secretions. Based on that, we will give the patient is point is breathing trial with a pressure support of 5 and a PEEP of 5. After 1 hour of spontaneous breathing trial, the patient had a blood. That showed a pH of 7.39 with a pCO2 of 39 and pO2 of 57. Based on that , I extubated this patient to a Ventimask. The patient is doing well. Noted orogastric tube was removed and the patient was given a NG tube. She was having extensive amount of fecal impaction. She underwent manual disimpaction. The patient was also given lactulose to facilitate bowel activity. The follow -up chest x-ray from today still showing fecal stasis impaction still present. The patient has not been fed yet. The abdomen is nondistended. The patient is afebrile. White cell count is at 9.5. The antibiotic coverage includes a combination of Rocephin and vancomycin as the patient was found to have Klebsiella pneumonia in the sputum. He also noted a drop in the platelet counts for that reason the Zosyn was discontinued. I also took an opportunity to discontinue the subcu heparin considering related thrombocytopenia. The patient is currently wearing SCDs. She is awake. She is following some simple commands to the caregivers. On today's evaluation of 07/27/2018, I'm seeing this patient for a follow-up. As mentioned, the patient was extubated yesterday and she was on a Ventimask 40 % throughout the night. This morning she was still on 40% Ventimask. She had a congested cough. Rest or secretions were mainly in the upper airway and the lower lungs were essentially more clear. Based on that, we attempted the tracheal suctioning. Subsequently the patient became more short of breath and she had to be placed on BiPAP at a pressure of 12/5 centimeters of water with an FiO2 of 100%. The patient is looking better while on the BiPAP. She started an NG tube in place. She had had a bowel movement that the patient is being given laxatives. She'll feeds will be started today at a very low rate. No fever. No chills. The chest x-ray from today shows some worsening of the right upper lobe pulmonary infiltrate compatible with pneumonia. There are small better pleural effusion. NG tube is in a good location. The patient remains on a combination of IV Rocephin 2 g every 24 hours and IV vancomycin. Antibiotics have been modified as the patient was found to have Klebsiella pneumoniae in the sputum. She is lethargic. At times she arouses yet she is not fully interactive at this point in time. Platelet counts are remaining low. No other events otherwise for now. Yet again, the patient was found to be hypothermic and the patient was given external warming. Temperature dropped as low as 96.5. On today's evaluation of 07/28/2018, the patient is still not responsive. She responds only to deep painful stimulation. I took her off the BiPAP. The patient had some upper airway secretion. Deep tracheal suctioning was done and mucus was aspirated. The patient has a weak cough. Were able to restore patency of her upper airway. Currently she is a 40% Ventimask pH is starting her tube feeds. She is on a combination of IV Rocephin and vancomycin To the patient had aspirated and the patient developed Pneumonia in Her Sputum. She Is Receiving Enteral Feeding for Nutritional Support and She Is on Goal for Now. Note That This Morning She Was on a BiPAP Pressure of 12/5 Cm of Water and She Was Taken off the BiPAP. She Is Producing Stools. She Is Starting the Enteral Feeding. She Is Not Developing Any Abdominal Distention. Hemoglobin from today is 6.9 and the patient will be receiving a unit of packed RBC. No pressors. She was given a dose of Lasix yesterday. She is a negative fluid balance. We'll continue IV Lasix for another 24 hours. Chest x-ray from today shows stable about pulmonary infiltrates more so on the right and the patient is stable bilateral pleural effusions. Unfortunately, she is extremely lethargic and weak and she does have underlying developmental delay which is obviously affecting our ability at provide this patient if all and fast recovery. On 07/29/2018On 11 essentially the same and stable. Patient is on a 40% Ventimask. Mentation is not much improved. She'll occasionally reacts to painful stimulation and repeated stimulation verbally. Otherwise she is lethargic and sleeping most of the time. She is tolerating his tube feeds. No signs of any respiratory distress. Chest x-ray findings and essentially stable. The patient has bilateral pleural effusion and extensive consolidation of the right lung and limited consolidation of the left lung. The patient has been negative fluid balance while being on Lasix 40 mg IV push every 12 hours. Antibiotic coverage includes accommodation Rocephin and vancomycin. No agitation. No restlessness. No aspiration. No bowel movement for the past 24 hours and the patient is on lactulose 20 MO's once a day. No abdominal distention. Caregivers at the bedside. I think the prognosis essentially for yet do not think there is any intervention for the the caregivers and the nurses will be taking care of him to make suggestions about her CODE STATUS. I have explained to them on multiple occasions that this may not be a on a favorable outcome. On 07/30/2018 I'm seeing this patient for a follow-up. On today's evaluation, the patient is awake. She is opening her eyes. At times she is following commands. Despite this limited neurologic improvement, the patient is still very weak. She has a weak cough. Unable to take any oral feeds. The patient has an NG tube in place and her tube feeds are at goal. She is being diuresed with IV Lasix and she is negative fluid balance chest x-ray shows improvement of the right-sided pulmonary infiltrates. There is still some bilateral pleural effusions in the lung bases. She remains on accommodation Rocephin and Zithromax. She is calm and comfortable. A repeat abdominal film was done and there was evidence of normal bowel gas pattern. No significant fecal material is present. No fecal impaction. Based on this, I kept a lactulose and I kept the enteral feeding for nutritional support. No abdominal pain. No abdominal distention. No fever. No chills. White cell count of 5.6. Function is stable. No aspiration. No other complaints otherwise for now. On 07/31/2018, we see the patient to be again more awake and interactive compared to yesterday. The patient had an episode where she had some bleeding from her right nostril. This was controlled locally. She has an NG tube in the left nostril pH is awaiting her tube feeds. No significant rest or distress pH is currently on 2 L of oxygen by nasal cannula. She is being diuresed IV Lasix. She is on a combination of Rocephin and vancomycin. She is arousable. She is awake. Her cough is weak. However overall, feeling better. Meeting was done with a public guardian. The public guardian has consented for a PEG tube insertion and for that reason a GI consultation was obtained. White cell count is at 7.0. The rest of the electrodes are all within normal limits. She is getting slightly alkalotic along with her diuretics. The patient is seen today 08/01/2018 in follow-up in the intensive care unit. She is continued to be more and more awake and alert. She is more verbal. She is following simple commands. She is maintaining O2 saturations in the mid to upper 90s on 2 L/m per nasal cannula. She's currently afebrile. Hemodynamically stable. Regular rhythm. White count 6.5. Hemoglobin 7.7. Creatinine 0.65. She remains on albuterol nebulized treatments along with Pulmicort, she continues on vancomycin. Diuresing well with Lasix 40 mg every 12 hours. Remains in a negative balance. The plan is for PEG tube insertion. On 07/25/2018 patient seen in follow-up on medical surgical floor. Patient has been transferred out of the intensive care unit today, she is awake and alert, she is sitting up in the recliner, in no acute distress. She is more awake, patient is answering some simple questions, she is in good spirits, he denies any distress, lung sounds are positive for a few scattered rhonchi. No wheezing. Room air pulse ox is 93%, afebrile. Today's chest x-ray has been reviewed by Dr. Lilly, and showed parenchymal changes with persistent small bilateral pleural effusions and persistent right midlung and left basilar acute infiltrate and/or atelectasis. There has been improvement in aeration of the right base, and the right mid lung infiltrate. Urine culture revealed Klebsiella pneumonia. Patient has been treated with a combination of ceftriaxone and vancomycin, currently just on vancomycin. Peg tube has been inserted, and patient is receiving tube feedings. These labs have been reviewed , with Bentyl, 6.2, hemoglobin is 8.2, sodium is 137, potassium 3.9, chloride is 95, CO2 is 40, B1 is 24 creatinine 0.63. Objective - Vital Signs Vital signs: Vital Signs Temp 97.8 F 08/02/18 14:16 Pulse 72 08/02/18 15:58 Resp 16 08/02/18 14:16 BP 129/72 08/02/18 14:16 Pulse Ox 93 L 08/02/18 15:48 Intake & Output 08/01/18 08/02/18 08/02/18 18:59 06:59 18:59 Intake Total 830 310 310 Output Total 647 1090 851 Balance 578 -746 -784 Weight 58.5 kg 58.5 kg Intake: IV 830 310 310 .9 kvo 200 150 20 Dextrose 5%-0.9% NaCl 1, 130 160 40 000 ml @ 20 mls/hr IV . Q24H DEANNA Rx#:[id number] Vancomycin 750 mg In 250 250 Sodium Chloride 0.9% 250 ml @ 125 mls/hr IVPB Q16H DEANNA Rx#:[id number] Tube Feeding 0 0 Output: Urine 645 1090 850 Stool 2 1 Other: Voiding Method Indwelling Catheter Indwelling Catheter Indwelling Catheter # Bowel Movements 1 - Exam GENERAL EXAM: Awake and alert, intermittently somnolent, 78-year-old female, frail, In the recliner, in no acute distress, patient is somewhat slow to respond, responds appropriately to simple questioning, comfortable in no apparent distress. Patient has kyphoscoliosis of the spine HEAD: Normocephalic/atraumatic. EYES: Normal reaction of pupils, equal size. Conjunctiva pink, sclera white. NOSE: Clear with pink turbinates. THROAT: No erythema or exudates. NECK: No masses, no JVD, no thyroid enlargement, no adenopathy. CHEST: No chest wall deformity. Symmetrical expansion. LUNGS: Equal air entry with a few scattered rhonchi, but no distress, patient is currently on room air CVS: Regular rate and rhythm, normal S1 and S2, no gallops, no murmurs, no rubs ABDOMEN: Soft, nontender. No hepatosplenomegaly, normal bowel sounds, no guarding or rigidity. PEG tube is in place, insertion site is clean dry and intact. tube feedings infusing EXTREMITIES: No clubbing, no edema, no cyanosis, 2+ pulses and upper and lower extremities. MUSCULOSKELETAL: Muscle strength and tone normal. SPINE: No scoliosis or deformity SKIN: No rashes CENTRAL NERVOUS SYSTEM: Alert and oriented -2. No focal deficits, tone is normal in all 4 extremities. PSYCHIATRIC: Alert and oriented -2. Appropriate affect. Intact judgment and insight. - Labs CBC & Chem 7: 08/02/18 04:20 08/02/18 04:20 Labs: Abnormal Lab Results - Last 24 Hours (Table) 08/01/18 08/02/18 08/02/18 Range/Units 23:15 04:20 04:20 RBC 2.87 L (3.80-5.40) m/uL Hgb 8.2 L (11.4-16.0) gm/dL Hct 25.8 L (34.0-46.0) % RDW 18.3 H (11.5-15.5) % Chloride 95 L (98-107) mmol/L Carbon Dioxide 40 H (22-30) mmol/L BUN 24 H (7-17) mg/dL POC Glucose (mg/dL) 102 H (75-99) mg/dL 08/02/18 Range/Units 13:03 RBC (3.80-5.40) m/uL Hgb (11.4-16.0) gm/dL Hct (34.0-46.0) % RDW (11.5-15.5) % Chloride (98-107) mmol/L Carbon Dioxide (22-30) mmol/L BUN (7-17) mg/dL POC Glucose (mg/dL) 101 H (75-99) mg/dL Assessment and Plan Plan: Assessment: 1 acute sepsis secondary to an extensive right lung pneumonia, addition to bilateral pleural effusions. We have grown Klebsiella pneumoniae from the patient's sputum. Currently on vancomycin. The patient still stable on 2 L of oxygen by nasal cannula. No signs of any respiratory distress for now. 2 acute hypotension secondary to above, recovered and the patient is currently maintaining her on blood pressure which is covered with broad-spectrum antibiotics. 3 acute leukocytosis secondary to above recovered 4 acute lactic acidosis secondary to above 5 hypothermia with altered mentation secondary to above, recovered, with subsequent recurrence in the lower upper trend the patient has been placed on external warming. 6 chronic anemia 7 seizure disorder, will be switched to liquid Depakote 8 developmental delay/Parkinson's disease/dementia/schizoaffective disorder 9 moderate degree of aortic stenosis with moderate pulmonary hypertension based on recent echocardiogram and the patient also has a mitral valve prolapse 10 difficulty with mobility and gait and the patient requires assistance with activities of daily life and 24/ 7 care 11 hypertension 12 hyperlipidemia 13 hypothyroidism 14 mild thrombocytopenia, improving 15 extensive fecal impaction him a post-enema, post lactulose treatment, post mechanical disimpaction. The patient is receiving laxatives and the patient was started on enteral feeding for nutritional support Plan: We'll continue with current antibiotic coverage, patient clinically is stable, he is on room air, no worsening shortness of breath, today's chest x-ray shows improvement in aeration of the right base, and appearance of the right mid and lower lobe infiltrates. Continue nebulized dilators, maintain aspiration precautions, PEG tube is in, patient tolerating tube feedings. I performed a history & physical examination of the patient and discussed their management with my nurse practitioner, Elsy De Guzman. I reviewed the nurse practitioner's note and agree with the documented findings and plan of care. Lung sounds are positive for a few scattered rhonchi. The findings and the impression was discussed with the patient. I attest to the documentation by the nurse practitioner. Time with Patient: Less than 30
[2018-08-02 18:05] LABS: Glucose,Whole Blood 114 mg/dL (75-99)
[2018-08-03 01:02] LABS: Glucose,Whole Blood 102 mg/dL (75-99)
[2018-08-03] MEDS: DEXTROSE 5%-0.9% NACL 1,000 ML IV SCH (03:42)
[2018-08-03] MEDS: LEVOTHYROXINE 125 MCG TAB PO SCH (05:07)
[2018-08-03 06:12] VITALS: BP 121/75; TEMP 97.5
[2018-08-03] MEDS: BUDESONIDE 0.25 MG/2 ML NEBU INHALATION SCH (07:13)
[2018-08-03] MEDS: ALBUTEROL NEBULIZED 2.5 MG/3 ML INHALATION SCH ×2 (07:13→11:29)
[2018-08-03] MEDS: PANTOPRAZOLE 40 MG/10 ML VIAL IV SCH (08:22)
[2018-08-03] MEDS: ATORVASTATIN 10 MG TAB PO SCH (08:22)
[2018-08-03] MEDS: ASPIRIN 81 MG PO SCH (08:22)
[2018-08-03] MEDS: FERROUS SULFATE ORAL ELIXIR 300 MG/5 ML CUP PO SCH (08:22)
[2018-08-03] MEDS: BENZTROPINE MESYLATE 0.5 MG TAB PO SCH (08:22)
[2018-08-03] MEDS: risperiDONE 1 MG TAB PO SCH (08:22)
[2018-08-03] MEDS: LACTULOSE 20 GM/30 ML CUP PO SCH (08:22)
[2018-08-03] MEDS: VALPROIC ACID ORAL SOLN 250 MG/5 ML CUP NG-TUBE SCH (08:23)
[2018-08-03] MEDS ORDERED: FUROSEMIDE 40 MG TAB PO SCH (09:00)
[2018-08-03 11:39] VITALS: PULSE 62
[2018-08-03 12:46] LABS: Glucose,Whole Blood 141 mg/dL (75-99)
--- NOTE | 2018-08-03 14:44 | P.PN ---
Subjective Progress Note Date: 08/03/18 Principal diagnosis: Kew to sepsis secondary to extensive right lung pneumonia and bilateral pleural effusions This 78-year-old female patient was coming into the hospital because of altered mental status and respiratory failure. The patient was found to be by the caregivers to have difficulties with generalized weakness in her mentation seems to be altered specially over the past 24-48 hours prior to coming to the hospital. She had also difficulties and mobility and she was heart to respond. At that point the caregiver decided to bring this patient back to the hospital for further evaluation. The patient is known to me. I took care of her back in November 2018 for complications of acute hypoxic respiratory failure and acute bilateral aspiration pneumonia. Back then the patient was she is appropriate and the patient recovered and the patient was discharged home. Note that the patient at that time also had a UTI secondary to staphylococcal infection. Patient was brought to the ED for the above-mentioned reasons. Apparently there was a history of productive cough. The patient was found initially to be severely hypothermic. An ultrasound of the heart was done and it showed reduced LV filling pressures secondary to intravascular volume depletion/dehydration. There were 3 evaluation was done and the patient was found to have leukocytosis with a white cell count of 31. Her lactic acid level was at 4.0. Influenza screen was negative. Urinalysis was unremarkable. Chest x-ray showed extensive right lung pulmonary for treated consistent with an underlying pneumonia. The patient was intubated and placed on mechanical ventilator. The troponin catheter was inserted and following that the patient was sent to the ICU. An x-ray of the abdomen was also done that showed extensive moderate to severe fecal impaction within the large bowel. According to the caregiver, the patient was complaining of some abdominal distention big abdominal pain. Currently, the patient is in intensive care unit. The patient is sedated with Diprivan and she is calm and comfortable. She is on a mechanical ventilator and the patient is an assist-control mode rate of 12, tidal volume of 400 with FiO2 of 35% and a PEEP of 5. She is on pressors and she is running on levo fed at 0.03 mics per KG per minute. She is also on propofol running at 5 g per KG per minute. On today's evaluation of 07/26/2018 I'm seeing this patient for a follow-up. The patient was intubated for an extensive right lung pneumonia. The patient remains intubated on a mechanical ventilator. This morning the patient was an FiO2 of 35% with a PEEP of 5 and tidal volume of 400 with rate of 12. Follow- up chest x-ray showed improvement in the right lung pulmonary infiltrate. He was admitted location. The patient was taken off sedation. The patient a decent cough. No symptoms and orotracheal secretions. Based on that, we will give the patient is point is breathing trial with a pressure support of 5 and a PEEP of 5. After 1 hour of spontaneous breathing trial, the patient had a blood. That showed a pH of 7.39 with a pCO2 of 39 and pO2 of 57. Based on that , I extubated this patient to a Ventimask. The patient is doing well. Noted orogastric tube was removed and the patient was given a NG tube. She was having extensive amount of fecal impaction. She underwent manual disimpaction. The patient was also given lactulose to facilitate bowel activity. The follow -up chest x-ray from today still showing fecal stasis impaction still present. The patient has not been fed yet. The abdomen is nondistended. The patient is afebrile. White cell count is at 9.5. The antibiotic coverage includes a combination of Rocephin and vancomycin as the patient was found to have Klebsiella pneumonia in the sputum. He also noted a drop in the platelet counts for that reason the Zosyn was discontinued. I also took an opportunity to discontinue the subcu heparin considering related thrombocytopenia. The patient is currently wearing SCDs. She is awake. She is following some simple commands to the caregivers. On today's evaluation of 07/27/2018, I'm seeing this patient for a follow-up. As mentioned, the patient was extubated yesterday and she was on a Ventimask 40 % throughout the night. This morning she was still on 40% Ventimask. She had a congested cough. Rest or secretions were mainly in the upper airway and the lower lungs were essentially more clear. Based on that, we attempted the tracheal suctioning. Subsequently the patient became more short of breath and she had to be placed on BiPAP at a pressure of 12/5 centimeters of water with an FiO2 of 100%. The patient is looking better while on the BiPAP. She started an NG tube in place. She had had a bowel movement that the patient is being given laxatives. She'll feeds will be started today at a very low rate. No fever. No chills. The chest x-ray from today shows some worsening of the right upper lobe pulmonary infiltrate compatible with pneumonia. There are small better pleural effusion. NG tube is in a good location. The patient remains on a combination of IV Rocephin 2 g every 24 hours and IV vancomycin. Antibiotics have been modified as the patient was found to have Klebsiella pneumoniae in the sputum. She is lethargic. At times she arouses yet she is not fully interactive at this point in time. Platelet counts are remaining low. No other events otherwise for now. Yet again, the patient was found to be hypothermic and the patient was given external warming. Temperature dropped as low as 96.5. On today's evaluation of 07/28/2018, the patient is still not responsive. She responds only to deep painful stimulation. I took her off the BiPAP. The patient had some upper airway secretion. Deep tracheal suctioning was done and mucus was aspirated. The patient has a weak cough. Were able to restore patency of her upper airway. Currently she is a 40% Ventimask pH is starting her tube feeds. She is on a combination of IV Rocephin and vancomycin To the patient had aspirated and the patient developed Pneumonia in Her Sputum. She Is Receiving Enteral Feeding for Nutritional Support and She Is on Goal for Now. Note That This Morning She Was on a BiPAP Pressure of 12/5 Cm of Water and She Was Taken off the BiPAP. She Is Producing Stools. She Is Starting the Enteral Feeding. She Is Not Developing Any Abdominal Distention. Hemoglobin from today is 6.9 and the patient will be receiving a unit of packed RBC. No pressors. She was given a dose of Lasix yesterday. She is a negative fluid balance. We'll continue IV Lasix for another 24 hours. Chest x-ray from today shows stable about pulmonary infiltrates more so on the right and the patient is stable bilateral pleural effusions. Unfortunately, she is extremely lethargic and weak and she does have underlying developmental delay which is obviously affecting our ability at provide this patient if all and fast recovery. On 07/29/2018On 11 essentially the same and stable. Patient is on a 40% Ventimask. Mentation is not much improved. She'll occasionally reacts to painful stimulation and repeated stimulation verbally. Otherwise she is lethargic and sleeping most of the time. She is tolerating his tube feeds. No signs of any respiratory distress. Chest x-ray findings and essentially stable. The patient has bilateral pleural effusion and extensive consolidation of the right lung and limited consolidation of the left lung. The patient has been negative fluid balance while being on Lasix 40 mg IV push every 12 hours. Antibiotic coverage includes accommodation Rocephin and vancomycin. No agitation. No restlessness. No aspiration. No bowel movement for the past 24 hours and the patient is on lactulose 20 MO's once a day. No abdominal distention. Caregivers at the bedside. I think the prognosis essentially for yet do not think there is any intervention for the the caregivers and the nurses will be taking care of him to make suggestions about her CODE STATUS. I have explained to them on multiple occasions that this may not be a on a favorable outcome. On 07/30/2018 I'm seeing this patient for a follow-up. On today's evaluation, the patient is awake. She is opening her eyes. At times she is following commands. Despite this limited neurologic improvement, the patient is still very weak. She has a weak cough. Unable to take any oral feeds. The patient has an NG tube in place and her tube feeds are at goal. She is being diuresed with IV Lasix and she is negative fluid balance chest x-ray shows improvement of the right-sided pulmonary infiltrates. There is still some bilateral pleural effusions in the lung bases. She remains on accommodation Rocephin and Zithromax. She is calm and comfortable. A repeat abdominal film was done and there was evidence of normal bowel gas pattern. No significant fecal material is present. No fecal impaction. Based on this, I kept a lactulose and I kept the enteral feeding for nutritional support. No abdominal pain. No abdominal distention. No fever. No chills. White cell count of 5.6. Function is stable. No aspiration. No other complaints otherwise for now. On 07/31/2018, we see the patient to be again more awake and interactive compared to yesterday. The patient had an episode where she had some bleeding from her right nostril. This was controlled locally. She has an NG tube in the left nostril pH is awaiting her tube feeds. No significant rest or distress pH is currently on 2 L of oxygen by nasal cannula. She is being diuresed IV Lasix. She is on a combination of Rocephin and vancomycin. She is arousable. She is awake. Her cough is weak. However overall, feeling better. Meeting was done with a public guardian. The public guardian has consented for a PEG tube insertion and for that reason a GI consultation was obtained. White cell count is at 7.0. The rest of the electrodes are all within normal limits. She is getting slightly alkalotic along with her diuretics. The patient is seen today 08/01/2018 in follow-up in the intensive care unit. She is continued to be more and more awake and alert. She is more verbal. She is following simple commands. She is maintaining O2 saturations in the mid to upper 90s on 2 L/m per nasal cannula. She's currently afebrile. Hemodynamically stable. Regular rhythm. White count 6.5. Hemoglobin 7.7. Creatinine 0.65. She remains on albuterol nebulized treatments along with Pulmicort, she continues on vancomycin. Diuresing well with Lasix 40 mg every 12 hours. Remains in a negative balance. The plan is for PEG tube insertion. On 07/25/2018 patient seen in follow-up on medical surgical floor. Patient has been transferred out of the intensive care unit today, she is awake and alert, she is sitting up in the recliner, in no acute distress. She is more awake, patient is answering some simple questions, she is in good spirits, he denies any distress, lung sounds are positive for a few scattered rhonchi. No wheezing. Room air pulse ox is 93%, afebrile. Today's chest x-ray has been reviewed by Dr. Lilly, and showed parenchymal changes with persistent small bilateral pleural effusions and persistent right midlung and left basilar acute infiltrate and/or atelectasis. There has been improvement in aeration of the right base, and the right mid lung infiltrate. Urine culture revealed Klebsiella pneumonia. Patient has been treated with a combination of ceftriaxone and vancomycin, currently just on vancomycin. Peg tube has been inserted, and patient is receiving tube feedings. These labs have been reviewed , with Bentyl, 6.2, hemoglobin is 8.2, sodium is 137, potassium 3.9, chloride is 95, CO2 is 40, B1 is 24 creatinine 0.63. 08/03/2018 patient seen in follow-up in the surgical floor. She is resting comfortably in bed. No acute distress, no difficulty breathing, she is on room air, maintaining pulse ox above 92%, no fever or chills, lung sounds are clear. Sputum culture was positive for Klebsiella pneumonia, patient has been treated with a combination of vancomycin and ceftriaxone in the initial stages, currently just on vancomycin. PEG tube is in place, and tube feedings and infusing, patient is tolerating them well. Clinically stable, patient is being discharged home in the care of her caregiver. Objective - Vital Signs Vital signs: Vital Signs Temp 97.5 F L 08/03/18 06:11 Pulse 62 08/03/18 11:38 Resp 16 08/03/18 06:11 BP 121/75 08/03/18 06:11 Pulse Ox 95 08/03/18 07:16 Intake & Output 08/02/18 08/03/18 08/03/18 18:59 06:59 18:59 Intake Total 340 90 100 Output Total 851 Balance -511 90 100 Weight 58.5 kg 52.5 kg Intake: IV 310 .9 kvo 20 Dextrose 5%-0.9% NaCl 1, 40 000 ml @ 20 mls/hr IV . Q24H DEANNA Rx#:[id number] Vancomycin 750 mg In 250 Sodium Chloride 0.9% 250 ml @ 125 mls/hr IVPB Q16H DEANNA Rx#:[id number] Oral 0 Tube Feeding 30 90 100 Output: Urine 850 Stool 1 Other: Voiding Method Indwelling Catheter # Voids 0 1 # Bowel Movements 0 - Exam GENERAL EXAM: Awake and alert, intermittently somnolent, 78-year-old female, frail, In the recliner, in no acute distress, patient is somewhat slow to respond, responds appropriately to simple questioning, comfortable in no apparent distress. Patient has kyphoscoliosis of the spine HEAD: Normocephalic/atraumatic. EYES: Normal reaction of pupils, equal size. Conjunctiva pink, sclera white. NOSE: Clear with pink turbinates. THROAT: No erythema or exudates. NECK: No masses, no JVD, no thyroid enlargement, no adenopathy. CHEST: No chest wall deformity. Symmetrical expansion. LUNGS: Equal air entry with a few scattered rhonchi, but no distress, patient is currently on room air CVS: Regular rate and rhythm, normal S1 and S2, no gallops, no murmurs, no rubs ABDOMEN: Soft, nontender. No hepatosplenomegaly, normal bowel sounds, no guarding or rigidity. PEG tube is in place, insertion site is clean dry and intact. tube feedings infusing EXTREMITIES: No clubbing, no edema, no cyanosis, 2+ pulses and upper and lower extremities. MUSCULOSKELETAL: Muscle strength and tone normal. SPINE: No scoliosis or deformity SKIN: No rashes CENTRAL NERVOUS SYSTEM: Alert and oriented -2. No focal deficits, tone is normal in all 4 extremities. PSYCHIATRIC: Alert and oriented -2. Appropriate affect. Intact judgment and insight. - Labs CBC & Chem 7: 08/02/18 04:20 08/02/18 04:20 Labs: Abnormal Lab Results - Last 24 Hours (Table) 08/02/18 08/03/18 08/03/18 Range/Units 18:03 00:59 12:42 POC Glucose (mg/dL) 114 H 102 H 141 H (75-99) mg/dL Assessment and Plan Plan: Assessment: 1 acute sepsis secondary to an extensive right lung pneumonia, addition to bilateral pleural effusions. We have grown Klebsiella pneumoniae from the patient's sputum. Currently on vancomycin. The patient still stable on 2 L of oxygen by nasal cannula. No signs of any respiratory distress for now. 2 acute hypotension secondary to above, recovered and the patient is currently maintaining her on blood pressure which is covered with broad-spectrum antibiotics. 3 acute leukocytosis secondary to above recovered 4 acute lactic acidosis secondary to above 5 hypothermia with altered mentation secondary to above, recovered, with subsequent recurrence in the lower upper trend the patient has been placed on external warming. 6 chronic anemia 7 seizure disorder, will be switched to liquid Depakote 8 developmental delay/Parkinson's disease/dementia/schizoaffective disorder 9 moderate degree of aortic stenosis with moderate pulmonary hypertension based on recent echocardiogram and the patient also has a mitral valve prolapse 10 difficulty with mobility and gait and the patient requires assistance with activities of daily life and 24/ 7 care 11 hypertension 12 hyperlipidemia 13 hypothyroidism 14 mild thrombocytopenia, improving 15 extensive fecal impaction him a post-enema, post lactulose treatment, post mechanical disimpaction. The patient is receiving laxatives and the patient was started on enteral feeding for nutritional support Plan: She is doing extremely well, she is awake and alert, she is answering simple questions, vital signs are stable, no cough, no chest congestion, she is tolerating tube feedings, no fever or chills, she has been treated for Klebsiella pneumonia pneumonia, improved, from pulmonary perspective she stable for discharge home in the care of her caregiver today. I performed a history & physical examination of the patient and discussed their management with my nurse practitioner, Elsy De Guzman. I reviewed the nurse practitioner's note and agree with the documented findings and plan of care. Lung sounds are positive for a few scattered rhonchi. The findings and the impression was discussed with the patient. I attest to the documentation by the nurse practitioner. Time with Patient: Less than 30
--- NOTE | 2018-08-03 15:34 | FL ---
EXAMINATION TYPE: FL barium swallow w video DATE OF EXAM: 08/03/2018 MODIFIED SWALLOW / DEGLUTITION STUDY CLINICAL HISTORY: Dysphagia. TECHNIQUE: Deglutition study is performed utilizing thin liquid barium, honey and nectar thick liqui d barium, barium thick applesauce, and barium coated cracker. No images submitted COMPARISON: None. FINDINGS: There was penetration which was transient with nectar. There was aspiration with thin bariu m. IMPRESSION: See above
--- NOTE | 2018-08-07 12:32 | P.DS ---
Providers Date of admission: 07/24/18 17:14 Expected date of discharge: 08/03/18 Attending physician: Wilmer Dunn Consults: 07/24/18 17:14 Consult Physician Routine Consulting Provider: Lavon Childers Consult Reason/Comments: septic shock Do you want consulting provider notified?: Already Contacted 07/24/18 21:16 Consult Physician Stat Consulting Provider: Lavon Childers Consult Reason/Comments: intensive care management Do you want consulting provider notified?: Already Contacted 07/25/18 09:46 Consult Physician Routine Consulting Provider: Wilmer Wei Consult Reason/Comments: Pneumonia, Multiple open wounds Do you want consulting provider notified?: Yes Primary care physician: Tracey Means [facility] Course: 78-year-old female who has been seen Dr. Means lately who was in the hospital not too long ago with sepsis and altered mental status and sepsis seems like she had urinary tract infection from cystitis with positive blood culture for staph infection. Patient had an episode of acute hypoxic respiratory failure was on BiPAP at the time and have acute lactic acidosis with severe hypokalemia and acute kidney injury also had pancytopenia due to sepsis is known to have development delay and history of schizoaffective disorders. Patient left the hospital on June 29. Patient found by the caregiver to have significant alter mental status with decline in mobility and her respond. Not been able to transfer herself patient brought to the emergency department [facility] via EMS was seen and evaluated she was hypothermic, hypoxic, having significant shortness of breath mildly elevated troponin and blood pressure declined significantly with significant elevated lactic acid. Patient was intubated and admitted to the intensive care unit afterward for the above problem. 07/25/2018: Patient is more stable hemodynamically, blood pressure is much better controlled, still on vasopressor, still intubated on mechanical ventilation but temperature has improved and her vitals are much better respond to the current dose of IV antibiotic between Vanco and Zosyn. The caregiver was informed that if patient had problem with aspiration and possibility of dysphagia might require PEG tube something will be communicating with the legal guardian for possibility after she is extubated. 07/26: Patient remains intubated and on mechanical ventilation with tidal volume 400, FiO2 35 and PEEP of 5. She has been off levo fed since 745 last evening. She is status post Dulcolax suppository, lactulose and soapsuds enema was given this morning. She has had 3 bowel movements and was disimpacted yesterday. Abdominal x-ray this morning reveals ET tube may need to be pulled back slightly. Patchy infiltrate throughout the right lung persist. Small bilateral pleural effusions and additional left basilar atelectasis and/or consolidation. Suspect background of COPD. Nonobstructive bowel gas pattern. No free air. Continued moderate to large stool burden suggesting constipation. Patient has been seen by Dr. Wei for antibiotic recommendations and patient continues on vancomycin and Zosyn. Multiple decubitus ulcers have been addressed by Dr. Wei. Temperature has improved and is running normal at this point. Heart rate in the 60s and 70s, blood pressure 110/52. White count 9.4, hemoglobin 7.2, platelet count is 63. Dr. Wei's change Zosyn to ceftriaxone. Sputum cultures positive for Klebsiella, pansensitive. Blood culture showing no growth. 07/27: Patient was extubated yesterday afternoon. She remains off vasopressors. She did have a lot of liquid stools last evening. Urine output is at 70 mL per hour. She is currently not on sedation and not responsive. Anticipate that to feedings will be started today as NG tube remains in place. She is currently on Ventimask at FiO2 of 55 pulse oxing 95%. Temperature remains on the lower side at 96.5, heart rates in the 80s and 90s, respirations in the 20s , blood pressure 120/60. White count is normalized, hemoglobin 7.8 and platelet count 78. Potassium is 3.0 and replaced. Repeat chest x-ray shows worsening right upper lobe infiltrate can be compatible with pneumonia. Small bilateral pleural effusions. She is currently on IV antibiotics with ceftriaxone and vancomycin. Caregiver is at the bedside and has been updated. 07/28: Patient was on a Ventimask in the evening where she began to show some fatigue. Patient was transitioned to a BiPAP which she is tolerating at this time. Patient has not had any more stools since yesterday. Urine output is 70 ML's per hour. Patient is arousable to deep pain. Patient does not follow commands withdrawal from pain but does not open eyes. Telemetry shows normal sinus rhythm. WBC 5.4, hemoglobin 6.9, platelets 58, sodium 137, potassium 3.9 , BUN 7 creatinine 0.63, magnesium 1.9. 07/29: Patient is currently on a Ventimask. Family and caregiver state that the patient has been more alert and able to open eyes with verbal stimuli and attempting to converse. Upon examination patient is unresponsive to verbal stimuli not opening eyes to painful stimuli. Patient remained afebrile. She is tolerating feedings with no residual. Telemetry shows normal sinus rhythm. Urine and blood cultures are negative. Sputum is showing Klebsiella pneumoniae. 07/30: Patient is tolerating tube feedings. She remains mostly unresponsive but he reacts occasionally to painful stimuli. She is continued on Rocephin and vancomycin. She has been afebrile, currently O2 saturation 95% on 2 L nasal cannula, blood pressure 122/53, heart rate running in the 70s and 80s. White count is normal, hemoglobin 8.9, platelet count 85. CO2 39, creatinine 0.72. Capillary blood glucose running between 108 and 112. Repeat chest x-ray shows improving right perihilar infiltrate. Small bilateral pleural effusions. Caregiver is at the bedside and states that the patient was awake and talking for about an hour this morning. Patient is currently unresponsive. 07/31: Patient is slightly more awake today. She is currently on Rocephin and vancomycin. She is also continued on IV Lasix 40 mg every 12 hours. Urine output has been adequate. Met with public guardian and she will obtain DO NOT RESUSCITATE orders from Court. Consent has been given for PEG tube insertion and GI consultation has been added. Hemoglobin is 8.6, CO2 40, sodium 135, potassium 3.9, chloride 93, creatinine 0.76. Capillary blood glucose running between 99 and 120. 08/01: Patient remains in the intensive care unit. Patient is awake this morning and able to answer questions. She is scheduled for PEG tube placement today. Discharge plan has changed to returning home which we anticipate will happen on Monday. She has complete her course of Rocephin. She is on vancomycin pharmacy is dosing. Patient has been afebrile, blood pressure 120/66 , pulse ox 95 200% on 2 L nasal cannula, heart rate running in the 70s. White count is normal, hemoglobin 7.7, platelet count 111. Capillary blood glucose between 106 and 116, creatinine 0.65. 08/02: Patient remains in the intensive care unit awaiting a bed on the [facility] floor. PEG tube was placed yesterday. Patient to be on tube feedings at the time of discharge. Plan is for discharge home tomorrow if arrangements are being made with case management for air mattress due to her decubitus ulcers, stage II and also tube feedings. She has been afebrile, heart rate in the 70s and 80s, blood pressure 125/66, pulse ox 96% on 1 L nasal cannula. White count 6.2, hemoglobin 8.2, platelets 151, creatinine 0.61. Blood sugars run between 87 and 102. Patient is awake and alert and able to answer simple questions. Brunson will be removed today. 08/03: Patient has been afebrile, heart rate running in the 50s to 80s, blood pressure 121/75, pulse ox 95% on room air. Patient has been on PEG tube feedings. Speech therapy will perform modified barium swallow today as patient' s mental status is much improved. Modified barium swallow revealed penetration which was transected with nectar. Aspiration with thin barium. Patient will be discharged home today in stable condition. Discharge diagnoses: 1 acute hypoxic respiratory failure secondary to aspiration pneumonia with severe sepsis, septic shock. 2 sepsis with septic shock from Klebsiella aspiration pneumonia, UTI and recent sepsis with staph infection previously. 3 severe right-sided pneumonia 4 dysphagia 5 severe lactic acidosis 6 hypothyroidism 7 hyperlipidemia 8 schizoaffective disorder 9 COPD 10 iron deficiency anemia, anemia of chronic disease. 11 Fecal impaction contributing to aspiration. 12. Thrombocytopenia possibly related to Zosyn or from sepsis. 13. Metabolic encephalopathy, possible anoxic encephalopathy. 14. Severe protein calorie malnutrition Discharge plan: Home on Monday with caregivers and [facility] Impression and plan of care have been directed as dictated by the signing physician. Dominique Carpio nurse practitioner acting as scribe for signing physician. Patient Condition at Discharge: Good Plan - Discharge Summary New Discharge Prescriptions: New Lactulose [Cephulac] 20 gm PO DAILY PRN #400 ml PRN Reason: Constipation Valproic Acid Oral Soln [Depakene Syrup] 250 mg NG-TUBE Q12HR #600 ml Continue risperiDONE [RisperDAL] 1 mg PO BID Benztropine Mesylate [Cogentin] 0.5 mg PO BID Aspirin 81 mg PO DAILY Albuterol Nebulized [Ventolin Nebulized] 1 applic INHALATION RT-QID Ferrous Sulfate [Iron] 325 mg PO BID Budesonide [Pulmicort] 0.25 mg INHALATION RT-BID Levothyroxine Sodium [Synthroid] 125 mcg PO DAILY Cranberry Fruit Extract [Cranberry] 200 mg PO DAILY Atorvastatin [Lipitor] 5 mg PO DAILY Naproxen Sodium [Aleve] 220 mg PO DAILY PRN PRN Reason: Pain Acetaminophen Tab [Tylenol] 500 mg PO Q6H PRN PRN Reason: Pain Meloxicam 7.5 mg PO DAILY Furosemide [Lasix] 20 mg PO DAILY Discontinued Divalproex Sodium 250 mg PO BID Discharge Medication List Albuterol Nebulized [Ventolin Nebulized] 1 applic INHALATION RT-QID 09/09/14 [ History] Aspirin 81 mg PO DAILY 09/09/14 [History] Benztropine Mesylate [Cogentin] 0.5 mg PO BID 09/09/14 [History] risperiDONE [RisperDAL] 1 mg PO BID 09/09/14 [History] Atorvastatin [Lipitor] 5 mg PO DAILY 06/16/18 [History] Budesonide [Pulmicort] 0.25 mg INHALATION RT-BID 06/16/18 [History] Cranberry Fruit Extract [Cranberry] 200 mg PO DAILY 06/16/18 [History] Ferrous Sulfate [Iron] 325 mg PO BID 06/16/18 [History] Levothyroxine Sodium [Synthroid] 125 mcg PO DAILY 06/16/18 [History] Acetaminophen Tab [Tylenol] 500 mg PO Q6H PRN 07/24/18 [History] Furosemide [Lasix] 20 mg PO DAILY 07/24/18 [History] Meloxicam 7.5 mg PO DAILY 07/24/18 [History] Naproxen Sodium [Aleve] 220 mg PO DAILY PRN 07/24/18 [History] Lactulose [Cephulac] 20 gm PO DAILY PRN #400 ml 08/03/18 [Rx] Valproic Acid Oral Soln [Depakene Syrup] 250 mg NG-TUBE Q12HR #600 ml 08/03/18 [ Rx] Follow up Appointment(s)/Referral(s): Tracey Means MD [Primary Care Provider] - 1-2 days [facility] [NON-STAFF] - (Supplies [employer]) [facility], [NON-STAFF] - [facility], [REFERRING] - (Supplies Tube Feed) Patient Instructions/Handouts: Sepsis (GEN), Pneumonia (DC) Activity/Diet/Wound Care/Special Instructions: Tube feeding Vital 1.2 for a total of 5.5 cans per day. Discharge Disposition: HOME WITH HOME HEALTH SERVICES
== END 2018-08-03 15:22 | disposition home health service (06) | DRG 871 ==
LOC: SUPCPDRO 14:53 → EC 14:53 → 2SICU 17:14 → 4MS4W 08-02 13:16
PROVIDERS: ADMIT Internal Medicine Geriatric Medicine; ATTEND Internal Medicine Geriatric Medicine
PROC: 02H633Z Insertion of Infusion Device into Right Atrium, Percutaneous Approach (ICD-10-PCS; principal; 2018-07-24)
PROC: 0BH17EZ Insertion of Endotracheal Airway into Trachea, Via Natural or Artificial Opening (ICD-10-PCS; 2018-07-24)
PROC: 5A1945Z Respiratory Ventilation, 24-96 Consecutive Hours (ICD-10-PCS; 2018-07-24)
PROC: 0D9670Z Drainage of Stomach with Drainage Device, Via Natural or Artificial Opening (ICD-10-PCS; 2018-07-24)
PROC: 0DCQXZZ Extirpation of Matter from Anus, External Approach (ICD-10-PCS; 2018-07-25)
PROC: 3E0G76Z Introduction of Nutritional Substance into Upper GI, Via Natural or Artificial Opening (ICD-10-PCS; 2018-07-27)
PROC: 30243N1 Transfusion of Nonautologous Red Blood Cells into Central Vein, Percutaneous Approach (ICD-10-PCS; 2018-07-28)
PROC: 0DH63UZ Insertion of Feeding Device into Stomach, Percutaneous Approach (ICD-10-PCS; 2018-08-01)
PROC: 3E0G76Z Introduction of Nutritional Substance into Upper GI, Via Natural or Artificial Opening (ICD-10-PCS; 2018-08-01)
DX: A41.9 Sepsis, unspecified organism (principal); R65.21 Severe sepsis with septic shock; G93.41 Metabolic encephalopathy; J96.21 Acute and chronic respiratory failure with hypoxia; J69.0 Pneumonitis due to inhalation of food and vomit; L89.623 Pressure ulcer of left heel, stage 3; J15.0 Pneumonia due to Klebsiella pneumoniae; E43 Unspecified severe protein-calorie malnutrition; E87.4 Mixed disorder of acid-base balance; J44.0 Chronic obstructive pulmonary disease with (acute) lower respiratory infection; G91.2 (Idiopathic) normal pressure hydrocephalus; Z68.1 Body mass index [BMI] 19.9 or less, adult; N39.0 Urinary tract infection, site not specified; L89.302 Pressure ulcer of unspecified buttock, stage 2; L89.102 Pressure ulcer of unspecified part of back, stage 2; R62.7 Adult failure to thrive; R13.10 Dysphagia, unspecified; G20 Parkinson's disease; I11.0 Hypertensive heart disease with heart failure; I50.9 Heart failure, unspecified; E86.0 Dehydration; I27.20 Pulmonary hypertension, unspecified; D69.59 Other secondary thrombocytopenia; F25.9 Schizoaffective disorder, unspecified; Z66 Do not resuscitate; T36.0X5A Adverse effect of penicillins, initial encounter; K56.41 Fecal impaction; G40.909 Epilepsy, unspecified, not intractable, without status epilepticus; F03.90 Unspecified dementia, unspecified severity, without behavioral disturbance, psychotic disturbance, mood disturbance, and anxiety; I08.0 Rheumatic disorders of both mitral and aortic valves; E03.9 Hypothyroidism, unspecified; D50.9 Iron deficiency anemia, unspecified; F89 Unspecified disorder of psychological development; F32.9 Major depressive disorder, single episode, unspecified; E78.5 Hyperlipidemia, unspecified; F79 Unspecified intellectual disabilities; R32 Unspecified urinary incontinence; Z79.82 Long term (current) use of aspirin; Z79.890 Hormone replacement therapy; Z79.1 Long term (current) use of non-steroidal anti-inflammatories (NSAID); Z79.51 Long term (current) use of inhaled steroids; Z79.899 Other long term (current) drug therapy; Z99.3 Dependence on wheelchair; Z87.891 Personal history of nicotine dependence; Z87.440 Personal history of urinary (tract) infections; Z96.641 Presence of right artificial hip joint; Z88.2 Allergy status to sulfonamides; Z82.0 Family history of epilepsy and other diseases of the nervous system
CPT/HCPCS: 31500; 36415; 36556; 36600; 43246; 70450; 71045; 74018; 74022; 74230; 80048; 80053; 80164; 80202; 80306; 81003; 82140; 82550; 82553; 82805; 83605; 83690; 83735; 84100; 84132; 84145; 84443; 84484; 85025; 85610; 85730; 86850; 86900; 86901; 86920; 87040; 87070; 87077; 87086; 87186; 87205; 87502; 93005; 94002; 94003; 94640; 94660; 94760; 96365; 96366; 96367; 96368; 96375; 99291

== ENCOUNTER 2018-10-08 18:49 | Emergency (ER) | payer MEDICARE, OTHER ==
[2018-10-08 19:06] VITALS: RESP 18; TEMP 97.1
[2018-10-08] MEDS ORDERED: ACETAMINOPHEN ORAL SUSP 160 MG/5 ML CUP PO STA (19:26)
--- NOTE | 2018-10-08 19:32 | ED ---
Head Injury HPI - General Chief complaint: Head Injury Stated complaint: fall Time Seen by Provider: 10/08/18 19:13 Source: patient Mode of arrival: wheelchair Limitations: no limitations - History of Present Illness Initial comments: 78-year-old female patient presents to the emergency department today for evaluation after sustaining a head injury. Patient's caregiver is present states patient attempted to transfer herself from the toilet when she lost her balance and fell striking her head. They deny any loss of consciousness with the injury. States that she did have some bruising to the forehead and a bump on the back of her head to the wanted her evaluated. Patient states she is having some mild local pain to the head but denies headache. She denies any blurred vision, double vision, nausea, or vomiting. Denies any numbness, tingling, or weakness to her extremities. She denies any other injuries. She takes a baby aspirin daily but no other anticoagulants or antiplatelet medications. Patient denies any headache, neck pain, back pain, chest pain, shortness of breath, dizziness, weakness, abdominal pain, or difficulties with bowel movements or urination. - Related Data Home Medications Medication Instructions Recorded Confirmed Albuterol Nebulized [Ventolin 2.5 mg INHALATION RT-QID 09/09/14 10/08/18 Nebulized] Aspirin 81 mg PEG/G-TUBE DAILY 09/09/14 10/08/18 Benztropine Mesylate [Cogentin] 0.5 mg PEG/G-TUBE BID 09/09/14 10/08/18 risperiDONE [RisperDAL] 1 mg PEG/G-TUBE BID 09/09/14 10/08/18 Atorvastatin [Lipitor] 5 mg PEG/G-TUBE DAILY 06/16/18 10/08/18 Levothyroxine Sodium [Synthroid] 125 mcg PEG/G-TUBE DAILY 06/16/18 10/08/18 Augmentin(Unknown) 1 tab PEG/G-TUBE DAILY 10/08/18 10/08/18 Budesonide [Pulmicort] 0.5 mg INHALATION RT-BID 10/08/18 10/08/18 Cranberry 425mg 425 mg PEG/G-TUBE DAILY 10/08/18 10/08/18 Ferrous Sulfate Oral Elixir 450 mg PEG/G-TUBE BID 10/08/18 10/08/18 [Feosol Liquid] Furosemide [Lasix] 40 mg PEG/G-TUBE DAILY 10/08/18 10/08/18 Lactulose [Cephulac] 20 gm PEG/G-TUBE DAILY PRN 10/08/18 10/08/18 Latanoprost [Xalatan 0.005%] 1 drop BOTH EYES HS 10/08/18 10/08/18 Prednisone(Unknown Dose) 1 dose PEG/G-TUBE DIRECTED 10/08/18 10/08/18 Valproic Acid Oral Soln [Depakene 250 mg PEG/G-TUBE QAM 10/08/18 10/08/18 Syrup] Valproic Acid Oral Soln [Depakene 375 mg PEG/G-TUBE HS 10/08/18 10/08/18 Syrup] guaiFENesin 400 mg PEG/G-TUBE TID 10/08/18 10/08/18 guaiFENesin SYRUP 100MG/5ML 200 mg PEG/G-TUBE Q6H PRN 10/08/18 10/08/18 [Robitussin] Allergies/Adverse reactions: Allergies Allergy/AdvReac Type Severity Reaction Status Date / Time sulfamethoxazole Allergy Rash/Hives Verified 10/08/18 19:20 [From Bactrim] trimethoprim [From Bactrim] Allergy Rash/Hives Verified 10/08/18 19:20 Review of Systems ROS Statement: Those systems with pertinent positive or pertinent negative responses have been documented in the HPI. ROS Other: All systems not noted in ROS Statement are negative. Past Medical History Past Medical History: Heart Failure, Hyperlipidemia, Hypertension, Mitral Valve Prolapse (MVP), Seizure Disorder, Thyroid Disorder Additional Past Medical History / Comment(s): History of Parkinson's disease, dementia, developmental delay, schizoaffective disorder, seizure disorder, chronic anemia, recurrent UTIs, recent hospitalization for septic shock secondary to underlying pneumonia, difficulty with mobility and gait and the patient has a gait dysfunction, hypertension, hyperlipidemia, difficulties with comprehension, hypothyroidism, moderate degree of aortic stenosis with a preserved LV function and ejection fraction of 50-55% and the patient has moderate pulmonary hypertension with a PA pressure of 49. History of Any Multi-Drug Resistant Organisms: None Reported Past Surgical History: Joint Replacement Additional Past Surgical History / Comment(s): RIGHT HIP, ORIF OF RIGHT ELBOW (09/11/2014). Past Anesthesia/Blood Transfusion Reactions: No Reported Reaction Past Psychological History: Depression, Schizophrenia Smoking Status: Former smoker Past Alcohol Use History: None Reported Past Drug Use History: None Reported - Past Family History Brother(s) Family Medical History: Seizure Disorder Additional Family Medical History / Comment(s): parkinsons General Exam Limitations: no limitations General appearance: alert, in no apparent distress, other (Physical well- developed, well-nourished elderly female patient in no acute distress. Vital signs upon presentation are temperature 97.1F, pulse 77, respirations 18, blood pressure 130/75, pulse ox 98% on room air.) Eye exam: Present: normal appearance, PERRL, EOMI. Absent: scleral icterus, conjunctival injection, nystagmus, periorbital swelling ENT exam: Present: normal exam, normal oropharynx, mucous membranes moist Neck exam: Present: normal inspection, full ROM, other (Nontender, no step-off, no deformity to firm midline palpation of the posterior cervical spine. Full range of motion without pain or limitation.). Absent: tenderness, meningismus, lymphadenopathy Respiratory exam: Present: normal lung sounds bilaterally. Absent: respiratory distress, wheezes, rales, rhonchi, stridor Cardiovascular Exam: Present: regular rate, normal rhythm, normal heart sounds. Absent: systolic murmur, diastolic murmur, rubs, gallop, clicks GI/Abdominal exam: Present: soft, normal bowel sounds. Absent: distended, tenderness, guarding, rebound, rigid Extremities exam: Present: normal inspection, full ROM, normal capillary refill, other (Skin to all extremities is pink, warm, and dry. Cap refills less than 3 seconds. Radial pulses 2+ and equal bilaterally. Pedal pulses 2+ and equal bilaterally. No hip tenderness or pelvic instability noted.). Absent: tenderness, pedal edema, joint swelling, calf tenderness Back exam: Present: normal inspection, other (Nontender, no step-off, no deformity to firm midline palpation of the thoracic and lumbar vertebrae. Full range of motion without pain or limitation.). Absent: vertebral tenderness Neurological exam: Present: alert, CN II-XII intact. Absent: oriented X3 (Oriented 2) Psychiatric exam: Present: normal affect, normal mood Skin exam: Present: warm, dry, intact, normal color. Absent: rash Course Vital Signs 10/08/18 19:03 Temperature 97.1 F L Pulse Rate 77 Respiratory 18 Rate Blood Pressure 130/75 O2 Sat by Pulse 98 Oximetry Medical Decision Making - Medical Decision Making 78-year-old female patient presented to the emergency department today for evaluation after experiencing a fall and head injury. Physical examination did reveal a contusion to the left forehead and to the left parietal scalp. Patient is neurologically intact with no focal deficits. CT of the brain and C-spine was obtained and showed no acute abnormalities. She had no other injuries. Patient does have caregiver present, we did educate regarding signs or symptoms of worsening head injury. Instructed to follow-up with primary care physician for recheck in 1-2 days. Return parameters were discussed in detail. She verbalizes understanding and agreed with this plan. - Radiology Data Radiology results: report reviewed, image reviewed CT of the brain and C-spine were obtained without contrast. Report was reviewed in its entirety. Impression by Dr. Mosher shows her watch her feet hydrocephalus. No acute abnormality of the cervical spine. No fracture. Disposition Clinical Impression: Head injury, Scalp contusion Disposition: HOME SELF-CARE Condition: Good Instructions (If sedation given, give patient instructions): Head Injury (ED), Contusion in Adults (ED) Additional Instructions: Monitor for signs or symptoms of worsening head injury including but not limited to contusion, headache, vomiting, or weakness. Follow-up with the primary care physician for recheck in 1-2 days. Return to the emergency department immediately for any new, worsening, or concerning symptoms. Is patient prescribed a controlled substance at d/c from ED?: No Referrals: Tanner Marroquin MD [Primary Care Provider] - 1-2 days Time of Disposition: 20:04
--- NOTE | 2018-10-08 19:49 | CT ---
EXAMINATION TYPE: CT brain cullen denny con DATE OF EXAM: 10/08/2018 COMPARISON: CT brain 07/24/2018 HISTORY: Fall. Headache. Neck pain CT DLP: 1272.1 mGycm Automated exposure control for dose reduction was used. TECHNIQUE: CT scan of the head and cervical spine are performed without contrast. FINDINGS: There is cerebral cortical atrophy. There is no mass effect nor midline shift. There is n o sign of intracranial hemorrhage. There is enlargement of the ventricles. The calvarium is intact. Cervical vertebra have normal alignment. Disc spaces are fairly normal. Posterior elements are intact . The skull base is intact. There is no evidence of a fracture. There is ring osteophyte formation in the upper thoracic spine with anterior wedging. There is multilevel cervical facet arthropathy. IMPRESSION: Cerebral atrophy and hydrocephalus. No acute intracranial abnormality. No change. No acute abnormality of the cervical spine. No fracture.
[2018-10-08 20:50] VITALS: BP 128/70; PULSE 78
== END 2018-10-08 20:30 | disposition home or self-care (01) ==
LOC: EC 18:49
DX: S00.03XA Contusion of scalp, initial encounter (principal); S00.83XA Contusion of other part of head, initial encounter; E78.5 Hyperlipidemia, unspecified; I27.20 Pulmonary hypertension, unspecified; I11.0 Hypertensive heart disease with heart failure; I50.9 Heart failure, unspecified; I34.1 Nonrheumatic mitral (valve) prolapse; G40.909 Epilepsy, unspecified, not intractable, without status epilepticus; G20 Parkinson's disease; E03.9 Hypothyroidism, unspecified; F25.1 Schizoaffective disorder, depressive type; Z96.641 Presence of right artificial hip joint; Z87.891 Personal history of nicotine dependence; Z79.82 Long term (current) use of aspirin; Z79.890 Hormone replacement therapy; Z79.51 Long term (current) use of inhaled steroids; Z79.52 Long term (current) use of systemic steroids; Z79.899 Other long term (current) drug therapy; Z88.2 Allergy status to sulfonamides; W18.12XA Fall from or off toilet with subsequent striking against object, initial encounter; Y92.129 Unspecified place in nursing home as the place of occurrence of the external cause
CPT/HCPCS: 70450; 72125; 99284

== ENCOUNTER 2018-10-14 22:43 | Emergency (ER) | payer MEDICARE, OTHER ==
[2018-10-14 22:56] VITALS: BP 105/62; PULSE 97; RESP 16; TEMP 98.2
[2018-10-14] MEDS ORDERED: LIDOCAINE 1% INJ 10MG/ML (20 ML MDV) SQ ONE (23:15)
--- NOTE | 2018-10-15 00:02 | CT ---
EXAM: CT Head Without Intravenous Contrast CLINICAL HISTORY: Pain TECHNIQUE: Axial computed tomography images of the head/brain without intravenous contrast. CTDI is 0.085, 0.085, 25.8, 9.3 mGy and DLP is 884.2 mGy-cm. This CT exam was performed using one or more of the following dose reduction techniques: automated exposure control, adjustment of the mA and/or kV according to patient size, and/or use of iterative reconstruction technique. COMPARISON: No relevant prior studies available. FINDINGS: Brain: No acute infarct, hemorrhage, mass or edema. Chronic small vessel ischemic disease and senescent changes. Ventricles: Stable prominence of the ventricles out of proportion to the sulci which may represent central atrophy versus hydrocephalus. Bones/joints: Unremarkable. No acute fracture. Soft tissues: Minimal soft tissue swelling of the left frontal scalp. Sinuses: Unremarkable as visualized. No acute sinusitis. Mastoid air cells: Near-complete opacification of the right mastoid air cells. IMPRESSION: 1. No acute infarct, hemorrhage, mass or edema. 2. Minimal soft tissue swelling of the left frontal scalp. EXAM: CT Cervical Spine Without Intravenous Contrast CLINICAL HISTORY: Pain TECHNIQUE: Axial computed tomography images of the cervical spine without intravenous contrast. CTDI is 0.085, 0.085, 25.8, 9.3 mGy and DLP is 884. 2 mGy-cm. This CT exam was performed using one or more of the following dose reduction techniques: automated exposure control, adjustment of the mA and/or kV according to patient size, and/or use of iterative reconstruction technique. COMPARISON: No relevant prior studies available. FINDINGS: Vertebrae: No acute fracture or traumatic malalignment. Discs/spinal canal/neural foramina: Multilevel degenerative changes. No spinal canal stenosis. Soft tissues: Unremarkable. Lung apices: Minimal air trapping seen within the lung apices. IMPRESSION: No acute fracture or traumatic malalignment.
--- NOTE | 2018-10-15 00:05 | CT ---
EXAM: CT Maxillofacial Without Intravenous Contrast CLINICAL HISTORY: Pain TECHNIQUE: Axial computed tomography images of the face without intravenous contrast. CTDI is 0.085, 0.085, 25.8, 9.3 mGy and DLP is 884.2 mGy-cm. This CT exam was performed using one or more of the following dose reduction techniques: automated exposure control, adjustment of the mA and/or kV according to patient size, and/or use of iterative reconstruction technique. COMPARISON: No relevant prior studies available. FINDINGS: Bones/joints: No acute fracture. Soft tissues: Mild edema seen within the soft tissues of the left frontal scalp. Orbits: Unremarkable. Sinuses: Unremarkable. No air-fluid levels. IMPRESSION: Mild edema seen within the soft tissues of the left frontal scalp.
--- NOTE | 2018-10-15 00:14 | ED ---
General Adult HPI - General Source: patient Limitations: physical limitation <Maurice Benavides - Last Filed: 10/14/18 23:46> <Kellen Weathers - Last Filed: 10/15/18 06:10> - General Chief complaint: Wound/Laceration Stated complaint: Fall Time Seen by Provider: 10/14/18 22:59 - History of Present Illness Initial comments: Patient is a 78-year-old female presenting with her caregiver to emergency Department with a laceration to the left supraorbital region. Caregiver states that she was trying to move the patient from recliner when she tripped and hit a table causing a laceration. Patient states that she did not lose consciousness. Caregiver reports previous week she had a similar accident in the same region causing a hematoma in the same area. Patient denies headache, lightheadedness, dizziness, blurred vision, nausea, vomiting. Caregiver reports that her tetanus shot is updated. (Maurice Benavides) - Related Data Home Medications Medication Instructions Recorded Confirmed Albuterol Nebulized [Ventolin 2.5 mg INHALATION RT-QID 09/09/14 10/08/18 Nebulized] Aspirin 81 mg PEG/G-TUBE DAILY 09/09/14 10/08/18 Benztropine Mesylate [Cogentin] 0.5 mg PEG/G-TUBE BID 09/09/14 10/08/18 risperiDONE [RisperDAL] 1 mg PEG/G-TUBE BID 09/09/14 10/08/18 Atorvastatin [Lipitor] 5 mg PEG/G-TUBE DAILY 06/16/18 10/08/18 Levothyroxine Sodium [Synthroid] 125 mcg PEG/G-TUBE DAILY 06/16/18 10/08/18 Augmentin(Unknown) 1 tab PEG/G-TUBE DAILY 10/08/18 10/08/18 Budesonide [Pulmicort] 0.5 mg INHALATION RT-BID 10/08/18 10/08/18 Cranberry 425mg 425 mg PEG/G-TUBE DAILY 10/08/18 10/08/18 Ferrous Sulfate Oral Elixir 450 mg PEG/G-TUBE BID 10/08/18 10/08/18 [Feosol Liquid] Furosemide [Lasix] 40 mg PEG/G-TUBE DAILY 10/08/18 10/08/18 Lactulose [Cephulac] 20 gm PEG/G-TUBE DAILY PRN 10/08/18 10/08/18 Latanoprost [Xalatan 0.005%] 1 drop BOTH EYES HS 10/08/18 10/08/18 Prednisone(Unknown Dose) 1 dose PEG/G-TUBE DIRECTED 10/08/18 10/08/18 Valproic Acid Oral Soln [Depakene 250 mg PEG/G-TUBE QAM 10/08/18 10/08/18 Syrup] Valproic Acid Oral Soln [Depakene 375 mg PEG/G-TUBE HS 10/08/18 10/08/18 Syrup] guaiFENesin 400 mg PEG/G-TUBE TID 10/08/18 10/08/18 guaiFENesin SYRUP 100MG/5ML 200 mg PEG/G-TUBE Q6H PRN 10/08/18 10/08/18 [Robitussin] Allergies Allergy/AdvReac Type Severity Reaction Status Date / Time sulfamethoxazole Allergy Rash/Hives Verified 10/14/18 22:46 [From Bactrim] trimethoprim [From Bactrim] Allergy Rash/Hives Verified 10/14/18 22:46 Review of Systems ROS Other: All systems not noted in ROS Statement are negative. <Maurice Benavides - Last Filed: 10/14/18 23:46> ROS Other: All systems not noted in ROS Statement are negative. <Kellen Weathers - Last Filed: 10/15/18 06:10> ROS Statement: Those systems with pertinent positive or pertinent negative responses have been documented in the HPI. Past Medical History Past Medical History: Heart Failure, Hyperlipidemia, Hypertension, Mitral Valve Prolapse (MVP), Seizure Disorder, Thyroid Disorder Additional Past Medical History / Comment(s): History of Parkinson's disease, dementia, developmental delay, schizoaffective disorder, seizure disorder, chronic anemia, recurrent UTIs, recent hospitalization for septic shock secondary to underlying pneumonia, difficulty with mobility and gait and the patient has a gait dysfunction, hypertension, hyperlipidemia, difficulties with comprehension, hypothyroidism, moderate degree of aortic stenosis with a preserved LV function and ejection fraction of 50-55% and the patient has moderate pulmonary hypertension with a PA pressure of 49. History of Any Multi-Drug Resistant Organisms: None Reported Past Surgical History: Joint Replacement Additional Past Surgical History / Comment(s): RIGHT HIP, ORIF OF RIGHT ELBOW (09/11/2014). Past Anesthesia/Blood Transfusion Reactions: No Reported Reaction Past Psychological History: Depression, Schizophrenia Smoking Status: Former smoker Past Alcohol Use History: None Reported Past Drug Use History: None Reported - Past Family History Brother(s) Family Medical History: Seizure Disorder Additional Family Medical History / Comment(s): parkinsons <Maurice Benavides Last Filed: 10/14/18 23:46> General Exam Limitations: physical limitation General appearance: alert, in no apparent distress Expanded Head exam: Present: laceration (2 cm in the left supraorbital region), contusion (Left supraorbital region). Absent: raccoon eyes, biswas's sign, general tenderness Eye exam: Present: normal appearance, PERRL, EOMI Neck exam: Present: normal inspection Respiratory exam: Present: normal lung sounds bilaterally Cardiovascular Exam: Present: regular rate, normal rhythm, normal heart sounds Back exam: Present: normal inspection Neurological exam: Present: alert, oriented X3 Psychiatric exam: Present: normal affect, normal mood Skin exam: Present: warm, normal color <Maurice Benavides - Last Filed: 10/14/18 23:46> Course Vital Signs 10/14/18 22:46 Temperature 98.2 F Pulse Rate 97 Respiratory 16 Rate Blood Pressure 105/62 O2 Sat by Pulse 97 Oximetry Procedures - Laceration Laceration #1 Consent Obtained: verbal consent Indication: laceration Site: face Size (cm): 2 Description: linear Anesthetic Used: lidocaine 1% Anesthesia Technique: local infiltration Amount (mls): 10 Type of Sutures: nylon Size of Sutures: 4-0 Number of Sutures: 4 Technique: simple, interrupted Patient Tolerated Procedure: well <Maurice Benavides Last Filed: 10/14/18 23:46> Medical Decision Making <Maurice Benavides Last Filed: 10/14/18 23:46> <Kellen Weathers - Last Filed: 10/15/18 06:10> - Medical Decision Making Patient is 78-year-old female presenting to emergency Department with a laceration to the left supraorbital region. I repaired the laceration with 5 sutures. Patient was given tetanus prophylaxis. Caregiver advised to follow with primary care. Caregiver advised to return to emergency department if symptoms worsen. CT was unremarkable for fractures or acute intracranial changes. Case discussed with physician. (Maurice Benavides) I was available for consultation in the emergency department. The history and physical exam were done by the midlevel provider. I was consulted for this patient's care. I reviewed the case with the midlevel provider and based on their presentation of the patient, I agree with the assessment, medical decision making and plan of care as documented. Chart was dictated using [employer] dictation software. Attempts were made to correct any dictation errors however some typographical errors may persist. (Kellen Weathers) Disposition Is patient prescribed a controlled substance at d/c from ED?: No Time of Disposition: 00:16 <Maurice Benavides - Last Filed: 10/14/18 23:46> <Kellen Weathers - Last Filed: 10/15/18 06:10> Clinical Impression: Laceration Disposition: HOME SELF-CARE Condition: Stable Instructions (If sedation given, give patient instructions): Laceration (DC) Additional Instructions: Please follow proper wound care instructions. Please follow up primary care. Please return to emergency department since worsened. Referrals: Tanner Marroquin MD [Primary Care Provider] - 1-2 days
[2018-10-15] MEDS ORDERED: DIPH,PERTUS(ACELL)TETVAC-LF 0.5 ML VIAL IM ONE (00:15)
== END 2018-10-15 00:39 | disposition home or self-care (01) ==
LOC: EC 22:43
DX: S01.81XA Laceration without foreign body of other part of head, initial encounter (principal); E78.5 Hyperlipidemia, unspecified; I11.0 Hypertensive heart disease with heart failure; I50.9 Heart failure, unspecified; E03.9 Hypothyroidism, unspecified; G20 Parkinson's disease; F02.80 Dementia in other diseases classified elsewhere, unspecified severity, without behavioral disturbance, psychotic disturbance, mood disturbance, and anxiety; D64.9 Anemia, unspecified; G40.909 Epilepsy, unspecified, not intractable, without status epilepticus; F20.9 Schizophrenia, unspecified; F32.9 Major depressive disorder, single episode, unspecified; Z87.891 Personal history of nicotine dependence; Z88.2 Allergy status to sulfonamides; Z79.51 Long term (current) use of inhaled steroids; Z79.52 Long term (current) use of systemic steroids; Z79.82 Long term (current) use of aspirin; Z79.890 Hormone replacement therapy; Z79.899 Other long term (current) drug therapy; Z87.440 Personal history of urinary (tract) infections; Z87.01 Personal history of pneumonia (recurrent); Z93.1 Gastrostomy status; Z23 Encounter for immunization; W22.8XXA Striking against or struck by other objects, initial encounter; Y93.89 Activity, other specified
CPT/HCPCS: 72125; 70486; 70450; 90715; 99283; 90471; 12011; J2001

== ENCOUNTER 2019-01-28 09:18 | Emergency (ER) | payer MEDICARE, OTHER ==
[2019-01-28] MEDS ORDERED: SODIUM CHLORIDE 0.9% 1,000 ML IV STA (09:56)
[2019-01-28] MEDS ORDERED: MORPHINE SULFATE 2 MG/ML SYRINGE IVP STA (09:56)
[2019-01-28] MEDS ORDERED: ONDANSETRON 4 MG/2 ML VIAL IVP STA (09:56)
[2019-01-28] MEDS ORDERED: FAMOTIDINE 20 MG/2 ML VIAL IV STA (09:57)
--- NOTE | 2019-01-28 10:00 | ED ---
General Adult HPI - General Chief complaint: Upper Respiratory Infection Stated complaint: uti? 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 Patient vomited twice yesterday and once today. Patient has complain of abdominal discomfort. Patient has also complained of throat congestion. Patient has been gagging on her secretions occasionally. Vomiting is generally following PEG tube feedings. No fevers. Patient did have a small bowel movement this morning. - Related Data Home Medications Medication Instructions Recorded Confirmed Albuterol Nebulized [Ventolin 2.5 mg INHALATION RT-BID 09/09/14 01/28/19 Nebulized] Aspirin 81 mg PEG/G-TUBE DAILY 09/09/14 01/28/19 Benztropine Mesylate [Cogentin] 0.5 mg PEG/G-TUBE BID 09/09/14 01/28/19 risperiDONE [RisperDAL] 1 mg PEG/G-TUBE BID 09/09/14 01/28/19 Atorvastatin [Lipitor] 5 mg PEG/G-TUBE DAILY 06/16/18 01/28/19 Levothyroxine Sodium [Synthroid] 125 mcg PEG/G-TUBE DAILY 06/16/18 01/28/19 Budesonide [Pulmicort] 0.5 mg INHALATION RT-BID 10/08/18 01/28/19 Cranberry 425mg 425 mg PEG/G-TUBE DAILY 10/08/18 01/28/19 Ferrous Sulfate Oral Elixir 450 mg PEG/G-TUBE BID 10/08/18 01/28/19 [Feosol Liquid] Furosemide [Lasix] 40 mg PEG/G-TUBE DAILY 10/08/18 01/28/19 Lactulose [Cephulac] 20 gm PEG/G-TUBE DAILY PRN 10/08/18 01/28/19 Latanoprost [Xalatan 0.005%] 1 drop BOTH EYES HS 10/08/18 01/28/19 Valproic Acid Oral Soln [Depakene 250 mg PEG/G-TUBE QAM 10/08/18 01/28/19 Syrup] Valproic Acid Oral Soln [Depakene 375 mg PEG/G-TUBE HS 10/08/18 01/28/19 Syrup] Collagenase [Santyl] 1 applic TOPICAL DAILY 01/28/19 01/28/19 Fluticasone Nasal [place] [Flonase 1 spray EA NOSTRIL DAILY 01/28/19 01/28/19 Nasal [place]] [place] 1 applic TOPICAL DAILY 01/28/19 01/28/19 Montelukast Chew [Singulair Chew] 5 mg PEG/G-TUBE DAILY 01/28/19 01/28/19 Previous Rx's Medication Instructions Recorded Apixaban [Eliquis Starter Pack 5 mg PO DIRECTED 30 Days #1 pack 01/28/19 (for VTE)] Metoprolol Tartrate [Lopressor] 12.5 mg PO BID #60 dose 01/28/19 Ondansetron Odt [Zofran Odt] 4 mg PO Q8HR PRN #10 tab 01/28/19 Allergies Allergy/AdvReac Type Severity Reaction Status Date / Time sulfamethoxazole Allergy Rash/Hives Verified 01/28/19 10:18 [From Bactrim] trimethoprim [From Bactrim] Allergy Rash/Hives Verified 01/28/19 10:18 Review of Systems ROS Statement: Those systems with pertinent positive or pertinent negative responses have been documented in the HPI. ROS Other: All systems not noted in ROS Statement are negative. Constitutional: Denies: fever Eyes: Denies: eye pain ENT: Reports: congestion. Denies: ear pain Respiratory: Denies: dyspnea Cardiovascular: Denies: chest pain Endocrine: Denies: fatigue Gastrointestinal: Reports: abdominal pain, nausea, vomiting Genitourinary: Denies: dysuria Musculoskeletal: Denies: back pain Skin: Denies: rash Neurological: Denies: weakness Past Medical History Past Medical History: Heart Failure, Hyperlipidemia, Hypertension, Mitral Valve Prolapse (MVP), Seizure Disorder, Thyroid Disorder Additional Past Medical History / Comment(s): History of Parkinson's disease, dementia, developmental delay, schizoaffective disorder, seizure disorder, chronic anemia, recurrent UTIs, recent hospitalization for septic shock secondary to underlying pneumonia, difficulty with mobility and gait and the patient has a gait dysfunction, hypertension, hyperlipidemia, difficulties with comprehension, hypothyroidism, moderate degree of aortic stenosis with a preserved LV function and ejection fraction of 50-55% and the patient has moderate pulmonary hypertension with a PA pressure of 49. History of Any Multi-Drug Resistant Organisms: None Reported Past Surgical History: Joint Replacement Additional Past Surgical History / Comment(s): RIGHT HIP, ORIF OF RIGHT ELBOW (09/11/2014). Past Anesthesia/Blood Transfusion Reactions: No Reported Reaction Past Psychological History: Depression, Schizophrenia Smoking Status: Former smoker Past Alcohol Use History: None Reported Past Drug Use History: None Reported - Past Family History Brother(s) Family Medical History: Seizure Disorder Additional Family Medical History / Comment(s): parkinsons General Exam Limitations: no limitations General appearance: alert, in no apparent distress Head exam: Present: atraumatic Eye exam: Present: PERRL, other (Left eyelid is droopy which is reported as chronic) ENT exam: Present: normal oropharynx Neck exam: Present: normal inspection Respiratory exam: Present: normal lung sounds bilaterally Cardiovascular Exam: Present: regular rate, normal rhythm GI/Abdominal exam: Present: soft, tenderness (Mild diffuse tenderness), normal bowel sounds. Absent: distended, guarding, rebound, rigid, pulsatile mass Extremities exam: Present: normal inspection Neurological exam: Present: alert Psychiatric exam: Present: normal affect, normal mood Skin exam: Present: normal color Course Vital Signs 01/28/19 01/28/19 01/28/19 09:19 11:39 12:26 Temperature 97.8 F Pulse Rate 62 72 53 L Respiratory 18 16 16 Rate Blood Pressure 112/66 131/92 93/62 O2 Sat by Pulse 97 99 95 Oximetry 01/28/19 13:30 Temperature Pulse Rate 67 Respiratory 16 Rate Blood Pressure 103/75 O2 Sat by Pulse 94 L Oximetry EKG Findings - EKG Comments: EKG Findings:: Atrial fibrillation with slow ventricular response, rate 49. QRS 92. QT 482. QTC 435. Normal axis. Normal QRS. Nonspecific T waves. Medical Decision Making - Medical Decision Making Patient reevaluated and resting comfortably in bed. 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 Case was discussed in detail with Dr. Bran who states patient can be discharged with close follow-up. She does recommend Eliquis starter and metoprolol 12.5 twice a day. Patient has converted back to sinus rhythm. - Lab Data Result diagrams: 01/28/19 10:25 01/28/19 10:25 Lab Results 01/28/19 01/28/19 01/28/19 Range/Units 10:25 10:25 10:25 WBC 13.5 H (3.8-10.6) k/uL RBC 4.58 (3.80-5.40) m/uL Hgb 13.0 (11.4-16.0) gm/dL Hct 39.7 (34.0-46.0) % MCV 86.7 (80.0-100.0) fL MCH 28.5 (25.0-35.0) pg MCHC 32.9 (31.0-37.0) g/dL RDW 17.2 H (11.5-15.5) % Plt Count 370 (150-450) k/uL Neutrophils % 82 % Lymphocytes % 11 % Monocytes % 5 % Eosinophils % 1 % Basophils % 0 % Neutrophils # 11.1 H (1.3-7.7) k/uL Lymphocytes # 1.5 (1.0-4.8) k/uL Monocytes # 0.7 (0-1.0) k/uL Eosinophils # 0.2 (0-0.7) k/uL Basophils # 0.0 (0-0.2) k/uL Anisocytosis Slight PT 9.5 (9.0-12.0) sec INR 0.9 (<1.2) APTT 25.8 (22.0-30.0) sec Sodium 136 L (137-145) mmol/L Potassium 3.7 (3.5-5.1) mmol/L Chloride 92 L (98-107) mmol/L Carbon Dioxide 33 H (22-30) mmol/L Anion Gap 11 mmol/L BUN 24 H (7-17) mg/dL Creatinine 0.42 L (0.52-1.04) mg/dL Est GFR (CKD-EPI)AfAm >90 (>60 ml/min/1.73 sqM) Est GFR (CKD-EPI)NonAf >90 (>60 ml/min/1.73 sqM) Glucose 129 H (74-99) mg/dL Calcium 9.7 (8.4-10.2) mg/dL Total Bilirubin 0.3 (0.2-1.3) mg/dL AST 45 H (14-36) U/L ALT 31 (9-52) U/L Alkaline Phosphatase 129 H (38-126) U/L Troponin I (0.000-0.034) ng/mL Total Protein 6.5 (6.3-8.2) g/dL Albumin 3.5 (3.5-5.0) g/dL Amylase 54 (30-110) U/L Lipase 63 (23-300) U/L Urine Color Urine Appearance (Clear) Urine pH (5.0-8.0) Ur Specific [place] (1.001-1.035) Urine Protein (Negative) Urine Glucose (UA) (Negative) Urine Ketones (Negative) Urine Blood (Negative) Urine Nitrite (Negative) Urine Bilirubin (Negative) Urine Urobilinogen (<2.0) mg/dL Ur Leukocyte Esterase (Negative) 01/28/19 01/28/19 Range/Units 10:25 10:25 WBC (3.8-10.6) k/uL RBC (3.80-5.40) m/uL Hgb (11.4-16.0) gm/dL Hct (34.0-46.0) % MCV (80.0-100.0) fL MCH (25.0-35.0) pg MCHC (31.0-37.0) g/dL RDW (11.5-15.5) % Plt Count (150-450) k/uL Neutrophils % % Lymphocytes % % Monocytes % % Eosinophils % % Basophils % % Neutrophils # (1.3-7.7) k/uL Lymphocytes # (1.0-4.8) k/uL Monocytes # (0-1.0) k/uL Eosinophils # (0-0.7) k/uL Basophils # (0-0.2) k/uL Anisocytosis PT (9.0-12.0) sec INR (<1.2) APTT (22.0-30.0) sec Sodium (137-145) mmol/L Potassium (3.5-5.1) mmol/L Chloride (98-107) mmol/L Carbon Dioxide (22-30) mmol/L Anion Gap mmol/L BUN (7-17) mg/dL Creatinine (0.52-1.04) mg/dL Est GFR (CKD-EPI)AfAm (>60 ml/min/1.73 sqM) Est GFR (CKD-EPI)NonAf (>60 ml/min/1.73 sqM) Glucose (74-99) mg/dL Calcium (8.4-10.2) mg/dL Total Bilirubin (0.2-1.3) mg/dL AST (14-36) U/L ALT (9-52) U/L Alkaline Phosphatase (38-126) U/L Troponin I <0.012 (0.000-0.034) ng/mL Total Protein (6.3-8.2) g/dL Albumin (3.5-5.0) g/dL Amylase (30-110) U/L Lipase (23-300) U/L Urine Color Yellow Urine Appearance Clear (Clear) Urine pH 7.0 (5.0-8.0) Ur Specific [place] 1.015 (1.001-1.035) Urine Protein Negative (Negative) Urine Glucose (UA) Negative (Negative) Urine Ketones 1+ H (Negative) Urine Blood Negative (Negative) Urine Nitrite Negative (Negative) Urine Bilirubin Negative (Negative) Urine Urobilinogen <2.0 (<2.0) mg/dL Ur Leukocyte Esterase Negative (Negative) - Radiology Data Radiology results: report reviewed (ET scan abdomen pelvis does show thickening of the distal esophagus and/or hiatal hernia. Some mild fecal retention in the colon.) Disposition Clinical Impression: Vomiting, New onset a-fib Disposition: HOME SELF-CARE Condition: Stable Additional Instructions: Please follow-up with primary care physician in the next day or 2 for recheck. Return for uncontrolled vomiting, increased heart rate, worsening or changing symptoms or other concerns. Your prescriptions have been sent to [facility] Prescriptions: Apixaban [Eliquis Starter Pack (for VTE)] 5 mg PO DIRECTED 30 Days #1 pack Metoprolol Tartrate [Lopressor] 12.5 mg PO BID #60 dose Ondansetron Odt [Zofran Odt] 4 mg PO Q8HR PRN #10 tab PRN Reason: Nausea Is patient prescribed a controlled substance at d/c from ED?: No Referrals: Tanner Marroquin MD [Primary Care Provider] - 1-2 days Time of Disposition: 14:07
[2019-01-28 10:42] LABS: Anisocytosis Slight; Basophils % (A) 0 %; Eosinophils # (A) 0.2 k/uL (0-0.7); Eosinophils % (A) 1 %; HCT 39.7 % (34.0-46.0); Lymphocytes # (A) 1.5 k/uL (1.0-4.8); Lymphocytes % (A) 11 %; MCH 28.5 pg (25.0-35.0); MCHC 32.9 g/dL (31.0-37.0); MCV 86.7 fL (80.0-100.0); Monocytes # (A) 0.7 k/uL (0-1.0); Monocytes % (A) 5 %; Neutrophils # (A) 11.1 k/uL (1.3-7.7); Neutrophils % (A) 82 %; Platelet Count 370 k/uL (150-450); RBC 4.58 m/uL (3.80-5.40); RDW 17.2 % (11.5-15.5); WBC 13.5 k/uL (3.8-10.6)
[2019-01-28 10:51] LABS: INR 0.9 (<1.2); Partial Thromboplastin Time 25.8 sec (22.0-30.0); Prothrombin Time 9.5 sec (9.0-12.0)
[2019-01-28 10:55] LABS: ALT 31 U/L (9-52); AST 45 U/L (14-36); African American GFR (CKD) >90 (>60 ml/min/1.73 sqM); Albumin 3.5 g/dL (3.5-5.0); Alkaline Phosphatase 129 U/L (38-126); Amylase 54 U/L (30-110); Anion Gap 11 mmol/L; Blood Urea Nitrogen 24 mg/dL (7-17); Calcium 9.7 mg/dL (8.4-10.2); Carbon Dioxide 33 mmol/L (22-30); Chloride 92 mmol/L (98-107); Glucose 129 mg/dL (74-99); Potassium 3.7 mmol/L (3.5-5.1); Sodium 136 mmol/L (137-145); Total Bilirubin 0.3 mg/dL (0.2-1.3); Total Protein 6.5 g/dL (6.3-8.2)
[2019-01-28 11:28] LABS: Appearance,Urine Clear (Clear); Bilirubin,Urine Negative (Negative); Blood,Urine Negative (Negative); Color,Urine Yellow; Glucose,Urine (UA) Negative (Negative); Ketones,Urine 1+ (Negative); Leukocyte Esterase,Urine Negative (Negative); Nitrite,Urine Negative (Negative); Protein,Urine Negative (Negative); Specific Gravity,Urine 1.015 (1.001-1.035); Urobilinogen,Urine <2.0 mg/dL (<2.0)
[2019-01-28 11:39] VITALS: RESP 16
--- NOTE | 2019-01-28 11:48 | CT ---
EXAMINATION TYPE: CT abdomen pelvis w con DATE OF EXAM: 01/28/2019 COMPARISON: 05/23/2011 INDICATION: Abdominal pain, no other history is provided. DLP: 677.6 mGycm, Automated exposure control for dose reduction was used. CONTRAST: 100 mL of Isovue 300. Study performed without Oral Contrast TECHNIQUE: Axial images were obtained from above the diaphragm to the pubic rami in the axial plane a t 5 mm thick sections. Reconstructed images are reviewed on the computer in the coronal plane. FINDINGS: Limited CT sections are obtained the lung bases. The lung bases are clear. There is a hiatal hernia with thickened wall. Recommend additional evaluation. Esophageal cancer is not excluded. This is a c hange from 2010. CT ABDOMEN: PEG tube is present into the stomach. Liver: Normal Spleen: Normal Pancreas: Normal Adrenal glands: The adrenal glands are normal. Gallbladder: Normal Kidneys: No masses are evident. No hydronephrosis is present. No cysts are present. Delayed images were obtained through the kidneys, which remain unremarkable. Aorta: Vascular calcification is within the aorta. Inferior vena cava: Normal. CT PELVIS: Loops of bowel within the abdomen and pelvis are normal. The studies performed without oral contr ast limiting bowel evaluation. Fecal debris is within the colon. Postsurgical changes are within the distal sigmoid colon. No dilated small bowel loops are evident. Appendix: Not identified. No suspicious inflammatory changes or dilated tubular structures are eviden t. Urinary bladder: Decompressed with limited evaluation. Genitourinary structures: Uterus and ovaries are not identified. No free fluid is within the adnexa. Osseous structures: No suspicious lytic or sclerotic lesions. Is a right hip pain this may be within the prosthesis. Femoral head is not clearly identified. Erosion of the femoral head resorption should be considered. IMPRESSIONS: 1. Thickening of the distal esophagus and/or hiatal hernia. Underlying neoplasm should be considered . 2. No obvious changes for bowel obstruction. 3. There is some mild fecal retention within the colon.
[2019-01-28 15:04] VITALS: BP 97/54; PULSE 66; TEMP 97.4
== END 2019-01-28 15:00 | disposition home or self-care (01) ==
LOC: EC 09:18
DX: I48.91 Unspecified atrial fibrillation (principal); R11.10 Vomiting, unspecified; I11.0 Hypertensive heart disease with heart failure; I50.9 Heart failure, unspecified; E78.5 Hyperlipidemia, unspecified; E03.9 Hypothyroidism, unspecified; F32.9 Major depressive disorder, single episode, unspecified; F25.9 Schizoaffective disorder, unspecified; Z79.82 Long term (current) use of aspirin; Z79.890 Hormone replacement therapy; Z79.51 Long term (current) use of inhaled steroids; Z79.899 Other long term (current) drug therapy; Z88.1 Allergy status to other antibiotic agents; Z88.2 Allergy status to sulfonamides; Z87.891 Personal history of nicotine dependence
CPT/HCPCS: 36415; 93005; 80053; 82150; 83690; 84484; 85025; 85610; 85730; 81003; 74177; 99284; 96374; 96375; 96361 ×5; J2405; Q9967

== ENCOUNTER 2019-03-14 11:26 | Emergency (ER) | payer MEDICARE, OTHER ==
--- NOTE | 2019-03-14 12:10 | ED ---
Fall HPI - General Chief Complaint: Fall Stated Complaint: leg fracture Time Seen by Provider: 03/14/19 11:49 Source: patient, family Mode of arrival: EMS - History of Present Illness Initial Comments: 78-year-old female presenting after prostate fracturing her foot. Patient's caregivers at bedside and states that they were moving the patient when her right foot got caught and they heard a snap. Patient was then lowered to the floor and he found there to be deformity of her right lower extremity. Patient is currently denying any pain. There was no fall or head trauma. Denies any numbness or tingling. - Related Data Home Medications Medication Instructions Recorded Confirmed Albuterol Nebulized [Ventolin 2.5 mg INHALATION RT-BID 09/09/14 03/14/19 Nebulized] Aspirin 81 mg PEG/G-TUBE DAILY 09/09/14 03/14/19 Benztropine Mesylate [Cogentin] 0.5 mg PEG/G-TUBE BID 09/09/14 03/14/19 risperiDONE [RisperDAL] 1 mg PEG/G-TUBE BID 09/09/14 03/14/19 Atorvastatin [Lipitor] 5 mg PEG/G-TUBE DAILY 06/16/18 03/14/19 Levothyroxine Sodium [Synthroid] 125 mcg PEG/G-TUBE DAILY 06/16/18 03/14/19 Budesonide [Pulmicort] 0.5 mg INHALATION RT-BID 10/08/18 03/14/19 Ferrous Sulfate Oral Elixir 450 mg PEG/G-TUBE BID 10/08/18 03/14/19 [Feosol Liquid] Furosemide [Lasix] 40 mg PEG/G-TUBE DAILY 10/08/18 03/14/19 Lactulose [Cephulac] 20 gm PEG/G-TUBE DAILY PRN 10/08/18 03/14/19 Latanoprost [Xalatan 0.005%] 1 drop BOTH EYES HS 10/08/18 03/14/19 Valproic Acid Oral Soln [Depakene 250 mg PEG/G-TUBE QAM 10/08/18 03/14/19 Syrup] Valproic Acid Oral Soln [Depakene 375 mg PEG/G-TUBE HS 10/08/18 03/14/19 Syrup] Fluticasone Nasal [place] [Flonase 1 spray EA NOSTRIL DAILY 01/28/19 03/14/19 Nasal [place]] Acetaminophen [Tylenol Extra 500 mg PEG/G-TUBE TID PRN 03/14/19 03/14/19 Strength] Apixaban [Eliquis] 5 mg PEG/G-TUBE BID 03/14/19 03/14/19 Cranberry Fruit Concentrate [Azo 250 mg PEG/G-TUBE DAILY 03/14/19 03/14/19 Cranberry] Docusate Oral Soln [Colace Oral 100 mg PEG/G-TUBE DAILY 03/14/19 03/14/19 Soln] Metoprolol Tartrate [Lopressor] 25 mg PEG/G-TUBE BID 03/14/19 03/14/19 Mucus Relief 400mg 400 mg PO BID 03/14/19 03/14/19 Previous Rx's Medication Instructions Recorded Acetaminophen [Tylenol] 500 mg PO Q4-6H PRN #30 tab 03/14/19 Allergies Allergy/AdvReac Type Severity Reaction Status Date / Time sulfamethoxazole Allergy Rash/Hives Verified 03/14/19 12:52 [From Bactrim] trimethoprim [From Bactrim] Allergy Rash/Hives Verified 03/14/19 12:52 Review of Systems ROS Statement: Those systems with pertinent positive or pertinent negative responses have been documented in the HPI. Review of Systems Constitutional: Denies fever, chills Eyes: Denies change in vision, Denies pain Ears, nose, mouth, throat: Denies headaches, Denies sore throat Cardiovascular: Denies chest pain. Denies palpitations Respiratory: Denies shortness of breath, Denies cough Gastrointestinal: Denies abdominal pain. Denies nausea, vomiting, diarrhea. Genitourinary: Denies hematuria, Denies infections Musculoskeletal: Denies pain, positive deformity Integumentary: Denies rash Neurological: Denies headache, focal weakness, focal numbness Psychiatric: Denies anxiety, Denies depression Hematologic/Lymphatic: Denies easy bleeding or bruising ROS Other: All systems not noted in ROS Statement are negative. Past Medical History Past Medical History: Atrial Fibrillation, Heart Failure, Dementia, Hyperlipidemia, Hypertension, Mitral Valve Prolapse (MVP), Seizure Disorder, Thyroid Disorder Additional Past Medical History / Comment(s): History of Parkinson's disease, dementia, developmental delay, schizoaffective disorder, seizure disorder, chronic anemia, recurrent UTIs, recent hospitalization for septic shock secondary to underlying pneumonia, difficulty with mobility and gait and the patient has a gait dysfunction, hypertension, hyperlipidemia, difficulties with comprehension, hypothyroidism, moderate degree of aortic stenosis with a preserved LV function and ejection fraction of 50-55% and the patient has moderate pulmonary hypertension with a PA pressure of 49. History of Any Multi-Drug Resistant Organisms: None Reported Past Surgical History: Joint Replacement Additional Past Surgical History / Comment(s): RIGHT HIP, ORIF OF RIGHT ELBOW (09/11/2014). Past Anesthesia/Blood Transfusion Reactions: No Reported Reaction Past Psychological History: Depression, Schizophrenia Smoking Status: Former smoker Past Alcohol Use History: None Reported Past Drug Use History: None Reported - Past Family History Brother(s) Family Medical History: Seizure Disorder Additional Family Medical History / Comment(s): parkinsons General Exam - General Exam Comments Initial Comments: General: Awake, alert, No acute Distress HENT: Normocephalic. Atraumatic Eyes: PERRL. EOMI. No scleral icterus. No injected conjunctiva Neck: Full ROM Chest/Lungs: Clear to auscultation bilaterally. No wheezing, rhonchi, or rales Cardiac: Regular rate, rhythm. No murmurs or rubs Abdomen/GI: Soft, nontender, nondistended. No rebound, guarding, or rigidity. Musculoskeletal: Full ROM. Swelling to the medial aspect of the right lower extremity near the tibia and fibula. 2+ DP pulse bilaterally. Sensation intact bilaterally. Soft compartments. Lower extremity sensation intact bilaterally. Skin: Warm, dry, intact Neurologic: A/Ox3, no weakness, no sensory deficit, no abnormal gait, no coordination deficit Course Vital Signs 03/14/19 03/14/19 03/14/19 11:46 14:05 15:31 Temperature 97.5 F L Pulse Rate 79 67 76 Respiratory 93 H 16 18 Rate Blood Pressure 122/68 113/83 130/60 O2 Sat by Pulse 94 L 94 L Oximetry 03/14/19 16:38 Temperature 97.2 F L Pulse Rate 87 Respiratory 18 Rate Blood Pressure 150/65 O2 Sat by Pulse 93 L Oximetry Medical Decision Making - Medical Decision Making 78 yoF presenting with fracture. Patient found to have distal tibia and fibula fracture as well as a tibial plateau fracture. She was having no pain on exam but her sesnation was intact. She was neurovascuarly intact. Soft compartments. Patient is on eliquis but did not have a fall or head injury. Spoke with on-call ortho who recommended non-weight bearing, splinting,a nd outpatient follow up. Patient is in a wheel chair at baseline. Patient was monitored in the department with no worsening of her exam. Compartments remained soft.Patient placed in posterior long leg splint with stirrup. Patient is stable for outpatient followup. No further emergent workup indicated. Disposition Clinical Impression: Fall, Closed tibial fracture, Tibial plateau fracture, left, Fibula fracture Disposition: HOME SELF-CARE Condition: Good Instructions (If sedation given, give patient instructions): Leg Fracture (ED), Splint Care (ED) Additional Instructions: Return if pain increases and is not improved with Tylenol, if the leg becomes severely swollen, or if her toes becomes cold and/or purple Prescriptions: Acetaminophen [Tylenol] 500 mg PO Q4-6H PRN #30 tab PRN Reason: Pain Is patient prescribed a controlled substance at d/c from ED?: No Referrals: Tanner Marroquin MD [Primary Care Provider] - 1-2 days Rodrick Brooks DO [Medical Doctor] - 1-2 days
--- NOTE | 2019-03-14 12:50 | XR ---
EXAMINATION TYPE: XR tibia fibula RT DATE OF EXAM: 03/14/2019 COMPARISON: NONE HISTORY: 78-year-old female with fall and pain TECHNIQUE: 2 views FINDINGS: Degenerative change of the knee. Dedicated views could further evaluate given some subtle lucencies a long the lateral tibial plateau. Comminuted oblique fractures mid to distal third femoral shaft. Dominant fragment is displaced by 1.1 cm laterally and 8 mm anteriorly. Associated soft tissue swelling. Additional distal third fibular shaft fracture with mild medial apex attenuation. Generalized osteopenia. IMPRESSION: 1. Comminuted, oblique fracture is mid to distal third tibial shaft with 1.1 cm of lateral and 8 mm o f anterior displacement. 2. Additional fracture distal third fibular shaft with mild medial apex angulation. 3. Some lucencies in the region of the lateral tibial plateau are probably projectional. If pain loca lizes here as well, dedicated views can assess for potential additional fracture.
--- NOTE | 2019-03-14 13:49 | XR ---
EXAMINATION TYPE: XR knee limited RT DATE OF EXAM: 03/14/2019 CLINICAL HISTORY: Right leg fracture. Pain. Fall injury. TECHNIQUE: 2 views of the right knee are obtained. COMPARISON: Right leg x-ray earlier today. FINDINGS: Demineralization is redemonstrated which is noted to lower radiographic sensitivity. Subopt imal also due to inability to satisfactory position. Persistent linear lucency through the lateral ti bial plateau. No significant joint effusion which would be expected with intra-articular fracture. Mo derate tricompartment joint space narrowing and spurring. Overlying blanket material and vascular margi cification. IMPRESSION: As above. Still cannot exclude acute nondisplaced intra-articular fracture through the la teral tibial plateau on these views.
--- NOTE | 2019-03-14 15:08 | CT ---
EXAMINATION TYPE: CT knee RT wo con DATE OF EXAM: 03/14/2019 COMPARISON: 03/14/2019 HISTORY: Pain post fall, abnormal xray CT DLP: 117.6 mGycm Automated exposure control for dose reduction was used. FINDINGS: There is a lucency along the medial tibial plateau on image 30 compatible with a very mildly depresse d tibial plateau fracture. There is approximate 1 to 2 mm depression. There is severe osteoarthritis with chondrocalcinosis and diffuse osteopenia. Hypertrophic spurring n oted. Vascular calcifications are seen. Small suprapatellar bursal fluid collection. Atherosclerotic change of the vasculature. IMPRESSION: 1. Findings compatible with a minimally depressed medial tibial plateau fracture. Depression measurin g approximately 1 to 2 mm extending over a segment of length of 1.6 cm. 2. Diffuse osteopenia with severe osteoarthritis. 3. Small suprapatellar joint effusion.
[2019-03-14 15:33] VITALS: RESP 18
[2019-03-14 16:39] VITALS: BP 150/65; PULSE 87; TEMP 97.2
== END 2019-03-14 16:42 | disposition home or self-care (01) ==
LOC: EC 11:26
DX: S82.141A Displaced bicondylar fracture of right tibia, initial encounter for closed fracture (principal); S82.831A Other fracture of upper and lower end of right fibula, initial encounter for closed fracture; I48.91 Unspecified atrial fibrillation; I11.0 Hypertensive heart disease with heart failure; I50.9 Heart failure, unspecified; G20 Parkinson's disease; F02.80 Dementia in other diseases classified elsewhere, unspecified severity, without behavioral disturbance, psychotic disturbance, mood disturbance, and anxiety; E78.5 Hyperlipidemia, unspecified; G40.909 Epilepsy, unspecified, not intractable, without status epilepticus; E03.9 Hypothyroidism, unspecified; D64.9 Anemia, unspecified; F32.9 Major depressive disorder, single episode, unspecified; F20.9 Schizophrenia, unspecified; Z87.891 Personal history of nicotine dependence; Z88.2 Allergy status to sulfonamides; Z79.01 Long term (current) use of anticoagulants; Z79.51 Long term (current) use of inhaled steroids; Z79.82 Long term (current) use of aspirin; Z79.890 Hormone replacement therapy; Z79.899 Other long term (current) drug therapy; Z93.1 Gastrostomy status; Z96.641 Presence of right artificial hip joint; X50.1XXA Overexertion from prolonged static or awkward postures, initial encounter; Y93.89 Activity, other specified
CPT/HCPCS: 29505; 99284

== ENCOUNTER → 2019-03-19 | Outpatient (CLI) | payer MEDICARE, OTHER ==
--- NOTE | 2019-03-19 14:22 | FL ---
EXAMINATION TYPE: FL barium swallow w video DATE OF EXAM: 03/19/2019 COMPARISON: NONE HISTORY: Dysphasia. FINDINGS: 2 minutes 56 seconds fluoroscopy time, no intraoperative images Patient was evaluated in real-time fluoroscopy in the lateral projection while ingesting barium mixe d with liquids and solids. Aspiration noted on thin liquids. Laryngeal penetration noted during the e xam. See dictated report from speech pathology.
== END | disposition home or self-care (01) ==
LOC: RADFLMAIN 10:58
PROVIDERS: ATTEND Surgery Plastic and Reconstructive Surgery
DX: R13.10 Dysphagia, unspecified (principal); Z88.2 Allergy status to sulfonamides
CPT/HCPCS: 74230

== ENCOUNTER 2019-03-22 10:45 | Day surgery (SDC) | payer MEDICARE, OTHER ==
[2019-03-20 14:58] VITALS: BMI 21.5
--- NOTE | 2019-03-22 09:10 | P.GSHP ---
History of Present Illness H&P Date: 03/22/19 CHIEF COMPLAINT: GERD HISTORY OF PRESENT ILLNESS: The patient is a 78-year-old female who presents reports gastroesophageal reflux disease. Upper endoscopy was offered for further evaluation and management. PAST MEDICAL HISTORY: Please see list. PAST SURGICAL HISTORY: Please see list. MEDICATIONS: Please see list. ALLERGIES: Please see list. SOCIAL HISTORY: Please see list. FAMILY HISTORY: Please see list. REVIEW OF ORGAN SYSTEMS: CONSTITUTIONAL: No reports of fevers or chills. GI: Denies any blood in stools or constipation. PHYSICAL EXAM: VITAL SIGNS: Stable GENERAL: Well-developed and pleasant in no acute distress. HEENT: No scleral icterus. Extraocular movements grossly intact. Moist buccal mucosa. NECK: Supple without lymphadenopathy. CHEST: Unlabored respirations. Equal bilateral excursions. CARDIOVASCULAR: Regular rate and rhythm. Distal 2+ pulses. ABDOMEN: Soft, nondistended. MUSCULOSKELETAL: No clubbing, cyanosis, or edema. ASSESSMENT: 1. Gastroesophageal reflux disease PLAN: 1. Recommend proceeding with an upper endoscopy Past Medical History Past Medical History: Heart Failure, Hyperlipidemia, Hypertension, Mitral Valve Prolapse (MVP), Seizure Disorder, Thyroid Disorder Additional Past Medical History / Comment(s): RECENT FX TO LT TIBIA ON 03/14/19- HAS SPLINT TO LLE. History of Parkinson's disease, dementia, developmental delay, schizoaffective disorder, seizure disorder, chronic anemia, recurrent UTIs, recent hospitalization for septic shock secondary to underlying pneumonia, difficulty with mobility and gait and the patient has a gait dysfunction,difficulties with comprehension, moderate degree of aortic stenosis with a preserved LV function and ejection fraction of 50-55% and the patient has moderate pulmonary hypertension with a PA pressure of 49. History of Any Multi-Drug Resistant Organisms: None Reported Past Surgical History: Joint Replacement Additional Past Surgical History / Comment(s): RIGHT HIP, ORIF OF RIGHT ELBOW (09/11/2014). Past Anesthesia/Blood Transfusion Reactions: No Reported Reaction Smoking Status: Former smoker - Past Family History Brother(s) Family Medical History: Seizure Disorder Additional Family Medical History / Comment(s): parkinsons Medications and Allergies Home Medications Medication Instructions Recorded Confirmed Type Albuterol Nebulized [Ventolin 2.5 mg INHALATION RT-BID 09/09/14 03/20/19 History Nebulized] Aspirin 81 mg PEG/G-TUBE DAILY 09/09/14 03/20/19 History Benztropine Mesylate [Cogentin] 0.5 mg PEG/G-TUBE BID 09/09/14 03/20/19 History risperiDONE [RisperDAL] 1 mg PEG/G-TUBE BID 09/09/14 03/20/19 History Atorvastatin [Lipitor] 5 mg PEG/G-TUBE DAILY 06/16/18 03/20/19 History Levothyroxine Sodium [Synthroid] 125 mcg PEG/G-TUBE DAILY 06/16/18 03/20/19 History Budesonide [Pulmicort] 0.5 mg INHALATION RT-BID 10/08/18 03/20/19 History Ferrous Sulfate Oral Elixir 450 mg PEG/G-TUBE BID 10/08/18 03/20/19 History [Feosol Liquid] Furosemide [Lasix] 40 mg PEG/G-TUBE DAILY 10/08/18 03/20/19 History Lactulose [Cephulac] 20 gm PEG/G-TUBE DAILY PRN 10/08/18 03/20/19 History Latanoprost [Xalatan 0.005%] 1 drop BOTH EYES HS 10/08/18 03/20/19 History Valproic Acid Oral Soln [Depakene 250 mg PEG/G-TUBE QAM 10/08/18 03/20/19 History Syrup] Valproic Acid Oral Soln [Depakene 375 mg PEG/G-TUBE HS 10/08/18 03/20/19 History Syrup] Fluticasone Nasal [place] [Flonase 1 spray EA NOSTRIL DAILY 01/28/19 03/20/19 History Nasal [place]] Acetaminophen [Tylenol Extra 500 mg PEG/G-TUBE TID PRN 03/14/19 03/20/19 History Strength] Acetaminophen [Tylenol] 500 mg PO Q4-6H PRN #30 tab 03/14/19 03/20/19 Rx Apixaban [Eliquis] 5 mg PEG/G-TUBE BID 03/14/19 03/20/19 History Cranberry Fruit Concentrate [Azo 250 mg PEG/G-TUBE DAILY 03/14/19 03/20/19 History Cranberry] Docusate Oral Soln [Colace Oral 100 mg PEG/G-TUBE DAILY 03/14/19 03/20/19 History Soln] Metoprolol Tartrate [Lopressor] 25 mg PEG/G-TUBE BID 03/14/19 03/20/19 History Mucus Relief 400mg 400 mg PO BID 03/14/19 03/20/19 History Allergies Allergy/AdvReac Type Severity Reaction Status Date / Time sulfamethoxazole Allergy Rash/Hives Verified 03/20/19 14:52 [From Bactrim] trimethoprim [From Bactrim] Allergy Rash/Hives Verified 03/20/19 14:52
[~2019-03-22 10:45] MED LIST: LIDOCAINE 1% 20 ML VIAL (10MG/ML) FOR IV START INTRADERMA PRN
[2019-03-22 11:05] VITALS: TEMP 97.2
[2019-03-22] MEDS: LACTATED RINGERS 1,000 ML IV SCH ×2 (11:08→11:55)
[2019-03-22] MEDS ORDERED: PROPOFOL 10 MG/ML 20 ML VIAL IV ONE (11:57)
[2019-03-22 12:48] VITALS: BP 154/70; PULSE 66; RESP 20
--- NOTE | 2019-03-22 15:20 | P.PCN ---
Date of Procedure: 03/22/19 Description of Procedure: PREOPERATIVE DIAGNOSIS: Dysphagia History of PEG tube. Cognitive delay POSTOPERATIVE DIAGNOSIS: Dysphagia History of PEG tube. Cognitive delay Diaphragmatic hiatal hernia Distal esophageal Schatzki's ring OPERATION: Esophagogastroduodenoscopy with balloon dilation, 20 mm distal esophagus SURGEON: Milagros Mayberry MD ANESTHESIA: MAC. INDICATIONS: The patient is a 78-year-old female who presents with a history of dysphagia. Benefits and risks of the procedure were described. Informed consent was obtained. DESCRIPTION: The patient was brought into the endoscopy suite and laid in the left lateral decubitus position. An Olympus gastroscope was passed along the posterior oropharynx down to the distal esophagus where the squamocolumnar junction was encountered at 30 cm from the incisors. The stomach was entered and no bile reflux was found. Additional findings are listed below. Biopsies with cold forceps were obtained of the antrum. The first through third portion of the duodenum was examined and unremarkable. Retroflexion of the scope confirmed Hill grade 3 lower esophageal valve including gastrostomy tube along the gastric fundus. The squamocolumnar junction demonstrated LA grade A erosive esophagitis. A Schatzki's ring was identified. A [employer] 20 mm balloon was inserted for dilation of the distal esophagus. The balloon was dilated for 1 minute. The mucosa was intact. The stomach was desufflated. The patient tolerated the procedure well. FINDINGS: Squamocolumnar junction 30 cm from the incisors. Diaphragmatic hiatus at 33 cm. Hiatal hernia, 3 cm Hill grade 3 lower esophageal valve. LA grade A erosive esophagitis. No active duodenitis. Chronic gastritis PEG at antrum RECOMMENDATIONS: Upper endoscopy as needed. Plan - Discharge Summary Discharge Rx Participant: No New Discharge Prescriptions: No Action risperiDONE [RisperDAL] 1 mg PEG/G-TUBE BID Benztropine Mesylate [Cogentin] 0.5 mg PEG/G-TUBE BID Aspirin 81 mg PEG/G-TUBE DAILY Albuterol Nebulized [Ventolin Nebulized] 2.5 mg INHALATION RT-BID Levothyroxine Sodium [Synthroid] 125 mcg PEG/G-TUBE DAILY Atorvastatin [Lipitor] 5 mg PEG/G-TUBE DAILY Latanoprost [Xalatan 0.005%] 1 drop BOTH EYES HS Lactulose [Cephulac] 20 gm PEG/G-TUBE DAILY PRN PRN Reason: Constipation Furosemide [Lasix] 40 mg PEG/G-TUBE DAILY Valproic Acid Oral Soln [Depakene Syrup] 375 mg PEG/G-TUBE HS Ferrous Sulfate Oral Elixir [Feosol Liquid] 450 mg PEG/G-TUBE BID Budesonide [Pulmicort] 0.5 mg INHALATION RT-BID Valproic Acid Oral Soln [Depakene Syrup] 250 mg PEG/G-TUBE QAM Fluticasone Nasal [place] [Flonase Nasal [place]] 1 spray EA NOSTRIL DAILY Mucus Relief 400mg 400 mg PO BID Metoprolol Tartrate [Lopressor] 25 mg PEG/G-TUBE BID Docusate Oral Soln [Colace Oral Soln] 100 mg PEG/G-TUBE DAILY Apixaban [Eliquis] 5 mg PEG/G-TUBE BID Cranberry Fruit Concentrate [Azo Cranberry] 250 mg PEG/G-TUBE DAILY Acetaminophen [Tylenol Extra Strength] 500 mg PEG/G-TUBE TID PRN PRN Reason: Pain Acetaminophen [Tylenol] 500 mg PO Q4-6H PRN #30 tab PRN Reason: Pain Discharge Medication List Albuterol Nebulized [Ventolin Nebulized] 2.5 mg INHALATION RT-BID 09/09/14 [History] Aspirin 81 mg PEG/G-TUBE DAILY 09/09/14 [History] Benztropine Mesylate [Cogentin] 0.5 mg PEG/G-TUBE BID 09/09/14 [History] risperiDONE [RisperDAL] 1 mg PEG/G-TUBE BID 09/09/14 [History] Atorvastatin [Lipitor] 5 mg PEG/G-TUBE DAILY 06/16/18 [History] Levothyroxine Sodium [Synthroid] 125 mcg PEG/G-TUBE DAILY 06/16/18 [History] Budesonide [Pulmicort] 0.5 mg INHALATION RT-BID 10/08/18 [History] Ferrous Sulfate Oral Elixir [Feosol Liquid] 450 mg PEG/G-TUBE BID 10/08/18 [History] Furosemide [Lasix] 40 mg PEG/G-TUBE DAILY 10/08/18 [History] Lactulose [Cephulac] 20 gm PEG/G-TUBE DAILY PRN 10/08/18 [History] Latanoprost [Xalatan 0.005%] 1 drop BOTH EYES HS 10/08/18 [History] Valproic Acid Oral Soln [Depakene Syrup] 250 mg PEG/G-TUBE QAM 10/08/18 [History] Valproic Acid Oral Soln [Depakene Syrup] 375 mg PEG/G-TUBE HS 10/08/18 [History] Fluticasone Nasal [place] [Flonase Nasal [place]] 1 spray EA NOSTRIL DAILY 01/28/19 [History] Acetaminophen [Tylenol Extra Strength] 500 mg PEG/G-TUBE TID PRN 03/14/19 [History] Acetaminophen [Tylenol] 500 mg PO Q4-6H PRN #30 tab 03/14/19 [Rx] Apixaban [Eliquis] 5 mg PEG/G-TUBE BID 03/14/19 [History] Cranberry Fruit Concentrate [Azo Cranberry] 250 mg PEG/G-TUBE DAILY 03/14/19 [History] Docusate Oral Soln [Colace Oral Soln] 100 mg PEG/G-TUBE DAILY 03/14/19 [History] Metoprolol Tartrate [Lopressor] 25 mg PEG/G-TUBE BID 03/14/19 [History] Mucus Relief 400mg 400 mg PO BID 03/14/19 [History] Follow up Appointment(s)/Referral(s): Milagros Mayberry MD [STAFF PHYSICIAN] - 04/09/19 5:15 pm Patient Instructions/Handouts: *[facility] - (Anesthesia) Endoscopy Discharge Instructions, Upper Endoscopy (DC), Esophageal Dilation (DC) Discharge Disposition: HOME SELF-CARE
--- NOTE | 2019-03-28 17:55 | CDI ---
Date: 03/28/19 CDS/Data Warehousing Architect Name: Gin De Luna Phone: if any questions, call Shamar Hyman at [phone] Patient Name: Zoraida Holloway Admit Date: 03/22/19 Discharge date: 03/22/19 ATTENTION: The [facility] Coding Staff appreciate you assistance in clarifying documentation. Please respond to the clarification below the line at the bottom and electronically sign. The [facility] coding Staff with review the response and follow-up if needed. Please note: Queries are made part of the Legal Health Record. If you have any questions, pleas contact the Echo Technician. Dear. Dr. Mayberry, Please provide clarification as to whether a biopsy was performed. On the operative note under Description, Biopsies with cold forceps were obtained from the antrum is documented. There is no pathology report on the chart nor one pending. Please clarify. Thank you for your kind consideration. Biopsies with cold forceps were NOT obtained of the antrum. GREGORY 03/31/19 @17:15 [facility]ITAL[facility]unc[facility]
== END 2019-03-22 13:18 | disposition home or self-care (01) ==
LOC: ORWHC2ENDO 10:45
PROVIDERS: ATTEND Surgery Plastic and Reconstructive Surgery
DX: K22.10 Ulcer of esophagus without bleeding (principal); K22.2 Esophageal obstruction; Z93.1 Gastrostomy status; K44.9 Diaphragmatic hernia without obstruction or gangrene; K29.50 Unspecified chronic gastritis without bleeding; I11.0 Hypertensive heart disease with heart failure; I50.9 Heart failure, unspecified; I34.1 Nonrheumatic mitral (valve) prolapse; E78.5 Hyperlipidemia, unspecified; G40.909 Epilepsy, unspecified, not intractable, without status epilepticus; E07.9 Disorder of thyroid, unspecified; G31.83 Neurocognitive disorder with Lewy bodies; F02.80 Dementia in other diseases classified elsewhere, unspecified severity, without behavioral disturbance, psychotic disturbance, mood disturbance, and anxiety; D64.89 Other specified anemias; Z87.440 Personal history of urinary (tract) infections; I27.20 Pulmonary hypertension, unspecified; Z87.891 Personal history of nicotine dependence; R26.2 Difficulty in walking, not elsewhere classified; R62.50 Unspecified lack of expected normal physiological development in childhood; F25.9 Schizoaffective disorder, unspecified; I35.0 Nonrheumatic aortic (valve) stenosis; Z86.19 Personal history of other infectious and parasitic diseases; Z87.01 Personal history of pneumonia (recurrent); Z96.641 Presence of right artificial hip joint; Z79.01 Long term (current) use of anticoagulants; Z79.82 Long term (current) use of aspirin; Z79.890 Hormone replacement therapy; Z79.51 Long term (current) use of inhaled steroids; Z79.899 Other long term (current) drug therapy; Z88.2 Allergy status to sulfonamides
CPT/HCPCS: 43249; J2704; C1726

== ENCOUNTER → 2019-10-22 | Outpatient (CLI) | payer MEDICARE, OTHER | END | disposition home or self-care (01) | LOC: LABWHC1 11:00 | PROVIDERS: ATTEND Surgery Plastic and Reconstructive Surgery | DX: Z11.59 Encounter for screening for other viral diseases (principal) | CPT/HCPCS: 87635 ==

== ENCOUNTER 2019-10-24 10:06 | Day surgery (SDC) | payer MEDICARE, OTHER ==
[2019-10-23 12:48] VITALS: BMI 21.5
--- NOTE | 2019-10-23 19:39 | P.GSHP ---
History of Present Illness H&P Date: 10/24/19 CHIEF COMPLAINT: Dysphagia HISTORY OF PRESENT ILLNESS: The patient is a 79-year-old female who presents with dysphagia. Upper endoscopy was offered for further evaluation and management. PAST MEDICAL HISTORY: Please see list. PAST SURGICAL HISTORY: Please see list. MEDICATIONS: Please see list. ALLERGIES: Please see list. SOCIAL HISTORY: No illicit drug use FAMILY HISTORY: No reports of Crohn disease or ulcerative colitis. REVIEW OF ORGAN SYSTEMS: CONSTITUTIONAL: No reports of fevers or chills. GI: Denies any blood in stools or constipation. PHYSICAL EXAM: VITAL SIGNS: Stable GENERAL: Well-developed and pleasant in no acute distress. HEENT: No scleral icterus. Extraocular movements grossly intact. Moist buccal mucosa. NECK: Supple without lymphadenopathy. CHEST: Unlabored respirations. Equal bilateral excursions. CARDIOVASCULAR: Regular rate and rhythm. Distal 2+ pulses. ABDOMEN: Soft, nondistended. MUSCULOSKELETAL: No clubbing, cyanosis, or edema. ASSESSMENT: 1. Dysphagia PLAN: 1. Recommend proceeding with an upper endoscopy and dilation Past Medical History Past Medical History: Atrial Fibrillation, Asthma, Heart Failure, Dementia, Hyperlipidemia, Hypertension, Mitral Valve Prolapse (MVP), Seizure Disorder, Skin Disorder, Thyroid Disorder Additional Past Medical History / Comment(s): Parkinson's disease, dementia, developmental delay, schizoaffective disorder, seizure disorder (last seizure 2017), chronic anemia, hx fx left tibia., recurrent UTIs, hx of septic shock secondary to pneumonia, difficulty with mobility- can stand to pivot transfer with assistance., difficulties with comprehension, hypothyroidism, aortic stenosis , hx pulmonary hypertension. , has peg tube-was taking some oral diet for pleasure but is having difficulty swallowing with vomiting now., Incontinent of urine & stool, transitional care manager states 2 bedsores-one on left side by buttocks & leg that is healing but moist, one on her right back area is healing. History of Any Multi-Drug Resistant Organisms: None Reported Past Surgical History: Joint Replacement Additional Past Surgical History / Comment(s): RIGHT HIP, ORIF OF RIGHT ELBOW (09/11/2014)., Peg tube jul 2018 Past Anesthesia/Blood Transfusion Reactions: No Reported Reaction Past Psychological History: Depression, Schizophrenia Additional Psychological History / Comment(s): MENTALLY CHALLENGED Smoking Status: Former smoker Past Alcohol Use History: None Reported Past Drug Use History: None Reported - Past Family History Brother(s) Family Medical History: Seizure Disorder Additional Family Medical History / Comment(s): parkinsons Medications and Allergies Home Medications Medication Instructions Recorded Confirmed Type Albuterol Nebulized [Ventolin 2.5 mg INHALATION RT-BID 09/09/14 10/23/19 History Nebulized] Aspirin 81 mg PEG/G-TUBE DAILY 09/09/14 10/23/19 History Benztropine Mesylate [Cogentin] 0.5 mg PEG/G-TUBE BID 09/09/14 10/23/19 History risperiDONE [RisperDAL] 1 mg PEG/G-TUBE BID 09/09/14 10/23/19 History Atorvastatin [Lipitor] 5 mg PEG/G-TUBE DAILY 06/16/18 10/23/19 History Budesonide [Pulmicort] 0.5 mg INHALATION RT-BID 10/08/18 10/23/19 History Furosemide [Lasix] 40 mg PEG/G-TUBE DAILY 10/08/18 10/23/19 History Latanoprost [Xalatan 0.005%] 1 drop BOTH EYES HS 10/08/18 10/23/19 History Valproic Acid Oral Soln [Depakene 5 ml PEG/G-TUBE QAM 10/08/18 10/23/19 History Syrup] Valproic Acid Oral Soln [Depakene 10 ml PEG/G-TUBE HS 10/08/18 10/23/19 History Syrup] Apixaban [Eliquis] 5 mg PEG/G-TUBE BID 03/14/19 10/23/19 History Cranberry Fruit Concentrate [Azo 250 mg PEG/G-TUBE DAILY 03/14/19 10/23/19 History Cranberry] Metoprolol Tartrate [Lopressor] 25 mg PEG/G-TUBE BID 03/14/19 10/23/19 History Mucus Relief 400mg 400 mg PO BID 03/14/19 10/23/19 History Ascorbic Acid [Vitamin C] 500 mg PEG/G-TUBE DAILY 10/23/19 10/23/19 History Benaprotein 1.5 tsp PEG/G-TUBE BID 10/23/19 History Ferroussulfate 220/5ml 7.5 ml PEG/G-TUBE BID 10/23/19 History Levothyroxine Sodium [Synthroid] 175 mcg PEG/G-TUBE DAILY 10/23/19 10/23/19 History Montelukast [Singulair] 5 mg PEG/G-TUBE DAILY 10/23/19 10/23/19 History Allergies Allergy/AdvReac Type Severity Reaction Status Date / Time sulfamethoxazole Allergy Rash/Hives Verified 10/23/19 12:07 [From Bactrim] trimethoprim [From Bactrim] Allergy Rash/Hives Verified 10/23/19 12:07
[~2019-10-24 10:06] MED LIST changes: +LACTATED RINGERS 1,000 ML IV SCH; -LIDOCAINE 1% 20 ML VIAL (10MG/ML) FOR IV START INTRADERMA PRN
[2019-10-24 10:38] VITALS: RESP 16; TEMP 96.9
[2019-10-24] MEDS ORDERED: LIDOCAINE 1% INJ 10MG/ML (20 ML MDV) ONE (11:06)
[2019-10-24] MEDS ORDERED: PROPOFOL 10 MG/ML 20 ML VIAL IV ONE (11:06)
[2019-10-24] MEDS ORDERED: LACTATED RINGERS 1,000 ML IV ONE (11:21)
--- NOTE | 2019-10-24 11:27 | P.PCN ---
Date of Procedure: 10/24/19 Description of Procedure: PREOPERATIVE DIAGNOSIS: Dysphagia. Schizophrenia Esophageal stricture History of gastrostomy to status POSTOPERATIVE DIAGNOSIS: Dysphagia. Schizophrenia Esophageal stricture History of gastrostomy to status Presbyesophagus/esophageal dysmotility Gastritis OPERATION: Esophagogastroduodenoscopy with rigid dilator over the guidewire 48 Fr. SURGEON: Milagros Mayberry MD ANESTHESIA: MAC. INDICATIONS: The patient is a 79-year-old female who presents with a history of dysphagia. Benefits and risks of the procedure were described. Informed consent was obtained. DESCRIPTION: The patient was brought into the endoscopy suite and laid in the left lateral decubitus position. After a timeout was confirmed, the procedure was initiated. An Olympus gastroscope was passed and the stomach was entered. Mild gastritis was identified. The scope was advanced to the duodenum which was unremarkable. Retroflexion the scope confirmed a Hill grade 3 lower esophageal valve. Gastrostomy tube was in place. Next using an Tristanian rigid dilator, a guidewire was placed through the pediatric gastroscope. Next the scope was withdrawn. A 48-Czech rigid Tristanian dilator was passed carefully along the posterior oropharynx to 50 cm and left in place for 2-3 minutes stretch. The dilator was withdrawn including the guidewire. The scope was reentered along the posterior oropharynx with no findings of full-thickness tear of the upper esophageal sphincter. No full-thickness injury was encountered. The GI tract was desufflated. The patient tolerated the procedure well. FINDINGS: Presbyesophagus addressed with rigid dilator 48-Czech completed. Hiatus hernia, 3 cm, 6 Diffuse gastritis. Hill grade 3 lower esophageal valve. No LA grade C esophagitis. RECOMMENDATIONS: Upper endoscopy as needed Diet modification for presbyesophagus Plan - Discharge Summary New Discharge Prescriptions: Continue risperiDONE [RisperDAL] 1 mg PEG/G-TUBE BID Benztropine Mesylate [Cogentin] 0.5 mg PEG/G-TUBE BID Aspirin 81 mg PEG/G-TUBE DAILY Albuterol Nebulized [Ventolin Nebulized] 2.5 mg INHALATION RT-BID Atorvastatin [Lipitor] 5 mg PEG/G-TUBE DAILY Latanoprost [Xalatan 0.005%] 1 drop BOTH EYES HS Furosemide [Lasix] 40 mg PEG/G-TUBE DAILY Valproic Acid Oral Soln [Depakene Syrup] 10 ml PEG/G-TUBE HS Budesonide [Pulmicort] 0.5 mg INHALATION RT-BID Valproic Acid Oral Soln [Depakene Syrup] 5 ml PEG/G-TUBE QAM Mucus Relief 400mg 400 mg PO BID Metoprolol Tartrate [Lopressor] 25 mg PEG/G-TUBE BID Apixaban [Eliquis] 5 mg PEG/G-TUBE BID Cranberry Fruit Concentrate [Azo Cranberry] 250 mg PEG/G-TUBE DAILY Montelukast [Singulair] 5 mg PEG/G-TUBE DAILY Levothyroxine Sodium [Synthroid] 175 mcg PEG/G-TUBE DAILY Ferroussulfate 220/5ml 7.5 ml PEG/G-TUBE BID Ascorbic Acid [Vitamin C] 500 mg PEG/G-TUBE DAILY Benaprotein 1.5 tsp PEG/G-TUBE BID Discharge Medication List Albuterol Nebulized [Ventolin Nebulized] 2.5 mg INHALATION RT-BID 09/09/14 [History] Aspirin 81 mg PEG/G-TUBE DAILY 09/09/14 [History] Benztropine Mesylate [Cogentin] 0.5 mg PEG/G-TUBE BID 09/09/14 [History] risperiDONE [RisperDAL] 1 mg PEG/G-TUBE BID 09/09/14 [History] Atorvastatin [Lipitor] 5 mg PEG/G-TUBE DAILY 06/16/18 [History] Budesonide [Pulmicort] 0.5 mg INHALATION RT-BID 10/08/18 [History] Furosemide [Lasix] 40 mg PEG/G-TUBE DAILY 10/08/18 [History] Latanoprost [Xalatan 0.005%] 1 drop BOTH EYES HS 10/08/18 [History] Valproic Acid Oral Soln [Depakene Syrup] 5 ml PEG/G-TUBE QAM 10/08/18 [History] Valproic Acid Oral Soln [Depakene Syrup] 10 ml PEG/G-TUBE HS 10/08/18 [History] Apixaban [Eliquis] 5 mg PEG/G-TUBE BID 03/14/19 [History] Cranberry Fruit Concentrate [Azo Cranberry] 250 mg PEG/G-TUBE DAILY 03/14/19 [History] Metoprolol Tartrate [Lopressor] 25 mg PEG/G-TUBE BID 03/14/19 [History] Mucus Relief 400mg 400 mg PO BID 03/14/19 [History] Ascorbic Acid [Vitamin C] 500 mg PEG/G-TUBE DAILY 10/23/19 [History] Benaprotein 1.5 tsp PEG/G-TUBE BID 10/23/19 [History] Ferroussulfate 220/5ml 7.5 ml PEG/G-TUBE BID 10/23/19 [History] Levothyroxine Sodium [Synthroid] 175 mcg PEG/G-TUBE DAILY 10/23/19 [History] Montelukast [Singulair] 5 mg PEG/G-TUBE DAILY 10/23/19 [History] Follow up Appointment(s)/Referral(s): Milagros Mayberry MD [STAFF PHYSICIAN] - 11/05/19 Patient Instructions/Handouts: Esophageal Dilation (DC), Esophageal Spasm (GEN) Activity/Diet/Wound Care/Special Instructions: Recommend warm beverages. Avoid cold foods and liquids. START BLOOD THINNER October 25 Discharge Disposition: HOME SELF-CARE
--- NOTE | 2019-10-24 11:29 | P.HPADDEND ---
H&P Addendum H&P Addendum Date: 10/24/19 Information obtained from patient's care provider. Care provider reports troubles with coughing, dysphagia including patient pulling gastrostomy tube with risk of dislodgment. We'll proceed with upper endoscopy with possibility of replacement of gastrostomy tube.
[2019-10-24 11:45] VITALS: BP 111/56; PULSE 63
== END 2019-10-24 12:05 | disposition home or self-care (01) ==
LOC: ORWHC2ENDO 10:06
PROVIDERS: ATTEND Surgery Plastic and Reconstructive Surgery
DX: K22.2 Esophageal obstruction (principal); K22.4 Dyskinesia of esophagus; K22.8 Other specified diseases of esophagus; K29.70 Gastritis, unspecified, without bleeding; K44.9 Diaphragmatic hernia without obstruction or gangrene; I11.0 Hypertensive heart disease with heart failure; I50.9 Heart failure, unspecified; I48.91 Unspecified atrial fibrillation; I27.20 Pulmonary hypertension, unspecified; E78.5 Hyperlipidemia, unspecified; F20.9 Schizophrenia, unspecified; J45.909 Unspecified asthma, uncomplicated; G20 Parkinson's disease; F02.80 Dementia in other diseases classified elsewhere, unspecified severity, without behavioral disturbance, psychotic disturbance, mood disturbance, and anxiety; D64.9 Anemia, unspecified; Z93.1 Gastrostomy status; G40.909 Epilepsy, unspecified, not intractable, without status epilepticus; I34.1 Nonrheumatic mitral (valve) prolapse; R62.50 Unspecified lack of expected normal physiological development in childhood; F32.9 Major depressive disorder, single episode, unspecified; E03.9 Hypothyroidism, unspecified; Z79.01 Long term (current) use of anticoagulants; Z79.51 Long term (current) use of inhaled steroids; Z79.82 Long term (current) use of aspirin; Z79.899 Other long term (current) drug therapy; Z88.2 Allergy status to sulfonamides; Z87.440 Personal history of urinary (tract) infections; Z87.891 Personal history of nicotine dependence; Z96.641 Presence of right artificial hip joint; Z79.890 Hormone replacement therapy; Z82.0 Family history of epilepsy and other diseases of the nervous system
CPT/HCPCS: 43249; J2001; J2704

== ENCOUNTER 2020-06-09 15:47 | Emergency (ER) | payer MEDICARE, OTHER ==
[2020-06-09 15:52] VITALS: TEMP 97.4
[2020-06-09] MEDS ORDERED: ONDANSETRON 4 MG/2 ML VIAL IVP STA (16:13)
[2020-06-09] MEDS ORDERED: SODIUM CHLORIDE 0.9% 1,000 ML IV STA (16:13)
[2020-06-09] MEDS ORDERED: PANTOPRAZOLE 40 MG/10 ML VIAL IVP STA (16:13)
--- NOTE | 2020-06-09 16:20 | ED ---
General Adult HPI - General Chief complaint: Nausea/Vomiting/Diarrhea Stated complaint: Vomiting Time Seen by Provider: 06/09/20 16:00 Source: RN notes reviewed, Caregiver Mode of arrival: wheelchair Limitations: altered mental status - History of Present Illness Initial comments: Patient is a pleasant 80-year-old female presenting to the emergency department with push button switch assembler. Patient is on palliative care secondary to multiple chronic medical problems. Patient did vomit several times through the weekend. Patient also vomited twice today. Second time was somewhat dark and they did bring a sample in. Patient is on Eliquis secondary to history of atrial fibrillation. Patient is a poor historian and passed majority of history is taken from the push button switch assembler. - Related Data Home Medications Medication Instructions Recorded Confirmed Albuterol Nebulized [Ventolin 2.5 mg INHALATION RT-BID 09/09/14 10/24/19 Nebulized] Aspirin 81 mg PEG/G-TUBE DAILY 09/09/14 10/24/19 Benztropine Mesylate [Cogentin] 0.5 mg PEG/G-TUBE BID 09/09/14 10/24/19 risperiDONE [RisperDAL] 1 mg PEG/G-TUBE BID 09/09/14 10/24/19 Atorvastatin [Lipitor] 5 mg PEG/G-TUBE DAILY 06/16/18 10/24/19 Budesonide [Pulmicort] 0.5 mg INHALATION RT-BID 10/08/18 10/24/19 Furosemide [Lasix] 40 mg PEG/G-TUBE DAILY 10/08/18 10/24/19 Latanoprost [Xalatan 0.005%] 1 drop BOTH EYES HS 10/08/18 10/24/19 Valproic Acid Oral Soln [Depakene 5 ml PEG/G-TUBE QAM 10/08/18 10/24/19 Syrup] Valproic Acid Oral Soln [Depakene 10 ml PEG/G-TUBE HS 10/08/18 10/24/19 Syrup] Apixaban [Eliquis] 5 mg PEG/G-TUBE BID 03/14/19 10/24/19 Cranberry Fruit Concentrate [Azo 250 mg PEG/G-TUBE DAILY 03/14/19 10/24/19 Cranberry] Metoprolol Tartrate [Lopressor] 25 mg PEG/G-TUBE BID 03/14/19 10/24/19 Mucus Relief 400mg 400 mg PO BID 03/14/19 10/24/19 Ascorbic Acid [Vitamin C] 500 mg PEG/G-TUBE DAILY 10/23/19 10/24/19 Benaprotein 1.5 tsp PEG/G-TUBE BID 10/23/19 10/24/19 Ferroussulfate 220/5ml 7.5 ml PEG/G-TUBE BID 10/23/19 10/24/19 Levothyroxine Sodium [Synthroid] 175 mcg PEG/G-TUBE DAILY 10/23/19 10/24/19 Montelukast [Singulair] 5 mg PEG/G-TUBE DAILY 10/23/19 10/24/19 Allergies Allergy/AdvReac Type Severity Reaction Status Date / Time sulfamethoxazole Allergy Rash/Hives Verified 06/09/20 15:53 [From Bactrim] trimethoprim [From Bactrim] Allergy Rash/Hives Verified 06/09/20 15:53 Review of Systems ROS Statement: Those systems with pertinent positive or pertinent negative responses have been documented in the HPI. ROS Other: All systems not noted in ROS Statement are negative. Limitations: ROS unobtainable due to patients medical condition Gastrointestinal: Reports: vomiting. Denies: abdominal pain Past Medical History Past Medical History: Atrial Fibrillation, Heart Failure, Dementia, Hyperlipidemia, Hypertension, Mitral Valve Prolapse (MVP), Seizure Disorder, Thyroid Disorder Additional Past Medical History / Comment(s): History of Parkinson's disease, dementia, developmental delay, schizoaffective disorder, seizure disorder, chronic anemia, recurrent UTIs, recent hospitalization for septic shock secondary to underlying pneumonia, difficulty with mobility and gait and the pat ient has a gait dysfunction, hypertension, hyperlipidemia, difficulties with comprehension, hypothyroidism, moderate degree of aortic stenosis with a preserved LV function and ejection fraction of 50-55% and the patient has moderate pulmonary hypertension with a PA pressure of 49. History of Any Multi-Drug Resistant Organisms: MRSA Date of last positivie culture/infection: 01/20/20 MDRO Source:: MRSA BUTTOCK Past Surgical History: Joint Replacement Additional Past Surgical History / Comment(s): RIGHT HIP, ORIF OF RIGHT ELBOW (09/11/2014). Past Anesthesia/Blood Transfusion Reactions: No Reported Reaction Past Psychological History: Depression, Schizophrenia Past Alcohol Use History: None Reported Past Drug Use History: None Reported - Past Family History Brother(s) Family Medical History: Seizure Disorder Additional Family Medical History / Comment(s): parkinsons General Exam Limitations: altered mental status General appearance: alert, in no apparent distress Head exam: Present: atraumatic, normocephalic Eye exam: Present: normal appearance Neck exam: Present: normal inspection Respiratory exam: Present: normal lung sounds bilaterally Cardiovascular Exam: Present: regular rate, normal rhythm GI/Abdominal exam: Present: soft, normal bowel sounds. Absent: distended, tenderness, guarding, rebound, rigid, pulsatile mass Extremities exam: Present: normal inspection. Absent: pedal edema, calf tenderness Neurological exam: Present: alert Psychiatric exam: Present: normal affect, normal mood Skin exam: Present: normal color Course Vital Signs 06/09/20 06/09/20 15:48 17:49 Temperature 97.4 F L Pulse Rate 73 87 Respiratory 16 18 Rate Blood Pressure 116/61 113/65 O2 Sat by Pulse 97 98 Oximetry EKG Findings - EKG Comments: EKG Findings:: Normal sinus rhythm at 65. GA 158. QRS 90. QT 410. QTc 426. Normal axis. LVH with repolarization change. Medical Decision Making - Medical Decision Making Patient reevaluated and resting comfortably in bed. Patient and push button switch assembler updated on results. They do have Zofran at home. - Lab Data Result diagrams: 06/09/20 16:16 06/09/20 16:16 Lab Results 06/09/20 06/09/20 06/09/20 Range/Units 16:16 16:16 16:16 WBC 11.0 H (3.8-10.6) k/uL RBC 4.17 (3.80-5.40) m/uL Hgb 10.4 L (11.4-16.0) gm/dL Hct 32.0 L (34.0-46.0) % MCV 76.7 L (80.0-100.0) fL MCH 25.0 (25.0-35.0) pg MCHC 32.7 (31.0-37.0) g/dL RDW 19.0 H (11.5-15.5) % Plt Count 340 (150-450) k/uL MPV 6.8 Neutrophils % 65 % Lymphocytes % 24 % Monocytes % 5 % Eosinophils % 5 % Basophils % 1 % Neutrophils # 7.2 (1.3-7.7) k/uL Lymphocytes # 2.6 (1.0-4.8) k/uL Monocytes # 0.6 (0-1.0) k/uL Eosinophils # 0.5 (0-0.7) k/uL Basophils # 0.1 (0-0.2) k/uL Anisocytosis Slight Microcytosis Slight PT 10.3 (9.0-12.0) sec INR 1.0 (<1.2) APTT 24.1 (22.0-30.0) sec Sodium 129 L (137-145) mmol/L Potassium 4.8 (3.5-5.1) mmol/L Chloride 93 L (98-107) mmol/L Carbon Dioxide 28 (22-30) mmol/L Anion Gap 8 mmol/L BUN 36 H (7-17) mg/dL Creatinine 0.46 L (0.52-1.04) mg/dL Est GFR (CKD-EPI)AfAm >90 (>60 ml/min/1.73 sqM) Est GFR (CKD-EPI)NonAf >90 (>60 ml/min/1.73 sqM) Glucose 96 (74-99) mg/dL Calcium 9.2 (8.4-10.2) mg/dL Total Bilirubin 0.3 (0.2-1.3) mg/dL AST 38 H (14-36) U/L ALT 20 (4-34) U/L Alkaline Phosphatase 147 H (38-126) U/L Troponin I (0.000-0.034) ng/mL Total Protein 7.5 (6.3-8.2) g/dL Albumin 3.4 L (3.5-5.0) g/dL Lipase 101 (23-300) U/L Gastric Occult Blood (Negative) 06/09/20 06/09/20 Range/Units 16:16 16:18 WBC (3.8-10.6) k/uL RBC (3.80-5.40) m/uL Hgb (11.4-16.0) gm/dL Hct (34.0-46.0) % MCV (80.0-100.0) fL MCH (25.0-35.0) pg MCHC (31.0-37.0) g/dL RDW (11.5-15.5) % Plt Count (150-450) k/uL MPV Neutrophils % % Lymphocytes % % Monocytes % % Eosinophils % % Basophils % % Neutrophils # (1.3-7.7) k/uL Lymphocytes # (1.0-4.8) k/uL Monocytes # (0-1.0) k/uL Eosinophils # (0-0.7) k/uL Basophils # (0-0.2) k/uL Anisocytosis Microcytosis PT (9.0-12.0) sec INR (<1.2) APTT (22.0-30.0) sec Sodium (137-145) mmol/L Potassium (3.5-5.1) mmol/L Chloride (98-107) mmol/L Carbon Dioxide (22-30) mmol/L Anion Gap mmol/L BUN (7-17) mg/dL Creatinine (0.52-1.04) mg/dL Est GFR (CKD-EPI)AfAm (>60 ml/min/1.73 sqM) Est GFR (CKD-EPI)NonAf (>60 ml/min/1.73 sqM) Glucose (74-99) mg/dL Calcium (8.4-10.2) mg/dL Total Bilirubin (0.2-1.3) mg/dL AST (14-36) U/L ALT (4-34) U/L Alkaline Phosphatase (38-126) U/L Troponin I <0.012 (0.000-0.034) ng/mL Total Protein (6.3-8.2) g/dL Albumin (3.5-5.0) g/dL Lipase (23-300) U/L Gastric Occult Blood Negative (Negative) - Radiology Data Radiology results: image reviewed (Chest x-ray shows pleural reaction atelectasis left base. Abdominal x-ray shows nonacute abdomen. No bowel obstruction.) Disposition Clinical Impression: Vomiting Disposition: HOME SELF-CARE Condition: Stable Instructions (If sedation given, give patient instructions): Acute Nausea and Vomiting (ED) Additional Instructions: Vomiting as needed. Please follow-up with primary care physician in the next couple of days for recheck. Return for uncontrolled vomiting, fevers, pain, worsening symptoms or other concerns. Is patient prescribed a controlled substance at d/c from ED?: No Referrals: Guillermina Ruff MD [Primary Care Provider] - 1-2 days Time of Disposition: 17:54
[2020-06-09 16:36] LABS: Anisocytosis Slight; Basophils # (A) 0.1 k/uL (0-0.2); Basophils % (A) 1 %; Eosinophils # (A) 0.5 k/uL (0-0.7); Eosinophils % (A) 5 %; HGB 10.4 gm/dL (11.4-16.0); Lymphocytes # (A) 2.6 k/uL (1.0-4.8); Lymphocytes % (A) 24 %; MCHC 32.7 g/dL (31.0-37.0); MCV 76.7 fL (80.0-100.0); Mean Platelet Volume 6.8; Microcytosis Slight; Monocytes # (A) 0.6 k/uL (0-1.0); Monocytes % (A) 5 %; Neutrophils # (A) 7.2 k/uL (1.3-7.7); Neutrophils % (A) 65 %; Platelet Count 340 k/uL (150-450); RBC 4.17 m/uL (3.80-5.40)
[2020-06-09 16:44] LABS: Partial Thromboplastin Time 24.1 sec (22.0-30.0); Prothrombin Time 10.3 sec (9.0-12.0)
[2020-06-09 16:46] LABS: ALT 20 U/L (4-34); AST 38 U/L (14-36); African American GFR (CKD) >90 (>60 ml/min/1.73 sqM); Albumin 3.4 g/dL (3.5-5.0); Alkaline Phosphatase 147 U/L (38-126); Anion Gap 8 mmol/L; Blood Urea Nitrogen 36 mg/dL (7-17); Calcium 9.2 mg/dL (8.4-10.2); Carbon Dioxide 28 mmol/L (22-30); Chloride 93 mmol/L (98-107); Glucose 96 mg/dL (74-99); Lipase 101 U/L (23-300); Non-African American GFR(CKD) >90 (>60 ml/min/1.73 sqM); Potassium 4.8 mmol/L (3.5-5.1); Sodium 129 mmol/L (137-145); Total Bilirubin 0.3 mg/dL (0.2-1.3); Total Protein 7.5 g/dL (6.3-8.2)
--- NOTE | 2020-06-09 17:09 | XR ---
EXAMINATION TYPE: XR abdomen 1V DATE OF EXAM: 06/09/2020 COMPARISON: NONE HISTORY: Vomiting TECHNIQUE: Single view supine FINDINGS: There is no sign of intestinal obstruction or pneumoperitoneum. Fecal pattern is normal. 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 There is intram edullary britney and transverse screw in the proximal femur. There is pseudoarthrosis of the transverse s crew with the acetabulum. There is gastrostomy tube noted. IMPRESSION: Nonacute abdomen. No evidence of a bowel obstruction. No adverse change.
--- NOTE | 2020-06-09 17:11 | XR ---
EXAMINATION TYPE: XR chest 1V portable DATE OF EXAM: 06/09/2020 COMPARISON: 02/07/2019 HISTORY: Cough. Vomiting. TECHNIQUE: Single view FINDINGS: There is some coarsening of the pulmonary interstitial markings. There is no obvious heart failure. Thoracic aorta is atheromatous. There is slight blunting left costophrenic angle. IMPRESSION: There is some pleural reaction and atelectasis left lung base that appears new compared t o old exam. No heart failure.
[2020-06-09] MEDS ORDERED: SODIUM CHLORIDE 0.9% 500 ML 500 ML IV STA (17:42)
[2020-06-09 17:50] VITALS: BP 113/65; PULSE 87; RESP 18
== END 2020-06-09 18:15 | disposition home or self-care (01) ==
LOC: EC 15:47
DX: R11.10 Vomiting, unspecified (principal); I48.91 Unspecified atrial fibrillation; F32.9 Major depressive disorder, single episode, unspecified; F20.9 Schizophrenia, unspecified; I50.9 Heart failure, unspecified; E78.5 Hyperlipidemia, unspecified; I11.0 Hypertensive heart disease with heart failure; G40.909 Epilepsy, unspecified, not intractable, without status epilepticus; E03.9 Hypothyroidism, unspecified; Z79.01 Long term (current) use of anticoagulants; Z79.82 Long term (current) use of aspirin; Z79.899 Other long term (current) drug therapy; Z79.890 Hormone replacement therapy; Z88.2 Allergy status to sulfonamides; Z88.1 Allergy status to other antibiotic agents; Z86.14 Personal history of Methicillin resistant Staphylococcus aureus infection
CPT/HCPCS: 36415; 93005; 80053; 83690; 84484; 85025; 85610; 85730; 82271; 71045; 74018; 99284; 96374; 96375; 96361 ×2; J2405; C9113

== ENCOUNTER 2020-07-30 09:41 | Day surgery (SDC) | payer MEDICARE, OTHER ==
[2020-07-28 16:09] VITALS: BMI 20.5
--- NOTE | 2020-07-30 09:33 | P.GSHP ---
History of Present Illness H&P Date: 07/30/20 CHIEF COMPLAINT: GERD HISTORY OF PRESENT ILLNESS: The patient is a 80-year-old female who presents reports gastroesophageal reflux disease. Upper endoscopy was offered for further evaluation and management. PAST MEDICAL HISTORY: Please see list. PAST SURGICAL HISTORY: Please see list. MEDICATIONS: Please see list. ALLERGIES: Please see list. SOCIAL HISTORY: No illicit drug use FAMILY HISTORY: No reports of Crohn disease or ulcerative colitis. REVIEW OF ORGAN SYSTEMS: CONSTITUTIONAL: No reports of fevers or chills. GI: Denies any blood in stools or constipation. PHYSICAL EXAM: VITAL SIGNS: Stable GENERAL: Well-developed and pleasant in no acute distress. HEENT: No scleral icterus. Extraocular movements grossly intact. Moist buccal mucosa. NECK: Supple without lymphadenopathy. CHEST: Unlabored respirations. Equal bilateral excursions. CARDIOVASCULAR: Regular rate and rhythm. Distal 2+ pulses. ABDOMEN: Soft, nondistended. MUSCULOSKELETAL: No clubbing, cyanosis, or edema. ASSESSMENT: 1. Gastroesophageal reflux disease PLAN: 1. Recommend proceeding with an upper endoscopy Past Medical History Past Medical History: Atrial Fibrillation, Asthma, Blood Disorder, Heart Failure, Dementia, GERD/Reflux, Hyperlipidemia, Hypertension, Mitral Valve Prolapse (MVP), Pneumonia, Seizure Disorder, Skin Disorder, Thyroid Disorder Additional Past Medical History / Comment(s): History Parkinson's disease, dementia, mild developmental delay, schizoaffective disorder, seizure x1 2018, chronic anemia, recurrent UTIs, uses w/c with assist, hypothyroidism, moderate degree aortic stenosis w/preserved LV function, ejection fraction of 50-55%, moderate pulmonary hypertension. Wound lt buttock, homecare 3x per wk. Has peg tube, hx esophagus collapses History of Any Multi-Drug Resistant Organisms: MRSA Date of last positivie culture/infection: 01/20/20 MDRO Source:: MRSA BUTTOCK Past Surgical History: Joint Replacement Additional Past Surgical History / Comment(s): RIGHT HIP; ORIF OF RIGHT ELBOW (09/11/2014) - later to remove pins. Peg tube. EGD. Past Anesthesia/Blood Transfusion Reactions: No Reported Reaction Smoking Status: Former smoker - Past Family History Brother(s) Family Medical History: Seizure Disorder Additional Family Medical History / Comment(s): parkinsons Sister(s) Family Medical History: Cancer Medications and Allergies Home Medications Medication Instructions Recorded Confirmed Type Aspirin 81 mg PEG/G-TUBE MOWEFR 09/09/14 07/28/20 History Benztropine Mesylate [Cogentin] 0.5 mg PEG/G-TUBE DAILY 09/09/14 07/28/20 History risperiDONE [RisperDAL] 1 mg PEG/G-TUBE BID 09/09/14 07/28/20 History Atorvastatin [Lipitor] 10 mg PEG/G-TUBE DAILY 06/16/18 07/28/20 History Budesonide [Pulmicort] 0.5 mg INHALATION RT-BID 10/08/18 07/28/20 History Furosemide [Lasix] 40 mg PEG/G-TUBE DAILY 10/08/18 07/28/20 History Latanoprost [Xalatan 0.005%] 1 drop BOTH EYES HS 10/08/18 07/28/20 History Valproic Acid Oral Soln [Depakene 250 mg PEG/G-TUBE DAILY 10/08/18 07/28/20 History Syrup] Valproic Acid Oral Soln [Depakene 500 mg PEG/G-TUBE HS 10/08/18 07/28/20 History Syrup] Apixaban [Eliquis] 2.5 mg PEG/G-TUBE BID 03/14/19 07/28/20 History Metoprolol Tartrate [Lopressor] 12.5 mg PEG/G-TUBE BID 03/14/19 07/28/20 History Levothyroxine Sodium [Synthroid] 175 mcg PEG/G-TUBE DAILY 10/23/19 07/28/20 History Albuterol Nebulized [Ventolin 2.5 mg INHALATION RT-BID PRN 06/09/20 07/28/20 History Nebulized] Cholecalciferol (Vitamin D3) 500 unit PEG/G-TUBE DAILY 06/09/20 07/28/20 History [Vitamin D3] Ferrous Sulfate [Feosol] 325 mg PEG/G-TUBE DAILY 06/09/20 07/28/20 History Fluticasone Nasal Devol [Flonase 2 spr EA NOSTRIL HS 06/09/20 07/28/20 History Nasal Devol] Lactulose [Constulose] 10 gm PEG/G-TUBE DAILY 06/09/20 07/28/20 History Montelukast Chew [Singulair Chew] 5 mg PEG/G-TUBE HS 06/09/20 07/28/20 History Multivitamins, Thera Liquid 15 ml PEG/G-TUBE DAILY@1200 06/09/20 07/28/20 History [Theragran Liquid (formulary)] Prostat 30 ml PEG/G-TUBE DAILY@1200 06/09/20 07/28/20 History Wheat Dextrin [Benefiber] 2 tsp PEG/G-TUBE QID@08,12,16,20 06/09/20 07/28/20 History ondansetron HCL [Zofran] 8 mg PEG/G-TUBE BID PRN 06/09/20 07/28/20 History Loratadine [Claritin] 10 mg PEG/G-TUBE DAILY 07/28/20 07/28/20 History guaiFENesin [Mucinex] 400 mg PO Q12HR PRN 07/28/20 07/28/20 History Allergies Allergy/AdvReac Type Severity Reaction Status Date / Time sulfamethoxazole Allergy Rash/Hives Verified 07/28/20 15:37 [From Bactrim] trimethoprim [From Bactrim] Allergy Rash/Hives Verified 07/28/20 15:37
[~2020-07-30 09:41] MED LIST changes: +LIDOCAINE 1% (10MG/ML) FOR IV START INTRADERMA PRN
[2020-07-30] MEDS ORDERED: LACTATED RINGERS 1,000 ML IV ONE ×2 (10:02)
[2020-07-30 10:29] VITALS: RESP 16; TEMP 97
[2020-07-30] MEDS ORDERED: LIDOCAINE 1% INJ 10MG/ML (20 ML MDV) ONE (10:31)
[2020-07-30] MEDS ORDERED: PROPOFOL 10 MG/ML 20 ML VIAL IV ONE (10:31)
--- NOTE | 2020-07-30 11:05 | P.PCN ---
Date of Procedure: 07/30/20 Description of Procedure: PREOPERATIVE DIAGNOSIS: Dysphagia Schizophrenia Esophageal stricture History of gastrostomy to status POSTOPERATIVE DIAGNOSIS: Esophageal stricture Gastritis Diaphragmatic hiatal hernia Duodenitis Dysphagia. Schizophrenia History of gastrostomy to status Presbyesophagus/esophageal dysmotility OPERATION: Esophagogastroduodenoscopy with rigid dilator over the guidewire 54 Fr. SURGEON: Milagros Mayberry MD ANESTHESIA: MAC. INDICATIONS: The patient is a 80-year-old female who presents with a history of dysphagia. Benefits and risks of the procedure were described. Informed consent was obtained. DESCRIPTION: The patient was brought into the endoscopy suite and laid in the left lateral decubitus position. After a timeout was confirmed, the procedure was initiated. An Olympus gastroscope was passed and the stomach was entered. Mild gastritis was identified. The scope was advanced to the duodenum which was remarkable for duodenitis. Retroflexion the scope confirmed a Hill grade 4 lower esophageal valve. Gastrostomy tube was in place. Next using an Macanese rigid dilator, a guidewire was placed through the pediatric gastroscope. Next the scope was withdrawn. A 51-American rigid Macanese dilator was passed carefully along the posterior oropharynx to 50 cm and left in place for 2-3 minutes stretch. The dilator was withdrawn including the guidewire. The scope was reentered along the posterior oropharynx without findings of full-thickness tear of the upper esophageal sphincter or GE junction. Small mucosal defect less than 2 mm along the GE junction was identified. No full-thickness injury was encountered. The GI tract was desufflated. The patient tolerated the procedure well. FINDINGS: Presbyesophagus addressed with rigid dilator 51-American completed. Gastritis along the antrum, mild Hill grade 4 lower esophageal valve. LA grade B esophagitis. Diaphragmatic hiatal hernia, 3 cm RECOMMENDATIONS: Upper endoscopy as needed Plan - Discharge Summary Discharge Rx Participant: No New Discharge Prescriptions: Continue risperiDONE [RisperDAL] 1 mg PEG/G-TUBE BID Benztropine Mesylate [Cogentin] 0.5 mg PEG/G-TUBE DAILY Aspirin 81 mg PEG/G-TUBE MOWEFR Atorvastatin [Lipitor] 10 mg PEG/G-TUBE DAILY Latanoprost [Xalatan 0.005%] 1 drop BOTH EYES HS Furosemide [Lasix] 40 mg PEG/G-TUBE DAILY Valproic Acid Oral Soln [Depakene Syrup] 500 mg PEG/G-TUBE HS Budesonide [Pulmicort] 0.5 mg INHALATION RT-BID Valproic Acid Oral Soln [Depakene Syrup] 250 mg PEG/G-TUBE DAILY Metoprolol Tartrate [Lopressor] 12.5 mg PEG/G-TUBE BID Apixaban [Eliquis] 2.5 mg PEG/G-TUBE BID Levothyroxine Sodium [Synthroid] 175 mcg PEG/G-TUBE DAILY Prostat 30 ml PEG/G-TUBE DAILY@1200 Multivitamins, Thera Liquid [Theragran Liquid (formulary)] 15 ml PEG/G-TUBE DAILY@1200 Wheat Dextrin [Benefiber] 2 tsp PEG/G-TUBE QID@08,12,16,20 Ferrous Sulfate [Iron (65 MG Elemental)] 325 mg PEG/G-TUBE DAILY Albuterol Nebulized [Ventolin Nebulized] 2.5 mg INHALATION RT-BID PRN PRN Reason: Shortness Of Breath ondansetron HCL [Zofran] 8 mg PEG/G-TUBE BID PRN PRN Reason: Nausea Montelukast Chew [Singulair] 5 mg PEG/G-TUBE HS Lactulose [Constulose] 10 gm PEG/G-TUBE DAILY Fluticasone Nasal [place] [Flonase Nasal [place]] 2 spr EA NOSTRIL HS Cholecalciferol (Vitamin D3) [Vitamin D3 (500 Iu/5 ML)] 500 unit PEG/G-TUBE DAILY guaiFENesin [Mucinex] 400 mg PO Q12HR PRN PRN Reason: mucus Loratadine [Claritin] 10 mg PEG/G-TUBE DAILY Discharge Medication List Aspirin 81 mg PEG/G-TUBE MOWEFR 09/09/14 [History] Benztropine Mesylate [Cogentin] 0.5 mg PEG/G-TUBE DAILY 09/09/14 [History] risperiDONE [RisperDAL] 1 mg PEG/G-TUBE BID 09/09/14 [History] Atorvastatin [Lipitor] 10 mg PEG/G-TUBE DAILY 06/16/18 [History] Budesonide [Pulmicort] 0.5 mg INHALATION RT-BID 10/08/18 [History] Furosemide [Lasix] 40 mg PEG/G-TUBE DAILY 10/08/18 [History] Latanoprost [Xalatan 0.005%] 1 drop BOTH EYES HS 10/08/18 [History] Valproic Acid Oral Soln [Depakene Syrup] 250 mg PEG/G-TUBE DAILY 10/08/18 [History] Valproic Acid Oral Soln [Depakene Syrup] 500 mg PEG/G-TUBE HS 10/08/18 [History] Apixaban [Eliquis] 2.5 mg PEG/G-TUBE BID 03/14/19 [History] Metoprolol Tartrate [Lopressor] 12.5 mg PEG/G-TUBE BID 03/14/19 [History] Levothyroxine Sodium [Synthroid] 175 mcg PEG/G-TUBE DAILY 10/23/19 [History] Albuterol Nebulized [Ventolin Nebulized] 2.5 mg INHALATION RT-BID PRN 06/09/20 [History] Cholecalciferol (Vitamin D3) [Vitamin D3 (500 Iu/5 ML)] 500 unit PEG/G-TUBE DAILY 06/09/20 [History] Ferrous Sulfate [Iron (65 MG Elemental)] 325 mg PEG/G-TUBE DAILY 06/09/20 [History] Fluticasone Nasal [place] [Flonase Nasal [place]] 2 spr EA NOSTRIL HS 06/09/20 [History] Lactulose [Constulose] 10 gm PEG/G-TUBE DAILY 06/09/20 [History] Montelukast Chew [Singulair] 5 mg PEG/G-TUBE HS 06/09/20 [History] Multivitamins, Thera Liquid [Theragran Liquid (formulary)] 15 ml PEG/G-TUBE DAILY@1200 06/09/20 [History] Prostat 30 ml PEG/G-TUBE DAILY@1200 06/09/20 [History] Wheat Dextrin [Benefiber] 2 tsp PEG/G-TUBE QID@08,12,16,20 06/09/20 [History] ondansetron HCL [Zofran] 8 mg PEG/G-TUBE BID PRN 06/09/20 [History] Loratadine [Claritin] 10 mg PEG/G-TUBE DAILY 07/28/20 [History] guaiFENesin [Mucinex] 400 mg PO Q12HR PRN 07/28/20 [History] Follow up Appointment(s)/Referral(s): Milagros Mayberry MD [STAFF PHYSICIAN] - As Needed Patient Instructions/Handouts: Esophageal Dilation (DC) Activity/Diet/Wound Care/Special Instructions: DO NOT START BLOOD THINNER UNTIL MONDAY, Jul EXPECT DARK BLOOD IN STOOLS AND COUGHING UP BLOOD THAT SHOULD RESOLVE IN 2 DAYS, AUG 01 DIET TOLERATED Discharge Disposition: HOME SELF-CARE
[2020-07-30 11:39] VITALS: BP 117/74; PULSE 77
== END 2020-07-30 11:40 | disposition home or self-care (01) ==
LOC: ORWHC2ENDO 09:41
PROVIDERS: ATTEND Surgery Plastic and Reconstructive Surgery
DX: K22.2 Esophageal obstruction (principal); K22.8 Other specified diseases of esophagus; K29.70 Gastritis, unspecified, without bleeding; K29.80 Duodenitis without bleeding; Z93.1 Gastrostomy status; K44.9 Diaphragmatic hernia without obstruction or gangrene; I48.91 Unspecified atrial fibrillation; J45.909 Unspecified asthma, uncomplicated; I11.0 Hypertensive heart disease with heart failure; I50.9 Heart failure, unspecified; F03.90 Unspecified dementia, unspecified severity, without behavioral disturbance, psychotic disturbance, mood disturbance, and anxiety; K21.9 Gastro-esophageal reflux disease without esophagitis; E78.5 Hyperlipidemia, unspecified; I34.1 Nonrheumatic mitral (valve) prolapse; Z87.01 Personal history of pneumonia (recurrent); E03.9 Hypothyroidism, unspecified; G20 Parkinson's disease; F25.9 Schizoaffective disorder, unspecified; D64.9 Anemia, unspecified; G47.33 Obstructive sleep apnea (adult) (pediatric); Z99.89 Dependence on other enabling machines and devices; F32.9 Major depressive disorder, single episode, unspecified; Z87.440 Personal history of urinary (tract) infections; I35.0 Nonrheumatic aortic (valve) stenosis; S31.829D Unspecified open wound of left buttock, subsequent encounter; Z86.14 Personal history of Methicillin resistant Staphylococcus aureus infection; Z96.641 Presence of right artificial hip joint; Z87.891 Personal history of nicotine dependence; Z80.9 Family history of malignant neoplasm, unspecified; Z82.0 Family history of epilepsy and other diseases of the nervous system; Z79.01 Long term (current) use of anticoagulants; Z79.82 Long term (current) use of aspirin; Z79.890 Hormone replacement therapy; Z79.51 Long term (current) use of inhaled steroids; Z79.899 Other long term (current) drug therapy; Z88.2 Allergy status to sulfonamides
CPT/HCPCS: 43248; J2001; J2704; 43249

== ENCOUNTER → 2020-09-18 | Outpatient (CLI) | payer MEDICARE, OTHER ==
--- NOTE | 2020-09-18 15:21 | FL ---
EXAMINATION TYPE: FL barium swallow DATE OF EXAM: 09/18/2020 CLINICAL INDICATION: 80-year-old [facility] patient, vomiting for 2 months. Patient is on thickened pleasure PO intake with PEG feedings due to known aspiration. COMPARISON: None Total Fluoroscopy Time: 1 minute 9 seconds Total images: 38. FINDINGS: The exam is very limited. The patient is unable to stand. Exam performed with the table at a 30 degre e tilt and the patient supported. Patient was unable to tolerate the effervescent granules. Thick liq uid barium was utilized due to the patient's history of aspiration. The patient is kyphotic and the c hin obscures the upper third esophagus. By the end of the exam, mild aspiration is noted in the trach ea. There is extensive irregularity of the esophagus. Unable to determine if this represents mucosal irregularity or extensive tertiary wave contractions. No fixed narrowing. There is a small sliding hi atal hernia demonstrated. IMPRESSION: 1. Very limited exam as above. Mild aspiration is noted. Only thick liquid barium was utilized. 2. Extensive irregularity of the esophageal contour could be secondary to mucosal irregularity such a s from diffuse esophagitis or could be from extensive tertiary peristaltic contractions. Consider dir ect visualization. 3. Small sliding hiatal hernia.
== END | disposition home or self-care (01) ==
LOC: RADUSWWP 08:33
PROVIDERS: ATTEND Surgery Plastic and Reconstructive Surgery
DX: K44.9 Diaphragmatic hernia without obstruction or gangrene (principal)
CPT/HCPCS: 74220

== ENCOUNTER 2020-09-28 14:41 | Emergency (ER) | payer MEDICARE, OTHER ==
[2020-09-28 14:59] VITALS: RESP 18; TEMP 98
--- NOTE | 2020-09-28 15:05 | ED ---
General Adult HPI - General Chief complaint: Nausea/Vomiting/Diarrhea Stated complaint: abd mass Time Seen by Provider: 09/28/20 14:47 Source: EMS Mode of arrival: EMS Limitations: altered mental status, physical limitation - History of Present Illness Initial comments: Dictation was produced using [employer] dictation software. please excuse any gramm atical, word or spelling errors. This patient was cared for during a federal and state declared state of emergency secondary to Covid 19 Chief Complaint: 80-year-old female brought in by rn or lpn for nausea vomiting and left abdominal abnormality History of Present Illness: She is 80-year-old female she is brought in by rn or lpn. She has multiple comorbidities. She has history of A. fib, heart failure, dementia, hypertension. Her caretakers noticed yesterday that she had induration to the left abdominal pannus area patient has any complaints at this time. It is not red. They contacted nurse practitioner who was posted an ultrasound however the nurse practitioner was able unable to do so and instead directed patient come to the emergency department for evaluation. Patient has no complaints at this time. Flexible Babysitter at bedside reports that patient appears to be at baseline. She does not ambulate. She is on multiple medications. The ROS documented in this emergency department record has been reviewed and confirmed by me. Those systems with pertinent positive or negative responses have been documented in the HPI. All other systems are other negative and/or no ncontributory. PHYSICAL EXAM: General Impression: Alert and oriented x3, not in acute distress HEENT: Normocephalic atraumatic, extra-ocular movements intact, pupils equal and reactive to light bilaterally, mucous membranes moist. Cardiovascular: Heart regular rate and rhythm Chest: Able to complete full sentences, no retractions, no tachypnea Abdomen: abdomen soft, non-tender, non-distended, no organomegaly, there is some mild induration to the left side of the pannus. It is not erythematous or painful. Musculoskeletal: Pulses present and equal in all extremities, no peripheral edema Motor: no focal deficits noted Neurological: CN II-XII grossly intact, no focal motor or sensory deficits noted Skin: Intact with no visualized rashes Psych: Normal affect and mood ED course: 80-year-old female presents to the emergency department for chief complaint of abdominal skin abnormality. Vital signs upon arrival are within acceptable limits. Abdominal examination is benign. Patient is well-appearing at bedside. Laboratory evaluation obtained showing no significant abnormalities. Of note there is even a 48 with a creatinine of 0.43. This reflects some dehydration. Abdominal x-rays unremarkable. Patient reevaluated bedside at 3:50 PM in stable medical condition. Patient be discharged home. EKG interpretation: Ventricular rate 70, sinus rhythm,. Interval to 24, QRS 94, QTC 446. No RI prolongation, no QTC prolongation, no ST or T-wave changes noted. EKG compared to 06/09/2020 showing no changes. Overall, this EKG is unremarkable - Related Data Home Medications Medication Instructions Recorded Confirmed Aspirin 81 mg PEG/G-TUBE MOWEFR 09/09/14 07/30/20 Benztropine Mesylate [Cogentin] 0.5 mg PEG/G-TUBE DAILY 09/09/14 07/30/20 risperiDONE [RisperDAL] 1 mg PEG/G-TUBE BID 09/09/14 07/30/20 Atorvastatin [Lipitor] 10 mg PEG/G-TUBE DAILY 06/16/18 07/30/20 Budesonide [Pulmicort] 0.5 mg INHALATION RT-BID 10/08/18 07/30/20 Furosemide [Lasix] 40 mg PEG/G-TUBE DAILY 10/08/18 07/30/20 Latanoprost [Xalatan 0.005%] 1 drop BOTH EYES HS 10/08/18 07/30/20 Valproic Acid Oral Soln [Depakene 250 mg PEG/G-TUBE DAILY 10/08/18 07/30/20 Syrup] Valproic Acid Oral Soln [Depakene 500 mg PEG/G-TUBE HS 10/08/18 07/30/20 Syrup] Apixaban [Eliquis] 2.5 mg PEG/G-TUBE BID 03/14/19 07/30/20 Metoprolol Tartrate [Lopressor] 12.5 mg PEG/G-TUBE BID 03/14/19 07/30/20 Levothyroxine Sodium [Synthroid] 175 mcg PEG/G-TUBE DAILY 10/23/19 07/30/20 Albuterol Nebulized [Ventolin 2.5 mg INHALATION RT-BID PRN 06/09/20 07/30/20 Nebulized] Cholecalciferol (Vitamin D3) 500 unit PEG/G-TUBE DAILY 06/09/20 07/30/20 [Vitamin D3 (500 Iu/5 ML)] Ferrous Sulfate [Iron (65 MG 325 mg PEG/G-TUBE DAILY 06/09/20 07/30/20 Elemental)] Fluticasone Nasal [place] [Flonase 2 spr EA NOSTRIL HS 06/09/20 07/30/20 Nasal [place]] Lactulose [Constulose] 10 gm PEG/G-TUBE DAILY 06/09/20 07/30/20 Montelukast Chew [Singulair] 5 mg PEG/G-TUBE HS 06/09/20 07/30/20 Multivitamins, Thera Liquid 15 ml PEG/G-TUBE DAILY@1200 06/09/20 07/30/20 [Theragran Liquid (formulary)] Prostat 30 ml PEG/G-TUBE DAILY@1200 06/09/20 07/30/20 Wheat Dextrin [Benefiber] 2 tsp PEG/G-TUBE QID@08,12,16,20 06/09/20 07/30/20 ondansetron HCL [Zofran] 8 mg PEG/G-TUBE BID PRN 06/09/20 07/30/20 Loratadine [Claritin] 10 mg PEG/G-TUBE DAILY 07/28/20 07/30/20 guaiFENesin [Mucinex] 400 mg PO Q12HR PRN 07/28/20 07/30/20 Allergies Allergy/AdvReac Type Severity Reaction Status Date / Time sulfamethoxazole Allergy Rash/Hives Verified 09/28/20 14:55 [From Bactrim] trimethoprim [From Bactrim] Allergy Rash/Hives Verified 09/28/20 14:55 Review of Systems ROS Statement: Those systems with pertinent positive or pertinent negative responses have been documented in the HPI. ROS Other: All systems not noted in ROS Statement are negative. Past Medical History Past Medical History: Atrial Fibrillation, Asthma, Blood Disorder, Heart Failure, Dementia, GERD/Reflux, Hyperlipidemia, Hypertension, Mitral Valve Prolapse (MVP), Pneumonia, Seizure Disorder, Skin Disorder, Thyroid Disorder Additional Past Medical History / Comment(s): History Parkinson's disease, duglas ntia, mild developmental delay, schizoaffective disorder, seizure x1 2018, chronic anemia, recurrent UTIs, uses w/c with assist, hypothyroidism, moderate degree aortic stenosis w/preserved LV function, ejection fraction of 50-55%, moderate pulmonary hypertension. Wound lt buttock, homecare 3x per wk. 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 History of Any Multi-Drug Resistant Organisms: MRSA Date of last positivie culture/infection: 01/20/20 MDRO Source:: MRSA BUTTOCK Past Surgical History: Joint Replacement Additional Past Surgical History / Comment(s): RIGHT HIP; ORIF OF RIGHT ELBOW (09/11/2014) - later to remove pins. Peg tube. EGD. Past Anesthesia/Blood Transfusion Reactions: No Reported Reaction Past Psychological History: Depression, Schizophrenia Smoking Status: Former smoker Past Alcohol Use History: None Reported Past Drug Use History: None Reported - Past Family History Brother(s) Family Medical History: Seizure Disorder Additional Family Medical History / Comment(s): parkinsons Sister(s) Family Medical History: Cancer General Exam Limitations: altered mental status, physical limitation Course Vital Signs 09/28/20 14:49 Temperature 98 F Pulse Rate 76 Respiratory 18 Rate Blood Pressure 118/60 O2 Sat by Pulse 93 L Oximetry Medical Decision Making - Lab Data Result diagrams: 09/28/20 15:09 09/28/20 15:09 Lab Results 09/28/20 09/28/20 Range/Units 15:09 15:09 WBC 8.4 (3.8-10.6) k/uL RBC 4.01 (3.80-5.40) m/uL Hgb 11.6 (11.4-16.0) gm/dL Hct 34.8 (34.0-46.0) % MCV 86.9 (80.0-100.0) fL MCH 29.0 (25.0-35.0) pg MCHC 33.4 (31.0-37.0) g/dL RDW 18.1 H (11.5-15.5) % Plt Count 248 (150-450) k/uL MPV 6.9 Neutrophils % 58 % Lymphocytes % 31 % Monocytes % 6 % Eosinophils % 4 % Basophils % 1 % Neutrophils # 4.9 (1.3-7.7) k/uL Lymphocytes # 2.6 (1.0-4.8) k/uL Monocytes # 0.5 (0-1.0) k/uL Eosinophils # 0.3 (0-0.7) k/uL Basophils # 0.1 (0-0.2) k/uL Anisocytosis Slight Sodium 137 (137-145) mmol/L Potassium 5.0 (3.5-5.1) mmol/L Chloride 97 L (98-107) mmol/L Carbon Dioxide 33 H (22-30) mmol/L Anion Gap 7 mmol/L BUN 48 H (7-17) mg/dL Creatinine 0.43 L (0.52-1.04) mg/dL Est GFR (CKD-EPI)AfAm >90 (>60 ml/min/1.73 sqM) Est GFR (CKD-EPI)NonAf >90 (>60 ml/min/1.73 sqM) Glucose 90 (74-99) mg/dL Calcium 9.0 (8.4-10.2) mg/dL Total Bilirubin 0.4 (0.2-1.3) mg/dL AST 48 H (14-36) U/L ALT 27 (4-34) U/L Alkaline Phosphatase 105 (38-126) U/L Total Protein 6.4 (6.3-8.2) g/dL Albumin 3.4 L (3.5-5.0) g/dL Disposition Clinical Impression: Abdominal wall mass Disposition: HOME SELF-CARE Condition: Good Instructions (If sedation given, give patient instructions): Dehydration (ED) Is patient prescribed a controlled substance at d/c from ED?: No Referrals: Satya Casper MD [Primary Care Provider] - 1-2 days Time of Disposition: 15:56
[2020-09-28 15:25] LABS: ALT 27 U/L (4-34); AST 48 U/L (14-36); African American GFR (CKD) >90 (>60 ml/min/1.73 sqM); Albumin 3.4 g/dL (3.5-5.0); Alkaline Phosphatase 105 U/L (38-126); Anion Gap 7 mmol/L; Blood Urea Nitrogen 48 mg/dL (7-17); Carbon Dioxide 33 mmol/L (22-30); Chloride 97 mmol/L (98-107); Glucose 90 mg/dL (74-99); Non-African American GFR(CKD) >90 (>60 ml/min/1.73 sqM); Sodium 137 mmol/L (137-145); Total Bilirubin 0.4 mg/dL (0.2-1.3); Total Protein 6.4 g/dL (6.3-8.2)
--- NOTE | 2020-09-28 15:25 | XR ---
EXAMINATION TYPE: XR abdomen 1V DATE OF EXAM: 09/28/2020 3:16 PM CLINICAL HISTORY: Pain and induration. TECHNIQUE: Two supine KUB images of the abdomen are obtained. COMPARISON: Abdominal x-ray June 09, 2020. CT abdomen and pelvis January 28, 2019. FINDINGS: Stable overlying PEG tube in nondistended stomach. Some paucity of small bowel gas. Visuali zed gas seen in nondistended small bowel loops. Gas along with fecal and contrast material seen in no ndistended colon. The deformity to right hip with surgical hardware redemonstrated. Protrusio acetabu li redemonstrated. Lung bases remain clear. Scattered arterial vascular calcification redemonstrated. IMPRESSION: Overall nonobstructive bowel gas pattern redemonstrated.
[2020-09-28 15:26] LABS: Anisocytosis Slight; Basophils # (A) 0.1 k/uL (0-0.2); Basophils % (A) 1 %; Eosinophils # (A) 0.3 k/uL (0-0.7); Eosinophils % (A) 4 %; HCT 34.8 % (34.0-46.0); HGB 11.6 gm/dL (11.4-16.0); Lymphocytes # (A) 2.6 k/uL (1.0-4.8); Lymphocytes % (A) 31 %; MCHC 33.4 g/dL (31.0-37.0); MCV 86.9 fL (80.0-100.0); Mean Platelet Volume 6.9; Monocytes # (A) 0.5 k/uL (0-1.0); Monocytes % (A) 6 %; Neutrophils # (A) 4.9 k/uL (1.3-7.7); Neutrophils % (A) 58 %; Platelet Count 248 k/uL (150-450); RBC 4.01 m/uL (3.80-5.40); RDW 18.1 % (11.5-15.5); WBC 8.4 k/uL (3.8-10.6)
[2020-09-28 16:12] VITALS: BP 129/79; PULSE 86
== END 2020-09-28 17:25 | disposition home or self-care (01) ==
LOC: EC 14:41
DX: R19.00 Intra-abdominal and pelvic swelling, mass and lump, unspecified site (principal); E78.5 Hyperlipidemia, unspecified; I11.0 Hypertensive heart disease with heart failure; I50.9 Heart failure, unspecified; I48.91 Unspecified atrial fibrillation; J45.909 Unspecified asthma, uncomplicated; K21.9 Gastro-esophageal reflux disease without esophagitis; Z79.82 Long term (current) use of aspirin; Z87.891 Personal history of nicotine dependence; F32.9 Major depressive disorder, single episode, unspecified
CPT/HCPCS: 36415; 74018; 80053; 85025; 93005; 99284

== ENCOUNTER 2020-10-07 07:04 | Day surgery (SDC) | payer MEDICARE, OTHER ==
[2020-10-02 16:21] VITALS: BMI 20.5
[2020-10-07 07:38] VITALS: TEMP 97
[2020-10-07] MEDS ORDERED: PROPOFOL 10 MG/ML 20 ML VIAL IV ONE (08:10)
[2020-10-07] MEDS ORDERED: LIDOCAINE 1% INJ 10MG/ML (20 ML MDV) ONE (08:10)
--- NOTE | 2020-10-07 08:15 | P.GSHP ---
History of Present Illness H&P Date: 10/07/20 CHIEF COMPLAINT: GERD HISTORY OF PRESENT ILLNESS: The patient is a 80-year-old female who presents reports gastroesophageal reflux disease and dysphagia. Upper endoscopy was offered for further evaluation and management. PAST MEDICAL HISTORY: Please see list. PAST SURGICAL HISTORY: Please see list. MEDICATIONS: Please see list. ALLERGIES: Please see list. SOCIAL HISTORY: No illicit drug use FAMILY HISTORY: No reports of Crohn disease or ulcerative colitis. REVIEW OF ORGAN SYSTEMS: CONSTITUTIONAL: No reports of fevers or chills. GI: Denies any blood in stools or constipation. PHYSICAL EXAM: VITAL SIGNS: Stable GENERAL: Well-developed and pleasant in no acute distress. HEENT: No scleral icterus. Extraocular movements grossly intact. Moist buccal mucosa. NECK: Supple without lymphadenopathy. CHEST: Unlabored respirations. Equal bilateral excursions. CARDIOVASCULAR: Regular rate and rhythm. Distal 2+ pulses. ABDOMEN: Soft, nondistended. MUSCULOSKELETAL: No clubbing, cyanosis, or edema. ASSESSMENT: 1. Gastroesophageal reflux disease 2. Dysphagia PLAN: 1. Recommend proceeding with an upper endoscopy with rigid dilation Past Medical History Past Medical History: Atrial Fibrillation, Asthma, Blood Disorder, Heart Failure, Dementia, GERD/Reflux, Hyperlipidemia, Hypertension, Mitral Valve Prolapse (MVP), Pneumonia, Seizure Disorder, Skin Disorder, Thyroid Disorder Additional Past Medical History / Comment(s): History Parkinson's disease, dementia, mild developmental delay, schizoaffective disorder, seizure x1 2018, chronic anemia, recurrent UTIs, uses w/c with assist, hypothyroidism, moderate degree aortic stenosis w/preserved LV function, ejection fraction of 50-55%, moderate pulmonary hypertension. Wound lt buttock, homecare 3x per wk. 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 History of Any Multi-Drug Resistant Organisms: MRSA Date of last positivie culture/infection: 01/20/20 MDRO Source:: MRSA BUTTOCK Past Surgical History: Joint Replacement Additional Past Surgical History / Comment(s): RIGHT HIP; ORIF OF RIGHT ELBOW (09/11/2014) - later to remove pins. Peg tube. EGD. Past Anesthesia/Blood Transfusion Reactions: No Reported Reaction Additional Past Anesthesia/Blood Transfusion Reaction / Comment(s): PEG TUBE HISTORY Additional Past Alcohol Use History / Comment(s): smoked age [age] - Past Family History Brother(s) Family Medical History: Seizure Disorder Additional Family Medical History / Comment(s): parkinsons Sister(s) Family Medical History: Cancer Medications and Allergies Home Medications Medication Instructions Recorded Confirmed Type Aspirin 81 mg PEG/G-TUBE MOWEFR 09/09/14 10/07/20 History risperiDONE [RisperDAL] 1 mg PEG/G-TUBE BID 09/09/14 10/07/20 History Atorvastatin [Lipitor] 10 mg PEG/G-TUBE DAILY 06/16/18 10/07/20 History Budesonide [Pulmicort] 0.5 mg INHALATION RT-BID 10/08/18 10/07/20 History Furosemide [Lasix] 40 mg PEG/G-TUBE DAILY 10/08/18 10/07/20 History Latanoprost [Xalatan 0.005%] 1 drop BOTH EYES HS 10/08/18 10/07/20 History Valproic Acid Oral Soln [Depakene 250 mg PEG/G-TUBE DAILY 10/08/18 10/07/20 Hi story Syrup] Valproic Acid Oral Soln [Depakene 500 mg PEG/G-TUBE DAILY 10/08/18 10/07/20 History Syrup] Apixaban [Eliquis] 2.5 mg PEG/G-TUBE BID 03/14/19 10/07/20 History Metoprolol Tartrate [Lopressor] 12.5 mg PEG/G-TUBE BID 03/14/19 10/07/20 History Levothyroxine Sodium [Synthroid] 175 mcg PEG/G-TUBE DAILY 10/23/19 10/07/20 History Albuterol Nebulized [Ventolin 2.5 mg INHALATION QID 06/09/20 10/07/20 History Nebulized] Fluticasone Nasal [place] [Flonase 2 spr EA NOSTRIL HS 06/09/20 10/07/20 History Nasal [place]] Lactulose [Constulose] 10 gm PEG/G-TUBE DAILY 06/09/20 10/07/20 History Montelukast Chew [Singulair] 5 mg PEG/G-TUBE HS 06/09/20 10/07/20 History Multivitamins, Thera Liquid 15 ml PEG/G-TUBE DAILY@1200 06/09/20 10/07/20 History [Theragran Liquid (formulary)] Prostat 30 ml PEG/G-TUBE DAILY@1200 06/09/20 10/07/20 History Wheat Dextrin [Benefiber] 2 tsp PEG/G-TUBE QID@08,12,16,20 06/09/20 10/07/20 History ondansetron HCL [Zofran] 8 mg PEG/G-TUBE BID PRN 06/09/20 10/07/20 History Loratadine [Claritin] 10 mg PEG/G-TUBE DAILY 07/28/20 10/07/20 History guaiFENesin [Mucinex] 400 mg PO Q12HR PRN 07/28/20 10/07/20 History Allergies Allergy/AdvReac Type Severity Reaction Status Date / Time sulfamethoxazole Allergy Rash/Hives Verified 10/07/20 07:26 [From Bactrim] trimethoprim [From Bactrim] Allergy Rash/Hives Verified 10/07/20 07:26 Surgical - Exam Vital Signs Temp Pulse Resp Pulse Ox 97 F L 84 18 94 L 10/07/20 07:34 10/07/20 07:34 10/07/20 07:34 10/07/20 07:34
--- NOTE | 2020-10-07 08:35 | P.PCN ---
Date of Procedure: 10/07/20 Description of Procedure: PREOPERATIVE DIAGNOSIS: Dysphagia Schizophrenia Esophageal stricture History of gastrostomy to status POSTOPERATIVE DIAGNOSIS: Esophageal stricture Gastritis with recent bleed Gastroesophageal reflux disease with ulcerations of the esophagus Diaphragmatic hiatal hernia Duodenitis Dysphagia. Schizophrenia History of gastrostomy to status Presbyesophagus/esophageal dysmotility OPERATION: Esophagogastroduodenoscopy with rigid dilator over the guidewire 54 Fr. SURGEON: Milagros Mayberry MD ANESTHESIA: MAC. INDICATIONS: The patient is a 80-year-old female who presents with a history of dysphagia. Benefits and risks of the procedure were described. Informed consent was obt ained. DESCRIPTION: The patient was brought into the endoscopy suite and laid in the left lateral decubitus position. After a timeout was confirmed, the procedure was initiated. An Olympus gastroscope was passed and the stomach was entered. Gastritis with recent bleed along the antrum identified. The scope was advanced to the duodenum which was unremarkable for duodenitis. Retroflexion the scope confirmed a Hill grade 4 lower esophageal valve. Gastrostomy tube was in place. Next using an Vietnamese rigid dilator, a guidewire was placed through the pediatric gastroscope. Next the scope was withdrawn. A 54-Nigerian rigid Vietnamese dilator was passed carefully along the posterior oropharynx to 45 cm and left in place for 2-3 minutes stretch. The dilator was withdrawn including the guidewire. The scope was reentered along the posterior oropharynx without findings of full-thickness tear of the upper esophageal sphincter or GE junction. Active esophageal linear erosions over 4 cm found. No full-thickness injury was encountered. The GI tract was desufflated. The patient tolerated the procedure well. FINDINGS: Presbyesophagus addressed with rigid dilator 54-Nigerian completed. Gastrostomy tube intact Hill grade 4 lower esophageal valve. LA grade C esophagitis, 4 cm linear erosions with ulcerations on the esophagus Diaphragmatic hiatal hernia, 3 cm, between 32-35 cm from the incisors Active gastritis with recent bleed RECOMMENDATIONS: Upper endoscopy as needed Omeprazole 40 Mg Daily Plan - Discharge Summary Discharge Rx Participant: No New Discharge Prescriptions: Continue risperiDONE [RisperDAL] 1 mg PEG/G-TUBE BID Aspirin 81 mg PEG/G-TUBE MOWEFR Atorvastatin [Lipitor] 10 mg PEG/G-TUBE DAILY Latanoprost [Xalatan 0.005%] 1 drop BOTH EYES HS Furosemide [Lasix] 40 mg PEG/G-TUBE DAILY Valproic Acid Oral Soln [Depakene Syrup] 500 mg PEG/G-TUBE DAILY Budesonide [Pulmicort] 0.5 mg INHALATION RT-BID Valproic Acid Oral Soln [Depakene Syrup] 250 mg PEG/G-TUBE DAILY Metoprolol Tartrate [Lopressor] 12.5 mg PEG/G-TUBE BID Apixaban [Eliquis] 2.5 mg PEG/G-TUBE BID Levothyroxine Sodium [Synthroid] 175 mcg PEG/G-TUBE DAILY Prostat 30 ml PEG/G-TUBE DAILY@1200 Multivitamins, Thera Liquid [Theragran Liquid (formulary)] 15 ml PEG/G-TUBE DAILY@1200 Wheat Dextrin [Benefiber] 2 tsp PEG/G-TUBE QID@08,12,16,20 Albuterol Nebulized [Ventolin Nebulized] 2.5 mg INHALATION QID ondansetron HCL [Zofran] 8 mg PEG/G-TUBE BID PRN PRN Reason: Nausea Montelukast Chew [Singulair] 5 mg PEG/G-TUBE HS Lactulose [Constulose] 10 gm PEG/G-TUBE DAILY Fluticasone Nasal [place] [Flonase Nasal Burns] 2 spr EA NOSTRIL HS guaiFENesin [Mucinex] 400 mg PO Q12HR PRN PRN Reason: mucus Loratadine [Claritin] 10 mg PEG/G-TUBE DAILY Discharge Medication List Aspirin 81 mg PEG/G-TUBE MOWEFR 09/09/14 [History] risperiDONE [RisperDAL] 1 mg PEG/G-TUBE BID 09/09/14 [History] Atorvastatin [Lipitor] 10 mg PEG/G-TUBE DAILY 06/16/18 [History] Budesonide [Pulmicort] 0.5 mg INHALATION RT-BID 10/08/18 [History] Furosemide [Lasix] 40 mg PEG/G-TUBE DAILY 10/08/18 [History] Latanoprost [Xalatan 0.005%] 1 drop BOTH EYES HS 10/08/18 [History] Valproic Acid Oral Soln [Depakene Syrup] 250 mg PEG/G-TUBE DAILY 10/08/18 [History] Valproic Acid Oral Soln [Depakene Syrup] 500 mg PEG/G-TUBE DAILY 10/08/18 [History] Apixaban [Eliquis] 2.5 mg PEG/G-TUBE BID 03/14/19 [History] Metoprolol Tartrate [Lopressor] 12.5 mg PEG/G-TUBE BID 03/14/19 [History] Levothyroxine Sodium [Synthroid] 175 mcg PEG/G-TUBE DAILY 10/23/19 [History] Albuterol Nebulized [Ventolin Nebulized] 2.5 mg INHALATION QID 06/09/20 [History] Fluticasone Nasal [place] [Flonase Nasal Burns] 2 spr EA NOSTRIL HS 06/09/20 [History] Lactulose [Constulose] 10 gm PEG/G-TUBE DAILY 06/09/20 [History] Montelukast Chew [Singulair] 5 mg PEG/G-TUBE HS 06/09/20 [History] Multivitamins, Thera Liquid [Theragran Liquid (formulary)] 15 ml PEG/G-TUBE DAILY@1200 06/09/20 [History] Prostat 30 ml PEG/G-TUBE DAILY@1200 06/09/20 [History] Wheat Dextrin [Benefiber] 2 tsp PEG/G-TUBE QID@08,12,16,20 06/09/20 [History] ondansetron HCL [Zofran] 8 mg PEG/G-TUBE BID PRN 06/09/20 [History] Loratadine [Claritin] 10 mg PEG/G-TUBE DAILY 07/28/20 [History] guaiFENesin [Mucinex] 400 mg PO Q12HR PRN 07/28/20 [History] Follow up Appointment(s)/Referral(s): Milagros Mayberry MD [STAFF PHYSICIAN] - 10/08/20 Patient Instructions/Handouts: *[facility] - (Anesthesia) Endoscopy Discharge Instructions, Esophageal Dilation (DC) Activity/Diet/Wound Care/Special Instructions: Pureed diet. Start blood thinner October 09 Discharge Disposition: HOME SELF-CARE
[2020-10-07 08:44] VITALS: PULSE 78; RESP 16
[2020-10-07 08:57] VITALS: BP 165/72
== END 2020-10-07 09:21 | disposition home or self-care (01) ==
LOC: ORWHC2ENDO 07:04
PROVIDERS: ATTEND Surgery Plastic and Reconstructive Surgery
DX: K22.2 Esophageal obstruction (principal); K29.71 Gastritis, unspecified, with bleeding; K21.00 Gastro-esophageal reflux disease with esophagitis, without bleeding; K44.9 Diaphragmatic hernia without obstruction or gangrene; K29.80 Duodenitis without bleeding; Z93.1 Gastrostomy status; K22.8 Other specified diseases of esophagus; I48.91 Unspecified atrial fibrillation; J45.909 Unspecified asthma, uncomplicated; I11.0 Hypertensive heart disease with heart failure; I50.9 Heart failure, unspecified; F03.90 Unspecified dementia, unspecified severity, without behavioral disturbance, psychotic disturbance, mood disturbance, and anxiety; E78.5 Hyperlipidemia, unspecified; I34.1 Nonrheumatic mitral (valve) prolapse; Z87.01 Personal history of pneumonia (recurrent); G40.909 Epilepsy, unspecified, not intractable, without status epilepticus; G20 Parkinson's disease; R62.50 Unspecified lack of expected normal physiological development in childhood; F25.9 Schizoaffective disorder, unspecified; D53.9 Nutritional anemia, unspecified; Z87.440 Personal history of urinary (tract) infections; E03.9 Hypothyroidism, unspecified; I35.0 Nonrheumatic aortic (valve) stenosis; I27.20 Pulmonary hypertension, unspecified; F02.80 Dementia in other diseases classified elsewhere, unspecified severity, without behavioral disturbance, psychotic disturbance, mood disturbance, and anxiety; S31.829D Unspecified open wound of left buttock, subsequent encounter; Z86.14 Personal history of Methicillin resistant Staphylococcus aureus infection; Z96.641 Presence of right artificial hip joint; Z98.890 Other specified postprocedural states; Z87.891 Personal history of nicotine dependence; Z82.0 Family history of epilepsy and other diseases of the nervous system; Z79.01 Long term (current) use of anticoagulants; Z79.82 Long term (current) use of aspirin; Z79.890 Hormone replacement therapy; Z79.51 Long term (current) use of inhaled steroids; Z79.899 Other long term (current) drug therapy; Z88.2 Allergy status to sulfonamides
CPT/HCPCS: 43248; J2001; J2704; 43249

== ENCOUNTER 2021-01-18 18:33 | Inpatient (IN) | payer MEDICARE, OTHER ==
[2021-01-18] MEDS ORDERED: cefTRIAXone IN SWFI 1,000 MG/10 ML SYRINGE IVP STA (19:14)
[2021-01-18] MEDS ORDERED: SODIUM CHLORIDE 0.9% 1,000 ML IV STA ×3 (19:15→20:17)
--- NOTE | 2021-01-18 19:22 | ED ---
Seizure HPI - General Source: EMS Mode of arrival: EMS Limitations: altered mental status, physical limitation <Maurice Benavides - Last Filed: 01/18/21 19:17> <Kellen Weathers - Last Filed: 01/18/21 23:26> - General Chief Complaint: Seizure Stated Complaint: Seizure Time Seen by Provider: 01/18/21 19:04 - History of Present Illness Initial Comments: 80-year-old female with history of seizures, A. fib, heart failure, dyslipidemia, hypertension, nonverbal at baseline presenting to emergency Department with a chief complaint of a seizure. Patient lives in her own house and receives 24-hour care. She is currently present with her caregiver states the patient suffered a 4 minute seizure with a postictal state. States there was tonic clonic movements particularly in the hands. States the most recent seizure was in October. Patient is only on Depakote for seizures. Caregiver states the patient has otherwise been not complaining of any other pain, cough, fever, fevers or chills. She states today she had debridement of wound but no other recent events. (Maurice Benavides) - Related Data Home Medications Medication Instructions Recorded Confirmed Aspirin 81 mg PEG/G-TUBE DAILY@79909/09/14 01/18/21 risperiDONE [RisperDAL] 1 mg PEG/G-TUBE BID@799,199909/09/14 01/18/21 Atorvastatin [Lipitor] 10 mg PEG/G-TUBE DAILY@0806/16/18 01/18/21 Furosemide [Lasix] 40 mg PEG/G-TUBE DAILY@79910/08/18 01/18/21 Latanoprost [Xalatan 0.005%] 1 drop BOTH EYES HS@199910/08/18 01/18/21 Valproic Acid Oral Soln [Depakene 500 mg PEG/G-TUBE BID@799,199910/08/18 01/18/21 Syrup] Metoprolol Tartrate [Lopressor] 12.5 mg PEG/G-TUBE BID@799,199903/14/19 01/18/21 Levothyroxine Sodium [Synthroid] 175 mcg PEG/G-TUBE DAILY@59910/23/19 01/18/21 Fluticasone Nasal [place] [Flonase 2 spr EA NOSTRIL HS@199906/09/20 01/18/21 Nasal [place]] Lactulose [Constulose] 10 gm PEG/G-TUBE DAILY@0800 06/09/20 01/18/21 Montelukast Chew [Singulair] 5 mg PEG/G-TUBE HS@199906/09/20 01/18/21 Apixaban [Eliquis] 2.5 mg PEG/G-TUBE BID@08,199901/18/21 01/18/21 Arformoterol Tartrate [Brovana] 15 mcg INHALATION RT-BID@08,199901/18/21 Budesonide [Pulmicort] 0.25 mg INHALATION RT-BID@08,199901/18/21 01/18/21 Omeprazole [PriLOSEC] 40 mg PEG/G-TUBE DAILY@0800 01/18/21 01/18/21 guaiFENesin 400 mg PEG/G-TUBE Q6H PRN 01/18/21 01/18/21 predniSONE 5 mg PEG/G-TUBE DAILY@0800 01/18/21 01/18/21 Allergies Allergy/AdvReac Type Severity Reaction Status Date / Time sulfamethoxazole Allergy Rash/Hives Verified 01/18/21 19:51 [From Bactrim] trimethoprim [From Bactrim] Allergy Rash/Hives Verified 01/18/21 19:51 Review of Systems ROS Other: All systems not noted in ROS Statement are negative. <Maurice Benavides - Last Filed: 01/18/21 19:17> ROS Other: All systems not noted in ROS Statement are negative. <Kellen Weathers - Last Filed: 01/18/21 23:26> ROS Statement: Those systems with pertinent positive or pertinent negative responses have been documented in the HPI. Past Medical History Past Medical History: Atrial Fibrillation, Asthma, Blood Disorder, Heart Failure, Dementia, GERD/Reflux, Hyperlipidemia, Hypertension, Mitral Valve Prolapse (MVP), Pneumonia, Seizure Disorder, Skin Disorder, Thyroid Disorder Additional Past Medical History / Comment(s): History Parkinson's disease, dementia, mild developmental delay, schizoaffective disorder, seizure x1 2018, chronic anemia, recurrent UTIs, uses w/c with assist, hypothyroidism, moderate degree aortic stenosis w/preserved LV function, ejection fraction of 50-55%, moderate pulmonary hypertension. Wound lt buttock, homecare 3x per wk. 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 History of Any Multi-Drug Resistant Organisms: MRSA Date of last positivie culture/infection: 01/20/20 MDRO Source:: MRSA BUTTOCK Past Surgical History: Joint Replacement Additional Past Surgical History / Comment(s): RIGHT HIP; ORIF OF RIGHT ELBOW (09/11/2014) - later to remove pins. Peg tube. EGD. Past Anesthesia/Blood Transfusion Reactions: No Reported Reaction Additional Past Anesthesia/Blood Transfusion Reaction / Comment(s): PEG TUBE HISTORY Past Psychological History: Depression, Schizophrenia Smoking Status: Former smoker - Past Family History Brother(s) Family Medical History: Seizure Disorder Additional Family Medical History / Comment(s): parkinsons Sister(s) Family Medical History: Cancer <Maurice Benavides Last Filed: 01/18/21 19:17> General Exam Limitations: altered mental status, physical limitation General appearance: alert, in no apparent distress Head exam: Present: atraumatic, normocephalic, normal inspection Eye exam: Present: normal appearance Pupils: Present: normal accommodation ENT exam: Present: normal exam Neck exam: Present: normal inspection Respiratory exam: Present: normal lung sounds bilaterally. Absent: respiratory distress, wheezes, rales, rhonchi, stridor, chest wall tenderness Cardiovascular Exam: Present: regular rate, normal rhythm, normal heart sounds GI/Abdominal exam: Present: soft. Absent: distended, tenderness, guarding, rebound Extremities exam: Present: normal inspection, full ROM. Absent: tenderness Back exam: Present: normal inspection, full ROM. Absent: tenderness Neurological exam: Present: altered Skin exam: Present: dry, intact, normal color <Maurice Benavides Last Filed: 01/18/21 19:17> Course Vital Signs 01/18/21 01/18/21 01/18/21 18:39 18:52 19:48 Temperature 95.7 F L Pulse Rate 69 62 Respiratory 18 14 Rate Blood Pressure 136/81 110/49 O2 Sat by Pulse 90 L 93 L 96 Oximetry 01/18/21 01/18/2101/18/21 20:36 21:00 21:20 Temperature Pulse Rate 58 L 67 68 Respiratory 12 12 14 Rate Blood Pressure 77/56 123/54 125/61 O2 Sat by Pulse 99 98 100 Oximetry 01/18/21 01/18/21 01/18/21 21:43 22:06 22:24 Temperature Pulse Rate 57 L 54 L 50 L Respiratory 14 Rate Blood Pressure 117/54 114/60 101/51 O2 Sat by Pulse 100 Oximetry 01/18/21 22:50 Temperature 97.8 F Pulse Rate 51 L Respiratory 14 Rate Blood Pressure 110/75 O2 Sat by Pulse 100 Oximetry Procedures - Intubation Sedative: Etomidate Mg Given: 10 Paralytic: Succinylcholine Mg Given: 50 Laryngoscope: Cristian Size: 4 ET Tube Size: 7 ET Tube Uncuffed: No Tube Secured Depth (cm): 22 Tube Secured Location: teeth Tube Placement Confirmation: visualized tube passing through cords, equal breath sounds bilaterally, no breath sounds over epigastrium, confirmation by capnometry Patient Tolerated Procedure: well Intubation Complications: difficult intubation <Kellen Weathers P - Last Filed: 01/18/21 23:26> Medical Decision Making - Lab Data Result diagrams: 01/18/21 19:38 01/18/21 19:38 <Kellen Weathers P - Last Filed: 01/18/21 23:26> - Medical Decision Making Patient was initially seen and evaluated by Maurice NEAL, 80-year-old patient had pr esented after a seizure at home, patient does have a history of CHF, on arrival the patient had a recurrent seizure she was given Ativan was then noted to be hypoxic and hypotensive. In addition the patient was noted be hypothermic on arrival. Patient's labs were relatively unremarkable aside from urinalysis showing a urinary tract infection and elevated lactic acid which could be due to infection or due to seizure. I was asked to evaluate the patient due to hypotension and hypoxia. Patient was somewhat sedated keeps her neck in a flexed position and appeared to be fluid overloaded. Despite this she was hypotensive. In addition patient was not responding to verbal stimuli from her caregiver like she usually what it was noted to have some fasciculations of her tongue which I was concerned was a subclinical seizure. Given the patient's multiple medical comorbidities, likely need for additional medications to stop seizure and need for IV fluids which I will suspect will result in exacerbation of her congestive heart failure and worsening respiratory status I did feel it was safest to intubate the patient. Public guardian confirm the patient is full code. The patient was taken to the trauma resuscitation bay where she was intubated, oxygenation remained in the high 90s, blood pressure seemed to improve. 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 IV Synthroid was ordered. Patient care was discussed with Dr. serrato and Dr. Lilly who agree with plan f or admission to the ICU for status epilepticus, myxedema coma, urinary tract infection. Patient receiving propofol for sedation, levothyroxine for hypothyroidism Rocephin for urinary tract infection. (Kellen Weathers) - Lab Data Lab Results 01/18/21 01/18/21 01/18/21 Range/Units 19:38 19:38 19:38 WBC 7.9 (3.8-10.6) k/uL RBC 4.04 (3.80-5.40) m/uL Hgb 12.1 (11.4-16.0) gm/dL Hct 36.2 (34.0-46.0) % MCV 89.6 (80.0-100.0) fL MCH 30.1 (25.0-35.0) pg MCHC 33.6 (31.0-37.0) g/dL RDW 16.9 H (11.5-15.5) % Plt Count 315 (150-450) k/uL MPV 7.6 Neutrophils % 69 % Lymphocytes % 25 % Monocytes % 4 % Eosinophils % 1 % Basophils % 1 % Neutrophils # 5.4 (1.3-7.7) k/uL Lymphocytes # 1.9 (1.0-4.8) k/uL Monocytes # 0.3 (0-1.0) k/uL Eosinophils # 0.1 (0-0.7) k/uL Basophils # 0.0 (0-0.2) k/uL Anisocytosis Slight Sodium 131 L (137-145) mmol/L Potassium 4.3 (3.5-5.1) mmol/L Chloride 91 L (98-107) mmol/L Carbon Dioxide 30 (22-30) mmol/L Anion Gap 10 mmol/L BUN 37 H (7-17) mg/dL Creatinine 0.52 (0.52-1.04) mg/dL Est GFR (CKD-EPI)AfAm >90 (>60 ml/min/1.73 sqM) Est GFR (CKD-EPI)NonAf >90 (>60 ml/min/1.73 sqM) Glucose 93 (74-99) mg/dL POC Glucose (mg/dL) (75-99) mg/dL POC Glu Glazier Supervisor ID Lactic Ac Sepsis Rflx Plasma Lactic Acid Jason (0.7-2.0) mmol/L Calcium 9.6 (8.4-10.2) mg/dL Phosphorus 4.6 H (2.5-4.5) mg/dL Magnesium 2.0 (1.6-2.3) mg/dL Total Bilirubin 0.1 L (0.2-1.3) mg/dL AST 54 H (14-36) U/L ALT 34 (4-34) U/L Alkaline Phosphatase 92 (38-126) U/L Total Protein 6.6 (6.3-8.2) g/dL Albumin 4.0 (3.5-5.0) g/dL TSH (0.465-4.680) mIU/L Free T4 (0.78-2.19) ng/dL Urine Color Light Yellow Urine Appearance Clear (Clear) Urine pH 6.5 (5.0-8.0) Ur Specific [place] 1.008 (1.001-1.035) Urine Protein Negative (Negative) Urine Glucose (UA) Negative (Negative) Urine Ketones Negative (Negative) Urine Blood Negative (Negative) Urine Nitrite Negative (Negative) Urine Bilirubin Negative (Negative) Urine Urobilinogen <2.0 (<2.0) mg/dL Ur Leukocyte Esterase Large H (Negative) Urine RBC 2 (0-5) /hpf Urine WBC 22 H (0-5) /hpf Urine Bacteria Occasional H (None) /hpf Hyaline Casts 1 (0-2) /lpf Urine Mucus Rare H (None) /hpf Valproic Acid 92.0 ug/mL Coronavirus (PCR) (Not Detectd) 01/18/21 01/18/21 01/18/21 Range/Units 19:38 19:38 19:38 WBC (3.8-10.6) k/uL RBC (3.80-5.40) m/uL Hgb (11.4-16.0) gm/dL Hct (34.0-46.0) % MCV (80.0-100.0) fL MCH (25.0-35.0) pg MCHC (31.0-37.0) g/dL RDW (11.5-15.5) % Plt Count (150-450) k/uL MPV Neutrophils % % Lymphocytes % % Monocytes % % Eosinophils % % Basophils % % Neutrophils # (1.3-7.7) k/uL Lymphocytes # (1.0-4.8) k/uL Monocytes # (0-1.0) k/uL Eosinophils # (0-0.7) k/uL Basophils # (0-0.2) k/uL Anisocytosis Sodium (137-145) mmol/L Potassium (3.5-5.1) mmol/L Chloride (98-107) mmol/L Carbon Dioxide (22-30) mmol/L Anion Gap mmol/L BUN (7-17) mg/dL Creatinine (0.52-1.04) mg/dL Est GFR (CKD-EPI)AfAm (>60 ml/min/1.73 sqM) Est GFR (CKD-EPI)NonAf (>60 ml/min/1.73 sqM) Glucose (74-99) mg/dL POC Glucose (mg/dL) (75-99) mg/dL POC Glu Glazier Supervisor ID Lactic Ac Sepsis Rflx Plasma Lactic Acid Jason 3.4 H* (0.7-2.0) mmol/L Calcium (8.4-10.2) mg/dL Phosphorus (2.5-4.5) mg/dL Magnesium (1.6-2.3) mg/dL Total Bilirubin (0.2-1.3) mg/dL AST (14-36) U/L ALT (4-34) U/L Alkaline Phosphatase (38-126) U/L Total Protein (6.3-8.2) g/dL Albumin (3.5-5.0) g/dL TSH 25.100 H (0.465-4.680) mIU/L Free T4 2.34 H (0.78-2.19) ng/dL Urine Color Urine Appearance (Clear) Urine pH (5.0-8.0) Ur Specific [place] (1.001-1.035) Urine Protein (Negative) Urine Glucose (UA) (Negative) Urine Ketones (Negative) Urine Blood (Negative) Urine Nitrite (Negative) Urine Bilirubin (Negative) Urine Urobilinogen (<2.0) mg/dL Ur Leukocyte Esterase (Negative) Urine RBC (0-5) /hpf Urine WBC (0-5) /hpf Urine Bacteria (None) /hpf Hyaline Casts (0-2) /lpf Urine Mucus (None) /hpf Valproic Acid ug/mL Coronavirus (PCR) Not Detected (Not Detectd) 01/18/21 01/18/21 01/18/21 Range/Units 20:14 22:50 23:07 WBC (3.8-10.6) k/uL RBC (3.80-5.40) m/uL Hgb (11.4-16.0) gm/dL Hct (34.0-46.0) % MCV (80.0-100.0) fL MCH (25.0-35.0) pg MCHC (31.0-37.0) g/dL RDW (11.5-15.5) % Plt Count (150-450) k/uL MPV Neutrophils % % Lymphocytes % % Monocytes % % Eosinophils % % Basophils % % Neutrophils # (1.3-7.7) k/uL Lymphocytes # (1.0-4.8) k/uL Monocytes # (0-1.0) k/uL Eosinophils # (0-0.7) k/uL Basophils # (0-0.2) k/uL Anisocytosis Sodium (137-145) mmol/L Potassium (3.5-5.1) mmol/L Chloride (98-107) mmol/L Carbon Dioxide (22-30) mmol/L Anion Gap mmol/L BUN (7-17) mg/dL Creatinine (0.52-1.04) mg/dL Est GFR (CKD-EPI)AfAm (>60 ml/min/1.73 sqM) Est GFR (CKD-EPI)NonAf (>60 ml/min/1.73 sqM) Glucose (74-99) mg/dL POC Glucose (mg/dL) 99 (75-99) mg/dL POC Glu Glazier Supervisor ID Aníbal Peck Lactic Ac Sepsis Rflx Y Plasma Lactic Acid Jason 2.0 (0.7-2.0) mmol/L Calcium (8.4-10.2) mg/dL Phosphorus (2.5-4.5) mg/dL Magnesium (1.6-2.3) mg/dL Total Bilirubin (0.2-1.3) mg/dL AST (14-36) U/L ALT (4-34) U/L Alkaline Phosphatase (38-126) U/L Total Protein (6.3-8.2) g/dL Albumin (3.5-5.0) g/dL TSH (0.465-4.680) mIU/L Free T4 (0.78-2.19) ng/dL Urine Color Urine Appearance (Clear) Urine pH (5.0-8.0) Ur Specific [place] (1.001-1.035) Urine Protein (Negative) Urine Glucose (UA) (Negative) Urine Ketones (Negative) Urine Blood (Negative) Urine Nitrite (Negative) Urine Bilirubin (Negative) Urine Urobilinogen (<2.0) mg/dL Ur Leukocyte Esterase (Negative) Urine RBC (0-5) /hpf Urine WBC (0-5) /hpf Urine Bacteria (None) /hpf Hyaline Casts (0-2) /lpf Urine Mucus (None) /hpf Valproic Acid ug/mL Coronavirus (PCR) (Not Detectd) Critical Care Time Critical Care Time: Yes Total Critical Care Time: 35 <Kellen Weathers P - Last Filed: 01/18/21 23:26> Critical Care Time: Critical Care Time 35 Critical care time was exclusive of separately billable procedures and treating other patients and teaching time. Critical care was necessary to treat or prevent imminent or life-threatening deterioration. Given the critical condition in which the patient arrived, the patient was immediately assessed by myself and the nurse, and cardiac monitoring initiated due to the potential for rapid decompensation of the patient's clinical condition. During the course of the patients stay, I spent a considerable amount of time at the bedside performing serial re-evaluations of the patient's hemodynamic and clinical status because of the recognized potential threat to life or limb in this condition. I then had a chance to review not only all of the available current laboratory and radiographic studies obtained today, but I also reviewed old records available to me at the time. Additionally, any ancillary information available including tax associate attorney records were reviewed. Sequential vital signs were obtained. (Kellen Weathers) Disposition <Maurice Benavides - Last Filed: 01/18/21 19:17> Is patient prescribed a controlled substance at d/c from ED?: No <Kellen Weathers - Last Filed: 01/18/21 23:26> Clinical Impression: Status epilepticus, Myxedema, UTI (urinary tract infection) Disposition: ADMITTED IP TO THIS HOSP Condition: Critical Referrals: Guillermina Ruff MD [Primary Care Provider] - 1-2 days
[2021-01-18] MEDS ORDERED: LORazepam 2 MG/ML INJ IV STA (19:35)
[2021-01-18 19:55] LABS: Anisocytosis Slight; Basophils % (A) 1 %; Eosinophils # (A) 0.1 k/uL (0-0.7); Eosinophils % (A) 1 %; HCT 36.2 % (34.0-46.0); HGB 12.1 gm/dL (11.4-16.0); Lymphocytes # (A) 1.9 k/uL (1.0-4.8); Lymphocytes % (A) 25 %; MCH 30.1 pg (25.0-35.0); MCHC 33.6 g/dL (31.0-37.0); MCV 89.6 fL (80.0-100.0); Mean Platelet Volume 7.6; Monocytes # (A) 0.3 k/uL (0-1.0); Monocytes % (A) 4 %; Neutrophils # (A) 5.4 k/uL (1.3-7.7); Neutrophils % (A) 69 %; Platelet Count 315 k/uL (150-450); RBC 4.04 m/uL (3.80-5.40); RDW 16.9 % (11.5-15.5); WBC 7.9 k/uL (3.8-10.6)
[2021-01-18 20:10] LABS: ALT 34 U/L (4-34); AST 54 U/L (14-36); African American GFR (CKD) >90 (>60 ml/min/1.73 sqM); Alkaline Phosphatase 92 U/L (38-126); Anion Gap 10 mmol/L; Blood Urea Nitrogen 37 mg/dL (7-17); Calcium 9.6 mg/dL (8.4-10.2); Carbon Dioxide 30 mmol/L (22-30); Chloride 91 mmol/L (98-107); Glucose 93 mg/dL (74-99); Non-African American GFR(CKD) >90 (>60 ml/min/1.73 sqM); Phosphorus 4.6 mg/dL (2.5-4.5); Potassium 4.3 mmol/L (3.5-5.1); Sodium 131 mmol/L (137-145); Total Bilirubin 0.1 mg/dL (0.2-1.3); Total Protein 6.6 g/dL (6.3-8.2)
[2021-01-18 20:17] LABS: Appearance,Urine Clear (Clear); Bacteria,Urine Occasional /hpf; Bilirubin,Urine Negative (Negative); Blood,Urine Negative (Negative); Color,Urine Light Yellow; Glucose,Urine (UA) Negative (Negative); Hyaline Casts,Urine 1 /lpf (0-2); Ketones,Urine Negative (Negative); Leukocyte Esterase,Urine Large (Negative); Mucus,Urine Rare /hpf; Nitrite,Urine Negative (Negative); PH, Urine 6.5 (5.0-8.0); Protein,Urine Negative (Negative); RBC,Urine 2 /hpf (0-5); Specific Gravity,Urine 1.008 (1.001-1.035); Urobilinogen,Urine <2.0 mg/dL (<2.0); WBC,Urine 22 /hpf (0-5)
--- NOTE | 2021-01-18 20:20 | CT ---
EXAM: CT Head Without Intravenous Contrast CLINICAL HISTORY: ITS.REASON CT Reason: Acute seizure TECHNIQUE: Axial computed tomography images of the head/brain without intravenous contrast. CTDI is 49.27 mGy and DLP is 1173.4 mGy-cm. This CT exam was performed using one or more of the following dose reduction techniques: automated exposure control, adjustment of the mA and/or kV according to patient size, and/or use of iterative reconstruction technique. COMPARISON: No relevant prior studies available. FINDINGS: Brain: Hypoattenuation in the periventricular cerebral white matter in keeping with chronic small vessel ischemic disease. Ventricular enlargement greater than sulcal enlargement. Green-white matter differentiation maintained. Senescent globus pallidus calcifications. Ventricles: Unremarkable. No hydrocephalus. Bones/joints: Unremarkable. No acute fracture. Soft tissues: Unremarkable. Sinuses: Unremarkable as visualized. No acute sinusitis. Mastoid air cells: Opacified right mastoid air cells. Left mastoid air cells are clear. Orbits: Status post bilateral lens replacements. IMPRESSION: 1. Ventricular enlargement greater than sulcal enlargement favored to represent central greater than cortical cerebral volume loss. Normal pressure hydrocephalus is considered less likely but is not excluded. 2. Involutional and chronic small vessel ischemic changes. 3. Right mastoid effusion.
--- NOTE | 2021-01-18 20:26 | XR ---
EXAMINATION TYPE: XR chest 2V DATE OF EXAM: 01/18/2021 COMPARISON: 06/09/2020 HISTORY: Fever. TECHNIQUE: 2 views FINDINGS: There is some coarsening of interstitial markings. There is no gross heart failure. Costoph renic angles are clear. There is degenerative spurring in the thoracic spine with thoracic kyphotic d eformity. There is anterior wedging of several mid thoracic vertebra. Heart is borderline enlarged. IMPRESSION: Pulmonary fibrotic changes. No pulmonary consolidation or heart failure. No adverse mittal e compared to old exam.
[2021-01-18] MEDS ORDERED: HYDROCORTISONE SUCCINATE 100 MG/2 ML VIAL IV STA (20:40)
[2021-01-18] MEDS ORDERED: PROPOFOL 10 MG/ML 20 ML VIAL IV ONE (20:45)
[2021-01-18] MEDS ORDERED: ETOMIDATE 2 MG/ML 10 ML VIAL IVP STA (20:58)
[2021-01-18] MEDS ORDERED: SUCCINYLCHOLINE CHLORIDE VIAL 200 MG/10 ML VIAL IV STA (21:09)
[2021-01-18] MEDS ORDERED: NALOXONE 0.4 MG/ML 1 ML VIAL IV PRN (21:40)
--- NOTE | 2021-01-18 22:03 | XR ---
EXAMINATION TYPE: XR chest 1V DATE OF EXAM: 01/18/2021 COMPARISON: Today HISTORY: Respiratory failure TECHNIQUE: Single view FINDINGS: Endotracheal tube is 11 mm from the ovidio. There is some pulmonary interstitial fibrosis. There is some patchy atelectasis and infiltrate left lower lobe increased compared to exam 2 hours ag o. There is no obvious heart failure. There is nasogastric tube in the stomach. IMPRESSION: Infiltrate and atelectasis left lower lobe increasing.
[2021-01-18] MEDS: SODIUM CHLORIDE 0.9% 1,000 ML IV SCH (22:22)
[2021-01-18] MEDS: LEVOTHYROXINE IVP 100 MCG/5 ML VIAL IV SCH (22:22)
[2021-01-18 22:44] LABS: T4, Free (Free Thyroxine) 2.34 ng/dL (0.78-2.19)
[2021-01-18 22:52] LABS: Glucose,Whole Blood 99 mg/dL (75-99)
[2021-01-19 00:57] LABS: ABG Base Excess 8.2 mmol/L; ABG HCO3 31 mmol/L (21-25); ABG PCO2 35 mmHg (35-45); ABG PH 7.55 (7.35-7.45); ABG PO2 296 mmHg (83-108); ABG TCO2 32 mmol/L (19-24)
[2021-01-19 01:00] LABS: Allen Test Performed? No
[2021-01-19 05:13] LABS: ABG HCO3 29 mmol/L (21-25); ABG Oxygen Saturation 99.8 % (94-97); ABG PCO2 34 mmHg (35-45); ABG PH 7.54 (7.35-7.45); ABG PO2 166 mmHg (83-108); ABG TCO2 30 mmol/L (19-24)
[2021-01-19 05:33] LABS: Allen Test Performed? No
--- NOTE | 2021-01-19 06:23 | XR ---
EXAMINATION TYPE: XR chest 1V portable DATE OF EXAM: 01/19/2021 CLINICAL HISTORY: Difficulty breathing progress study. TECHNIQUE: Single AP portable semiupright view of the chest is obtained. COMPARISON: Chest x-ray from one day earlier and older studies FINDINGS: Stable endotracheal and orogastric tubes. Chronic parenchymal changes with persistent left basilar opacity. Right lung remains clear. Current s tudy slightly more suboptimal due to overlying chin artifact. Cardiac silhouette size is stable and m ildly enlarged. Multilevel spurring in thoracic spine. IMPRESSION: Chronic changes with persistent left basilar acute infiltrate and/or atelectasis. No sign ificant change from one day earlier.
[2021-01-19 07:06] LABS: Glucose,Whole Blood 86 mg/dL (75-99)
[2021-01-19 07:29] LABS: African American GFR (CKD) >90 (>60 ml/min/1.73 sqM); Anion Gap 8 mmol/L; Blood Urea Nitrogen 32 mg/dL (7-17); Calcium 8.8 mg/dL (8.4-10.2); Carbon Dioxide 27 mmol/L (22-30); Chloride 99 mmol/L (98-107); Glucose 88 mg/dL (74-99); Non-African American GFR(CKD) >90 (>60 ml/min/1.73 sqM); Potassium 3.3 mmol/L (3.5-5.1); Sodium 134 mmol/L (137-145)
[2021-01-19] MEDS ORDERED: Potassium Replacement Protocol 1 EACH MISC MISCELLANE PRN ×2 (07:36→15:23)
[2021-01-19 07:46] LABS: Anisocytosis Slight; Basophils % (A) 0 %; Eosinophils % (A) 1 %; HCT 29.4 % (34.0-46.0); HGB 10.2 gm/dL (11.4-16.0); Lymphocytes # (A) 1.5 k/uL (1.0-4.8); Lymphocytes % (A) 19 %; MCH 30.8 pg (25.0-35.0); MCHC 34.6 g/dL (31.0-37.0); MCV 88.8 fL (80.0-100.0); Mean Platelet Volume 8.4; Monocytes # (A) 0.4 k/uL (0-1.0); Monocytes % (A) 5 %; Neutrophils % (A) 74 %; Platelet Count 255 k/uL (150-450); RBC 3.31 m/uL (3.80-5.40); RDW 16.7 % (11.5-15.5); WBC 8.1 k/uL (3.8-10.6)
[2021-01-19] MEDS: CHLORHEXIDINE GLUCONATE 15 ML CUP MUCOUS MEM SCH ×2 (08:23→22:55)
[2021-01-19] MEDS: PANTOPRAZOLE 40 MG/10 ML VIAL IV SCH (08:24)
[2021-01-19] MEDS: POTASSIUM CHLORIDE 10 MEQ in WATER FOR INJECTION 1 100ML.BAG IVPB SCH ×4 (08:24→11:28)
[2021-01-19 11:33] LABS: Glucose,Whole Blood 79 mg/dL (75-99)
--- NOTE | 2021-01-19 11:38 | P.CNNES ---
"History of Present Illness Consult date: 01/19/21 Requesting physician: Elsy De Guzman Reason for Consult: rule out seizure, altered mental status History of Present Illness: This is a 80-year-old woman with medical history of seizure, atrial fibrillation on Eliquis, dyslipidemia, hypertension, PEG tube who presented emergency department on 01/18/2021 because of seizure. History is obtained from medical record. It seems that the patient lives in her house and receives 24-hour care. She had the seizure lasting for minutes with post ictal state and the seizures was tonic-clonic movement that was documented by the ED team and that was predominantly in the hands. Patient is on Depakote for her seizure. Her most recent seizure prior to this one was the N October 2020. It is reported that the patient does not have any fevers, chills, cough. She does have thereby meant of the wound and that was on the day of presentation but otherwise no other events. Her home medication per EMR is|, prednisone 5 mg daily, valproic acid 500 mg 1 tablet twice a day, result, metoprolol, Synthroid, lactulose, Lasix, Lipitor 10 mg daily, aspirin 81 mg daily, Eliquis 2.5 mg 1 tablet twice a day. I was able to speak with Hannah (caregiver) and she stated she has history of seiz ure since 2018. She stated yesterday she was being pushed her wheel chair and getting ready to be placed in chair. She started having shaking of the hands, eye rolling back, and spitting, and non-responsive. The shaking was 4 minutes then had prolonged post-ictal stated. She had two seizure in October 2020. Her seizure are jerking of hands, eye rolling back and spitting back. She follows-up with Dr. Nemesio Anaya (neurologist) over at [place], [place]. She had EEG in the past was normal. She was last seen by her neurologist a month ago. She is on Depakote 500mg 1 bid and has not missed her medication. She is not on any other seizure medication. She is wheel chair bound and has increased tone in uppers. She is verbal at baseline. She is oriented X1-2 (to self and possible place). Per the ED note, she had recurrent seizure in the ED and was given Ativan 1mg and was noted to be hypoxic and hypotensive as well as was hypothermic on arrival. She had a urinary tract infection. She was receiving fluids but remained to be hypotensive and was not responding cut to verbal stimuli was n oted to have some fasciculation of her tongue which there was a concern for subclinical seizure as a result the patient was intubated and was sent to ICU. Per the ICU nurse the patient was on propofol IV drip overnight at 40mcg/kg/min but at 7am today was 25 mcg/kg/min then turned off at 9am. No further seizure- like activity per the nurse. Some of the workup in the hospital consisted of: Initial vital signs his blood pressure of 136/81, heart rate of 69, respiratory of 18, initial temperature of 95.7 Fahrenheit tympanic, pulse ox of 90 L at room air. The patient became hypotensive 77/56. Currently the patient's blood pressure has been predominately of systolic in the 70s and diastolic in 40's. Patient temperature was at a got as low as 90.8 and the most current temperature is 97.2 Fahrenheit Initial white blood cell is 7.9 and the repeat is 8.1 which is considered within normal limits. The hemoglobin and hematocrit on presentation is 12.1 and hematocrit is 36.2 (both normal). Platelets is 315 was considered within normal limits. Chemistry panel initial sodium is 131 which is low which is mildly to moderately low in the repeat is 134 and there is improvement. Initial plasma lactic acid vein is 3.4 is elevated that. AST 54 ALTs 3480 slightly elevated that. Her creatinine is 0.52 which is within normal limits. Calcium is 9.6 which is considered within normal limits. Phosphorus 4.6 which is elevated and it's just borderline above normal limits. The Xyrem is 2.0 was considered within normal limits. TSH is 25 which is elevated and the free T4 is 2.34 Urinalysis is the leukocyte esterase is a large, urine white blood cells 22, urine bacteria is occasional. Valproic acid level is 92.0 which is considered within normal limits. CT of the head is reported as ventricular enlargement greater than cell colic enlargement favored to represent central greater than cortical cerebral volume loss. Normal pressure hydrocephalus considered less likely but is not excluded. Involutional and chronic small vessel ischemic changes. Patient last CT of the head the prior to this current admission is on 0-19 2019 and a remote reported as no definite acute process. However finding which could correlate with a clinical diagnosis of normal pressure hydrocephalus. I personally reviewed that too CT of the head and I feel the patient has a component of normal pressure hydrocephalus but the patient at this seems has had this for at least since 2019 from our imaging not sure how far back it goes. Chest x-rays reported as pulmonary fibrotic changes at. No pulmonary considerat ion or heart failure. No adverse changes compared to old exam. EKG is reported as sinus bradycardia with first-degree AV block. Otherwise normal EKG. Review of Systems Review of system is limited because of the patient condition and apparent positive and negative as per HPI. Past Medical History Past Medical History: Atrial Fibrillation, Asthma, Blood Disorder, Heart Failure, Dementia, GERD/Reflux, Hyperlipidemia, Hypertension, Mitral Valve Prolapse (MVP), Pneumonia, Seizure Disorder, Skin Disorder, Thyroid Disorder Additional Past Medical History / Comment(s): History Parkinson's disease, dementia, mild developmental delay, schizoaffective disorder, seizure x1 2018, chronic anemia, recurrent UTIs, uses w/c with assist, hypothyroidism, moderate degree aortic stenosis w/preserved LV function, ejection fraction of 50-55%, moderate pulmonary hypertension. Wound lt buttock, homecare 3x per wk. 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 History of Any Multi-Drug Resistant Organisms: MRSA Date of last positivie culture/infection: 01/20/20 MDRO Source:: MRSA BUTTOCK Past Surgical History: Joint Replacement Additional Past Surgical History / Comment(s): RIGHT HIP; ORIF OF RIGHT ELBOW (09/11/2014) - later to remove pins. Peg tube. EGD. Past Anesthesia/Blood Transfusion Reactions: No Reported Reaction Additional Past Anesthesia/Blood Transfusion Reaction / Comment(s): PEG TUBE HISTORY Past Psychological History: Depression, Schizophrenia Additional Psychological History / Comment(s): MENTALLY CHALLENGED Smoking Status: Former smoker Past Alcohol Use History: None Reported Additional Past Alcohol Use History / Comment(s): smoked age [age] Past Drug Use History: None Reported - Past Family History Brother(s) Family Medical History: Seizure Disorder Additional Family Medical History / Comment(s): parkinsons Sister(s) Family Medical History: Cancer Medications and Allergies Home Medications Medication Instructions Recorded Confirmed Type Aspirin 81 mg PEG/G-TUBE DAILY@0809/09/14 01/18/21 History risperiDONE [RisperDAL] 1 mg PEG/G-TUBE BID@799,199909/09/14 01/18/21 History Atorvastatin [Lipitor] 10 mg PEG/G-TUBE DAILY@0806/16/18 01/18/21 History Furosemide [Lasix] 40 mg PEG/G-TUBE DAILY@79910/08/18 01/18/21 History Latanoprost [Xalatan 0.005%] 1 drop BOTH EYES HS@199910/08/18 01/18/21 History Valproic Acid Oral Soln [Depakene 500 mg PEG/G-TUBE BID@799,199910/08/18 01/18/21 History Syrup] Metoprolol Tartrate [Lopressor] 12.5 mg PEG/G-TUBE BID@799,199903/14/19 01/18/21 History Levothyroxine Sodium [Synthroid] 175 mcg PEG/G-TUBE DAILY@59910/23/19 01/18/21 History Fluticasone Nasal [place] [Flonase 2 spr EA NOSTRIL HS@199906/09/20 01/18/21 History Nasal [place]] Lactulose [Constulose] 10 gm PEG/G-TUBE DAILY@79906/09/20 01/18/21 History Montelukast Chew [Singulair] 5 mg PEG/G-TUBE HS@199906/09/20 01/18/21 History Apixaban [Eliquis] 2.5 mg PEG/G-TUBE BID@799,199901/18/21 01/18/21 History Arformoterol Tartrate [Brovana] 15 mcg INHALATION RT-BID@799,199901/18/21 01/18/21 History Budesonide [Pulmicort] 0.25 mg INHALATION RT-BID@799,199901/18/21 01/18/21 History Omeprazole [PriLOSEC] 40 mg PEG/G-TUBE DAILY@0801/18/21 01/18/21 History guaiFENesin 400 mg PEG/G-TUBE Q6H PRN 08/16/21 08/16/21 History predniSONE 5 mg PEG/G-TUBE DAILY@0800 01/18/21 01/18/21 History Allergies Allergy/AdvReac Type Severity Reaction Status Date / Time sulfamethoxazole Allergy Rash/Hives Verified 01/18/21 19:51 [From Bactrim] trimethoprim [From Bactrim] Allergy Rash/Hives Verified 01/18/21 19:51 Physical Examination - Vital Signs Vital Signs: Vital Signs Temp Pulse Pulse Resp BP Pulse Ox 01/19/21 10:00 70 11 L 90/37 97 01/19/21 09:30 80 10 L 97 01/19/21 09:00 65 23 97 01/19/21 08:30 60 14 99 01/19/21 08:00 97.2 F L 70 14 98 01/19/21 07:30 65 14 98 01/19/21 07:00 63 14 72/45 98 01/19/21 06:50 63 14 72/45 98 01/19/21 06:40 64 14 72/45 99 01/19/21 06:30 66 14 72/45 98 01/19/21 06:20 61 14 72/45 98 01/19/21 06:10 62 14 72/45 98 01/19/21 06:00 62 14 01/19/21 05:50 63 14 73/46 99 01/19/21 05:40 61 14 73/46 99 01/19/21 05:30 97.5 F L 60 14 73/46 99 01/19/21 05:20 58 L 14 73/46 99 01/19/21 05:10 56 L 14 73/46 98 01/19/21 05:00 55 L 14 76/47 01/19/21 04:50 56 L 14 76/47 99 01/19/21 04:40 51 L 14 76/47 98 01/19/21 04:30 51 L 14 76/47 98 01/19/21 04:20 53 L 14 76/47 98 01/19/21 04:10 52 L 14 76/47 98 01/19/21 04:00 97.2 F L 55 L 57 L 14 76/49 98 01/19/21 03:50 58 L 14 76/49 99 01/19/21 03:40 60 22 76/49 99 01/19/21 03:30 55 L 14 76/49 98 01/19/21 03:20 57 L 14 76/49 98 01/19/21 03:10 56 L 14 76/49 98 01/19/21 03:00 56 L 14 70/48 98 01/19/21 02:50 55 L 14 70/48 98 01/19/21 02:40 53 L 20 70/48 98 01/19/21 02:30 53 L 14 78/42 01/19/21 02:20 53 L 14 78/42 98 01/19/21 02:10 53 L 14 78/42 98 01/19/21 02:00 96.3 F L 53 L 14 96/56 98 01/19/21 01:50 53 L 14 96/56 98 01/19/21 01:40 53 L 14 96/56 98 01/19/21 01:30 52 L 14 96/56 98 01/19/21 01:20 52 L 14 96/56 98 01/19/21 01:10 51 L 14 96/56 98 01/19/21 01:00 48 L 14 96/58 99 01/19/21 00:50 49 L 14 96/58 99 01/19/21 00:40 49 L 14 96/58 99 01/19/21 00:30 48 L 14 96/58 99 01/19/21 00:20 47 L 14 96/58 99 01/19/21 00:10 45 L 14 96/58 99 01/19/21 00:00 44 L 57 L 14 95/66 98 01/18/21 23:50 43 L 14 95/66 99 01/18/21 23:40 42 L 14 95/66 99 01/18/21 23:30 43 L 14 83/68 99 01/18/21 23:20 41 L 14 83/68 100 01/18/21 23:10 43 L 8 L 83/68 100 01/18/21 23:00 90.8 F L 44 L 14 95/60 99 01/18/21 22:50 97.8 F 46 L 16 95/60 99 01/18/21 22:48 99 01/18/21 22:24 50 L 101/51 01/18/21 22:21 90 F L 14 01/18/21 22:06 54 L 114/60 01/18/21 21:43 57 L 14 117/54 100 01/18/21 21:20 68 14 125/61 100 01/18/21 21:00 67 12 123/54 98 01/18/21 20:36 58 L 12 77/56 99 01/18/21 19:48 62 14 110/49 96 01/18/21 18:52 93 L 01/18/21 18:39 95.7 F L 69 18 136/81 90 L Intake and Output 01/18/21 01/19/21 01/19/21 22:59 06:59 14:59 Intake Total 2.143 674.299 733.991 Output Total 160 595 155 Balance -157.857 79.299 578.991 Intake: IV 234 Pressure Bag 9 Sodium Chloride 0.9% 1, 225 000 ml @ 75 mls/hr IV . [id number] DEANNA Rx#:[id number] Intake, IV Titration 2.143 674.299 499.991 Amount Potassium Chloride 10 meq 300 In Water For Injection 1 100ml.bag @ 100 mls/hr IVPB Q1H DEANNA Rx#: [id number] Sodium Chloride 0.9% 1, 600 75 000 ml @ 75 mls/hr IV . [id number] DEANNA Rx#:[id number] propofoL 1,000 mg In 2.143 74.299 124.991 Empty Bag 1 bag @ Titrate IV .Q0M DEANNA Rx#: [id number] Output: Urine 160 595 155 Uretheral (Brunson) 160 160 Other: Weight 79.379 kg 65 kg ABP, PAP, CO, CI - Last 8 Hours Arterial Blood Pressure 103/43 Arterial Blood Pressure 121/55 Arterial Blood Pressure 113/51 Arterial Blood Pressure 94/40 Arterial Blood Pressure 115/47 Arterial Blood Pressure 96/40 Arterial Blood Pressure 91/39 Arterial Blood Pressure 89/38 Arterial Blood Pressure 91/39 Arterial Blood Pressure 95/40 Arterial Blood Pressure 86/36 Arterial Blood Pressure 89/37 Arterial Blood Pressure 96/40 Arterial Blood Pressure 94/39 Arterial Blood Pressure 94/39 Arterial Blood Pressure 94/39 Arterial Blood Pressure 94/38 Arterial Blood Pressure 102/44 Arterial Blood Pressure 105/44 Arterial Blood Pressure 98/42 Arterial Blood Pressure 98/42 Arterial Blood Pressure 102/44 Arterial Blood Pressure 102/44 Arterial Blood Pressure 275/206 Arterial Blood Pressure 116/48 Arterial Blood Pressure 126/50 Arterial Blood Pressure 103/42 Arterial Blood Pressure 106/43 Arterial Blood Pressure 103/42 Arterial Blood Pressure 102/42 Arterial Blood Pressure 104/42 Arterial Blood Pressure 103/41 Arterial Blood Pressure 100/42 GENERAL: The patient is lying in bed and is not in acute distress. CHEST: The heart rate is regular rate rhythm. No murmurs to auscultation. No carotid bruit bilaterally. LUNG: Clear to auscultation bilaterally no wheezing noted throughout. Not labored breathing. She is intubated on ventilator. ABDOMEN/GI: Bowel sounds present in all 4 quadrants. No tenderness to palpation throughout. NEUROLOGICAL: Limited since intubated on ventilator and sedation (held for 2 hours was at Propofol 25mcg/kg/min) Higher mental function: Drowsy but briefly opened her eyes. Followed few simple commands wiggling her toes. Otherwise rest is limited. Cranial nerves: The pupils are round, equal and reactive to light (pupils are 2mm bilaterally). Primary gaze is midline. No facial weakness. Otherwise rest is limited because of her condition. Motor: Is wheel chair bound. The strength is limited because of her condition. She is able to briefly squeeze and move the right hand antigravity. She is able to wiggle her toes bilaterally on command. Otherwise she has increase tone in upper and slight lower (per ekg manager is baseline). Appear to have atrophy and slight decrease tone and bulk in bilateral wrist/hands. Cerebellum: Unable to assess. Sensation: Unable to assess. Reflexes (right/left): Biceps are 3+ bilaterally, ticeps are 1-2+ bilaterally. Otherwsie 1+ throughout. Plantars are mute bilaterally. Results Cerrato virus PCR was not detected. - Laboratory Findings CBC and BMP: 01/19/21 07:15 01/19/21 04:15 Abnormal Lab Findings: Abnormal Labs 01/18/21 01/18/21 01/18/21 19:38 19:38 19:38 RBC Hgb Hct RDW 16.9 H ABG pH ABG pCO2 ABG pO2 ABG HCO3 ABG Total CO2 ABG O2 Saturation Sodium 131 L Potassium Chloride 91 L BUN 37 H Creatinine Plasma Lactic Acid Jason Phosphorus 4.6 H Total Bilirubin 0.1 L AST 54 H TSH Free T4 Ur Leukocyte Esterase Large H Urine WBC 22 H Urine Bacteria Occasional H Urine Mucus Rare H 01/18/21 01/18/21 01/19/21 19:38 19:38 00:51 RBC Hgb Hct RDW ABG pH 7.55 H ABG pCO2 ABG pO2 296 H ABG HCO3 31 H ABG Total CO2 32 H ABG O2 Saturation 100.0 H Sodium Potassium Chloride BUN Creatinine Plasma Lactic Acid Jason 3.4 H* Phosphorus Total Bilirubin AST TSH 25.100 H Free T4 2.34 H Ur Leukocyte Esterase Urine WBC Urine Bacteria Urine Mucus 01/19/21 01/19/21 01/19/21 04:15 05:07 07:15 RBC 3.31 L Hgb 10.2 L Hct 29.4 L RDW 16.7 H ABG pH 7.54 H ABG pCO2 34 L ABG pO2 166 H ABG HCO3 29 H ABG Total CO2 30 H ABG O2 Saturation 99.8 H Sodium 134 L Potassium 3.3 L Chloride BUN 32 H Creatinine 0.39 L Plasma Lactic Acid Jason Phosphorus Total Bilirubin AST TSH Free T4 Ur Leukocyte Esterase Urine WBC Urine Bacteria Urine Mucus Assessment and Plan Assessment: Clinical Status epilepticus. Underlying infection can provoke seizure (has UTI) Altered mental status due to above and medication effect (Propofol and received Ativan). Hypothermia on presentation (unsure exact cause but possibly can be due to UTI leading to ?sepsis) History of hypertension but the since this hospital admission the patient has been hypotensive Hypotensive History of epilepsy(since 2018) Radiographically appears Normal Pressure hydrocephalus (since at least 2019 from our imaging.) Wheel chair bound Mild hyponatremia (131--->134 History of atrial fibrillation on Eliquis Dyslipidemia Dysphagia status post PEG tube Plan: * An EEG is ordered the by the ICU team and is pending. * Patient and is on the her home dose of Depakote 50 mg every 12 hours via PEG tube (antiepiletic drug). I added Keppra 500mg once every 12 hours via PEG tube (did not increase Depakote since her Depakote level are on the high normal side and to avoid toxic) * We'll defer the rest of the medical management to the ICU in the primary team. * Upon discharge the patient needs to follow-up with her neurologist (Nemesio Anaya) as an outpatient within 1-2 weeks. * Regarding this possible radiographic normal pressure hydrocephalus will defer management as outpatient with her neurologist. This was relayed to her caregiver. The plan is discussed with the ICU nurse. I updated the patient's caregiver (Hannah) via phone. Thank you for the consultation. Marcus Childers M.D. Neuro-hospital Time with Patient: Greater than 30"
[2021-01-19] MEDS: levETIRAcetam 500 MG TAB PEG/G-TUBE SCH ×2 (11:56→22:55)
[2021-01-19] MEDS: SODIUM CHLORIDE 0.9% 1,000 ML IV SCH (11:57)
--- NOTE | 2021-01-19 11:58 | P.CONS ---
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 Past medical history significant for atrophic fibrillation, asthma, heart failure, dementia, GERD, hyperlipidemia, hypertension, mitral valve prolapse, seizure disorder, hypothyroidism. Patient previously had MRSA to the buttocks in 2019. Patient was seen on Monday by Dr. Samuels who performed a incisional debridement to the site removing fat subcutaneous tissue and slough. The postprocedure measurements were 2.2 x 2.4 x 0.4 cm. Original cause of wound was Pressure Injury. The wound is currently classified as a Category/Stage IV wound with etiology of Pressure Ulcer and is located on the Left Gluteus. The wound measures 1.8cm length x 2.3cm width x 0.4cm depth; 3.252cm^2 area and 1.301cm^3 volume. There is muscle, Fat Layer (Subcutaneous Tissue) Exposed, and fascia exposed. There is no tunneling or undermining noted. There is a medium amount of serous drainage noted. The wound margin is distinct with the outline attached to the wound base. There is large (67-100%) pink granulation within the wound bed. There is a small (1-33%) amount of necrotic tissue within the wound bed including Adherent Slough. The periwound skin appearance exhibited: Scarring. The periwound skin appearance did not exhibit: Dry/Scaly, Maceration, Atrophie Wendie, Cyanosis, Ecchymosis, Hemosiderin Staining, Mottled, Pallor, Rubor, Erythema. Periwound temperature was noted as No Abnormality. The periwound has tenderness on palpation. Review of systems: Unable to obtain due to mental status Physical exam: General Appearance: Alert, cooperative, no distress, appears stated age. Skin: See HPI all other Skin color, texture, tugor normal, no rashes or lesions. Neurologic: Alert oriented x3 Assessment: 1. Pressure ulcer of left gluteus stage IV Plan: 1. Apply collagen silver, saline moistened gauze, or foam, change Monday. Patient has a return visit to the wound care center on the at 1:00. Utilize a Roho cushion for sitting and a low air loss mattress. Patient is changing her home care to [facility] for home care. Thank you for the consultation any questions please contact the wound care center. DNP note has been reviewed and discussed with Dr. Perez and the impression and plan of care has been directed as dictated. Past Medical History Past Medical History: Atrial Fibrillation, Asthma, Blood Disorder, Heart Failure, Dementia, GERD/Reflux, Hyperlipidemia, Hypertension, Mitral Valve Prolapse (MVP), Pneumonia, Seizure Disorder, Skin Disorder, Thyroid Disorder Additional Past Medical History / Comment(s): History Parkinson's disease, dementia, mild developmental delay, schizoaffective disorder, seizure x1 2018, chronic anemia, recurrent UTIs, uses w/c with assist, hypothyroidism, moderate degree aortic stenosis w/preserved LV function, ejection fraction of 50-55%, moderate pulmonary hypertension. Wound lt buttock, homecare 3x per wk. 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 History of Any Multi-Drug Resistant Organisms: MRSA Year Discovered:: 01/20/20 MDRO Source:: MRSA BUTTOCK Past Surgical History: Joint Replacement Additional Past Surgical History / Comment(s): RIGHT HIP; ORIF OF RIGHT ELBOW (09/11/2014) - later to remove pins. Peg tube. EGD. Past Anesthesia/Blood Transfusion Reactions: No Reported Reaction Additional Past Anesthesia/Blood Transfusion Reaction / Comm: PEG TUBE HISTORY Past Psychological History: Depression, Schizophrenia Additional Psychological History / Comment(s): MENTALLY CHALLENGED Smoking Status: Former smoker Past Alcohol Use History: None Reported Additional Past Alcohol Use History / Comment(s): smoked age [age] Past Drug Use History: None Reported - Past Family History Brother(s) Family Medical History: Seizure Disorder Additional Family Medical History / Comment(s): parkinsons Sister(s) Family Medical History: Cancer Medications and Allergies Home Medications Medication Instructions Recorded Confirmed Type Aspirin 81 mg PEG/G-TUBE DAILY@0800 09/09/14 01/18/21 History risperiDONE [RisperDAL] 1 mg PEG/G-TUBE BID@0800,199909/09/14 01/18/21 History Atorvastatin [Lipitor] 10 mg PEG/G-TUBE DAILY@0800 06/16/1821 History Furosemide [Lasix] 40 mg PEG/G-TUBE DAILY@79910/08/18 01/18/21 History Latanoprost [Xalatan 0.005%] 1 drop BOTH EYES HS@199910/08/18 01/18/21 History Valproic Acid Oral Soln [Depakene 500 mg PEG/G-TUBE BID@799,199910/08/18 01/18/21 History Syrup] Metoprolol Tartrate [Lopressor] 12.5 mg PEG/G-TUBE BID@799,199903/14/19 01/18/21 History Levothyroxine Sodium [Synthroid] 175 mcg PEG/G-TUBE DAILY@59910/23/19 01/18/21 History Fluticasone Nasal [place] [Flonase 2 spr EA NOSTRIL HS@199906/09/20 01/18/21 History Nasal [place]] Lactulose [Constulose] 10 gm PEG/G-TUBE DAILY@79906/09/20 01/18/21 History Montelukast Chew [Singulair] 5 mg PEG/G-TUBE HS@199906/09/20 01/18/21 History Apixaban [Eliquis] 2.5 mg PEG/G-TUBE BID@01/18/21 01/18/21 History Arformoterol Tartrate [Brovana] 15 mcg INHALATION RT-BID@01/18/21 01/18/21 History Budesonide [Pulmicort] 0.25 mg INHALATION RT-BID@01/18/21 01/18/21 History Omeprazole [PriLOSEC] 40 mg PEG/G-TUBE DAILY@79901/18/21 01/18/21 History guaiFENesin 400 mg PEG/G-TUBE Q6H PRN 01/18/21 01/18/21 History predniSONE 5 mg PEG/G-TUBE DAILY@79901/18/21 01/18/21 History Allergies Allergy/AdvReac Type Severity Reaction Status Date / Time sulfamethoxazole Allergy Rash/Hives Verified 01/18/21 19:51 [From Bactrim] trimethoprim [From Bactrim] Allergy Rash/Hives Verified 01/18/21 19:51 Physical Exam Vitals: Vital Signs Temp Pulse Pulse Resp BP Pulse Ox 01/19/21 10:00 70 11 L 90/37 97 01/19/21 09:30 80 10 L 97 01/19/21 09:00 65 23 97 01/19/21 08:30 60 14 99 01/19/21 08:00 97.2 F L 70 14 98 01/19/21 07:30 65 14 98 01/19/21 07:00 63 14 72/45 98 01/19/21 06:50 63 14 72/45 98 01/19/21 06:40 64 14 72/45 99 01/19/21 06:30 66 14 72/45 98 01/19/21 06:20 61 14 72/45 98 01/19/21 06:10 62 14 72/45 98 01/19/21 06:00 62 14 01/19/21 05:50 63 14 73/46 99 01/19/21 05:40 61 14 73/46 99 01/19/21 05:30 97.5 F L 60 14 73/46 99 01/19/21 05:20 58 L 14 73/46 99 01/19/21 05:10 56 L 14 73/46 98 01/19/21 05:00 55 L 14 76/47 01/19/21 04:50 56 L 14 76/47 99 01/19/21 04:40 51 L 14 76/47 98 01/19/21 04:30 51 L 14 76/47 98 01/19/21 04:20 53 L 14 76/47 98 01/19/21 04:10 52 L 14 76/47 98 01/19/21 04:00 97.2 F L 55 L 57 L 14 76/49 98 01/19/21 03:50 58 L 14 76/49 99 01/19/21 03:40 60 22 76/49 99 01/19/21 03:30 55 L 14 76/49 98 01/19/21 03:20 57 L 14 76/49 98 01/19/21 03:10 56 L 14 76/49 98 01/19/21 03:00 56 L 14 70/48 98 01/19/21 02:50 55 L 14 70/48 98 01/19/21 02:40 53 L 20 70/48 98 01/19/21 02:30 53 L 14 78/42 01/19/21 02:20 53 L 14 78/42 98 01/19/21 02:10 53 L 14 78/42 98 01/19/21 02:00 96.3 F L 53 L 14 96/56 98 01/19/21 01:50 53 L 14 96/56 98 01/19/21 01:40 53 L 14 96/56 98 01/19/21 01:30 52 L 14 96/56 98 01/19/21 01:20 52 L 14 96/56 98 01/19/21 01:10 51 L 14 96/56 98 01/19/21 01:00 48 L 14 96/58 99 01/19/21 00:50 49 L 14 96/58 99 01/19/21 00:40 49 L 14 96/58 99 01/19/21 00:30 48 L 14 96/58 99 01/19/21 00:20 47 L 14 96/58 99 01/19/21 00:10 45 L 14 96/58 99 01/19/21 00:00 44 L 57 L 14 95/66 98 01/18/21 23:50 43 L 14 95/66 99 01/18/21 23:40 42 L 14 95/66 99 01/18/21 23:30 43 L 14 83/68 99 01/18/21 23:20 41 L 14 83/68 100 01/18/21 23:10 43 L 8 L 83/68 100 01/18/21 23:00 90.8 F L 44 L 14 95/60 99 01/18/21 22:50 97.8 F 46 L 16 95/60 99 01/18/21 22:48 99 01/18/21 22:24 50 L 101/51 01/18/21 22:21 90 F L 14 01/18/21 22:06 54 L 114/60 01/18/21 21:43 57 L 14 117/54 100 01/18/21 21:20 68 14 125/61 100 01/18/21 21:00 67 12 123/54 98 01/18/21 20:36 58 L 12 77/56 99 01/18/21 19:48 62 14 110/49 96 01/18/21 18:52 93 L 01/18/21 18:39 95.7 F L 69 18 136/81 90 L Intake and Output 01/18/21 01/19/21 01/19/21 22:59 06:59 14:59 Intake Total 2.143 674.299 733.991 Output Total 160 595 155 Balance -157.857 79.299 578.991 Intake: IV 234 Pressure Bag 9 Sodium Chloride 0.9% 1, 225 000 ml @ 75 mls/hr IV . [id number] DEANNA Rx#:[id number] Intake, IV Titration 2.143 674.299 499.991 Amount Potassium Chloride 10 meq 300 In Water For Injection 1 100ml.bag @ 100 mls/hr IVPB Q1H DEANNA Rx#: [id number] Sodium Chloride 0.9% 1, 600 75 000 ml @ 75 mls/hr IV . [id number] DEANNA Rx#:[id number] propofoL 1,000 mg In 2.143 74.299 124.991 Empty Bag 1 bag @ Titrate IV .Q0M DEANNA Rx#: [id number] Output: Urine 160 595 155 Uretheral (Brunson) 160 160 Other: Weight 79.379 kg 65 kg 65 kg ABP, PAP, CO, CI - Last 8 Hours Arterial Blood Pressure 103/43 Arterial Blood Pressure 121/55 Arterial Blood Pressure 113/51 Arterial Blood Pressure 94/40 Arterial Blood Pressure 115/47 Arterial Blood Pressure 96/40 Arterial Blood Pressure 91/39 Arterial Blood Pressure 89/38 Arterial Blood Pressure 91/39 Arterial Blood Pressure 95/40 Arterial Blood Pressure 86/36 Arterial Blood Pressure 89/37 Arterial Blood Pressure 96/40 Arterial Blood Pressure 94/39 Arterial Blood Pressure 94/39 Arterial Blood Pressure 94/39 Arterial Blood Pressure 94/38 Arterial Blood Pressure 102/44 Arterial Blood Pressure 105/44 Arterial Blood Pressure 98/42 Arterial Blood Pressure 98/42 Arterial Blood Pressure 102/44 Arterial Blood Pressure 102/44 Arterial Blood Pressure 275/206 Results CBC & Chem 7: 01/19/21 07:15 01/19/21 04:15 Labs: Abnormal Lab Results - Last 24 Hours (Table) 01/18/21 01/18/21 01/18/21 Range/Units 19:38 19:38 19:38 RBC (3.80-5.40) m/uL Hgb (11.4-16.0) gm/dL Hct (34.0-46.0) % RDW 16.9 H (11.5-15.5) % ABG pH (7.35-7.45) ABG pCO2 (35-45) mmHg ABG pO2 (83-108) mmHg ABG HCO3 (21-25) mmol/L ABG Total CO2 (19-24) mmol/L ABG O2 Saturation (94-97) % Sodium 131 L (137-145) mmol/L Potassium (3.5-5.1) mmol/L Chloride 91 L (98-107) mmol/L BUN 37 H (7-17) mg/dL Creatinine (0.52-1.04) mg/dL Plasma Lactic Acid Jason (0.7-2.0) mmol/L Phosphorus 4.6 H (2.5-4.5) mg/dL Total Bilirubin 0.1 L (0.2-1.3) mg/dL AST 54 H (14-36) U/L TSH (0.465-4.680) mIU/L Free T4 (0.78-2.19) ng/dL Ur Leukocyte Esterase Large H (Negative) Urine WBC 22 H (0-5) /hpf Urine Bacteria Occasional H (None) /hpf Urine Mucus Rare H (None) /hpf 01/18/21 01/18/21 01/19/21 Range/Units 19:38 19:38 00:51 RBC (3.80-5.40) m/uL Hgb (11.4-16.0) gm/dL Hct (34.0-46.0) % RDW (11.5-15.5) % ABG pH 7.55 H (7.35-7.45) ABG pCO2 (35-45) mmHg ABG pO2 296 H (83-108) mmHg ABG HCO3 31 H (21-25) mmol/L ABG Total CO2 32 H (19-24) mmol/L ABG O2 Saturation 100.0 H (94-97) % Sodium (137-145) mmol/L Potassium (3.5-5.1) mmol/L Chloride (98-107) mmol/L BUN (7-17) mg/dL Creatinine (0.52-1.04) mg/dL Plasma Lactic Acid Jason 3.4 H* (0.7-2.0) mmol/L Phosphorus (2.5-4.5) mg/dL Total Bilirubin (0.2-1.3) mg/dL AST (14-36) U/L TSH 25.100 H (0.465-4.680) mIU/L Free T4 2.34 H (0.78-2.19) ng/dL Ur Leukocyte Esterase (Negative) Urine WBC (0-5) /hpf Urine Bacteria (None) /hpf Urine Mucus (None) /hpf 01/19/21 01/19/21 01/19/21 Range/Units 04:15 05:07 07:15 RBC 3.31 L (3.80-5.40) m/uL Hgb 10.2 L (11.4-16.0) gm/dL Hct 29.4 L (34.0-46.0) % RDW 16.7 H (11.5-15.5) % ABG pH 7.54 H (7.35-7.45) ABG pCO2 34 L (35-45) mmHg ABG pO2 166 H (83-108) mmHg ABG HCO3 29 H (21-25) mmol/L ABG Total CO2 30 H (19-24) mmol/L ABG O2 Saturation 99.8 H (94-97) % Sodium 134 L (137-145) mmol/L Potassium 3.3 L (3.5-5.1) mmol/L Chloride (98-107) mmol/L BUN 32 H (7-17) mg/dL Creatinine 0.39 L (0.52-1.04) mg/dL Plasma Lactic Acid Jason (0.7-2.0) mmol/L Phosphorus (2.5-4.5) mg/dL Total Bilirubin (0.2-1.3) mg/dL AST (14-36) U/L TSH (0.465-4.680) mIU/L Free T4 (0.78-2.19) ng/dL Ur Leukocyte Esterase (Negative) Urine WBC (0-5) /hpf Urine Bacteria (None) /hpf Urine Mucus (None) /hpf Microbiology - Last 24 Hours (Table) 01/18/21 21:25 Gram Stain - Preliminary Sputum Sputum Culture - Preliminary 01/18/21 19:38 Urine Culture - Preliminary Urine,Voided Assessment and Plan (1) Pressure ulcer of left buttock, stage 4 Current Visit: Yes Status: Acute Code(s): L89.324 - PRESSURE ULCER OF LEFT BUTTOCK, STAGE 4 SNOMED Code(s): 84781010501745451 (2) Severe protein-calorie malnutrition Current Visit: No Status: Acute Code(s): E43 - UNSPECIFIED SEVERE PROTEIN- CALORIE MALNUTRITION SNOMED Code(s): 077060540
--- NOTE | 2021-01-19 12:11 | P.CNPUL ---
History of Present Illness Consult date: 01/19/21 Chief complaint: Altered mentation, seizures History of present illness: This is a 80-year-old female patient, known to me from previous admissions, known to have multiple medical problems and comorbidities most significant a history of dementia along with schizophrenia with Parkinson's disease was been essentially bedridden and she has a 24-hour caregiver at home. Recently, the patient has developed a stage IV sacral decub ulcer and the patient was in the hospital yesterday for a debridement procedure that was done and the patient was discharged home. Discharge, the patient was noted to have seizure activity at home. Note that she has history of seizures and she has been maintained on Depakote on outpatient basis. She was given all of her medications with a caregiver without any interruption. Her seizure lasted for few minutes and the patient was postictal. Apparently she was having tonic-clonic activity as documented by the emergency department team. The patient in the emergency was evaluated. Mentation was altered. She was having twitching in her tongue and mouth area and it was suspected that she was having ongoing seizure activity. For that reason, the patient was started on propofol and the patient was intubated and placed on a mechanical ventilator for airway protection. Note that the patient apparently was having seizures in the past. She had to seizure activities back in October 2020. She sees a neurologist out of [facility]. She was seen by her neurologist recently and she has not skipped any of her Depakote doses. The patient was given a total of 1 mg Ativan in the emergency department. Her valproic acid level was at 92. The patient was seen by neurology today and the patient was given 1 g every 12 hours and the neurologist asked to continue the Depakote. CAT scan of the brain was done in the emergency department showed no acute abnormalities. No reported fever. No reported neck stiffness. No reported aspiration. The patient had a white cell count of 8.4 with a hemoglobin of 10.2. This morning, it out with this patient in intensive care unit. She was on a mechanical ventilator. She was an assist-control at the rate of 14 with tidal volume of 375 and FiO2 of 50% with a PEEP of 5. Blood gas showed a pH of 7.54 with a pCO2 of 34 and pO2 166. Chest patient was somewhat limited as the patient has significant Scoliosis of the thoracic spine. Nevertheless, there was no airspace disease or consolidation. ET tube was in a good location. The patient had no significant orotracheal secretions. The patient remains hemodynamically stable. She was given a total of 2 L of IV fluids in the emergency department and she did not require any pressors. Her cardiac rhythm was sinus all of the patient has history of atrial fibrillation and she is maintained on anticoagulation with Eliquis. She also has obstructive sleep apnea and this was severe with an AHI of 76 and she was placed on APAP on outpatient basis. There is a month her various other comorbidities. Past Medical History Past Medical History: Atrial Fibrillation, Asthma, Blood Disorder, Heart Failure, Dementia, GERD/Reflux, Hyperlipidemia, Hypertension, Mitral Valve Prolapse (MVP), Pneumonia, Seizure Disorder, Skin Disorder, Thyroid Disorder Additional Past Medical History / Comment(s): History Parkinson's disease, dementia, mild developmental delay, schizoaffective disorder, seizure x1 2018, chronic anemia, recurrent UTIs, uses w/c with assist, hypothyroidism, moderate degree aortic stenosis w/preserved LV function, ejection fraction of 50-55%, moderate pulmonary hypertension. Wound lt buttock, homecare 3x per wk. 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 History of Any Multi-Drug Resistant Organisms: MRSA Date of last positivie culture/infection: 01/20/20 MDRO Source:: MRSA BUTTOCK Past Surgical History: Joint Replacement Additional Past Surgical History / Comment(s): RIGHT HIP; ORIF OF RIGHT ELBOW (09/11/2014) - later to remove pins. Peg tube. EGD. Past Anesthesia/Blood Transfusion Reactions: No Reported Reaction Additional Past Anesthesia/Blood Transfusion Reaction / Comment(s): PEG TUBE HISTORY Past Psychological History: Depression, Schizophrenia Additional Psychological History / Comment(s): MENTALLY CHALLENGED Smoking Status: Former smoker Past Alcohol Use History: None Reported Additional Past Alcohol Use History / Comment(s): smoked age [age] Past Drug Use History: None Reported - Past Family History Brother(s) Family Medical History: Seizure Disorder Additional Family Medical History / Comment(s): parkinsons Sister(s) Family Medical History: Cancer Medications and Allergies Home Medications Medication Instructions Recorded Confirmed Type Aspirin 81 mg PEG/G-TUBE DAILY@0800 09/09/15 21 History risperiDONE [RisperDAL] 1 mg PEG/G-TUBE BID@799,199909/09/14 01/18/21 History Atorvastatin [Lipitor] 10 mg PEG/G-TUBE DAILY@79906/16/18 01/18/21 History Furosemide [Lasix] 40 mg PEG/G-TUBE DAILY@79910/08/18 01/18/21 History Latanoprost [Xalatan 0.005%] 1 drop BOTH EYES HS@199910/08/18 01/18/21 History Valproic Acid Oral Soln [Depakene 500 mg PEG/G-TUBE BID@799,199910/08/18 01/18/21 History Syrup] Metoprolol Tartrate [Lopressor] 12.5 mg PEG/G-TUBE BID@799,199903/14/19 01/18/21 History Levothyroxine Sodium [Synthroid] 175 mcg PEG/G-TUBE DAILY@59910/23/19 01/18/21 History Fluticasone Nasal [place] [Flonase 2 spr EA NOSTRIL HS@199906/09/20 01/18/21 History Nasal [place]] Lactulose [Constulose] 10 gm PEG/G-TUBE DAILY@79906/09/20 01/18/21 History Montelukast Chew [Singulair] 5 mg PEG/G-TUBE HS@199906/09/20 01/18/21 History Apixaban [Eliquis] 2.5 mg PEG/G-TUBE BID@799,199901/18/21 01/18/21 History Arformoterol Tartrate [Brovana] 15 mcg INHALATION RT-BID@799,199901/18/21 01/18/21 History Budesonide [Pulmicort] 0.25 mg INHALATION RT-BID@799,199901/18/21 01/18/21 History Omeprazole [PriLOSEC] 40 mg PEG/G-TUBE DAILY@79901/18/21 01/18/21 History guaiFENesin 400 mg PEG/G-TUBE Q6H PRN 01/18/21 01/18/21 History predniSONE 5 mg PEG/G-TUBE DAILY@79901/18/21 01/18/21 History Allergies Allergy/AdvReac Type Severity Reaction Status Date / Time sulfamethoxazole Allergy Rash/Hives Verified 01/18/21 19:51 [From Bactrim] trimethoprim [From Bactrim] Allergy Rash/Hives Verified 01/18/21 19:51 Physical Exam Vitals: Vital Signs Temp Pulse Pulse Resp BP Pulse Ox 01/19/21 10:00 70 11 L 90/37 97 01/19/21 09:30 80 10 L 97 01/19/21 09:00 65 23 97 01/19/21 08:30 60 14 99 01/19/21 08:00 97.2 F L 70 14 98 01/19/21 07:30 65 14 98 01/19/21 07:00 63 14 72/45 98 01/19/21 06:50 63 14 72/45 98 01/19/21 06:40 64 14 72/45 99 01/19/21 06:30 66 14 72/45 98 01/19/21 06:20 61 14 72/45 98 01/19/21 06:10 62 14 72/45 98 01/19/21 06:00 62 14 01/19/21 05:50 63 14 73/46 99 01/19/21 05:40 61 14 73/46 99 01/19/21 05:30 97.5 F L 60 14 73/46 99 01/19/21 05:20 58 L 14 73/46 99 01/19/21 05:10 56 L 14 73/46 98 01/19/21 05:00 55 L 14 76/47 01/19/21 04:50 56 L 14 76/47 99 01/19/21 04:40 51 L 14 76/47 98 01/19/21 04:30 51 L 14 76/47 98 01/19/21 04:20 53 L 14 76/47 98 01/19/21 04:10 52 L 14 76/47 98 01/19/21 04:00 97.2 F L 55 L 57 L 14 76/49 98 01/19/21 03:50 58 L 14 76/49 99 01/19/21 03:40 60 22 76/49 99 01/19/21 03:30 55 L 14 76/49 98 01/19/21 03:20 57 L 14 76/49 98 01/19/21 03:10 56 L 14 76/49 98 01/19/21 03:00 56 L 14 70/48 98 01/19/21 02:50 55 L 14 70/48 98 01/19/21 02:40 53 L 20 70/48 98 01/19/21 02:30 53 L 14 78/42 01/19/21 02:20 53 L 14 78/42 98 01/19/21 02:10 53 L 14 78/42 98 01/19/21 02:00 96.3 F L 53 L 14 96/56 98 01/19/21 01:50 53 L 14 96/56 98 01/19/21 01:40 53 L 14 96/56 98 01/19/21 01:30 52 L 14 96/56 98 01/19/21 01:20 52 L 14 96/56 98 01/19/21 01:10 51 L 14 96/56 98 01/19/21 01:00 48 L 14 96/58 99 01/19/21 00:50 49 L 14 96/58 99 01/19/21 00:40 49 L 14 96/58 99 01/19/21 00:30 48 L 14 96/58 99 01/19/21 00:20 47 L 14 96/58 99 01/19/21 00:10 45 L 14 96/58 99 01/19/21 00:00 44 L 57 L 14 95/66 98 01/18/21 23:50 43 L 14 95/66 99 01/18/21 23:40 42 L 14 95/66 99 01/18/21 23:30 43 L 14 83/68 99 01/18/21 23:20 41 L 14 83/68 100 01/18/21 23:10 43 L 8 L 83/68 100 01/18/21 23:00 90.8 F L 44 L 14 95/60 99 01/18/21 22:50 97.8 F 46 L 16 95/60 99 01/18/21 22:48 99 01/18/21 22:24 50 L 101/51 01/18/21 22:21 90 F L 14 01/18/21 22:06 54 L 114/60 01/18/21 21:43 57 L 14 117/54 100 01/18/21 21:20 68 14 125/61 100 01/18/21 21:00 67 12 123/54 98 01/18/21 20:36 58 L 12 77/56 99 01/18/21 19:48 62 14 110/49 96 01/18/21 18:52 93 L 01/18/21 18:39 95.7 F L 69 18 136/81 90 L Intake and Output 01/18/21 01/19/21 01/19/21 22:59 06:59 14:59 Intake Total 2.143 674.299 733.991 Output Total 160 595 155 Balance -157.857 79.299 578.991 Intake: IV 234 Pressure Bag 9 Sodium Chloride 0.9% 1, 225 000 ml @ 75 mls/hr IV . [id number] DEANNA Rx#:[id number] Intake, IV Titration 2.143 674.299 499.991 Amount Potassium Chloride 10 meq 300 In Water For Injection 1 100ml.bag @ 100 mls/hr IVPB Q1H DEANNA Rx#: [id number] Sodium Chloride 0.9% 1, 600 75 000 ml @ 75 mls/hr IV . [id number] DEANNA Rx#:[id number] propofoL 1,000 mg In 2.143 74.299 124.991 Empty Bag 1 bag @ Titrate IV .Q0M DEANNA Rx#: [id number] Output: Urine 160 595 155 Uretheral (Brunson) 160 160 Other: Weight 79.379 kg 65 kg 65 kg ABP, PAP, CO, CI - Last 8 Hours Arterial Blood Pressure 103/43 Arterial Blood Pressure 121/55 Arterial Blood Pressure 113/51 Arterial Blood Pressure 94/40 Arterial Blood Pressure 115/47 Arterial Blood Pressure 96/40 Arterial Blood Pressure 91/39 Arterial Blood Pressure 89/38 Arterial Blood Pressure 91/39 Arterial Blood Pressure 95/40 Arterial Blood Pressure 86/36 Arterial Blood Pressure 89/37 Arterial Blood Pressure 96/40 Arterial Blood Pressure 94/39 Arterial Blood Pressure 94/39 Arterial Blood Pressure 94/39 Arterial Blood Pressure 94/38 Arterial Blood Pressure 102/44 Arterial Blood Pressure 105/44 Arterial Blood Pressure 98/42 Arterial Blood Pressure 98/42 Arterial Blood Pressure 102/44 Arterial Blood Pressure 102/44 Calm and comfortable, sickness a mechanical ventilator, was sedated on propofol Head exam was generally normal. There was no scleral icterus or corneal arcus. Mucous membranes were moist. Neck was supple and without jugular venous distension, thyromegaly, or carotid bruits. Carotids were easily palpable bilaterally. There was no adenopathy. Orogastric and aortic tube are both in place. Lungs are diminished and the patient is on obvious thoracic and thoracolumbar kyphoscoliosis with cervical kyphosis. Rest of the equal and symmetrical. No wheezes or rhonchi. Cardiac exam revealed the PMI to be normally situated and sized. The rhythm was regular and no extrasystoles were noted during several minutes of auscultation. The first and second heart sounds were normal and physiologic splitting of the s econd heart sound was noted. There were systolic ejection murmur consistent with aortic stenosis , rubs, clicks, or gallops. Abdominal exam revealed normal bowel sounds. The abdomen was soft, non-tender, and without masses, organomegaly, or appreciable enlargement of the abdominal aorta. The patient is a PEG tube in place and the PEG tube site is dry clean and intact and there is no direct tenderness or rebound tensile guarding. Bowel sounds are hypoactive at the present Examination of the extremities revealed easily palpable radial, femoral and pedal pulses. There was no cyanosis, clubbing or edema. Examination of the skin revealed no evidence of significant rashes, suspicious appearing nevi or other concerning lesions. 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 Neurologically the patient sedated for now. Please refer to the neurologist evaluation regarding a complete neurological evaluation. Results - Laboratory Findings CBC and BMP: 01/19/21 07:15 01/19/21 04:15 ABG ABG pH 7.54 (7.35-7.45) H 01/19/21 05:07 ABG pCO2 34 mmHg (35-45) L 01/19/21 05:07 ABG pO2 166 mmHg (83-108) H 01/19/21 05:07 ABG O2 Saturation 99.8 % (94-97) H 01/19/21 05:07 Abnormal lab findings: Abnormal Labs 01/18/21 01/18/21 01/18/21 19:38 19:38 19:38 RBC Hgb Hct RDW 16.9 H ABG pH ABG pCO2 ABG pO2 ABG HCO3 ABG Total CO2 ABG O2 Saturation Sodium 131 L Potassium Chloride 91 L BUN 37 H Creatinine Plasma Lactic Acid Jason Phosphorus 4.6 H Total Bilirubin 0.1 L AST 54 H TSH Free T4 Ur Leukocyte Esterase Large H Urine WBC 22 H Urine Bacteria Occasional H Urine Mucus Rare H 01/18/21 01/18/21 01/19/21 19:38 19:38 00:51 RBC Hgb Hct RDW ABG pH 7.55 H ABG pCO2 ABG pO2 296 H ABG HCO3 31 H ABG Total CO2 32 H ABG O2 Saturation 100.0 H Sodium Potassium Chloride BUN Creatinine Plasma Lactic Acid Jason 3.4 H* Phosphorus Total Bilirubin AST TSH 25.100 H Free T4 2.34 H Ur Leukocyte Esterase Urine WBC Urine Bacteria Urine Mucus 01/19/21 01/19/21 01/19/21 04:15 05:07 07:15 RBC 3.31 L Hgb 10.2 L Hct 29.4 L RDW 16.7 H ABG pH 7.54 H ABG pCO2 34 L ABG pO2 166 H ABG HCO3 29 H ABG Total CO2 30 H ABG O2 Saturation 99.8 H Sodium 134 L Potassium 3.3 L Chloride BUN 32 H Creatinine 0.39 L Plasma Lactic Acid Jason Phosphorus Total Bilirubin AST TSH Free T4 Ur Leukocyte Esterase Urine WBC Urine Bacteria Urine Mucus - Diagnostic Findings Chest x-ray: image reviewed Assessment and Plan Plan: 1 altered mentation secondary to breakthrough seizure and the patient with known history of epilepsy was maintained on Depakote on outpatient basis. Note that the CAT scan of the brain was negative and the Depakote level was adequate. There has been breakthrough seizure this patient with second altered mentation. There was concern of ongoing seizure activity and for that reason the patient was been intubated in the emergency department and placed on a mechanical ventilator and placed on propofol is currently running at 75 mg/kg per minute. 2 acute hypoxic respiratory failure. Blood gas shows a component of respiratory alkalosis, mechanical ventilator-induced. Chest x-rays essentially clear. The patient was intubated and placed on mechanical ventilator essentially for airway protection 3 dementia 4 Parkinson's disease 5 mild developmental delay 6 schizoaffective disorder 7 history of epilepsy 8 history of moderate degree of aortic stenosis and the patient has an obvious cardiac murmur on examination. Based on previous echocardiogram, ejection fraction was around 50-55% and the patient has moderate degree of pulmonary hypertension 9 stage IV left buttocks ulcers post-debridement without evidence of any acute infection. 10 esophageal stricture and the patient has a PEG tube in place for enteral fe eding and nutritional support 11 abnormal gait due to our concern is and then dementia and the patient is wheelchair-bound and the patient has a caregiver at all 24 7 12 history approximately atrial fibrillation current rhythm is sinus 13 hypertension 14 hyperlipidemia 15 previous history of pneumonia and respiratory failure requiring prolonged hospitalization mechanical ventilation 16 history of recurrent UTIs 17 hypothyroidism 18 obstructive sleep apnea with an AHI of 78 maintained on a Pap on outpatient basis Plan Continue with IV fluids and the patient is currently on 0.9 at 75 mL an hour Continue Depakote Keppra was added for seizure control EEG to follow Neurologic consultation Sedation holiday get the patient off the propofol and assess mental status and consider possible weaning and extubation today if the patient demonstrated adequate mentation and adequate ability to protect airway Resume and the coagulation with Eliquis Continue bronchodilators Continue thyroid hormone replacement and check levels We'll initiate enteral feeding for nutritional support via PEG tube We'll continue to follow make further recommendations based on progress. Condition is critical for now. Neurologically the patient has been requested.
--- NOTE | 2021-01-19 12:59 | EEG ---
ELECTROENCEPHALOGRAM REPORT DATE OF SERVICE: 01/19/2021. CLINICAL HISTORY: This is a 80-year-old woman with history of seizures, who presented because a seizure episode. This video EEG is obtained to evaluate for seizure epileptiform activity. RELEVANT MEDICATION: Depakote, Ativan 1 mg, and propofol IV drip (stopped about 2 hours ago). DESCRIPTION: The patient is intubated and on ventilator. Wakefulness is only obtained. During wakefulness, there is a posterior dominant rhythm of low to moderate voltage of 7-8 hertz activity. There is no sleep architecture seen. There is no focal slowing. Interictal and ictal is none. ACTIVATION PROCEDURE: Photic stimulation and hyperventilation are not performed. CLINICAL INTERPRETATION: This is an abnormal routine EEG. The background slowing is suggestive of mild encephalopathy. There are no focal slowing, epileptiform discharge or seizure on the EEG. Clinical correlation is recommended. EILEEN / HUNTER: [id number] / [id number]
[2021-01-19] MEDS ORDERED: SODIUM CHLORIDE 0.9% 1,000 ML IV ONE (13:03)
[2021-01-19] MEDS ORDERED: POTASSIUM BICARBONATE/CIT AC 20 MEQ TABLET.EFF NG-TUBE SCH ×2 (16:00)
[2021-01-19 17:38] LABS: Glucose,Whole Blood 77 mg/dL (75-99)
[2021-01-19] MEDS: BUDESONIDE 0.25 MG/2 ML NEBU INHALATION SCH (20:18)
[2021-01-19] MEDS: FORMOTEROL FUMARATE 20 MCG/2 ML NEBU INHALATION SCH (20:19)
[2021-01-19] MEDS: APIXABAN 2.5 MG TABLET PEG/G-TUBE SCH (22:55)
[2021-01-19] MEDS: LATANOPROST 0.005% OPHTH DROPS 2.5 ML BTL BOTH EYES SCH (22:56)
[2021-01-19] MEDS: MONTELUKAST 5 MG CHEWABLE PEG/G-TUBE SCH (22:56)
[2021-01-19] MEDS: VALPROIC ACID ORAL SOLN 250 MG/5 ML CUP PEG/G-TUBE SCH (22:56)
[2021-01-19] MEDS: risperiDONE 1 MG TAB PEG/G-TUBE SCH (22:57)
--- NOTE | 2021-01-19 23:41 | P.HPIM ---
History of Present Illness This is a pleasant 80 years old female with past medical history of dementia, atrial fibrillation, asthma, heart failure, GERD, hypertension, hyperlipidemia, mitral valve prolapse, seizure disorder, hypothyroidism, Parkinson disease, developmental delay which is mild, she is a affective disorder, chronic anemia, moderate aortic stenosis with preserved LV function at ejection fraction of 50- 55%, moderate pulmonary hypertension, left buttock wound, Patient was sent for possible seizure at home, patient was nonverbal upon arrival, she was hypothermic at 95.7, and 19.8, she was bradycardic at 43 to 50s, and hypotensive with blood pressure 83/68. Also patient was saturating 90% on room air however her oxygen saturation deteriorated and she needed to 15 L nonrebreather and eventually she got intubated in the emergency room On admission her CBC is unremarkable. Sodium is 131 on the low side, potassium normal, creatinine normal at 0.5. Liver enzymes are unremarkable, ProBNP is 351. TSH is elevated at 25.1 and free T4 is also elevated at 2.3. Urine analysis showing large leukocyte esterase and WBC elevated at 22. Valproic acid is 92 which is therapeutic. Coronavirus not detected. Chest x-ray: Left lower lobe infiltrate and atelectasis EKG showing sinus bradycardia at 47 with first-degree AV block, no significant S T-T changes. And QTC is 461. CT of the brain: No acute process. Ventricular enlargement with normal pressure hydrocephalus is considered less likely. Patient in the emergency room received ceftriaxone, several boluses of normal saline. Started on a propofol after intubation. Also with seizure control Review of Systems N/a, patient is intubated Past Medical History Past Medical History: Atrial Fibrillation, Asthma, Blood Disorder, Heart Failure, Dementia, GERD/Reflux, Hyperlipidemia, Hypertension, Mitral Valve Prolapse (MVP), Pneumonia, Seizure Disorder, Skin Disorder, Thyroid Disorder Additional Past Medical History / Comment(s): History Parkinson's disease, dementia, mild developmental delay, schizoaffective disorder, seizure x1 2018, chronic anemia, recurrent UTIs, uses w/c with assist, hypothyroidism, moderate degree aortic stenosis w/preserved LV function, ejection fraction of 50-55%, moderate pulmonary hypertension. Wound lt buttock, homecare 3x per wk. 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 History of Any Multi-Drug Resistant Organisms: MRSA Date of last positivie culture/infection: 01/20/20 MDRO Source:: MRSA BUTTOCK Past Surgical History: Joint Replacement Additional Past Surgical History / Comment(s): RIGHT HIP; ORIF OF RIGHT ELBOW (09/11/2014) - later to remove pins. Peg tube. EGD. Past Anesthesia/Blood Transfusion Reactions: No Reported Reaction Additional Past Anesthesia/Blood Transfusion Reaction / Comment(s): PEG TUBE HISTORY Past Psychological History: Depression, Schizophrenia Additional Psychological History / Comment(s): MENTALLY CHALLENGED Smoking Status: Former smoker Past Alcohol Use History: None Reported Additional Past Alcohol Use History / Comment(s): smoked age [age] Past Drug Use History: None Reported - Past Family History Brother(s) Family Medical History: Seizure Disorder Additional Family Medical History / Comment(s): parkinsons Sister(s) Family Medical History: Cancer Medications and Allergies Home Medications Medication Instructions Recorded Confirmed Type Aspirin 81 mg PEG/G-TUBE DAILY@79909/09/14 01/18/21 History risperiDONE [RisperDAL] 1 mg PEG/G-TUBE BID@799,199909/09/14 01/18/21 History Atorvastatin [Lipitor] 10 mg PEG/G-TUBE DAILY@79906/16/18 01/18/21 History Furosemide [Lasix] 40 mg PEG/G-TUBE DAILY@79910/08/18 01/18/21 History Latanoprost [Xalatan 0.005%] 1 drop BOTH EYES HS@199910/08/18 01/18/21 History Valproic Acid Oral Soln [Depakene 500 mg PEG/G-TUBE BID@799,199910/08/18 01/18/21 History Syrup] Metoprolol Tartrate [Lopressor] 12.5 mg PEG/G-TUBE BID@799,199903/14/19 01/18/21 History Levothyroxine Sodium [Synthroid] 175 mcg PEG/G-TUBE DAILY@59910/23/19 01/18/21 History Fluticasone Nasal Bivalve [Flonase 2 spr EA NOSTRIL HS@199906/09/20 01/18/21 History Nasal Bivalve] Lactulose [Constulose] 10 gm PEG/G-TUBE DAILY@0800 06/09/20 01/18/21 History Montelukast Chew [Singulair] 5 mg PEG/G-TUBE HS@199906/09/20 01/18/21 History Apixaban [Eliquis] 2.5 mg PEG/G-TUBE BID@799,199901/18/21 01/18/21 History Arformoterol Tartrate [Brovana] 15 mcg INHALATION RT-BID@799,199901/18/21 01/18/21 History Budesonide [Pulmicort] 0.25 mg INHALATION RT-BID@799,199901/18/21 01/18/21 History Omeprazole [PriLOSEC] 40 mg PEG/G-TUBE DAILY@79901/18/21 01/18/21 History guaiFENesin 400 mg PEG/G-TUBE Q6H PRN 01/18/21 01/18/21 History predniSONE 5 mg PEG/G-TUBE DAILY@79901/18/21 01/18/21 History Allergies Allergy/AdvReac Type Severity Reaction Status Date / Time sulfamethoxazole Allergy Rash/Hives Verified 01/18/21 19:51 [From Bactrim] trimethoprim [From Bactrim] Allergy Rash/Hives Verified 01/18/21 19:51 Physical Exam Vitals: Vital Signs Temp Pulse Pulse Resp BP Pulse Ox 01/19/21 06:50 63 14 72/45 98 01/19/21 06:40 64 14 72/45 99 01/19/21 06:30 66 14 72/45 98 01/19/21 06:20 61 14 72/45 98 01/19/21 06:10 62 14 72/45 98 01/19/21 06:00 62 14 01/19/21 05:50 63 14 73/46 99 01/19/21 05:40 61 14 73/46 99 01/19/21 05:30 97.5 F L 60 14 73/46 99 01/19/21 05:20 58 L 14 73/46 99 01/19/21 05:10 56 L 14 73/46 98 01/19/21 05:00 55 L 14 76/47 01/19/21 04:50 56 L 14 76/47 99 01/19/21 04:40 51 L 14 76/47 98 01/19/21 04:30 51 L 14 76/47 98 01/19/21 04:20 53 L 14 76/47 98 01/19/21 04:10 52 L 14 76/47 98 01/19/21 04:00 97.2 F L 55 L 57 L 14 76/49 98 01/19/21 03:50 58 L 14 76/49 99 01/19/21 03:40 60 22 76/49 99 01/19/21 03:30 55 L 14 76/49 98 01/19/21 03:20 57 L 14 76/49 98 01/19/21 03:10 56 L 14 76/49 98 01/19/21 03:00 56 L 14 70/48 98 01/19/21 02:50 55 L 14 70/48 98 01/19/21 02:40 53 L 20 70/48 98 01/19/21 02:30 53 L 14 78/42 01/19/21 02:20 53 L 14 78/42 98 01/19/21 02:10 53 L 14 78/42 98 01/19/21 02:00 96.3 F L 53 L 14 96/56 98 01/19/21 01:50 53 L 14 96/56 98 01/19/21 01:40 53 L 14 96/56 98 01/19/21 01:30 52 L 14 96/56 98 01/19/21 01:20 52 L 14 96/56 98 01/19/21 01:10 51 L 14 96/56 98 01/19/21 01:00 48 L 14 96/58 99 01/19/21 00:50 49 L 14 96/58 99 01/19/21 00:40 49 L 14 96/58 99 01/19/21 00:30 48 L 14 96/58 99 01/19/21 00:20 47 L 14 96/58 99 01/19/21 00:10 45 L 14 96/58 99 01/19/21 00:00 44 L 57 L 14 95/66 98 01/18/21 23:50 43 L 14 95/66 99 01/18/21 23:40 42 L 14 95/66 99 01/18/21 23:30 43 L 14 83/68 99 01/18/21 23:20 41 L 14 83/68 100 01/18/21 23:10 43 L 8 L 83/68 100 01/18/21 23:00 90.8 F L 44 L 14 95/60 99 01/18/21 22:50 97.8 F 46 L 16 95/60 99 01/18/21 22:48 99 01/18/21 22:24 50 L 101/51 01/18/21 22:21 90 F L 14 01/18/21 22:06 54 L 114/60 01/18/21 21:43 57 L 14 117/54 100 01/18/21 21:20 68 14 125/61 100 01/18/21 21:00 67 12 123/54 98 01/18/21 20:36 58 L 12 77/56 99 01/18/21 19:48 62 14 110/49 96 01/18/21 18:52 93 L 01/18/21 18:39 95.7 F L 69 18 136/81 90 L Intake and Output 01/18/21 01/18/21 01/19/21 14:59 22:59 06:59 Intake Total 2.143 674.299 Output Total 160 595 Balance -157.857 79.299 Intake: Intake, IV Titration 2.143 674.299 Amount Sodium Chloride 0.9% 1, 600 000 ml @ 75 mls/hr IV . [id number] [facility] Rx#:[id number] propofoL 1,000 mg In 2.143 74.299 Empty Bag 1 bag @ Titrate IV .Q0M [facility] Rx#: [id number] Output: Urine 160 595 Uretheral (Brunson) 160 160 Other: Weight 79.379 kg 65 kg ABP, PAP, CO, CI - Last 8 Hours Arterial Blood Pressure 89/38 Arterial Blood Pressure 91/39 Arterial Blood Pressure 95/40 Arterial Blood Pressure 86/36 Arterial Blood Pressure 89/37 Arterial Blood Pressure 96/40 Arterial Blood Pressure 94/39 Arterial Blood Pressure 94/39 Arterial Blood Pressure 94/39 Arterial Blood Pressure 94/38 Arterial Blood Pressure 102/44 Arterial Blood Pressure 105/44 Arterial Blood Pressure 98/42 Arterial Blood Pressure 98/42 Arterial Blood Pressure 102/44 Arterial Blood Pressure 102/44 Arterial Blood Pressure 275/206 Arterial Blood Pressure 116/48 Arterial Blood Pressure 126/50 Arterial Blood Pressure 103/42 Arterial Blood Pressure 106/43 Arterial Blood Pressure 103/42 Arterial Blood Pressure 102/42 Arterial Blood Pressure 104/42 Arterial Blood Pressure 103/41 Arterial Blood Pressure 100/42 Arterial Blood Pressure 100/41 Arterial Blood Pressure 102/42 Arterial Blood Pressure 108/44 Arterial Blood Pressure 112/46 Arterial Blood Pressure 115/46 Arterial Blood Pressure 118/48 Arterial Blood Pressure 121/48 Arterial Blood Pressure 125/49 Arterial Blood Pressure 136/52 Arterial Blood Pressure 0/0 -GENERAL: The patient is intubated and sedated HEENT: Pupils are round and equally reacting to light. EOMI. No scleral icterus. No conjunctival pallor. Normocephalic, atraumatic. No pharyngeal erythema. No thyromegaly. CARDIOVASCULAR: S1 and S2 present. No murmurs, rubs, or gallops. PULMONARY: Chest is clear to auscultation, no wheezing or crackles. ABDOMEN: Soft, nontender, nondistended, normoactive bowel sounds. No palpable organomegaly. MUSCULOSKELETAL: No joint swelling or deformity. EXTREMITIES: No cyanosis, clubbing, or pedal edema. NEUROLOGICAL: Gross neurological examination did not reveal any focal deficits. SKIN: No rashes. No petechiae, exam is limited because patient clinical status for example intubation Results CBC & Chem 7: 01/19/21 07:15 01/19/21 14:55 Labs: Abnormal Lab Results - Last 24 Hours (Table) 01/18/21 01/18/21 01/18/21 Range/Units 19:38 19:38 19:38 RDW 16.9 H (11.5-15.5) % ABG pH (7.35-7.45) ABG pCO2 (35-45) mmHg ABG pO2 (83-108) mmHg ABG HCO3 (21-25) mmol/L ABG Total CO2 (19-24) mmol/L ABG O2 Saturation (94-97) % Sodium 131 L (137-145) mmol/L Chloride 91 L (98-107) mmol/L BUN 37 H (7-17) mg/dL Plasma Lactic Acid Jason (0.7-2.0) mmol/L Phosphorus 4.6 H (2.5-4.5) mg/dL Total Bilirubin 0.1 L (0.2-1.3) mg/dL AST 54 H (14-36) U/L TSH (0.465-4.680) mIU/L Free T4 (0.78-2.19) ng/dL Ur Leukocyte Esterase Large H (Negative) Urine WBC 22 H (0-5) /hpf Urine Bacteria Occasional H (None) /hpf Urine Mucus Rare H (None) /hpf 01/18/21 01/18/21 01/19/21 Range/Units 19:38 19:38 00:51 RDW (11.5-15.5) % ABG pH 7.55 H (7.35-7.45) ABG pCO2 (35-45) mmHg ABG pO2 296 H (83-108) mmHg ABG HCO3 31 H (21-25) mmol/L ABG Total CO2 32 H (19-24) mmol/L ABG O2 Saturation 100.0 H (94-97) % Sodium (137-145) mmol/L Chloride (98-107) mmol/L BUN (7-17) mg/dL Plasma Lactic Acid Jason 3.4 H* (0.7-2.0) mmol/L Phosphorus (2.5-4.5) mg/dL Total Bilirubin (0.2-1.3) mg/dL AST (14-36) U/L TSH 25.100 H (0.465-4.680) mIU/L Free T4 2.34 H (0.78-2.19) ng/dL Ur Leukocyte Esterase (Negative) Urine WBC (0-5) /hpf Urine Bacteria (None) /hpf Urine Mucus (None) /hpf 01/19/21 Range/Units 05:07 RDW (11.5-15.5) % ABG pH 7.54 H (7.35-7.45) ABG pCO2 34 L (35-45) mmHg ABG pO2 166 H (83-108) mmHg ABG HCO3 29 H (21-25) mmol/L ABG Total CO2 30 H (19-24) mmol/L ABG O2 Saturation 99.8 H (94-97) % Sodium (137-145) mmol/L Chloride (98-107) mmol/L BUN (7-17) mg/dL Plasma Lactic Acid Jason (0.7-2.0) mmol/L Phosphorus (2.5-4.5) mg/dL Total Bilirubin (0.2-1.3) mg/dL AST (14-36) U/L TSH (0.465-4.680) mIU/L Free T4 (0.78-2.19) ng/dL Ur Leukocyte Esterase (Negative) Urine WBC (0-5) /hpf Urine Bacteria (None) /hpf Urine Mucus (None) /hpf Microbiology - Last 24 Hours (Table) 01/18/21 19:38 Urine Culture - Preliminary Urine,Voided 01/18/21 21:25 Sputum Culture - Preliminary Sputum Assessment and Plan Assessment: Suspected breakthrough seizure Acute hypoxic respiratory failure, status post intubation Hypotension, in shock state Possible Acute urinary tract infection versus asymptomatic bacteriuria dementia History of atrial fibrillation History ofasthma History ofheart failure History ofGERD History ofhypertension History ofhyperlipidemia History ofmitral valve prolapse History ofseizure disorder History ofhypothyroidism History ofParkinson disease History ofdevelopmental delay which is mild History ofschizoaffective disorder History ofchronic anemia History ofmoderate aortic stenosis with preserved LV function at ejection fraction of 50-55% History ofmoderate pulmonary hypertension History ofleft buttock wound Plan: This is a pleasant 80 years old female who presents with seizure and respiratory failure status post intubation Pulmonary/critical care consult, Which help with the vent management and critical care management Neurology consult recommended Keppra continue with Depakote. Continue with the with thyroxine Wound team consult Patient status post ceftriaxone 1 in ED. Repeat urine analysis Labs and medication were reviewed.. Continue same treatment. Continue with symptomatic treatment. Resume home medication. Monitor lytes and vitals. DVT and GI prophylaxis. Further recommendations depends on the clinical course of the patient DVT prophylaxis: Subcutaneous heparin GI Prophylaxis: Ppi PT/OT: Pending Prognosis is guarded
[2021-01-20 00:47] LABS: Appearance,Urine Cloudy (Clear); Bacteria,Urine Rare /hpf; Bilirubin,Urine Negative (Negative); Blood,Urine Trace (Negative); Color,Urine Yellow; Glucose,Urine (UA) Negative (Negative); Ketones,Urine 1+ (Negative); Leukocyte Esterase,Urine Large (Negative); Mucus,Urine Rare /hpf; Nitrite,Urine Negative (Negative); PH, Urine 5.5 (5.0-8.0); Protein,Urine Trace (Negative); RBC,Urine 13 /hpf (0-5); Specific Gravity,Urine 1.015 (1.001-1.035); Squamous Epithelial Cell,Urine <1 /hpf (0-4); Urobilinogen,Urine <2.0 mg/dL (<2.0); WBC,Urine 144 /hpf (0-5)
[2021-01-20 00:50] LABS: ABG Base Excess 2.6 mmol/L; ABG HCO3 28 mmol/L (21-25); ABG Oxygen Saturation 98.2 % (94-97); ABG PCO2 48 mmHg (35-45); ABG PH 7.37 (7.35-7.45); ABG PO2 103 mmHg (83-108); ABG TCO2 29 mmol/L (19-24); Allen Test Performed? Yes
[2021-01-20 00:52] LABS: Glucose,Whole Blood 76 mg/dL (75-99)
[2021-01-20] MEDS: SODIUM CHLORIDE 0.9% 1,000 ML IV SCH ×2 (03:12→14:19)
[2021-01-20 04:57] LABS: Anisocytosis Slight; Basophils % (A) 1 %; Eosinophils # (A) 0.2 k/uL (0-0.7); Eosinophils % (A) 3 %; HCT 28.3 % (34.0-46.0); HGB 9.6 gm/dL (11.4-16.0); Lymphocytes # (A) 1.6 k/uL (1.0-4.8); Lymphocytes % (A) 21 %; MCH 30.9 pg (25.0-35.0); MCHC 33.9 g/dL (31.0-37.0); MCV 91.1 fL (80.0-100.0); Mean Platelet Volume 8.8; Monocytes # (A) 0.5 k/uL (0-1.0); Monocytes % (A) 7 %; Neutrophils # (A) 5.2 k/uL (1.3-7.7); Neutrophils % (A) 69 %; Platelet Count 182 k/uL (150-450); RDW 17.1 % (11.5-15.5); WBC 7.5 k/uL (3.8-10.6)
[2021-01-20 05:07] LABS: African American GFR (CKD) >90 (>60 ml/min/1.73 sqM); Anion Gap 3 mmol/L; Blood Urea Nitrogen 18 mg/dL (7-17); Calcium 8.7 mg/dL (8.4-10.2); Carbon Dioxide 26 mmol/L (22-30); Chloride 109 mmol/L (98-107); Glucose 72 mg/dL (74-99); Non-African American GFR(CKD) >90 (>60 ml/min/1.73 sqM); Potassium 3.8 mmol/L (3.5-5.1); Sodium 138 mmol/L (137-145)
[2021-01-20] MEDS ORDERED: POTASSIUM BICARBONATE/CIT AC 20 MEQ TABLET.EFF NG-TUBE SCH (06:00)
--- NOTE | 2021-01-20 06:56 | XR ---
EXAMINATION TYPE: XR chest 1V portable DATE OF EXAM: 01/20/2021 HISTORY: Shortness of breath. COMPARISON: 01/19/2021 TECHNIQUE: Single view of the chest is submitted. FINDINGS: Demonstrated are scattered senescent parenchymal change. NG and ET tubes have been removed. Scattered senescent parenchymal change noted. Residual atelectasis or infiltrate left lower lobe. The heart is stable. Hilar and mediastinal structures are within normal limits. Degenerative changes are seen of the dorsal spine. IMPRESSION: 1. NG and ET tubes have been removed. Scattered senescent parenchymal change noted. Residual atelect asis or infiltrate left lower lobe.
[2021-01-20 07:26] LABS: T4, Free (Free Thyroxine) 1.83 ng/dL (0.78-2.19)
[2021-01-20] MEDS: FORMOTEROL FUMARATE 20 MCG/2 ML NEBU INHALATION SCH ×2 (07:39→20:06)
[2021-01-20] MEDS: BUDESONIDE 0.25 MG/2 ML NEBU INHALATION SCH ×2 (07:39→20:06)
[2021-01-20] MEDS: ATORVASTATIN 10 MG TAB PEG/G-TUBE SCH (08:28)
[2021-01-20] MEDS: APIXABAN 2.5 MG TABLET PEG/G-TUBE SCH ×2 (08:28→23:01)
[2021-01-20] MEDS: predniSONE 5 MG TAB PEG/G-TUBE SCH (08:28)
[2021-01-20] MEDS: risperiDONE 1 MG TAB PEG/G-TUBE SCH ×2 (08:28→23:04)
[2021-01-20] MEDS: VALPROIC ACID ORAL SOLN 250 MG/5 ML CUP PEG/G-TUBE SCH ×2 (08:28→23:04)
[2021-01-20] MEDS: levETIRAcetam 500 MG TAB PEG/G-TUBE SCH ×2 (08:29→23:07)
[2021-01-20] MEDS: LEVOTHYROXINE IVP 100 MCG/5 ML VIAL IV SCH (08:29)
[2021-01-20] MEDS: CHLORHEXIDINE GLUCONATE 15 ML CUP MUCOUS MEM SCH ×2 (08:29→23:07)
[2021-01-20] MEDS: PANTOPRAZOLE 40 MG/10 ML VIAL IV SCH (08:30)
--- NOTE | 2021-01-20 10:00 | P.PN ---
Subjective Progress Note Date: 01/20/21 This is a 80-year-old female patient, known to me from previous admissions, known to have multiple medical problems and comorbidities most significant a history of dementia along with schizophrenia with Parkinson's disease was been essentially bedridden and she has a 24-hour caregiver at home. Recently, the patient has developed a stage IV sacral decub ulcer and the patient was in the hospital yesterday for a debridement procedure that was done and the patient was discharged home. Discharge, the patient was noted to have seizure activity at home. Note that she has history of seizures and she has been maintained on Depakote on outpatient basis. She was given all of her medications with a caregiver without any interruption. Her seizure lasted for few minutes and the patient was postictal. Apparently she was having tonic-clonic activity as documented by the emergency department team. The patient in the emergency was evaluated. Mentation was altered. She was having twitching in her tongue and mouth area and it was suspected that she was having ongoing seizure activity. For that reason, the patient was started on propofol and the patient was intubated and placed on a mechanical ventilator for airway protection. Note that the patient apparently was having seizures in the past. She had to seizure activities back in October 2020. She sees a neurologist out of [facility]. She was seen by her neurologist recently and she has not skipped any of her Depakote doses. The patient was given a total of 1 mg Ativan in the emergency department. Her valproic acid level was at 92. The patient was seen by neurology today and the patient was given 1 g every 12 hours and the neurologist asked to continue the Depakote. CAT scan of the brain was done in the emergency department showed no acute abnormalities. No reported fever. No reported neck stiffness. No reported aspiration. The patient had a white cell count of 8.4 with a hemoglobin of 10.2. This morning, it out with this patient in intensive care unit. She was on a mechanical ventilator. She was an assist-control at the rate of 14 with tidal volume of 375 and FiO2 of 50% with a PEEP of 5. Blood gas showed a pH of 7.54 with a pCO2 of 34 and pO2 166. Chest patient was somewhat limited as the patient has significant Scoliosis of the thoracic spine. Nevertheless, there was no airspace disease or consolidation. ET tube was in a good location. The patient had no significant orotracheal secretions. The patient remains hemodynamically stable. She was given a total of 2 L of IV fluids in the emergency department and she did not require any pressors. Her cardiac rhythm was sinus all of the patient has history of atrial fibrillation and she is maintained on anticoagulation with Eliquis. She also has obstructive sleep apnea and this was severe with an AHI of 76 and she was placed on APAP on outpatient basis. There is a month her various other comorbidities. 01/20/2021 the patient is being seen in follow-up in the intensive care unit. The patient got extubated yesterday and currently she is on a BiPAP at a pressure of 10/5 cm of water with an FiO2 of 60%. She is arousable. She is generating tidal volumes in the 550 range with a respiratory rate of 20. The blood gases from today showed a pH of 7.37 with a pCO2 of 48 empiric of 103. She is calm and comfortable while being on a BiPAP. Note that the patient postextubation she was placed on a BiPAP knowing that she has also severe ob structive sleep apnea. Chest x-ray from today shows some residual atelectatic changes and left lower lobe. Otherwise no acute abnormalities have been noted. Overnight, no seizure activity has been noted. The patient is free of any seizures for now. A EEG was done yesterday that showed abnormal findings with slowing suggestive of some mild encephalopathy. Meanwhile, the patient remains on Keppra 500 mg twice a day through her PEG tube and she is also on valproic acid syrup. TSH is down to 10.1. Free T4 is at 1.84. Rest of the electrolytes all stable for now. She is arousable. Brunson cath is in place. IV fluids are running at the rate of 75 mL an hour. Objective - Vital Signs Vital signs: Vital Signs Temp 96.2 F L 01/20/21 08:00 Pulse 82 01/20/21 09:00 Resp 12 01/20/21 09:00 BP 74/38 01/19/21 13:00 Pulse Ox 92 L 01/20/21 09:00 Intake & Output 01/19/21 01/20/21 01/20/21 18:59 06:59 18:59 Intake Total 2557.991 1041 334 Output Total 810 360 110 Balance 1747.991 681 224 Weight 65 kg Intake: IV 858 936 234 Pressure Bag 33 36 9 Sodium Chloride 0.9% 1, 825 900 225 000 ml @ 75 mls/hr IV . [id number] [facility] Rx#:[id number] Intake, IV Titration 1599.991 Amount Potassium Chloride 10 meq 400 In Water For Injection 1 100ml.bag @ 100 mls/hr IVPB Q1H [facility] Rx#: [id number] Sodium Chloride 0.9% 1, 75 000 ml @ 75 mls/hr IV . [id number] [facility] Rx#:[id number] Sodium Chloride 0.9% 1, 1000 000 ml @ 999 mls/hr IV . Q1H1M [facility] Rx#:[id number] propofoL 1,000 mg In 124.991 Empty Bag 1 bag @ Titrate IV .Q0M [facility] Rx#: [id number] Tube Feeding 100 100 Other 105 Output: Gastric Drainage 400 Urine 410 360 110 Other: Voiding Method Indwelling Catheter Indwelling Catheter ABP, PAP, CO, CI - Last Documented Arterial Blood Pressure 121/44 - Exam Calm and comfortable, the patient is resting comfortably on a BiPAP. She is arousable. She'll be given a break off the BiPAP for now. Head exam was generally normal. There was no scleral icterus or corneal arcus. Mucous membranes were moist. Neck was supple and without jugular venous distension, thyromegaly, or carotid bruits. Carotids were easily palpable bilaterally. There was no adenopathy. Orogastric and aortic tube are both in place. Lungs are diminished and the patient is on obvious thoracic and thoracolumbar kyphoscoliosis with cervical kyphosis. Rest of the equal and symmetrical. No wheezes or rhonchi. Cardiac exam revealed the PMI to be normally situated and sized. The rhythm was regular and no extrasystoles were noted during several minutes of auscultation. The first and second heart sounds were normal and physiologic splitting of the second heart sound was noted. There were systolic ejection murmur consistent wit h aortic stenosis , rubs, clicks, or gallops. Abdominal exam revealed normal bowel sounds. The abdomen was soft, non-tender, and without masses, organomegaly, or appreciable enlargement of the abdominal aorta. The patient is a PEG tube in place and the PEG tube site is dry clean and intact and there is no direct tenderness or rebound tensile guarding. Bowel sounds are hypoactive at the present Examination of the extremities revealed easily palpable radial, femoral and pedal pulses. There was no cyanosis, clubbing or edema. Examination of the skin revealed no evidence of significant rashes, suspicious appearing nevi or other concerning lesions. 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 Neurologically the patient is following some simple commands. No focal neurological deficit. She is currently off propofol. - Labs CBC & Chem 7: 01/20/21 04:38 01/20/21 04:38 Labs: Abnormal Lab Results - Last 24 Hours (Table) 01/19/21 01/20/21 01/20/21 Range/Units 00:27 00:47 04:38 RBC 3.10 L (3.80-5.40) m/uL Hgb 9.6 L (11.4-16.0) gm/dL Hct 28.3 L (34.0-46.0) % RDW 17.1 H (11.5-15.5) % ABG pCO2 48 H (35-45) mmHg ABG HCO3 28 H (21-25) mmol/L ABG Total CO2 29 H (19-24) mmol/L ABG O2 Saturation 98.2 H (94-97) % Chloride (98-107) mmol/L BUN (7-17) mg/dL Creatinine (0.52-1.04) mg/dL Glucose (74-99) mg/dL TSH (0.465-4.680) mIU/L Urine Appearance Cloudy H (Clear) Urine Protein Trace H (Negative) Urine Ketones 1+ H (Negative) Urine Blood Trace H (Negative) Ur Leukocyte Esterase Large H (Negative) Urine RBC 13 H (0-5) /hpf Urine WBC 144 H (0-5) /hpf Urine WBC Clumps Few H (None) /hpf Urine Bacteria Rare H (None) /hpf Urine Mucus Rare H (None) /hpf 01/20/21 01/20/21 Range/Units 04:38 04:38 RBC (3.80-5.40) m/uL Hgb (11.4-16.0) gm/dL Hct (34.0-46.0) % RDW (11.5-15.5) % ABG pCO2 (35-45) mmHg ABG HCO3 (21-25) mmol/L ABG Total CO2 (19-24) mmol/L ABG O2 Saturation (94-97) % Chloride 109 H (98-107) mmol/L BUN 18 H (7-17) mg/dL Creatinine 0.38 L (0.52-1.04) mg/dL Glucose 72 L (74-99) mg/dL TSH 10.100 H (0.465-4.680) mIU/L Urine Appearance (Clear) Urine Protein (Negative) Urine Ketones (Negative) Urine Blood (Negative) Ur Leukocyte Esterase (Negative) Urine RBC (0-5) /hpf Urine WBC (0-5) /hpf Urine WBC Clumps (None) /hpf Urine Bacteria (None) /hpf Urine Mucus (None) /hpf Microbiology - Last 24 Hours (Table) 01/18/21 19:38 Blood Culture - Preliminary Blood No Growth after 24 hours 01/18/21 19:38 Blood Culture - Preliminary Blood No Growth after 24 hours 01/18/21 21:25 Gram Stain - Preliminary Sputum Sputum Culture - Preliminary Assessment and Plan Plan: 1 altered mentation secondary to breakthrough seizure and the patient with known history of epilepsy was maintained on Depakote on outpatient basis. Note that the CAT scan of the brain was negative and the Depakote level was adequate. There has been breakthrough seizure this patient with second altered mentation. She is currently on a combination of Depakote. EEG Showed No Active Seizure Activity. Clinically She Has Been Any Seizure over the past 24 Hours. She Was Weaned off Sedation and She Was Extubated Yesterday to a BiPAP. EEG showed no seizure activity. Mental status is gradually improving and she seems to be much more awake on today's evaluation. 2 acute hypoxic respiratory failure. Blood gas shows a component of respiratory alkalosis, mechanical ventilator-induced. Chest x-rays essentially clear with some limited atelectasis in the left lower lobe. The patient was extubated to BiPAP. She was extubated on 01/20/2021 at 1 AM and currently she is on a BiPAP. She is tolerating the BiPAP without any major difficulties. 3 dementia 4 Parkinson's disease 5 mild developmental delay 6 schizoaffective disorder 7 history of epilepsy 8 history of moderate degree of aortic stenosis and the patient has an obvious cardiac murmur on examination. Based on previous echocardiogram, ejection fraction was around 50-55% and the patient has moderate degree of pulmonary hypertension 9 stage IV left buttocks ulcers post-debridement without evidence of any acute infection. 10 esophageal stricture and the patient has a PEG tube in place for enteral feeding and nutritional support 11 abnormal gait due to our concern is and then dementia and the patient is w heelchair-bound and the patient has a caregiver at all 24 7 12 history approximately atrial fibrillation current rhythm is sinus 13 hypertension 14 hyperlipidemia 15 previous history of pneumonia and respiratory failure requiring prolonged hospitalization mechanical ventilation 16 history of recurrent UTIs 17 hypothyroidism 18 obstructive sleep apnea with an AHI of 78 maintained on a Pap on outpatient basis Plan Continue with IV fluids and the patient is currently on 0.9 at 75 mL an hour Continue Depakote/ Keppra for seizure control Keppra was added for seizure control She didn't break off the BiPAP and put on an oxygen by nasal cannula and titrated flow to maintain a saturation above 90%. Chest x-ray showing only some atelectatic changes and left lung base. Resume and the coagulation with Eliquis Continue bronchodilators Continue thyroid hormone replacement We'll initiate enteral feeding for nutritional support via PEG tube We'll continue to follow make further recommendations based on progress.
[2021-01-20 11:49] LABS: Glucose,Whole Blood 74 mg/dL (75-99)
[2021-01-20 18:08] LABS: Glucose,Whole Blood 101 mg/dL (75-99)
--- NOTE | 2021-01-20 18:46 | P.PN ---
Subjective Progress Note Date: 01/20/21 The patient is seen at bedside and per the patient nurse the patient was extubated and the no seizure-like activity is noted. Objective - Vital Signs Vital signs: Vital Signs Temp 97.2 F L 01/20/21 16:00 Pulse 77 01/20/21 18:00 Resp 24 01/20/21 18:00 BP 74/38 01/19/21 13:00 Pulse Ox 96 01/20/21 18:00 Intake & Output 01/19/21 01/20/21 01/20/21 18:59 06:59 18:59 Intake Total 2557.991 1041 1271 Output Total 810 360 500 Balance 1747.991 681 771 Weight 65 kg 65 kg Intake: IV 858 936 936 Pressure Bag 33 36 36 Sodium Chloride 0.9% 1, 825 900 900 000 ml @ 75 mls/hr IV . [id number] [facility] Rx#:[id number] Intake, IV Titration 1599.991 Amount Potassium Chloride 10 meq 400 In Water For Injection 1 100ml.bag @ 100 mls/hr IVPB Q1H [facility] Rx#: [id number] Sodium Chloride 0.9% 1, 75 000 ml @ 75 mls/hr IV . [id number] [facility] Rx#:[id number] Sodium Chloride 0.9% 1, 1000 000 ml @ 999 mls/hr IV . Q1H1M [facility] Rx#:[id number] propofoL 1,000 mg In 124.991 Empty Bag 1 bag @ Titrate IV .Q0M [facility] Rx#: [id number] Tube Feeding 100 275 Other 105 60 Output: Gastric Drainage 400 Urine 410 360 500 Other: Voiding Method Indwelling Catheter Indwelling Catheter ABP, PAP, CO, CI - Last Documented Arterial Blood Pressure 112/45 - Exam GENERAL: The patient is lying in bed and is not in acute distress. LUNG: Clear to auscultation bilaterally no wheezing noted throughout. Not labored breathing. she is on BiPAP machine. NEUROLOGICAL: Limited since on BiPAP Higher mental function: Drowsy but is awakeable to voice. She nods appropriately to her name. Followed few simple commands ( wiggling her toes and raising arms on command). Otherwise rest is limited. Cranial nerves: The pupils are round, equal and reactive to light (pupils are 3mm bilaterally). Primary gaze is midline. No facial weakness. Otherwise rest is limited because of her condition. Motor: Is wheel chair bound. The strength is limited because of her condition. She is moving upper extremities above gravity without drift. She is able to briefly squeeze and move the right hand antigravity. She is able to wiggle her toes bilaterally on command. Otherwise she has increase tone in upper and slight lower (per multiple games dealer is baseline). Appear to have atrophy and slight decrease tone and bulk in bilateral wrist/hands. Cerebellum: Unable to assess. Sensation: Unable to assess. Reflexes (right/left): Biceps are 3+ bilaterally, ticeps are 1-2+ bilaterally. Otherwsie 1+ throughout. Plantars are mute bilaterally. WORK-UP: AST 54 ALTs 3480 slightly elevated that. Her creatinine is 0.52 which is within normal limits. Calcium is 9.6 which is considered within normal limits. Phosphorus 4.6 which is elevated and it's just borderline above normal limits. The Xyrem is 2.0 was considered within normal limits. TSH is 25 which is elevated and the free T4 is 2.34 Urinalysis is the leukocyte esterase is a large, urine white blood cells 22, urine bacteria is occasional. Valproic acid level is 92.0 which is considered within normal limits. CT of the head is reported as ventricular enlargement greater than cell colic enlargement favored to represent central greater than cortical cerebral volume loss. Normal pressure hydrocephalus considered less likely but is not excluded. Involutional and chronic small vessel ischemic changes. Patient last CT of the head the prior to this current admission is on 2018 and a remote reported as no definite acute process. However finding which could correlate with a clinical diagnosis of normal pressure hydrocephalus. I personally reviewed that too CT of the head and I feel the patient has a component of normal pressure hydrocephalus but the patient at this seems has had this for at least since 2019 from our imaging not sure how far back it goes. Routine EEG on 01/19/2021: Is abnormal. The back of slowing suggestive of mild encephalopathy. There are no focal slowing, epileptiform discharges or seizure in the EEG. - Labs CBC & Chem 7: 01/20/21 04:38 01/20/21 04:38 Labs: Abnormal Lab Results - Last 24 Hours (Table) 01/19/21 01/20/21 01/20/21 Range/Units 00:27 00:47 04:38 RBC 3.10 L (3.80-5.40) m/uL Hgb 9.6 L (11.4-16.0) gm/dL Hct 28.3 L (34.0-46.0) % RDW 17.1 H (11.5-15.5) % ABG pCO2 48 H (35-45) mmHg ABG HCO3 28 H (21-25) mmol/L ABG Total CO2 29 H (19-24) mmol/L ABG O2 Saturation 98.2 H (94-97) % Chloride (98-107) mmol/L BUN (7-17) mg/dL Creatinine (0.52-1.04) mg/dL Glucose (74-99) mg/dL POC Glucose (mg/dL) (75-99) mg/dL TSH (0.465-4.680) mIU/L Urine Appearance Cloudy H (Clear) Urine Protein Trace H (Negative) Urine Ketones 1+ H (Negative) Urine Blood Trace H (Negative) Ur Leukocyte Esterase Large H (Negative) Urine RBC 13 H (0-5) /hpf Urine WBC 144 H (0-5) /hpf Urine WBC Clumps Few H (None) /hpf Urine Bacteria Rare H (None) /hpf Urine Mucus Rare H (None) /hpf 01/20/21 01/20/21 01/20/21 Range/Units 04:38 04:38 11:48 RBC (3.80-5.40) m/uL Hgb (11.4-16.0) gm/dL Hct (34.0-46.0) % RDW (11.5-15.5) % ABG pCO2 (35-45) mmHg ABG HCO3 (21-25) mmol/L ABG Total CO2 (19-24) mmol/L ABG O2 Saturation (94-97) % Chloride 109 H (98-107) mmol/L BUN 18 H (7-17) mg/dL Creatinine 0.38 L (0.52-1.04) mg/dL Glucose 72 L (74-99) mg/dL POC Glucose (mg/dL) 74 L (75-99) mg/dL TSH 10.100 H (0.465-4.680) mIU/L Urine Appearance (Clear) Urine Protein (Negative) Urine Ketones (Negative) Urine Blood (Negative) Ur Leukocyte Esterase (Negative) Urine RBC (0-5) /hpf Urine WBC (0-5) /hpf Urine WBC Clumps (None) /hpf Urine Bacteria (None) /hpf Urine Mucus (None) /hpf 01/20/21 Range/Units 18:06 RBC (3.80-5.40) m/uL Hgb (11.4-16.0) gm/dL Hct (34.0-46.0) % RDW (11.5-15.5) % ABG pCO2 (35-45) mmHg ABG HCO3 (21-25) mmol/L ABG Total CO2 (19-24) mmol/L ABG O2 Saturation (94-97) % Chloride (98-107) mmol/L BUN (7-17) mg/dL Creatinine (0.52-1.04) mg/dL Glucose (74-99) mg/dL POC Glucose (mg/dL) 101 H (75-99) mg/dL TSH (0.465-4.680) mIU/L Urine Appearance (Clear) Urine Protein (Negative) Urine Ketones (Negative) Urine Blood (Negative) Ur Leukocyte Esterase (Negative) Urine RBC (0-5) /hpf Urine WBC (0-5) /hpf Urine WBC Clumps (None) /hpf Urine Bacteria (None) /hpf Urine Mucus (None) /hpf Microbiology - Last 24 Hours (Table) 01/18/21 21:25 Gram Stain - Preliminary Sputum Sputum Culture - Preliminary Gram Neg Bacilli 01/18/21 19:38 Urine Culture - Preliminary Urine,Voided Gram Neg Bacilli 01/18/21 19:38 Blood Culture - Preliminary Blood No Growth after 24 hours 01/18/21 19:38 Blood Culture - Preliminary Blood No Growth after 24 hours Assessment and Plan Assessment: Clinical Status epilepticus. Underlying infection can provoke seizure (has UTI)--resolved. Altered mental status due to underlying UTI. Hypothermia on presentation (unsure exact cause but possibly can be due to UTI leading to ?sepsis) History of hypertension but the since this hospital admission the patient has been hypotensive Hypotensive History of epilepsy(since 2018) Radiographically appears Normal Pressure hydrocephalus (since at least 2019 from our imaging.) Wheel chair bound Mild hyponatremia (131--->134 History of atrial fibrillation on Eliquis Dyslipidemia Dysphagia status post PEG tube Plan: * Patient and is on the her home dose of Depakote 50 mg every 12 hours via PEG tube (antiepiletic drug) and on this admission added Keppra 500mg once every 12 hours via PEG tube (did not increase Depakote since her Depakote level are on the high normal side and to avoid toxic) * We'll defer the rest of the medical management to the ICU in the primary team. * Upon discharge the patient needs to follow-up with her neurologist (Nemesio Anaya) as an outpatient within 1-2 weeks. * Regarding this possible radiographic normal pressure hydrocephalus will defer management as outpatient with her neurologist. This was relayed to her caregiver. The plan is discussed with the ICU nurse. I updated the patient's caregiver (Hannah) via phone. Marcus Childers M.D. Neuro-hospital Time with Patient: Less than 30
[2021-01-20] MEDS: INSULIN ASPART (NovoLOG) 100 UNIT/ML VIAL SQ SCH (18:47)
[2021-01-20] MEDS ORDERED: CEFEPIME 2 GM in SODIUM CHLORIDE 0.9% 100 ML IVPB SCH (19:12)
--- NOTE | 2021-01-20 19:21 | P.PN ---
Subjective This is a pleasant 80 years old female with past medical history of dementia, atrial fibrillation, asthma, heart failure, GERD, hypertension, hyperlipidemia, mitral valve prolapse, seizure disorder, hypothyroidism, Parkinson disease, developmental delay which is mild, she is a affective disorder, chronic anemia, moderate aortic stenosis with preserved LV function at ejection fraction of 50- 55%, moderate pulmonary hypertension, left buttock wound, Patient was sent for possible seizure at home, patient was nonverbal upon arrival, she was hypothermic at 95.7, and 19.8, she was bradycardic at 43 to 50s, and hypotensive with blood pressure 83/68. Also patient was saturating 90% on room air however her oxygen saturation deteriorated and she needed to 15 L nonrebreather and eventually she got intubated in the emergency room On admission her CBC is unremarkable. Sodium is 131 on the low side, potassium normal, creatinine normal at 0.5. Liver enzymes are unremarkable, ProBNP is 351. TSH is elevated at 25.1 and free T4 is also elevated at 2.3. Urine analysis showing large leukocyte esterase and WBC elevated at 22. Valproic acid is 92 which is therapeutic. Coronavirus not detected. Chest x-ray: Left lower lobe infiltrate and atelectasis EKG showing sinus bradycardia at 47 with first-degree AV block, no significant ST-T changes. And QTC is 461. CT of the brain: No acute process. Ventricular enlargement with normal pressure hydrocephalus is considered less likely. Patient in the emergency room received ceftriaxone, several boluses of normal saline. Started on a propofol after intubation. Also with seizure control 01/20/2021 This morning patient was still intubated and on mechanical ventilation with pulmonary/critical care team on the case. He was undergoing EEG testing however no seizure-like activities were noted. Neurology were following the case closely and she was kept on Keppra and her Depakote. There was suspicion of hyperthyroidism upon admission, repeat TSH showing improvement down to 10 from 25 and free T4 also improved 2.3 down to 1.8 which is also within the reference ranges. However patient repeat urinalysis showing more possible infection with urine culture is growing gram-negative bacilli. Chest x-ray showing left lower lobe consolidation with sputum culture is growing gram-negative bacilli. Patient is a started on cefepime antibiotics and follow up the final culture results. Her blood pressure is 107/44. Hyperthermia is improved up to 96.2 and later on become more normal. Patient is On normal saline at 75 mL/h, IV levothyroxine 50 g, Obed was 2.5 mg Review of Systems: n/a Active Medications Generic Name Dose Route Start Last Admin Trade Name Freq PRN Reason Stop Dose Admin Apixaban 2.5 mg 01/19/21 20:00 01/20/21 08:28 Apixaban 2.5 Mg Tablet PEG/G-TUBE 2.5 mg BID@ DEANNA Administration Protocol Atorvastatin Calcium 10 mg 01/20/21 08:00 01/20/21 08:28 Atorvastatin 10 Mg Tab PEG/G-TUBE 10 mg DAILY@0800 DEANNA Administration Budesonide 0.25 mg 01/19/21 20:00 01/20/21 07:39 Budesonide 0.25 Mg/2 Ml Nebu INHALATION 0.25 mg RT-BID@ DEANNA Administration Chlorhexidine Gluconate 15 ml 01/19/21 09:00 01/20/21 08:29 Chlorhexidine Gluconate 15 Ml Cup MUCOUS MEM Not Given BID DEANNA Formoterol Fumarate 20 mcg 01/19/21 20:00 01/20/21 07:39 Formoterol Fumarate 20 Mcg/2 Ml Nebu INHALATION 20 mcg RT-BID@ DEANNA Administration Propofol 1,000 mg/ IV Solution 100 mls @ 0 mls/hr 01/18/21 21:00 01/19/21 09:00 IV 0 mcg/kg/min .Q0M DEANNA 0 mls/hr Titration Protocol Titrate Sodium Chloride 1,000 mls @ 75 mls/hr 01/18/21 21:45 01/20/21 14:19 Saline 0.9% IV 75 mls/hr .[id number] DEANNA Administration Cefepime HCl 2 gm/ Sodium 100 mls @ 25 mls/hr 01/20/21 19:15 Chloride IVPB Q8HR DEANNA Insulin Aspart 0 unit 01/20/21 18:00 01/20/21 18:47 Insulin Aspart (Novolog) 100 Unit/Ml Vial SQ Not Given Q6H [facility] Protocol Latanoprost 1 drops 01/19/21 20:00 01/19/21 22:56 Latanoprost 0.005% Ophth Drops 2.5 Ml Btl BOTH EYES 1 drops HS@1999 DEANNA Administration Levetiracetam 500 mg 01/19/21 11:45 01/20/21 08:29 Levetiracetam 500 Mg Tab PEG/G-TUBE 500 mg Q12HR DEANNA Administration Levothyroxine Sodium 50 mcg 01/20/21 09:00 01/20/21 08:29 Levothyroxine Ivp 100 Mcg/5 Ml Vial IV 50 mcg DAILY DEANNA Administration Miscellaneous Information 1 each 01/19/21 07:36 Potassium Replacement Protocol 1 Each Misc MISCELLANE DAILY PRN Per Protocol Protocol Miscellaneous Information 1 each 01/19/21 15:23 Potassium Replacement Protocol 1 Each Misc MISCELLANE DAILY PRN Per Protocol Protocol Montelukast Sodium 5 mg 01/19/21 20:00 01/19/21 22:56 Montelukast 5 Mg Chewable PEG/G-TUBE 5 mg HS@1999 DEANNA Administration Naloxone HCl 0.2 mg 01/18/21 21:40 Naloxone 0.4 Mg/Ml 1 Ml Vial IV Q2M PRN Opioid Reversal Pantoprazole Sodium 40 mg 01/19/21 09:00 01/20/21 08:30 Pantoprazole 40 Mg/10 Ml Vial IV 40 mg DAILY DEANNA Administration Prednisone 5 mg 01/20/21 08:00 01/20/21 08:28 Prednisone 5 Mg Tab PEG/G-TUBE 5 mg DAILY@0800 DEANNA Administration Risperidone 1 mg 01/19/21 20:00 01/20/21 08:28 Risperidone 1 Mg Tab PEG/G-TUBE 1 mg BID@ DEANNA Administration Valproic Acid 500 mg 01/19/21 20:00 01/20/21 08:28 Valproic Acid Oral Soln 250 Mg/5 Ml Cup PEG/G-TUBE 500 mg BID@ DEANNA Administration Objective - Vital Signs Vital signs: Vital Signs Temp 97.2 F L 01/20/21 16:00 Pulse 82 01/20/21 19:00 Resp 12 01/20/21 19:00 BP 74/38 01/19/21 13:00 Pulse Ox 93 L 01/20/21 19:00 Intake & Output 01/20/21 01/20/21 01/21/21 06:59 18:59 06:59 Intake Total 1041 1271 103 Output Total 360 500 50 Balance 681 771 53 Weight 65 kg Intake: IV 936 936 78 Pressure Bag 36 36 3 Sodium Chloride 0.9% 1, 900 900 75 000 ml @ 75 mls/hr IV . [id number] [facility] Rx#:[id number] Tube Feeding 275 25 Other 105 60 Output: Urine 360 500 50 Other: Voiding Method Indwelling Catheter Indwelling Catheter ABP, PAP, CO, CI - Last Documented Arterial Blood Pressure 107/44 - Exam -GENERAL: The patient is intubated and sedated HEENT: Pupils are round and equally reacting to light. EOMI. No scleral icterus. No conjunctival pallor. Normocephalic, atraumatic. No pharyngeal erythema. No thyromegaly. CARDIOVASCULAR: S1 and S2 present. No murmurs, rubs, or gallops. PULMONARY: Chest is clear to auscultation, no wheezing or crackles. ABDOMEN: Soft, nontender, nondistended, normoactive bowel sounds. No palpable or ganomegaly. MUSCULOSKELETAL: No joint swelling or deformity. EXTREMITIES: No cyanosis, clubbing, or pedal edema. NEUROLOGICAL: Gross neurological examination did not reveal any focal deficits. SKIN: No rashes. No petechiae, exam is limited because patient clinical status for example intubation - Labs CBC & Chem 7: 01/20/21 04:38 01/20/21 04:38 Labs: Abnormal Lab Results - Last 24 Hours (Table) 01/19/21 01/20/21 01/20/21 Range/Units 00:27 00:47 04:38 RBC 3.10 L (3.80-5.40) m/uL Hgb 9.6 L (11.4-16.0) gm/dL Hct 28.3 L (34.0-46.0) % RDW 17.1 H (11.5-15.5) % ABG pCO2 48 H (35-45) mmHg ABG HCO3 28 H (21-25) mmol/L ABG Total CO2 29 H (19-24) mmol/L ABG O2 Saturation 98.2 H (94-97) % Chloride (98-107) mmol/L BUN (7-17) mg/dL Creatinine (0.52-1.04) mg/dL Glucose (74-99) mg/dL POC Glucose (mg/dL) (75-99) mg/dL TSH (0.465-4.680) mIU/L Urine Appearance Cloudy H (Clear) Urine Protein Trace H (Negative) Urine Ketones 1+ H (Negative) Urine Blood Trace H (Negative) Ur Leukocyte Esterase Large H (Negative) Urine RBC 13 H (0-5) /hpf Urine WBC 144 H (0-5) /hpf Urine WBC Clumps Few H (None) /hpf Urine Bacteria Rare H (None) /hpf Urine Mucus Rare H (None) /hpf 01/20/21 01/20/21 01/20/21 Range/Units 04:38 04:38 11:48 RBC (3.80-5.40) m/uL Hgb (11.4-16.0) gm/dL Hct (34.0-46.0) % RDW (11.5-15.5) % ABG pCO2 (35-45) mmHg ABG HCO3 (21-25) mmol/L ABG Total CO2 (19-24) mmol/L ABG O2 Saturation (94-97) % Chloride 109 H (98-107) mmol/L BUN 18 H (7-17) mg/dL Creatinine 0.38 L (0.52-1.04) mg/dL Glucose 72 L (74-99) mg/dL POC Glucose (mg/dL) 74 L (75-99) mg/dL TSH 10.100 H (0.465-4.680) mIU/L Urine Appearance (Clear) Urine Protein (Negative) Urine Ketones (Negative) Urine Blood (Negative) Ur Leukocyte Esterase (Negative) Urine RBC (0-5) /hpf Urine WBC (0-5) /hpf Urine WBC Clumps (None) /hpf Urine Bacteria (None) /hpf Urine Mucus (None) /hpf 01/20/21 Range/Units 18:06 RBC (3.80-5.40) m/uL Hgb (11.4-16.0) gm/dL Hct (34.0-46.0) % RDW (11.5-15.5) % ABG pCO2 (35-45) mmHg ABG HCO3 (21-25) mmol/L ABG Total CO2 (19-24) mmol/L ABG O2 Saturation (94-97) % Chloride (98-107) mmol/L BUN (7-17) mg/dL Creatinine (0.52-1.04) mg/dL Glucose (74-99) mg/dL POC Glucose (mg/dL) 101 H (75-99) mg/dL TSH (0.465-4.680) mIU/L Urine Appearance (Clear) Urine Protein (Negative) Urine Ketones (Negative) Urine Blood (Negative) Ur Leukocyte Esterase (Negative) Urine RBC (0-5) /hpf Urine WBC (0-5) /hpf Urine WBC Clumps (None) /hpf Urine Bacteria (None) /hpf Urine Mucus (None) /hpf Microbiology - Last 24 Hours (Table) 01/18/21 21:25 Gram Stain - Preliminary Sputum Sputum Culture - Preliminary Gram Neg Bacilli 01/18/21 19:38 Urine Culture - Preliminary Urine,Voided Gram Neg Bacilli 01/18/21 19:38 Blood Culture - Preliminary Blood No Growth after 24 hours 01/18/21 19:38 Blood Culture - Preliminary Blood No Growth after 24 hours Assessment and Plan Assessment: Suspected breakthrough seizure Acute hypoxic respiratory failure, status post intubation Hypotension, improvement Acute urinary tract infection secondary to gram-negative bacilli Left lower lobe pneumonia secondary to gram-negative bacilli dementia History of atrial fibrillation History ofasthma History ofheart failure History ofGERD History ofhypertension History ofhyperlipidemia History ofmitral valve prolapse History ofseizure disorder History ofhypothyroidism History ofParkinson disease History ofdevelopmental delay which is mild History ofschizoaffective disorder History ofchronic anemia History ofmoderate aortic stenosis with preserved LV function at ejection frac tion of 50-55% History ofmoderate pulmonary hypertension History ofleft buttock wound Plan: This is a pleasant 80 years old female who presents with seizure and respiratory failure status post intubation Pulmonary/critical care consult, Which help with the vent management and critical care management Neurology consult recommended Keppra continue with Depakote. Continue with iv thyroxine Wound team consult Start cefepime and follow-up final culture results Labs and medication were reviewed.. Continue same treatment. Continue with symptomatic treatment. Resume home medication. Monitor lytes and vitals. DVT and GI prophylaxis. Further recommendations depends on the clinical course of the patient DVT prophylaxis: Subcutaneous heparin GI Prophylaxis: Ppi PT/OT: Pending Prognosis is guarded
[2021-01-20] MEDS: CEFEPIME 2 GM in SODIUM CHLORIDE 0.9% 100 ML IVPB SCH (23:02)
[2021-01-20] MEDS: LATANOPROST 0.005% OPHTH DROPS 2.5 ML BTL BOTH EYES SCH (23:03)
[2021-01-20] MEDS: MONTELUKAST 5 MG CHEWABLE PEG/G-TUBE SCH (23:04)
[2021-01-21 03:35] LABS: Glucose,Whole Blood 115 mg/dL (75-99)
[2021-01-21] MEDS: INSULIN ASPART (NovoLOG) 100 UNIT/ML VIAL SQ SCH ×4 (03:40→18:03)
[2021-01-21] MEDS: SODIUM CHLORIDE 0.9% 1,000 ML IV SCH ×2 (03:41→18:04)
[2021-01-21 04:57] LABS: Anisocytosis Slight; Basophils % (A) 0 %; Eosinophils # (A) 0.2 k/uL (0-0.7); Eosinophils % (A) 3 %; HCT 27.9 % (34.0-46.0); HGB 9.2 gm/dL (11.4-16.0); Lymphocytes # (A) 1.2 k/uL (1.0-4.8); Lymphocytes % (A) 16 %; MCH 30.7 pg (25.0-35.0); MCV 93.2 fL (80.0-100.0); Mean Platelet Volume 8.6; Monocytes # (A) 0.3 k/uL (0-1.0); Monocytes % (A) 4 %; Neutrophils # (A) 5.9 k/uL (1.3-7.7); Neutrophils % (A) 76 %; Platelet Count 193 k/uL (150-450); RBC 2.99 m/uL (3.80-5.40); WBC 7.7 k/uL (3.8-10.6)
[2021-01-21 05:15] LABS: African American GFR (CKD) >90 (>60 ml/min/1.73 sqM); Anion Gap 3 mmol/L; Blood Urea Nitrogen 14 mg/dL (7-17); Calcium 8.5 mg/dL (8.4-10.2); Carbon Dioxide 26 mmol/L (22-30); Chloride 109 mmol/L (98-107); Glucose 102 mg/dL (74-99); Non-African American GFR(CKD) >90 (>60 ml/min/1.73 sqM); Potassium 3.7 mmol/L (3.5-5.1); Sodium 138 mmol/L (137-145)
[2021-01-21] MEDS: CEFEPIME 2 GM in SODIUM CHLORIDE 0.9% 100 ML IVPB SCH ×2 (06:36→12:35)
[2021-01-21 06:39] LABS: Glucose,Whole Blood 102 mg/dL (75-99)
[2021-01-21] MEDS ORDERED: POTASSIUM BICARBONATE/CIT AC 20 MEQ TABLET.EFF PO ONE (07:30)
[2021-01-21] MEDS: BUDESONIDE 0.25 MG/2 ML NEBU INHALATION SCH ×2 (08:40→19:46)
[2021-01-21] MEDS: FORMOTEROL FUMARATE 20 MCG/2 ML NEBU INHALATION SCH ×2 (08:40→19:49)
--- NOTE | 2021-01-21 09:04 | XR ---
EXAMINATION TYPE: XR chest 1V portable DATE OF EXAM: 01/21/2021 Comparison: 01/20/2021 Clinical History: 80-year-old female Hypoxemic Findings: The heart is upper limits of normal in size. Increasing airspace opacity throughout the left lung. Salazar spect small effusions. Diffuse interstitial densities persist. Impression: Persistent interstitial density and small bilateral pleural effusions. Developing airspace disease th roughout the left lung. Correlate for possible CHF with developing pulmonary edema versus pneumonia.
[2021-01-21] MEDS: levETIRAcetam 500 MG TAB PEG/G-TUBE SCH ×2 (09:35→20:46)
[2021-01-21] MEDS: ATORVASTATIN 10 MG TAB PEG/G-TUBE SCH (09:35)
[2021-01-21] MEDS: CHLORHEXIDINE GLUCONATE 15 ML CUP MUCOUS MEM SCH ×2 (09:35→20:47)
[2021-01-21] MEDS: APIXABAN 2.5 MG TABLET PEG/G-TUBE SCH ×2 (09:35→20:44)
[2021-01-21] MEDS: LEVOTHYROXINE IVP 100 MCG/5 ML VIAL IV SCH (09:36)
[2021-01-21] MEDS: VALPROIC ACID ORAL SOLN 250 MG/5 ML CUP PEG/G-TUBE SCH ×2 (09:36→20:43)
[2021-01-21] MEDS: risperiDONE 1 MG TAB PEG/G-TUBE SCH ×2 (09:36→20:44)
[2021-01-21] MEDS: predniSONE 5 MG TAB PEG/G-TUBE SCH (09:36)
[2021-01-21] MEDS: PANTOPRAZOLE 40 MG/10 ML VIAL IV SCH (09:42)
[2021-01-21 10:36] LABS: ABG Base Excess 3.8 mmol/L; ABG HCO3 29 mmol/L (21-25); ABG Oxygen Saturation 99.4 % (94-97); ABG PCO2 46 mmHg (35-45); ABG PH 7.41 (7.35-7.45); ABG PO2 144 mmHg (83-108); ABG TCO2 30 mmol/L (19-24); Allen Test Performed? Yes
--- NOTE | 2021-01-21 11:44 | P.PN ---
Subjective Progress Note Date: 01/21/21 Patient seen at bedside and per the patient ICU nurse she stated that no further seizure-like episodes. She stated that the patient the required BiPAP machine overnight since the patient was the setting and she is requiring the CPAP machine today Otherwise no neurological problems. Per the ICU nurse she stated that the patient the is felt to have pneumonia and has sputum cultures positive for Pseudomonas aeruginosa and the urine also was positive for Pseudomonas aeruginosa. Objective - Vital Signs Vital signs: Vital Signs Temp 96.8 F L 01/21/21 08:00 Pulse 71 01/21/21 11:00 Resp 19 01/21/21 11:00 BP 61/34 01/21/21 07:00 Pulse Ox 100 01/21/21 11:00 Intake & Output 01/20/21 01/21/21 01/21/21 18:59 06:59 18:59 Intake Total 1271 1463 370 Output Total 500 505 120 Balance 771 958 250 Weight 65 kg Intake: IV 936 903 150 Pressure Bag 36 3 Sodium Chloride 0.9% 1, 900 900 150 000 ml @ 75 mls/hr IV . [id number] [facility] Rx#:[id number] Intake, IV Titration 100 Amount Cefepime 2 gm In Sodium 100 Chloride 0.9% 100 ml @ 25 mls/hr IVPB Q8H [facility] Rx#: [id number] Tube Feeding 275 470 90 Other 60 90 30 Output: Urine 500 505 120 Other: Voiding Method Indwelling Catheter Indwelling Catheter ABP, PAP, CO, CI - Last Documented Arterial Blood Pressure 127/49 - Exam GENERAL: The patient is lying in bed and is not in acute distress. LUNG: Clear to auscultation bilaterally no wheezing noted throughout. Not labored breathing. she is on BiPAP machine. NEUROLOGICAL: Limited since on BiPAP Higher mental function: Drowsy but is awakeable to voice. She states her name appropriately. Followed few simple commands ( wiggling her toes and raising arms on command). Otherwise rest is limited. Cranial nerves: The pupils are round, equal and reactive to light (pupils are 3mm bilaterally). Primary gaze is midline. No facial weakness. Otherwise rest is limited because of her condition. Motor: Is wheel chair bound. The strength is limited because of her condition. She is moving upper extremities above gravity without drift. She is able to briefly squeeze and move the right hand antigravity. She is able to wiggle her toes bilaterally on command. Otherwise she has increase tone in upper and slight lower (per project landscape architect is baseline). Appear to have atrophy and slight decrease tone and bulk in bilateral wrist/hands. Cerebellum: Unable to assess. Sensation: Unable to assess. Reflexes (right/left): Biceps are 3+ bilaterally, ticeps are 1-2+ bilaterally. Otherwsie 1+ throughout. Plantars are mute bilaterally. WORK-UP: AST 54 ALTs 3480 slightly elevated that. Her creatinine is 0.52 which is within normal limits. Calcium is 9.6 which is considered within normal limits. Phosphorus 4.6 which is elevated and it's just borderline above normal limits. The Xyrem is 2.0 was considered within normal limits. TSH is 25 which is elevated and the free T4 is 2.34 Urinalysis is the leukocyte esterase is a large, urine white blood cells 22, urine bacteria is occasional. Valproic acid level is 92.0 which is considered within normal limits. CT of the head is reported as ventricular enlargement greater than cell colic enlargement favored to represent central greater than cortical cerebral volume loss. Normal pressure hydrocephalus considered less likely but is not excluded. Involutional and chronic small vessel ischemic changes. Patient last CT [place] [address] and a remote reported as no definite acute process. However finding which could correlate with a cli nical diagnosis of normal pressure hydrocephalus. I personally reviewed that too CT of the head and I feel the patient has a component of normal pressure hydrocephalus but the patient at this seems has had this for at least since 2019 from our imaging not sure how far back it goes. Routine EEG on 01/19/2021: Is abnormal. The back of slowing suggestive of mild encephalopathy. There are no focal slowing, epileptiform discharges or seizure in the EEG. Has sputum cultures positive for Pseudomonas aeruginosa and the urine also was positive for Pseudomonas aeruginosa - Labs CBC & Chem 7: 01/21/21 04:30 01/21/21 04:30 Labs: Abnormal Lab Results - Last 24 Hours (Table) 01/20/21 01/20/21 01/21/21 Range/Units 11:48 18:06 03:24 RBC (3.80-5.40) m/uL Hgb (11.4-16.0) gm/dL Hct (34.0-46.0) % RDW (11.5-15.5) % ABG pCO2 (35-45) mmHg ABG pO2 (83-108) mmHg ABG HCO3 (21-25) mmol/L ABG Total CO2 (19-24) mmol/L ABG O2 Saturation (94-97) % Chloride (98-107) mmol/L Creatinine (0.52-1.04) mg/dL Glucose (74-99) mg/dL POC Glucose (mg/dL) 74 L 101 H 115 H (75-99) mg/dL 01/21/21 01/21/21 01/21/21 Range/Units 04:30 04:30 06:38 RBC 2.99 L (3.80-5.40) m/uL Hgb 9.2 L (11.4-16.0) gm/dL Hct 27.9 L (34.0-46.0) % RDW 18.0 H (11.5-15.5) % ABG pCO2 (35-45) mmHg ABG pO2 (83-108) mmHg ABG HCO3 (21-25) mmol/L ABG Total CO2 (19-24) mmol/L ABG O2 Saturation (94-97) % Chloride 109 H (98-107) mmol/L Creatinine 0.32 L (0.52-1.04) mg/dL Glucose 102 H (74-99) mg/dL POC Glucose (mg/dL) 102 H (75-99) mg/dL 01/21/21 Range/Units 10:33 RBC (3.80-5.40) m/uL Hgb (11.4-16.0) gm/dL Hct (34.0-46.0) % RDW (11.5-15.5) % ABG pCO2 46 H (35-45) mmHg ABG pO2 144 H (83-108) mmHg ABG HCO3 29 H (21-25) mmol/L ABG Total CO2 30 H (19-24) mmol/L ABG O2 Saturation 99.4 H (94-97) % Chloride (98-107) mmol/L Creatinine (0.52-1.04) mg/dL Glucose (74-99) mg/dL POC Glucose (mg/dL) (75-99) mg/dL Microbiology - Last 24 Hours (Table) 01/18/21 19:38 Urine Culture - Final Urine,Voided Pseudomonas aeruginosa 01/18/21 21:25 Gram Stain - Final Sputum Sputum Culture - Final Pseudomonas aeruginosa 01/18/21 19:38 Blood Culture - Preliminary Blood No Growth after 48 hours 01/18/21 19:38 Blood Culture - Preliminary Blood No Growth after 48 hours Assessment and Plan Assessment: Clinical Status epilepticus. Underlying infection can provoke seizure (has UTI and pneumonia)--resolved. Altered mental status due to underlying UTI. Pneumonia (Pseudomonas aeruginosa) Acute UTI (Pseudomonas aeruginosa) Hypothermia on presentation (unsure exact cause but possibly can be due to UTI leading to ?sepsis) History of hypertension but the since this hospital admission the patient has been hypotensive Hypotensive History of epilepsy(since 2018) Radiographically appears Normal Pressure hydrocephalus (since at least 2019 from our imaging.) Wheel chair bound Mild hyponatremia (131--->134 History of atrial fibrillation on Eliquis Dyslipidemia Dysphagia status post PEG tube Plan: * Patient and is on the her home dose of Depakote 50 mg every 12 hours via PEG tube (antiepiletic drug) and on this admission added Keppra 500mg once every 12 hours via PEG tube (did not increase Depakote since her Depakote level are on the high normal side and to avoid toxic) * We'll defer the rest of the medical management to the ICU in the primary team. * Upon discharge the patient needs to follow-up with her neurologist (Nemesio Anaya) as an outpatient within 1-2 weeks. * Regarding this possible radiographic normal pressure hydrocephalus will defer management as outpatient with her neurologist. This was relayed to her caregiver. The plan is discussed with the ICU nurse. I updated the patient's caregiver (Hannah) via phone. There is no further neurological work-up. Please reconsult neurology if needed. Marcus Childers M.D. Neuro-hospital Time with Patient: Less than 30
[2021-01-21 12:19] LABS: Glucose,Whole Blood 138 mg/dL (75-99)
[2021-01-21] MEDS ORDERED: FUROSEMIDE 10 MG/ML 4 ML VIAL IV STA (13:57)
[2021-01-21] MEDS ORDERED: FUROSEMIDE 10 MG/ML 2 ML VIAL IV ONE (14:03)
--- NOTE | 2021-01-21 14:14 | P.PN ---
Subjective This is a pleasant 80 years old female with past medical history of dementia, atrial fibrillation, asthma, heart failure, GERD, hypertension, hyperlipidemia, mitral valve prolapse, seizure disorder, hypothyroidism, Parkinson disease, developmental delay which is mild, she is a affective disorder, chronic anemia, moderate aortic stenosis with preserved LV function at ejection fraction of 50- 55%, moderate pulmonary hypertension, left buttock wound, Patient was sent for possible seizure at home, patient was nonverbal upon arrival, she was hypothermic at 95.7, and 19.8, she was bradycardic at 43 to 50s, and hypotensive with blood pressure 83/68. Also patient was saturating 90% on room air however her oxygen saturation deteriorated and she needed to 15 L nonrebreather and eventually she got intubated in the emergency room On admission her CBC is unremarkable. Sodium is 131 on the low side, potassium normal, creatinine normal at 0.5. Liver enzymes are unremarkable, ProBNP is 351. TSH is elevated at 25.1 and free T4 is also elevated at 2.3. Urine analysis showing large leukocyte esterase and WBC elevated at 22. Valproic acid is 92 which is therapeutic. Coronavirus not detected. Chest x-ray: Left lower lobe infiltrate and atelectasis EKG showing sinus bradycardia at 47 with first-degree AV block, no significant ST-T changes. And QTC is 461. CT of the brain: No acute process. Ventricular enlargement with normal pressure hydrocephalus is considered less likely. Patient in the emergency room received ceftriaxone, several boluses of normal saline. Started on a propofol after intubation. Also with seizure control 01/20/2021 This morning patient was still intubated and on mechanical ventilation with pulmonary/critical care team on the case. He was undergoing EEG testing however no seizure-like activities were noted. Neurology were following the case closely and she was kept on Keppra and her Depakote. There was suspicion of hyperthyroidism upon admission, repeat TSH showing improvement down to 10 from 25 and free T4 also improved 2.3 down to 1.8 which is also within the reference ranges. However patient repeat urinalysis showing more possible infection with urine culture is growing gram-negative bacilli. Chest x-ray showing left lower lobe consolidation with sputum culture is growing gram-negative bacilli. Patient is a started on cefepime antibiotics and follow up the final culture results. Her blood pressure is 107/44. Hyperthermia is improved up to 96.2 and later on become more normal. Patient is On normal saline at 75 mL/h, IV levothyroxine 50 g, Obed was 2.5 mg 01/21/2021 Patient in the ICU today she got extubated yesterday however she needs BiPAP all night, today she was placed on nasal cannula but her saturation dropped to 80s. So she was placed back on BiPAP. Repeat chest x-ray showing possible pneumonia versus fluid she has normal cylinder and a 75 mL/h, one-time dose of Lasix 20 mg as provided. Patient follows simple commands but she still looks confused. Patient still has hyperthermia at 96.3 similar to yesterday. Pressure is better today 124/40. Patient sputum culture and sputum culture both came back positive for pseudomonas which is sensitive to cefepime, with no leukocytosis but she has hyperthermia. Her pro-calcitonin is negative. Because of this we will lower the dose of cefepime to 1 mg twice a day and he'll keep monitoring for now. Also she remains on levothyroxine IV for 50 g per day. Also she is on Eliquis 2.5 mg, prednisone 5 mg which is home dose. Neurologist on the case and patient to continue on Keppra 500 mg and valproic acid. Review of Systems: n/a Active Medications Generic Name Dose Route Start Last Admin Trade Name Freq PRN Reason Stop Dose Admin Apixaban 2.5 mg 01/19/21 20:00 01/21/21 09:35 Apixaban 2.5 Mg Tablet PEG/G-TUBE 2.5 mg BID@ DEANNA Administration Protocol Atorvastatin Calcium 10 mg 01/20/21 08:00 01/21/21 09:35 Atorvastatin 10 Mg Tab PEG/G-TUBE 10 mg DAILY@0800 DEANNA Administration Budesonide 0.25 mg 01/19/21 20:00 01/21/21 08:40 Budesonide 0.25 Mg/2 Ml Nebu INHALATION 0.25 mg RT-BID@ DEANNA Administration Chlorhexidine Gluconate 15 ml 01/19/21 09:00 01/21/21 09:35 Chlorhexidine Gluconate 15 Ml Cup MUCOUS MEM 15 ml BID DEANNA Administration Formoterol Fumarate 20 mcg 01/19/21 20:00 01/21/21 08:40 Formoterol Fumarate 20 Mcg/2 Ml Nebu INHALATION 20 mcg RT-BID@799,1999 DEANNA Administration Propofol 1,000 mg/ IV Solution 100 mls @ 0 mls/hr 01/18/21 21:00 01/19/21 09:00 IV 0 mcg/kg/min .Q0M DEANNA 0 mls/hr Titration Protocol Titrate Sodium Chloride 1,000 mls @ 75 mls/hr 01/18/21 21:45 01/21/21 03:41 Saline 0.9% IV 75 mls/hr .[id number] DEANNA Administration Cefepime HCl 1 gm/ Sodium 100 mls @ 25 mls/hr 01/21/21 14:15 Chloride IVPB Q12H DEANNA Insulin Aspart 0 unit 01/20/21 18:00 01/21/21 12:34 Insulin Aspart (Novolog) 100 Unit/Ml Vial SQ 1 unit Q6H DEANNA Administration Protocol Latanoprost 1 drops 01/19/21 20:00 01/20/21 23:03 Latanoprost 0.005% Ophth Drops 2.5 Ml Btl BOTH EYES 1 drops HS@1999 DEANNA Administration Levetiracetam 500 mg 01/19/21 11:45 01/21/21 09:35 Levetiracetam 500 Mg Tab PEG/G-TUBE 500 mg Q12HR DEANNA Administration Levothyroxine Sodium 50 mcg 01/22/21 06:00 Levothyroxine Ivp 100 Mcg/5 Ml Vial IV DAILY@0600 [facility] Miscellaneous Information 1 each 01/19/21 07:36 Potassium Replacement Protocol 1 Each Misc MISCELLANE DAILY PRN Per Protocol Protocol Miscellaneous Information 1 each 01/19/21 15:23 Potassium Replacement Protocol 1 Each Misc MISCELLANE DAILY PRN Per Protocol Protocol Montelukast Sodium 5 mg 01/19/21 20:00 01/20/21 23:04 Montelukast 5 Mg Chewable PEG/G-TUBE 5 mg HS@1999 DEANNA Administration Naloxone HCl 0.2 mg 01/18/21 21:40 Naloxone 0.4 Mg/Ml 1 Ml Vial IV Q2M PRN Opioid Reversal Pantoprazole Sodium 40 mg 01/19/21 09:00 01/21/21 09:42 Pantoprazole 40 Mg/10 Ml Vial IV 40 mg DAILY DEANNA Administration Prednisone 5 mg 01/20/21 08:00 01/21/21 09:36 Prednisone 5 Mg Tab PEG/G-TUBE 5 mg DAILY@0800 DEANNA Administration Risperidone 1 mg 01/19/21 20:00 01/21/21 09:36 Risperidone 1 Mg Tab PEG/G-TUBE 1 mg BID@799,1999 [facility] Administration Valproic Acid 500 mg 01/19/21 20:00 01/21/21 09:36 Valproic Acid Oral Soln 250 Mg/5 Ml Cup PEG/G-TUBE 500 mg BID@ DEANNA Administration Objective - Vital Signs Vital signs: Vital Signs Temp 96.9 F L 01/21/21 12:00 Pulse 71 01/21/21 12:00 Resp 25 H 01/21/21 12:00 BP 61/34 01/21/21 07:00 Pulse Ox 97 01/21/21 13:00 Intake & Output 01/20/21 01/21/21 01/21/21 18:59 06:59 18:59 Intake Total 1271 1463 869 Output Total 500 505 250 Balance 771 608 619 Weight 65 kg Intake: IV 936 903 484 Cefepime 2 gm In Sodium 100 Chloride 0.9% 100 ml @ 25 mls/hr IVPB Q12HR [facility] Rx #:[id number] Pressure Bag 36 3 9 Sodium Chloride 0.9% 1, 900 900 375 000 ml @ 75 mls/hr IV . [id number] [facility] Rx#:[id number] Intake, IV Titration 100 Amount Cefepime 2 gm In Sodium 100 Chloride 0.9% 100 ml @ 25 mls/hr IVPB Q8H [facility] Rx#: [id number] Tube Feeding 275 470 225 Other 60 90 60 Output: Urine 500 505 250 Other: Voiding Method Indwelling Catheter Indwelling Catheter ABP, PAP, CO, CI - Last Documented Arterial Blood Pressure 124/46 - Exam -GENERAL: The patient is intubated and sedated HEENT: Pupils are round and equally reacting to light. EOMI. No scleral icterus. No conjunctival pallor. Normocephalic, atraumatic. No pharyngeal erythema. No thyromegaly. CARDIOVASCULAR: S1 and S2 present. No murmurs, rubs, or gallops. PULMONARY: Chest is clear to auscultation, no wheezing or crackles. ABDOMEN: Soft, nontender, nondistended, normoactive bowel sounds. No palpable organomegaly. MUSCULOSKELETAL: No joint swelling or deformity. EXTREMITIES: No cyanosis, clubbing, or pedal edema. NEUROLOGICAL: Gross neurological examination did not reveal any focal deficits. SKIN: No rashes. No petechiae, exam is limited because patient clinical status for example intubation - Labs CBC & Chem 7: 01/21/21 04:30 01/21/21 04:30 Labs: Abnormal Lab Results - Last 24 Hours (Table) 01/20/21 01/21/21 01/21/21 Range/Units 18:06 03:24 04:30 RBC 2.99 L (3.80-5.40) m/uL Hgb 9.2 L (11.4-16.0) gm/dL Hct 27.9 L (34.0-46.0) % RDW 18.0 H (11.5-15.5) % ABG pCO2 (35-45) mmHg ABG pO2 (83-108) mmHg ABG HCO3 (21-25) mmol/L ABG Total CO2 (19-24) mmol/L ABG O2 Saturation (94-97) % Chloride (98-107) mmol/L Creatinine (0.52-1.04) mg/dL Glucose (74-99) mg/dL POC Glucose (mg/dL) 101 H 115 H (75-99) mg/dL 01/21/21 01/21/21 01/21/21 Range/Units 04:30 06:38 10:33 RBC (3.80-5.40) m/uL Hgb (11.4-16.0) gm/dL Hct (34.0-46.0) % RDW (11.5-15.5) % ABG pCO2 46 H (35-45) mmHg ABG pO2 144 H (83-108) mmHg ABG HCO3 29 H (21-25) mmol/L ABG Total CO2 30 H (19-24) mmol/L ABG O2 Saturation 99.4 H (94-97) % Chloride 109 H (98-107) mmol/L Creatinine 0.32 L (0.52-1.04) mg/dL Glucose 102 H (74-99) mg/dL POC Glucose (mg/dL) 102 H (75-99) mg/dL 01/21/21 Range/Units 12:18 RBC (3.80-5.40) m/uL Hgb (11.4-16.0) gm/dL Hct (34.0-46.0) % RDW (11.5-15.5) % ABG pCO2 (35-45) mmHg ABG pO2 (83-108) mmHg ABG HCO3 (21-25) mmol/L ABG Total CO2 (19-24) mmol/L ABG O2 Saturation (94-97) % Chloride (98-107) mmol/L Creatinine (0.52-1.04) mg/dL Glucose (74-99) mg/dL POC Glucose (mg/dL) 138 H (75-99) mg/dL Microbiology - Last 24 Hours (Table) 01/18/21 19:38 Urine Culture - Final Urine,Voided Pseudomonas aeruginosa 01/18/21 21:25 Gram Stain - Final Sputum Sputum Culture - Final Pseudomonas aeruginosa 01/18/21 19:38 Blood Culture - Preliminary Blood No Growth after 48 hours 01/18/21 19:38 Blood Culture - Preliminary Blood No Growth after 48 hours Assessment and Plan Assessment: Suspected breakthrough seizure Acute hypoxic respiratory failure, status post intubation Hypotension, improvement Acute urinary tract infection secondary to gram-negative bacilli Left lower lobe pneumonia secondary to gram-negative bacilli dementia History of atrial fibrillation History ofasthma History ofheart failure History ofGERD History ofhypertension History ofhyperlipidemia History ofmitral valve prolapse History ofseizure disorder History ofhypothyroidism History ofParkinson disease History ofdevelopmental delay which is mild History ofschizoaffective disorder History ofchronic anemia History ofmoderate aortic stenosis with preserved LV function at ejection fraction of 50-55% History ofmoderate pulmonary hypertension History of left buttock wound Plan: This is a pleasant 80 years old female who presents with seizure and respiratory failure status post intubation/extubation, currently kept on BiPAP Pulmonary/critical care consult, Neurology consult recommended Keppra continue with Depakote. Continue with iv thyroxine Continue cefepime although patient felt to have colonization of her sputum and urine her than infection or UTI. But we will keep the antibiotics for patient is hypothermic and lower dose to 1 g twice a day Wound team consult Labs and medication were reviewed.. Continue same treatment. Continue with symptomatic treatment. Resume home medication. Monitor lytes and vitals. DVT and GI prophylaxis. Further recommendations depends on the clinical course of the patient DVT prophylaxis: Subcutaneous heparin GI Prophylaxis: Ppi PT/OT: Pending Prognosis is guarded
[2021-01-21] MEDS ORDERED: CEFEPIME 1 GM in SODIUM CHLORIDE 0.9% 50 ML IVPB SCH (14:15)
[2021-01-21] MEDS ORDERED: CEFEPIME 1 GM in SODIUM CHLORIDE 0.9% 100 ML IVPB SCH (14:15)
--- NOTE | 2021-01-21 14:31 | P.PN ---
Subjective Progress Note Date: 01/21/21 This is a 80-year-old female patient, known to me from previous admissions, known to have multiple medical problems and comorbidities most significant a history of dementia along with schizophrenia with Parkinson's disease was been essentially bedridden and she has a 24-hour caregiver at home. Recently, the patient has developed a stage IV sacral decub ulcer and the patient was in the hospital yesterday for a debridement procedure that was done and the patient was discharged home. Discharge, the patient was noted to have seizure activity at home. Note that she has history of seizures and she has been maintained on Depakote on outpatient basis. She was given all of her medications with a caregiver without any interruption. Her seizure lasted for few minutes and the patient was postictal. Apparently she was having tonic-clonic activity as documented by the emergency department team. The patient in the emergency was evaluated. Mentation was altered. She was having twitching in her tongue and mouth area and it was suspected that she was having ongoing seizure activity. For that reason, the patient was started on propofol and the patient was intubated and placed on a mechanical ventilator for airway protection. Note that the patient apparently was having seizures in the past. She had to seizure activities back in October 2020. She sees a neurologist out of [facility]. She was seen by her neurologist recently and she has not skipped any of her Depakote doses. The patient was given a total of 1 mg Ativan in the emergency department. Her valproic acid level was at 92. The patient was seen by neurology today and the patient was given 1 g every 12 hours and the neurologist asked to continue the Depakote. CAT scan of the brain was done in the emergency department showed no acute abnormalities. No reported fever. No reported neck stiffness. No reported aspiration. The patient had a white cell count of 8.4 with a hemoglobin of 10.2. This morning, it out with this patient in intensive care unit. She was on a mechanical ventilator. She was an assist-control at the rate of 14 with tidal volume of 375 and FiO2 of 50% with a PEEP of 5. Blood gas showed a pH of 7.54 with a pCO2 of 34 and pO2 166. Chest patient was somewhat limited as the patient has significant Scoliosis of the thoracic spine. Nevertheless, there was no airspace disease or consolidation. ET tube was in a good location. The patient had no significant orotracheal secretions. The patient remains hemodynamically stable. She was given a total of 2 L of IV fluids in the emergency department and she did not require any pressors. Her cardiac rhythm was sinus all of the patient has history of atrial fibrillation and she is maintained on anticoagulation with Eliquis. She also has obstructive sleep apnea and this was severe with an AHI of 76 and she was placed on APAP on outpatient basis. There is a month her various other comorbidities. 01/20/2021 the patient is being seen in follow-up in the intensive care unit. The patient got extubated yesterday and currently she is on a BiPAP at a pressure of 10/5 cm of water with an FiO2 of 60%. She is arousable. She is generating tidal volumes in the 550 range with a respiratory rate of 20. The blood gases from today showed a pH of 7.37 with a pCO2 of 48 empiric of 103. She is calm and comfortable while being on a BiPAP. Note that the patient postextubation she was placed on a BiPAP knowing that she has also severe ob structive sleep apnea. Chest x-ray from today shows some residual atelectatic changes and left lower lobe. Otherwise no acute abnormalities have been noted. Overnight, no seizure activity has been noted. The patient is free of any seizures for now. A EEG was done yesterday that showed abnormal findings with slowing suggestive of some mild encephalopathy. Meanwhile, the patient remains on Keppra 500 mg twice a day through her PEG tube and she is also on valproic acid syrup. TSH is down to 10.1. Free T4 is at 1.84. Rest of the electrolytes all stable for now. She is arousable. Brunson cath is in place. IV fluids are running at the rate of 75 mL an hour. 01/21/2021, I'm seeing this patient for a follow-up. Postextubation, the patient did well initially and she was doing well on a BiPAP and the patient was also able to transition to oxygen by nasal cannula. Nevertheless, over the past 24 hours and specially over the past 12 hours, the patient's condition has gotten worse. Repeat chest x-ray from this morning is showing bilateral pulmonary infiltrates, patchy, involving the left upper lobe and the right lower lobe. Sputum cultures collected earlier glove turner to be positive for pseudomonas aeruginosa and the patient was started on IV cefepime. Currently she is on BiPAP at a pressure of 10/5 cm of water with an FiO2 of 50%. She is quite suggestive the BiPAP. Nevertheless, she does lethargic and she seems to be more lethargic compared to yesterday. She opens her eyes upon termination she is following only simple commands. Hemodynamically stable on no pressors. No seizure activity has been noted. She is receiving enteral feeding for nutritional support and the PEG tube is functional at this point in time. Her white cell count is at 7.7. Her blood gases was done and FiO2 of 60% while the patient being on a BiPAP at a pressure of 10/5 in the blood case with a pH of 7.41 with a pCO2 of 46 and a pO2 of 144. Her pro-calcitonin level is at 0.07. Note that pseudomonas aeruginosa was also cultured and the patient's urine. Objective - Vital Signs Vital signs: Vital Signs Temp 96.9 F L 01/21/21 12:00 Pulse 71 01/21/21 12:00 Resp 25 H 01/21/21 12:00 BP 61/34 01/21/21 07:00 Pulse Ox 97 01/21/21 13:00 Intake & Output 01/20/21 01/21/21 01/21/21 18:59 06:59 18:59 Intake Total 1271 1463 869 Output Total 500 505 250 Balance 771 958 619 Weight 65 kg Intake: IV 936 903 484 Cefepime 2 gm In Sodium 100 Chloride 0.9% 100 ml @ 25 mls/hr IVPB Q12HR DEANNA Rx #:[id number] Pressure Bag 36 3 9 Sodium Chloride 0.9% 1, 900 900 375 000 ml @ 75 mls/hr IV . [id number] DEANNA Rx#:[id number] Intake, IV Titration 100 Amount Cefepime 2 gm In Sodium 100 Chloride 0.9% 100 ml @ 25 mls/hr IVPB Q8H DEANNA Rx#: [id number] Tube Feeding 275 470 225 Other 60 90 60 Output: Urine 500 505 250 Other: Voiding Method Indwelling Catheter Indwelling Catheter ABP, PAP, CO, CI - Last Documented Arterial Blood Pressure 124/46 - Exam Calm and comfortable, the patient is resting comfortably on a BiPAP. She is arousable. She'll be given a break off the BiPAP for now. The patient is lethargic. Slightly more sleepy compared to yesterday although she is arousable. Head exam was generally normal. There was no scleral icterus or corneal arcus. Mucous membranes were moist. Neck was supple and without jugular venous distension, thyromegaly, or carotid bruits. Carotids were easily palpable bilaterally. There was no adenopathy. Deangelo gastric and aortic tube are both in place. Lungs are diminished and the patient is on obvious thoracic and thoracolumbar kyphoscoliosis with cervical kyphosis. Rest of the equal and symmetrical. No wheezes or rhonchi. Cardiac exam revealed the PMI to be normally situated and sized. The rhythm was regular and no extrasystoles were noted during several minutes of auscultation. The first and second heart sounds were normal and physiologic splitting of the second heart sound was noted. There were systolic ejection murmur consistent with aortic stenosis , rubs, clicks, or gallops. Abdominal exam revealed normal bowel sounds. The abdomen was soft, non-tender, and without masses, organomegaly, or appreciable enlargement of the abdominal aorta. The patient is a PEG tube in place and the PEG tube site is dry clean and intact and there is no direct tenderness or rebound tensile guarding. Bowel sounds are hypoactive at the present Examination of the extremities revealed easily palpable radial, femoral and pedal pulses. There was no cyanosis, clubbing or edema. Examination of the skin revealed no evidence of significant rashes, suspicious appearing nevi or other concerning lesions. 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 Neurologically the patient is following some simple commands. No focal neurological deficit. She is currently off propofol. - Labs CBC & Chem 7: 01/21/21 04:30 01/21/21 04:30 Labs: Abnormal Lab Results - Last 24 Hours (Table) 01/20/21 01/21/21 01/21/21 Range/Units 18:06 03:24 04:30 RBC 2.99 L (3.80-5.40) m/uL Hgb 9.2 L (11.4-16.0) gm/dL Hct 27.9 L (34.0-46.0) % RDW 18.0 H (11.5-15.5) % ABG pCO2 (35-45) mmHg ABG pO2 (83-108) mmHg ABG HCO3 (21-25) mmol/L ABG Total CO2 (19-24) mmol/L ABG O2 Saturation (94-97) % Chloride (98-107) mmol/L Creatinine (0.52-1.04) mg/dL Glucose (74-99) mg/dL POC Glucose (mg/dL) 101 H 115 H (75-99) mg/dL 01/21/21 01/21/21 01/21/21 Range/Units 04:30 06:38 10:33 RBC (3.80-5.40) m/uL Hgb (11.4-16.0) gm/dL Hct (34.0-46.0) % RDW (11.5-15.5) % ABG pCO2 46 H (35-45) mmHg ABG pO2 144 H (83-108) mmHg ABG HCO3 29 H (21-25) mmol/L ABG Total CO2 30 H (19-24) mmol/L ABG O2 Saturation 99.4 H (94-97) % Chloride 109 H (98-107) mmol/L Creatinine 0.32 L (0.52-1.04) mg/dL Glucose 102 H (74-99) mg/dL POC Glucose (mg/dL) 102 H (75-99) mg/dL 01/21/21 Range/Units 12:18 RBC (3.80-5.40) m/uL Hgb (11.4-16.0) gm/dL Hct (34.0-46.0) % RDW (11.5-15.5) % ABG pCO2 (35-45) mmHg ABG pO2 (83-108) mmHg ABG HCO3 (21-25) mmol/L ABG Total CO2 (19-24) mmol/L ABG O2 Saturation (94-97) % Chloride (98-107) mmol/L Creatinine (0.52-1.04) mg/dL Glucose (74-99) mg/dL POC Glucose (mg/dL) 138 H (75-99) mg/dL Microbiology - Last 24 Hours (Table) 01/18/21 19:38 Urine Culture - Final Urine,Voided Pseudomonas aeruginosa 01/18/21 21:25 Gram Stain - Final Sputum Sputum Culture - Final Pseudomonas aeruginosa 01/18/21 19:38 Blood Culture - Preliminary Blood No Growth after 48 hours 01/18/21 19:38 Blood Culture - Preliminary Blood No Growth after 48 hours Assessment and Plan Plan: 1 altered mentation secondary to breakthrough seizure and the patient with known history of epilepsy was maintained on Depakote on outpatient basis. The patient is currently free of any seizures maintained on a combination of Keppra and valproic acid. 2 acute bilateral pneumonia, consider hospital-acquired pneumonia with pseudomonas aeruginosa. Initial chest x-ray was clear during the current hospitalization and post extubation the patient developed bilateral consolida tion consistent with pseudomonal pneumonia and the patient is currently on IV cefepime. 3 acute hypoxic respiratory failure. The patient recovered from respiratory failure initially the patient was extubated successfully. Subsequently she developed bilateral pneumonia secondary to pseudomonas aeruginosa and currently on BiPAP at pressure of 10/5 and FiO2 of 50%. Blood gases was noted and the p atient is currently on IV cefepime. 4 dementia 5 Parkinson's disease, mild developmental delay 6 schizoaffective disorder 7 history of epilepsy 8 history of moderate degree of aortic stenosis and the patient has an obvious cardiac murmur on examination. Based on previous echocardiogram, ejection fraction was around 50-55% and the patient has moderate degree of pulmonary hypertension 9 stage IV left buttocks ulcers post-debridement without evidence of any acute infection. 10 esophageal stricture and the patient has a PEG tube in place for enteral feeding and nutritional support 11 abnormal gait due to our concern is and then dementia and the patient is wheelchair-bound and the patient has a caregiver at all 24 7 12 history approximately atrial fibrillation current rhythm is sinus 13 hypertension 14 hyperlipidemia 15 previous history of pneumonia and respiratory failure requiring prolonged hospitalization mechanical ventilation 16 history of recurrent UTIs, urine cultures is indicating Pseudomonas in her jaws and the patient is currently on IV cefepime.17 hypothyroidism 18 obstructive sleep apnea with an AHI of 78 maintained on a Pap on outpatient basis Plan Continue BiPAP for respiratory support pressures over 5 with an FiO2 of 50% IV cefepime 2 g every 12 hours regarding pseudomonal pneumonia and UTI Blood gases was noted in the FiO2 has been weaned down to 50% Continue enteral feeding for nutritional support Continue with IV fluids and the patient is currently on 0.9 at 75 mL an hour Continue Depakote/ Keppra for seizure control Continue anti- coagulation with Eliquis Continue bronchodilators Continue thyroid hormone replacement continue enteral feeding for nutritional support via PEG tube We'll continue to follow make further recommendations based on progress. CODE STATUS remains full and may need to be reintubated should she develop fu rther respiratory decompensation. CODE STATUS is full and the patient may need to be reintubated if the condition gets decompensated. Continue IV cefepime and repeat chest x-ray in the morning. We'll continue to follow.
[2021-01-21 18:04] LABS: Glucose,Whole Blood 125 mg/dL (75-99)
[2021-01-21] MEDS: MONTELUKAST 5 MG CHEWABLE PEG/G-TUBE SCH (20:43)
[2021-01-21] MEDS: LATANOPROST 0.005% OPHTH DROPS 2.5 ML BTL BOTH EYES SCH (20:44)
[2021-01-22] MEDS: CEFEPIME 1 GM in SODIUM CHLORIDE 0.9% 50 ML IVPB SCH ×2 (00:45→11:17)
[2021-01-22 01:01] LABS: Glucose,Whole Blood 120 mg/dL (75-99)
[2021-01-22] MEDS: INSULIN ASPART (NovoLOG) 100 UNIT/ML VIAL SQ SCH ×4 (01:03→21:04)
[2021-01-22 05:17] LABS: Glucose,Whole Blood 105 mg/dL (75-99)
[2021-01-22 05:36] LABS: Anisocytosis Slight; Basophils % (A) 0 %; Eosinophils # (A) 0.2 k/uL (0-0.7); Eosinophils % (A) 3 %; HCT 28.1 % (34.0-46.0); HGB 9.5 gm/dL (11.4-16.0); Lymphocytes # (A) 1.1 k/uL (1.0-4.8); Lymphocytes % (A) 13 %; MCH 30.8 pg (25.0-35.0); MCHC 33.8 g/dL (31.0-37.0); Mean Platelet Volume 8.6; Monocytes # (A) 0.4 k/uL (0-1.0); Monocytes % (A) 4 %; Neutrophils # (A) 6.5 k/uL (1.3-7.7); Neutrophils % (A) 79 %; Platelet Count 191 k/uL (150-450); RBC 3.09 m/uL (3.80-5.40); RDW 17.3 % (11.5-15.5); WBC 8.2 k/uL (3.8-10.6)
[2021-01-22 05:48] LABS: African American GFR (CKD) >90 (>60 ml/min/1.73 sqM); Anion Gap 3 mmol/L; Blood Urea Nitrogen 15 mg/dL (7-17); Calcium 8.8 mg/dL (8.4-10.2); Carbon Dioxide 30 mmol/L (22-30); Chloride 105 mmol/L (98-107); Glucose 104 mg/dL (74-99); Non-African American GFR(CKD) >90 (>60 ml/min/1.73 sqM); Sodium 138 mmol/L (137-145)
--- NOTE | 2021-01-22 07:02 | XR ---
EXAMINATION TYPE: XR chest 1V portable DATE OF EXAM: 01/22/2021 CLINICAL HISTORY: Difficulty breathing and hypoxia progress study. TECHNIQUE: Single AP portable supine view of the chest is obtained. COMPARISON: Chest x-ray from one day earlier and older studies. FINDINGS: Chronic parenchymal changes with persistent left basilar and left midlung passageways. Inc reased overall opacities bilaterally on current study may be product of changed technique. Current st udy slightly more suboptimal due to overlying chin artifact. Cardiac silhouette size is stable and mi ldly enlarged. Multilevel spurring in thoracic spine. Underlying scoliotic curvature positioning. IMPRESSION: Increased bilateral opacities could reflect product of change in technique or suspected l ayering small bilateral pleural effusions. Persistent mild cardiomegaly with left suprahilar and basi lar organizing consolidations. New right hilar and basilar focal acute infiltrates suspected. Progres s study advised.
[2021-01-22] MEDS ORDERED: FUROSEMIDE 10 MG/ML 4 ML VIAL IV STA ×2 (08:00→12:15)
[2021-01-22] MEDS: SODIUM CHLORIDE 0.9% 1,000 ML IV SCH (08:02)
[2021-01-22] MEDS: LEVOTHYROXINE IVP 100 MCG/5 ML VIAL IV SCH (08:14)
[2021-01-22] MEDS: PANTOPRAZOLE 40 MG/10 ML VIAL IV SCH (08:15)
[2021-01-22] MEDS: APIXABAN 2.5 MG TABLET PEG/G-TUBE SCH ×2 (08:20→21:02)
[2021-01-22] MEDS: VALPROIC ACID ORAL SOLN 250 MG/5 ML CUP PEG/G-TUBE SCH ×2 (08:20→21:03)
[2021-01-22] MEDS: levETIRAcetam 500 MG TAB PEG/G-TUBE SCH ×2 (08:20→21:03)
[2021-01-22] MEDS: ATORVASTATIN 10 MG TAB PEG/G-TUBE SCH (08:21)
[2021-01-22] MEDS: CHLORHEXIDINE GLUCONATE 15 ML CUP MUCOUS MEM SCH (08:21)
[2021-01-22] MEDS: predniSONE 5 MG TAB PEG/G-TUBE SCH (08:21)
[2021-01-22] MEDS: risperiDONE 1 MG TAB PEG/G-TUBE SCH ×2 (08:21→21:03)
[2021-01-22] MEDS: BUDESONIDE 0.25 MG/2 ML NEBU INHALATION SCH ×2 (08:23→19:46)
[2021-01-22] MEDS: FORMOTEROL FUMARATE 20 MCG/2 ML NEBU INHALATION SCH ×2 (08:23→19:46)
[2021-01-22 11:14] LABS: Glucose,Whole Blood 106 mg/dL (75-99)
--- NOTE | 2021-01-22 17:11 | P.PN ---
Subjective Progress Note Date: 01/22/21 Principal diagnosis: Altered mental status, due to breakthrough seizure, acute bilateral pneumonia This is a 80-year-old female patient, known to me from previous admissions, caleb contreras to have multiple medical problems and comorbidities most significant a history of dementia along with schizophrenia with Parkinson's disease was been essentially bedridden and she has a 24-hour caregiver at home. Recently, the patient has developed a stage IV sacral decub ulcer and the patient was in the hospital yesterday for a debridement procedure that was done and the patient was discharged home. Discharge, the patient was noted to have seizure activity at home. Note that she has history of seizures and she has been maintained on Depakote on outpatient basis. She was given all of her medications with a caregiver without any interruption. Her seizure lasted for few minutes and the patient was postictal. Apparently she was having tonic-clonic activity as documented by the emergency department team. The patient in the emergency was evaluated. Mentation was altered. She was having twitching in her tongue and mouth area and it was suspected that she was having ongoing seizure activity. For that reason, the patient was started on propofol and the patient was intubated and p laced on a mechanical ventilator for airway protection. Note that the patient apparently was having seizures in the past. She had to seizure activities back in October 2020. She sees a neurologist out of [facility]. She was seen by her neurologist recently and she has not skipped any of her Depakote doses. The patient was given a total of 1 mg Ativan in the emergency department. Her valproic acid level was at 92. The patient was seen by neurology today and the patient was given 1 g every 12 hours and the neurologist asked to continue the Depakote. CAT scan of the brain was done in the emergency department showed no acute abnormalities. No reported fever. No reported neck stiffness. No reported aspiration. The patient had a white cell count of 8.4 with a hemoglobin of 10.2. This morning, it out with this patient in intensive care unit. She was on a mechanical ventilator. She was an assist-control at the rate of 14 with tidal volume of 375 and FiO2 of 50% with a PEEP of 5. Blood gas showed a pH of 7.54 with a pCO2 of 34 and pO2 166. Chest patient was somewhat limited as the patient has significant Scoliosis of the thoracic spine. Nevertheless, there was no airspace disease or consolidation. ET tube was in a good location. The patient had no significant orotracheal secretions. The patient remains hemodynamically stable. She was given a total of 2 L of IV fluids in the emergency department and she did not require any pressors. Her cardiac rhythm was sinus all of the patient has history of atrial fibrillation and she is maintained on anticoagulation with Eliquis. She also has obstructive sleep apnea and this was severe with an AHI of 76 and she was placed on APAP on outpatient basis. There is a month her various other comorbidities. 01/20/2021 the patient is being seen in follow-up in the intensive care unit. The patient got extubated yesterday and currently she is on a BiPAP at a pressure of 10/5 cm of water with an FiO2 of 60%. She is arousable. She is generating tidal volumes in the 550 range with a respiratory rate of 20. The blood gases from today showed a pH of 7.37 with a pCO2 of 48 empiric of 103. She is calm and comfortable while being on a BiPAP. Note that the patient postextubation she was placed on a BiPAP knowing that she has also severe obstructive sleep apnea. Chest x-ray from today shows some residual atelectatic changes and left lower lobe. Otherwise no acute abnormalities have been noted. Overnight, no seizure activity has been noted. The patient is free of any seizures for now. A EEG was done yesterday that showed abnormal findings with slowing suggestive of some mild encephalopathy. Meanwhile, the patient remains on Keppra 500 mg twice a day through her PEG tube and she is also on valproic ac id syrup. TSH is down to 10.1. Free T4 is at 1.84. Rest of the electrolytes all stable for now. She is arousable. Brunson cath is in place. IV fluids are running at the rate of 75 mL an hour. 01/21/2021, I'm seeing this patient for a follow-up. Postextubation, the patient did well initially and she was doing well on a BiPAP and the patient was also able to transition to oxygen by nasal cannula. Nevertheless, over the past 24 hours and specially over the past 12 hours, the patient's condition has gotten worse. Repeat chest x-ray from this morning is showing bilateral pulmonary infiltrates, patchy, involving the left upper lobe and the right lower lobe. Sputum cultures collected earlier machine turner to be positive for pseudomonas aeruginosa and the patient was started on IV cefepime. Currently she is on BiPAP at a pressure of 10/5 cm of water with an FiO2 of 50%. She is quite suggestive the BiPAP. Nevertheless, she does lethargic and she seems to be more lethargic compared to yesterday. She opens her eyes upon termination she is following only simple commands. Hemodynamically stable on no pressors. No seizure activity has been noted. She is receiving enteral feeding for n utritional support and the PEG tube is functional at this point in time. Her white cell count is at 7.7. Her blood gases was done and FiO2 of 60% while the patient being on a BiPAP at a pressure of 10/5 in the blood case with a pH of 7.41 with a pCO2 of 46 and a pO2 of 144. Her pro-calcitonin level is at 0.07. Note that pseudomonas aeruginosa was also cultured and the patient's urine. On 01/22/2021 patient seen in follow-up in the intensive care unit, she is still lethargic, appears to be no acute distress, she is still on BiPAP support with pressures of 10/5 and FiO2 of 60%. Her pulse ox is around 93-95%, she is afebrile, her breathing is a bit more labored today, she had a chest x-ray completed today which showed worsening bilateral infiltrates with the possibility of a layering pleural effusion. She was given a dose of IV Lasix this morning 40 mg IV push and she is diuresing profusely, her oxygenation had since improved from 88% to 93% on FiO2 of 60%. Patient seems to be responding nicely to IV Lasix and she has been given an additional dose of 40 of Lasix this afternoon. She remains on cefepime for antibiotic coverage, her sputum and urine cultures were both positive for pseudomonas aeruginosa. Afebrile overnight, not requiring any vasopressor support. She is on 0.9 normal saline at a rate of 20 ML per hour. He slept 7 reviewed, her white count is 8.2, hemoglobin is 9.5, electrolytes are within normal limits, BUN is 50 creatinine 0.36. Patient is tolerating tube feedings, she is receiving vital AF at 45 with a goal of 45 and standard water flushes. Objective - Vital Signs Vital signs: Vital Signs Temp 98.1 F 01/22/21 16:00 Pulse 85 01/22/21 16:00 Resp 24 01/22/21 16:00 BP 61/34 01/22/21 07:00 Pulse Ox 93 L 01/22/21 16:00 Intake & Output 01/21/21 01/22/21 01/22/21 18:59 06:59 18:59 Intake Total 1637 1366 690 Output Total 5861 908 9662 Balance 480 441 -2560 Weight 71.2 kg 71.2 kg Intake: IV 952 636 180 Cefepime 2 gm In Sodium 100 Chloride 0.9% 100 ml @ 25 mls/hr IVPB Q12HR DEANNA Rx #:[id number] Pressure Bag 27 36 30 Sodium Chloride 0.9% 1, 825 600 150 000 ml @ 75 mls/hr IV . [id number] DEANNA Rx#:[id number] Intake, IV Titration 100 100 Amount Cefepime 1 gm In Sodium 100 Chloride 0.9% 50 ml @ 12. 5 mls/hr IVPB Q12H DEANNA Rx #:[id number] Cefepime 2 gm In Sodium 100 Chloride 0.9% 100 ml @ 25 mls/hr IVPB Q8H DEANNA Rx#: [id number] Tube Feeding 495 540 450 Other 90 90 60 Output: Urine 9975 313 8583 Other: Voiding Method Indwelling Catheter Indwelling Catheter Indwelling Catheter ABP, PAP, CO, CI - Last Documented Arterial Blood Pressure 118/45 - Exam Calm and comfortable, the patient is resting comfortably on a BiPAP. She is arousable. She is lethargic, she is currently on BiPAP support blood pressures tend and 5 and FiO2 of 60%. The patient is lethargic. Slightly more sleepy compared to yesterday although she is arousable. Head exam was generally normal. There was no scleral icterus or corneal arcus. Mucous membranes were moist. Neck was supple and without jugular venous distension, thyromegaly, or carotid bruits. Carotids were easily palpable bilaterally. There was no adenopathy. Orogastric and aortic tube are both in place. Lungs are diminished and the patient is on obvious thoracic and thoracolumbar kyphoscoliosis with cervical kyphosis. Rest of the equal and symmetrical. No wheezes or rhonchi. Cardiac exam revealed the PMI to be normally situated and sized. The rhythm was regular and no extrasystoles were noted during several minutes of auscultation. The first and second heart sounds were normal and physiologic splitting of the second heart sound was noted. There were systolic ejection murmur consistent with aortic stenosis , rubs, clicks, or gallops. Abdominal exam revealed normal bowel sounds. The abdomen was soft, non-tender, and without masses, organomegaly, or appreciable enlargement of the abdominal aorta. The patient is a PEG tube in place and the PEG tube site is dry clean and intact and there is no direct tenderness or rebound tensile guarding. Bowel sounds are hypoactive at the present Examination of the extremities revealed easily palpable radial, femoral and pedal pulses. There was no cyanosis, clubbing or edema. Examination of the skin revealed no evidence of significant rashes, suspicious appearing nevi or other concerning lesions. 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 Neurologically the patient is following some simple commands. No focal tom rological deficit. She is currently off propofol. - Labs CBC & Chem 7: 01/22/21 05:15 01/22/21 05:15 Labs: Abnormal Lab Results - Last 24 Hours (Table) 01/21/21 01/22/21 01/22/21 Range/Units 18:03 00:48 05:13 RBC (3.80-5.40) m/uL Hgb (11.4-16.0) gm/dL Hct (34.0-46.0) % RDW (11.5-15.5) % Creatinine (0.52-1.04) mg/dL Glucose (74-99) mg/dL POC Glucose (mg/dL) 125 H 120 H 105 H (75-99) mg/dL 01/22/21 01/22/21 01/22/21 Range/Units 05:15 05:15 11:12 RBC 3.09 L (3.80-5.40) m/uL Hgb 9.5 L (11.4-16.0) gm/dL Hct 28.1 L (34.0-46.0) % RDW 17.3 H (11.5-15.5) % Creatinine 0.36 L (0.52-1.04) mg/dL Glucose 104 H (74-99) mg/dL POC Glucose (mg/dL) 106 H (75-99) mg/dL Microbiology - Last 24 Hours (Table) 01/18/21 19:38 Blood Culture - Preliminary Blood No Growth after 72 hours 01/18/21 19:38 Blood Culture - Preliminary Blood No Growth after 72 hours Assessment and Plan Plan: 1 altered mentation secondary to breakthrough seizure and the patient with known history of epilepsy was maintained on Depakote on outpatient basis. The patient is currently free of any seizures maintained on a combination of Keppra and valproic acid. 2 acute bilateral pneumonia, consider hospital-acquired pneumonia with pseudomonas aeruginosa. Initial chest x-ray was clear during the current hospitalization and post extubation the patient developed bilateral consolidation consistent with pseudomonal pneumonia and the patient is currently on IV cefepime. 3 acute hypoxic respiratory failure. The patient recovered from respiratory failure initially the patient was extubated successfully. Subsequently she developed bilateral pneumonia secondary to pseudomonas aeruginosa and currently on BiPAP at pressure of 10/5 and FiO2 of 50%. Blood gases was noted and the patient is currently on IV cefepime. 4 dementia 5 Parkinson's disease, mild developmental delay 6 schizoaffective disorder 7 history of epilepsy 8 history of moderate degree of aortic stenosis and the patient has an obvious cardiac murmur on examination. Based on previous echocardiogram, ejection fraction was around 50-55% and the patient has moderate degree of pulmonary hypertension 9 stage IV left buttocks ulcers post-debridement without evidence of any acute infection. 10 esophageal stricture and the patient has a PEG tube in place for enteral feeding and nutritional support 11 abnormal gait due to our concern is and then dementia and the patient is wheelchair-bound and the patient has a caregiver at all 24 7 12 history approximately atrial fibrillation current rhythm is sinus 13 hypertension 14 hyperlipidemia 15 previous history of pneumonia and respiratory failure requiring prolonged hospitalization mechanical ventilation 16 history of recurrent UTIs, urine cultures is indicating Pseudomonas in her jaws and the patient is currently on IV cefepime.17 hypothyroidism 18 obstructive sleep apnea with an AHI of 78 maintained on a Pap on outpatient basis Plan: Continue BiPAP support Patient responded to diuretics quite nicely this morning We will give additional dose of 40 of Lasix Continue cefepime Continue Depakote and Keppra for seizure control Continue bronchodilators Continue PEG tube feedings Follow-up chest x-ray tomorrow Follow-up labs electrolytes and renal profile Maintain aspiration precautions Overall prognosis guarded I performed a history & physical examination of the patient and discussed their management with my nurse practitioner, Elsy De Guzman. I reviewed the nurse practitioner's note and agree with the documented findings and plan of care. Lung sounds are positive for diffuse wheezes throughout the lung huynh. The findings and the impression was discussed with the patient. I attest to the documentation by the nurse practitioner. Time with Patient: Greater than 30
[2021-01-22 18:18] LABS: Glucose,Whole Blood 125 mg/dL (75-99)
[2021-01-22] MEDS: MONTELUKAST 5 MG CHEWABLE PEG/G-TUBE SCH (21:03)
[2021-01-22] MEDS: LATANOPROST 0.005% OPHTH DROPS 2.5 ML BTL BOTH EYES SCH (21:04)
[2021-01-22] MEDS ORDERED: CEFEPIME 2 GM in SODIUM CHLORIDE 0.9% 100 ML IVPB SCH (23:00)
[2021-01-22] MEDS: CEFEPIME 2 GM in SODIUM CHLORIDE 0.9% 100 ML IVPB SCH (23:47)
[2021-01-23] MEDS: INSULIN ASPART (NovoLOG) 100 UNIT/ML VIAL SQ SCH ×5 (04:18→23:33)
[2021-01-23 05:12] LABS: Glucose,Whole Blood 114 mg/dL (75-99)
[2021-01-23 05:36] LABS: Anisocytosis Slight; Basophils % (A) 0 %; Eosinophils # (A) 0.3 k/uL (0-0.7); Eosinophils % (A) 4 %; HCT 27.7 % (34.0-46.0); HGB 9.4 gm/dL (11.4-16.0); Lymphocytes # (A) 1.1 k/uL (1.0-4.8); Lymphocytes % (A) 16 %; MCH 31.1 pg (25.0-35.0); MCV 91.3 fL (80.0-100.0); Mean Platelet Volume 8.5; Monocytes # (A) 0.4 k/uL (0-1.0); Monocytes % (A) 6 %; Neutrophils # (A) 5.1 k/uL (1.3-7.7); Neutrophils % (A) 73 %; Platelet Count 190 k/uL (150-450); RBC 3.04 m/uL (3.80-5.40); RDW 17.3 % (11.5-15.5)
[2021-01-23 06:03] LABS: ALT 21 U/L (4-34); AST 29 U/L (14-36); African American GFR (CKD) >90 (>60 ml/min/1.73 sqM); Albumin 2.6 g/dL (3.5-5.0); Alkaline Phosphatase 105 U/L (38-126); Anion Gap 5 mmol/L; Blood Urea Nitrogen 20 mg/dL (7-17); Calcium 8.7 mg/dL (8.4-10.2); Carbon Dioxide 34 mmol/L (22-30); Chloride 98 mmol/L (98-107); Glucose 112 mg/dL (74-99); Non-African American GFR(CKD) >90 (>60 ml/min/1.73 sqM); Potassium 3.3 mmol/L (3.5-5.1); Sodium 137 mmol/L (137-145); Total Bilirubin 0.1 mg/dL (0.2-1.3)
[2021-01-23] MEDS: CEFEPIME 2 GM in SODIUM CHLORIDE 0.9% 100 ML IVPB SCH ×3 (06:21→22:46)
[2021-01-23] MEDS: LEVOTHYROXINE IVP 100 MCG/5 ML VIAL IV SCH (06:21)
[2021-01-23] MEDS: POTASSIUM BICARBONATE/CIT AC 20 MEQ TABLET.EFF NG-TUBE SCH ×2 (06:30→07:00)
[2021-01-23] MEDS: FORMOTEROL FUMARATE 20 MCG/2 ML NEBU INHALATION SCH ×2 (08:13→20:23)
[2021-01-23] MEDS: BUDESONIDE 0.25 MG/2 ML NEBU INHALATION SCH ×2 (08:13→20:23)
--- NOTE | 2021-01-23 08:23 | XR ---
EXAMINATION TYPE: XR chest 1V portable DATE OF EXAM: 01/23/2021 HISTORY: Shortness of breath. COMPARISON: 01/22/2021 TECHNIQUE: Single view of the chest is submitted. FINDINGS: Demonstrated are scattered senescent parenchymal change. Patchy infiltrates throughout both lung huynh as well as pleural effusions persist. Current study is limited by patient rotation. The heart is stable. Hilar and mediastinal structures are within normal limits. Degenerative changes are seen of the dorsal spine. IMPRESSION: 1. Patchy infiltrates throughout both lung huynh as well as pleural effusions persist. Current stud y is limited by patient rotation.
[2021-01-23] MEDS ORDERED: FUROSEMIDE 10 MG/ML 4 ML VIAL IV STA ×2 (08:55→16:03)
--- NOTE | 2021-01-23 09:00 | P.PN ---
Subjective Progress Note Date: 01/23/21 Altered mental status, due to breakthrough seizure, acute bilateral pneumonia This is a 80-year-old female patient, known to me from previous admissions, known to have multiple medical problems and comorbidities most significant a history of dementia along with schizophrenia with Parkinson's disease was been essentially bedridden and she has a 24-hour caregiver at home. Recently, the patient has developed a stage IV sacral decub ulcer and the patient was in the hospital yesterday for a debridement procedure that was done and the patient was discharged home. Discharge, the patient was noted to have seizure activity at home. Note that she has history of seizures and she has been maintained on Depakote on outpatient basis. She was given all of her medications with a caregiver without any interruption. Her seizure lasted for few minutes and the patient was postictal. Apparently she was having tonic-clonic activity as documented by the emergency department team. The patient in the emergency was evaluated. Mentation was altered. She was having twitching in her tongue and mouth area and it was suspected that she was having ongoing seizure activity. For that reason, the patient was started on propofol and the patient was intubated and placed on a mechanical ventilator for airway protection. Note that the patient apparently was having seizures in the past. She had to seizure activities back in October 2020. She sees a neurologist out of [facility]. She was seen by her neurologist recently and she has not skipped any of her Depakote doses. The patient was given a total of 1 mg Ativan in the emergency department. Her valproic acid level was at 92. The patient was seen by neurology today and the patient was given 1 g every 12 hours and the neurologist asked to continue the Depakote. CAT scan of the brain was done in the emergency department showed no acute abnormalities. No reported fever. No reported neck stiffness. No reported aspiration. The patient had a white cell count of 8.4 with a hemoglobin of 10.2. This morning, it out with this patient in intensive care unit. She was on a mechanical ventilator. She was an assist-control at the rate of 14 with tidal volume of 375 and FiO2 of 50% with a PEEP of 5. Blood gas showed a pH of 7.54 with a pCO2 of 34 and pO2 166. Chest patient was somewhat limited as the patient has significant Scoliosis of the thoracic spine. Nevertheless, there was no airspace disease or consolidation. ET tube was in a good location. The patient had no significant orotracheal secretions. The patient remains hemodynamically stable. She was given a total of 2 L of IV fluids in the emergency department and she did not require any pressors. Her cardiac rhythm was sinus all of the patient has history of atrial fibrillation and she is maintained on anticoagulation with Eliquis. She also has obstructive sleep apnea and this was severe with an AHI of 76 and she was placed on APAP on outpatient basis. There is a month her various other comorbidities. 01/20/2021 the patient is being seen in follow-up in the intensive care unit. The patient got extubated yesterday and currently she is on a BiPAP at a pressure of 10/5 cm of water with an FiO2 of 60%. She is arousable. She is g enerating tidal volumes in the 550 range with a respiratory rate of 20. The blood gases from today showed a pH of 7.37 with a pCO2 of 48 empiric of 103. She is calm and comfortable while being on a BiPAP. Note that the patient postextubation she was placed on a BiPAP knowing that she has also severe obstructive sleep apnea. Chest x-ray from today shows some residual atelectatic changes and left lower lobe. Otherwise no acute abnormalities have been noted. Overnight, no seizure activity has been noted. The patient is free of any seizures for now. A EEG was done yesterday that showed abnormal findings with slowing suggestive of some mild encephalopathy. Meanwhile, the patient remains on Keppra 500 mg twice a day through her PEG tube and she is also on valproic acid syrup. TSH is down to 10.1. Free T4 is at 1.84. Rest of the electrolytes all stable for now. She is arousable. Brunson cath is in place. IV fluids are running at the rate of 75 mL an hour. 01/21/2021, I'm seeing this patient for a follow-up. Postextubation, the patient did well initially and she was doing well on a BiPAP and the patient was also able to transition to oxygen by nasal cannula. Nevertheless, over the past 24 hours and specially over the past 12 hours, the patient's condition has gotten worse. Repeat chest x-ray from this morning is showing bilateral pulmonary infiltrates, patchy, involving the left upper lobe and the right lower lobe. Sputum cultures collected earlier hand turner to be positive for pseudomonas aeruginosa and the patient was started on IV cefepime. Currently she is on B iPAP at a pressure of 10/5 cm of water with an FiO2 of 50%. She is quite suggestive the BiPAP. Nevertheless, she does lethargic and she seems to be more lethargic compared to yesterday. She opens her eyes upon termination she is following only simple commands. Hemodynamically stable on no pressors. No seizure activity has been noted. She is receiving enteral feeding for nutritional support and the PEG tube is functional at this point in time. Her white cell count is at 7.7. Her blood gases was done and FiO2 of 60% while the patient being on a BiPAP at a pressure of 10/5 in the blood case with a pH of 7.41 with a pCO2 of 46 and a pO2 of 144. Her pro-calcitonin level is at 0.07. Note that pseudomonas aeruginosa was also cultured and the patient's urine. On 01/22/2021 patient seen in follow-up in the intensive care unit, she is still lethargic, appears to be no acute distress, she is still on BiPAP support with pressures of 10/5 and FiO2 of 60%. Her pulse ox is around 93-95%, she is afebrile, her breathing is a bit more labored today, she had a chest x-ray completed today which showed worsening bilateral infiltrates with the possibility of a layering pleural effusion. She was given a dose of IV Lasix this morning 40 mg IV push and she is diuresing profusely, her oxygenation had since improved from 88% to 93% on FiO2 of 60%. Patient seems to be responding nicely to IV Lasix and she has been given an additional dose of 40 of Lasix this afternoon. She remains on cefepime for antibiotic coverage, her sputum and urine cultures were both positive for pseudomonas aeruginosa. Afebrile overnight, not requiring any vasopressor support. She is on 0.9 normal saline at a rate of 20 ML per hour. He slept 7 reviewed, her white count is 8.2, hemoglobin is 9.5, electrolytes are within normal limits, BUN is 50 creatinine 0.36. Patient is tolerating tube feedings, she is receiving vital AF at 45 with a goal of 45 and standard water flushes. A 2020, the patient remains in intensive care unit. She was on BiPAP throughout the day yesterday and the same pressures of 10/5 with an FiO2 of 50%. The patient's had diffuse breath and pulmonary infiltrates patient was found to have Pseudomonas in her sputum. The progesterone level was low at 0.06. Interstitial edema and fluid overload was suspected and the patient was given a total of 80 mg IV Lasix yesterday and the patient is a negative fluid balance of 80 mL over the past 24 hours. A follow-up chest x-ray was done today shows some improvement in the volume status and infiltration with discussed earlier. There is however still some patchy by the pulmonary infiltrates throughout the lung huynh bilaterally. The film is rotated and the patient has significant kyphoscoliosis of the thoracic spine. She is tolerating her BiPAP without any major difficulties. She is using a fullface mask. Note that she has also history of obstructive sleep apnea and she is using using bypass. The white cell count is at 7 with a hemoglobin of 9.4 and a platelet of 119. Normal renal function. TSH is at 4.5. She remains on IV cefepime regarding the Pseudomonas in her lungs. The cardiac rhythm is sinus and the patient is on long-term anticoagulation with Eliquis for now. She is on no pressors. IV fluids are currently at KVO. She is receiving enteral feeding for nutritional support. The patient is receiving vital AF at the rate of 45 mL an hour. She is also receiving some standard water flushes through her PEG tube. Objective - Vital Signs Vital signs: Vital Signs Temp 99.2 F 01/23/21 04:00 Pulse 73 01/23/21 08:26 Resp 24 01/23/21 07:00 BP 61/34 01/22/21 22:00 Pulse Ox 94 L 01/23/21 07:00 Intake & Output 01/22/21 01/23/21 01/23/21 18:59 06:59 18:59 Intake Total 861 911 53 Output Total 4155 390 30 Balance -9119 521 23 Weight 71.2 kg 71.2 kg Intake: IV 186 191 8 0.9 NS 55 5 Cefepime 2 gm In Sodium 100 Chloride 0.9% 100 ml @ 25 mls/hr IVPB Q12H [facility] Rx# :[id number] Pressure Bag 36 36 3 Sodium Chloride 0.9% 1, 150 000 ml @ 75 mls/hr IV . [id number] [facility] Rx#:[id number] Tube Feeding 585 540 45 Other 90 180 Output: Urine 3385 390 30 Other: Voiding Method Indwelling Catheter Indwelling Catheter ABP, PAP, CO, CI - Last Documented Arterial Blood Pressure 133/51 - Exam Calm and comfortable, the patient is resting comfortably on a BiPAP. She is arousable. She is lethargic, she is currently on BiPAP support blood pressures tend and 5 and FiO2 of 60%. The patient is lethargic. Slightly more sleepy compared to yesterday although she is arousable. Head exam was generally normal. There was no scleral icterus or corneal arcus. Mucous membranes were moist. Neck was supple and without jugular venous distension, thyromegaly, or carotid bruits. Carotids were easily palpable bilaterally. There was no adenopathy. Orogastric and aortic tube are both in place. Lungs are diminished and the patient is on obvious thoracic and thoracolumbar kyphoscoliosis with cervical kyphosis. Rest of the equal and symmetrical. No wheezes or rhonchi. Cardiac exam revealed the PMI to be normally situated and sized. The rhythm was regular and no extrasystoles were noted during several minutes of auscultation. The first and second heart sounds were normal and physiologic splitting of the second heart sound was noted. There were systolic ejection murmur consistent with aortic stenosis , rubs, clicks, or gallops. Abdominal exam revealed normal bowel sounds. The abdomen was soft, non-tender, and without masses, organomegaly, or appreciable enlargement of the abdominal aorta. The patient is a PEG tube in place and the PEG tube site is dry clean and intact and there is no direct tenderness or rebound tensile guarding. Bowel sounds are hypoactive at the present Examination of the extremities revealed easily palpable radial, femoral and pedal pulses. There was no cyanosis, clubbing or edema. Examination of the skin revealed no evidence of significant rashes, suspicious appearing nevi or other concerning lesions. 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 Neurologically the patient is following some simple commands. No focal neurological deficit. She is currently off propofol. - Labs CBC & Chem 7: 01/23/21 05:15 01/23/21 05:15 Labs: Abnormal Lab Results - Last 24 Hours (Table) 01/22/21 01/22/21 01/23/21 Range/Units 11:12 18:16 05:11 RBC (3.80-5.40) m/uL Hgb (11.4-16.0) gm/dL Hct (34.0-46.0) % RDW (11.5-15.5) % Potassium (3.5-5.1) mmol/L Carbon Dioxide (22-30) mmol/L BUN (7-17) mg/dL Creatinine (0.52-1.04) mg/dL Glucose (74-99) mg/dL POC Glucose (mg/dL) 106 H 125 H 114 H (75-99) mg/dL Total Bilirubin (0.2-1.3) mg/dL Total Protein (6.3-8.2) g/dL Albumin (3.5-5.0) g/dL 01/23/21 01/23/21 Range/Units 05:15 05:15 RBC 3.04 L (3.80-5.40) m/uL Hgb 9.4 L (11.4-16.0) gm/dL Hct 27.7 L (34.0-46.0) % RDW 17.3 H (11.5-15.5) % Potassium 3.3 L (3.5-5.1) mmol/L Carbon Dioxide 34 H (22-30) mmol/L BUN 20 H (7-17) mg/dL Creatinine 0.38 L (0.52-1.04) mg/dL Glucose 112 H (74-99) mg/dL POC Glucose (mg/dL) (75-99) mg/dL Total Bilirubin 0.1 L (0.2-1.3) mg/dL Total Protein 5.0 L (6.3-8.2) g/dL Albumin 2.6 L (3.5-5.0) g/dL Microbiology - Last 24 Hours (Table) 01/18/21 19:38 Blood Culture - Preliminary Blood No Growth after 96 hours 01/18/21 19:38 Blood Culture - Preliminary Blood No Growth after 96 hours Assessment and Plan Plan: 1 altered mentation secondary to breakthrough seizure and the patient with known history of epilepsy was maintained on Depakote on outpatient basis. The patient is currently free of any seizures maintained on a combination of Keppra and valproic acid. She remains lethargic yet arousable. No seizure activity has been noted and the patient remains on Keppra and valproic acid. 2 acute bilateral pneumonia, consider hospital-acquired pneumonia with pseudomonas aeruginosa. Initial chest x-ray was clear during the current hospitalization and post extubation the patient developed bilateral consolidation consistent with pseudomonal pneumonia and the patient is currently on IV cefepime. 2 suspected a component of fluid overload. The pro calcitonin level was 0.06. The patient was kept on IV cefepime. The patient was also diuresed with IV Lasix. 3 acute hypoxic respiratory failure. The patient recovered from respiratory failure initially the patient was extubated successfully. Subsequently she developed bilateral pneumonia secondary to pseudomonas aeruginosa and currently on BiPAP at pressure of 10/5 and FiO2 of 50%. Blood gases was noted and the patient is currently on IV cefepime. 4 dementia 5 Parkinson's disease, mild developmental delay 6 schizoaffective disorder 7 history of epilepsy 8 history of moderate degree of aortic stenosis and the patient has an obvious cardiac murmur on examination. Based on previous echocardiogram, ejection fraction was around 50-55% and the patient has moderate degree of pulmonary hypertension 9 stage IV left buttocks ulcers post-debridement without evidence of any acute infection. 10 esophageal stricture and the patient has a PEG tube in place for enteral feeding and nutritional support 11 abnormal gait due to our concern is and then dementia and the patient is wheelchair-bound and the patient has a caregiver at all 12 history approximately atrial fibrillation current rhythm is sinus 13 hypertension 14 hyperlipidemia 15 previous history of pneumonia and respiratory failure requiring prolonged hospitalization mechanical ventilation 16 history of recurrent UTIs, urine cultures is indicating Pseudomonas in her jaws and the patient is currently on IV cefepime.17 hypothyroidism 18 obstructive sleep apnea with an AHI of 78 maintained on a Pap on outpatient basis Plan: Continue BiPAP support on and off during the day. We'll give her a break off the BiPAP this morning and assess her oxygenation and assess her ability to come off the BiPAP and use a nasal cannula. Give Lasix 40 mg IV push 2 over the next 24 hours Continue cefepime Continue Depakote and Keppra for seizure control Continue bronchodilators Continue PEG tube feedings Follow-up chest x-ray tomorrow Follow-up labs electrolytes and renal profile Maintain aspiration precautions Overall prognosis guarded
--- NOTE | 2021-01-23 09:45 | P.PN ---
Subjective Progress Note Date: 01/22/21 80 years old female with past medical history of dementia, atrial fibrillation, asthma, heart failure, GERD, hypertension, hyperlipidemia, mitral valve prolapse, seizure disorder, hypothyroidism, Parkinson disease, developmental delay which is mild, she is a affective disorder, chronic anemia, moderate ao rtic stenosis with preserved LV function at ejection fraction of 50-55%, moderate pulmonary hypertension, left buttock wound, Patient was sent for possible seizure at home, patient was nonverbal upon arrival, she was hypothermic at 95.7, and 19.8, she was bradycardic at 43 to 50s, and hypotensive with blood pressure 83/68. Also patient was saturating 90% on room air however her oxygen saturation deteriorated and she needed to 15 L nonrebreather and eventually she got intubated in the emergency room On admission her CBC is unremarkable. Sodium is 131 on the low side, potassium normal, creatinine normal at 0.5. Liver enzymes are unremarkable, ProBNP is 351. TSH is elevated at 25.1 and free T4 is also elevated at 2.3. Urine analysis showing large leukocyte esterase and WBC elevated at 22. Valproic acid is 92 which is therapeutic. Coronavirus not detected. Chest x-ray: Left lower lobe infiltrate and atelectasis EKG showing sinus bradycardia at 47 with first-degree AV block, no significant ST-T changes. And QTC is 461. CT of the brain: No acute process. Ventricular enlargement with normal pressure hydrocephalus is considered less likely. Patient in the emergency room received ceftriaxone, several boluses of normal saline. Started on a propofol after intubation. Also with seizure control Objective - Vital Signs Vital signs: Vital Signs Temp 97.9 F 01/22/21 08:00 Pulse 94 01/22/21 11:00 Resp 31 H 01/22/21 11:00 BP 61/34 01/22/21 07:00 Pulse Ox 92 L 01/22/21 11:00 Intake & Output 01/21/21 01/22/21 01/22/21 18:59 06:59 18:59 Intake Total 1637 1366 420 Output Total 7354 209 7281 Balance 514 167 -0060 Weight 71.2 kg Intake: IV 952 636 165 Cefepime 2 gm In Sodium 100 Chloride 0.9% 100 ml @ 25 mls/hr IVPB Q12HR [facility] Rx #:[id number] Pressure Bag 27 36 15 Sodium Chloride 0.9% 1, 825 600 150 000 ml @ 75 mls/hr IV . [id number] [facility] Rx#:[id number] Intake, IV Titration 100 100 Amount Cefepime 1 gm In Sodium 100 Chloride 0.9% 50 ml @ 12. 5 mls/hr IVPB Q12H [facility] Rx #:[id number] Cefepime 2 gm In Sodium 100 Chloride 0.9% 100 ml @ 25 mls/hr IVPB Q8H [facility] Rx#: [id number] Tube Feeding 495 540 225 Other 90 90 30 Output: Urine 1966 630 7588 Other: Voiding Method Indwelling Catheter Indwelling Catheter ABP, PAP, CO, CI - Last Documented Arterial Blood Pressure 135/52 - Exam -GENERAL: The patient is intubated and sedated HEENT: Pupils are round and equally reacting to light. EOMI. No scleral icterus. No conjunctival pallor. Normocephalic, atraumatic. No pharyngeal erythema. No thyromegaly. CARDIOVASCULAR: S1 and S2 present. No murmurs, rubs, or gallops. PULMONARY: Chest is clear to auscultation, no wheezing or crackles. ABDOMEN: Soft, nontender, nondistended, normoactive bowel sounds. No palpable organomegaly. MUSCULOSKELETAL: No joint swelling or deformity. EXTREMITIES: No cyanosis, clubbing, or pedal edema. NEUROLOGICAL: Gross neurological examination did not reveal any focal deficits. SKIN: No rashes. No petechiae, exam is limited because patient clinical status for example intubation - Labs CBC & Chem 7: 01/23/21 05:15 01/23/21 05:15 Labs: Abnormal Lab Results - Last 24 Hours (Table) 01/21/21 01/21/21 01/22/21 Range/Units 12:18 18:03 00:48 RBC (3.80-5.40) m/uL Hgb (11.4-16.0) gm/dL Hct (34.0-46.0) % RDW (11.5-15.5) % Creatinine (0.52-1.04) mg/dL Glucose (74-99) mg/dL POC Glucose (mg/dL) 138 H 125 H 120 H (75-99) mg/dL 01/22/21 01/22/21 01/22/21 Range/Units 05:13 05:15 05:15 RBC 3.09 L (3.80-5.40) m/uL Hgb 9.5 L (11.4-16.0) gm/dL Hct 28.1 L (34.0-46.0) % RDW 17.3 H (11.5-15.5) % Creatinine 0.36 L (0.52-1.04) mg/dL Glucose 104 H (74-99) mg/dL POC Glucose (mg/dL) 105 H (75-99) mg/dL 01/22/21 Range/Units 11:12 RBC (3.80-5.40) m/uL Hgb (11.4-16.0) gm/dL Hct (34.0-46.0) % RDW (11.5-15.5) % Creatinine (0.52-1.04) mg/dL Glucose (74-99) mg/dL POC Glucose (mg/dL) 106 H (75-99) mg/dL Microbiology - Last 24 Hours (Table) 01/18/21 19:38 Blood Culture - Preliminary Blood No Growth after 72 hours 01/18/21 19:38 Blood Culture - Preliminary Blood No Growth after 72 hours 01/18/21 19:38 Urine Culture - Final Urine,Voided Pseudomonas aeruginosa 01/18/21 21:25 Gram Stain - Final Sputum Sputum Culture - Final Pseudomonas aeruginosa Assessment and Plan Assessment: Suspected breakthrough seizure Acute hypoxic respiratory failure, status post intubation Hypotension, improvement Acute urinary tract infection secondary to gram-negative bacilli Left lower lobe pneumonia secondary to gram-negative bacilli dementia History of atrial fibrillation History of asthma History of heart failure History of GERD History of hypertension History of hyperlipidemia History of mitral valve prolapse History of seizure disorder History of hypothyroidism History of Parkinson disease History of developmental delay which is mild History of schizoaffective disorder History of chronic anemia History of moderate aortic stenosis with preserved LV function at ejection fraction of 50-55% History of moderate pulmonary hypertension History of left buttock wound Plan: This is a pleasant 80 years old female who presents with seizure and respiratory failure status post intubation/extubation, currently kept on BiPAP Pulmonary/critical care consult, Neurology consult recommended Keppra continue with Depakote. Continue with iv thyroxine Continue cefepime although patient felt to have colonization of her sputum and urine her than infection or UTI. But we will keep the antibiotics for patient is hypothermic and lower dose to 1 g twice a day Wound team consult Labs and medication were reviewed.. Continue same treatment. Continue with symptomatic treatment. Resume home medication. Monitor lytes and vitals. DVT and GI prophylaxis. Further recommendations depends on the clinical course of the patient DVT prophylaxis: Subcutaneous heparin GI Prophylaxis: Ppi PT/OT: Pending Prognosis is guarded
[2021-01-23] MEDS: levETIRAcetam 500 MG TAB PEG/G-TUBE SCH ×2 (10:55→21:08)
[2021-01-23] MEDS: ATORVASTATIN 10 MG TAB PEG/G-TUBE SCH (10:55)
[2021-01-23] MEDS: APIXABAN 2.5 MG TABLET PEG/G-TUBE SCH ×2 (10:55→21:08)
[2021-01-23] MEDS: PANTOPRAZOLE 40 MG/10 ML VIAL IV SCH (10:56)
[2021-01-23] MEDS: VALPROIC ACID ORAL SOLN 250 MG/5 ML CUP PEG/G-TUBE SCH ×2 (10:56→21:08)
[2021-01-23] MEDS: risperiDONE 1 MG TAB PEG/G-TUBE SCH ×2 (10:57→21:08)
[2021-01-23] MEDS: predniSONE 5 MG TAB PEG/G-TUBE SCH (10:57)
[2021-01-23 11:28] LABS: Glucose,Whole Blood 100 mg/dL (75-99)
[2021-01-23] MEDS ORDERED: POTASSIUM BICARBONATE/CIT AC 20 MEQ TABLET.EFF NG-TUBE SCH (17:00)
[2021-01-23 17:23] LABS: Glucose,Whole Blood 117 mg/dL (75-99)
--- NOTE | 2021-01-23 17:24 | P.PN ---
Subjective Progress Note Date: 01/23/21 Principal diagnosis: Altered mental status possibly secondary to breakthrough seizures Acute bilateral pneumonia/ HCAP Acute hypoxic respiratory failure 80 years old female with past medical history of dementia, atrial fibrillation, asthma, heart failure, GERD, hypertension, hyperlipidemia, mitral valve prolapse, seizure disorder, hypothyroidism, Parkinson disease, developmental delay which is mild, she is a affective disorder, chronic anemia, moderate aortic stenosis with preserved LV function at ejection fraction of 50-55%, moderate pulmonary hypertension, left buttock wound, Patient was sent for possible seizure at home, patient was nonverbal upon arrival, she was hypothermic at 95.7, and 19.8, she was bradycardic at 43 to 50s, and hypotensive with blood pressure 83/68. Also patient was saturating 90% on room air however her oxygen saturation deteriorated and she needed to 15 L nonrebreather and eventually she got intubated in the emergency room On admission her CBC is unremarkable. Sodium is 131 on the low side, potassium normal, creatinine normal at 0.5. Liver enzymes are unremarkable, ProBNP is 351. TSH is elevated at 25.1 and free T4 is also elevated at 2.3. Urine analysis showing large leukocyte esterase and WBC elevated at 22. Valproic acid is 92 which is therapeutic. Coronavirus not detected. Chest x-ray: Left lower lobe infiltrate and atelectasis EKG showing sinus bradycardia at 47 with first-degree AV block, no significant ST-T changes. And QTC is 461. CT of the brain: No acute process. Ventricular enlargement with normal pressure hydrocephalus is considered less likely. Patient in the emergency room received ceftriaxone, several boluses of normal saline. Started on a propofol after intubation. Also with seizure control 01/23/2021 the patient remains in intensive care unit, on BiPAP throughout the day The patient's had diffuse breath and pulmonary infiltrates patient was found to have Pseudomonas in her sputum. Interstitial edema and fluid overload was suspected and the patient was given a total of 80 mg IV Lasix yesterday and the patient is a negative fluid balance of 80 mL over the past 24 hours. A follow- up chest x-ray was done today shows some improvement in the volume status and infiltration with discussed earlier. There is however still some patchy by the pulmonary infiltrates throughout the lung huynh bilaterally. She is tolerating her BiPAP without any major difficulties. She is using a fullface mask. Note that she has also history of obstructive sleep apnea and she is using using bypass. The white cell count is at 7 with a hemoglobin of 9 .4 and a platelet of 119. Normal renal function. TSH is at 4.5. She remains on IV cefepime regarding the Pseudomonas in her lungs. The cardiac rhythm is sinus and the patient is on long-term anticoagulation with Eliquis for now. She is on no pressors. IV fluids are currently at KVO. She is receiving enteral feeding for nutritional support. The patient is receiving vital AF at the rate of 45 mL an hour. She is also receiving some standard water flushes through her PEG tube. Plan is to continue with BiPAP support on and off during the day; patient will receive Lasix 40 mg IV twice a day for next 24 hours; remains on IV cefepime; continue with Depakote and Keppra for seizure control Objective - Vital Signs Vital signs: Vital Signs Temp 99.2 F 01/23/21 04:00 Pulse 73 01/23/21 08:26 Resp 24 01/23/21 07:00 BP 61/34 01/22/21 22:00 Pulse Ox 94 L 01/23/21 07:00 Intake & Output 01/22/21 01/23/21 01/23/21 18:59 06:59 18:59 Intake Total 861 911 53 Output Total 3385 390 30 Balance -3482 521 23 Weight 71.2 kg 71.2 kg Intake: IV 186 191 8 0.9 NS 55 5 Cefepime 2 gm In Sodium 100 Chloride 0.9% 100 ml @ 25 mls/hr IVPB Q12H DEANNA Rx# :[id number] Pressure Bag 36 36 3 Sodium Chloride 0.9% 1, 150 000 ml @ 75 mls/hr IV . [id number] DEANNA Rx#:[id number] Tube Feeding 585 540 45 Other 90 180 Output: Urine 3385 390 30 Other: Voiding Method Indwelling Catheter Indwelling Catheter ABP, PAP, CO, CI - Last Documented Arterial Blood Pressure 133/51 - Exam -GENERAL: The patient is intubated and sedated HEENT: Pupils are round and equally reacting to light. EOMI. No scleral icterus. No conjunctival pallor. Normocephalic, atraumatic. No pharyngeal erythema. No thyromegaly. CARDIOVASCULAR: S1 and S2 present. No murmurs, rubs, or gallops. PULMONARY: Chest is clear to auscultation, no wheezing or crackles. ABDOMEN: Soft, nontender, nondistended, normoactive bowel sounds. No palpable organomegaly. MUSCULOSKELETAL: No joint swelling or deformity. EXTREMITIES: No cyanosis, clubbing, or pedal edema. NEUROLOGICAL: Gross neurological examination did not reveal any focal deficits. SKIN: No rashes. No petechiae, exam is limited because patient clinical status for example intubation - Labs CBC & Chem 7: 01/23/21 05:15 01/23/21 15:02 Labs: Abnormal Lab Results - Last 24 Hours (Table) 01/22/21 01/22/21 01/23/21 Range/Units 11:12 18:16 05:11 RBC (3.80-5.40) m/uL Hgb (11.4-16.0) gm/dL Hct (34.0-46.0) % RDW (11.5-15.5) % Potassium (3.5-5.1) mmol/L Carbon Dioxide (22-30) mmol/L BUN (7-17) mg/dL Creatinine (0.52-1.04) mg/dL Glucose (74-99) mg/dL POC Glucose (mg/dL) 106 H 125 H 114 H (75-99) mg/dL Total Bilirubin (0.2-1.3) mg/dL Total Protein (6.3-8.2) g/dL Albumin (3.5-5.0) g/dL 01/23/21 01/23/21 Range/Units 05:15 05:15 RBC 3.04 L (3.80-5.40) m/uL Hgb 9.4 L (11.4-16.0) gm/dL Hct 27.7 L (34.0-46.0) % RDW 17.3 H (11.5-15.5) % Potassium 3.3 L (3.5-5.1) mmol/L Carbon Dioxide 34 H (22-30) mmol/L BUN 20 H (7-17) mg/dL Creatinine 0.38 L (0.52-1.04) mg/dL Glucose 112 H (74-99) mg/dL POC Glucose (mg/dL) (75-99) mg/dL Total Bilirubin 0.1 L (0.2-1.3) mg/dL Total Protein 5.0 L (6.3-8.2) g/dL Albumin 2.6 L (3.5-5.0) g/dL Microbiology - Last 24 Hours (Table) 01/18/21 19:38 Blood Culture - Preliminary Blood No Growth after 96 hours 01/18/21 19:38 Blood Culture - Preliminary Blood No Growth after 96 hours Assessment and Plan Assessment: Suspected breakthrough seizure Acute hypoxic respiratory failure, status post intubation Hypotension, improvement Acute urinary tract infection secondary to gram-negative bacilli Left lower lobe pneumonia secondary to gram-negative bacilli dementia History of atrial fibrillation History of asthma History of heart failure History of GERD History of hypertension History of hyperlipidemia History of mitral valve prolapse History of seizure disorder History of hypothyroidism History of Parkinson disease History of developmental delay which is mild History of schizoaffective disorder History of chronic anemia History of moderate aortic stenosis with preserved LV function at ejection fraction of 50-55% History of moderate pulmonary hypertension History of left buttock wound Plan: This is a pleasant 80 years old female who presents with seizure and respiratory failure status post intubation/extubation, currently kept on BiPAP Pulmonary/critical care consult, Neurology consult recommended Keppra continue with Depakote. Continue with iv thyroxine Continue cefepime although patient felt to have colonization of her sputum and urine her than infection or UTI. But we will keep the antibiotics for patient is hypothermic and lower dose to 1 g twice a day Wound team consult Labs and medication were reviewed.. Continue same treatment. Continue with symptomatic treatment. Resume home medication. Monitor lytes and vitals. DVT and GI prophylaxis. Further recommendations depends on the clinical course of the patient DVT prophylaxis: Subcutaneous heparin GI Prophylaxis: Ppi PT/OT: Pending Prognosis is guarded
[2021-01-23 17:38] LABS: Glucose,Whole Blood 120 mg/dL (75-99)
[2021-01-23] MEDS: LATANOPROST 0.005% OPHTH DROPS 2.5 ML BTL BOTH EYES SCH (21:08)
[2021-01-23] MEDS: MONTELUKAST 5 MG CHEWABLE PEG/G-TUBE SCH (21:27)
[2021-01-23 23:34] LABS: Glucose,Whole Blood 110 mg/dL (75-99)
[2021-01-24 05:11] LABS: Anisocytosis Slight; Basophils % (A) 0 %; Eosinophils # (A) 0.3 k/uL (0-0.7); Eosinophils % (A) 4 %; HCT 29.3 % (34.0-46.0); HGB 9.9 gm/dL (11.4-16.0); Lymphocytes # (A) 1.4 k/uL (1.0-4.8); Lymphocytes % (A) 17 %; MCH 30.5 pg (25.0-35.0); MCHC 33.7 g/dL (31.0-37.0); MCV 90.6 fL (80.0-100.0); Mean Platelet Volume 7.5; Monocytes # (A) 0.5 k/uL (0-1.0); Monocytes % (A) 6 %; Neutrophils # (A) 5.8 k/uL (1.3-7.7); Neutrophils % (A) 71 %; Platelet Count 237 k/uL (150-450); RBC 3.23 m/uL (3.80-5.40); RDW 17.6 % (11.5-15.5); WBC 8.2 k/uL (3.8-10.6)
[2021-01-24 05:46] LABS: ALT 20 U/L (4-34); AST 30 U/L (14-36); African American GFR (CKD) >90 (>60 ml/min/1.73 sqM); Albumin 2.8 g/dL (3.5-5.0); Alkaline Phosphatase 115 U/L (38-126); Anion Gap 7 mmol/L; Blood Urea Nitrogen 24 mg/dL (7-17); Carbon Dioxide 35 mmol/L (22-30); Chloride 94 mmol/L (98-107); Glucose 108 mg/dL (74-99); Non-African American GFR(CKD) >90 (>60 ml/min/1.73 sqM); Potassium 3.9 mmol/L (3.5-5.1); Sodium 136 mmol/L (137-145); Total Bilirubin 0.2 mg/dL (0.2-1.3); Total Protein 5.5 g/dL (6.3-8.2)
[2021-01-24 06:19] LABS: Glucose,Whole Blood 108 mg/dL (75-99)
--- NOTE | 2021-01-24 06:25 | XR ---
EXAMINATION TYPE: XR chest 1V DATE OF EXAM: 01/24/2021 COMPARISON: 01/23/2021 HISTORY: Pneumonia TECHNIQUE: Single frontal view of the chest is obtained. FINDINGS: There is pulmonary vascular congestion and diffuse partially consolidative fluffy airspace opacities consistent with pulmonary edema or diffuse pneumonia. Left hemidiaphragm is obscured likel y secondary to combination of pleural effusion, atelectasis and/or parenchymal consolidation. There is no pneumothorax. The heart size is normal. The osseous structures are intact. Allowing for d ifferences in technique there is no significant interval change. IMPRESSION: Moderate acute cardiopulmonary disease with no significant interval change.
[2021-01-24] MEDS: INSULIN ASPART (NovoLOG) 100 UNIT/ML VIAL SQ SCH ×3 (06:30→17:05)
[2021-01-24] MEDS: LEVOTHYROXINE IVP 100 MCG/5 ML VIAL IV SCH (06:33)
[2021-01-24] MEDS: CEFEPIME 2 GM in SODIUM CHLORIDE 0.9% 100 ML IVPB SCH ×2 (06:44→15:55)
[2021-01-24] MEDS ORDERED: POTASSIUM BICARBONATE/CIT AC 20 MEQ TABLET.EFF NG-TUBE SCH (07:30)
[2021-01-24] MEDS: VALPROIC ACID ORAL SOLN 250 MG/5 ML CUP PEG/G-TUBE SCH ×2 (08:06→20:45)
[2021-01-24] MEDS: risperiDONE 1 MG TAB PEG/G-TUBE SCH ×2 (08:06→20:44)
[2021-01-24] MEDS: PANTOPRAZOLE 40 MG/10 ML VIAL IV SCH (08:06)
[2021-01-24] MEDS: levETIRAcetam 500 MG TAB PEG/G-TUBE SCH ×2 (08:07→20:44)
[2021-01-24] MEDS: ATORVASTATIN 10 MG TAB PEG/G-TUBE SCH (08:07)
[2021-01-24] MEDS: APIXABAN 2.5 MG TABLET PEG/G-TUBE SCH ×2 (08:07→20:44)
[2021-01-24] MEDS: predniSONE 5 MG TAB PEG/G-TUBE SCH (08:07)
[2021-01-24] MEDS: FORMOTEROL FUMARATE 20 MCG/2 ML NEBU INHALATION SCH ×2 (08:38→19:43)
[2021-01-24] MEDS: BUDESONIDE 0.25 MG/2 ML NEBU INHALATION SCH ×2 (08:38→19:43)
--- NOTE | 2021-01-24 09:58 | P.PN ---
Subjective Progress Note Date: 01/24/21 Altered mental status, due to breakthrough seizure, acute bilateral pneumonia This is a 80-year-old female patient, known to me from previous admissions, known to have multiple medical problems and comorbidities most significant a history of dementia along with schizophrenia with Parkinson's disease was been essentially bedridden and she has a 24-hour caregiver at home. Recently, the patient has developed a stage IV sacral decub ulcer and the patient was in the hospital yesterday for a debridement procedure that was done and the patient was discharged home. Discharge, the patient was noted to have seizure activity at home. Note that she has history of seizures and she has been maintained on Depakote on outpatient basis. She was given all of her medications with a caregiver without any interruption. Her seizure lasted for few minutes and the patient was postictal. Apparently she was having tonic-clonic activity as documented by the emergency department team. The patient in the emergency was evaluated. Mentation was altered. She was having twitching in her tongue and mouth area and it was suspected that she was having ongoing seizure activity. For that reason, the patient was started on propofol and the patient was intubated and placed on a mechanical ventilator for airway protection. Note that the patient apparently was having seizures in the past. She had to seizure activities back in October 2020. She sees a neurologist out of [facility]. She was seen by her neurologist recently and she has not skipped any of her Depakote doses. The patient was given a total of 1 mg Ativan in the emergency department. Her valproic acid level was at 92. The patient was seen by neurology today and the patient was given 1 g every 12 hours and the neurologist asked to continue the Depakote. CAT scan of the brain was done in the emergency department showed no acute abnormalities. No reported fever. No reported neck stiffness. No reported aspiration. The patient had a white cell count of 8.4 with a hemoglobin of 10.2. This morning, it out with this patient in intensive care unit. She was on a mechanical ventilator. She was an assist-control at the rate of 14 with tidal volume of 375 and FiO2 of 50% with a PEEP of 5. Blood gas showed a pH of 7.54 with a pCO2 of 34 and pO2 166. Chest patient was somewhat limited as the patient has significant Scoliosis of the thoracic spine. Nevertheless, there was no airspace disease or consolidation. ET tube was in a good location. The patient had no significant orotracheal secretions. The patient remains hemodynamically stable. She was given a total of 2 L of IV fluids in the emergency department and she did not require any pressors. Her cardiac rhythm was sinus all of the patient has history of atrial fibrillation and she is maintained on anticoagulation with Eliquis. She also has obstructive sleep apnea and this was severe with an AHI of 76 and she was placed on APAP on outpatient basis. There is a month her various other comorbidities. 01/20/2021 the patient is being seen in follow-up in the intensive care unit. The patient got extubated yesterday and currently she is on a BiPAP at a pressure of 10/5 cm of water with an FiO2 of 60%. She is arousable. She is g enerating tidal volumes in the 550 range with a respiratory rate of 20. The blood gases from today showed a pH of 7.37 with a pCO2 of 48 empiric of 103. She is calm and comfortable while being on a BiPAP. Note that the patient postextubation she was placed on a BiPAP knowing that she has also severe obstructive sleep apnea. Chest x-ray from today shows some residual atelectatic changes and left lower lobe. Otherwise no acute abnormalities have been noted. Overnight, no seizure activity has been noted. The patient is free of any seizures for now. A EEG was done yesterday that showed abnormal findings with slowing suggestive of some mild encephalopathy. Meanwhile, the patient remains on Keppra 500 mg twice a day through her PEG tube and she is also on valproic acid syrup. TSH is down to 10.1. Free T4 is at 1.84. Rest of the electrolytes all stable for now. She is arousable. Brunson cath is in place. IV fluids are running at the rate of 75 mL an hour. 01/21/2021, I'm seeing this patient for a follow-up. Postextubation, the patient did well initially and she was doing well on a BiPAP and the patient was also able to transition to oxygen by nasal cannula. Nevertheless, over the past 24 hours and specially over the past 12 hours, the patient's condition has gotten worse. Repeat chest x-ray from this morning is showing bilateral pulmonary infiltrates, patchy, involving the left upper lobe and the right lower lobe. Sputum cultures collected earlier steel turner to be positive for pseudomonas aeruginosa and the patient was started on IV cefepime. Currently she is on B iPAP at a pressure of 10/5 cm of water with an FiO2 of 50%. She is quite suggestive the BiPAP. Nevertheless, she does lethargic and she seems to be more lethargic compared to yesterday. She opens her eyes upon termination she is following only simple commands. Hemodynamically stable on no pressors. No seizure activity has been noted. She is receiving enteral feeding for nutritional support and the PEG tube is functional at this point in time. Her white cell count is at 7.7. Her blood gases was done and FiO2 of 60% while the patient being on a BiPAP at a pressure of 10/5 in the blood case with a pH of 7.41 with a pCO2 of 46 and a pO2 of 144. Her pro-calcitonin level is at 0.07. Note that pseudomonas aeruginosa was also cultured and the patient's urine. On 01/22/2021 patient seen in follow-up in the intensive care unit, she is still lethargic, appears to be no acute distress, she is still on BiPAP support with pressures of 10/5 and FiO2 of 60%. Her pulse ox is around 93-95%, she is afebrile, her breathing is a bit more labored today, she had a chest x-ray completed today which showed worsening bilateral infiltrates with the possibility of a layering pleural effusion. She was given a dose of IV Lasix this morning 40 mg IV push and she is diuresing profusely, her oxygenation had since improved from 88% to 93% on FiO2 of 60%. Patient seems to be responding nicely to IV Lasix and she has been given an additional dose of 40 of Lasix this afternoon. She remains on cefepime for antibiotic coverage, her sputum and urine cultures were both positive for pseudomonas aeruginosa. Afebrile overnight, not requiring any vasopressor support. She is on 0.9 normal saline at a rate of 20 ML per hour. He slept 7 reviewed, her white count is 8.2, hemoglobin is 9.5, electrolytes are within normal limits, BUN is 50 creatinine 0.36. Patient is tolerating tube feedings, she is receiving vital AF at 45 with a goal of 45 and standard water flushes. A 2020, the patient remains in intensive care unit. She was on BiPAP throughout the day yesterday and the same pressures of 10/5 with an FiO2 of 50%. The patient's had diffuse breath and pulmonary infiltrates patient was found to have Pseudomonas in her sputum. The progesterone level was low at 0.06. Interstitial edema and fluid overload was suspected and the patient was given a total of 80 mg IV Lasix yesterday and the patient is a negative fluid balance of 80 mL over the past 24 hours. A follow-up chest x-ray was done today shows some improvement in the volume status and infiltration with discussed earlier. There is however still some patchy by the pulmonary infiltrates throughout the lung huynh bilaterally. The film is rotated and the patient has significant kyphoscoliosis of the thoracic spine. She is tolerating her BiPAP without any major difficulties. She is using a fullface mask. Note that she has also history of obstructive sleep apnea and she is using using bypass. The white cell count is at 7 with a hemoglobin of 9.4 and a platelet of 119. Normal renal function. TSH is at 4.5. She remains on IV cefepime regarding the Pseudomonas in her lungs. The cardiac rhythm is sinus and the patient is on long-term anticoagulation with Eliquis for now. She is on no pressors. IV fluids are currently at KVO. She is receiving enteral feeding for nutritional support. The patient is receiving vital AF at the rate of 45 mL an hour. She is also receiving some standard water flushes through her PEG tube. 01/24/2021, the patient is being seen for a follow-up in the intensive care unit. The patient is currently off the BiPAP and she is currently on oxygen at 6 L per minute nasal cannula. She was taken off the BiPAP yesterday and she manages well and overnight she was placed back on the BiPAP and she is back on 6 L of oxygen by nasal cannula. I feel that the chest x-rays improving. The patient has still some fluffy consolidation left upper lobe. Nevertheless, the volume status is improving. The patient has been a negative fluid balance. She is receiving IV Lasix and she has been at least 3-4 L negative over the past 2 days. She is making excellent urine output. She is still having enteral feeding for nutritional support via PEG tube. She is receiving vital AF at the rate of 45 mL an hour. She has not had a bowel movement yet. She remains on IV cefepime regarding the pseudomonal growth in her urine and in her lungs. There may be a superimposed pneumonia with Pseudomonas on top of her excessive fluid overload and possibly component of CHF. Note that the patient has also valvular heart disease. She has aortic valve stenosis. She also has a component of froy ral valve prolapse. Preserved LV function. Arousable. Communicating. No focal neurological deficit. Quite debilitated due to her Objective - Vital Signs Vital signs: Vital Signs Temp 98.3 F 01/24/21 08:00 Pulse 92 01/24/21 09:00 Resp 26 H 01/24/21 09:00 BP 61/34 01/22/21 22:00 Pulse Ox 96 01/24/21 09:00 Intake & Output 01/23/21 01/24/21 01/24/21 18:59 06:59 18:59 Intake Total 846 538 231 Output Total 1830 1695 120 Balance -984 -1157 111 Weight 67.2 kg Intake: IV 156 73 21 0.9 NS 45 55 15 Cefepime 2 gm In Sodium 75 Chloride 0.9% 100 ml @ 25 mls/hr IVPB Q12H [facility] Rx# :[id number] Pressure Bag 36 18 6 Tube Feeding 660 405 180 Other 30 60 30 Output: Urine 1830 1695 120 Other: Voiding Method Indwelling Catheter Indwelling Catheter Indwelling Catheter ABP, PAP, CO, CI - Last Documented Arterial Blood Pressure 118/44 - Exam Calm and comfortable, the patient is resting comfortably on 6 liters NC, she is arousable. Head exam was generally normal. There was no scleral icterus or corneal arcus. Mucous membranes were moist. Neck was supple and without jugular venous distension, thyromegaly, or carotid bruits. Carotids were easily palpable bilaterally. There was no adenopathy. Orogastric and aortic tube are both in place. Lungs are diminished and the patient is on obvious thoracic and thoracolumbar kyphoscoliosis with cervical kyphosis. Rest of the equal and symmetrical. No wheezes or rhonchi. Cardiac exam revealed the PMI to be normally situated and sized. The rhythm was regular and no extrasystoles were noted during several minutes of auscultation. The first and second heart sounds were normal and physiologic splitting of the second heart sound was noted. There were systolic ejection murmur consistent with aortic stenosis , rubs, clicks, or gallops. Abdominal exam revealed normal bowel sounds. The abdomen was soft, non-tender, and without masses, organomegaly, or appreciable enlargement of the abdominal aorta. The patient is a PEG tube in place and the PEG tube site is dry clean and intact and there is no direct tenderness or rebound tensile guarding. Bowel sounds are hypoactive at the present Examination of the extremities revealed easily palpable radial, femoral and pedal pulses. There was no cyanosis, clubbing or edema. Examination of the skin revealed no evidence of significant rashes, suspicious appearing nevi or other concerning lesions. 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 Neurologically the patient is following some simple commands. No focal neurological deficit. - Labs CBC & Chem 7: 01/24/21 04:38 01/24/21 04:38 Labs: Abnormal Lab Results - Last 24 Hours (Table) 01/23/21 01/23/21 01/23/21 Range/Units 11:27 17:22 17:36 RBC (3.80-5.40) m/uL Hgb (11.4-16.0) gm/dL Hct (34.0-46.0) % RDW (11.5-15.5) % Sodium (137-145) mmol/L Chloride (98-107) mmol/L Carbon Dioxide (22-30) mmol/L BUN (7-17) mg/dL Creatinine (0.52-1.04) mg/dL Glucose (74-99) mg/dL POC Glucose (mg/dL) 100 H 117 H 120 H (75-99) mg/dL Total Protein (6.3-8.2) g/dL Albumin (3.5-5.0) g/dL 01/23/21 01/24/21 01/24/21 Range/Units 23:31 04:38 04:38 RBC 3.23 L (3.80-5.40) m/uL Hgb 9.9 L (11.4-16.0) gm/dL Hct 29.3 L (34.0-46.0) % RDW 17.6 H (11.5-15.5) % Sodium 136 L (137-145) mmol/L Chloride 94 L (98-107) mmol/L Carbon Dioxide 35 H (22-30) mmol/L BUN 24 H (7-17) mg/dL Creatinine 0.42 L (0.52-1.04) mg/dL Glucose 108 H (74-99) mg/dL POC Glucose (mg/dL) 110 H (75-99) mg/dL Total Protein 5.5 L (6.3-8.2) g/dL Albumin 2.8 L (3.5-5.0) g/dL 01/24/21 Range/Units 06:18 RBC (3.80-5.40) m/uL Hgb (11.4-16.0) gm/dL Hct (34.0-46.0) % RDW (11.5-15.5) % Sodium (137-145) mmol/L Chloride (98-107) mmol/L Carbon Dioxide (22-30) mmol/L BUN (7-17) mg/dL Creatinine (0.52-1.04) mg/dL Glucose (74-99) mg/dL POC Glucose (mg/dL) 108 H (75-99) mg/dL Total Protein (6.3-8.2) g/dL Albumin (3.5-5.0) g/dL Microbiology - Last 24 Hours (Table) 01/18/21 19:38 Blood Culture - Preliminary Blood No Growth after 120 hours 01/18/21 19:38 Blood Culture - Preliminary Blood No Growth after 120 hours Assessment and Plan Plan: 1 altered mentation secondary to breakthrough seizure and the patient with known history of epilepsy was maintained on Depakote on outpatient basis. The patient is currently free of any seizures maintained on a combination of Keppra and valproic acid. She remains lethargic yet arousable. No seizure activity has been noted and the patient remains on Keppra and valproic acid. 2 acute bilateral pneumonia, consider hospital-acquired pneumonia with pseudomonas aeruginosa, , currently on IV cefepime 3 acute hypoxic respiratory failure, due to a combination of a pneumonia and some fluid overload. Currently she is off the BiPAP and the patient is currently on 6 L of oxygen by nasal cannula. Nevertheless, overnight, I would like her to go back on a BiPAP knowing that she has a severe obstructive sleep apnea. She is improving. She is on IV Lasix. She is also on IV cefepime. She is receiving bronchodilators. 4 dementia 5 Parkinson's disease, mild developmental delay 6 schizoaffective disorder 7 history of epilepsy 8 history of moderate degree of aortic stenosis and the patient has an obvious cardiac murmur on examination. Based on previous echocardiogram, ejection fraction was around 50-55% and the patient has moderate degree of pulmonary hypertension 9 stage IV left buttocks ulcers post-debridement without evidence of any acute infection. Reevaluation of the wound shows extensive that tissue that needs to be debrided again and will ask the surgeon to reevaluate the wound. 10 esophageal stricture and the patient has a PEG tube in place for enteral feeding and nutritional support 11 abnormal gait due to our concern is and then dementia and the patient is wheelchair-bound and the patient has a caregiver at all 12 history approximately atrial fibrillation current rhythm is sinus 13 hypertension 14 hyperlipidemia 15 previous history of pneumonia and respiratory failure requiring prolonged hospitalization mechanical ventilation 16 history of recurrent UTIs, urine cultures is indicating Pseudomonas , currently on IV cefepime 17 hypothyroidism 18 obstructive sleep apnea with an AHI of 78 maintained on a Pap on outpatient basis Plan: Continue BiPAP support on and off during the day and he was set nighttime and the patient will be kept for now on 6 L about 2 by nasal cannula. Chest x-ray stable, improving and the patient remains on diuretics and IV cefepime. Lasix 40 mg IV qd Continue cefepime Continue Depakote and Keppra for seizure control Continue bronchodilators Continue PEG tube feedings Colace Supp Surgical consult for wound debridement Follow-up chest x-ray tomorrow Follow-up labs electrolytes and renal profile Maintain aspiration precautions Overall prognosis guarded
[2021-01-24] MEDS ORDERED: DOCUSATE ORAL SOLN 100 MG/10 ML CUP PO PRN (10:05)
[2021-01-24] MEDS: FUROSEMIDE 10 MG/ML 4 ML VIAL IV SCH (10:54)
[2021-01-24 11:41] LABS: Glucose,Whole Blood 114 mg/dL (75-99)
--- NOTE | 2021-01-24 16:21 | P.PN ---
Subjective Progress Note Date: 01/24/21 Principal diagnosis: Altered mental status possibly secondary to breakthrough seizures Acute bilateral pneumonia/ HCAP Acute hypoxic respiratory failure 80 years old female with past medical history of dementia, atrial fibrillation, asthma, heart failure, GERD, hypertension, hyperlipidemia, mitral valve prolapse, seizure disorder, hypothyroidism, Parkinson disease, developmental delay which is mild, she is a affective disorder, chronic anemia, moderate aortic stenosis with preserved LV function at ejection fraction of 50-55%, moderate pulmonary hypertension, left buttock wound, Patient was sent for possible seizure at home, patient was nonverbal upon arrival, she was hypothermic at 95.7, and 19.8, she was bradycardic at 43 to 50s, and hypotensive with blood pressure 83/68. Also patient was saturating 90% on room air however her oxygen saturation deteriorated and she needed to 15 L nonrebreather and eventually she got intubated in the emergency room On admission her CBC is unremarkable. Sodium is 131 on the low side, potassium normal, creatinine normal at 0.5. Liver enzymes are unremarkable, ProBNP is 351. TSH is elevated at 25.1 and free T4 is also elevated at 2.3. Urine analysis showing large leukocyte esterase and WBC elevated at 22. Valproic acid is 92 which is therapeutic. Coronavirus not detected. Chest x-ray: Left lower lobe infiltrate and atelectasis EKG showing sinus bradycardia at 47 with first-degree AV block, no significant ST-T changes. And QTC is 461. CT of the brain: No acute process. Ventricular enlargement with normal pressure hydrocephalus is considered less likely. Patient in the emergency room received ceftriaxone, several boluses of normal saline. Started on a propofol after intubation. Also with seizure control 01/23/2021 the patient remains in intensive care unit, on BiPAP throughout the day The patient's had diffuse breath and pulmonary infiltrates patient was found to have Pseudomonas in her sputum. Interstitial edema and fluid overload was suspected and the patient was given a total of 80 mg IV Lasix yesterday and the patient is a negative fluid balance of 80 mL over the past 24 hours. A follow- up chest x-ray was done today shows some improvement in the volume status and infiltration with discussed earlier. There is however still some patchy by the pulmonary infiltrates throughout the lung huynh bilaterally. She is tolerating her BiPAP without any major difficulties. She is using a fullface mask. Note that she has also history of obstructive sleep apnea and she is using using bypass. The white cell count is at 7 with a hemoglobin of 9 .4 and a platelet of 119. Normal renal function. TSH is at 4.5. She remains on IV cefepime regarding the Pseudomonas in her lungs. The cardiac rhythm is sinus and the patient is on long-term anticoagulation with Eliquis for now. She is on no pressors. IV fluids are currently at KVO. She is receiving enteral feeding for nutritional support. The patient is receiving vital AF at the rate of 45 mL an hour. She is also receiving some standard water flushes through her PEG tube. Plan is to continue with BiPAP support on and off during the day; patient will receive Lasix 40 mg IV twice a day for next 24 hours; remains on IV cefepime; continue with Depakote and Keppra for seizure control 01/24/2021, patient is seen and evaluated in follow-up in the intensive care unit. The patient is currently off the BiPAP; on oxygen at 6 L per minute nasal cannula; overnight she was placed back on the BiPAP and she is back on 6 L of oxygen by nasal cannula. chest x-rays revealed consolidation left upper lobe. The patient has been a negative fluid balance; receiving IV Lasix and she has been at least 3-4 L negative over the past 2 days. She is making excellent urin e output. Remains on enteral feeding for nutritional support via PEG tube. She is receiving vital AF at the rate of 45 mL an hour. She has not had a bowel movement yet. She remains on IV cefepime regarding the pseudomonal growth in her urine and in her lungs. There may be a superimposed pneumonia with Pseudomonas on top of her excessive fluid overload and possibly component of CHF. Objective - Vital Signs Vital signs: Vital Signs Temp 98.3 F 01/24/21 08:00 Pulse 92 01/24/21 09:00 Resp 26 H 01/24/21 09:00 BP 61/34 01/22/21 22:00 Pulse Ox 96 01/24/21 09:00 Intake & Output 01/23/21 01/24/21 01/24/21 18:59 06:59 18:59 Intake Total 846 538 231 Output Total 1830 1695 120 Balance -984 -1157 111 Weight 67.2 kg Intake: IV 156 73 21 0.9 NS 45 55 15 Cefepime 2 gm In Sodium 75 Chloride 0.9% 100 ml @ 25 mls/hr IVPB Q12H [facility] Rx# :[id number] Pressure Bag 36 18 6 Tube Feeding 660 405 180 Other 30 60 30 Output: Urine 1830 1695 120 Other: Voiding Method Indwelling Catheter Indwelling Catheter Indwelling Catheter ABP, PAP, CO, CI - Last Documented Arterial Blood Pressure 118/44 - Exam -GENERAL: The patient is intubated and sedated HEENT: Pupils are round and equally reacting to light. EOMI. No scleral icterus. No conjunctival pallor. Normocephalic, atraumatic. No pharyngeal erythema. No thyromegaly. CARDIOVASCULAR: S1 and S2 present. No murmurs, rubs, or gallops. PULMONARY: Chest is clear to auscultation, no wheezing or crackles. ABDOMEN: Soft, nontender, nondistended, normoactive bowel sounds. No palpable organomegaly. MUSCULOSKELETAL: No joint swelling or deformity. EXTREMITIES: No cyanosis, clubbing, or pedal edema. NEUROLOGICAL: Gross neurological examination did not reveal any focal deficits. SKIN: No rashes. No petechiae, exam is limited because patient clinical status for example intubation - Labs CBC & Chem 7: 01/24/21 04:38 01/24/21 04:38 Labs: Abnormal Lab Results - Last 24 Hours (Table) 01/23/21 01/23/21 01/23/21 Range/Units 11:27 17:22 17:36 RBC (3.80-5.40) m/uL Hgb (11.4-16.0) gm/dL Hct (34.0-46.0) % RDW (11.5-15.5) % Sodium (137-145) mmol/L Chloride (98-107) mmol/L Carbon Dioxide (22-30) mmol/L BUN (7-17) mg/dL Creatinine (0.52-1.04) mg/dL Glucose (74-99) mg/dL POC Glucose (mg/dL) 100 H 117 H 120 H (75-99) mg/dL Total Protein (6.3-8.2) g/dL Albumin (3.5-5.0) g/dL 01/23/21 01/24/21 01/24/21 Range/Units 23:31 04:38 04:38 RBC 3.23 L (3.80-5.40) m/uL Hgb 9.9 L (11.4-16.0) gm/dL Hct 29.3 L (34.0-46.0) % RDW 17.6 H (11.5-15.5) % Sodium 136 L (137-145) mmol/L Chloride 94 L (98-107) mmol/L Carbon Dioxide 35 H (22-30) mmol/L BUN 24 H (7-17) mg/dL Creatinine 0.42 L (0.52-1.04) mg/dL Glucose 108 H (74-99) mg/dL POC Glucose (mg/dL) 110 H (75-99) mg/dL Total Protein 5.5 L (6.3-8.2) g/dL Albumin 2.8 L (3.5-5.0) g/dL 01/24/21 Range/Units 06:18 RBC (3.80-5.40) m/uL Hgb (11.4-16.0) gm/dL Hct (34.0-46.0) % RDW (11.5-15.5) % Sodium (137-145) mmol/L Chloride (98-107) mmol/L Carbon Dioxide (22-30) mmol/L BUN (7-17) mg/dL Creatinine (0.52-1.04) mg/dL Glucose (74-99) mg/dL POC Glucose (mg/dL) 108 H (75-99) mg/dL Total Protein (6.3-8.2) g/dL Albumin (3.5-5.0) g/dL Microbiology - Last 24 Hours (Table) 01/18/21 19:38 Blood Culture - Preliminary Blood No Growth after 120 hours 01/18/21 19:38 Blood Culture - Preliminary Blood No Growth after 120 hours Assessment and Plan Assessment: Suspected breakthrough seizure Acute hypoxic respiratory failure, status post intubation Hypotension, improvement Acute urinary tract infection secondary to gram-negative bacilli Left lower lobe pneumonia secondary to gram-negative bacilli dementia History of atrial fibrillation History of asthma History of heart failure History of GERD History of hypertension History of hyperlipidemia History of mitral valve prolapse History of seizure disorder History of hypothyroidism History of Parkinson disease History of developmental delay which is mild History of schizoaffective disorder History of chronic anemia History of moderate aortic stenosis with preserved LV function at ejection fraction of 50-55% History of moderate pulmonary hypertension History of left buttock wound Plan: This is a pleasant 80 years old female who presents with seizure and respiratory failure status post intubation/extubation, currently kept on BiPAP Pulmonary/critical care consult, Neurology consult recommended Keppra continue with Depakote. Continue with iv thyroxine Continue cefepime although patient felt to have colonization of her sputum and urine her than infection or UTI. But we will keep the antibiotics for patient is hypothermic and lower dose to 1 g twice a day Wound team consult Labs and medication were reviewed.. Continue same treatment. Continue with symptomatic treatment. Resume home medication. Monitor lytes and vitals. DVT and GI prophylaxis. Further recommendations depends on the clinical course of the patient DVT prophylaxis: Subcutaneous heparin GI Prophylaxis: Ppi PT/OT: Pending Prognosis is guarded
[2021-01-24 17:04] LABS: Glucose,Whole Blood 133 mg/dL (75-99)
[2021-01-24] MEDS: LATANOPROST 0.005% OPHTH DROPS 2.5 ML BTL BOTH EYES SCH (20:45)
[2021-01-24] MEDS: MONTELUKAST 5 MG CHEWABLE PEG/G-TUBE SCH (20:45)
[2021-01-25 01:02] LABS: Glucose,Whole Blood 119 mg/dL (75-99)
[2021-01-25] MEDS: INSULIN ASPART (NovoLOG) 100 UNIT/ML VIAL SQ SCH ×4 (04:48→17:42)
[2021-01-25] MEDS: CEFEPIME 2 GM in SODIUM CHLORIDE 0.9% 100 ML IVPB SCH ×3 (04:49→21:31)
[2021-01-25 05:10] LABS: Glucose,Whole Blood 109 mg/dL (75-99)
[2021-01-25 05:17] LABS: Anisocytosis Slight; Basophils # (A) 0.1 k/uL (0-0.2); Basophils % (A) 1 %; Eosinophils # (A) 0.4 k/uL (0-0.7); Eosinophils % (A) 5 %; HGB 9.9 gm/dL (11.4-16.0); Lymphocytes # (A) 1.3 k/uL (1.0-4.8); Lymphocytes % (A) 13 %; MCH 31.1 pg (25.0-35.0); MCHC 34.3 g/dL (31.0-37.0); MCV 90.8 fL (80.0-100.0); Mean Platelet Volume 8.4; Monocytes # (A) 0.6 k/uL (0-1.0); Monocytes % (A) 7 %; Neutrophils # (A) 7.1 k/uL (1.3-7.7); Neutrophils % (A) 73 %; Platelet Count 244 k/uL (150-450); RDW 17.5 % (11.5-15.5); WBC 9.8 k/uL (3.8-10.6)
[2021-01-25 05:59] LABS: ALT 18 U/L (4-34); AST 28 U/L (14-36); African American GFR (CKD) >90 (>60 ml/min/1.73 sqM); Albumin 2.8 g/dL (3.5-5.0); Alkaline Phosphatase 111 U/L (38-126); Anion Gap 6 mmol/L; Blood Urea Nitrogen 30 mg/dL (7-17); Calcium 9.2 mg/dL (8.4-10.2); Carbon Dioxide 36 mmol/L (22-30); Chloride 95 mmol/L (98-107); Glucose 109 mg/dL (74-99); Non-African American GFR(CKD) >90 (>60 ml/min/1.73 sqM); Sodium 137 mmol/L (137-145); Total Bilirubin 0.2 mg/dL (0.2-1.3); Total Protein 5.4 g/dL (6.3-8.2)
[2021-01-25] MEDS: LEVOTHYROXINE IVP 100 MCG/5 ML VIAL IV SCH (06:24)
[2021-01-25] MEDS: FORMOTEROL FUMARATE 20 MCG/2 ML NEBU INHALATION SCH ×2 (07:20→19:41)
[2021-01-25] MEDS: BUDESONIDE 0.25 MG/2 ML NEBU INHALATION SCH ×2 (07:20→19:41)
[2021-01-25] MEDS: APIXABAN 2.5 MG TABLET PEG/G-TUBE SCH ×2 (08:20→21:28)
[2021-01-25] MEDS: risperiDONE 1 MG TAB PEG/G-TUBE SCH ×2 (08:20→21:28)
[2021-01-25] MEDS: ATORVASTATIN 10 MG TAB PEG/G-TUBE SCH (08:20)
[2021-01-25] MEDS: levETIRAcetam 500 MG TAB PEG/G-TUBE SCH ×2 (08:20→21:28)
[2021-01-25] MEDS: VALPROIC ACID ORAL SOLN 250 MG/5 ML CUP PEG/G-TUBE SCH ×2 (08:20→21:28)
[2021-01-25] MEDS: predniSONE 5 MG TAB PEG/G-TUBE SCH (08:21)
[2021-01-25] MEDS: PANTOPRAZOLE 40 MG/10 ML VIAL IV SCH (08:21)
[2021-01-25] MEDS: FUROSEMIDE 10 MG/ML 4 ML VIAL IV SCH (08:21)
--- NOTE | 2021-01-25 10:36 | P.PN ---
Subjective Progress Note Date: 01/25/21 Principal diagnosis: Altered mental status, due to breakthrough seizure, acute bilateral pneumonia This is a 80-year-old female patient, known to me from previous admissions, caleb contreras to have multiple medical problems and comorbidities most significant a history of dementia along with schizophrenia with Parkinson's disease was been essentially bedridden and she has a 24-hour caregiver at home. Recently, the patient has developed a stage IV sacral decub ulcer and the patient was in the hospital yesterday for a debridement procedure that was done and the patient was discharged home. Discharge, the patient was noted to have seizure activity at home. Note that she has history of seizures and she has been maintained on Depakote on outpatient basis. She was given all of her medications with a caregiver without any interruption. Her seizure lasted for few minutes and the patient was postictal. Apparently she was having tonic-clonic activity as documented by the emergency department team. The patient in the emergency was evaluated. Mentation was altered. She was having twitching in her tongue and mouth area and it was suspected that she was having ongoing seizure activity. For that reason, the patient was started on propofol and the patient was intubated and p laced on a mechanical ventilator for airway protection. Note that the patient apparently was having seizures in the past. She had to seizure activities back in October 2020. She sees a neurologist out of [facility]. She was seen by her neurologist recently and she has not skipped any of her Depakote doses. The patient was given a total of 1 mg Ativan in the emergency department. Her valproic acid level was at 92. The patient was seen by neurology today and the patient was given 1 g every 12 hours and the neurologist asked to continue the Depakote. CAT scan of the brain was done in the emergency department showed no acute abnormalities. No reported fever. No reported neck stiffness. No reported aspiration. The patient had a white cell count of 8.4 with a hemoglobin of 10.2. This morning, it out with this patient in intensive care unit. She was on a mechanical ventilator. She was an assist-control at the rate of 14 with tidal volume of 375 and FiO2 of 50% with a PEEP of 5. Blood gas showed a pH of 7.54 with a pCO2 of 34 and pO2 166. Chest patient was somewhat limited as the patient has significant Scoliosis of the thoracic spine. Nevertheless, there was no airspace disease or consolidation. ET tube was in a good location. The patient had no significant orotracheal secretions. The patient remains hemodynamically stable. She was given a total of 2 L of IV fluids in the emergency department and she did not require any pressors. Her cardiac rhythm was sinus all of the patient has history of atrial fibrillation and she is maintained on anticoagulation with Eliquis. She also has obstructive sleep apnea and this was severe with an AHI of 76 and she was placed on APAP on outpatient basis. There is a month her various other comorbidities. 01/20/2021 the patient is being seen in follow-up in the intensive care unit. The patient got extubated yesterday and currently she is on a BiPAP at a pressure of 10/5 cm of water with an FiO2 of 60%. She is arousable. She is generating tidal volumes in the 550 range with a respiratory rate of 20. The blood gases from today showed a pH of 7.37 with a pCO2 of 48 empiric of 103. She is calm and comfortable while being on a BiPAP. Note that the patient postextubation she was placed on a BiPAP knowing that she has also severe obstructive sleep apnea. Chest x-ray from today shows some residual atelectatic changes and left lower lobe. Otherwise no acute abnormalities have been noted. Overnight, no seizure activity has been noted. The patient is free of any seizures for now. A EEG was done yesterday that showed abnormal findings with slowing suggestive of some mild encephalopathy. Meanwhile, the patient remains on Keppra 500 mg twice a day through her PEG tube and she is also on valproic ac id syrup. TSH is down to 10.1. Free T4 is at 1.84. Rest of the electrolytes all stable for now. She is arousable. Brunson cath is in place. IV fluids are running at the rate of 75 mL an hour. 01/21/2021, I'm seeing this patient for a follow-up. Postextubation, the patient did well initially and she was doing well on a BiPAP and the patient was also able to transition to oxygen by nasal cannula. Nevertheless, over the past 24 hours and specially over the past 12 hours, the patient's condition has gotten worse. Repeat chest x-ray from this morning is showing bilateral pulmonary infiltrates, patchy, involving the left upper lobe and the right lower lobe. Sputum cultures collected earlier route returner to be positive for pseudomonas aeruginosa and the patient was started on IV cefepime. Currently she is on BiPAP at a pressure of 10/5 cm of water with an FiO2 of 50%. She is quite suggestive the BiPAP. Nevertheless, she does lethargic and she seems to be more lethargic compared to yesterday. She opens her eyes upon termination she is following only simple commands. Hemodynamically stable on no pressors. No seizure activity has been noted. She is receiving enteral feeding for n utritional support and the PEG tube is functional at this point in time. Her white cell count is at 7.7. Her blood gases was done and FiO2 of 60% while the patient being on a BiPAP at a pressure of 10/5 in the blood case with a pH of 7.41 with a pCO2 of 46 and a pO2 of 144. Her pro-calcitonin level is at 0.07. Note that pseudomonas aeruginosa was also cultured and the patient's urine. On 01/22/2021 patient seen in follow-up in the intensive care unit, she is still lethargic, appears to be no acute distress, she is still on BiPAP support with pressures of 10/5 and FiO2 of 60%. Her pulse ox is around 93-95%, she is afebrile, her breathing is a bit more labored today, she had a chest x-ray completed today which showed worsening bilateral infiltrates with the possibility of a layering pleural effusion. She was given a dose of IV Lasix this morning 40 mg IV push and she is diuresing profusely, her oxygenation had since improved from 88% to 93% on FiO2 of 60%. Patient seems to be responding nicely to IV Lasix and she has been given an additional dose of 40 of Lasix this afternoon. She remains on cefepime for antibiotic coverage, her sputum and urine cultures were both positive for pseudomonas aeruginosa. Afebrile overnight, not requiring any vasopressor support. She is on 0.9 normal saline at a rate of 20 ML per hour. He slept 7 reviewed, her white count is 8.2, hemoglobin is 9.5, electrolytes are within normal limits, BUN is 50 creatinine 0.36. Patient is tolerating tube feedings, she is receiving vital AF at 45 with a goal of 45 and standard water flushes. On 01/25/2021 patient seen in follow-up in intensive care unit, this morning she is a bit more lethargic compared to yesterday's exam, however she is verbally responding, although she is confused. She is following basic commands. Denies any acute distress, she is currently off BiPAP support, currently on 4 L of oxygen her pulse ox is 92%, hemodynamically she is a bit hypotensive on today's vitals, with short in the 70s over 50s. After recycling the blood pressure cuff blood pressure is 85/81. Clinically patient although slightly somnolent, but she is warm and dry, she is on IV diuretics with Lasix 40 mg once daily, 0.4 L in the urine output in last 24 hours. No new chest x-ray today, no worsening dyspnea, diminished lung sounds at the bases, no wheezes or rhonchi. Patient remains on cefepime for evidence of Pseudomonas in her sputum and urine cultures. She's had no fever or chills. Patient is tolerating PEG tube feedings, she is currently receiving vital AF at 45 with a goal of 45 and standard water flushes. Abdomen is soft, however patient has not had a bowel movement in several days. Labs have been reviewed showing white blood cell count of 9.8, hemoglobin is 9.9, sodium is 137, potassium is 4.0, chloride is 95, CO2 36, BUN is 30, creatinine 0.48, LFTs are within normal limits Objective - Vital Signs Vital signs: Vital Signs Temp 96.7 F L 01/25/21 08:00 Pulse 89 01/25/21 09:00 Resp 30 H 01/25/21 09:00 BP 89/56 01/25/21 09:00 Pulse Ox 93 L 01/25/21 09:00 Intake & Output 01/24/21 01/25/21 01/25/21 18:59 06:59 18:59 Intake Total 907 603 143 Output Total 995 430 155 Balance -88 173 -12 Weight 66.1 kg Intake: IV 187 78 28 0.9 NS 60 60 25 Cefepime 2 gm In Sodium 100 Chloride 0.9% 100 ml @ 25 mls/hr IVPB Q12H [facility] Rx# :[id number] Pressure Bag 27 18 3 Tube Feeding 630 495 55 Other 90 30 60 Output: Urine 995 430 155 Other: Voiding Method Indwelling Catheter Indwelling Catheter Indwelling Catheter ABP, PAP, CO, CI - Last Documented Arterial Blood Pressure 122/41 - Exam Calm and comfortable, the patient is resting comfortably BiPAP, and on 4 L of oxygen with pulse ox of 93%. She is arousable. She is lethargic, but easily arousable to verbal stimulation, she is providing some simple verbal responses, she is confused, she is mostly repeating questions, following basic commands Head exam was generally normal. There was no scleral icterus or corneal arcus. Mucous membranes were moist. Neck was supple and without jugular venous distension, thyromegaly, or carotid bruits. Carotids were easily palpable bilaterally. There was no adenopathy. Orogastric and aortic tube are both in place. Lungs are diminished and the patient is on obvious thoracic and thoracolumbar kyphoscoliosis with cervical kyphosis. Rest of the equal and symmetrical. No wheezes or rhonchi. Cardiac exam revealed the PMI to be normally situated and sized. The rhythm was regular and no extrasystoles were noted during several minutes of auscultation. The first and second heart sounds were normal and physiologic splitting of the second heart sound was noted. There were systolic ejection murmur consistent with aortic stenosis , rubs, clicks, or gallops. Abdominal exam revealed normal bowel sounds. The abdomen was soft, non-tender, and without masses, organomegaly, or appreciable enlargement of the abdominal aorta. The patient is a PEG tube in place and the PEG tube site is dry clean and intact and there is no direct tenderness or rebound tensile guarding. Bowel sounds are hypoactive at the present Examination of the extremities revealed easily palpable radial, femoral and peda l pulses. There was no cyanosis, clubbing or edema. Examination of the skin revealed no evidence of significant rashes, suspicious appearing nevi or other concerning lesions. 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 Neurologically the patient is following some simple commands. No focal neurological deficit. She is currently off propofol. - Labs CBC & Chem 7: 01/25/21 05:04 01/25/21 05:04 Labs: Abnormal Lab Results - Last 24 Hours (Table) 01/24/21 01/24/21 01/25/21 Range/Units 11:40 17:03 01:01 RBC (3.80-5.40) m/uL Hgb (11.4-16.0) gm/dL Hct (34.0-46.0) % RDW (11.5-15.5) % Chloride (98-107) mmol/L Carbon Dioxide (22-30) mmol/L BUN (7-17) mg/dL Creatinine (0.52-1.04) mg/dL Glucose (74-99) mg/dL POC Glucose (mg/dL) 114 H 133 H 119 H (75-99) mg/dL Total Protein (6.3-8.2) g/dL Albumin (3.5-5.0) g/dL 01/25/21 01/25/21 01/25/21 Range/Units 05:04 05:04 05:07 RBC 3.20 L (3.80-5.40) m/uL Hgb 9.9 L (11.4-16.0) gm/dL Hct 29.0 L (34.0-46.0) % RDW 17.5 H (11.5-15.5) % Chloride 95 L (98-107) mmol/L Carbon Dioxide 36 H (22-30) mmol/L BUN 30 H (7-17) mg/dL Creatinine 0.48 L (0.52-1.04) mg/dL Glucose 109 H (74-99) mg/dL POC Glucose (mg/dL) 109 H (75-99) mg/dL Total Protein 5.4 L (6.3-8.2) g/dL Albumin 2.8 L (3.5-5.0) g/dL Microbiology - Last 24 Hours (Table) 01/18/21 19:38 Blood Culture - Final Blood No Growth after 144 hours 01/18/21 19:38 Blood Culture - Final Blood No Growth after 144 hours Assessment and Plan Plan: 1 altered mentation secondary to breakthrough seizure and the patient with known history of epilepsy was maintained on Depakote on outpatient basis. The patient is currently free of any seizures maintained on a combination of Keppra and valproic acid. 2 acute bilateral pneumonia, consider hospital-acquired pneumonia with pseudomonas aeruginosa. Initial chest x-ray was clear during the current hospitalization and post extubation the patient developed bilateral cons olidation consistent with pseudomonal pneumonia and the patient is currently on IV cefepime. 3 acute hypoxic respiratory failure. The patient recovered from respiratory failure initially the patient was extubated successfully. Subsequently she developed bilateral pneumonia secondary to pseudomonas aeruginosa and currently on BiPAP at pressure of 10/5 and FiO2 of 50%. Blood gases was noted and the patient is currently on IV cefepime. 4 dementia 5 Parkinson's disease, mild developmental delay 6 schizoaffective disorder 7 history of epilepsy 8 history of moderate degree of aortic stenosis and the patient has an obvious cardiac murmur on examination. Based on previous echocardiogram, ejection fraction was around 50-55% and the patient has moderate degree of pulmonary hypertension 9 stage IV left buttocks ulcers post-debridement without evidence of any acute infection. 10 esophageal stricture and the patient has a PEG tube in place for enteral feeding and nutritional support 11 abnormal gait due to our concern is and then dementia and the patient is wheelchair-bound and the patient has a caregiver at all 24 7 12 history approximately atrial fibrillation current rhythm is sinus 13 hypertension 14 hyperlipidemia 15 previous history of pneumonia and respiratory failure requiring prolonged hospitalization mechanical ventilation 16 history of recurrent UTIs, urine cultures is indicating Pseudomonas in her jaws and the patient is currently on IV cefepime.17 hypothyroidism 18 obstructive sleep apnea with an AHI of 78 maintained on a Pap on outpatient basis Plan: Discontinue Lasix Patient developed slight hypotension, but clinically she remains stable Follow-up chest x-ray tomorrow Follow-up labs, electrolytes and renal profile tomorrow Continue same antibiotics Oxygenating well, maintaining stable oxygen saturations on a few liters of supplemental oxygen Suppositories and lactulose for constipation Continue to follow I performed a history & physical examination of the patient and discussed their management with my nurse practitioner, Elsy De Guzman. I reviewed the nurse practitioner's note and agree with the documented findings and plan of care. Lung sounds are positive for diffuse wheezes throughout the lung huynh. The findings and the impression was discussed with the patient. I attest to the documentation by the nurse practitioner. Time with Patient: Less than 30
[2021-01-25 11:41] LABS: Glucose,Whole Blood 118 mg/dL (75-99)
[2021-01-25] MEDS ORDERED: bisacodyL 10 MG SUPP RECTAL STA (13:08)
[2021-01-25 17:43] LABS: Glucose,Whole Blood 123 mg/dL (75-99)
[2021-01-25] MEDS: MONTELUKAST 5 MG CHEWABLE PEG/G-TUBE SCH (21:28)
[2021-01-25] MEDS: LATANOPROST 0.005% OPHTH DROPS 2.5 ML BTL BOTH EYES SCH (22:11)
[2021-01-25 23:51] LABS: Glucose,Whole Blood 110 mg/dL (75-99)
[2021-01-26] MEDS: INSULIN ASPART (NovoLOG) 100 UNIT/ML VIAL SQ SCH ×4 (00:27→18:12)
[2021-01-26 05:19] LABS: Glucose,Whole Blood 111 mg/dL (75-99)
[2021-01-26] MEDS: CEFEPIME 2 GM in SODIUM CHLORIDE 0.9% 100 ML IVPB SCH ×3 (05:33→23:41)
[2021-01-26] MEDS: LEVOTHYROXINE IVP 100 MCG/5 ML VIAL IV SCH ×2 (05:33→13:52)
[2021-01-26] MEDS: BUDESONIDE 0.25 MG/2 ML NEBU INHALATION SCH ×2 (07:56→19:36)
[2021-01-26] MEDS: FORMOTEROL FUMARATE 20 MCG/2 ML NEBU INHALATION SCH ×2 (07:57→19:35)
[2021-01-26] MEDS: PANTOPRAZOLE 40 MG/10 ML VIAL IV SCH (09:36)
[2021-01-26] MEDS: FUROSEMIDE 20 MG TAB PO SCH (09:37)
[2021-01-26] MEDS: APIXABAN 2.5 MG TABLET PEG/G-TUBE SCH ×2 (09:37→21:35)
[2021-01-26] MEDS: levETIRAcetam 500 MG TAB PEG/G-TUBE SCH ×2 (09:37→21:41)
[2021-01-26] MEDS: ATORVASTATIN 10 MG TAB PEG/G-TUBE SCH (09:37)
[2021-01-26] MEDS: VALPROIC ACID ORAL SOLN 250 MG/5 ML CUP PEG/G-TUBE SCH ×2 (09:38→21:36)
[2021-01-26] MEDS: risperiDONE 1 MG TAB PEG/G-TUBE SCH ×2 (09:38→21:36)
[2021-01-26] MEDS: predniSONE 5 MG TAB PEG/G-TUBE SCH (09:39)
--- NOTE | 2021-01-26 09:48 | XR ---
EXAMINATION TYPE: XR chest 1V portable DATE OF EXAM: 01/26/2021 COMPARISON: 01/24/2021 HISTORY: Shortness of breath TECHNIQUE: Single frontal view of the chest is obtained. FINDINGS: Bilateral infiltrate and pleural effusion with cardiomegaly and interstitial pattern. No p neumothorax. Atherosclerotic change aorta. Diffuse osteopenia. Arthropathy of the shoulders. IMPRESSION: Bilateral infiltrate and pleural effusion correlate for diffuse pneumonia versus CHF. Fi ndings slightly progressed on the right..
[2021-01-26 10:09] LABS: African American GFR (CKD) >90 (>60 ml/min/1.73 sqM); Anion Gap 5 mmol/L; Blood Urea Nitrogen 36 mg/dL (7-17); Calcium 9.3 mg/dL (8.4-10.2); Carbon Dioxide 33 mmol/L (22-30); Chloride 101 mmol/L (98-107); Glucose 111 mg/dL (74-99); Non-African American GFR(CKD) >90 (>60 ml/min/1.73 sqM); Potassium 4.2 mmol/L (3.5-5.1); Sodium 139 mmol/L (137-145)
[2021-01-26 10:50] LABS: Anisocytosis Slight; HCT 32.2 % (34.0-46.0); HGB 10.7 gm/dL (11.4-16.0); MCH 30.6 pg (25.0-35.0); MCHC 33.2 g/dL (31.0-37.0); MCV 92.1 fL (80.0-100.0); Mean Platelet Volume 6.8; Platelet Count 260 k/uL (150-450); RBC 3.49 m/uL (3.80-5.40); RDW 17.1 % (11.5-15.5); WBC 9.3 k/uL (3.8-10.6)
[2021-01-26 11:45] LABS: Glucose,Whole Blood 124 mg/dL (75-99)
[2021-01-26 12:43] LABS: Eosinophils # (M) 0.47 k/uL (0-0.7); Lymphocytes # (M) 1.21 k/uL (1.0-4.8); Metamyelocytes # (M) 0.28 k/uL (0); Metamyelocytes % 3 %; Monocytes # (M) 0.65 k/uL (0-1.0); Myelocytes # (M) 0.19 k/uL (0); Myelocytes % 2 %; Neutrophils % (M) 72 %; Nucleated Red Blood Cells 0 /100 WBC (0-0); Total Cells Counted 200
[2021-01-26 12:44] LABS: Poikilocytosis (M) Present; Polychromasia Present
--- NOTE | 2021-01-26 12:45 | P.PN ---
Subjective Progress Note Date: 01/26/21 Principal diagnosis: Altered mental status, due to breakthrough seizure, acute bilateral pneumonia This is a 80-year-old female patient, known to me from previous admissions, kn own to have multiple medical problems and comorbidities most significant a history of dementia along with schizophrenia with Parkinson's disease was been essentially bedridden and she has a 24-hour caregiver at home. Recently, the patient has developed a stage IV sacral decub ulcer and the patient was in the hospital yesterday for a debridement procedure that was done and the patient was discharged home. Discharge, the patient was noted to have seizure activity at home. Note that she has history of seizures and she has been maintained on Depakote on outpatient basis. She was given all of her medications with a caregiver without any interruption. Her seizure lasted for few minutes and the patient was postictal. Apparently she was having tonic-clonic activity as documented by the emergency department team. The patient in the emergency was evaluated. Mentation was altered. She was having twitching in her tongue and mouth area and it was suspected that she was having ongoing seizure activity. For that reason, the patient was started on propofol and the patient was intubated and placed on a mechanical ventilator for airway protection. Note that the patient apparently was having seizures in the past. She had to seizure activities back in October 2020. She sees a neurologist out of [facility]. She was seen by her neurologist recently and she has not skipped any of her Depakote doses. The patient was given a total of 1 mg Ativan in the emergency department. Her v alproic acid level was at 92. The patient was seen by neurology today and the patient was given 1 g every 12 hours and the neurologist asked to continue the Depakote. CAT scan of the brain was done in the emergency department showed no acute abnormalities. No reported fever. No reported neck stiffness. No reported aspiration. The patient had a white cell count of 8.4 with a hemoglobin of 10.2. This morning, it out with this patient in intensive care unit. She was on a mechanical ventilator. She was an assist-control at the rate of 14 with tidal volume of 375 and FiO2 of 50% with a PEEP of 5. Blood gas showed a pH of 7.54 with a pCO2 of 34 and pO2 166. Chest patient was somewhat limited as the patient has significant Scoliosis of the thoracic spine. Nevertheless, there was no airspace disease or consolidation. ET tube was in a good location. The patient had no significant orotracheal secretions. The patient remains hemodynamically stable. She was given a total of 2 L of IV fluids in the emergency department and she did not require any pressors. Her cardiac rhythm was sinus all of the patient has history of atrial fibrillation and she is maintained on anticoagulation with Eliquis. She also has obstructive sleep apnea and this was severe with an AHI of 76 and she was placed on APAP on outpatient basis. There is a month her various other comorbidities. 01/20/2021 the patient is being seen in follow-up in the intensive care unit. The patient got extubated yesterday and currently she is on a BiPAP at a pressure of 10/5 cm of water with an FiO2 of 60%. She is arousable. She is generating tidal volumes in the 550 range with a respiratory rate of 20. The bl ood gases from today showed a pH of 7.37 with a pCO2 of 48 empiric of 103. She is calm and comfortable while being on a BiPAP. Note that the patient postextubation she was placed on a BiPAP knowing that she has also severe obstructive sleep apnea. Chest x-ray from today shows some residual atelectatic changes and left lower lobe. Otherwise no acute abnormalities have been noted. Overnight, no seizure activity has been noted. The patient is free of any seizures for now. A EEG was done yesterday that showed abnormal findings with slowing suggestive of some mild encephalopathy. Meanwhile, the patient remains on Keppra 500 mg twice a day through her PEG tube and she is also on valproic a allen syrup. TSH is down to 10.1. Free T4 is at 1.84. Rest of the electrolytes all stable for now. She is arousable. Brunson cath is in place. IV fluids are running at the rate of 75 mL an hour. 01/21/2021, I'm seeing this patient for a follow-up. Postextubation, the patient did well initially and she was doing well on a BiPAP and the patient was also able to transition to oxygen by nasal cannula. Nevertheless, over the past 24 hours and specially over the past 12 hours, the patient's condition has gotten worse. Repeat chest x-ray from this morning is showing bilateral pulmonary infiltrates, patchy, involving the left upper lobe and the right lower lobe. Sputum cultures collected earlier layout mechanic to be positive for pseudomonas aeruginosa and the patient was started on IV cefepime. Currently she is on BiPAP at a pressure of 10/5 cm of water with an FiO2 of 50%. She is quite sugge stive the BiPAP. Nevertheless, she does lethargic and she seems to be more lethargic compared to yesterday. She opens her eyes upon termination she is following only simple commands. Hemodynamically stable on no pressors. No seizure activity has been noted. She is receiving enteral feeding for nutritional support and the PEG tube is functional at this point in time. Her white cell count is at 7.7. Her blood gases was done and FiO2 of 60% while the patient being on a BiPAP at a pressure of 10/5 in the blood case with a pH of 7.41 with a pCO2 of 46 and a pO2 of 144. Her pro-calcitonin level is at 0.07. Note that pseudomonas aeruginosa was also cultured and the patient's urine. On 01/22/2021 patient seen in follow-up in the intensive care unit, she is still lethargic, appears to be no acute distress, she is still on BiPAP support with pressures of 10/5 and FiO2 of 60%. Her pulse ox is around 93-95%, she is afebrile, her breathing is a bit more labored today, she had a chest x-ray completed today which showed worsening bilateral infiltrates with the possibility of a layering pleural effusion. She was given a dose of IV Lasix this morning 40 mg IV push and she is diuresing profusely, her oxygenation had since improved from 88% to 93% on FiO2 of 60%. Patient seems to be responding nicely to IV Lasix and she has been given an additional dose of 40 of Lasix this afternoon. She remains on cefepime for antibiotic coverage, her sputum and urine cultures were both positive for pseudomonas aeruginosa. Afebrile overnight, not requiring any vasopressor support. She is on 0.9 normal saline at a rate of 20 ML per hour. He slept 7 reviewed, her white count is 8.2, hemoglobin is 9.5, electrolytes are within normal limits, BUN is 50 creatinine 0.36. Patient is tolerating tube feedings, she is receiving vital AF at 45 with a goal of 45 and standard water flushes. On 01/25/2021 patient seen in follow-up in intensive care unit, this morning she is a bit more lethargic compared to yesterday's exam, however she is verbally responding, although she is confused. She is following basic commands. Denies any acute distress, she is currently off BiPAP support, currently on 4 L of oxygen her pulse ox is 92%, hemodynamically she is a bit hypotensive on today's vitals, with short in the 70s over 50s. After recycling the blood pressure cuff blood pressure is 85/81. Clinically patient although slightly somnolent, but she is warm and dry, she is on IV diuretics with Lasix 40 mg once daily, 0.4 L in the urine output in last 24 hours. No new chest x-ray today, no worsening dyspnea, diminished lung sounds at the bases, no wheezes or rhonchi. Patient remains on cefepime for evidence of Pseudomonas in her sputum and urine cultures. She's had no fever or chills. Patient is tolerating PEG tube feedings, she is currently receiving vital AF at 45 with a goal of 45 and standard water flushes. Abdomen is soft, however patient has not had a bowel movement in several days. Labs have been reviewed showing white blood cell count of 9.8, hemoglobin is 9.9, sodium is 137, potassium is 4.0, chloride is 95, CO2 36, BUN is 30, creatinine 0.48, LFTs are within normal limits The patient is seen today 01/26/2021 in follow-up in the intensive care unit. She is more awake and alert today. Opening her eyes and around. Answering some simple questions appropriately. She did wear her BiPAP 10/5 and 60% FiO2. Currently on 6 L high flow nasal cannula and maintaining O2 saturations in the 90s. His x-ray continues to show bilateral infiltrate with small pleural effusi ons. Sputum and urine cultures positive for pseudomonas aeruginosa. White count 9.3. Hemoglobin 10.7. Sodium 139. Potassium 4.2. Creatinine 0.49. She remains on cefepime. Continued on bronchodilators. Remains on diuretics. Anticoagulated with Eliquis. Continued on her anticonvulsants. She is being nourished with vital AF at 45 ML's per hour which is goal via PEG tube feedings with free water flushes. Abdomen remains soft. No seizure activity. Objective - Vital Signs Vital signs: Vital Signs Temp 98.1 F 01/26/21 08:00 Pulse 81 01/26/21 09:00 Resp 32 H 01/26/21 09:00 BP 99/27 01/26/21 09:00 Pulse Ox 929 H 01/26/21 09:00 Intake & Output 01/25/21 01/26/21 01/26/21 18:59 06:59 18:59 Intake Total 823 760 470 Output Total 1305 625 370 Balance -482 135 100 Weight 66.1 kg 64 kg Intake: IV 198 130 15 0.9 NS 195 130 15 Pressure Bag 3 Intake, IV Titration 200 Amount Cefepime 2 gm In Sodium 200 Chloride 0.9% 100 ml @ 25 mls/hr IVPB Q8H [facility] Rx#: [id number] Tube Feeding 505 540 225 Other 120 90 30 Output: Urine 1305 625 370 Other: Voiding Method Indwelling Catheter Indwelling Catheter Indwelling Catheter # Bowel Movements 1 ABP, PAP, CO, CI - Last Documented Arterial Blood Pressure 122/41 - Exam A pleasant 80-year-old female patient currently resting comfortably on continue with BiPAP and 6 L high flow nasal cannula. She is arousable. She is lethargic, but easily arousable to verbal stimulation, she is providing some simple verbal responses, she is confused, she is mostly repeating questions, following basic commands Head exam was generally normal. There was no scleral icterus or corneal arcus. Mucous membranes were moist. Neck was supple and without jugular venous distension, thyromegaly, or carotid bruits. Carotids were easily palpable bilaterally. There was no adenopathy. Lungs are diminished and the patient is on obvious thoracic and thoracolumbar kyphoscoliosis with cervical kyphosis. Rest of the equal and symmetrical. No wheezes or rhonchi. Cardiac exam revealed the PMI to be normally situated and sized. The rhythm was regular and no extrasystoles were noted during several minutes of auscultation. The first and second heart sounds were normal and physiologic splitting of the second heart sound was noted. There were systolic ejection murmur consistent with aortic stenosis , rubs, clicks, or gallops. Abdominal exam revealed normal bowel sounds. The abdomen was soft, non-tender, and without masses, organomegaly, or appreciable enlargement of the abdominal aorta. The patient is a PEG tube in place and the PEG tube site is dry clean and intact and there is no direct tenderness or rebound tensile guarding. Bowel sounds are hypoactive at the present Examination of the extremities revealed easily palpable radial, femoral and pedal pulses. There was no cyanosis, clubbing or edema. Examination of the skin revealed no evidence of significant rashes, suspicious appearing nevi or other concerning lesions. 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 Neurologically the patient is following some simple commands. No focal neurological deficit. She is currently off propofol. - Labs CBC & Chem 7: 01/26/21 09:38 01/26/21 09:38 Labs: Abnormal Lab Results - Last 24 Hours (Table) 01/25/21 01/25/21 01/26/21 Range/Units 17:42 23:49 05:17 RBC (3.80-5.40) m/uL Hgb (11.4-16.0) gm/dL Hct (34.0-46.0) % RDW (11.5-15.5) % Carbon Dioxide (22-30) mmol/L BUN (7-17) mg/dL Creatinine (0.52-1.04) mg/dL Glucose (74-99) mg/dL POC Glucose (mg/dL) 123 H 110 H 111 H (75-99) mg/dL 01/26/21 01/26/21 01/26/21 Range/Units 09:38 09:38 11:43 RBC 3.49 L (3.80-5.40) m/uL Hgb 10.7 L (11.4-16.0) gm/dL Hct 32.2 L (34.0-46.0) % RDW 17.1 H (11.5-15.5) % Carbon Dioxide 33 H (22-30) mmol/L BUN 36 H (7-17) mg/dL Creatinine 0.49 L (0.52-1.04) mg/dL Glucose 111 H (74-99) mg/dL POC Glucose (mg/dL) 124 H (75-99) mg/dL Assessment and Plan Assessment: 1 altered mentation secondary to breakthrough seizure and the patient with known history of epilepsy was maintained on Depakote on outpatient basis. The patient is currently free of any seizures maintained on a combination of Keppra and valproic acid. 2 acute bilateral pneumonia, consider hospital-acquired pneumonia with pseudomonas aeruginosa. Initial chest x-ray was clear during the current hospitalization and post extubation the patient developed bilateral consolidation consistent with pseudomonal pneumonia and the patient is currently on IV cefepime. 3 acute hypoxic respiratory failure. The patient recovered from respiratory failure initially the patient was extubated successfully. Subsequently she developed bilateral pneumonia secondary to pseudomonas aeruginosa and currently on BiPAP at pressure of 10/5 and FiO2 of 60% alternating with oxygen 6 L high flow nasal cannula. Blood gases was noted and the patient is currently on IV cefepime. 4 dementia 5 Parkinson's disease, mild developmental delay 6 schizoaffective disorder 7 history of epilepsy 8 history of moderate degree of aortic stenosis and the patient has an obvious cardiac murmur on examination. Based on previous echocardiogram, ejection fraction was around 50-55% and the patient has moderate degree of pulmonary hypertension 9 stage IV left buttocks ulcers post-debridement without evidence of any acute infection. 10 esophageal stricture and the patient has a PEG tube in place for enteral feeding and nutritional support 11 abnormal gait due to our concern is and then dementia and the patient is wheelchair-bound and the patient has a caregiver at all 24 7 12 history approximately atrial fibrillation current rhythm is sinus 13 hypertension 14 hyperlipidemia 15 previous history of pneumonia and respiratory failure requiring prolonged hospitalization mechanical ventilation 16 history of recurrent UTIs, urine cultures is indicating Pseudomonas in her jaws and the patient is curren tly on IV cefepime.17 hypothyroidism 18 obstructive sleep apnea with an AHI of 78 maintained on a Pap on outpatient basis Plan: The patient was seen and evaluated by Dr. Lilly Chest x-ray and labs reviewed To have caregivers bring in her home BiPAP device Continue IV cefepime We will continue to follow I, the cosigning physician, performed a history & physical examination of the patient. Lungs sounds are clear, diminished. Maintaining good O2 saturations in the 90s on 6 L high flow nasal cannula, alternating with BiPAP. I discussed the assessment and plan of care with my nurse practitioner, Rica Thomas. I attest to the above note as dictated by her.
[2021-01-26] MEDS: FUROSEMIDE 10 MG/ML 4 ML VIAL IV SCH (13:50)
[2021-01-26] MEDS: CHLORHEXIDINE GLUCONATE 15 ML CUP MUCOUS MEM SCH (13:51)
[2021-01-26 18:12] LABS: Glucose,Whole Blood 133 mg/dL (75-99)
[2021-01-26] MEDS: LATANOPROST 0.005% OPHTH DROPS 2.5 ML BTL BOTH EYES SCH (21:35)
[2021-01-26] MEDS: MONTELUKAST 5 MG CHEWABLE PEG/G-TUBE SCH (21:36)
[2021-01-27 00:15] LABS: Glucose,Whole Blood 112 mg/dL (75-99)
[2021-01-27 04:07] LABS: Anisocytosis Slight; Basophils # (A) 0.1 k/uL (0-0.2); Basophils % (A) 1 %; Eosinophils # (A) 0.4 k/uL (0-0.7); Eosinophils % (A) 3 %; HCT 34.6 % (34.0-46.0); HGB 10.8 gm/dL (11.4-16.0); Hypochromasia Slight; Lymphocytes # (A) 1.9 k/uL (1.0-4.8); Lymphocytes % (A) 15 %; MCH 29.4 pg (25.0-35.0); MCHC 31.2 g/dL (31.0-37.0); MCV 94.1 fL (80.0-100.0); Mean Platelet Volume 7.9; Monocytes % (A) 8 %; Neutrophils # (A) 9.2 k/uL (1.3-7.7); Neutrophils % (A) 71 %; Platelet Count 201 k/uL (150-450); RBC 3.68 m/uL (3.80-5.40); RDW 16.7 % (11.5-15.5); WBC 12.9 k/uL (3.8-10.6)
[2021-01-27 04:30] LABS: African American GFR (CKD) >90 (>60 ml/min/1.73 sqM); Anion Gap 7 mmol/L; Blood Urea Nitrogen 38 mg/dL (7-17); Carbon Dioxide 28 mmol/L (22-30); Chloride 102 mmol/L (98-107); Glucose 119 mg/dL (74-99); Non-African American GFR(CKD) >90 (>60 ml/min/1.73 sqM); Sodium 137 mmol/L (137-145)
[2021-01-27 04:38] LABS: Potassium 5.7 mmol/L (3.5-5.1)
[2021-01-27 06:44] LABS: Glucose,Whole Blood 130 mg/dL (75-99)
[2021-01-27] MEDS: INSULIN ASPART (NovoLOG) 100 UNIT/ML VIAL SQ SCH ×4 (06:48→19:42)
[2021-01-27] MEDS: CEFEPIME 2 GM in SODIUM CHLORIDE 0.9% 100 ML IVPB SCH ×3 (06:54→20:58)
[2021-01-27] MEDS: LEVOTHYROXINE IVP 100 MCG/5 ML VIAL IV SCH (06:54)
--- NOTE | 2021-01-27 08:34 | P.PN ---
Subjective Progress Note Date: 01/27/21 Principal diagnosis: Altered mental status, due to breakthrough seizure, acute bilateral pneumonia This is a 80-year-old female patient, known to me from previous admissions, caleb contreras to have multiple medical problems and comorbidities most significant a history of dementia along with schizophrenia with Parkinson's disease was been essentially bedridden and she has a 24-hour caregiver at home. Recently, the patient has developed a stage IV sacral decub ulcer and the patient was in the hospital yesterday for a debridement procedure that was done and the patient was discharged home. Discharge, the patient was noted to have seizure activity at home. Note that she has history of seizures and she has been maintained on Depakote on outpatient basis. She was given all of her medications with a caregiver without any interruption. Her seizure lasted for few minutes and the patient was postictal. Apparently she was having tonic-clonic activity as documented by the emergency department team. The patient in the emergency was evaluated. Mentation was altered. She was having twitching in her tongue and mouth area and it was suspected that she was having ongoing seizure activity. For that reason, the patient was started on propofol and the patient was intubated and p laced on a mechanical ventilator for airway protection. Note that the patient apparently was having seizures in the past. She had to seizure activities back in October 2020. She sees a neurologist out of [facility]. She was seen by her neurologist recently and she has not skipped any of her Depakote doses. The patient was given a total of 1 mg Ativan in the emergency department. Her valproic acid level was at 92. The patient was seen by neurology today and the patient was given 1 g every 12 hours and the neurologist asked to continue the Depakote. CAT scan of the brain was done in the emergency department showed no acute abnormalities. No reported fever. No reported neck stiffness. No reported aspiration. The patient had a white cell count of 8.4 with a hemoglobin of 10.2. This morning, it out with this patient in intensive care unit. She was on a mechanical ventilator. She was an assist-control at the rate of 14 with tidal volume of 375 and FiO2 of 50% with a PEEP of 5. Blood gas showed a pH of 7.54 with a pCO2 of 34 and pO2 166. Chest patient was somewhat limited as the patient has significant Scoliosis of the thoracic spine. Nevertheless, there was no airspace disease or consolidation. ET tube was in a good location. The patient had no significant orotracheal secretions. The patient remains hemodynamically stable. She was given a total of 2 L of IV fluids in the emergency department and she did not require any pressors. Her cardiac rhythm was sinus all of the patient has history of atrial fibrillation and she is maintained on anticoagulation with Eliquis. She also has obstructive sleep apnea and this was severe with an AHI of 76 and she was placed on APAP on outpatient basis. There is a month her various other comorbidities. 01/20/2021 the patient is being seen in follow-up in the intensive care unit. The patient got extubated yesterday and currently she is on a BiPAP at a pressure of 10/5 cm of water with an FiO2 of 60%. She is arousable. She is generating tidal volumes in the 550 range with a respiratory rate of 20. The blood gases from today showed a pH of 7.37 with a pCO2 of 48 empiric of 103. She is calm and comfortable while being on a BiPAP. Note that the patient postextubation she was placed on a BiPAP knowing that she has also severe obstructive sleep apnea. Chest x-ray from today shows some residual atelectatic changes and left lower lobe. Otherwise no acute abnormalities have been noted. Overnight, no seizure activity has been noted. The patient is free of any seizures for now. A EEG was done yesterday that showed abnormal findings with slowing suggestive of some mild encephalopathy. Meanwhile, the patient remains on Keppra 500 mg twice a day through her PEG tube and she is also on valproic ac id syrup. TSH is down to 10.1. Free T4 is at 1.84. Rest of the electrolytes all stable for now. She is arousable. Brunson cath is in place. IV fluids are running at the rate of 75 mL an hour. 01/21/2021, I'm seeing this patient for a follow-up. Postextubation, the patient did well initially and she was doing well on a BiPAP and the patient was also able to transition to oxygen by nasal cannula. Nevertheless, over the past 24 hours and specially over the past 12 hours, the patient's condition has gotten worse. Repeat chest x-ray from this morning is showing bilateral pulmonary infiltrates, patchy, involving the left upper lobe and the right lower lobe. Sputum cultures collected earlier electrode turner and finisher to be positive for pseudomonas aeruginosa and the patient was started on IV cefepime. Currently she is on BiPAP at a pressure of 10/5 cm of water with an FiO2 of 50%. She is quite suggestive the BiPAP. Nevertheless, she does lethargic and she seems to be more lethargic compared to yesterday. She opens her eyes upon termination she is following only simple commands. Hemodynamically stable on no pressors. No seizure activity has been noted. She is receiving enteral feeding for n utritional support and the PEG tube is functional at this point in time. Her white cell count is at 7.7. Her blood gases was done and FiO2 of 60% while the patient being on a BiPAP at a pressure of 10/5 in the blood case with a pH of 7.41 with a pCO2 of 46 and a pO2 of 144. Her pro-calcitonin level is at 0.07. Note that pseudomonas aeruginosa was also cultured and the patient's urine. On 01/22/2021 patient seen in follow-up in the intensive care unit, she is still lethargic, appears to be no acute distress, she is still on BiPAP support with pressures of 10/5 and FiO2 of 60%. Her pulse ox is around 93-95%, she is afebrile, her breathing is a bit more labored today, she had a chest x-ray completed today which showed worsening bilateral infiltrates with the possibility of a layering pleural effusion. She was given a dose of IV Lasix this morning 40 mg IV push and she is diuresing profusely, her oxygenation had since improved from 88% to 93% on FiO2 of 60%. Patient seems to be responding nicely to IV Lasix and she has been given an additional dose of 40 of Lasix this afternoon. She remains on cefepime for antibiotic coverage, her sputum and urine cultures were both positive for pseudomonas aeruginosa. Afebrile overnight, not requiring any vasopressor support. She is on 0.9 normal saline at a rate of 20 ML per hour. He slept 7 reviewed, her white count is 8.2, hemoglobin is 9.5, electrolytes are within normal limits, BUN is 50 creatinine 0.36. Patient is tolerating tube feedings, she is receiving vital AF at 45 with a goal of 45 and standard water flushes. On 01/25/2021 patient seen in follow-up in intensive care unit, this morning she is a bit more lethargic compared to yesterday's exam, however she is verbally responding, although she is confused. She is following basic commands. Denies any acute distress, she is currently off BiPAP support, currently on 4 L of oxygen her pulse ox is 92%, hemodynamically she is a bit hypotensive on today's vitals, with short in the 70s over 50s. After recycling the blood pressure cuff blood pressure is 85/81. Clinically patient although slightly somnolent, but she is warm and dry, she is on IV diuretics with Lasix 40 mg once daily, 0.4 L in the urine output in last 24 hours. No new chest x-ray today, no worsening dyspnea, diminished lung sounds at the bases, no wheezes or rhonchi. Patient remains on cefepime for evidence of Pseudomonas in her sputum and urine cultures. She's had no fever or chills. Patient is tolerating PEG tube feedings, she is currently receiving vital AF at 45 with a goal of 45 and standard water flushes. Abdomen is soft, however patient has not had a bowel movement in several days. Labs have been reviewed showing white blood cell count of 9.8, hemoglobin is 9.9, sodium is 137, potassium is 4.0, chloride is 95, CO2 36, BUN is 30, creatinine 0.48, LFTs are within normal limits On 01/27/2021 patient seen in follow-up in intensive care unit, this morning she is on BiPAP support with pressures of 10/5 and FiO2 of 60%. Lung sounds are positive for scattered rhonchi, patient has a weak cough, she is unable to expectorate any of the phlegm, BiPAP mask was removed, patient was placed on 6 L high flow nasal cannula, her pulse ox is 94%. In for pseudomonas in the sputum cultures and urine cultures. No fever overnight, this morning blood pressure is 91/68, patient remains on oral Lasix 20 mg daily. Today's chest x-ray has been reviewed showing bilateral infiltrates and pleural effusion. 24 hour fluid balance is +240. No increased swelling in bilateral lower extremities. The labs have been reviewed showing white blood cell count of 12.9, hemoglobin is 10.8. Potassium is 5.7, the rest of electrolytes were within normal limits, BUN is 38, creatinine 0.37. Patient is tolerating tube feedings, she is currently vital a EF at 45 ML per hour. Objective - Vital Signs Vital signs: Vital Signs Temp 97.6 F 01/26/21 21:00 Pulse 88 01/26/21 21:00 Resp 20 01/27/21 08:00 BP 91/68 01/26/21 21:00 Pulse Ox 94 L 01/26/21 21:00 Intake & Output 01/26/21 01/27/21 01/27/21 18:59 06:59 18:59 Intake Total 515 770 Output Total 570 475 Balance -55 295 Weight 64.6 kg Intake: IV 15 140 0.9 NS 15 40 Cefepime 100 Intake, IV Titration 200 Amount Cefepime 2 gm In Sodium 200 Chloride 0.9% 100 ml @ 25 mls/hr IVPB Q8H [facility] Rx#: [id number] Tube Feeding 270 540 Other 30 90 Output: Urine 570 475 Other: Voiding Method Indwelling Catheter Indwelling Catheter Indwelling Catheter ABP, PAP, CO, CI - Last Documented Arterial Blood Pressure 122/41 - Exam Calm and comfortable, the patient is resting comfortably BiPAP, 10 of 5 and FiO2 of 60% and on 6 L of oxygen with pulse ox of 93%. She is arousable. She is lethargic, but easily arousable to verbal stimulation, she is providing some simple verbal responses, she is confused, she is mostly repeating questions, following basic commands Head exam was generally normal. There was no scleral icterus or corneal arcus. Mucous membranes were moist. Neck was supple and without jugular venous distension, thyromegaly, or carotid bruits. Carotids were easily palpable bilaterally. There was no adenopathy. Orogastric and aortic tube are both in place. Lungs are diminished and the patient is on obvious thoracic and thoracolumbar kyphoscoliosis with cervical kyphosis. Rest of the equal and symmetrical. She has scattered rhonchi, he has a weak nonproductive cough, and she is unable to bring up any phlegm Cardiac exam revealed the PMI to be normally situated and sized. The rhythm was regular and no extrasystoles were noted during several minutes of auscultation. The first and second heart sounds were normal and physiologic splitting of the second heart sound was noted. There were systolic ejection murmur consistent with aortic stenosis , rubs, clicks, or gallops. Abdominal exam revealed normal bowel sounds. The abdomen was soft, non-tender, and without masses, organomegaly, or appreciable enlargement of the abdominal aorta. The patient is a PEG tube in place and the PEG tube site is dry clean an d intact and there is no direct tenderness or rebound tensile guarding. Bowel sounds are hypoactive at the present Examination of the extremities revealed easily palpable radial, femoral and pedal pulses. There was no cyanosis, clubbing or edema. Examination of the skin revealed no evidence of significant rashes, suspicious appearing nevi or other concerning lesions. 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 Neurologically the patient is following some simple commands. No focal neurological deficit. She is currently off propofol. - Labs CBC & Chem 7: 01/27/21 03:14 01/27/21 03:14 Labs: Abnormal Lab Results - Last 24 Hours (Table) 01/26/21 01/26/21 01/26/21 Range/Units 09:38 09:38 11:43 WBC (3.8-10.6) k/uL RBC 3.49 L (3.80-5.40) m/uL Hgb 10.7 L (11.4-16.0) gm/dL Hct 32.2 L (34.0-46.0) % RDW 17.1 H (11.5-15.5) % Neutrophils # (1.3-7.7) k/uL Metamyelocytes # (Man) 0.28 H (0) k/uL Myelocytes # (Manual) 0.19 H (0) k/uL Potassium (3.5-5.1) mmol/L Carbon Dioxide 33 H (22-30) mmol/L BUN 36 H (7-17) mg/dL Creatinine 0.49 L (0.52-1.04) mg/dL Glucose 111 H (74-99) mg/dL POC Glucose (mg/dL) 124 H (75-99) mg/dL 01/26/21 01/27/21 01/27/21 Range/Units 18:10 00:14 03:14 WBC 12.9 H (3.8-10.6) k/uL RBC 3.68 L (3.80-5.40) m/uL Hgb 10.8 L (11.4-16.0) gm/dL Hct (34.0-46.0) % RDW 16.7 H (11.5-15.5) % Neutrophils # 9.2 H (1.3-7.7) k/uL Metamyelocytes # (Man) (0) k/uL Myelocytes # (Manual) (0) k/uL Potassium (3.5-5.1) mmol/L Carbon Dioxide (22-30) mmol/L BUN (7-17) mg/dL Creatinine (0.52-1.04) mg/dL Glucose (74-99) mg/dL POC Glucose (mg/dL) 133 H 112 H (75-99) mg/dL 01/27/21 01/27/21 Range/Units 03:14 06:43 WBC (3.8-10.6) k/uL RBC (3.80-5.40) m/uL Hgb (11.4-16.0) gm/dL Hct (34.0-46.0) % RDW (11.5-15.5) % Neutrophils # (1.3-7.7) k/uL Metamyelocytes # (Man) (0) k/uL Myelocytes # (Manual) (0) k/uL Potassium 5.7 H (3.5-5.1) mmol/L Carbon Dioxide (22-30) mmol/L BUN 38 H (7-17) mg/dL Creatinine 0.37 L (0.52-1.04) mg/dL Glucose 119 H (74-99) mg/dL POC Glucose (mg/dL) 130 H (75-99) mg/dL Assessment and Plan Plan: 1 altered mentation secondary to breakthrough seizure and the patient with known history of epilepsy was maintained on Depakote on outpatient basis. The patient is currently free of any seizures maintained on a combination of Keppra and valproic acid. 2 acute bilateral pneumonia, consider hospital-acquired pneumonia with pseudomonas aeruginosa. Initial chest x-ray was clear during the current ho spitalization and post extubation the patient developed bilateral consolidation consistent with pseudomonal pneumonia and the patient is currently on IV cefepime. 3 acute hypoxic respiratory failure. The patient recovered from respiratory failure initially the patient was extubated successfully. Subsequently she developed bilateral pneumonia secondary to pseudomonas aeruginosa and currently on BiPAP at pressure of 10/5 and FiO2 of 50%. Blood gases was noted and the patient is currently on IV cefepime. 4 dementia 5 Parkinson's disease, mild developmental delay 6 schizoaffective disorder 7 history of epilepsy 8 history of moderate degree of aortic stenosis and the patient has an obvious cardiac murmur on examination. Based on previous echocardiogram, ejection fraction was around 50-55% and the patient has moderate degree of pulmonary hypertension 9 stage IV left buttocks ulcers post-debridement without evidence of any acute infection. 10 esophageal stricture and the patient has a PEG tube in place for enteral feeding and nutritional support 11 abnormal gait due to our concern is and then dementia and the patient is wheelchair-bound and the patient has a caregiver at all 24 7 12 history approximately atrial fibrillation current rhythm is sinus 13 hypertension 14 hyperlipidemia 15 previous history of pneumonia and respiratory failure requiring prolonged hospitalization mechanical ventilation 16 history of recurrent UTIs, urine cultures is indicating Pseudomonas in her jaws and the patient is currently on IV cefepime.17 hypothyroidism 18 obstructive sleep apnea with an AHI of 78 maintained on a Pap on outpatient basis Plan: Continue cefepime total of 10 days Continue breathing treatments Patient is more congested and she is unable to bring up any phlegm Will Consider bronchoscopy for clearing of secretions Obtain consent from the guardian BiPAP support is needed Maintain aspiration precautions We'll follow I performed a history & physical examination of the patient and discussed their management with my nurse practitioner, Elsy De Guzman. I reviewed the nurse practitioner's note and agree with the documented findings and plan of care. Lung sounds are positive for diffuse wheezes throughout the lung huynh. The findings and the impression was discussed with the patient. I attest to the documentation by the nurse practitioner. Time with Patient: Greater than 30
[2021-01-27] MEDS: PANTOPRAZOLE 40 MG/10 ML VIAL IV SCH (09:24)
[2021-01-27] MEDS: levETIRAcetam 500 MG TAB PEG/G-TUBE SCH ×2 (09:24→19:49)
[2021-01-27] MEDS: ATORVASTATIN 10 MG TAB PEG/G-TUBE SCH (09:24)
[2021-01-27] MEDS: APIXABAN 2.5 MG TABLET PEG/G-TUBE SCH ×2 (09:25→19:50)
[2021-01-27] MEDS: VALPROIC ACID ORAL SOLN 250 MG/5 ML CUP PEG/G-TUBE SCH ×2 (09:25→19:49)
[2021-01-27] MEDS: predniSONE 5 MG TAB PEG/G-TUBE SCH (09:26)
[2021-01-27] MEDS: risperiDONE 1 MG TAB PEG/G-TUBE SCH ×2 (09:26→19:49)
[2021-01-27] MEDS ORDERED: MIDAZOLAM 1 MG/ML 5 ML VIAL IV STA (09:44)
--- NOTE | 2021-01-27 10:11 | P.PCN ---
Date of Procedure: 01/27/21 Preoperative Diagnosis: pseudomonal pneumonia, acute hypoxic respiratory failure Postoperative Diagnosis: 1 pseudomonal pneumonia, acute hypoxic respiratory failure 2 tracheobronchomalacia 3 mucous plugging Procedure(s) Performed: 1 flex bronchoscopy 2 therapeutic airway suctioning 3 BAL of the right middle lobe Anesthesia: MAC Surgeon: Truong Lilly Estimated Blood Loss (ml): 0 Pathology: other Condition: stable Disposition: ICU Operative Findings: This is a flexible bronchoscopy that was done in the intensive care unit. The patient is a case of pseudomonal pneumonia with secondary hypoxic respiratory failure. She has a weak cough because of her chronic neurologic impairment, dementia and Parkinson's disease and developmental delay. Based on that, mucous plugging was suspected post pneumonia and the patient was unable to clear up the rest or secretions. A bronchoscopy and therapeutic it was suctioning and removal of mucous plugs was done. This procedure was done in intensive care unit. The patient was given 1 mg of Versed for sedation. She was placed on 100% on a beta facemasks. Using Effexor bronchoscope was able to introduce the bronchoscope through the left nostril and I was able to pass a bronchoscope through the posterior oropharynx and larynx. Upper airway structures were examined and the posterior oropharynx, larynx, epiglottis, vallecula, arytenoids and the vocal cords were all within normal limits. A total of 2 mL of 1% lidocaine was applied to the vocal cords and following that the bronchoscope was advanced into the upper trachea. Examination of the airway was done. There was obvious component of tracheal bronchomalacia throughout the patient's airways with dynamic collapsibility post-coughing and exhalation. Therapeutic airway suctioning was done. Mucous plugs were suctioned out and it was estimated to be around 20-25 mL of purulent this for secretions retained and the patient's airways. Airway inspection was completed. Trachea was normal. Bilateral mainstem bronchi were inspected. There is right airways into the right upper lobe, right middle lobe, right lower lobe bronchus along with various segments. Examination of the left included left mainstem bronchus, left upper lobe bronchus, left lower lobe bronchus along with various segments.. Various segments of the left were also inspected. The rest or secretions were all suctioned out. A bronchial lavage of the rectum and lobe was done. A total of 25 mL was aspirated after flushing the segment with a total of 60 mL. No bedside complications. Bronchoscope was removed and the patient completed the procedure without any complications.
[2021-01-27] MEDS: FORMOTEROL FUMARATE 20 MCG/2 ML NEBU INHALATION SCH ×2 (10:41→19:43)
[2021-01-27] MEDS: BUDESONIDE 0.25 MG/2 ML NEBU INHALATION SCH ×2 (10:41→19:43)
[2021-01-27 11:32] LABS: Glucose,Whole Blood 105 mg/dL (75-99)
[2021-01-27] MEDS: FUROSEMIDE 20 MG TAB PO SCH (13:46)
[2021-01-27 17:46] LABS: Glucose,Whole Blood 101 mg/dL (75-99)
[2021-01-27] MEDS: MONTELUKAST 5 MG CHEWABLE PEG/G-TUBE SCH (19:49)
[2021-01-27] MEDS: LATANOPROST 0.005% OPHTH DROPS 2.5 ML BTL BOTH EYES SCH (19:50)
[2021-01-28 00:38] LABS: Glucose,Whole Blood 90 mg/dL (75-99)
[2021-01-28] MEDS: INSULIN ASPART (NovoLOG) 100 UNIT/ML VIAL SQ SCH ×4 (01:01→19:24)
[2021-01-28 05:17] LABS: Glucose,Whole Blood 80 mg/dL (75-99)
[2021-01-28 05:19] LABS: African American GFR (CKD) >90 (>60 ml/min/1.73 sqM); Anion Gap 7 mmol/L; Blood Urea Nitrogen 37 mg/dL (7-17); Calcium 9.3 mg/dL (8.4-10.2); Carbon Dioxide 32 mmol/L (22-30); Chloride 105 mmol/L (98-107); Glucose 91 mg/dL (74-99); Non-African American GFR(CKD) >90 (>60 ml/min/1.73 sqM); Sodium 144 mmol/L (137-145)
[2021-01-28 05:24] LABS: Anisocytosis Slight; HCT 30.8 % (34.0-46.0); HGB 9.9 gm/dL (11.4-16.0); Hypochromasia Slight; MCH 30.9 pg (25.0-35.0); MCHC 32.2 g/dL (31.0-37.0); MCV 96.1 fL (80.0-100.0); Mean Platelet Volume 7.8; Platelet Count 242 k/uL (150-450); RDW 16.4 % (11.5-15.5); WBC 11.2 k/uL (3.8-10.6)
[2021-01-28] MEDS: LEVOTHYROXINE IVP 100 MCG/5 ML VIAL IV SCH (06:13)
[2021-01-28] MEDS: CEFEPIME 2 GM in SODIUM CHLORIDE 0.9% 100 ML IVPB SCH ×3 (06:14→20:30)
--- NOTE | 2021-01-28 07:25 | XR ---
EXAMINATION TYPE: XR chest 1V portable DATE OF EXAM: 01/28/2021 Comparison: 01/26/2021 Clinical History: 80-year-old female with rhonchi Findings: Leftward patient rotation ultrasound normal cardiomediastinal contours. Right heart margin is obscure d. Heart likely borderline in size. Diffuse interstitial densities persist. Focal opacity left midlun g and right base shows slight improving aeration. Left base is underpenetrated and not well assessed. Impression: Limited, rotated exam. There is continuing interstitial opacities but with improving airspace disease left midlung and right base. Left base underpenetrated and not well assessed.
[2021-01-28] MEDS: BUDESONIDE 0.25 MG/2 ML NEBU INHALATION SCH ×2 (08:49→20:57)
[2021-01-28] MEDS: FORMOTEROL FUMARATE 20 MCG/2 ML NEBU INHALATION SCH ×2 (08:49→20:57)
[2021-01-28] MEDS: levETIRAcetam 500 MG TAB PEG/G-TUBE SCH (08:50)
[2021-01-28] MEDS: predniSONE 5 MG TAB PEG/G-TUBE SCH (08:50)
[2021-01-28] MEDS: VALPROIC ACID ORAL SOLN 250 MG/5 ML CUP PEG/G-TUBE SCH (08:50)
[2021-01-28] MEDS: FUROSEMIDE 20 MG TAB PO SCH (08:50)
[2021-01-28] MEDS: ATORVASTATIN 10 MG TAB PEG/G-TUBE SCH (08:50)
[2021-01-28] MEDS: PANTOPRAZOLE 40 MG/10 ML VIAL IV SCH (08:50)
[2021-01-28] MEDS: APIXABAN 2.5 MG TABLET PEG/G-TUBE SCH (08:50)
[2021-01-28] MEDS: risperiDONE 1 MG TAB PEG/G-TUBE SCH (08:51)
--- NOTE | 2021-01-28 10:31 | P.PN ---
Subjective Progress Note Date: 01/25/21 Principal diagnosis: Altered mental status possibly secondary to breakthrough seizures Acute bilateral pneumonia/ HCAP Acute hypoxic respiratory failure 80 years old female with past medical history of dementia, atrial fibrillation, asthma, heart failure, GERD, hypertension, hyperlipidemia, mitral valve prolapse, seizure disorder, hypothyroidism, Parkinson disease, developmental delay which is mild, she is a affective disorder, chronic anemia, moderate aortic stenosis with preserved LV function at ejection fraction of 50-55%, moderate pulmonary hypertension, left buttock wound, Patient was sent for possible seizure at home, patient was nonverbal upon arrival, she was hypothermic at 95.7, and 19.8, she was bradycardic at 43 to 50s, and hypotensive with blood pressure 83/68. Also patient was saturating 90% on room air however her oxygen saturation deteriorated and she needed to 15 L nonrebreather and eventually she got intubated in the emergency room On admission her CBC is unremarkable. Sodium is 131 on the low side, potassium normal, creatinine normal at 0.5. Liver enzymes are unremarkable, ProBNP is 351. TSH is elevated at 25.1 and free T4 is also elevated at 2.3. Urine analysis showing large leukocyte esterase and WBC elevated at 22. Valproic acid is 92 which is therapeutic. Coronavirus not detected. Chest x-ray: Left lower lobe infiltrate and atelectasis EKG showing sinus bradycardia at 47 with first-degree AV block, no significant ST-T changes. And QTC is 461. CT of the brain: No acute process. Ventricular enlargement with normal pressure hydrocephalus is considered less likely. Patient in the emergency room received ceftriaxone, several boluses of normal saline. Started on a propofol after intubation. Also with seizure control 01/23/2021 the patient remains in intensive care unit, on BiPAP throughout the day The patient's had diffuse breath and pulmonary infiltrates patient was found to have Pseudomonas in her sputum. Interstitial edema and fluid overload was suspected and the patient was given a total of 80 mg IV Lasix yesterday and the patient is a negative fluid balance of 80 mL over the past 24 hours. A follow- up chest x-ray was done today shows some improvement in the volume status and infiltration with discussed earlier. There is however still some patchy by the pulmonary infiltrates throughout the lung huynh bilaterally. She is tolerating her BiPAP without any major difficulties. She is using a fullface mask. Note that she has also history of obstructive sleep apnea and she is using using bypass. The white cell count is at 7 with a hemoglobin of 9 .4 and a platelet of 119. Normal renal function. TSH is at 4.5. She remains on IV cefepime regarding the Pseudomonas in her lungs. The cardiac rhythm is sinus and the patient is on long-term anticoagulation with Eliquis for now. She is on no pressors. IV fluids are currently at KVO. She is receiving enteral feeding for nutritional support. The patient is receiving vital AF at the rate of 45 mL an hour. She is also receiving some standard water flushes through her PEG tube. Plan is to continue with BiPAP support on and off during the day; patient will receive Lasix 40 mg IV twice a day for next 24 hours; remains on IV cefepime; continue with Depakote and Keppra for seizure control 01/24/2021, patient is seen and evaluated in follow-up in the intensive care unit. The patient is currently off the BiPAP; on oxygen at 6 L per minute nasal cannula; overnight she was placed back on the BiPAP and she is back on 6 L of oxygen by nasal cannula. chest x-rays revealed consolidation left upper lobe. The patient has been a negative fluid balance; receiving IV Lasix and she has been at least 3-4 L negative over the past 2 days. She is making excellent urin e output. Remains on enteral feeding for nutritional support via PEG tube. She is receiving vital AF at the rate of 45 mL an hour. She has not had a bowel movement yet. She remains on IV cefepime regarding the pseudomonal growth in her urine and in her lungs. There may be a superimposed pneumonia with Pseudomonas on top of her excessive fluid overload and possibly component of CHF. 01/25/2021 Patient is currently in the MICU. Lethargic and confused. Able to speak 1 word with verbal commands. Patient is off BiPAP and is currently on 4 L oxygen via nasal cannula. Patient is being continued on antibiotics in the form of cefepime with evidence of Pseudomonas in her sputum and urine cultures. Patient has been afebrile. Tolerating PEG tube feeding. Laboratory data showed WBC 9.8 hemoglobin 9.9 sodium 137 potassium 4.0 chloride 95 bicarb is a 86 BUN 30 and creatinine 2.45 Patient is being continued on levothyroxine IV. Patient was seen by neurology and pulmonary is following. Current medications reviewed. Objective - Vital Signs Vital signs: Vital Signs Temp 97 F L 01/25/21 12:00 Pulse 89 01/25/21 14:00 Resp 33 H 01/25/21 14:00 BP 114/42 01/25/21 14:00 Pulse Ox 94 L 01/25/21 14:00 Intake & Output 01/24/21 01/25/21 01/25/21 18:59 06:59 18:59 Intake Total 907 603 598 Output Total 740 486 8024 Balance -88 173 -507 Weight 66.1 kg 66.1 kg Intake: IV 187 78 138 0.9 NS 60 60 135 Cefepime 2 gm In Sodium 100 Chloride 0.9% 100 ml @ 25 mls/hr IVPB Q12H [facility] Rx# :[id number] Pressure Bag 27 18 3 Tube Feeding 630 495 370 Other 90 30 90 Output: Urine 677 463 9893 Other: Voiding Method Indwelling Catheter Indwelling Catheter Indwelling Catheter ABP, PAP, CO, CI - Last Documented Arterial Blood Pressure 122/41 - Exam - Exam -GENERAL: The patient is on oxygen via nasal cannula. Awake but lethargic and drowsy. HEENT: Pupils are round and equally reacting to light. EOMI. No scleral icterus. No conjunctival pallor. Normocephalic, atraumatic. No pharyngeal erythema. No thyromegaly. CARDIOVASCULAR: S1 and S2 present. No murmurs, rubs, or gallops. PULMONARY: Chest is clear to auscultation, no wheezing or crackles. ABDOMEN: Soft, nontender, nondistended, normoactive bowel sounds. No palpable organomegaly. MUSCULOSKELETAL: No joint swelling or deformity. EXTREMITIES: No cyanosis, clubbing, or pedal edema. NEUROLOGICAL: Gross neurological examination did not reveal any focal deficits. SKIN: No rashes. No petechiae, exam is limited because patient clinical status for example intubation - Labs CBC & Chem 7: 01/28/21 04:41 01/28/21 04:41 Labs: Abnormal Lab Results - Last 24 Hours (Table) 01/25/21 01/25/21 01/25/21 Range/Units 01:01 05:04 05:04 RBC 3.20 L (3.80-5.40) m/uL Hgb 9.9 L (11.4-16.0) gm/dL Hct 29.0 L (34.0-46.0) % RDW 17.5 H (11.5-15.5) % Chloride 95 L (98-107) mmol/L Carbon Dioxide 36 H (22-30) mmol/L BUN 30 H (7-17) mg/dL Creatinine 0.48 L (0.52-1.04) mg/dL Glucose 109 H (74-99) mg/dL POC Glucose (mg/dL) 119 H (75-99) mg/dL Total Protein 5.4 L (6.3-8.2) g/dL Albumin 2.8 L (3.5-5.0) g/dL 01/25/21 01/25/21 Range/Units 05:07 11:39 RBC (3.80-5.40) m/uL Hgb (11.4-16.0) gm/dL Hct (34.0-46.0) % RDW (11.5-15.5) % Chloride (98-107) mmol/L Carbon Dioxide (22-30) mmol/L BUN (7-17) mg/dL Creatinine (0.52-1.04) mg/dL Glucose (74-99) mg/dL POC Glucose (mg/dL) 109 H 118 H (75-99) mg/dL Total Protein (6.3-8.2) g/dL Albumin (3.5-5.0) g/dL Microbiology - Last 24 Hours (Table) 01/18/21 19:38 Blood Culture - Final Blood No Growth after 144 hours 01/18/21 19:38 Blood Culture - Final Blood No Growth after 144 hours Assessment and Plan Assessment: Altered mental status secondary to Suspected breakthrough seizure Acute hypoxic respiratory failure secondary to pneumonia, status post intubation. Currently on oxygen via nasal cannula. Hypotension, improvement Acute urinary tract infection secondary to gram-negative bacilli Acute bilateral pneumonia. Possible hospital-acquired with Pseudomonas aeruginosa. dementia Parkinson disease and mild mental delay. History of atrial fibrillation History of asthma History of heart failure History of GERD History of hypertension History of hyperlipidemia History of mitral valve prolapse History of seizure disorder History of hypothyroidism History of Parkinson disease History of developmental delay which is mild History of schizoaffective disorder History of chronic anemia History of moderate aortic stenosis with preserved LV function at ejection fraction of 50-55% History of moderate pulmonary hypertension History of left buttock wound Plan: This is a pleasant 80 years old female who presents with seizure and respiratory failure status post intubation/extubation, currently off BiPAP. Saturating well on nasal cannula. Neurology consult recommended Keppra continue with Depakote. Continue with iv thyroxine Continue with antibiotics, cefepime. Sputum cultures and urine culture growing Pseudomonas. Blood cultures negative. Wound team consult Labs and medication were reviewed.. Monitor lytes and vitals. DVT and GI prophylaxis. Further recommendations depends on the clinical course of the patient DVT prophylaxis: Subcutaneous heparin GI Prophylaxis: Ppi PT/OT: Pending Prognosis is guarded Time with Patient: Greater than 30
--- NOTE | 2021-01-28 10:41 | P.PN ---
Subjective Progress Note Date: 01/26/21 Principal diagnosis: Altered mental status possibly secondary to breakthrough seizures Acute bilateral pneumonia/ HCAP Acute hypoxic respiratory failure 80 years old female with past medical history of dementia, atrial fibrillation, asthma, heart failure, GERD, hypertension, hyperlipidemia, mitral valve prolapse, seizure disorder, hypothyroidism, Parkinson disease, developmental delay which is mild, she is a affective disorder, chronic anemia, moderate aortic stenosis with preserved LV function at ejection fraction of 50-55%, moderate pulmonary hypertension, left buttock wound, Patient was sent for possible seizure at home, patient was nonverbal upon arrival, she was hypothermic at 95.7, and 19.8, she was bradycardic at 43 to 50s, and hypotensive with blood pressure 83/68. Also patient was saturating 90% on room air however her oxygen saturation deteriorated and she needed to 15 L nonrebreather and eventually she got intubated in the emergency room On admission her CBC is unremarkable. Sodium is 131 on the low side, potassium normal, creatinine normal at 0.5. Liver enzymes are unremarkable, ProBNP is 351. TSH is elevated at 25.1 and free T4 is also elevated at 2.3. Urine analysis showing large leukocyte esterase and WBC elevated at 22. Valproic acid is 92 which is therapeutic. Coronavirus not detected. Chest x-ray: Left lower lobe infiltrate and atelectasis EKG showing sinus bradycardia at 47 with first-degree AV block, no significant ST-T changes. And QTC is 461. CT of the brain: No acute process. Ventricular enlargement with normal pressure hydrocephalus is considered less likely. Patient in the emergency room received ceftriaxone, several boluses of normal saline. Started on a propofol after intubation. Also with seizure control 01/23/2021 the patient remains in intensive care unit, on BiPAP throughout the day The patient's had diffuse breath and pulmonary infiltrates patient was found to have Pseudomonas in her sputum. Interstitial edema and fluid overload was suspected and the patient was given a total of 80 mg IV Lasix yesterday and the patient is a negative fluid balance of 80 mL over the past 24 hours. A follow- up chest x-ray was done today shows some improvement in the volume status and infiltration with discussed earlier. There is however still some patchy by the pulmonary infiltrates throughout the lung huynh bilaterally. She is tolerating her BiPAP without any major difficulties. She is using a fullface mask. Note that she has also history of obstructive sleep apnea and she is using using bypass. The white cell count is at 7 with a hemoglobin of 9 .4 and a platelet of 119. Normal renal function. TSH is at 4.5. She remains on IV cefepime regarding the Pseudomonas in her lungs. The cardiac rhythm is sinus and the patient is on long-term anticoagulation with Eliquis for now. She is on no pressors. IV fluids are currently at KVO. She is receiving enteral feeding for nutritional support. The patient is receiving vital AF at the rate of 45 mL an hour. She is also receiving some standard water flushes through her PEG tube. Plan is to continue with BiPAP support on and off during the day; patient will receive Lasix 40 mg IV twice a day for next 24 hours; remains on IV cefepime; continue with Depakote and Keppra for seizure control 01/24/2021, patient is seen and evaluated in follow-up in the intensive care unit. The patient is currently off the BiPAP; on oxygen at 6 L per minute nasal cannula; overnight she was placed back on the BiPAP and she is back on 6 L of oxygen by nasal cannula. chest x-rays revealed consolidation left upper lobe. The patient has been a negative fluid balance; receiving IV Lasix and she has been at least 3-4 L negative over the past 2 days. She is making excellent urin e output. Remains on enteral feeding for nutritional support via PEG tube. She is receiving vital AF at the rate of 45 mL an hour. She has not had a bowel movement yet. She remains on IV cefepime regarding the pseudomonal growth in her urine and in her lungs. There may be a superimposed pneumonia with Pseudomonas on top of her excessive fluid overload and possibly component of CHF. 01/25/2021 Patient is currently in the MICU. Lethargic and confused. Able to speak 1 word with verbal commands. Patient is off BiPAP and is currently on 4 L oxygen via nasal cannula. Patient is being continued on antibiotics in the form of cefepime with evidence of Pseudomonas in her sputum and urine cultures. Patient has been afebrile. Tolerating PEG tube feeding. Laboratory data showed WBC 9.8 hemoglobin 9.9 sodium 137 potassium 4.0 chloride 95 bicarb is a 86 BUN 30 and creatinine 2.45 Patient is being continued on levothyroxine IV. Patient was seen by neurology and pulmonary is following. 01/26/2021 Patient remains in the intensive care unit. Able to open her eyes with verbal commands. Still lethargic and weak. Currently on oxygen via nasal cannula. Chest x-ray showed bilateral infiltrate and pleural effusion correlate for diffuse pneumonia versus CHF. Findings slightly progress on the right. Patient is being continued on antibiotics in the form of cefepime. Remains on bronchodilators. Tolerating tube feeding. Patient is being continued on Lasix and not accomplished with Eliquis. Also on IV levothyroxine and antiarrhythmic medications. Current medications reviewed. Objective - Vital Signs Vital signs: Vital Signs Temp 97.8 F 01/26/21 13:46 Pulse 90 01/26/21 20:16 Resp 12 01/26/21 13:46 BP 98/58 01/26/21 13:46 Pulse Ox 97 01/26/21 13:46 Intake & Output 01/26/21 01/26/21 01/27/21 06:59 18:59 06:59 Intake Total 760 515 Output Total 625 570 Balance 135 -55 Weight 64 kg Intake: IV 130 15 0.9 NS 130 15 Intake, IV Titration 200 Amount Cefepime 2 gm In Sodium 200 Chloride 0.9% 100 ml @ 25 mls/hr IVPB Q8H [facility] Rx#: [id number] Tube Feeding 540 270 Other 90 30 Output: Urine 625 570 Other: Voiding Method Indwelling Catheter Indwelling Catheter # Bowel Movements 1 ABP, PAP, CO, CI - Last Documented Arterial Blood Pressure 122/41 - Exam - Exam -GENERAL: The patient is on oxygen via nasal cannula. Awake but lethargic and drowsy. HEENT: Pupils are round and equally reacting to light. EOMI. No scleral icterus. No conjunctival pallor. Normocephalic, atraumatic. No pharyngeal erythema. No thyromegaly. CARDIOVASCULAR: S1 and S2 present. No murmurs, rubs, or gallops. PULMONARY: Chest is clear to auscultation, no wheezing. Bibasilar diminished sounds and scattered crackles. ABDOMEN: Soft, nontender, nondistended, normoactive bowel sounds. No palpable organomegaly. MUSCULOSKELETAL: No joint swelling or deformity. EXTREMITIES: No cyanosis, clubbing, or pedal edema. NEUROLOGICAL: Gross neurological examination did not reveal any focal deficits. SKIN: No rashes. No petechiae, exam is limited because patient clinical status for example intubation - Labs CBC & Chem 7: 01/28/21 04:41 01/28/21 04:41 Labs: Abnormal Lab Results - Last 24 Hours (Table) 01/25/21 01/26/21 01/26/21 Range/Units 23:49 05:17 09:38 RBC 3.49 L (3.80-5.40) m/uL Hgb 10.7 L (11.4-16.0) gm/dL Hct 32.2 L (34.0-46.0) % RDW 17.1 H (11.5-15.5) % Metamyelocytes # (Man) 0.28 H (0) k/uL Myelocytes # (Manual) 0.19 H (0) k/uL Carbon Dioxide (22-30) mmol/L BUN (7-17) mg/dL Creatinine (0.52-1.04) mg/dL Glucose (74-99) mg/dL POC Glucose (mg/dL) 110 H 111 H (75-99) mg/dL 01/26/21 01/26/21 01/26/21 Range/Units 09:38 11:43 18:10 RBC (3.80-5.40) m/uL Hgb (11.4-16.0) gm/dL Hct (34.0-46.0) % RDW (11.5-15.5) % Metamyelocytes # (Man) (0) k/uL Myelocytes # (Manual) (0) k/uL Carbon Dioxide 33 H (22-30) mmol/L BUN 36 H (7-17) mg/dL Creatinine 0.49 L (0.52-1.04) mg/dL Glucose 111 H (74-99) mg/dL POC Glucose (mg/dL) 124 H 133 H (75-99) mg/dL Assessment and Plan Assessment: Altered mental status secondary to Suspected breakthrough seizure Acute hypoxic respiratory failure secondary to pneumonia, status post intubation. Currently on oxygen via nasal cannula. Hypotension, improvement Acute urinary tract infection secondary to gram-negative bacilli Acute bilateral pneumonia. Possible hospital-acquired with Pseudomonas aeruginosa. dementia Parkinson disease and mild mental delay. History of paroxysmal atrial fibrillation on anticoagulation with Eliquis. History of asthma History of heart failure History of GERD History of hypertension History of hyperlipidemia History of mitral valve prolapse History of seizure disorder History of hypothyroidism History of Parkinson disease History of developmental delay which is mild History of schizoaffective disorder History of chronic anemia History of moderate aortic stenosis with preserved LV function at ejection fraction of 50-55% History of moderate pulmonary hypertension History of stage IV left buttock ulcers Plan: This is a pleasant 80 years old female who presents with seizure and respiratory failure status post intubation/extubation, currently off BiPAP. Saturating well on nasal cannula. Neurology consult recommended Keppra continue with Depakote. Continue with iv thyroxine. Continue with Lasix 20 mg daily. Continue with antibiotics, cefepime. Sputum cultures and urine culture growing Pseudomonas. Blood cultures negative. Wound team consult Labs and medication were reviewed.. Monitor lytes and vitals. DVT and GI prophylaxis. Further recommendations d epends on the clinical course of the patient DVT prophylaxis: Subcutaneous heparin GI Prophylaxis: Ppi PT/OT: Pending Prognosis is guarded Time with Patient: Greater than 30
--- NOTE | 2021-01-28 10:45 | P.PN ---
Subjective Progress Note Date: 01/27/21 Principal diagnosis: Altered mental status possibly secondary to breakthrough seizures Acute bilateral pneumonia/ HCAP Acute hypoxic respiratory failure 80 years old female with past medical history of dementia, atrial fibrillation, asthma, heart failure, GERD, hypertension, hyperlipidemia, mitral valve prolapse, seizure disorder, hypothyroidism, Parkinson disease, developmental delay which is mild, she is a affective disorder, chronic anemia, moderate aortic stenosis with preserved LV function at ejection fraction of 50-55%, moderate pulmonary hypertension, left buttock wound, Patient was sent for possible seizure at home, patient was nonverbal upon arrival, she was hypothermic at 95.7, and 19.8, she was bradycardic at 43 to 50s, and hypotensive with blood pressure 83/68. Also patient was saturating 90% on room air however her oxygen saturation deteriorated and she needed to 15 L nonrebreather and eventually she got intubated in the emergency room On admission her CBC is unremarkable. Sodium is 131 on the low side, potassium normal, creatinine normal at 0.5. Liver enzymes are unremarkable, ProBNP is 351. TSH is elevated at 25.1 and free T4 is also elevated at 2.3. Urine analysis showing large leukocyte esterase and WBC elevated at 22. Valproic acid is 92 which is therapeutic. Coronavirus not detected. Chest x-ray: Left lower lobe infiltrate and atelectasis EKG showing sinus bradycardia at 47 with first-degree AV block, no significant ST-T changes. And QTC is 461. CT of the brain: No acute process. Ventricular enlargement with normal pressure hydrocephalus is considered less likely. Patient in the emergency room received ceftriaxone, several boluses of normal saline. Started on a propofol after intubation. Also with seizure control 01/23/2021 the patient remains in intensive care unit, on BiPAP throughout the day The patient's had diffuse breath and pulmonary infiltrates patient was found to have Pseudomonas in her sputum. Interstitial edema and fluid overload was suspected and the patient was given a total of 80 mg IV Lasix yesterday and the patient is a negative fluid balance of 80 mL over the past 24 hours. A follow- up chest x-ray was done today shows some improvement in the volume status and infiltration with discussed earlier. There is however still some patchy by the pulmonary infiltrates throughout the lung huynh bilaterally. She is tolerating her BiPAP without any major difficulties. She is using a fullface mask. Note that she has also history of obstructive sleep apnea and she is using using bypass. The white cell count is at 7 with a hemoglobin of 9 .4 and a platelet of 119. Normal renal function. TSH is at 4.5. She remains on IV cefepime regarding the Pseudomonas in her lungs. The cardiac rhythm is sinus and the patient is on long-term anticoagulation with Eliquis for now. She is on no pressors. IV fluids are currently at KVO. She is receiving enteral feeding for nutritional support. The patient is receiving vital AF at the rate of 45 mL an hour. She is also receiving some standard water flushes through her PEG tube. Plan is to continue with BiPAP support on and off during the day; patient will receive Lasix 40 mg IV twice a day for next 24 hours; remains on IV cefepime; continue with Depakote and Keppra for seizure control 01/24/2021, patient is seen and evaluated in follow-up in the intensive care unit. The patient is currently off the BiPAP; on oxygen at 6 L per minute nasal cannula; overnight she was placed back on the BiPAP and she is back on 6 L of oxygen by nasal cannula. chest x-rays revealed consolidation left upper lobe. The patient has been a negative fluid balance; receiving IV Lasix and she has been at least 3-4 L negative over the past 2 days. She is making excellent urin e output. Remains on enteral feeding for nutritional support via PEG tube. She is receiving vital AF at the rate of 45 mL an hour. She has not had a bowel movement yet. She remains on IV cefepime regarding the pseudomonal growth in her urine and in her lungs. There may be a superimposed pneumonia with Pseudomonas on top of her excessive fluid overload and possibly component of CHF. 01/25/2021 Patient is currently in the MICU. Lethargic and confused. Able to speak 1 word with verbal commands. Patient is off BiPAP and is currently on 4 L oxygen via nasal cannula. Patient is being continued on antibiotics in the form of cefepime with evidence of Pseudomonas in her sputum and urine cultures. Patient has been afebrile. Tolerating PEG tube feeding. Laboratory data showed WBC 9.8 hemoglobin 9.9 sodium 137 potassium 4.0 chloride 95 bicarb is a 86 BUN 30 and creatinine 2.45 Patient is being continued on levothyroxine IV. Patient was seen by neurology and pulmonary is following. 01/26/2021 Patient remains in the intensive care unit. Able to open her eyes with verbal commands. Still lethargic and weak. Currently on oxygen via nasal cannula. Chest x-ray showed bilateral infiltrate and pleural effusion correlate for diffuse pneumonia versus CHF. Findings slightly progress on the right. Patient is being continued on antibiotics in the form of cefepime. Remains on bronchodilators. Tolerating tube feeding. Patient is being continued on Lasix and not accomplished with Eliquis. Also on IV levothyroxine and antiarrhythmic medications. 01/27/2021 Patient is in the medical intensive care unit. Using BiPAP on and off. Patient is on high flow oxygen 6 L by another cannula currently. Chest x-ray showed bilateral infiltrates and pleural effusion. Continue on Lasix 20 mg daily. Patient is being continued on cefepime due to Pseudomonas UTI and sputum cultures positive for Pseudomonas. Patient is tolerating PEG tube feeding. Patient is status post bronchoscopy. Showed tracheal bronchomalacia and mucous plugging. Fluid cultures were sent. Critical care team is following. Current medications reviewed. Objective - Vital Signs Vital signs: Vital Signs Temp 98.2 F 01/27/21 14:00 Pulse 100 01/27/21 20:05 Resp 22 01/27/21 14:00 BP 83/71 01/27/21 08:00 Pulse Ox 96 01/27/21 14:00 Intake & Output 01/27/21 01/27/21 01/28/21 06:59 18:59 06:59 Intake Total 770 1120 Output Total 475 350 Balance 295 770 Weight 64.6 kg Intake: IV 140 40 0.9 NS 40 40 Cefepime 100 Tube Feeding 540 1080 Other 90 Output: Urine 475 350 Other: Voiding Method Indwelling Catheter Indwelling Catheter ABP, PAP, CO, CI - Last Documented Arterial Blood Pressure 122/41 - Exam - Exam -GENERAL: The patient is on oxygen via nasal cannula. Awake but lethargic and drowsy. HEENT: Pupils are round and equally reacting to light. EOMI. No scleral icterus. No conjunctival pallor. Normocephalic, atraumatic. No pharyngeal erythema. No thyromegaly. CARDIOVASCULAR: S1 and S2 present. No murmurs, rubs, or gallops. PULMONARY: Chest is clear to auscultation, no wheezing. Bibasilar diminished sounds and scattered crackles. ABDOMEN: Soft, nontender, nondistended, normoactive bowel sounds. No palpable organomegaly. MUSCULOSKELETAL: No joint swelling or deformity. EXTREMITIES: No cyanosis, clubbing, or pedal edema. NEUROLOGICAL: Gross neurological examination did not reveal any focal deficits. SKIN: No rashes. No petechiae, exam is limited because patient clinical status for example intubation - Labs CBC & Chem 7: 01/28/21 04:41 01/28/21 04:41 Labs: Abnormal Lab Results - Last 24 Hours (Table) 01/27/21 01/27/21 01/27/21 Range/Units 00:14 03:14 03:14 WBC 12.9 H (3.8-10.6) k/uL RBC 3.68 L (3.80-5.40) m/uL Hgb 10.8 L (11.4-16.0) gm/dL RDW 16.7 H (11.5-15.5) % Neutrophils # 9.2 H (1.3-7.7) k/uL Potassium 5.7 H (3.5-5.1) mmol/L BUN 38 H (7-17) mg/dL Creatinine 0.37 L (0.52-1.04) mg/dL Glucose 119 H (74-99) mg/dL POC Glucose (mg/dL) 112 H (75-99) mg/dL 01/27/21 01/27/21 01/27/21 Range/Units 06:43 11:31 17:45 WBC (3.8-10.6) k/uL RBC (3.80-5.40) m/uL Hgb (11.4-16.0) gm/dL RDW (11.5-15.5) % Neutrophils # (1.3-7.7) k/uL Potassium (3.5-5.1) mmol/L BUN (7-17) mg/dL Creatinine (0.52-1.04) mg/dL Glucose (74-99) mg/dL POC Glucose (mg/dL) 130 H 105 H 101 H (75-99) mg/dL Microbiology - Last 24 Hours (Table) 01/27/21 09:50 Acid Fast Bacilli Culture - Preliminary Bronchial Washings - Random 01/27/21 09:50 Fungal Culture - Preliminary Bronchial Washings - Random 01/27/21 09:50 Bronchial Washings Culture - Preliminary Bronchial Washings - Random Assessment and Plan Assessment: Altered mental status secondary to Suspected breakthrough seizure Acute hypoxic respiratory failure secondary to pneumonia, status post intubation. Currently on oxygen via nasal cannula. Hypotension, improvement Acute urinary tract infection secondary to gram-negative bacilli Acute bilateral pneumonia. Possible hospital-acquired with Pseudomonas aeruginosa. Bilateral pleural effusion. dementia Parkinson disease and mild mental delay. History of paroxysmal atrial fibrillation on anticoagulation with Eliquis. History of asthma History of heart failure History of GERD History of hypertension History of hyperlipidemia History of mitral valve prolapse History of seizure disorder History of hypothyroidism History of Parkinson disease History of developmental delay which is mild History of schizoaffective disorder History of chronic anemia History of moderate aortic stenosis with preserved LV function at ejection fraction of 50-55% History of moderate pulmonary hypertension History of stage IV left buttock ulcers Plan: This is a pleasant 80 years old female who presents with seizure and respiratory failure status post intubation/extubation, currently off BiPAP. Saturating well on nasal cannula. Neurology consult recommended Keppra continue with Depakote. Continue with iv thyroxine. Continue with Lasix 20 mg daily. Continue with antibiotics, cefepime. Sputum cultures and urine culture growing Pseudomonas. Blood cultures negative. Wound team consult Labs and medication were reviewed.. Monitor lytes and vitals. DVT and GI prophylaxis. Further recommendations depends on the clinical course of the patient DVT prophylaxis: Subcutaneous heparin GI Prophylaxis: Ppi PT/OT: Pending Prognosis is guarded Time with Patient: Greater than 30
[2021-01-28 11:47] LABS: Glucose,Whole Blood 116 mg/dL (75-99)
--- NOTE | 2021-01-28 13:23 | P.PN ---
Subjective Progress Note Date: 01/28/21 Principal diagnosis: Altered mental status, due to breakthrough seizure, acute bilateral pneumonia This is a 80-year-old female patient, known to me from previous admissions, caleb contreras to have multiple medical problems and comorbidities most significant a history of dementia along with schizophrenia with Parkinson's disease was been essentially bedridden and she has a 24-hour caregiver at home. Recently, the patient has developed a stage IV sacral decub ulcer and the patient was in the hospital yesterday for a debridement procedure that was done and the patient was discharged home. Discharge, the patient was noted to have seizure activity at home. Note that she has history of seizures and she has been maintained on Depakote on outpatient basis. She was given all of her medications with a caregiver without any interruption. Her seizure lasted for few minutes and the patient was postictal. Apparently she was having tonic-clonic activity as documented by the emergency department team. The patient in the emergency was evaluated. Mentation was altered. She was having twitching in her tongue and mouth area and it was suspected that she was having ongoing seizure activity. For that reason, the patient was started on propofol and the patient was intubated and p laced on a mechanical ventilator for airway protection. Note that the patient apparently was having seizures in the past. She had to seizure activities back in October 2020. She sees a neurologist out of [facility]. She was seen by her neurologist recently and she has not skipped any of her Depakote doses. The patient was given a total of 1 mg Ativan in the emergency department. Her valproic acid level was at 92. The patient was seen by neurology today and the patient was given 1 g every 12 hours and the neurologist asked to continue the Depakote. CAT scan of the brain was done in the emergency department showed no acute abnormalities. No reported fever. No reported neck stiffness. No reported aspiration. The patient had a white cell count of 8.4 with a hemoglobin of 10.2. This morning, it out with this patient in intensive care unit. She was on a mechanical ventilator. She was an assist-control at the rate of 14 with tidal volume of 375 and FiO2 of 50% with a PEEP of 5. Blood gas showed a pH of 7.54 with a pCO2 of 34 and pO2 166. Chest patient was somewhat limited as the patient has significant Scoliosis of the thoracic spine. Nevertheless, there was no airspace disease or consolidation. ET tube was in a good location. The patient had no significant orotracheal secretions. The patient remains hemodynamically stable. She was given a total of 2 L of IV fluids in the emergency department and she did not require any pressors. Her cardiac rhythm was sinus all of the patient has history of atrial fibrillation and she is maintained on anticoagulation with Eliquis. She also has obstructive sleep apnea and this was severe with an AHI of 76 and she was placed on APAP on outpatient basis. There is a month her various other comorbidities. 01/20/2021 the patient is being seen in follow-up in the intensive care unit. The patient got extubated yesterday and currently she is on a BiPAP at a pressure of 10/5 cm of water with an FiO2 of 60%. She is arousable. She is generating tidal volumes in the 550 range with a respiratory rate of 20. The blood gases from today showed a pH of 7.37 with a pCO2 of 48 empiric of 103. She is calm and comfortable while being on a BiPAP. Note that the patient postextubation she was placed on a BiPAP knowing that she has also severe obstructive sleep apnea. Chest x-ray from today shows some residual atelectatic changes and left lower lobe. Otherwise no acute abnormalities have been noted. Overnight, no seizure activity has been noted. The patient is free of any seizures for now. A EEG was done yesterday that showed abnormal findings with slowing suggestive of some mild encephalopathy. Meanwhile, the patient remains on Keppra 500 mg twice a day through her PEG tube and she is also on valproic ac id syrup. TSH is down to 10.1. Free T4 is at 1.84. Rest of the electrolytes all stable for now. She is arousable. Brunson cath is in place. IV fluids are running at the rate of 75 mL an hour. 01/21/2021, I'm seeing this patient for a follow-up. Postextubation, the patient did well initially and she was doing well on a BiPAP and the patient was also able to transition to oxygen by nasal cannula. Nevertheless, over the past 24 hours and specially over the past 12 hours, the patient's condition has gotten worse. Repeat chest x-ray from this morning is showing bilateral pulmonary infiltrates, patchy, involving the left upper lobe and the right lower lobe. Sputum cultures collected earlier turning lathe tender to be positive for pseudomonas aeruginosa and the patient was started on IV cefepime. Currently she is on BiPAP at a pressure of 10/5 cm of water with an FiO2 of 50%. She is quite suggestive the BiPAP. Nevertheless, she does lethargic and she seems to be more lethargic compared to yesterday. She opens her eyes upon termination she is following only simple commands. Hemodynamically stable on no pressors. No seizure activity has been noted. She is receiving enteral feeding for n utritional support and the PEG tube is functional at this point in time. Her white cell count is at 7.7. Her blood gases was done and FiO2 of 60% while the patient being on a BiPAP at a pressure of 10/5 in the blood case with a pH of 7.41 with a pCO2 of 46 and a pO2 of 144. Her pro-calcitonin level is at 0.07. Note that pseudomonas aeruginosa was also cultured and the patient's urine. On 01/22/2021 patient seen in follow-up in the intensive care unit, she is still lethargic, appears to be no acute distress, she is still on BiPAP support with pressures of 10/5 and FiO2 of 60%. Her pulse ox is around 93-95%, she is afebrile, her breathing is a bit more labored today, she had a chest x-ray completed today which showed worsening bilateral infiltrates with the possibility of a layering pleural effusion. She was given a dose of IV Lasix this morning 40 mg IV push and she is diuresing profusely, her oxygenation had since improved from 88% to 93% on FiO2 of 60%. Patient seems to be responding nicely to IV Lasix and she has been given an additional dose of 40 of Lasix this afternoon. She remains on cefepime for antibiotic coverage, her sputum and urine cultures were both positive for pseudomonas aeruginosa. Afebrile overnight, not requiring any vasopressor support. She is on 0.9 normal saline at a rate of 20 ML per hour. He slept 7 reviewed, her white count is 8.2, hemoglobin is 9.5, electrolytes are within normal limits, BUN is 50 creatinine 0.36. Patient is tolerating tube feedings, she is receiving vital AF at 45 with a goal of 45 and standard water flushes. On 01/25/2021 patient seen in follow-up in intensive care unit, this morning she is a bit more lethargic compared to yesterday's exam, however she is verbally responding, although she is confused. She is following basic commands. Denies any acute distress, she is currently off BiPAP support, currently on 4 L of oxygen her pulse ox is 92%, hemodynamically she is a bit hypotensive on today's vitals, with short in the 70s over 50s. After recycling the blood pressure cuff blood pressure is 85/81. Clinically patient although slightly somnolent, but she is warm and dry, she is on IV diuretics with Lasix 40 mg once daily, 0.4 L in the urine output in last 24 hours. No new chest x-ray today, no worsening dyspnea, diminished lung sounds at the bases, no wheezes or rhonchi. Patient remains on cefepime for evidence of Pseudomonas in her sputum and urine cultures. She's had no fever or chills. Patient is tolerating PEG tube feedings, she is currently receiving vital AF at 45 with a goal of 45 and standard water flushes. Abdomen is soft, however patient has not had a bowel movement in several days. Labs have been reviewed showing white blood cell count of 9.8, hemoglobin is 9.9, sodium is 137, potassium is 4.0, chloride is 95, CO2 36, BUN is 30, creatinine 0.48, LFTs are within normal limits On 01/27/2021 patient seen in follow-up in intensive care unit, this morning she is on BiPAP support with pressures of 10/5 and FiO2 of 60%. Lung sounds are positive for scattered rhonchi, patient has a weak cough, she is unable to expectorate any of the phlegm, BiPAP mask was removed, patient was placed on 6 L high flow nasal cannula, her pulse ox is 94%. In for pseudomonas in the sputum cultures and urine cultures. No fever overnight, this morning blood pressure is 91/68, patient remains on oral Lasix 20 mg daily. Today's chest x-ray has been reviewed showing bilateral infiltrates and pleural effusion. 24 hour fluid balance is +240. No increased swelling in bilateral lower extremities. The labs have been reviewed showing white blood cell count of 12.9, hemoglobin is 10.8. Potassium is 5.7, the rest of electrolytes were within normal limits, BUN is 38, creatinine 0.37. Patient is tolerating tube feedings, she is currently vital a EF at 45 ML per hour. On 01/28/2021 patient seen in follow-up in the intensive care unit, she is breathing comfortably, she is currently on 6 L of oxygen her pulse ox is 97%, FiO2 has been turned down to 4 L. She did wear BiPAP support last night, with pressures 10 and 5, and FiO2 of 40%. She has been afebrile, blood pressure is been stable, is currently 116/89. Breathing is nonlabored, much less congested on today's exam, she status post bronchoscopy with removal of bronchial secretions. She remains on cefepime. Bronchial wash cultures are still pending, Gram stain shows moderate PMNs, few gram-positive bacilli. She is tolerating oral feedings, she is on vital HP at 45 with a goal of 45, she is in sinus mechanism, the rate is controlled. Today's labs reviewed, her white blood cell count slightly improved and is down to 11.2, hemoglobin is 9.9, sodium is 144, potassium 4.0, chloride is 105, CO2 32, BUN is 37, creatinine 0.37. Patient remains on 5 mg of prednisone, and maintenance dose of Lasix 20 mg daily. Patient had a bowel movement, abdomen is soft. Nontender. Objective - Vital Signs Vital signs: Vital Signs Temp 98.5 F 01/28/21 02:00 Pulse 69 01/28/21 09:15 Resp 16 01/28/21 02:00 BP 116/89 01/28/21 02:00 Pulse Ox 98 01/28/21 02:00 Intake & Output 01/27/21 01/28/21 01/28/21 18:59 06:59 18:59 Intake Total 1120 810 Output Total 350 450 Balance 770 360 Weight 64.6 kg Intake: IV 40 260 0.9 NS 40 60 Cefepime 200 Tube Feeding 1080 450 Other 100 Output: Urine 350 450 Other: Voiding Method Indwelling Catheter Indwelling Catheter Indwelling Catheter # Bowel Movements 1 ABP, PAP, CO, CI - Last Documented Arterial Blood Pressure 122/41 - Exam Calm and comfortable, the patient is resting comfortably BiPAP, 10 of 5 and FiO2 of 60% and on 6 L of oxygen with pulse ox of 93%. She is arousable. She is lethargic, but easily arousable to verbal stimulation, she is providing some simple verbal responses, she is confused, she is mostly repeating questions, following basic commands Head exam was generally normal. There was no scleral icterus or corneal arcus. Mucous membranes were moist. Neck was supple and without jugular venous distension, thyromegaly, or carotid bruits. Carotids were easily palpable bilaterally. There was no adenopathy. Orogastric and aortic tube are both in place. Lungs are diminished and the patient is on obvious thoracic and thoracolumbar kyphoscoliosis with cervical kyphosis. Rest of the equal and symmetrical. She has scattered rhonchi, he has a weak nonproductive cough, and she is unable to bring up any phlegm Cardiac exam revealed the PMI to be normally situated and sized. The rhythm was regular and no extrasystoles were noted during several minutes of auscultation. The first and second heart sounds were normal and physiologic splitting of the second heart sound was noted. There were systolic ejection murmur consistent with aortic stenosis , rubs, clicks, or gallops. Abdominal exam revealed normal bowel sounds. The abdomen was soft, non-tender, and without masses, organomegaly, or appreciable enlargement of the abdominal aorta. The patient is a PEG tube in place and the PEG tube site is dry clean and intact and there is no direct tenderness or rebound tensile guarding. Bowel sounds are hypoactive at the present Examination of the extremities revealed easily palpable radial, femoral and pedal pulses. There was no cyanosis, clubbing or edema. Examination of the skin revealed no evidence of significant rashes, suspicious appearing nevi or other concerning lesions. 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 Neurologically the patient is following some simple commands. No focal neurological deficit. She is currently off propofol. - Labs CBC & Chem 7: 01/28/21 04:41 01/28/21 04:41 Labs: Abnormal Lab Results - Last 24 Hours (Table) 01/27/21 01/27/21 01/28/21 Range/Units 09:50 17:45 04:41 WBC 11.2 H (3.8-10.6) k/uL RBC 3.20 L (3.80-5.40) m/uL Hgb 9.9 L (11.4-16.0) gm/dL Hct 30.8 L (34.0-46.0) % RDW 16.4 H (11.5-15.5) % Carbon Dioxide (22-30) mmol/L BUN (7-17) mg/dL Creatinine (0.52-1.04) mg/dL POC Glucose (mg/dL) 101 H (75-99) mg/dL Viral Test See Below A 01/28/21 01/28/21 Range/Units 04:41 11:45 WBC (3.8-10.6) k/uL RBC (3.80-5.40) m/uL Hgb (11.4-16.0) gm/dL Hct (34.0-46.0) % RDW (11.5-15.5) % Carbon Dioxide 32 H (22-30) mmol/L BUN 37 H (7-17) mg/dL Creatinine 0.37 L (0.52-1.04) mg/dL POC Glucose (mg/dL) 116 H (75-99) mg/dL Viral Test Microbiology - Last 24 Hours (Table) 01/27/21 09:50 Gram Stain - Preliminary Bronchial Washings - Random Bronchial Washings Culture - Preliminary 01/27/21 09:50 Acid Fast Bacilli Culture - Preliminary Bronchial Washings - Random 01/27/21 09:50 Fungal Culture - Preliminary Bronchial Washings - Random Assessment and Plan Plan: 1 altered mentation secondary to breakthrough seizure and the patient with known history of epilepsy was maintained on Depakote on outpatient basis. The patient is currently free of any seizures maintained on a combination of Keppra and valproic acid. 2 acute bilateral pneumonia, consider hospital-acquired pneumonia with pseudomonas aeruginosa. Initial chest x-ray was clear during the current hospitalization and post extubation the patient developed bilateral consolidation consistent with pseudomonal pneumonia and the patient is currently on IV cefepime. 3 acute hypoxic respiratory failure. The patient recovered from respiratory failure initially the patient was extubated successfully. Subsequently she deve loped bilateral pneumonia secondary to pseudomonas aeruginosa and currently on BiPAP at pressure of 10/5 and FiO2 of 50%. Blood gases was noted and the patient is currently on IV cefepime. 4 dementia 5 Parkinson's disease, mild developmental delay 6 schizoaffective disorder 7 history of epilepsy 8 history of moderate degree of aortic stenosis and the patient has an obvious cardiac murmur on examination. Based on previous echocardiogram, ejection fraction was around 50-55% and the patient has moderate degree of pulmonary hypertension 9 stage IV left buttocks ulcers post-debridement without evidence of any acute infection. 10 esophageal stricture and the patient has a PEG tube in place for enteral feeding and nutritional support 11 abnormal gait due to our concern is and then dementia and the patient is wheelchair-bound and the patient has a caregiver at all 24 7 12 history approximately atrial fibrillation current rhythm is sinus 13 hypertension 14 hyperlipidemia 15 previous history of pneumonia and respiratory failure requiring prolonged hospitalization mechanical ventilation 16 history of recurrent UTIs, urine cultures is indicating Pseudomonas in her jaws and the patient is currently on IV cefepime.17 hypothyroidism 18 obstructive sleep apnea with an AHI of 78 maintained on a Pap on outpatient basis Plan: Continue current antibiotics, patient is on cefepime, continue for a total of 10 days, then discontinue Vital signs are stable, much less congested on today's exam, wean FiO2 BiPAP support as needed Continue with maintenance dose of Lasix No fever or chills, blood pressure stable Today's labs have been reviewed, orbital, slightly improved, No acute events overnight, maintain aspiration precautions, Continue tube feedings Stable transfer out of intensive care unit from pulmonary/critical care perspective I performed a history & physical examination of the patient and discussed their management with my nurse practitioner, Elsy De Guzman. I reviewed the nurse practitioner's note and agree with the documented findings and plan of care. Lung sounds are positive for diffuse wheezes throughout the lung huynh. The findings and the impression was discussed with the patient. I attest to the documentation by the nurse practitioner. Time with Patient: Less than 30
[2021-01-28 19:11] LABS: Glucose,Whole Blood 109 mg/dL (75-99)
[2021-01-29 00:22] LABS: Glucose,Whole Blood 118 mg/dL (75-99)
[2021-01-29 00:55] LABS: Glucose,Whole Blood 124 mg/dL (75-99)
[2021-01-29] MEDS: LATANOPROST 0.005% OPHTH DROPS 2.5 ML BTL BOTH EYES SCH ×2 (01:07→21:55)
[2021-01-29] MEDS: APIXABAN 2.5 MG TABLET PEG/G-TUBE SCH ×3 (01:14→21:56)
[2021-01-29] MEDS: risperiDONE 1 MG TAB PEG/G-TUBE SCH ×3 (01:15→21:55)
[2021-01-29] MEDS: levETIRAcetam 500 MG TAB PEG/G-TUBE SCH ×3 (01:15→21:55)
[2021-01-29] MEDS: MONTELUKAST 5 MG CHEWABLE PEG/G-TUBE SCH ×2 (01:15→21:56)
[2021-01-29] MEDS: VALPROIC ACID ORAL SOLN 250 MG/5 ML CUP PEG/G-TUBE SCH ×3 (01:15→21:55)
[2021-01-29] MEDS: INSULIN ASPART (NovoLOG) 100 UNIT/ML VIAL SQ SCH ×4 (01:18→18:27)
[2021-01-29] MEDS: LEVOTHYROXINE IVP 100 MCG/5 ML VIAL IV SCH (07:10)
[2021-01-29 07:15] LABS: Glucose,Whole Blood 127 mg/dL (75-99)
[2021-01-29] MEDS: CEFEPIME 2 GM in SODIUM CHLORIDE 0.9% 100 ML IVPB SCH ×3 (07:17→23:30)
[2021-01-29] MEDS: BUDESONIDE 0.25 MG/2 ML NEBU INHALATION SCH (07:25)
[2021-01-29] MEDS: FORMOTEROL FUMARATE 20 MCG/2 ML NEBU INHALATION SCH (07:25)
[2021-01-29] MEDS: FUROSEMIDE 20 MG TAB PO SCH (09:04)
[2021-01-29] MEDS: ATORVASTATIN 10 MG TAB PEG/G-TUBE SCH (09:04)
[2021-01-29] MEDS: PANTOPRAZOLE 40 MG/10 ML VIAL IV SCH (09:05)
[2021-01-29] MEDS: predniSONE 5 MG TAB PEG/G-TUBE SCH (09:30)
[2021-01-29 11:29] LABS: Glucose,Whole Blood 124 mg/dL (75-99)
--- NOTE | 2021-01-29 14:42 | P.PN ---
Progress Note - Text Progress Note Date: 01/29/21 Patient will require oxygen via nasal cannula at 4 L secondary to acute hypoxic respiratory failure and congestive heart failure with moderate pulmonary hypertension
--- NOTE | 2021-01-29 17:13 | P.PN ---
Subjective Progress Note Date: 01/29/21 This is a 80-year-old female patient, known to me from previous admissions, kn own to have multiple medical problems and comorbidities most significant a history of dementia along with schizophrenia with Parkinson's disease was been essentially bedridden and she has a 24-hour caregiver at home. Recently, the patient has developed a stage IV sacral decub ulcer and the patient was in the hospital yesterday for a debridement procedure that was done and the patient was discharged home. Discharge, the patient was noted to have seizure activity at home. Note that she has history of seizures and she has been maintained on Depakote on outpatient basis. She was given all of her medications with a caregiver without any interruption. Her seizure lasted for few minutes and the patient was postictal. Apparently she was having tonic-clonic activity as documented by the emergency department team. The patient in the emergency was evaluated. Mentation was altered. She was having twitching in her tongue and mouth area and it was suspected that she was having ongoing seizure activity. For that reason, the patient was started on propofol and the patient was intubated and placed on a mechanical ventilator for airway protection. Note that the patient apparently was having seizures in the past. She had to seizure activities back in October 2020. She sees a neurologist out of [facility]. She was seen by her neurologist recently and she has not skipped any of her Depakote doses. The patient was given a total of 1 mg Ativan in the emergency department. Her v alproic acid level was at 92. The patient was seen by neurology today and the patient was given 1 g every 12 hours and the neurologist asked to continue the Depakote. CAT scan of the brain was done in the emergency department showed no acute abnormalities. No reported fever. No reported neck stiffness. No reported aspiration. The patient had a white cell count of 8.4 with a hemoglobin of 10.2. This morning, it out with this patient in intensive care unit. She was on a mechanical ventilator. She was an assist-control at the rate of 14 with tidal volume of 375 and FiO2 of 50% with a PEEP of 5. Blood gas showed a pH of 7.54 with a pCO2 of 34 and pO2 166. Chest patient was somewhat limited as the patient has significant Scoliosis of the thoracic spine. Nevertheless, there was no airspace disease or consolidation. ET tube was in a good location. The patient had no significant orotracheal secretions. The patient remains hemodynamically stable. She was given a total of 2 L of IV fluids in the emergency department and she did not require any pressors. Her cardiac rhythm was sinus all of the patient has history of atrial fibrillation and she is maintained on anticoagulation with Eliquis. She also has obstructive sleep apnea and this was severe with an AHI of 76 and she was placed on APAP on outpatient basis. There is a month her various other comorbidities. 01/20/2021 the patient is being seen in follow-up in the intensive care unit. The patient got extubated yesterday and currently she is on a BiPAP at a pressure of 10/5 cm of water with an FiO2 of 60%. She is arousable. She is generating tidal volumes in the 550 range with a respiratory rate of 20. The bl ood gases from today showed a pH of 7.37 with a pCO2 of 48 empiric of 103. She is calm and comfortable while being on a BiPAP. Note that the patient postextubation she was placed on a BiPAP knowing that she has also severe obstructive sleep apnea. Chest x-ray from today shows some residual atelectatic changes and left lower lobe. Otherwise no acute abnormalities have been noted. Overnight, no seizure activity has been noted. The patient is free of any seizures for now. A EEG was done yesterday that showed abnormal findings with slowing suggestive of some mild encephalopathy. Meanwhile, the patient remains on Keppra 500 mg twice a day through her PEG tube and she is also on valproic a allen syrup. TSH is down to 10.1. Free T4 is at 1.84. Rest of the electrolytes all stable for now. She is arousable. Brunson cath is in place. IV fluids are running at the rate of 75 mL an hour. 01/21/2021, I'm seeing this patient for a follow-up. Postextubation, the patient did well initially and she was doing well on a BiPAP and the patient was also able to transition to oxygen by nasal cannula. Nevertheless, over the past 24 hours and specially over the past 12 hours, the patient's condition has gotten worse. Repeat chest x-ray from this morning is showing bilateral pulmonary infiltrates, patchy, involving the left upper lobe and the right lower lobe. Sputum cultures collected earlier returns supervisor to be positive for pseudomonas aeruginosa and the patient was started on IV cefepime. Currently she is on BiPAP at a pressure of 10/5 cm of water with an FiO2 of 50%. She is quite sugge stive the BiPAP. Nevertheless, she does lethargic and she seems to be more lethargic compared to yesterday. She opens her eyes upon termination she is following only simple commands. Hemodynamically stable on no pressors. No seizure activity has been noted. She is receiving enteral feeding for nutritional support and the PEG tube is functional at this point in time. Her white cell count is at 7.7. Her blood gases was done and FiO2 of 60% while the patient being on a BiPAP at a pressure of 10/5 in the blood case with a pH of 7.41 with a pCO2 of 46 and a pO2 of 144. Her pro-calcitonin level is at 0.07. Note that pseudomonas aeruginosa was also cultured and the patient's urine. On 01/22/2021 patient seen in follow-up in the intensive care unit, she is still lethargic, appears to be no acute distress, she is still on BiPAP support with pressures of 10/5 and FiO2 of 60%. Her pulse ox is around 93-95%, she is afebrile, her breathing is a bit more labored today, she had a chest x-ray completed today which showed worsening bilateral infiltrates with the possibility of a layering pleural effusion. She was given a dose of IV Lasix this morning 40 mg IV push and she is diuresing profusely, her oxygenation had since improved from 88% to 93% on FiO2 of 60%. Patient seems to be responding nicely to IV Lasix and she has been given an additional dose of 40 of Lasix this afternoon. She remains on cefepime for antibiotic coverage, her sputum and urine cultures were both positive for pseudomonas aeruginosa. Afebrile overnight, not requiring any vasopressor support. She is on 0.9 normal saline at a rate of 20 ML per hour. He slept 7 reviewed, her white count is 8.2, hemoglobin is 9.5, electrolytes are within normal limits, BUN is 50 creatinine 0.36. Patient is tolerating tube feedings, she is receiving vital AF at 45 with a goal of 45 and standard water flushes. On 01/25/2021 patient seen in follow-up in intensive care unit, this morning she is a bit more lethargic compared to yesterday's exam, however she is verbally responding, although she is confused. She is following basic commands. Denies any acute distress, she is currently off BiPAP support, currently on 4 L of oxygen her pulse ox is 92%, hemodynamically she is a bit hypotensive on today's vitals, with short in the 70s over 50s. After recycling the blood pressure cuff blood pressure is 85/81. Clinically patient although slightly somnolent, but she is warm and dry, she is on IV diuretics with Lasix 40 mg once daily, 0.4 L in the urine output in last 24 hours. No new chest x-ray today, no worsening dyspnea, diminished lung sounds at the bases, no wheezes or rhonchi. Patient remains on cefepime for evidence of Pseudomonas in her sputum and urine cultures. She's had no fever or chills. Patient is tolerating PEG tube feedings, she is currently receiving vital AF at 45 with a goal of 45 and standard water flushes. Abdomen is soft, however patient has not had a bowel movement in several days. Labs have been reviewed showing white blood cell count of 9.8, hemoglobin is 9.9, sodium is 137, potassium is 4.0, chloride is 95, CO2 36, BUN is 30, creatinine 0.48, LFTs are within normal limits On 01/27/2021 patient seen in follow-up in intensive care unit, this morning she is on BiPAP support with pressures of 10/5 and FiO2 of 60%. Lung sounds are positive for scattered rhonchi, patient has a weak cough, she is unable to expectorate any of the phlegm, BiPAP mask was removed, patient was placed on 6 L high flow nasal cannula, her pulse ox is 94%. In for pseudomonas in the sputum cultures and urine cultures. No fever overnight, this morning blood pressure is 91/68, patient remains on oral Lasix 20 mg daily. Today's chest x-ray has been reviewed showing bilateral infiltrates and pleural effusion. 24 hour fluid balance is +240. No increased swelling in bilateral lower extremities. The labs have been reviewed showing white blood cell count of 12.9, hemoglobin is 10.8. Potassium is 5.7, the rest of electrolytes were within normal limits, BUN is 38, creatinine 0.37. Patient is tolerating tube feedings, she is currently vital a EF at 45 ML per hour. On 01/28/2021 patient seen in follow-up in the intensive care unit, she is breathing comfortably, she is currently on 6 L of oxygen her pulse ox is 97%, FiO2 has been turned down to 4 L. She did wear BiPAP support last night, with pressures 10 and 5, and FiO2 of 40%. She has been afebrile, blood pressure is been stable, is currently 116/89. Breathing is nonlabored, much less congested on today's exam, she status post bronchoscopy with removal of bronchial secretions. She remains on cefepime. Bronchial wash cultures are still pending, Gram stain shows moderate PMNs, few gram-positive bacilli. She is tolerating oral feedings, she is on vital HP at 45 with a goal of 45, she is in sinus mechanism, the rate is controlled. Today's labs reviewed, her white blood cell count slightly improved and is down to 11.2, hemoglobin is 9.9, sodium is 144, potassium 4.0, chloride is 105, CO2 32, BUN is 37, creatinine 0.37. Patient remains on 5 mg of prednisone, and maintenance dose of Lasix 20 mg daily. Patient had a bowel movement, abdomen is soft. Nontender. 01/29/2021, the patient is doing well. The patient is alert and awake and communicating. She is on oxygen at 4 L per minute nasal cannula. White cell count is 11. He has a 37 with a creatinine of 0.7. Patient is also pneumonia pneumonia. The patient also has a bronchoscopy that showed corynebacterium species along with HSV in the vital cultures. She is completing course of IV cefepime. Corynebacterium was thought to be a colonizer. No specific complaints patient is tolerating enteral feeding for nutritional support. She has significant aortic stenosis and the patient has been adequately diuresed and the patient is currently on Lasix 20 mg by mouth daily. No abdominal distention. No diarrhea. No emesis changes she is resting comfortably in bed. No other significant events over the past 24 hours. The patient is back on prednisone 5 mg by mouth daily in addition to her outpatient medications. She is also on examination performance and Pulmicort overestimates twice a day and both medications will be discontinued and the patient was switched to albuterol nebulized treatments 4 times a day and when necessary. She remains on long-term and coagulation with Eliquis 2.5 mg by mouth twice a day. Objective - Vital Signs Vital signs: Vital Signs Temp 98.0 F 01/29/21 14:00 Pulse 82 01/29/21 14:54 Resp 16 01/29/21 14:00 BP 129/63 01/29/21 14:00 Pulse Ox 90 L 01/29/21 14:54 Intake & Output 01/28/21 01/29/21 01/29/21 18:59 06:59 18:59 Intake Total 820 60 50 Output Total 600 700 Balance 220 -640 50 Weight 62.4 kg 62.4 kg Intake: IV 160 60 0.9 NS 60 60 Cefepime 100 Tube Feeding 540 50 Other 120 Output: Urine 600 700 Other: Voiding Method Indwelling Catheter Indwelling Catheter # Bowel Movements 1 ABP, PAP, CO, CI - Last Documented Arterial Blood Pressure 122/41 - Exam Calm and comfortable, the patient is resting comfortably on 6 liters NC, she is arousable. Head exam was generally normal. There was no scleral icterus or corneal arcus. Mucous membranes were moist. Neck was supple and without jugular venous distension, thyromegaly, or carotid bruits. Carotids were easily palpable bilaterally. There was no adenopathy. Orogastric and aortic tube are both in place. Lungs are diminished and the patient is on obvious thoracic and thoracolumbar kyphoscoliosis with cervical kyphosis. Rest of the equal and symmetrical. No wheezes or rhonchi. Cardiac exam revealed the PMI to be normally situated and sized. The rhythm was regular and no extrasystoles were noted during several minutes of auscultation. The first and second heart sounds were normal and physiologic splitting of the second heart sound was noted. There were systolic ejection murmur consistent with aortic stenosis , rubs, clicks, or gallops. Abdominal exam revealed normal bowel sounds. The abdomen was soft, non-tender, and without masses, organomegaly, or appreciable enlargement of the abdominal aorta. The patient is a PEG tube in place and the PEG tube site is dry clean and intact and there is no direct tenderness or rebound tensile guarding. Bowel sounds are hypoactive at the present Examination of the extremities revealed easily palpable radial, femoral and pedal pulses. There was no cyanosis, clubbing or edema. Examination of the skin revealed no evidence of significant rashes, suspicious appearing nevi or other concerning lesions. 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 Neurologically the patient is following some simple commands. No focal neurological deficit. - Labs CBC & Chem 7: 01/28/21 04:41 01/28/21 04:41 Labs: Abnormal Lab Results - Last 24 Hours (Table) 01/28/21 01/29/21 01/29/21 Range/Units 19:08 00:20 00:54 POC Glucose (mg/dL) 109 H 118 H 124 H (75-99) mg/dL 01/29/21 01/29/21 Range/Units 07:13 11:28 POC Glucose (mg/dL) 127 H 124 H (75-99) mg/dL Microbiology - Last 24 Hours (Table) 01/27/21 09:50 Gram Stain - Final Bronchial Washings - Random Bronchial Washings Culture - Final Corynebacterium striatum 01/27/21 09:50 Acid Fast Bacilli Smear - Final Bronchial Washings - Random Acid Fast Bacilli Culture - Preliminary Assessment and Plan Plan: 1 altered mentation secondary to breakthrough seizure and the patient with known history of epilepsy was maintained on Depakote on outpatient basis. The patient is currently free of any seizures maintained on a combination of Keppra and valproic acid. She remains lethargic yet arousable. No seizure activity has been noted and the patient remains on Keppra and valproic acid. Patient remains seizure-free 2 acute bilateral pneumonia, consider hospital-acquired pneumonia with pseudomonas aeruginosa, , currently on IV cefepime. the bronchoscopy was done with therapeutic it was suctioning and the culture was positive for corynebacterium. This is likely a colonizer. We'll complete a course of cefepime to complete a total of 10 day course. 3 acute hypoxic respiratory failure, due to a combination of a pneumonia and some fluid overload. Currently she is off the BiPAP and the patient is currently on 4 L of oxygen by nasal cannula. Nevertheless, overnight, I would like her to go back on a BiPAP knowing that she has a severe obstructive sleep apnea. She is improving. She is on IV Lasix. She is also on IV cefepime. She is receiving bronchodilators. 4 dementia 5 Parkinson's disease, mild developmental delay 6 schizoaffective disorder 7 history of epilepsy 8 history of moderate degree of aortic stenosis and the patient has an obvious cardiac murmur on examination. Based on previous echocardiogram, ejection fraction was around 50-55% and the patient has moderate degree of pulmonary hypertension 9 stage IV left buttocks ulcers post-debridement without evidence of any acute infection. Reevaluation of the wound shows extensive that tissue that needs to be debrided again and will ask the surgeon to reevaluate the wound. 10 esophageal stricture and the patient has a PEG tube in place for enteral feeding and nutritional support 11 abnormal gait due to our concern is and then dementia and the patient is wheelchair-bound and the patient has a caregiver at all 12 history approximately atrial fibrillation current rhythm is sinus 13 hypertension 14 hyperlipidemia 15 previous history of pneumonia and respiratory failure requiring prolonged hospitalization mechanical ventilation 16 history of recurrent UTIs, urine cultures is indicating Pseudomonas , currently on IV cefepime 17 hypothyroidism 18 obstructive sleep apnea with an AHI of 78 maintained on a Pap on outpatient basis Plan: Continue BiPAP supportnighttime and the patient will be kept the patient on oxygen and the patient will be weaned down to maintain a saturation above 90%. Currently on 4 L. Chest x-ray stable Lasix 20 mg by mouth daily Continue cefepime, , total of 10 day course Continue Depakote and Keppra for seizure control Continue bronchodilators, discontinue the Perforomist and Pulmicort and put the patient on of breath and is currently [id number] Continue PEG tube feedings Colace Supp Wound care to her stage IV decubitus ulcers Follow-up chest x-ray tomorrow Follow-up labs electrolytes and renal profile Maintain aspiration precautions Overall prognosis guarded discharge planning is in progress physical continue to follow.
[2021-01-29 18:09] LABS: Glucose,Whole Blood 111 mg/dL (75-99)
[2021-01-29] MEDS: ALBUTEROL NEBULIZED 2.5 MG/3 ML INHALATION SCH (20:41)
[2021-01-30 00:12] LABS: Glucose,Whole Blood 113 mg/dL (75-99)
[2021-01-30] MEDS: INSULIN ASPART (NovoLOG) 100 UNIT/ML VIAL SQ SCH ×5 (00:19→23:34)
[2021-01-30 06:09] LABS: Glucose,Whole Blood 114 mg/dL (75-99)
[2021-01-30] MEDS: CEFEPIME 2 GM in SODIUM CHLORIDE 0.9% 100 ML IVPB SCH ×3 (06:15→23:15)
[2021-01-30] MEDS: ALBUTEROL NEBULIZED 2.5 MG/3 ML INHALATION SCH ×4 (07:24→19:18)
[2021-01-30] MEDS: risperiDONE 1 MG TAB PEG/G-TUBE SCH ×2 (09:14→23:12)
[2021-01-30] MEDS: predniSONE 5 MG TAB PEG/G-TUBE SCH (09:14)
[2021-01-30] MEDS: ATORVASTATIN 10 MG TAB PEG/G-TUBE SCH (09:14)
[2021-01-30] MEDS: FUROSEMIDE 20 MG TAB PO SCH (09:14)
[2021-01-30] MEDS: APIXABAN 2.5 MG TABLET PEG/G-TUBE SCH ×2 (09:14→23:12)
[2021-01-30] MEDS: LEVOTHYROXINE IVP 100 MCG/5 ML VIAL IV SCH (09:14)
[2021-01-30] MEDS: VALPROIC ACID ORAL SOLN 250 MG/5 ML CUP PEG/G-TUBE SCH ×2 (09:14→23:12)
[2021-01-30] MEDS: PANTOPRAZOLE 40 MG/10 ML VIAL IV SCH (09:15)
[2021-01-30] MEDS: levETIRAcetam 500 MG TAB PEG/G-TUBE SCH ×2 (09:55→23:12)
[2021-01-30 11:18] LABS: Glucose,Whole Blood 112 mg/dL (75-99)
--- NOTE | 2021-01-30 13:04 | P.PN ---
Subjective Progress Note Date: 01/30/21 This is a 80-year-old female patient, known to me from previous admissions, kn own to have multiple medical problems and comorbidities most significant a history of dementia along with schizophrenia with Parkinson's disease was been essentially bedridden and she has a 24-hour caregiver at home. Recently, the patient has developed a stage IV sacral decub ulcer and the patient was in the hospital yesterday for a debridement procedure that was done and the patient was discharged home. Discharge, the patient was noted to have seizure activity at home. Note that she has history of seizures and she has been maintained on Depakote on outpatient basis. She was given all of her medications with a caregiver without any interruption. Her seizure lasted for few minutes and the patient was postictal. Apparently she was having tonic-clonic activity as documented by the emergency department team. The patient in the emergency was evaluated. Mentation was altered. She was having twitching in her tongue and mouth area and it was suspected that she was having ongoing seizure activity. For that reason, the patient was started on propofol and the patient was intubated and placed on a mechanical ventilator for airway protection. Note that the patient apparently was having seizures in the past. She had to seizure activities back in October 2020. She sees a neurologist out of [facility]. She was seen by her neurologist recently and she has not skipped any of her Depakote doses. The patient was given a total of 1 mg Ativan in the emergency department. Her v alproic acid level was at 92. The patient was seen by neurology today and the patient was given 1 g every 12 hours and the neurologist asked to continue the Depakote. CAT scan of the brain was done in the emergency department showed no acute abnormalities. No reported fever. No reported neck stiffness. No reported aspiration. The patient had a white cell count of 8.4 with a hemoglobin of 10.2. This morning, it out with this patient in intensive care unit. She was on a mechanical ventilator. She was an assist-control at the rate of 14 with tidal volume of 375 and FiO2 of 50% with a PEEP of 5. Blood gas showed a pH of 7.54 with a pCO2 of 34 and pO2 166. Chest patient was somewhat limited as the patient has significant Scoliosis of the thoracic spine. Nevertheless, there was no airspace disease or consolidation. ET tube was in a good location. The patient had no significant orotracheal secretions. The patient remains hemodynamically stable. She was given a total of 2 L of IV fluids in the emergency department and she did not require any pressors. Her cardiac rhythm was sinus all of the patient has history of atrial fibrillation and she is maintained on anticoagulation with Eliquis. She also has obstructive sleep apnea and this was severe with an AHI of 76 and she was placed on APAP on outpatient basis. There is a month her various other comorbidities. 01/20/2021 the patient is being seen in follow-up in the intensive care unit. The patient got extubated yesterday and currently she is on a BiPAP at a pressure of 10/5 cm of water with an FiO2 of 60%. She is arousable. She is generating tidal volumes in the 550 range with a respiratory rate of 20. The bl ood gases from today showed a pH of 7.37 with a pCO2 of 48 empiric of 103. She is calm and comfortable while being on a BiPAP. Note that the patient postextubation she was placed on a BiPAP knowing that she has also severe obstructive sleep apnea. Chest x-ray from today shows some residual atelectatic changes and left lower lobe. Otherwise no acute abnormalities have been noted. Overnight, no seizure activity has been noted. The patient is free of any seizures for now. A EEG was done yesterday that showed abnormal findings with slowing suggestive of some mild encephalopathy. Meanwhile, the patient remains on Keppra 500 mg twice a day through her PEG tube and she is also on valproic a allen syrup. TSH is down to 10.1. Free T4 is at 1.84. Rest of the electrolytes all stable for now. She is arousable. Brunson cath is in place. IV fluids are running at the rate of 75 mL an hour. 01/21/2021, I'm seeing this patient for a follow-up. Postextubation, the patient did well initially and she was doing well on a BiPAP and the patient was also able to transition to oxygen by nasal cannula. Nevertheless, over the past 24 hours and specially over the past 12 hours, the patient's condition has gotten worse. Repeat chest x-ray from this morning is showing bilateral pulmonary infiltrates, patchy, involving the left upper lobe and the right lower lobe. Sputum cultures collected earlier flange turner to be positive for pseudomonas aeruginosa and the patient was started on IV cefepime. Currently she is on BiPAP at a pressure of 10/5 cm of water with an FiO2 of 50%. She is quite sugge stive the BiPAP. Nevertheless, she does lethargic and she seems to be more lethargic compared to yesterday. She opens her eyes upon termination she is following only simple commands. Hemodynamically stable on no pressors. No seizure activity has been noted. She is receiving enteral feeding for nutritional support and the PEG tube is functional at this point in time. Her white cell count is at 7.7. Her blood gases was done and FiO2 of 60% while the patient being on a BiPAP at a pressure of 10/5 in the blood case with a pH of 7.41 with a pCO2 of 46 and a pO2 of 144. Her pro-calcitonin level is at 0.07. Note that pseudomonas aeruginosa was also cultured and the patient's urine. On 01/22/2021 patient seen in follow-up in the intensive care unit, she is still lethargic, appears to be no acute distress, she is still on BiPAP support with pressures of 10/5 and FiO2 of 60%. Her pulse ox is around 93-95%, she is afebrile, her breathing is a bit more labored today, she had a chest x-ray completed today which showed worsening bilateral infiltrates with the possibility of a layering pleural effusion. She was given a dose of IV Lasix this morning 40 mg IV push and she is diuresing profusely, her oxygenation had since improved from 88% to 93% on FiO2 of 60%. Patient seems to be responding nicely to IV Lasix and she has been given an additional dose of 40 of Lasix this afternoon. She remains on cefepime for antibiotic coverage, her sputum and urine cultures were both positive for pseudomonas aeruginosa. Afebrile overnight, not requiring any vasopressor support. She is on 0.9 normal saline at a rate of 20 ML per hour. He slept 7 reviewed, her white count is 8.2, hemoglobin is 9.5, electrolytes are within normal limits, BUN is 50 creatinine 0.36. Patient is tolerating tube feedings, she is receiving vital AF at 45 with a goal of 45 and standard water flushes. On 01/25/2021 patient seen in follow-up in intensive care unit, this morning she is a bit more lethargic compared to yesterday's exam, however she is verbally responding, although she is confused. She is following basic commands. Denies any acute distress, she is currently off BiPAP support, currently on 4 L of oxygen her pulse ox is 92%, hemodynamically she is a bit hypotensive on today's vitals, with short in the 70s over 50s. After recycling the blood pressure cuff blood pressure is 85/81. Clinically patient although slightly somnolent, but she is warm and dry, she is on IV diuretics with Lasix 40 mg once daily, 0.4 L in the urine output in last 24 hours. No new chest x-ray today, no worsening dyspnea, diminished lung sounds at the bases, no wheezes or rhonchi. Patient remains on cefepime for evidence of Pseudomonas in her sputum and urine cultures. She's had no fever or chills. Patient is tolerating PEG tube feedings, she is currently receiving vital AF at 45 with a goal of 45 and standard water flushes. Abdomen is soft, however patient has not had a bowel movement in several days. Labs have been reviewed showing white blood cell count of 9.8, hemoglobin is 9.9, sodium is 137, potassium is 4.0, chloride is 95, CO2 36, BUN is 30, creatinine 0.48, LFTs are within normal limits On 01/27/2021 patient seen in follow-up in intensive care unit, this morning she is on BiPAP support with pressures of 10/5 and FiO2 of 60%. Lung sounds are positive for scattered rhonchi, patient has a weak cough, she is unable to expectorate any of the phlegm, BiPAP mask was removed, patient was placed on 6 L high flow nasal cannula, her pulse ox is 94%. In for pseudomonas in the sputum cultures and urine cultures. No fever overnight, this morning blood pressure is 91/68, patient remains on oral Lasix 20 mg daily. Today's chest x-ray has been reviewed showing bilateral infiltrates and pleural effusion. 24 hour fluid balance is +240. No increased swelling in bilateral lower extremities. The labs have been reviewed showing white blood cell count of 12.9, hemoglobin is 10.8. Potassium is 5.7, the rest of electrolytes were within normal limits, BUN is 38, creatinine 0.37. Patient is tolerating tube feedings, she is currently vital a EF at 45 ML per hour. On 01/28/2021 patient seen in follow-up in the intensive care unit, she is breathing comfortably, she is currently on 6 L of oxygen her pulse ox is 97%, FiO2 has been turned down to 4 L. She did wear BiPAP support last night, with pressures 10 and 5, and FiO2 of 40%. She has been afebrile, blood pressure is been stable, is currently 116/89. Breathing is nonlabored, much less congested on today's exam, she status post bronchoscopy with removal of bronchial secretions. She remains on cefepime. Bronchial wash cultures are still pending, Gram stain shows moderate PMNs, few gram-positive bacilli. She is tolerating oral feedings, she is on vital HP at 45 with a goal of 45, she is in sinus mechanism, the rate is controlled. Today's labs reviewed, her white blood cell count slightly improved and is down to 11.2, hemoglobin is 9.9, sodium is 144, potassium 4.0, chloride is 105, CO2 32, BUN is 37, creatinine 0.37. Patient remains on 5 mg of prednisone, and maintenance dose of Lasix 20 mg daily. Patient had a bowel movement, abdomen is soft. Nontender. 01/29/2021, the patient is doing well. The patient is alert and awake and communicating. She is on oxygen at 4 L per minute nasal cannula. White cell count is 11. He has a 37 with a creatinine of 0.7. Patient is also pneumonia pneumonia. The patient also has a bronchoscopy that showed corynebacterium species along with HSV in the vital cultures. She is completing course of IV cefepime. Corynebacterium was thought to be a colonizer. No specific complaints patient is tolerating enteral feeding for nutritional support. She has significant aortic stenosis and the patient has been adequately diuresed and the patient is currently on Lasix 20 mg by mouth daily. No abdominal distention. No diarrhea. No emesis changes she is resting comfortably in bed. No other significant events over the past 24 hours. The patient is back on prednisone 5 mg by mouth daily in addition to her outpatient medications. She is also on examination performance and Pulmicort overestimates twice a day and both medications will be discontinued and the patient was switched to albuterol nebulized treatments 4 times a day and when necessary. She remains on long-term and coagulation with Eliquis 2.5 mg by mouth twice a day. A 2020, the patient is on the medical floor. Doing well. No specific complaints. He remains on the same treatment. She is on oral Lasix 20 mg by mouth daily. She is also on chronic prednisone treatment at 5 mg a day. She remains on IV cefepime completing a ten-day course. She is also on long-term and coagulation with Eliquis 2.5 mg by mouth twice a day. No respiratory distress. No fever. No chills. No aspiration. Tolerating enteral feeding for nutritional support and effective dysfunctional. She is communicating. She is active. She remains on oxygen at 3 L with a pulse of 79%. She is afebrile. Objective - Vital Signs Vital signs: Vital Signs Temp 97.4 F L 01/30/21 07:45 Pulse 89 01/30/21 12:50 Resp 22 01/30/21 07:45 BP 104/66 01/30/21 12:50 Pulse Ox 99 01/30/21 12:50 Intake & Output 01/29/21 01/30/21 01/30/21 18:59 06:59 18:59 Intake Total 645 540 135 Output Total 580 300 Balance 65 240 135 Weight 62.4 kg 64.5 kg Intake: IV 55 0.9 NS 55 Tube Feeding 500 540 135 Other 90 Output: Urine 580 300 Other: Voiding Method Indwelling Catheter Indwelling Catheter Indwelling Catheter ABP, PAP, CO, CI - Last Documented Arterial Blood Pressure 122/41 - Exam Calm and comfortable, the patient is resting comfortably on 6 liters NC, she is arousable. Head exam was generally normal. There was no scleral icterus or corneal arcus. Mucous membranes were moist. Neck was supple and without jugular venous distension, thyromegaly, or carotid bruits. Carotids were easily palpable bilaterally. There was no adenopathy. Orogastric and aortic tube are both in place. Lungs are diminished and the patient is on obvious thoracic and thoracolumbar kyphoscoliosis with cervical kyphosis. Rest of the equal and symmetrical. No wheezes or rhonchi. Cardiac exam revealed the PMI to be normally situated and sized. The rhythm was regular and no extrasystoles were noted during several minutes of auscultation. The first and second heart sounds were normal and physiologic splitting of the second heart sound was noted. There were systolic ejection murmur consistent with aortic stenosis , rubs, clicks, or gallops. Abdominal exam revealed normal bowel sounds. The abdomen was soft, non-tender, and without masses, organomegaly, or appreciable enlargement of the abdominal aorta. The patient is a PEG tube in place and the PEG tube site is dry clean and intact and there is no direct tenderness or rebound tensile guarding. Bowel sounds are hypoactive at the present Examination of the extremities revealed easily palpable radial, femoral and pedal pulses. There was no cyanosis, clubbing or edema. Examination of the skin revealed no evidence of significant rashes, suspicious appearing nevi or other concerning lesions. 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 Neurologically the patient is following some simple commands. No focal neurological deficit. - Labs CBC & Chem 7: 01/28/21 04:41 01/28/21 04:41 Labs: Abnormal Lab Results - Last 24 Hours (Table) 01/29/21 01/30/21 01/30/21 Range/Units 18:08 00:11 06:07 POC Glucose (mg/dL) 111 H 113 H 114 H (75-99) mg/dL 01/30/21 Range/Units 11:17 POC Glucose (mg/dL) 112 H (75-99) mg/dL Microbiology - Last 24 Hours (Table) 01/27/21 09:50 Gram Stain - Final Bronchial Washings - Random Bronchial Washings Culture - Final Corynebacterium striatum Assessment and Plan Plan: 1 altered mentation secondary to breakthrough seizure and the patient with known history of epilepsy was maintained on Depakote on outpatient basis. The patient is currently free of any seizures maintained on a combination of Keppra and valproic acid. She remains lethargic yet arousable. No seizure activity has been noted and the patient remains on Keppra and valproic acid. Patient remains seizure-free 2 acute bilateral pneumonia, consider hospital-acquired pneumonia with pseudomonas aeruginosa, , currently on IV cefepime. the bronchoscopy was done with therapeutic it was suctioning and the culture was positive for corynebacterium. This is likely a colonizer. We'll complete a course of cefepime to complete a total of 10 day course. 3 acute hypoxic respiratory failure, due to a combination of a pneumonia and some fluid overload. Currently she is off the BiPAP and the patient is currently on 3 L of oxygen by nasal cannula. Nevertheless, overnight, I would like her to go back on a BiPAP knowing that she has a severe obstructive sleep apnea. She is improving. She is on IV Lasix. She is also on IV cefepime. She is receiving bronchodilators. 4 dementia 5 Parkinson's disease, mild developmental delay 6 schizoaffective disorder 7 history of epilepsy 8 history of moderate degree of aortic stenosis and the patient has an obvious cardiac murmur on examination. Based on previous echocardiogram, ejection fraction was around 50-55% and the patient has moderate degree of pulmonary hypertension 9 stage IV left buttocks ulcers post-debridement without evidence of any acute infection. Reevaluation of the wound shows extensive that tissue that needs to be debrided again and will ask the surgeon to reevaluate the wound. 10 esophageal stricture and the patient has a PEG tube in place for enteral feeding and nutritional support 11 abnormal gait due to our concern is and then dementia and the patient is wheelchair-bound and the patient has a caregiver at all 12 history approximately atrial fibrillation current rhythm is sinus 13 hypertension 14 hyperlipidemia 15 previous history of pneumonia and respiratory failure requiring prolonged hospitalization mechanical ventilation 16 history of recurrent UTIs, urine cultures is indicating Pseudomonas , currently on IV cefepime 17 hypothyroidism 18 obstructive sleep apnea with an AHI of 78 maintained on a Pap on outpatient basis Plan: Clinically stable Continue Lasix 20 mg by mouth daily Continue cefepime, , total of 10 day course Continue Depakote and Keppra for seizure control Continue bronchodilators, discontinue the Perforomist and Pulmicort and put the patient on of breath and is currently [id number] Continue PEG tube feedings Colace Supp Wound care to her stage IV decubitus ulcers Follow-up chest x-ray tomorrow Follow-up labs electrolytes and renal profile Maintain aspiration precautions Overall prognosis guarded discharge planning is in progress physical continue to follow. Patient was transferred out of the intensive care unit the condition is stable for now. She has been weaned off oxygen 3 L per minute nasal cannula.
[2021-01-30 16:30] LABS: Glucose,Whole Blood 121 mg/dL (75-99)
[2021-01-30] MEDS: MONTELUKAST 5 MG CHEWABLE PEG/G-TUBE SCH (23:12)
[2021-01-30] MEDS: LATANOPROST 0.005% OPHTH DROPS 2.5 ML BTL BOTH EYES SCH (23:15)
[2021-01-30 23:35] LABS: Glucose,Whole Blood 125 mg/dL (75-99)
[2021-01-31] MEDS: INSULIN ASPART (NovoLOG) 100 UNIT/ML VIAL SQ SCH ×3 (05:33→17:36)
[2021-01-31 05:34] LABS: Glucose,Whole Blood 107 mg/dL (75-99)
[2021-01-31] MEDS: CEFEPIME 2 GM in SODIUM CHLORIDE 0.9% 100 ML IVPB SCH ×2 (05:43→13:45)
[2021-01-31] MEDS: ALBUTEROL NEBULIZED 2.5 MG/3 ML INHALATION SCH ×4 (07:15→20:27)
[2021-01-31] MEDS: levETIRAcetam 500 MG TAB PEG/G-TUBE SCH ×2 (09:21→22:01)
[2021-01-31] MEDS: ATORVASTATIN 10 MG TAB PEG/G-TUBE SCH (09:21)
[2021-01-31] MEDS: FUROSEMIDE 20 MG TAB PO SCH (09:21)
[2021-01-31] MEDS: VALPROIC ACID ORAL SOLN 250 MG/5 ML CUP PEG/G-TUBE SCH ×2 (09:21→22:01)
[2021-01-31] MEDS: predniSONE 5 MG TAB PEG/G-TUBE SCH (09:21)
[2021-01-31] MEDS: PANTOPRAZOLE 40 MG/10 ML VIAL IV SCH (09:22)
[2021-01-31] MEDS: APIXABAN 2.5 MG TABLET PEG/G-TUBE SCH ×2 (09:22→22:02)
[2021-01-31] MEDS: LEVOTHYROXINE IVP 100 MCG/5 ML VIAL IV SCH (09:22)
[2021-01-31] MEDS: risperiDONE 1 MG TAB PEG/G-TUBE SCH ×2 (09:22→22:01)
--- NOTE | 2021-01-31 10:34 | P.PN ---
Subjective Progress Note Date: 01/31/21 This is a 80-year-old female patient, known to me from previous admissions, kn own to have multiple medical problems and comorbidities most significant a history of dementia along with schizophrenia with Parkinson's disease was been essentially bedridden and she has a 24-hour caregiver at home. Recently, the patient has developed a stage IV sacral decub ulcer and the patient was in the hospital yesterday for a debridement procedure that was done and the patient was discharged home. Discharge, the patient was noted to have seizure activity at home. Note that she has history of seizures and she has been maintained on Depakote on outpatient basis. She was given all of her medications with a caregiver without any interruption. Her seizure lasted for few minutes and the patient was postictal. Apparently she was having tonic-clonic activity as documented by the emergency department team. The patient in the emergency was evaluated. Mentation was altered. She was having twitching in her tongue and mouth area and it was suspected that she was having ongoing seizure activity. For that reason, the patient was started on propofol and the patient was intubated and placed on a mechanical ventilator for airway protection. Note that the patient apparently was having seizures in the past. She had to seizure activities back in October 2020. She sees a neurologist out of [facility]. She was seen by her neurologist recently and she has not skipped any of her Depakote doses. The patient was given a total of 1 mg Ativan in the emergency department. Her v alproic acid level was at 92. The patient was seen by neurology today and the patient was given 1 g every 12 hours and the neurologist asked to continue the Depakote. CAT scan of the brain was done in the emergency department showed no acute abnormalities. No reported fever. No reported neck stiffness. No reported aspiration. The patient had a white cell count of 8.4 with a hemoglobin of 10.2. This morning, it out with this patient in intensive care unit. She was on a mechanical ventilator. She was an assist-control at the rate of 14 with tidal volume of 375 and FiO2 of 50% with a PEEP of 5. Blood gas showed a pH of 7.54 with a pCO2 of 34 and pO2 166. Chest patient was somewhat limited as the patient has significant Scoliosis of the thoracic spine. Nevertheless, there was no airspace disease or consolidation. ET tube was in a good location. The patient had no significant orotracheal secretions. The patient remains hemodynamically stable. She was given a total of 2 L of IV fluids in the emergency department and she did not require any pressors. Her cardiac rhythm was sinus all of the patient has history of atrial fibrillation and she is maintained on anticoagulation with Eliquis. She also has obstructive sleep apnea and this was severe with an AHI of 76 and she was placed on APAP on outpatient basis. There is a month her various other comorbidities. 01/20/2021 the patient is being seen in follow-up in the intensive care unit. The patient got extubated yesterday and currently she is on a BiPAP at a pressure of 10/5 cm of water with an FiO2 of 60%. She is arousable. She is generating tidal volumes in the 550 range with a respiratory rate of 20. The bl ood gases from today showed a pH of 7.37 with a pCO2 of 48 empiric of 103. She is calm and comfortable while being on a BiPAP. Note that the patient postextubation she was placed on a BiPAP knowing that she has also severe obstructive sleep apnea. Chest x-ray from today shows some residual atelectatic changes and left lower lobe. Otherwise no acute abnormalities have been noted. Overnight, no seizure activity has been noted. The patient is free of any seizures for now. A EEG was done yesterday that showed abnormal findings with slowing suggestive of some mild encephalopathy. Meanwhile, the patient remains on Keppra 500 mg twice a day through her PEG tube and she is also on valproic a allen syrup. TSH is down to 10.1. Free T4 is at 1.84. Rest of the electrolytes all stable for now. She is arousable. Brunson cath is in place. IV fluids are running at the rate of 75 mL an hour. 01/21/2021, I'm seeing this patient for a follow-up. Postextubation, the patient did well initially and she was doing well on a BiPAP and the patient was also able to transition to oxygen by nasal cannula. Nevertheless, over the past 24 hours and specially over the past 12 hours, the patient's condition has gotten worse. Repeat chest x-ray from this morning is showing bilateral pulmonary infiltrates, patchy, involving the left upper lobe and the right lower lobe. Sputum cultures collected earlier barrel turner to be positive for pseudomonas aeruginosa and the patient was started on IV cefepime. Currently she is on BiPAP at a pressure of 10/5 cm of water with an FiO2 of 50%. She is quite sugge stive the BiPAP. Nevertheless, she does lethargic and she seems to be more lethargic compared to yesterday. She opens her eyes upon termination she is following only simple commands. Hemodynamically stable on no pressors. No seizure activity has been noted. She is receiving enteral feeding for nutritional support and the PEG tube is functional at this point in time. Her white cell count is at 7.7. Her blood gases was done and FiO2 of 60% while the patient being on a BiPAP at a pressure of 10/5 in the blood case with a pH of 7.41 with a pCO2 of 46 and a pO2 of 144. Her pro-calcitonin level is at 0.07. Note that pseudomonas aeruginosa was also cultured and the patient's urine. On 01/22/2021 patient seen in follow-up in the intensive care unit, she is still lethargic, appears to be no acute distress, she is still on BiPAP support with pressures of 10/5 and FiO2 of 60%. Her pulse ox is around 93-95%, she is afebrile, her breathing is a bit more labored today, she had a chest x-ray completed today which showed worsening bilateral infiltrates with the possibility of a layering pleural effusion. She was given a dose of IV Lasix this morning 40 mg IV push and she is diuresing profusely, her oxygenation had since improved from 88% to 93% on FiO2 of 60%. Patient seems to be responding nicely to IV Lasix and she has been given an additional dose of 40 of Lasix this afternoon. She remains on cefepime for antibiotic coverage, her sputum and urine cultures were both positive for pseudomonas aeruginosa. Afebrile overnight, not requiring any vasopressor support. She is on 0.9 normal saline at a rate of 20 ML per hour. He slept 7 reviewed, her white count is 8.2, hemoglobin is 9.5, electrolytes are within normal limits, BUN is 50 creatinine 0.36. Patient is tolerating tube feedings, she is receiving vital AF at 45 with a goal of 45 and standard water flushes. On 01/25/2021 patient seen in follow-up in intensive care unit, this morning she is a bit more lethargic compared to yesterday's exam, however she is verbally responding, although she is confused. She is following basic commands. Denies any acute distress, she is currently off BiPAP support, currently on 4 L of oxygen her pulse ox is 92%, hemodynamically she is a bit hypotensive on today's vitals, with short in the 70s over 50s. After recycling the blood pressure cuff blood pressure is 85/81. Clinically patient although slightly somnolent, but she is warm and dry, she is on IV diuretics with Lasix 40 mg once daily, 0.4 L in the urine output in last 24 hours. No new chest x-ray today, no worsening dyspnea, diminished lung sounds at the bases, no wheezes or rhonchi. Patient remains on cefepime for evidence of Pseudomonas in her sputum and urine cultures. She's had no fever or chills. Patient is tolerating PEG tube feedings, she is currently receiving vital AF at 45 with a goal of 45 and standard water flushes. Abdomen is soft, however patient has not had a bowel movement in several days. Labs have been reviewed showing white blood cell count of 9.8, hemoglobin is 9.9, sodium is 137, potassium is 4.0, chloride is 95, CO2 36, BUN is 30, creatinine 0.48, LFTs are within normal limits On 01/27/2021 patient seen in follow-up in intensive care unit, this morning she is on BiPAP support with pressures of 10/5 and FiO2 of 60%. Lung sounds are positive for scattered rhonchi, patient has a weak cough, she is unable to expectorate any of the phlegm, BiPAP mask was removed, patient was placed on 6 L high flow nasal cannula, her pulse ox is 94%. In for pseudomonas in the sputum cultures and urine cultures. No fever overnight, this morning blood pressure is 91/68, patient remains on oral Lasix 20 mg daily. Today's chest x-ray has been reviewed showing bilateral infiltrates and pleural effusion. 24 hour fluid balance is +240. No increased swelling in bilateral lower extremities. The labs have been reviewed showing white blood cell count of 12.9, hemoglobin is 10.8. Potassium is 5.7, the rest of electrolytes were within normal limits, BUN is 38, creatinine 0.37. Patient is tolerating tube feedings, she is currently vital a EF at 45 ML per hour. On 01/28/2021 patient seen in follow-up in the intensive care unit, she is breathing comfortably, she is currently on 6 L of oxygen her pulse ox is 97%, FiO2 has been turned down to 4 L. She did wear BiPAP support last night, with pressures 10 and 5, and FiO2 of 40%. She has been afebrile, blood pressure is been stable, is currently 116/89. Breathing is nonlabored, much less congested on today's exam, she status post bronchoscopy with removal of bronchial secretions. She remains on cefepime. Bronchial wash cultures are still pending, Gram stain shows moderate PMNs, few gram-positive bacilli. She is tolerating oral feedings, she is on vital HP at 45 with a goal of 45, she is in sinus mechanism, the rate is controlled. Today's labs reviewed, her white blood cell count slightly improved and is down to 11.2, hemoglobin is 9.9, sodium is 144, potassium 4.0, chloride is 105, CO2 32, BUN is 37, creatinine 0.37. Patient remains on 5 mg of prednisone, and maintenance dose of Lasix 20 mg daily. Patient had a bowel movement, abdomen is soft. Nontender. 01/29/2021, the patient is doing well. The patient is alert and awake and communicating. She is on oxygen at 4 L per minute nasal cannula. White cell count is 11. He has a 37 with a creatinine of 0.7. Patient is also pneumonia pneumonia. The patient also has a bronchoscopy that showed corynebacterium species along with HSV in the vital cultures. She is completing course of IV cefepime. Corynebacterium was thought to be a colonizer. No specific complaints patient is tolerating enteral feeding for nutritional support. She has significant aortic stenosis and the patient has been adequately diuresed and the patient is currently on Lasix 20 mg by mouth daily. No abdominal distention. No diarrhea. No emesis changes she is resting comfortably in bed. No other significant events over the past 24 hours. The patient is back on prednisone 5 mg by mouth daily in addition to her outpatient medications. She is also on examination performance and Pulmicort overestimates twice a day and both medications will be discontinued and the patient was switched to albuterol nebulized treatments 4 times a day and when necessary. She remains on long-term and coagulation with Eliquis 2.5 mg by mouth twice a day. 01 30 2021, the patient is on the medical floor. Doing well. No specific complaints. He remains on the same treatment. She is on oral Lasix 20 mg by mouth daily. She is also on chronic prednisone treatment at 5 mg a day. She remains on IV cefepime completing a ten-day course. She is also on long-term and coagulation with Eliquis 2.5 mg by mouth twice a day. No respiratory distress. No fever. No chills. No aspiration. Tolerating enteral feeding for nutritional support and effective dysfunctional. She is communicating. She is active. She remains on oxygen at 3 L with a pulse of 79%. She is afebrile. 01/31/2021, no new issues on this patient. She is resting comfortably in bed. She is receiving enteral feeding for nutritional support. She is completing a course of IV cefepime. She is on oral Lasix. Hemodynamically stable. No seizure activity has been noted. No other significant events overnight. She remains on long-term and to coagulation with Eliquis. Objective - Vital Signs Vital signs: Vital Signs Temp 97.8 F 01/31/21 07:58 Pulse 84 01/31/21 07:58 Resp 26 H 01/31/21 07:58 BP 133/79 01/31/21 07:58 Pulse Ox 100 01/31/21 07:58 Intake & Output 01/30/21 01/31/21 01/31/21 18:59 06:59 18:59 Intake Total 135 Output Total 550 500 Balance -415 -500 Intake: Tube Feeding 135 Output: Urine 550 500 Other: Voiding Method Indwelling Catheter Indwelling Catheter Indwelling Catheter # Bowel Movements 0 ABP, PAP, CO, CI - Last Documented Arterial Blood Pressure 122/41 - Exam Calm and comfortable, the patient is resting comfortably on 6 liters NC, she is arousable. Head exam was generally normal. There was no scleral icterus or corneal arcus. Mucous membranes were moist. Neck was supple and without jugular venous distension, thyromegaly, or carotid bruits. Carotids were easily palpable bilaterally. There was no adenopathy. Orogastric and aortic tube are both in place. Lungs are diminished and the patient is on obvious thoracic and thoracolumbar kyphoscoliosis with cervical kyphosis. Rest of the equal and symmetrical. No wheezes or rhonchi. Cardiac exam revealed the PMI to be normally situated and sized. The rhythm was regular and no extrasystoles were noted during several minutes of auscultation. The first and second heart sounds were normal and physiologic splitting of the second heart sound was noted. There were systolic ejection murmur consistent with aortic stenosis , rubs, clicks, or gallops. Abdominal exam revealed normal bowel sounds. The abdomen was soft, non-tender, and without masses, organomegaly, or appreciable enlargement of the abdominal aorta. The patient is a PEG tube in place and the PEG tube site is dry clean and intact and there is no direct tenderness or rebound tensile guarding. Bowel sounds are hypoactive at the present Examination of the extremities revealed easily palpable radial, femoral and pedal pulses. There was no cyanosis, clubbing or edema. Examination of the skin revealed no evidence of significant rashes, suspicious appearing nevi or other concerning lesions. 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 Neurologically the patient is following some simple commands. No focal neurological deficit. - Labs CBC & Chem 7: 01/28/21 04:41 01/28/21 04:41 Labs: Abnormal Lab Results - Last 24 Hours (Table) 01/30/21 01/30/21 01/30/21 Range/Units 11:17 16:29 23:33 POC Glucose (mg/dL) 112 H 121 H 125 H (75-99) mg/dL 01/31/21 Range/Units 05:30 POC Glucose (mg/dL) 107 H (75-99) mg/dL Assessment and Plan Plan: 1 altered mentation secondary to breakthrough seizure and the patient with known history of epilepsy was maintained on Depakote on outpatient basis. The patient is currently free of any seizures maintained on a combination of Keppra and valproic acid. She remains lethargic yet arousable. No seizure activity has been noted and the patient remains on Keppra and valproic acid. Patient remains seizure-free. She is or not and there has been no issues with her mentation. She is communicating. 2 acute bilateral pneumonia, consider hospital-acquired pneumonia with pseudomonas aeruginosa, , currently on IV cefepime. the bronchoscopy was done with therapeutic it was suctioning and the culture was positive for corynebacterium. This is likely a colonizer. We'll complete a course of cefepime to complete a total of 10 day course. 3 acute hypoxic respiratory failure, due to a combination of a pneumonia and some fluid overload. Currently she is off the BiPAP and the patient is currently on 3 L of oxygen by nasal cannula. Nevertheless, overnight, I would like her to go back on a BiPAP knowing that she has a severe obstructive sleep apnea. She is improving. She is on IV Lasix. She is also on IV cefepime. She is receiving bronchodilators. 4 dementia 5 Parkinson's disease, mild developmental delay 6 schizoaffective disorder 7 history of epilepsy 8 history of moderate degree of aortic stenosis and the patient has an obvious cardiac murmur on examination. Based on previous echocardiogram, ejection fraction was around 50-55% and the patient has moderate degree of pulmonary hypertension 9 stage IV left buttocks ulcers post-debridement without evidence of any acute infection. Reevaluation of the wound shows extensive that tissue that needs to be debrided again and will ask the surgeon to reevaluate the wound. 10 esophageal stricture and the patient has a PEG tube in place for enteral feeding and nutritional support 11 abnormal gait due to our concern is and then dementia and the patient is wheelchair-bound and the patient has a caregiver at all 12 history approximately atrial fibrillation current rhythm is sinus 13 hypertension 14 hyperlipidemia 15 previous history of pneumonia and respiratory failure requiring prolonged hospitalization mechanical ventilation 16 history of recurrent UTIs, urine cultures is indicating Pseudomonas , currently on IV cefepime 17 hypothyroidism 18 obstructive sleep apnea with an AHI of 78 maintained on a Pap on outpatient basis Plan: On today's evaluation to the patient remains stable. I do not see any major change in her condition. No aspiration. Overall respiratory status remains stable. Continue Lasix 20 mg by mouth daily Continue cefepime, , total of 10 day course , I think she will complete antibiotic course with the next 24 hours. Check With pharmacy. Continue Depakote and Keppra for seizure control Continue bronchodilators, discontinue the Perforomist and Pulmicort and put the patient on of breath and is currently [id number] Continue PEG tube feedings Colace Supp Wound care to her stage IV decubitus ulcers Follow-up chest x-ray tomorrow Follow-up labs electrolytes and renal profile Maintain aspiration precautions Overall prognosis guarded discharge planning is in progress physical continue to follow. Patient was transferred out of the intensive care unit the condition is stable for now. She has been weaned off oxygen 3 L per minute nasal cannula.
[2021-01-31 11:31] LABS: Glucose,Whole Blood 125 mg/dL (75-99)
[2021-01-31 16:29] LABS: Glucose,Whole Blood 134 mg/dL (75-99)
[2021-01-31] MEDS: MONTELUKAST 5 MG CHEWABLE PEG/G-TUBE SCH (22:01)
[2021-01-31] MEDS: LATANOPROST 0.005% OPHTH DROPS 2.5 ML BTL BOTH EYES SCH (22:02)
[2021-02-01 00:03] LABS: Glucose,Whole Blood 110 mg/dL (75-99)
[2021-02-01] MEDS: INSULIN ASPART (NovoLOG) 100 UNIT/ML VIAL SQ SCH ×5 (01:10→23:24)
[2021-02-01] MEDS ORDERED: SODIUM CHLORIDE 0.9% 500 ML 250 ML IV ONE ×2 (03:34→05:16)
[2021-02-01 05:59] LABS: Glucose,Whole Blood 104 mg/dL (75-99)
[2021-02-01] MEDS: PANTOPRAZOLE 40 MG/10 ML VIAL IV SCH (07:43)
[2021-02-01] MEDS: APIXABAN 2.5 MG TABLET PEG/G-TUBE SCH ×2 (07:44→21:13)
[2021-02-01] MEDS: ATORVASTATIN 10 MG TAB PEG/G-TUBE SCH (07:44)
[2021-02-01] MEDS: FUROSEMIDE 20 MG TAB PO SCH (07:44)
[2021-02-01] MEDS: risperiDONE 1 MG TAB PEG/G-TUBE SCH ×2 (07:44→21:13)
[2021-02-01] MEDS: LEVOTHYROXINE IVP 100 MCG/5 ML VIAL IV SCH (07:44)
[2021-02-01] MEDS: VALPROIC ACID ORAL SOLN 250 MG/5 ML CUP PEG/G-TUBE SCH ×2 (07:45→21:13)
[2021-02-01] MEDS: levETIRAcetam 500 MG TAB PEG/G-TUBE SCH ×2 (07:45→21:13)
[2021-02-01] MEDS: predniSONE 5 MG TAB PEG/G-TUBE SCH (07:46)
[2021-02-01] MEDS: ALBUTEROL NEBULIZED 2.5 MG/3 ML INHALATION SCH ×4 (08:43→19:29)
--- NOTE | 2021-02-01 10:51 | P.PN ---
Subjective Progress Note Date: 01/28/21 Principal diagnosis: Altered mental status possibly secondary to breakthrough seizures Acute bilateral pneumonia/ HCAP Acute hypoxic respiratory failure 80 years old female with past medical history of dementia, atrial fibrillation, asthma, heart failure, GERD, hypertension, hyperlipidemia, mitral valve prolapse, seizure disorder, hypothyroidism, Parkinson disease, developmental delay which is mild, she is a affective disorder, chronic anemia, moderate aortic stenosis with preserved LV function at ejection fraction of 50-55%, moderate pulmonary hypertension, left buttock wound, Patient was sent for possible seizure at home, patient was nonverbal upon arrival, she was hypothermic at 95.7, and 19.8, she was bradycardic at 43 to 50s, and hypotensive with blood pressure 83/68. Also patient was saturating 90% on room air however her oxygen saturation deteriorated and she needed to 15 L nonrebreather and eventually she got intubated in the emergency room On admission her CBC is unremarkable. Sodium is 131 on the low side, potassium normal, creatinine normal at 0.5. Liver enzymes are unremarkable, ProBNP is 351. TSH is elevated at 25.1 and free T4 is also elevated at 2.3. Urine analysis showing large leukocyte esterase and WBC elevated at 22. Valproic acid is 92 which is therapeutic. Coronavirus not detected. Chest x-ray: Left lower lobe infiltrate and atelectasis EKG showing sinus bradycardia at 47 with first-degree AV block, no significant ST-T changes. And QTC is 461. CT of the brain: No acute process. Ventricular enlargement with normal pressure hydrocephalus is considered less likely. Patient in the emergency room received ceftriaxone, several boluses of normal saline. Started on a propofol after intubation. Also with seizure control 01/23/2021 the patient remains in intensive care unit, on BiPAP throughout the day The patient's had diffuse breath and pulmonary infiltrates patient was found to have Pseudomonas in her sputum. Interstitial edema and fluid overload was suspected and the patient was given a total of 80 mg IV Lasix yesterday and the patient is a negative fluid balance of 80 mL over the past 24 hours. A follow- up chest x-ray was done today shows some improvement in the volume status and infiltration with discussed earlier. There is however still some patchy by the pulmonary infiltrates throughout the lung huynh bilaterally. She is tolerating her BiPAP without any major difficulties. She is using a fullface mask. Note that she has also history of obstructive sleep apnea and she is using using bypass. The white cell count is at 7 with a hemoglobin of 9 .4 and a platelet of 119. Normal renal function. TSH is at 4.5. She remains on IV cefepime regarding the Pseudomonas in her lungs. The cardiac rhythm is sinus and the patient is on long-term anticoagulation with Eliquis for now. She is on no pressors. IV fluids are currently at KVO. She is receiving enteral feeding for nutritional support. The patient is receiving vital AF at the rate of 45 mL an hour. She is also receiving some standard water flushes through her PEG tube. Plan is to continue with BiPAP support on and off during the day; patient will receive Lasix 40 mg IV twice a day for next 24 hours; remains on IV cefepime; continue with Depakote and Keppra for seizure control 01/24/2021, patient is seen and evaluated in follow-up in the intensive care unit. The patient is currently off the BiPAP; on oxygen at 6 L per minute nasal cannula; overnight she was placed back on the BiPAP and she is back on 6 L of oxygen by nasal cannula. chest x-rays revealed consolidation left upper lobe. The patient has been a negative fluid balance; receiving IV Lasix and she has been at least 3-4 L negative over the past 2 days. She is making excellent urin e output. Remains on enteral feeding for nutritional support via PEG tube. She is receiving vital AF at the rate of 45 mL an hour. She has not had a bowel movement yet. She remains on IV cefepime regarding the pseudomonal growth in her urine and in her lungs. There may be a superimposed pneumonia with Pseudomonas on top of her excessive fluid overload and possibly component of CHF. 01/25/2021 Patient is currently in the MICU. Lethargic and confused. Able to speak 1 word with verbal commands. Patient is off BiPAP and is currently on 4 L oxygen via nasal cannula. Patient is being continued on antibiotics in the form of cefepime with evidence of Pseudomonas in her sputum and urine cultures. Patient has been afebrile. Tolerating PEG tube feeding. Laboratory data showed WBC 9.8 hemoglobin 9.9 sodium 137 potassium 4.0 chloride 95 bicarb is a 86 BUN 30 and creatinine 2.45 Patient is being continued on levothyroxine IV. Patient was seen by neurology and pulmonary is following. 01/26/2021 Patient remains in the intensive care unit. Able to open her eyes with verbal commands. Still lethargic and weak. Currently on oxygen via nasal cannula. Chest x-ray showed bilateral infiltrate and pleural effusion correlate for diffuse pneumonia versus CHF. Findings slightly progress on the right. Patient is being continued on antibiotics in the form of cefepime. Remains on bronchodilators. Tolerating tube feeding. Patient is being continued on Lasix and not accomplished with Eliquis. Also on IV levothyroxine and antiarrhythmic medications. 01/27/2021 Patient is in the medical intensive care unit. Using BiPAP on and off. Patient is on high flow oxygen 6 L by another cannula currently. Chest x-ray showed bilateral infiltrates and pleural effusion. Continue on Lasix 20 mg daily. Patient is being continued on cefepime due to Pseudomonas UTI and sputum cultures positive for Pseudomonas. Patient is tolerating PEG tube feeding. Patient is status post bronchoscopy. Showed tracheal bronchomalacia and mucous plugging. Fluid cultures were sent. Critical care team is following. 01/28/2021 Patient is currently in the intensive care unit. According 6 later oxygen with another cannula. Did use BiPAP last night. Hemodynamically stable. Nonlabored breathing. Patient is awake and alert. Bronchial cultures showed gram-positive bacilli. Otherwise patient is tolerating the tube feeding. Laboratory data showed WBC trending down to 11.2 and hemoglobin 9.9 sodium 144 potassium 4.0 BUN 37 and creatinine 0.67 Patient is being carried on Lasix and also on prednisone 5 mg daily. Patient did have a bowel movement. Patient has been afebrile. Current medications reviewed. Objective - Vital Signs Vital signs: Vital Signs Temp 98.5 F 01/28/21 14:00 Pulse 80 01/28/21 21:20 Resp 15 01/28/21 14:00 BP 108/66 01/28/21 14:00 Pulse Ox 95 01/28/21 14:00 Intake & Output 01/28/21 01/28/21 01/29/21 06:59 18:59 06:59 Intake Total 810 820 Output Total 450 600 Balance 360 220 Weight 64.6 kg Intake: IV 260 160 0.9 NS 60 60 Cefepime 200 100 Tube Feeding 450 540 Other 100 120 Output: Urine 450 600 Other: Voiding Method Indwelling Catheter Indwelling Catheter # Bowel Movements 1 ABP, PAP, CO, CI - Last Documented Arterial Blood Pressure 122/41 - Exam - Exam -GENERAL: The patient is on oxygen via nasal cannula. Awake but lethargic and drowsy. HEENT: Pupils are round and equally reacting to light. EOMI. No scleral icterus. No conjunctival pallor. Normocephalic, atraumatic. No pharyngeal erythema. No thyromegaly. CARDIOVASCULAR: S1 and S2 present. No murmurs, rubs, or gallops. PULMONARY: Chest is clear to auscultation, no wheezing or crackles. ABDOMEN: Soft, nontender, nondistended, normoactive bowel sounds. No palpable organomegaly. MUSCULOSKELETAL: No joint swelling or deformity. EXTREMITIES: No cyanosis, clubbing, or pedal edema. NEUROLOGICAL: Gross neurological examination did not reveal any focal deficits. SKIN: No rashes. No petechiae, exam is limited because patient clinical status for example intubation - Labs CBC & Chem 7: 01/28/21 04:41 01/28/21 04:41 Labs: Abnormal Lab Results - Last 24 Hours (Table) 01/27/21 01/28/21 01/28/21 Range/Units 09:50 04:41 04:41 WBC 11.2 H (3.8-10.6) k/uL RBC 3.20 L (3.80-5.40) m/uL Hgb 9.9 L (11.4-16.0) gm/dL Hct 30.8 L (34.0-46.0) % RDW 16.4 H (11.5-15.5) % Carbon Dioxide 32 H (22-30) mmol/L BUN 37 H (7-17) mg/dL Creatinine 0.37 L (0.52-1.04) mg/dL POC Glucose (mg/dL) (75-99) mg/dL Viral Test See Below A 01/28/21 01/28/21 Range/Units 11:45 19:08 WBC (3.8-10.6) k/uL RBC (3.80-5.40) m/uL Hgb (11.4-16.0) gm/dL Hct (34.0-46.0) % RDW (11.5-15.5) % Carbon Dioxide (22-30) mmol/L BUN (7-17) mg/dL Creatinine (0.52-1.04) mg/dL POC Glucose (mg/dL) 116 H 109 H (75-99) mg/dL Viral Test Microbiology - Last 24 Hours (Table) 01/27/21 09:50 Gram Stain - Preliminary Bronchial Washings - Random Bronchial Washings Culture - Preliminary 01/27/21 09:50 Acid Fast Bacilli Culture - Preliminary Bronchial Washings - Random Assessment and Plan Assessment: Altered mental status secondary to Suspected breakthrough seizure Acute hypoxic respiratory failure secondary to pneumonia, status post intub ation. Currently on oxygen via nasal cannula. Hypotension, improvement Acute urinary tract infection secondary to gram-negative bacilli Acute bilateral pneumonia. Possible hospital-acquired with Pseudomonas aeruginosa. dementia Parkinson disease and mild mental delay. History of atrial fibrillation History of asthma History of heart failure History of GERD History of hypertension History of hyperlipidemia History of mitral valve prolapse History of seizure disorder History of hypothyroidism History of Parkinson disease History of developmental delay which is mild History of schizoaffective disorder History of chronic anemia History of moderate aortic stenosis with preserved LV function at ejection fraction of 50-55% History of moderate pulmonary hypertension History of left buttock wound Plan: This is a pleasant 80 years old female who presents with seizure and respiratory failure status post intubation/extubation, currently off BiPAP. Saturating well on nasal cannula. Neurology consult recommended Keppra continue with Depakote. Continue with iv thyroxine Continue with antibiotics, cefepime. Sputum cultures and urine culture growing Pseudomonas. Blood cultures negative. Wound team consult Labs and medication were reviewed.. Monitor lytes and vitals. DVT and GI prophylaxis. Further recommendations depends on the clinical course of the patient DVT prophylaxis: Subcutaneous heparin GI Prophylaxis: Ppi PT/OT: Pending Prognosis is guarded Time with Patient: Greater than 30
--- NOTE | 2021-02-01 10:55 | P.PN ---
Subjective Progress Note Date: 01/29/21 Principal diagnosis: Altered mental status possibly secondary to breakthrough seizures Acute bilateral pneumonia/ HCAP Acute hypoxic respiratory failure 80 years old female with past medical history of dementia, atrial fibrillation, asthma, heart failure, GERD, hypertension, hyperlipidemia, mitral valve prolapse, seizure disorder, hypothyroidism, Parkinson disease, developmental delay which is mild, she is a affective disorder, chronic anemia, moderate aortic stenosis with preserved LV function at ejection fraction of 50-55%, moderate pulmonary hypertension, left buttock wound, Patient was sent for possible seizure at home, patient was nonverbal upon arrival, she was hypothermic at 95.7, and 19.8, she was bradycardic at 43 to 50s, and hypotensive with blood pressure 83/68. Also patient was saturating 90% on room air however her oxygen saturation deteriorated and she needed to 15 L nonrebreather and eventually she got intubated in the emergency room On admission her CBC is unremarkable. Sodium is 131 on the low side, potassium normal, creatinine normal at 0.5. Liver enzymes are unremarkable, ProBNP is 351. TSH is elevated at 25.1 and free T4 is also elevated at 2.3. Urine analysis showing large leukocyte esterase and WBC elevated at 22. Valproic acid is 92 which is therapeutic. Coronavirus not detected. Chest x-ray: Left lower lobe infiltrate and atelectasis EKG showing sinus bradycardia at 47 with first-degree AV block, no significant ST-T changes. And QTC is 461. CT of the brain: No acute process. Ventricular enlargement with normal pressure hydrocephalus is considered less likely. Patient in the emergency room received ceftriaxone, several boluses of normal saline. Started on a propofol after intubation. Also with seizure control 01/23/2021 the patient remains in intensive care unit, on BiPAP throughout the day The patient's had diffuse breath and pulmonary infiltrates patient was found to have Pseudomonas in her sputum. Interstitial edema and fluid overload was suspected and the patient was given a total of 80 mg IV Lasix yesterday and the patient is a negative fluid balance of 80 mL over the past 24 hours. A follow- up chest x-ray was done today shows some improvement in the volume status and infiltration with discussed earlier. There is however still some patchy by the pulmonary infiltrates throughout the lung huynh bilaterally. She is tolerating her BiPAP without any major difficulties. She is using a fullface mask. Note that she has also history of obstructive sleep apnea and she is using using bypass. The white cell count is at 7 with a hemoglobin of 9 .4 and a platelet of 119. Normal renal function. TSH is at 4.5. She remains on IV cefepime regarding the Pseudomonas in her lungs. The cardiac rhythm is sinus and the patient is on long-term anticoagulation with Eliquis for now. She is on no pressors. IV fluids are currently at KVO. She is receiving enteral feeding for nutritional support. The patient is receiving vital AF at the rate of 45 mL an hour. She is also receiving some standard water flushes through her PEG tube. Plan is to continue with BiPAP support on and off during the day; patient will receive Lasix 40 mg IV twice a day for next 24 hours; remains on IV cefepime; continue with Depakote and Keppra for seizure control 01/24/2021, patient is seen and evaluated in follow-up in the intensive care unit. The patient is currently off the BiPAP; on oxygen at 6 L per minute nasal cannula; overnight she was placed back on the BiPAP and she is back on 6 L of oxygen by nasal cannula. chest x-rays revealed consolidation left upper lobe. The patient has been a negative fluid balance; receiving IV Lasix and she has been at least 3-4 L negative over the past 2 days. She is making excellent urin e output. Remains on enteral feeding for nutritional support via PEG tube. She is receiving vital AF at the rate of 45 mL an hour. She has not had a bowel movement yet. She remains on IV cefepime regarding the pseudomonal growth in her urine and in her lungs. There may be a superimposed pneumonia with Pseudomonas on top of her excessive fluid overload and possibly component of CHF. 01/25/2021 Patient is currently in the MICU. Lethargic and confused. Able to speak 1 word with verbal commands. Patient is off BiPAP and is currently on 4 L oxygen via nasal cannula. Patient is being continued on antibiotics in the form of cefepime with evidence of Pseudomonas in her sputum and urine cultures. Patient has been afebrile. Tolerating PEG tube feeding. Laboratory data showed WBC 9.8 hemoglobin 9.9 sodium 137 potassium 4.0 chloride 95 bicarb is a 86 BUN 30 and creatinine 2.45 Patient is being continued on levothyroxine IV. Patient was seen by neurology and pulmonary is following. 01/26/2021 Patient remains in the intensive care unit. Able to open her eyes with verbal commands. Still lethargic and weak. Currently on oxygen via nasal cannula. Chest x-ray showed bilateral infiltrate and pleural effusion correlate for diffuse pneumonia versus CHF. Findings slightly progress on the right. Patient is being continued on antibiotics in the form of cefepime. Remains on bronchodilators. Tolerating tube feeding. Patient is being continued on Lasix and not accomplished with Eliquis. Also on IV levothyroxine and antiarrhythmic medications. 01/27/2021 Patient is in the medical intensive care unit. Using BiPAP on and off. Patient is on high flow oxygen 6 L by another cannula currently. Chest x-ray showed bilateral infiltrates and pleural effusion. Continue on Lasix 20 mg daily. Patient is being continued on cefepime due to Pseudomonas UTI and sputum cultures positive for Pseudomonas. Patient is tolerating PEG tube feeding. Patient is status post bronchoscopy. Showed tracheal bronchomalacia and mucous plugging. Fluid cultures were sent. Critical care team is following. 01/28/2021 Patient is currently in the intensive care unit. According 6 later oxygen with another cannula. Did use BiPAP last night. Hemodynamically stable. Nonlabored breathing. Patient is awake and alert. Bronchial cultures showed gram-positive bacilli. Otherwise patient is tolerating the tube feeding. Laboratory data showed WBC trending down to 11.2 and hemoglobin 9.9 sodium 144 potassium 4.0 BUN 37 and creatinine 0.67 Patient is being carried on Lasix and also on prednisone 5 mg daily. Patient did have a bowel movement. Patient has been afebrile. 01/29/2021 Patient is a moderately stable. Awake alert and able to communicate better now. I'll send a carbon trending down to 4 L when asked cannula. Patient is tolerating PEG tube feeding. Bronchoscopy cultures showed Corynebacterium species.. Patient is being continued on antibiotics the form of IV cefepime. Patient is being diuresed with Lasix 20 mg daily changed to by mouth. Patient denied any complaints of abdominal pain. No distention or abdominal pain. No nausea vomiting or diarrhea. Patient is being continued on prednisone 5 mg daily by mouth. Continued on breathing treatments. On anticoagulation with Eliquis. Current medications reviewed. Objective - Vital Signs Vital signs: Vital Signs Temp 98.9 F 01/29/21 19:22 Pulse 78 01/29/21 20:41 Resp 18 01/29/21 19:22 BP 107/66 01/29/21 19:22 Pulse Ox 92 L 01/29/21 19:22 Intake & Output 01/29/21 01/29/21 01/30/21 06:59 18:59 06:59 Intake Total 60 645 Output Total 700 580 Balance -640 65 Weight 62.4 kg 62.4 kg Intake: IV 60 55 0.9 NS 60 55 Tube Feeding 500 Other 90 Output: Urine 700 580 Other: Voiding Method Indwelling Catheter Indwelling Catheter ABP, PAP, CO, CI - Last Documented Arterial Blood Pressure 122/41 - Exam - Exam -GENERAL: The patient is on oxygen via nasal cannula. Patient is awake alert and communicating.. HEENT: Pupils are round and equally reacting to light. EOMI. No scleral icterus. No conjunctival pallor. Normocephalic, atraumatic. No pharyngeal erythema. No thyromegaly. CARDIOVASCULAR: S1 and S2 present. No murmurs, rubs, or gallops. PULMONARY: Chest is clear to auscultation, no wheezing or crackles. ABDOMEN: Soft, nontender, nondistended, normoactive bowel sounds. No palpable organomegaly. MUSCULOSKELETAL: No joint swelling or deformity. EXTREMITIES: No cyanosis, clubbing, or pedal edema. NEUROLOGICAL: Gross neurological examination did not reveal any focal deficits. SKIN: No rashes. No petechiae, exam is limited because patient clinical status for example intubation - Labs CBC & Chem 7: 01/28/21 04:41 01/28/21 04:41 Labs: Abnormal Lab Results - Last 24 Hours (Table) 01/29/21 01/29/21 01/29/21 Range/Units 00:20 00:54 07:13 POC Glucose (mg/dL) 118 H 124 H 127 H (75-99) mg/dL 01/29/21 01/29/21 Range/Units 11:28 18:08 POC Glucose (mg/dL) 124 H 111 H (75-99) mg/dL Microbiology - Last 24 Hours (Table) 01/27/21 09:50 Gram Stain - Final Bronchial Washings - Random Bronchial Washings Culture - Final Corynebacterium striatum 01/27/21 09:50 Acid Fast Bacilli Smear - Final Bronchial Washings - Random Acid Fast Bacilli Culture - Preliminary Assessment and Plan Assessment: Altered mental status secondary to Suspected breakthrough seizure. Mentation is improving. Acute hypoxic respiratory failure secondary to pneumonia, status post intubation. Currently on oxygen via nasal cannula. Hypotension, improvement Acute urinary tract infection secondary to gram-negative bacilli Acute bilateral pneumonia. Possible hospital-acquired with Pseudomonas aeruginosa. dementia Parkinson disease and mild mental delay. History of atrial fibrillation on and atrial fibrillation. History of asthma History of heart failure History of GERD History of hypertension History of hyperlipidemia History of mitral valve prolapse History of seizure disorder History of hypothyroidism History of Parkinson disease History of developmental delay which is mild History of schizoaffective disorder History of chronic anemia History of moderate aortic stenosis with preserved LV function at ejection fraction of 50-55% History of moderate pulmonary hypertension History of left buttock wound Plan: This is a pleasant 80 years old female who presents with seizure and respiratory failure status post intubation/extubation, currently off BiPAP. Saturating well on nasal cannula. Neurology consult recommended Keppra continue with Depakote. Continue with iv thyroxine Continue with antibiotics, cefepime. Sputum cultures and urine culture growing Pseudomonas. Blood cultures negative. BAL fluid cultures showed correlate bacteria species likely colonization. Wound team consult Labs and medication were reviewed.. Monitor lytes and vitals. DVT and GI prophylaxis. Further recommendations depends on the clinical course of the patient DVT prophylaxis: On Eliquis GI Prophylaxis: Ppi PT/OT: Pending Prognosis is guarded Time with Patient: Greater than 30
--- NOTE | 2021-02-01 10:56 | P.PN ---
Subjective Progress Note Date: 01/30/21 Principal diagnosis: Altered mental status possibly secondary to breakthrough seizures Acute bilateral pneumonia/ HCAP Acute hypoxic respiratory failure 80 years old female with past medical history of dementia, atrial fibrillation, asthma, heart failure, GERD, hypertension, hyperlipidemia, mitral valve prolapse, seizure disorder, hypothyroidism, Parkinson disease, developmental delay which is mild, she is a affective disorder, chronic anemia, moderate aortic stenosis with preserved LV function at ejection fraction of 50-55%, moderate pulmonary hypertension, left buttock wound, Patient was sent for possible seizure at home, patient was nonverbal upon arrival, she was hypothermic at 95.7, and 19.8, she was bradycardic at 43 to 50s, and hypotensive with blood pressure 83/68. Also patient was saturating 90% on room air however her oxygen saturation deteriorated and she needed to 15 L nonrebreather and eventually she got intubated in the emergency room On admission her CBC is unremarkable. Sodium is 131 on the low side, potassium normal, creatinine normal at 0.5. Liver enzymes are unremarkable, ProBNP is 351. TSH is elevated at 25.1 and free T4 is also elevated at 2.3. Urine analysis showing large leukocyte esterase and WBC elevated at 22. Valproic acid is 92 which is therapeutic. Coronavirus not detected. Chest x-ray: Left lower lobe infiltrate and atelectasis EKG showing sinus bradycardia at 47 with first-degree AV block, no significant ST-T changes. And QTC is 461. CT of the brain: No acute process. Ventricular enlargement with normal pressure hydrocephalus is considered less likely. Patient in the emergency room received ceftriaxone, several boluses of normal saline. Started on a propofol after intubation. Also with seizure control 01/23/2021 the patient remains in intensive care unit, on BiPAP throughout the day The patient's had diffuse breath and pulmonary infiltrates patient was found to have Pseudomonas in her sputum. Interstitial edema and fluid overload was suspected and the patient was given a total of 80 mg IV Lasix yesterday and the patient is a negative fluid balance of 80 mL over the past 24 hours. A follow- up chest x-ray was done today shows some improvement in the volume status and infiltration with discussed earlier. There is however still some patchy by the pulmonary infiltrates throughout the lung huynh bilaterally. She is tolerating her BiPAP without any major difficulties. She is using a fullface mask. Note that she has also history of obstructive sleep apnea and she is using using bypass. The white cell count is at 7 with a hemoglobin of 9 .4 and a platelet of 119. Normal renal function. TSH is at 4.5. She remains on IV cefepime regarding the Pseudomonas in her lungs. The cardiac rhythm is sinus and the patient is on long-term anticoagulation with Eliquis for now. She is on no pressors. IV fluids are currently at KVO. She is receiving enteral feeding for nutritional support. The patient is receiving vital AF at the rate of 45 mL an hour. She is also receiving some standard water flushes through her PEG tube. Plan is to continue with BiPAP support on and off during the day; patient will receive Lasix 40 mg IV twice a day for next 24 hours; remains on IV cefepime; continue with Depakote and Keppra for seizure control 01/24/2021, patient is seen and evaluated in follow-up in the intensive care unit. The patient is currently off the BiPAP; on oxygen at 6 L per minute nasal cannula; overnight she was placed back on the BiPAP and she is back on 6 L of oxygen by nasal cannula. chest x-rays revealed consolidation left upper lobe. The patient has been a negative fluid balance; receiving IV Lasix and she has been at least 3-4 L negative over the past 2 days. She is making excellent urin e output. Remains on enteral feeding for nutritional support via PEG tube. She is receiving vital AF at the rate of 45 mL an hour. She has not had a bowel movement yet. She remains on IV cefepime regarding the pseudomonal growth in her urine and in her lungs. There may be a superimposed pneumonia with Pseudomonas on top of her excessive fluid overload and possibly component of CHF. 01/25/2021 Patient is currently in the MICU. Lethargic and confused. Able to speak 1 word with verbal commands. Patient is off BiPAP and is currently on 4 L oxygen via nasal cannula. Patient is being continued on antibiotics in the form of cefepime with evidence of Pseudomonas in her sputum and urine cultures. Patient has been afebrile. Tolerating PEG tube feeding. Laboratory data showed WBC 9.8 hemoglobin 9.9 sodium 137 potassium 4.0 chloride 95 bicarb is a 86 BUN 30 and creatinine 2.45 Patient is being continued on levothyroxine IV. Patient was seen by neurology and pulmonary is following. 01/26/2021 Patient remains in the intensive care unit. Able to open her eyes with verbal commands. Still lethargic and weak. Currently on oxygen via nasal cannula. Chest x-ray showed bilateral infiltrate and pleural effusion correlate for diffuse pneumonia versus CHF. Findings slightly progress on the right. Patient is being continued on antibiotics in the form of cefepime. Remains on bronchodilators. Tolerating tube feeding. Patient is being continued on Lasix and not accomplished with Eliquis. Also on IV levothyroxine and antiarrhythmic medications. 01/27/2021 Patient is in the medical intensive care unit. Using BiPAP on and off. Patient is on high flow oxygen 6 L by another cannula currently. Chest x-ray showed bilateral infiltrates and pleural effusion. Continue on Lasix 20 mg daily. Patient is being continued on cefepime due to Pseudomonas UTI and sputum cultures positive for Pseudomonas. Patient is tolerating PEG tube feeding. Patient is status post bronchoscopy. Showed tracheal bronchomalacia and mucous plugging. Fluid cultures were sent. Critical care team is following. 01/28/2021 Patient is currently in the intensive care unit. According 6 later oxygen with another cannula. Did use BiPAP last night. Hemodynamically stable. Nonlabored breathing. Patient is awake and alert. Bronchial cultures showed gram-positive bacilli. Otherwise patient is tolerating the tube feeding. Laboratory data showed WBC trending down to 11.2 and hemoglobin 9.9 sodium 144 potassium 4.0 BUN 37 and creatinine 0.67 Patient is being carried on Lasix and also on prednisone 5 mg daily. Patient did have a bowel movement. Patient has been afebrile. 01/29/2021 Patient is a moderately stable. Awake alert and able to communicate better now. I'll send a carbon trending down to 4 L when asked cannula. Patient is tolerating PEG tube feeding. Bronchoscopy cultures showed Corynebacterium species.. Patient is being continued on antibiotics the form of IV cefepime. Patient is being diuresed with Lasix 20 mg daily changed to by mouth. Patient denied any complaints of abdominal pain. No distention or abdominal pain. No nausea vomiting or diarrhea. Patient is being continued on prednisone 5 mg daily by mouth. Continued on breathing treatments. On anticoagulation with Eliquis. 01/30/2021 Patient is on the medical floor. Awake alert and able to communicate.. Patient is being continued on DuoNeb's Current with IV antibiotics in the form of cefepime for total of 10 days for Pseudomonas urinary tract infection. Bronchioloalveolar cultures showed Patient is on anticoagulation with Eliquis 2.5 mg twice daily. Patient has been afebrile. Tolerating tube feeding. Next currently oxygen 2 L when asked cannula. Hemodynamically stable. Current medications reviewed. Objective - Vital Signs Vital signs: Vital Signs Temp 97.6 F 01/30/21 14:00 Pulse 79 01/30/21 19:30 Resp 19 01/30/21 14:00 BP 107/75 01/30/21 14:00 Pulse Ox 100 01/30/21 14:00 Intake & Output 01/30/21 01/30/21 01/31/21 06:59 18:59 06:59 Intake Total 540 135 Output Total 300 550 Balance 240 -415 Weight 64.5 kg Intake: Tube Feeding 540 135 Output: Urine 300 550 Other: Voiding Method Indwelling Catheter Indwelling Catheter ABP, PAP, CO, CI - Last Documented Arterial Blood Pressure 122/41 - Exam - Exam -GENERAL: The patient is on oxygen via nasal cannula. Patient is awake alert and communicating.. HEENT: Pupils are round and equally reacting to light. EOMI. No scleral icterus. No conjunctival pallor. Normocephalic, atraumatic. No pharyngeal erythema. No thyromegaly. CARDIOVASCULAR: S1 and S2 present. No murmurs, rubs, or gallops. PULMONARY: Chest is clear to auscultation, no wheezing or crackles. ABDOMEN: Soft, nontender, nondistended, normoactive bowel sounds. No palpable organomegaly. MUSCULOSKELETAL: No joint swelling or deformity. EXTREMITIES: No cyanosis, clubbing, or pedal edema. NEUROLOGICAL: Gross neurological examination did not reveal any focal deficits. SKIN: No rashes. No petechiae, exam is limited because patient clinical status for example intubation - Labs CBC & Chem 7: 01/28/21 04:41 01/28/21 04:41 Labs: Abnormal Lab Results - Last 24 Hours (Table) 01/30/21 01/30/21 01/30/21 Range/Units 00:11 06:07 11:17 POC Glucose (mg/dL) 113 H 114 H 112 H (75-99) mg/dL 01/30/21 Range/Units 16:29 POC Glucose (mg/dL) 121 H (75-99) mg/dL Assessment and Plan Assessment: Altered mental status secondary to Suspected breakthrough seizure. Mentation is improving. Acute hypoxic respiratory failure secondary to pneumonia, status post intubation. Currently on oxygen via nasal cannula. Hypotension, improvement Acute urinary tract infection secondary to gram-negative bacilli Acute bilateral pneumonia. Possible hospital-acquired with Pseudomonas aeruginosa. dementia Parkinson disease and mild mental delay. History of atrial fibrillation on and atrial fibrillation. History of asthma History of heart failure History of GERD History of hypertension History of hyperlipidemia History of mitral valve prolapse History of seizure disorder History of hypothyroidism History of Parkinson disease History of developmental delay which is mild History of schizoaffective disorder History of chronic anemia History of moderate aortic stenosis with preserved LV function at ejection fraction of 50-55% History of moderate pulmonary hypertension History of left buttock wound Plan: This is a pleasant 80 years old female who presents with seizure and respiratory failure status post intubation/extubation, currently off BiPAP. Saturating well on nasal cannula. Neurology consult recommended Keppra continue with Depakote. Continue with iv thyroxine Continue with antibiotics, cefepime. Sputum cultures and urine culture growing Pseudomonas. Blood cultures negative. BAL fluid cultures showed correlate bacteria species likely colonization. Wound team consult Labs and medication were reviewed.. Monitor lytes and vitals. DVT and GI prophylaxis. Further recommendations depends on the clinical course of the patient DVT prophylaxis: On Eliquis GI Prophylaxis: Ppi PT/OT: Pending Prognosis is guarded Time with Patient: Greater than 30
--- NOTE | 2021-02-01 10:58 | P.PN ---
Subjective Progress Note Date: 01/31/21 Principal diagnosis: Altered mental status possibly secondary to breakthrough seizures Acute bilateral pneumonia/ HCAP Acute hypoxic respiratory failure 80 years old female with past medical history of dementia, atrial fibrillation, asthma, heart failure, GERD, hypertension, hyperlipidemia, mitral valve prolapse, seizure disorder, hypothyroidism, Parkinson disease, developmental delay which is mild, she is a affective disorder, chronic anemia, moderate aortic stenosis with preserved LV function at ejection fraction of 50-55%, moderate pulmonary hypertension, left buttock wound, Patient was sent for possible seizure at home, patient was nonverbal upon arrival, she was hypothermic at 95.7, and 19.8, she was bradycardic at 43 to 50s, and hypotensive with blood pressure 83/68. Also patient was saturating 90% on room air however her oxygen saturation deteriorated and she needed to 15 L nonrebreather and eventually she got intubated in the emergency room On admission her CBC is unremarkable. Sodium is 131 on the low side, potassium normal, creatinine normal at 0.5. Liver enzymes are unremarkable, ProBNP is 351. TSH is elevated at 25.1 and free T4 is also elevated at 2.3. Urine analysis showing large leukocyte esterase and WBC elevated at 22. Valproic acid is 92 which is therapeutic. Coronavirus not detected. Chest x-ray: Left lower lobe infiltrate and atelectasis EKG showing sinus bradycardia at 47 with first-degree AV block, no significant ST-T changes. And QTC is 461. CT of the brain: No acute process. Ventricular enlargement with normal pressure hydrocephalus is considered less likely. Patient in the emergency room received ceftriaxone, several boluses of normal saline. Started on a propofol after intubation. Also with seizure control 01/23/2021 the patient remains in intensive care unit, on BiPAP throughout the day The patient's had diffuse breath and pulmonary infiltrates patient was found to have Pseudomonas in her sputum. Interstitial edema and fluid overload was suspected and the patient was given a total of 80 mg IV Lasix yesterday and the patient is a negative fluid balance of 80 mL over the past 24 hours. A follow- up chest x-ray was done today shows some improvement in the volume status and infiltration with discussed earlier. There is however still some patchy by the pulmonary infiltrates throughout the lung huynh bilaterally. She is tolerating her BiPAP without any major difficulties. She is using a fullface mask. Note that she has also history of obstructive sleep apnea and she is using using bypass. The white cell count is at 7 with a hemoglobin of 9 .4 and a platelet of 119. Normal renal function. TSH is at 4.5. She remains on IV cefepime regarding the Pseudomonas in her lungs. The cardiac rhythm is sinus and the patient is on long-term anticoagulation with Eliquis for now. She is on no pressors. IV fluids are currently at KVO. She is receiving enteral feeding for nutritional support. The patient is receiving vital AF at the rate of 45 mL an hour. She is also receiving some standard water flushes through her PEG tube. Plan is to continue with BiPAP support on and off during the day; patient will receive Lasix 40 mg IV twice a day for next 24 hours; remains on IV cefepime; continue with Depakote and Keppra for seizure control 01/24/2021, patient is seen and evaluated in follow-up in the intensive care unit. The patient is currently off the BiPAP; on oxygen at 6 L per minute nasal cannula; overnight she was placed back on the BiPAP and she is back on 6 L of oxygen by nasal cannula. chest x-rays revealed consolidation left upper lobe. The patient has been a negative fluid balance; receiving IV Lasix and she has been at least 3-4 L negative over the past 2 days. She is making excellent urin e output. Remains on enteral feeding for nutritional support via PEG tube. She is receiving vital AF at the rate of 45 mL an hour. She has not had a bowel movement yet. She remains on IV cefepime regarding the pseudomonal growth in her urine and in her lungs. There may be a superimposed pneumonia with Pseudomonas on top of her excessive fluid overload and possibly component of CHF. 01/25/2021 Patient is currently in the MICU. Lethargic and confused. Able to speak 1 word with verbal commands. Patient is off BiPAP and is currently on 4 L oxygen via nasal cannula. Patient is being continued on antibiotics in the form of cefepime with evidence of Pseudomonas in her sputum and urine cultures. Patient has been afebrile. Tolerating PEG tube feeding. Laboratory data showed WBC 9.8 hemoglobin 9.9 sodium 137 potassium 4.0 chloride 95 bicarb is a 86 BUN 30 and creatinine 2.45 Patient is being continued on levothyroxine IV. Patient was seen by neurology and pulmonary is following. 01/26/2021 Patient remains in the intensive care unit. Able to open her eyes with verbal commands. Still lethargic and weak. Currently on oxygen via nasal cannula. Chest x-ray showed bilateral infiltrate and pleural effusion correlate for diffuse pneumonia versus CHF. Findings slightly progress on the right. Patient is being continued on antibiotics in the form of cefepime. Remains on bronchodilators. Tolerating tube feeding. Patient is being continued on Lasix and not accomplished with Eliquis. Also on IV levothyroxine and antiarrhythmic medications. 01/27/2021 Patient is in the medical intensive care unit. Using BiPAP on and off. Patient is on high flow oxygen 6 L by another cannula currently. Chest x-ray showed bilateral infiltrates and pleural effusion. Continue on Lasix 20 mg daily. Patient is being continued on cefepime due to Pseudomonas UTI and sputum cultures positive for Pseudomonas. Patient is tolerating PEG tube feeding. Patient is status post bronchoscopy. Showed tracheal bronchomalacia and mucous plugging. Fluid cultures were sent. Critical care team is following. 01/28/2021 Patient is currently in the intensive care unit. According 6 later oxygen with another cannula. Did use BiPAP last night. Hemodynamically stable. Nonlabored breathing. Patient is awake and alert. Bronchial cultures showed gram-positive bacilli. Otherwise patient is tolerating the tube feeding. Laboratory data showed WBC trending down to 11.2 and hemoglobin 9.9 sodium 144 potassium 4.0 BUN 37 and creatinine 0.67 Patient is being carried on Lasix and also on prednisone 5 mg daily. Patient did have a bowel movement. Patient has been afebrile. 01/29/2021 Patient is a moderately stable. Awake alert and able to communicate better now. I'll send a carbon trending down to 4 L when asked cannula. Patient is tolerating PEG tube feeding. Bronchoscopy cultures showed Corynebacterium species.. Patient is being continued on antibiotics the form of IV cefepime. Patient is being diuresed with Lasix 20 mg daily changed to by mouth. Patient denied any complaints of abdominal pain. No distention or abdominal pain. No nausea vomiting or diarrhea. Patient is being continued on prednisone 5 mg daily by mouth. Continued on breathing treatments. On anticoagulation with Eliquis. 01/30/2021 Patient is on the medical floor. Awake alert and able to communicate.. Patient is being continued on DuoNeb's Current with IV antibiotics in the form of cefepime for total of 10 days for Pseudomonas urinary tract infection. Bronchioloalveolar cultures showed Patient is on anticoagulation with Eliquis 2.5 mg twice daily. Patient has been afebrile. Tolerating tube feeding. Next currently oxygen 2 L when asked cannula. Hemodynamically stable. 01/31/2021 Patient is resting in the bed comfortable. On 38 oxygen or another cannula. Awake alert and started to communicate. Patient has been afebrile. No complains of chest pain or short of breath. Patient is being carried on Lasix 20 mg daily and also on anticoagulants with Eliquis 2.5 mg twice a day Continue with cefepime for 10 day course. Pulmonary is following. Continued on DuoNeb's. No compressive abdominal pain. No diarrhea. Possible discharge to rehab. Current medications reviewed. Objective - Vital Signs Vital signs: Vital Signs Temp 97.8 F 01/31/21 14:00 Pulse 70 01/31/21 15:08 Resp 17 01/31/21 14:00 BP 137/72 01/31/21 14:00 Pulse Ox 90 L 01/31/21 14:00 Intake & Output 01/30/21 01/31/21 01/31/21 18:59 06:59 18:59 Intake Total 135 Output Total 550 500 550 Balance -415 -500 -550 Intake: Tube Feeding 135 Output: Urine 550 500 550 Other: Voiding Method Indwelling Catheter Indwelling Catheter Indwelling Catheter # Bowel Movements 0 ABP, PAP, CO, CI - Last Documented Arterial Blood Pressure 122/41 - Exam - Exam -GENERAL: The patient is on oxygen via nasal cannula. Patient is awake alert and communicating.. HEENT: Pupils are round and equally reacting to light. EOMI. No scleral icterus. No conjunctival pallor. Normocephalic, atraumatic. No pharyngeal erythema. No thyromegaly. CARDIOVASCULAR: S1 and S2 present. No murmurs, rubs, or gallops. PULMONARY: Chest is clear to auscultation, no wheezing or crackles. ABDOMEN: Soft, nontender, nondistended, normoactive bowel sounds. No palpable organomegaly. MUSCULOSKELETAL: No joint swelling or deformity. EXTREMITIES: No cyanosis, clubbing, or pedal edema. NEUROLOGICAL: Gross neurological examination did not reveal any focal deficits. SKIN: No rashes. No petechiae, exam is limited because patient clinical status for example intubation - Labs CBC & Chem 7: 01/28/21 04:41 01/28/21 04:41 Labs: Abnormal Lab Results - Last 24 Hours (Table) 01/30/21 01/30/21 01/31/21 Range/Units 16:29 23:33 05:30 POC Glucose (mg/dL) 121 H 125 H 107 H (75-99) mg/dL 01/31/21 Range/Units 11:29 POC Glucose (mg/dL) 125 H (75-99) mg/dL Assessment and Plan Assessment: Altered mental status secondary to Suspected breakthrough seizure. Mentation is improving. Acute hypoxic respiratory failure secondary to pneumonia, status post intubation. Currently on oxygen via nasal cannula. Hypotension, improvement Acute urinary tract infection secondary to gram-negative bacilli Acute bilateral pneumonia. Possible hospital-acquired with Pseudomonas aeruginosa. dementia Parkinson disease and mild mental delay. History of atrial fibrillation on and atrial fibrillation. History of asthma History of heart failure History of GERD History of hypertension History of hyperlipidemia History of mitral valve prolapse History of seizure disorder History of hypothyroidism History of Parkinson disease History of developmental delay which is mild History of schizoaffective disorder History of chronic anemia History of moderate aortic stenosis with preserved LV function at ejection fraction of 50-55% History of moderate pulmonary hypertension History of left buttock wound Plan: This is a pleasant 80 years old female who presents with seizure and respiratory failure status post intubation/extubation, currently off BiPAP. Saturating well on nasal cannula. Neurology consult recommended Keppra continue with Depakote. Continue with iv thyroxine Continue with antibiotics, cefepime. Sputum cultures and urine culture growing Pseudomonas. Blood cultures negative. BAL fluid cultures showed correlate bacteria species likely colonization. Wound team consult Labs and medication were reviewed.. Monitor lytes and vitals. DVT and GI prophylaxis. Further recommendations depends on the clinical course of the patient DVT prophylaxis: On Eliquis GI Prophylaxis: Ppi PT/OT: Pending Prognosis is guarded Time with Patient: Greater than 30
[2021-02-01 11:42] LABS: African American GFR (CKD) >90 (>60 ml/min/1.73 sqM); Anion Gap 6 mmol/L; Blood Urea Nitrogen 32 mg/dL (7-17); Calcium 8.9 mg/dL (8.4-10.2); Carbon Dioxide 32 mmol/L (22-30); Chloride 105 mmol/L (98-107); Glucose 116 mg/dL (74-99); Non-African American GFR(CKD) >90 (>60 ml/min/1.73 sqM); Sodium 143 mmol/L (137-145)
[2021-02-01 11:50] LABS: Anisocytosis Slight; Basophils # (A) 0.1 k/uL (0-0.2); Basophils % (A) 1 %; Eosinophils # (A) 0.4 k/uL (0-0.7); Eosinophils % (A) 3 %; HCT 30.8 % (34.0-46.0); Hypochromasia Moderate; Lymphocytes # (A) 1.5 k/uL (1.0-4.8); Lymphocytes % (A) 12 %; MCH 30.7 pg (25.0-35.0); MCHC 32.6 g/dL (31.0-37.0); MCV 94.2 fL (80.0-100.0); Monocytes # (A) 0.6 k/uL (0-1.0); Monocytes % (A) 5 %; Neutrophils # (A) 9.8 k/uL (1.3-7.7); Neutrophils % (A) 78 %; Platelet Count 392 k/uL (150-450); Potassium 4.8 mmol/L (3.5-5.1); RBC 3.27 m/uL (3.80-5.40); RDW 17.3 % (11.5-15.5); WBC 12.6 k/uL (3.8-10.6)
[2021-02-01 11:59] LABS: Glucose,Whole Blood 122 mg/dL (75-99)
--- NOTE | 2021-02-01 14:02 | P.PN ---
Subjective Progress Note Date: 02/01/21 Principal diagnosis: Altered mental status, due to breakthrough seizure, acute bilateral pneumonia This is a 80-year-old female patient, known to me from previous admissions, caleb contreras to have multiple medical problems and comorbidities most significant a history of dementia along with schizophrenia with Parkinson's disease was been essentially bedridden and she has a 24-hour caregiver at home. Recently, the patient has developed a stage IV sacral decub ulcer and the patient was in the hospital yesterday for a debridement procedure that was done and the patient was discharged home. Discharge, the patient was noted to have seizure activity at home. Note that she has history of seizures and she has been maintained on Depakote on outpatient basis. She was given all of her medications with a caregiver without any interruption. Her seizure lasted for few minutes and the patient was postictal. Apparently she was having tonic-clonic activity as documented by the emergency department team. The patient in the emergency was evaluated. Mentation was altered. She was having twitching in her tongue and mouth area and it was suspected that she was having ongoing seizure activity. For that reason, the patient was started on propofol and the patient was intubated and p laced on a mechanical ventilator for airway protection. Note that the patient apparently was having seizures in the past. She had to seizure activities back in October 2020. She sees a neurologist out of [facility]. She was seen by her neurologist recently and she has not skipped any of her Depakote doses. The patient was given a total of 1 mg Ativan in the emergency department. Her valproic acid level was at 92. The patient was seen by neurology today and the patient was given 1 g every 12 hours and the neurologist asked to continue the Depakote. CAT scan of the brain was done in the emergency department showed no acute abnormalities. No reported fever. No reported neck stiffness. No reported aspiration. The patient had a white cell count of 8.4 with a hemoglobin of 10.2. This morning, it out with this patient in intensive care unit. She was on a mechanical ventilator. She was an assist-control at the rate of 14 with tidal volume of 375 and FiO2 of 50% with a PEEP of 5. Blood gas showed a pH of 7.54 with a pCO2 of 34 and pO2 166. Chest patient was somewhat limited as the patient has significant Scoliosis of the thoracic spine. Nevertheless, there was no airspace disease or consolidation. ET tube was in a good location. The patient had no significant orotracheal secretions. The patient remains hemodynamically stable. She was given a total of 2 L of IV fluids in the emergency department and she did not require any pressors. Her cardiac rhythm was sinus all of the patient has history of atrial fibrillation and she is maintained on anticoagulation with Eliquis. She also has obstructive sleep apnea and this was severe with an AHI of 76 and she was placed on APAP on outpatient basis. There is a month her various other comorbidities. 01/20/2021 the patient is being seen in follow-up in the intensive care unit. The patient got extubated yesterday and currently she is on a BiPAP at a pressure of 10/5 cm of water with an FiO2 of 60%. She is arousable. She is generating tidal volumes in the 550 range with a respiratory rate of 20. The blood gases from today showed a pH of 7.37 with a pCO2 of 48 empiric of 103. She is calm and comfortable while being on a BiPAP. Note that the patient postextubation she was placed on a BiPAP knowing that she has also severe obstructive sleep apnea. Chest x-ray from today shows some residual atelectatic changes and left lower lobe. Otherwise no acute abnormalities have been noted. Overnight, no seizure activity has been noted. The patient is free of any seizures for now. A EEG was done yesterday that showed abnormal findings with slowing suggestive of some mild encephalopathy. Meanwhile, the patient remains on Keppra 500 mg twice a day through her PEG tube and she is also on valproic ac id syrup. TSH is down to 10.1. Free T4 is at 1.84. Rest of the electrolytes all stable for now. She is arousable. Brunson cath is in place. IV fluids are running at the rate of 75 mL an hour. 01/21/2021, I'm seeing this patient for a follow-up. Postextubation, the patient did well initially and she was doing well on a BiPAP and the patient was also able to transition to oxygen by nasal cannula. Nevertheless, over the past 24 hours and specially over the past 12 hours, the patient's condition has gotten worse. Repeat chest x-ray from this morning is showing bilateral pulmonary infiltrates, patchy, involving the left upper lobe and the right lower lobe. Sputum cultures collected earlier returned goods repairer to be positive for pseudomonas aeruginosa and the patient was started on IV cefepime. Currently she is on BiPAP at a pressure of 10/5 cm of water with an FiO2 of 50%. She is quite suggestive the BiPAP. Nevertheless, she does lethargic and she seems to be more lethargic compared to yesterday. She opens her eyes upon termination she is following only simple commands. Hemodynamically stable on no pressors. No seizure activity has been noted. She is receiving enteral feeding for n utritional support and the PEG tube is functional at this point in time. Her white cell count is at 7.7. Her blood gases was done and FiO2 of 60% while the patient being on a BiPAP at a pressure of 10/5 in the blood case with a pH of 7.41 with a pCO2 of 46 and a pO2 of 144. Her pro-calcitonin level is at 0.07. Note that pseudomonas aeruginosa was also cultured and the patient's urine. On 01/22/2021 patient seen in follow-up in the intensive care unit, she is still lethargic, appears to be no acute distress, she is still on BiPAP support with pressures of 10/5 and FiO2 of 60%. Her pulse ox is around 93-95%, she is afebrile, her breathing is a bit more labored today, she had a chest x-ray completed today which showed worsening bilateral infiltrates with the possibility of a layering pleural effusion. She was given a dose of IV Lasix this morning 40 mg IV push and she is diuresing profusely, her oxygenation had since improved from 88% to 93% on FiO2 of 60%. Patient seems to be responding nicely to IV Lasix and she has been given an additional dose of 40 of Lasix this afternoon. She remains on cefepime for antibiotic coverage, her sputum and urine cultures were both positive for pseudomonas aeruginosa. Afebrile overnight, not requiring any vasopressor support. She is on 0.9 normal saline at a rate of 20 ML per hour. He slept 7 reviewed, her white count is 8.2, hemoglobin is 9.5, electrolytes are within normal limits, BUN is 50 creatinine 0.36. Patient is tolerating tube feedings, she is receiving vital AF at 45 with a goal of 45 and standard water flushes. On 01/25/2021 patient seen in follow-up in intensive care unit, this morning she is a bit more lethargic compared to yesterday's exam, however she is verbally responding, although she is confused. She is following basic commands. Denies any acute distress, she is currently off BiPAP support, currently on 4 L of oxygen her pulse ox is 92%, hemodynamically she is a bit hypotensive on today's vitals, with short in the 70s over 50s. After recycling the blood pressure cuff blood pressure is 85/81. Clinically patient although slightly somnolent, but she is warm and dry, she is on IV diuretics with Lasix 40 mg once daily, 0.4 L in the urine output in last 24 hours. No new chest x-ray today, no worsening dyspnea, diminished lung sounds at the bases, no wheezes or rhonchi. Patient remains on cefepime for evidence of Pseudomonas in her sputum and urine cultures. She's had no fever or chills. Patient is tolerating PEG tube feedings, she is currently receiving vital AF at 45 with a goal of 45 and standard water flushes. Abdomen is soft, however patient has not had a bowel movement in several days. Labs have been reviewed showing white blood cell count of 9.8, hemoglobin is 9.9, sodium is 137, potassium is 4.0, chloride is 95, CO2 36, BUN is 30, creatinine 0.48, LFTs are within normal limits On 01/27/2021 patient seen in follow-up in intensive care unit, this morning she is on BiPAP support with pressures of 10/5 and FiO2 of 60%. Lung sounds are positive for scattered rhonchi, patient has a weak cough, she is unable to expectorate any of the phlegm, BiPAP mask was removed, patient was placed on 6 L high flow nasal cannula, her pulse ox is 94%. In for pseudomonas in the sputum cultures and urine cultures. No fever overnight, this morning blood pressure is 91/68, patient remains on oral Lasix 20 mg daily. Today's chest x-ray has been reviewed showing bilateral infiltrates and pleural effusion. 24 hour fluid balance is +240. No increased swelling in bilateral lower extremities. The labs have been reviewed showing white blood cell count of 12.9, hemoglobin is 10.8. Potassium is 5.7, the rest of electrolytes were within normal limits, BUN is 38, creatinine 0.37. Patient is tolerating tube feedings, she is currently vital a EF at 45 ML per hour. On 01/28/2021 patient seen in follow-up in the intensive care unit, she is breathing comfortably, she is currently on 6 L of oxygen her pulse ox is 97%, FiO2 has been turned down to 4 L. She did wear BiPAP support last night, with pressures 10 and 5, and FiO2 of 40%. She has been afebrile, blood pressure is been stable, is currently 116/89. Breathing is nonlabored, much less congested on today's exam, she status post bronchoscopy with removal of bronchial secretions. She remains on cefepime. Bronchial wash cultures are still pending, Gram stain shows moderate PMNs, few gram-positive bacilli. She is tolerating oral feedings, she is on vital HP at 45 with a goal of 45, she is in sinus mechanism, the rate is controlled. Today's labs reviewed, her white blood cell count slightly improved and is down to 11.2, hemoglobin is 9.9, sodium is 144, potassium 4.0, chloride is 105, CO2 32, BUN is 37, creatinine 0.37. Patient remains on 5 mg of prednisone, and maintenance dose of Lasix 20 mg daily. Patient had a bowel movement, abdomen is soft. Nontender. On 02/01/2021 patient seen in follow-up. She is breathing comfortably, she is lethargic, but easily wakes up, she is answering appropriately, denies any acute distress, denies any difficulty breathing. She is currently on 3 L of oxygen, the pulse ox of 95-96%. No fever or chills. She has completed a course of cefepime. Her vital signs have been stable, she is on maintenance dose of oral Lasix. Is in -1050 ML net fluid balance over the last 24 hours, lung sounds are diminished, with a few scattered rhonchi. No significant chest congestion noted. No chest discomfort. Patient had broncho-with bronchoalveolar lavage, bronchial washings showed yeast species, and Corynebacterium striata. Initial sputum and urine cultures were positive for pseudomonas aeruginosa. Patient is tolerating tube feedings. She is receiving Vital AF. Patient has had no fever or chills, hemodynamically she has been stable. White blood cell count is 12.6, hemoglobin is 10, sodium is 143, potassium is 4.8, chloride is 105, CO2 is 32, BUN is 32, creatinine 0.40. Objective - Vital Signs Vital signs: Vital Signs Temp 98.2 F 02/01/21 13:35 Pulse 59 L 02/01/21 13:35 Resp 19 02/01/21 13:35 BP 112/66 02/01/21 13:35 Pulse Ox 96 02/01/21 13:35 Intake & Output 01/31/21 02/01/21 02/01/21 18:59 06:59 18:59 Output Total 550 500 Balance -550 -500 Output: Urine 550 500 Other: Voiding Method Indwelling Catheter Indwelling Catheter Indwelling Catheter ABP, PAP, CO, CI - Last Documented Arterial Blood Pressure 122/41 - Exam Calm and comfortable, the patient is resting comfortably BiPAP, 10 of 5 and FiO2 of 60% and on 3 L of oxygen with pulse ox of 93%. She is arousable. She is lethargic, but easily arousable to verbal stimulation, she is providing some simple verbal responses, she is confused, she is mostly repeating questions, following basic commands Head exam was generally normal. There was no scleral icterus or corneal arcus. Mucous membranes were moist. Neck was supple and without jugular venous distension, thyromegaly, or carotid bruits. Carotids were easily palpable bilaterally. There was no adenopathy. Orogastric and aortic tube are both in place. Lungs are diminished and the patient is on obvious thoracic and thoracolumbar kyphoscoliosis with cervical kyphosis. Rest of the equal and symmetrical. She has scattered rhonchi, he has a weak nonproductive cough, and she is unable to bring up any phlegm Cardiac exam revealed the PMI to be normally situated and sized. The rhythm was regular and no extrasystoles were noted during several minutes of auscultation. The first and second heart sounds were normal and physiologic splitting of the second heart sound was noted. There were systolic ejection murmur consistent with aortic stenosis , rubs, clicks, or gallops. Abdominal exam revealed normal bowel sounds. The abdomen was soft, non-tender, and without masses, organomegaly, or appreciable enlargement of the abdominal aorta. The patient is a PEG tube in place and the PEG tube site is dry clean and intact and there is no direct tenderness or rebound tensile guarding. Bowel sounds are hypoactive at the present Examination of the extremities revealed easily palpable radial, femoral and pedal pulses. There was no cyanosis, clubbing or edema. Examination of the skin revealed no evidence of significant rashes, suspicious appearing nevi or other concerning lesions. 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 Neurologically the patient is following some simple commands. No focal neurological deficit. She is currently off propofol. - Labs CBC & Chem 7: 02/01/21 11:07 02/01/21 11:07 Labs: Abnormal Lab Results - Last 24 Hours (Table) 01/31/21 02/01/21 02/01/21 Range/Units 16:28 00:02 05:56 WBC (3.8-10.6) k/uL RBC (3.80-5.40) m/uL Hgb (11.4-16.0) gm/dL Hct (34.0-46.0) % RDW (11.5-15.5) % Neutrophils # (1.3-7.7) k/uL Carbon Dioxide (22-30) mmol/L BUN (7-17) mg/dL Creatinine (0.52-1.04) mg/dL Glucose (74-99) mg/dL POC Glucose (mg/dL) 134 H 110 H 104 H (75-99) mg/dL 02/01/21 02/01/21 02/01/21 Range/Units 11:07 11:07 11:58 WBC 12.6 H (3.8-10.6) k/uL RBC 3.27 L (3.80-5.40) m/uL Hgb 10.0 L (11.4-16.0) gm/dL Hct 30.8 L (34.0-46.0) % RDW 17.3 H (11.5-15.5) % Neutrophils # 9.8 H (1.3-7.7) k/uL Carbon Dioxide 32 H (22-30) mmol/L BUN 32 H (7-17) mg/dL Creatinine 0.40 L (0.52-1.04) mg/dL Glucose 116 H (74-99) mg/dL POC Glucose (mg/dL) 122 H (75-99) mg/dL Microbiology - Last 24 Hours (Table) 01/27/21 09:50 Fungal Culture - Preliminary Bronchial Washings - Random Yeast species Assessment and Plan Plan: 1 altered mentation secondary to breakthrough seizure and the patient with known history of epilepsy was maintained on Depakote on outpatient basis. The patient is currently free of any seizures maintained on a combination of Keppra and valproic acid. 2 acute bilateral pneumonia, consider hospital-acquired pneumonia with pseudomonas aeruginosa. Initial chest x-ray was clear during the current hospitalization and post extubation the patient developed bilateral consolidation consistent with pseudomonal pneumonia and the patient has completed a course of cefepime. 3 acute hypoxic respiratory failure. The patient recovered from respiratory failure initially the patient was extubated successfully. Subsequently she developed bilateral pneumonia secondary to pseudomonas aeruginosa and and patient requires BiPAP support at bedtime and as needed. Currently FiO2 is down to 2 L 4 dementia 5 Parkinson's disease, mild developmental delay 6 schizoaffective disorder 7 history of epilepsy 8 history of moderate degree of aortic stenosis and the patient has an obvious cardiac murmur on examination. Based on previous echocardiogram, ejection fraction was around 50-55% and the patient has moderate degree of pulmonary hypertension 9 stage IV left buttocks ulcers post-debridement without evidence of any acute infection. 10 esophageal stricture and the patient has a PEG tube in place for enteral feeding and nutritional support 11 abnormal gait due to our concern is and then dementia and the patient is wheelchair-bound and the patient has a caregiver at all 24 7 12 history approximately atrial fibrillation current rhythm is sinus 13 hypertension 14 hyperlipidemia 15 previous history of pneumonia and respiratory failure requiring prolonged hospitalization mechanical ventilation 16 history of recurrent UTIs, urine cultures is indicating Pseudomonas in her jaws and the patient is currently on IV cefepime.17 hypothyroidism 18 obstructive sleep apnea with an AHI of 78 maintained on a Pap on outpatient basis Plan: Patient has completed her course of cefepime Vital signs are stable, FiO2 is currently down to 2 L, BiPAP support at bedtime and as needed Continue with maintenance dose of Lasix No fever or chills, blood pressure stable Today's labs have been reviewed, No acute events overnight, maintain aspiration precautions, Continue tube feedings Maintain aspiration precautions Stable for transfer to ECF for pulmonary perspective I performed a history & physical examination of the patient and discussed their management with my nurse practitioner, Elsy De Guzman. I reviewed the nurse practitioner's note and agree with the documented findings and plan of care. Lung sounds are positive for diffuse wheezes throughout the lung huynh. The findings and the impression was discussed with the patient. I attest to the documentation by the nurse practitioner. Time with Patient: Less than 30
[2021-02-01 18:09] LABS: Glucose,Whole Blood 113 mg/dL (75-99)
[2021-02-01] MEDS: MONTELUKAST 5 MG CHEWABLE PEG/G-TUBE SCH (21:13)
[2021-02-01] MEDS: LATANOPROST 0.005% OPHTH DROPS 2.5 ML BTL BOTH EYES SCH (21:13)
[2021-02-01 23:25] LABS: Glucose,Whole Blood 91 mg/dL (75-99)
[2021-02-02 05:53] LABS: Glucose,Whole Blood 103 mg/dL (75-99)
[2021-02-02] MEDS: INSULIN ASPART (NovoLOG) 100 UNIT/ML VIAL SQ SCH ×3 (05:54→18:08)
[2021-02-02] MEDS: LEVOTHYROXINE IVP 100 MCG/5 ML VIAL IV SCH (06:05)
[2021-02-02] MEDS: ALBUTEROL NEBULIZED 2.5 MG/3 ML INHALATION SCH ×4 (07:52→20:07)
[2021-02-02] MEDS: FUROSEMIDE 20 MG TAB PO SCH (08:22)
[2021-02-02] MEDS: APIXABAN 2.5 MG TABLET PEG/G-TUBE SCH ×2 (08:22→19:56)
[2021-02-02] MEDS: PANTOPRAZOLE 40 MG/10 ML VIAL IV SCH (08:22)
[2021-02-02] MEDS: ATORVASTATIN 10 MG TAB PEG/G-TUBE SCH (08:22)
[2021-02-02] MEDS: risperiDONE 1 MG TAB PEG/G-TUBE SCH ×2 (08:23→19:55)
[2021-02-02] MEDS: levETIRAcetam 500 MG TAB PEG/G-TUBE SCH ×2 (08:23→20:00)
[2021-02-02] MEDS: VALPROIC ACID ORAL SOLN 250 MG/5 ML CUP PEG/G-TUBE SCH ×2 (08:23→19:56)
[2021-02-02] MEDS: predniSONE 5 MG TAB PEG/G-TUBE SCH (08:23)
[2021-02-02 10:02] LABS: HCT 28.9 % (37.2-46.3); HGB 8.8 g/dL (12.0-15.0); MCH 28.8 pg (27.0-32.0); MCHC 30.4 g/dL (32.0-37.0); MCV 94.4 fL (80.0-97.0); Platelet Count 379 X 10*3/uL (140-440); RBC 3.06 X 10*6/uL (4.10-5.20); RDW 17.2 % (11.5-14.5); WBC 10.33 X 10*3/uL (4.50-10.00)
[2021-02-02 10:50] LABS: Acanthocytes 2+; Eosinophils # (M) 0.21 X 10*3/uL (0.04-0.35); Lymphocytes # (M) 2.48 X 10*3/uL (0.90-5.00); Monocytes # (M) 0.41 X 10*3/uL (0.20-1.00); Myelocytes % 2 % (0-0); Neutrophils # (M) 6.92 X 10*3/uL (2.00-8.90); Neutrophils % (M) 67 %
--- NOTE | 2021-02-02 11:10 | P.PN ---
Subjective Progress Note Date: 02/01/21 Principal diagnosis: Altered mental status possibly secondary to breakthrough seizures Acute bilateral pneumonia/ HCAP Acute hypoxic respiratory failure 80 years old female with past medical history of dementia, atrial fibrillation, asthma, heart failure, GERD, hypertension, hyperlipidemia, mitral valve prolapse, seizure disorder, hypothyroidism, Parkinson disease, developmental delay which is mild, she is a affective disorder, chronic anemia, moderate aortic stenosis with preserved LV function at ejection fraction of 50-55%, moderate pulmonary hypertension, left buttock wound, Patient was sent for possible seizure at home, patient was nonverbal upon arrival, she was hypothermic at 95.7, and 19.8, she was bradycardic at 43 to 50s, and hypotensive with blood pressure 83/68. Also patient was saturating 90% on room air however her oxygen saturation deteriorated and she needed to 15 L nonrebreather and eventually she got intubated in the emergency room On admission her CBC is unremarkable. Sodium is 131 on the low side, potassium normal, creatinine normal at 0.5. Liver enzymes are unremarkable, ProBNP is 351. TSH is elevated at 25.1 and free T4 is also elevated at 2.3. Urine analysis showing large leukocyte esterase and WBC elevated at 22. Valproic acid is 92 which is therapeutic. Coronavirus not detected. Chest x-ray: Left lower lobe infiltrate and atelectasis EKG showing sinus bradycardia at 47 with first-degree AV block, no significant ST-T changes. And QTC is 461. CT of the brain: No acute process. Ventricular enlargement with normal pressure hydrocephalus is considered less likely. Patient in the emergency room received ceftriaxone, several boluses of normal saline. Started on a propofol after intubation. Also with seizure control 01/23/2021 the patient remains in intensive care unit, on BiPAP throughout the day The patient's had diffuse breath and pulmonary infiltrates patient was found to have Pseudomonas in her sputum. Interstitial edema and fluid overload was suspected and the patient was given a total of 80 mg IV Lasix yesterday and the patient is a negative fluid balance of 80 mL over the past 24 hours. A follow- up chest x-ray was done today shows some improvement in the volume status and infiltration with discussed earlier. There is however still some patchy by the pulmonary infiltrates throughout the lung huynh bilaterally. She is tolerating her BiPAP without any major difficulties. She is using a fullface mask. Note that she has also history of obstructive sleep apnea and she is using using bypass. The white cell count is at 7 with a hemoglobin of 9 .4 and a platelet of 119. Normal renal function. TSH is at 4.5. She remains on IV cefepime regarding the Pseudomonas in her lungs. The cardiac rhythm is sinus and the patient is on long-term anticoagulation with Eliquis for now. She is on no pressors. IV fluids are currently at KVO. She is receiving enteral feeding for nutritional support. The patient is receiving vital AF at the rate of 45 mL an hour. She is also receiving some standard water flushes through her PEG tube. Plan is to continue with BiPAP support on and off during the day; patient will receive Lasix 40 mg IV twice a day for next 24 hours; remains on IV cefepime; continue with Depakote and Keppra for seizure control 01/24/2021, patient is seen and evaluated in follow-up in the intensive care unit. The patient is currently off the BiPAP; on oxygen at 6 L per minute nasal cannula; overnight she was placed back on the BiPAP and she is back on 6 L of oxygen by nasal cannula. chest x-rays revealed consolidation left upper lobe. The patient has been a negative fluid balance; receiving IV Lasix and she has been at least 3-4 L negative over the past 2 days. She is making excellent urin e output. Remains on enteral feeding for nutritional support via PEG tube. She is receiving vital AF at the rate of 45 mL an hour. She has not had a bowel movement yet. She remains on IV cefepime regarding the pseudomonal growth in her urine and in her lungs. There may be a superimposed pneumonia with Pseudomonas on top of her excessive fluid overload and possibly component of CHF. 01/25/2021 Patient is currently in the MICU. Lethargic and confused. Able to speak 1 word with verbal commands. Patient is off BiPAP and is currently on 4 L oxygen via nasal cannula. Patient is being continued on antibiotics in the form of cefepime with evidence of Pseudomonas in her sputum and urine cultures. Patient has been afebrile. Tolerating PEG tube feeding. Laboratory data showed WBC 9.8 hemoglobin 9.9 sodium 137 potassium 4.0 chloride 95 bicarb is a 86 BUN 30 and creatinine 2.45 Patient is being continued on levothyroxine IV. Patient was seen by neurology and pulmonary is following. 01/26/2021 Patient remains in the intensive care unit. Able to open her eyes with verbal commands. Still lethargic and weak. Currently on oxygen via nasal cannula. Chest x-ray showed bilateral infiltrate and pleural effusion correlate for diffuse pneumonia versus CHF. Findings slightly progress on the right. Patient is being continued on antibiotics in the form of cefepime. Remains on bronchodilators. Tolerating tube feeding. Patient is being continued on Lasix and not accomplished with Eliquis. Also on IV levothyroxine and antiarrhythmic medications. 01/27/2021 Patient is in the medical intensive care unit. Using BiPAP on and off. Patient is on high flow oxygen 6 L by another cannula currently. Chest x-ray showed bilateral infiltrates and pleural effusion. Continue on Lasix 20 mg daily. Patient is being continued on cefepime due to Pseudomonas UTI and sputum cultures positive for Pseudomonas. Patient is tolerating PEG tube feeding. Patient is status post bronchoscopy. Showed tracheal bronchomalacia and mucous plugging. Fluid cultures were sent. Critical care team is following. 01/28/2021 Patient is currently in the intensive care unit. According 6 later oxygen with another cannula. Did use BiPAP last night. Hemodynamically stable. Nonlabored breathing. Patient is awake and alert. Bronchial cultures showed gram-positive bacilli. Otherwise patient is tolerating the tube feeding. Laboratory data showed WBC trending down to 11.2 and hemoglobin 9.9 sodium 144 potassium 4.0 BUN 37 and creatinine 0.67 Patient is being carried on Lasix and also on prednisone 5 mg daily. Patient did have a bowel movement. Patient has been afebrile. 01/29/2021 Patient is a moderately stable. Awake alert and able to communicate better now. I'll send a carbon trending down to 4 L when asked cannula. Patient is tolerating PEG tube feeding. Bronchoscopy cultures showed Corynebacterium species.. Patient is being continued on antibiotics the form of IV cefepime. Patient is being diuresed with Lasix 20 mg daily changed to by mouth. Patient denied any complaints of abdominal pain. No distention or abdominal pain. No nausea vomiting or diarrhea. Patient is being continued on prednisone 5 mg daily by mouth. Continued on breathing treatments. On anticoagulation with Eliquis. 01/30/2021 Patient is on the medical floor. Awake alert and able to communicate.. Patient is being continued on DuoNeb's Current with IV antibiotics in the form of cefepime for total of 10 days for Pseudomonas urinary tract infection. Bronchioloalveolar cultures showed Patient is on anticoagulation with Eliquis 2.5 mg twice daily. Patient has been afebrile. Tolerating tube feeding. Next currently oxygen 2 L when asked cannula. Hemodynamically stable. 01/31/2021 Patient is resting in the bed comfortable. On 38 oxygen or another cannula. Awake alert and started to communicate. Patient has been afebrile. No complains of chest pain or short of breath. Patient is being carried on Lasix 20 mg daily and also on anticoagulants with Eliquis 2.5 mg twice a day Continue with cefepime for 10 day course. Pulmonary is following. Continued on DuoNeb's. No compressive abdominal pain. No diarrhea. Possible discharge to rehab. 02/01/2021 Patient is currently resting in the bed. Awake alert and able to communicate with a 1-2 words. Patient has been afebrile Currently on oxygen at 3 L cannula. Patient was also using BiPAP on and off. Continue with Lasix 20 mg daily and also patient completed 10 day course of cefepime for Pseudomonas UTI. Tolerating tube feedings. Hemodynamically stable. Laboratory data showed WBC 12.6 hemoglobin 10.0 and BUN 32 and creatinine 0.4 Pulmonary is on board. Current medications reviewed. Objective - Vital Signs Vital signs: Vital Signs Temp 98.2 F 02/01/21 13:35 Pulse 93 02/01/21 15:58 Resp 19 02/01/21 13:35 BP 112/66 02/01/21 13:35 Pulse Ox 96 02/01/21 13:35 Intake & Output 01/31/21 02/01/21 02/01/21 18:59 06:59 18:59 Output Total 550 500 Balance -550 -500 Output: Urine 550 500 Other: Voiding Method Indwelling Catheter Indwelling Catheter Indwelling Catheter ABP, PAP, CO, CI - Last Documented Arterial Blood Pressure 122/41 - Exam - Exam -GENERAL: The patient is on oxygen via nasal cannula. Patient is awake alert and communicating.. HEENT: Pupils are round and equally reacting to light. EOMI. No scleral icterus. No conjunctival pallor. Normocephalic, atraumatic. No pharyngeal erythema. No thyromegaly. CARDIOVASCULAR: S1 and S2 present. No murmurs, rubs, or gallops. PULMONARY: Bilateral scattered rhonchi and basilar dementia sounds. Nonlabored breathing.. ABDOMEN: Soft, nontender, nondistended, normoactive bowel sounds. No palpable organomegaly. MUSCULOSKELETAL: No joint swelling or deformity. EXTREMITIES: No cyanosis, clubbing, or pedal edema. NEUROLOGICAL: Gross neurological examination did not reveal any focal deficits. SKIN: No rashes. No petechiae, exam is limited because patient clinical status for example intubation - Labs CBC & Chem 7: 02/02/21 06:15 02/01/21 11:07 Labs: Abnormal Lab Results - Last 24 Hours (Table) 02/01/21 02/01/21 02/01/21 Range/Units 00:02 05:56 11:07 WBC 12.6 H (3.8-10.6) k/uL RBC 3.27 L (3.80-5.40) m/uL Hgb 10.0 L (11.4-16.0) gm/dL Hct 30.8 L (34.0-46.0) % RDW 17.3 H (11.5-15.5) % Neutrophils # 9.8 H (1.3-7.7) k/uL Carbon Dioxide (22-30) mmol/L BUN (7-17) mg/dL Creatinine (0.52-1.04) mg/dL Glucose (74-99) mg/dL POC Glucose (mg/dL) 110 H 104 H (75-99) mg/dL 02/01/21 02/01/21 Range/Units 11:07 11:58 WBC (3.8-10.6) k/uL RBC (3.80-5.40) m/uL Hgb (11.4-16.0) gm/dL Hct (34.0-46.0) % RDW (11.5-15.5) % Neutrophils # (1.3-7.7) k/uL Carbon Dioxide 32 H (22-30) mmol/L BUN 32 H (7-17) mg/dL Creatinine 0.40 L (0.52-1.04) mg/dL Glucose 116 H (74-99) mg/dL POC Glucose (mg/dL) 122 H (75-99) mg/dL Microbiology - Last 24 Hours (Table) 01/27/21 09:50 Fungal Culture - Preliminary Bronchial Washings - Random Yeast species Assessment and Plan Assessment: Altered mental status secondary to Suspected breakthrough seizure. Mentation is improving. Acute hypoxic respiratory failure secondary to pneumonia, status post intubation. Currently on oxygen via nasal cannula. Hypotension, improvement Acute urinary tract infection secondary to gram-negative bacilli Acute bilateral pneumonia. Possible hospital-acquired with Pseudomonas aeruginosa. dementia Parkinson disease and mild mental delay. History of atrial fibrillation on and atrial fibrillation. History of asthma History of heart failure History of GERD History of hypertension History of hyperlipidemia History of mitral valve prolapse History of seizure disorder History of hypothyroidism History of Parkinson disease History of developmental delay which is mild History of schizoaffective disorder History of chronic anemia History of moderate aortic stenosis with preserved LV function at ejection fraction of 50-55% History of moderate pulmonary hypertension History of left buttock wound Plan: This is a pleasant 80 years old female who presents with seizure and respiratory failure status post intubation/extubation, currently off BiPAP. Saturating well on nasal cannula. Neurology recommended Keppra continue with Depakote. Continue with iv thyroxine Continue with antibiotics, cefepime. Sputum cultures and urine culture growing Pseudomonas. Blood cultures negative. BAL fluid cultures showed correlate bacteria species likely colonization. Wound team consult Labs and medication were reviewed.. Monitor lytes and vitals. DVT and GI prophylaxis. Further recommendations depends on the clinical course of the patient DVT prophylaxis: On Eliquis GI Prophylaxis: Ppi PT/OT: Pending Prognosis is guarded Time with Patient: Greater than 30
[2021-02-02 11:56] LABS: African American GFR (CKD) 114.8 (60.0-200.0); Anion Gap 10.9 mmol/L (4.00-12.00); Calcium 8.6 mg/dL (8.7-10.3); Carbon Dioxide 28.1 mmol/L (21.6-31.8); Non-African American GFR(CKD) 99.1 (60.0-200.0); Potassium 4.2 mmol/L (3.5-5.5)
[2021-02-02 12:01] LABS: Glucose,Whole Blood 111 mg/dL (75-99)
--- NOTE | 2021-02-02 12:43 | P.PN ---
Subjective Progress Note Date: 02/02/21 Principal diagnosis: Altered mental status, due to breakthrough seizure, acute bilateral pneumonia This is a 80-year-old female patient, known to me from previous admissions, kn own to have multiple medical problems and comorbidities most significant a history of dementia along with schizophrenia with Parkinson's disease was been essentially bedridden and she has a 24-hour caregiver at home. Recently, the patient has developed a stage IV sacral decub ulcer and the patient was in the hospital yesterday for a debridement procedure that was done and the patient was discharged home. Discharge, the patient was noted to have seizure activity at home. Note that she has history of seizures and she has been maintained on Depakote on outpatient basis. She was given all of her medications with a caregiver without any interruption. Her seizure lasted for few minutes and the patient was postictal. Apparently she was having tonic-clonic activity as documented by the emergency department team. The patient in the emergency was evaluated. Mentation was altered. She was having twitching in her tongue and mouth area and it was suspected that she was having ongoing seizure activity. For that reason, the patient was started on propofol and the patient was intubated and placed on a mechanical ventilator for airway protection. Note that the patient apparently was having seizures in the past. She had to seizure activities back in October 2020. She sees a neurologist out of [facility]. She was seen by her neurologist recently and she has not skipped any of her Depakote doses. The patient was given a total of 1 mg Ativan in the emergency department. Her v alproic acid level was at 92. The patient was seen by neurology today and the patient was given 1 g every 12 hours and the neurologist asked to continue the Depakote. CAT scan of the brain was done in the emergency department showed no acute abnormalities. No reported fever. No reported neck stiffness. No reported aspiration. The patient had a white cell count of 8.4 with a hemoglobin of 10.2. This morning, it out with this patient in intensive care unit. She was on a mechanical ventilator. She was an assist-control at the rate of 14 with tidal volume of 375 and FiO2 of 50% with a PEEP of 5. Blood gas showed a pH of 7.54 with a pCO2 of 34 and pO2 166. Chest patient was somewhat limited as the patient has significant Scoliosis of the thoracic spine. Nevertheless, there was no airspace disease or consolidation. ET tube was in a good location. The patient had no significant orotracheal secretions. The patient remains hemodynamically stable. She was given a total of 2 L of IV fluids in the emergency department and she did not require any pressors. Her cardiac rhythm was sinus all of the patient has history of atrial fibrillation and she is maintained on anticoagulation with Eliquis. She also has obstructive sleep apnea and this was severe with an AHI of 76 and she was placed on APAP on outpatient basis. There is a month her various other comorbidities. 01/20/2021 the patient is being seen in follow-up in the intensive care unit. The patient got extubated yesterday and currently she is on a BiPAP at a pressure of 10/5 cm of water with an FiO2 of 60%. She is arousable. She is generating tidal volumes in the 550 range with a respiratory rate of 20. The bl ood gases from today showed a pH of 7.37 with a pCO2 of 48 empiric of 103. She is calm and comfortable while being on a BiPAP. Note that the patient postextubation she was placed on a BiPAP knowing that she has also severe obstructive sleep apnea. Chest x-ray from today shows some residual atelectatic changes and left lower lobe. Otherwise no acute abnormalities have been noted. Overnight, no seizure activity has been noted. The patient is free of any seizures for now. A EEG was done yesterday that showed abnormal findings with slowing suggestive of some mild encephalopathy. Meanwhile, the patient remains on Keppra 500 mg twice a day through her PEG tube and she is also on valproic a allen syrup. TSH is down to 10.1. Free T4 is at 1.84. Rest of the electrolytes all stable for now. She is arousable. Brunson cath is in place. IV fluids are running at the rate of 75 mL an hour. 01/21/2021, I'm seeing this patient for a follow-up. Postextubation, the patient did well initially and she was doing well on a BiPAP and the patient was also able to transition to oxygen by nasal cannula. Nevertheless, over the past 24 hours and specially over the past 12 hours, the patient's condition has gotten worse. Repeat chest x-ray from this morning is showing bilateral pulmonary infiltrates, patchy, involving the left upper lobe and the right lower lobe. Sputum cultures collected earlier turn operator to be positive for pseudomonas aeruginosa and the patient was started on IV cefepime. Currently she is on BiPAP at a pressure of 10/5 cm of water with an FiO2 of 50%. She is quite sugge stive the BiPAP. Nevertheless, she does lethargic and she seems to be more lethargic compared to yesterday. She opens her eyes upon termination she is following only simple commands. Hemodynamically stable on no pressors. No seizure activity has been noted. She is receiving enteral feeding for nutritional support and the PEG tube is functional at this point in time. Her white cell count is at 7.7. Her blood gases was done and FiO2 of 60% while the patient being on a BiPAP at a pressure of 10/5 in the blood case with a pH of 7.41 with a pCO2 of 46 and a pO2 of 144. Her pro-calcitonin level is at 0.07. Note that pseudomonas aeruginosa was also cultured and the patient's urine. On 01/22/2021 patient seen in follow-up in the intensive care unit, she is still lethargic, appears to be no acute distress, she is still on BiPAP support with pressures of 10/5 and FiO2 of 60%. Her pulse ox is around 93-95%, she is afebrile, her breathing is a bit more labored today, she had a chest x-ray completed today which showed worsening bilateral infiltrates with the possibility of a layering pleural effusion. She was given a dose of IV Lasix this morning 40 mg IV push and she is diuresing profusely, her oxygenation had since improved from 88% to 93% on FiO2 of 60%. Patient seems to be responding nicely to IV Lasix and she has been given an additional dose of 40 of Lasix this afternoon. She remains on cefepime for antibiotic coverage, her sputum and urine cultures were both positive for pseudomonas aeruginosa. Afebrile overnight, not requiring any vasopressor support. She is on 0.9 normal saline at a rate of 20 ML per hour. He slept 7 reviewed, her white count is 8.2, hemoglobin is 9.5, electrolytes are within normal limits, BUN is 50 creatinine 0.36. Patient is tolerating tube feedings, she is receiving vital AF at 45 with a goal of 45 and standard water flushes. On 01/25/2021 patient seen in follow-up in intensive care unit, this morning she is a bit more lethargic compared to yesterday's exam, however she is verbally responding, although she is confused. She is following basic commands. Denies any acute distress, she is currently off BiPAP support, currently on 4 L of oxygen her pulse ox is 92%, hemodynamically she is a bit hypotensive on today's vitals, with short in the 70s over 50s. After recycling the blood pressure cuff blood pressure is 85/81. Clinically patient although slightly somnolent, but she is warm and dry, she is on IV diuretics with Lasix 40 mg once daily, 0.4 L in the urine output in last 24 hours. No new chest x-ray today, no worsening dyspnea, diminished lung sounds at the bases, no wheezes or rhonchi. Patient remains on cefepime for evidence of Pseudomonas in her sputum and urine cultures. She's had no fever or chills. Patient is tolerating PEG tube feedings, she is currently receiving vital AF at 45 with a goal of 45 and standard water flushes. Abdomen is soft, however patient has not had a bowel movement in several days. Labs have been reviewed showing white blood cell count of 9.8, hemoglobin is 9.9, sodium is 137, potassium is 4.0, chloride is 95, CO2 36, BUN is 30, creatinine 0.48, LFTs are within normal limits The patient is seen today 01/26/2021 in follow-up in the intensive care unit. She is more awake and alert today. Opening her eyes and around. Answering some simple questions appropriately. She did wear her BiPAP 10/5 and 60% FiO2. Currently on 6 L high flow nasal cannula and maintaining O2 saturations in the 90s. His x-ray continues to show bilateral infiltrate with small pleural effusi ons. Sputum and urine cultures positive for pseudomonas aeruginosa. White count 9.3. Hemoglobin 10.7. Sodium 139. Potassium 4.2. Creatinine 0.49. She remains on cefepime. Continued on bronchodilators. Remains on diuretics. Anticoagulated with Eliquis. Continued on her anticonvulsants. She is being nourished with vital AF at 45 ML's per hour which is goal via PEG tube feedings with free water flushes. Abdomen remains soft. No seizure activity. The patient is seen today 02/02/2021 in follow-up on the regular medical floor. She is currently resting comfortably in bed. Awake and alert. No acute distress. Alternating between BiPAP and 3 L/m per nasal cannula. He'll wash cultures have been positive for corynebacterium stratum, yeast. White count 10.3. Hemoglobin 8.8. Sodium 145. Potassium 4.2. Creatinine 0.4. She is anticoagulated with Eliquis. Remains on bronchodilators. Objective - Vital Signs Vital signs: Vital Signs Temp 96.9 F L 02/02/21 08:00 Pulse 80 02/02/21 11:31 Resp 20 02/02/21 08:00 BP 88/62 02/02/21 08:00 Pulse Ox 92 L 02/02/21 08:00 Intake & Output 02/01/21 02/02/21 02/02/21 18:59 06:59 18:59 Intake Total 240 Output Total 300 Balance -60 Weight 64.5 kg Intake: IV 240 0.9 NS 240 Output: Urine 300 Other: Voiding Method Indwelling Catheter Indwelling Catheter Indwelling Catheter ABP, PAP, CO, CI - Last Documented Arterial Blood Pressure 122/41 - Exam A 80-year-old female patient currently resting comfortably on continue with BiPAP and 3 L nasal cannula. She is arousable. She is lethargic, but easily arousable to verbal stimulation, she is providing some simple verbal responses, she is confused, she is mostly repeating questions, following basic commands Head exam was generally normal. There was no scleral icterus or corneal arcus. Mucous membranes were moist. Neck was supple and without jugular venous distension, thyromegaly, or carotid bruits. Carotids were easily palpable bilaterally. There was no adenopathy. Lungs are diminished and the patient is on obvious thoracic and thoracolumbar kyphoscoliosis with cervical kyphosis. Rest of the equal and symmetrical. No wheezes or rhonchi. Cardiac exam revealed the PMI to be normally situated and sized. The rhythm was regular and no extrasystoles were noted during several minutes of auscultation. The first and second heart sounds were normal and physiologic splitting of the second heart sound was noted. There were systolic ejection murmur consistent with aortic stenosis , rubs, clicks, or gallops. Abdominal exam revealed normal bowel sounds. The abdomen was soft, non-tender, and without masses, organomegaly, or appreciable enlargement of the abdominal aorta. The patient is a PEG tube in place and the PEG tube site is dry clean and intact and there is no direct tenderness or rebound tensile guarding. Bowel sounds are hypoactive at the present Examination of the extremities revealed easily palpable radial, femoral and pedal pulses. There was no cyanosis, clubbing or edema. Examination of the skin revealed no evidence of significant rashes, suspicious appearing nevi or other concerning lesions. 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 Neurologically the patient is following some simple commands. No focal neurological deficit. She is currently off propofol. - Labs CBC & Chem 7: 02/02/21 06:15 02/02/21 06:15 Labs: Abnormal Lab Results - Last 24 Hours (Table) 02/01/21 02/02/21 02/02/21 Range/Units 18:08 05:51 06:15 WBC 10.33 H (4.50-10.00) X 10*3/uL RBC 3.06 L (4.10-5.20) X 10*6/uL Hgb 8.8 L (12.0-15.0) g/dL Hct 28.9 L (37.2-46.3) % MCHC 30.4 L (32.0-37.0) g/dL RDW 17.2 H (11.5-14.5) % Myelocytes % 2 H (0-0) % BUN (9.0-27.0) mg/dL Creatinine (0.6-1.5) mg/dL BUN/Creatinine Ratio (12.00-20.00) Ratio POC Glucose (mg/dL) 113 H 103 H (75-99) mg/dL Calcium (8.7-10.3) mg/dL 02/02/21 02/02/21 Range/Units 06:15 12:00 WBC (4.50-10.00) X 10*3/uL RBC (4.10-5.20) X 10*6/uL Hgb (12.0-15.0) g/dL Hct (37.2-46.3) % MCHC (32.0-37.0) g/dL RDW (11.5-14.5) % Myelocytes % (0-0) % BUN 28.0 H (9.0-27.0) mg/dL Creatinine 0.4 L (0.6-1.5) mg/dL BUN/Creatinine Ratio 70.00 H (12.00-20.00) Ratio POC Glucose (mg/dL) 111 H (75-99) mg/dL Calcium 8.6 L (8.7-10.3) mg/dL Microbiology - Last 24 Hours (Table) 01/27/21 09:50 Fungal Culture - Preliminary Bronchial Washings - Random Yeast species Assessment and Plan Assessment: 1 altered mentation secondary to breakthrough seizure and the patient with known history of epilepsy was maintained on Depakote on outpatient basis. The patient is currently free of any seizures maintained on a combination of Keppra and valproic acid. 2 acute bilateral pneumonia, consider hospital-acquired pneumonia with pseudomonas aeruginosa. Initial chest x-ray was clear during the current ho spitalization and post extubation the patient developed bilateral consolidation consistent with pseudomonal pneumonia and the patient is currently on IV cefepime. 3 acute hypoxic respiratory failure. The patient recovered from respiratory failure initially the patient was extubated successfully. Subsequently she developed bilateral pneumonia secondary to pseudomonas aeruginosa and currently on BiPAP at pressure of 10/5 and FiO2 of 60% alternating with oxygen 6 L high flow nasal cannula. Blood gases was noted and the patient is currently on IV cefepime. 4 dementia 5 Parkinson's disease, mild developmental delay 6 schizoaffective disorder 7 history of epilepsy 8 history of moderate degree of aortic stenosis and the patient has an obvious cardiac murmur on examination. Based on previous echocardiogram, ejection fraction was around 50-55% and the patient has moderate degree of pulmonary hypertension 9 stage IV left buttocks ulcers post-debridement without evidence of any acute i nfection. 10 esophageal stricture and the patient has a PEG tube in place for enteral feeding and nutritional support 11 abnormal gait due to our concern is and then dementia and the patient is whee lchair-bound and the patient has a caregiver at all 24 7 12 history approximately atrial fibrillation current rhythm is sinus 13 hypertension 14 hyperlipidemia 15 previous history of pneumonia and respiratory failure requiring prolonged hospitalization mechanical ventilation 16 history of recurrent UTIs, urine cultures is indicating Pseudomonas in her jaws and the patient is currently on IV cefepime.17 hypothyroidism 18 obstructive sleep apnea with an AHI of 78 maintained on a Pap on outpatient basis Plan: The patient was seen and evaluated by Dr. Childers Labs and medications reviewed Currently stable from the pulmonary standpoint Home once cleared by medicine I, the cosigning physician, performed a history & physical examination of the patient. Lungs sounds are clear, diminished. Maintaining good O2 saturations in the 90s on 3 L nasal cannula, alternating with BiPAP. I discussed the assessment and plan of care with my nurse practitioner, Rica Thomas. I attest to the above note as dictated by her.
[2021-02-02 17:56] LABS: Glucose,Whole Blood 114 mg/dL (75-99)
[2021-02-02] MEDS: MONTELUKAST 5 MG CHEWABLE PEG/G-TUBE SCH (19:55)
[2021-02-02] MEDS: LATANOPROST 0.005% OPHTH DROPS 2.5 ML BTL BOTH EYES SCH (19:55)
[2021-02-02 20:41] LABS: Glucose,Whole Blood 110 mg/dL (75-99)
[2021-02-03 00:48] LABS: Glucose,Whole Blood 118 mg/dL (75-99)
[2021-02-03] MEDS: INSULIN ASPART (NovoLOG) 100 UNIT/ML VIAL SQ SCH ×3 (02:19→12:15)
[2021-02-03 05:19] LABS: Glucose,Whole Blood 117 mg/dL (75-99)
[2021-02-03] MEDS: LEVOTHYROXINE IVP 100 MCG/5 ML VIAL IV SCH (06:20)
[2021-02-03 09:25] VITALS: RESP 33; TEMP 96.5
[2021-02-03] MEDS: ALBUTEROL NEBULIZED 2.5 MG/3 ML INHALATION SCH ×2 (09:29→12:03)
[2021-02-03] MEDS: PANTOPRAZOLE 40 MG/10 ML VIAL IV SCH (09:36)
[2021-02-03] MEDS: risperiDONE 1 MG TAB PEG/G-TUBE SCH (09:39)
[2021-02-03] MEDS: FUROSEMIDE 20 MG TAB PO SCH (09:39)
[2021-02-03] MEDS: APIXABAN 2.5 MG TABLET PEG/G-TUBE SCH (09:39)
[2021-02-03] MEDS: levETIRAcetam 500 MG TAB PEG/G-TUBE SCH (09:40)
[2021-02-03] MEDS: ATORVASTATIN 10 MG TAB PEG/G-TUBE SCH (09:40)
[2021-02-03] MEDS: predniSONE 5 MG TAB PEG/G-TUBE SCH (09:40)
[2021-02-03] MEDS: VALPROIC ACID ORAL SOLN 250 MG/5 ML CUP PEG/G-TUBE SCH (09:40)
[2021-02-03 09:44] VITALS: BP 125/79
--- NOTE | 2021-02-03 10:56 | P.PN ---
Subjective Progress Note Date: 02/02/21 Principal diagnosis: Altered mental status possibly secondary to breakthrough seizures Acute bilateral pneumonia/ HCAP Acute hypoxic respiratory failure 80 years old female with past medical history of dementia, atrial fibrillation, asthma, heart failure, GERD, hypertension, hyperlipidemia, mitral valve prolapse, seizure disorder, hypothyroidism, Parkinson disease, developmental delay which is mild, she is a affective disorder, chronic anemia, moderate aortic stenosis with preserved LV function at ejection fraction of 50-55%, moderate pulmonary hypertension, left buttock wound, Patient was sent for possible seizure at home, patient was nonverbal upon arrival, she was hypothermic at 95.7, and 19.8, she was bradycardic at 43 to 50s, and hypotensive with blood pressure 83/68. Also patient was saturating 90% on room air however her oxygen saturation deteriorated and she needed to 15 L nonrebreather and eventually she got intubated in the emergency room On admission her CBC is unremarkable. Sodium is 131 on the low side, potassium normal, creatinine normal at 0.5. Liver enzymes are unremarkable, ProBNP is 351. TSH is elevated at 25.1 and free T4 is also elevated at 2.3. Urine analysis showing large leukocyte esterase and WBC elevated at 22. Valproic acid is 92 which is therapeutic. Coronavirus not detected. Chest x-ray: Left lower lobe infiltrate and atelectasis EKG showing sinus bradycardia at 47 with first-degree AV block, no significant ST-T changes. And QTC is 461. CT of the brain: No acute process. Ventricular enlargement with normal pressure hydrocephalus is considered less likely. Patient in the emergency room received ceftriaxone, several boluses of normal saline. Started on a propofol after intubation. Also with seizure control 01/23/2021 the patient remains in intensive care unit, on BiPAP throughout the day The patient's had diffuse breath and pulmonary infiltrates patient was found to have Pseudomonas in her sputum. Interstitial edema and fluid overload was suspected and the patient was given a total of 80 mg IV Lasix yesterday and the patient is a negative fluid balance of 80 mL over the past 24 hours. A follow- up chest x-ray was done today shows some improvement in the volume status and infiltration with discussed earlier. There is however still some patchy by the pulmonary infiltrates throughout the lung huynh bilaterally. She is tolerating her BiPAP without any major difficulties. She is using a fullface mask. Note that she has also history of obstructive sleep apnea and she is using using bypass. The white cell count is at 7 with a hemoglobin of 9 .4 and a platelet of 119. Normal renal function. TSH is at 4.5. She remains on IV cefepime regarding the Pseudomonas in her lungs. The cardiac rhythm is sinus and the patient is on long-term anticoagulation with Eliquis for now. She is on no pressors. IV fluids are currently at KVO. She is receiving enteral feeding for nutritional support. The patient is receiving vital AF at the rate of 45 mL an hour. She is also receiving some standard water flushes through her PEG tube. Plan is to continue with BiPAP support on and off during the day; patient will receive Lasix 40 mg IV twice a day for next 24 hours; remains on IV cefepime; continue with Depakote and Keppra for seizure control 01/24/2021, patient is seen and evaluated in follow-up in the intensive care unit. The patient is currently off the BiPAP; on oxygen at 6 L per minute nasal cannula; overnight she was placed back on the BiPAP and she is back on 6 L of oxygen by nasal cannula. chest x-rays revealed consolidation left upper lobe. The patient has been a negative fluid balance; receiving IV Lasix and she has been at least 3-4 L negative over the past 2 days. She is making excellent urin e output. Remains on enteral feeding for nutritional support via PEG tube. She is receiving vital AF at the rate of 45 mL an hour. She has not had a bowel movement yet. She remains on IV cefepime regarding the pseudomonal growth in her urine and in her lungs. There may be a superimposed pneumonia with Pseudomonas on top of her excessive fluid overload and possibly component of CHF. 01/25/2021 Patient is currently in the MICU. Lethargic and confused. Able to speak 1 word with verbal commands. Patient is off BiPAP and is currently on 4 L oxygen via nasal cannula. Patient is being continued on antibiotics in the form of cefepime with evidence of Pseudomonas in her sputum and urine cultures. Patient has been afebrile. Tolerating PEG tube feeding. Laboratory data showed WBC 9.8 hemoglobin 9.9 sodium 137 potassium 4.0 chloride 95 bicarb is a 86 BUN 30 and creatinine 2.45 Patient is being continued on levothyroxine IV. Patient was seen by neurology and pulmonary is following. 01/26/2021 Patient remains in the intensive care unit. Able to open her eyes with verbal commands. Still lethargic and weak. Currently on oxygen via nasal cannula. Chest x-ray showed bilateral infiltrate and pleural effusion correlate for diffuse pneumonia versus CHF. Findings slightly progress on the right. Patient is being continued on antibiotics in the form of cefepime. Remains on bronchodilators. Tolerating tube feeding. Patient is being continued on Lasix and not accomplished with Eliquis. Also on IV levothyroxine and antiarrhythmic medications. 01/27/2021 Patient is in the medical intensive care unit. Using BiPAP on and off. Patient is on high flow oxygen 6 L by another cannula currently. Chest x-ray showed bilateral infiltrates and pleural effusion. Continue on Lasix 20 mg daily. Patient is being continued on cefepime due to Pseudomonas UTI and sputum cultures positive for Pseudomonas. Patient is tolerating PEG tube feeding. Patient is status post bronchoscopy. Showed tracheal bronchomalacia and mucous plugging. Fluid cultures were sent. Critical care team is following. 01/28/2021 Patient is currently in the intensive care unit. According 6 later oxygen with another cannula. Did use BiPAP last night. Hemodynamically stable. Nonlabored breathing. Patient is awake and alert. Bronchial cultures showed gram-positive bacilli. Otherwise patient is tolerating the tube feeding. Laboratory data showed WBC trending down to 11.2 and hemoglobin 9.9 sodium 144 potassium 4.0 BUN 37 and creatinine 0.67 Patient is being carried on Lasix and also on prednisone 5 mg daily. Patient did have a bowel movement. Patient has been afebrile. 01/29/2021 Patient is a moderately stable. Awake alert and able to communicate better now. I'll send a carbon trending down to 4 L when asked cannula. Patient is tolerating PEG tube feeding. Bronchoscopy cultures showed Corynebacterium species.. Patient is being continued on antibiotics the form of IV cefepime. Patient is being diuresed with Lasix 20 mg daily changed to by mouth. Patient denied any complaints of abdominal pain. No distention or abdominal pain. No nausea vomiting or diarrhea. Patient is being continued on prednisone 5 mg daily by mouth. Continued on breathing treatments. On anticoagulation with Eliquis. 01/30/2021 Patient is on the medical floor. Awake alert and able to communicate.. Patient is being continued on DuoNeb's Current with IV antibiotics in the form of cefepime for total of 10 days for Pseudomonas urinary tract infection. Bronchioloalveolar cultures showed Patient is on anticoagulation with Eliquis 2.5 mg twice daily. Patient has been afebrile. Tolerating tube feeding. Next currently oxygen 2 L when asked cannula. Hemodynamically stable. 01/31/2021 Patient is resting in the bed comfortable. On 38 oxygen or another cannula. Awake alert and started to communicate. Patient has been afebrile. No complains of chest pain or short of breath. Patient is being carried on Lasix 20 mg daily and also on anticoagulants with Eliquis 2.5 mg twice a day Continue with cefepime for 10 day course. Pulmonary is following. Continued on DuoNeb's. No compressive abdominal pain. No diarrhea. Possible discharge to rehab. 02/01/2021 Patient is currently resting in the bed. Awake alert and able to communicate with a 1-2 words. Patient has been afebrile Currently on oxygen at 3 L cannula. Patient was also using BiPAP on and off. Continue with Lasix 20 mg daily and also patient completed 10 day course of cefepime for Pseudomonas UTI. Tolerating tube feedings. Hemodynamically stable. Laboratory data showed WBC 12.6 hemoglobin 10.0 and BUN 32 and creatinine 0.4 Pulmonary is on board. Current medications reviewed. Objective - Vital Signs Vital signs: Vital Signs Temp 96.5 F L 02/03/21 08:00 Pulse 74 02/03/21 09:44 Resp 33 H 02/03/21 08:00 BP 125/79 02/03/21 09:44 Pulse Ox 100 02/03/21 08:00 Intake & Output 02/02/21 02/03/21 02/03/21 18:59 06:59 18:59 Weight 64.5 kg Other: Voiding Method Indwelling Catheter Diaper Incontinent # Voids 1 ABP, PAP, CO, CI - Last Documented Arterial Blood Pressure 122/41 - Exam - Exam -GENERAL: The patient is on oxygen via nasal cannula. Patient is awake alert and communicating.. HEENT: Pupils are round and equally reacting to light. EOMI. No scleral icterus. No conjunctival pallor. Normocephalic, atraumatic. No pharyngeal erythema. No thyromegaly. CARDIOVASCULAR: S1 and S2 present. No murmurs, rubs, or gallops. PULMONARY: Bilateral scattered rhonchi and basilar dementia sounds. Nonlabored breathing.. ABDOMEN: Soft, nontender, nondistended, normoactive bowel sounds. No palpable organomegaly. MUSCULOSKELETAL: No joint swelling or deformity. EXTREMITIES: No cyanosis, clubbing, or pedal edema. NEUROLOGICAL: Gross neurological examination did not reveal any focal deficits. SKIN: No rashes. No petechiae, exam is limited because patient clinical status for example intubation - Labs CBC & Chem 7: 02/02/21 06:15 02/02/21 06:15 Labs: Abnormal Lab Results - Last 24 Hours (Table) 02/02/21 02/02/21 02/02/21 Range/Units 06:15 12:00 17:55 BUN 28.0 H (9.0-27.0) mg/dL Creatinine 0.4 L (0.6-1.5) mg/dL BUN/Creatinine Ratio 70.00 H (12.00-20.00) Ratio POC Glucose (mg/dL) 111 H 114 H (75-99) mg/dL Calcium 8.6 L (8.7-10.3) mg/dL 02/02/21 02/03/21 02/03/21 Range/Units 20:40 00:47 05:17 BUN (9.0-27.0) mg/dL Creatinine (0.6-1.5) mg/dL BUN/Creatinine Ratio (12.00-20.00) Ratio POC Glucose (mg/dL) 110 H 118 H 117 H (75-99) mg/dL Calcium (8.7-10.3) mg/dL Assessment and Plan Assessment: Altered mental status secondary to Suspected breakthrough seizure. Mentation is improving. Acute hypoxic respiratory failure secondary to pneumonia, status post intubation. Currently on oxygen via nasal cannula. Hypotension, improvement Acute urinary tract infection secondary to gram-negative bacilli Acute bilateral pneumonia. Possible hospital-acquired with Pseudomonas aeruginosa. dementia Parkinson disease and mild mental delay. History of atrial fibrillation on and atrial fibrillation. History of asthma History of heart failure History of GERD History of hypertension History of hyperlipidemia History of mitral valve prolapse History of seizure disorder History of hypothyroidism History of Parkinson disease History of developmental delay which is mild History of schizoaffective disorder History of chronic anemia History of moderate aortic stenosis with preserved LV function at ejection fraction of 50-55% History of moderate pulmonary hypertension History of left buttock wound Plan: This is a pleasant 80 years old female who presents with seizure and respiratory failure status post intubation/extubation, currently off BiPAP. Saturating well on nasal cannula. Neurology recommended Keppra continue with Depakote. Continue with iv thyroxine Continue with antibiotics, cefepime. Sputum cultures and urine culture growing Pseudomonas. Blood cultures negative. BAL fluid cultures showed correlate bacteria species likely colonization. Wound team consult Labs and medication were reviewed.. Monitor lytes and vitals. DVT and GI prophylaxis. Further recommendations depends on the clinical course of the patient DVT prophylaxis: On Eliquis GI Prophylaxis: Ppi PT/OT: Pending Prognosis is guarded Time with Patient: Greater than 30
[2021-02-03 11:52] LABS: Glucose,Whole Blood 120 mg/dL (75-99)
--- NOTE | 2021-02-03 12:12 | P.PN ---
Subjective Progress Note Date: 02/03/21 Principal diagnosis: Altered mental status, due to breakthrough seizure, acute bilateral pneumonia This is a 80-year-old female patient, known to me from previous admissions, kn own to have multiple medical problems and comorbidities most significant a history of dementia along with schizophrenia with Parkinson's disease was been essentially bedridden and she has a 24-hour caregiver at home. Recently, the patient has developed a stage IV sacral decub ulcer and the patient was in the hospital yesterday for a debridement procedure that was done and the patient was discharged home. Discharge, the patient was noted to have seizure activity at home. Note that she has history of seizures and she has been maintained on Depakote on outpatient basis. She was given all of her medications with a caregiver without any interruption. Her seizure lasted for few minutes and the patient was postictal. Apparently she was having tonic-clonic activity as documented by the emergency department team. The patient in the emergency was evaluated. Mentation was altered. She was having twitching in her tongue and mouth area and it was suspected that she was having ongoing seizure activity. For that reason, the patient was started on propofol and the patient was intubated and placed on a mechanical ventilator for airway protection. Note that the patient apparently was having seizures in the past. She had to seizure activities back in October 2020. She sees a neurologist out of [facility]. She was seen by her neurologist recently and she has not skipped any of her Depakote doses. The patient was given a total of 1 mg Ativan in the emergency department. Her v alproic acid level was at 92. The patient was seen by neurology today and the patient was given 1 g every 12 hours and the neurologist asked to continue the Depakote. CAT scan of the brain was done in the emergency department showed no acute abnormalities. No reported fever. No reported neck stiffness. No reported aspiration. The patient had a white cell count of 8.4 with a hemoglobin of 10.2. This morning, it out with this patient in intensive care unit. She was on a mechanical ventilator. She was an assist-control at the rate of 14 with tidal volume of 375 and FiO2 of 50% with a PEEP of 5. Blood gas showed a pH of 7.54 with a pCO2 of 34 and pO2 166. Chest patient was somewhat limited as the patient has significant Scoliosis of the thoracic spine. Nevertheless, there was no airspace disease or consolidation. ET tube was in a good location. The patient had no significant orotracheal secretions. The patient remains hemodynamically stable. She was given a total of 2 L of IV fluids in the emergency department and she did not require any pressors. Her cardiac rhythm was sinus all of the patient has history of atrial fibrillation and she is maintained on anticoagulation with Eliquis. She also has obstructive sleep apnea and this was severe with an AHI of 76 and she was placed on APAP on outpatient basis. There is a month her various other comorbidities. 01/20/2021 the patient is being seen in follow-up in the intensive care unit. The patient got extubated yesterday and currently she is on a BiPAP at a pressure of 10/5 cm of water with an FiO2 of 60%. She is arousable. She is generating tidal volumes in the 550 range with a respiratory rate of 20. The bl ood gases from today showed a pH of 7.37 with a pCO2 of 48 empiric of 103. She is calm and comfortable while being on a BiPAP. Note that the patient postextubation she was placed on a BiPAP knowing that she has also severe obstructive sleep apnea. Chest x-ray from today shows some residual atelectatic changes and left lower lobe. Otherwise no acute abnormalities have been noted. Overnight, no seizure activity has been noted. The patient is free of any seizures for now. A EEG was done yesterday that showed abnormal findings with slowing suggestive of some mild encephalopathy. Meanwhile, the patient remains on Keppra 500 mg twice a day through her PEG tube and she is also on valproic a allen syrup. TSH is down to 10.1. Free T4 is at 1.84. Rest of the electrolytes all stable for now. She is arousable. Brunson cath is in place. IV fluids are running at the rate of 75 mL an hour. 01/21/2021, I'm seeing this patient for a follow-up. Postextubation, the patient did well initially and she was doing well on a BiPAP and the patient was also able to transition to oxygen by nasal cannula. Nevertheless, over the past 24 hours and specially over the past 12 hours, the patient's condition has gotten worse. Repeat chest x-ray from this morning is showing bilateral pulmonary infiltrates, patchy, involving the left upper lobe and the right lower lobe. Sputum cultures collected earlier jewel bearing turner to be positive for pseudomonas aeruginosa and the patient was started on IV cefepime. Currently she is on BiPAP at a pressure of 10/5 cm of water with an FiO2 of 50%. She is quite sugge stive the BiPAP. Nevertheless, she does lethargic and she seems to be more lethargic compared to yesterday. She opens her eyes upon termination she is following only simple commands. Hemodynamically stable on no pressors. No seizure activity has been noted. She is receiving enteral feeding for nutritional support and the PEG tube is functional at this point in time. Her white cell count is at 7.7. Her blood gases was done and FiO2 of 60% while the patient being on a BiPAP at a pressure of 10/5 in the blood case with a pH of 7.41 with a pCO2 of 46 and a pO2 of 144. Her pro-calcitonin level is at 0.07. Note that pseudomonas aeruginosa was also cultured and the patient's urine. On 01/22/2021 patient seen in follow-up in the intensive care unit, she is still lethargic, appears to be no acute distress, she is still on BiPAP support with pressures of 10/5 and FiO2 of 60%. Her pulse ox is around 93-95%, she is afebrile, her breathing is a bit more labored today, she had a chest x-ray completed today which showed worsening bilateral infiltrates with the possibility of a layering pleural effusion. She was given a dose of IV Lasix this morning 40 mg IV push and she is diuresing profusely, her oxygenation had since improved from 88% to 93% on FiO2 of 60%. Patient seems to be responding nicely to IV Lasix and she has been given an additional dose of 40 of Lasix this afternoon. She remains on cefepime for antibiotic coverage, her sputum and urine cultures were both positive for pseudomonas aeruginosa. Afebrile overnight, not requiring any vasopressor support. She is on 0.9 normal saline at a rate of 20 ML per hour. He slept 7 reviewed, her white count is 8.2, hemoglobin is 9.5, electrolytes are within normal limits, BUN is 50 creatinine 0.36. Patient is tolerating tube feedings, she is receiving vital AF at 45 with a goal of 45 and standard water flushes. On 01/25/2021 patient seen in follow-up in intensive care unit, this morning she is a bit more lethargic compared to yesterday's exam, however she is verbally responding, although she is confused. She is following basic commands. Denies any acute distress, she is currently off BiPAP support, currently on 4 L of oxygen her pulse ox is 92%, hemodynamically she is a bit hypotensive on today's vitals, with short in the 70s over 50s. After recycling the blood pressure cuff blood pressure is 85/81. Clinically patient although slightly somnolent, but she is warm and dry, she is on IV diuretics with Lasix 40 mg once daily, 0.4 L in the urine output in last 24 hours. No new chest x-ray today, no worsening dyspnea, diminished lung sounds at the bases, no wheezes or rhonchi. Patient remains on cefepime for evidence of Pseudomonas in her sputum and urine cultures. She's had no fever or chills. Patient is tolerating PEG tube feedings, she is currently receiving vital AF at 45 with a goal of 45 and standard water flushes. Abdomen is soft, however patient has not had a bowel movement in several days. Labs have been reviewed showing white blood cell count of 9.8, hemoglobin is 9.9, sodium is 137, potassium is 4.0, chloride is 95, CO2 36, BUN is 30, creatinine 0.48, LFTs are within normal limits The patient is seen today 01/26/2021 in follow-up in the intensive care unit. She is more awake and alert today. Opening her eyes and around. Answering some simple questions appropriately. She did wear her BiPAP 10/5 and 60% FiO2. Currently on 6 L high flow nasal cannula and maintaining O2 saturations in the 90s. His x-ray continues to show bilateral infiltrate with small pleural effusi ons. Sputum and urine cultures positive for pseudomonas aeruginosa. White count 9.3. Hemoglobin 10.7. Sodium 139. Potassium 4.2. Creatinine 0.49. She remains on cefepime. Continued on bronchodilators. Remains on diuretics. Anticoagulated with Eliquis. Continued on her anticonvulsants. She is being nourished with vital AF at 45 ML's per hour which is goal via PEG tube feedings with free water flushes. Abdomen remains soft. No seizure activity. The patient is seen today 02/02/2021 in follow-up on the regular medical floor. She is currently resting comfortably in bed. Awake and alert. No acute distress. Alternating between BiPAP and 3 L/m per nasal cannula. He'll wash cultures have been positive for corynebacterium stratum, yeast. White count 10.3. Hemoglobin 8.8. Sodium 145. Potassium 4.2. Creatinine 0.4. She is anticoagulated with Eliquis. Remains on bronchodilators. The patient is seen today 02/03/2021 in follow-up on the regular medical floor. She is currently resting in bed. Awake, alert in no acute distress. She is answering some yes no questions appropriately. Blood glucose 120. She remains on bronchodilators. Anticoagulated with Eliquis. Objective - Vital Signs Vital signs: Vital Signs Temp 96.5 F L 02/03/21 08:00 Pulse 76 02/03/21 12:03 Resp 33 H 02/03/21 08:00 BP 125/79 02/03/21 09:44 Pulse Ox 100 02/03/21 08:00 Intake & Output 02/02/21 02/03/21 02/03/21 18:59 06:59 18:59 Weight 64.5 kg Other: Voiding Method Indwelling Catheter Diaper Incontinent # Voids 1 ABP, PAP, CO, CI - Last Documented Arterial Blood Pressure 122/41 - Exam A 80-year-old female patient currently resting comfortably on continue with BiPAP and 3 L nasal cannula. She is arousable. She is alert today, but easily arousable to verbal stimulation, she is providing some simple verbal responses, she is confused, she is mostly repeating questions, following basic commands Head exam was generally normal. There was no scleral icterus or corneal arcus. Mucous membranes were moist. Neck was supple and without jugular venous distension, thyromegaly, or carotid bruits. Carotids were easily palpable bilaterally. There was no adenopathy. Lungs are diminished and the patient is on obvious thoracic and thoracolumbar kyphoscoliosis with cervical kyphosis. Rest of the equal and symmetrical. No wheezes or rhonchi. Cardiac exam revealed the PMI to be normally situated and sized. The rhythm was regular and no extrasystoles were noted during several minutes of auscultation. The first and second heart sounds were normal and physiologic splitting of the second heart sound was noted. There were systolic ejection murmur consistent with aortic stenosis , rubs, clicks, or gallops. Abdominal exam revealed normal bowel sounds. The abdomen was soft, non-tender, and without masses, organomegaly, or appreciable enlargement of the abdominal aorta. The patient is a PEG tube in place and the PEG tube site is dry clean and intact and there is no direct tenderness or rebound tensile guarding. Bowel sounds are hypoactive at the present Examination of the extremities revealed easily palpable radial, femoral and pedal pulses. There was no cyanosis, clubbing or edema. Examination of the skin revealed no evidence of significant rashes, suspicious appearing nevi or other concerning lesions. 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 Neurologically the patient is following some simple commands. No focal neurological deficit. She is currently off propofol. - Labs CBC & Chem 7: 02/02/21 06:15 02/02/21 06:15 Labs: Abnormal Lab Results - Last 24 Hours (Table) 02/02/21 02/02/21 02/03/21 Range/Units 17:55 20:40 00:47 POC Glucose (mg/dL) 114 H 110 H 118 H (75-99) mg/dL 02/03/21 02/03/21 Range/Units 05:17 11:48 POC Glucose (mg/dL) 117 H 120 H (75-99) mg/dL Assessment and Plan Assessment: 1 altered mentation secondary to breakthrough seizure and the patient with known history of epilepsy was maintained on Depakote on outpatient basis. The patient is currently free of any seizures maintained on a combination of Keppra and valproic acid. Improved and more awake and alert today. 2 acute bilateral pneumonia, consider hospital-acquired pneumonia with pseudomonas aeruginosa. Initial chest x-ray was clear during the current hospitalization and post extubation the patient developed bilateral consolidation consistent with pseudomonal pneumonia and the patient is currently on IV cefepime. 3 acute hypoxic respiratory failure. The patient recovered from respiratory failure initially the patient was extubated successfully. Subsequently she developed bilateral pneumonia secondary to pseudomonas aeruginosa and currently on BiPAP at pressure of 10/5 and FiO2 of 60% alternating with oxygen 6 L high flow nasal cannula. Blood gases was noted and the patient is currently on IV cefepime. 4 dementia 5 Parkinson's disease, mild developmental delay 6 schizoaffective disorder 7 history of epilepsy 8 history of moderate degree of aortic stenosis and the patient has an obvious cardiac murmur on examination. Based on previous echocardiogram, ejection fraction was around 50-55% and the patient has moderate degree of pulmonary hypertension 9 stage IV left buttocks ulcers post-debridement without evidence of any acute infection. 10 esophageal stricture and the patient has a PEG tube in place for enteral feeding and nutritional support 11 abnormal gait due to our concern is and then dementia and the patient is wheelchair-bound and the patient has a caregiver at all 24 7 12 history approximately atrial fibrillation current rhythm is sinus 13 hypertension 14 hyperlipidemia 15 previous history of pneumonia and respiratory failure requiring prolonged hospitalization mechanical ventilation 16 history of recurrent UTIs, urine cultures is indicating Pseudomonas in her jaws and the patient is curren tly on IV cefepime.17 hypothyroidism 18 obstructive sleep apnea with an AHI of 78 maintained on a Pap on outpatient basis Plan: The patient was seen and evaluated by Dr. Childers Cleared for discharge from the pulmonary standpoint I, the cosigning physician, performed a history & physical examination of the patient. Lungs sounds are clear, diminished. Maintaining good O2 saturations in the 90s on 3 L nasal cannula, alternating with BiPAP. I discussed the assessment and plan of care with my nurse practitioner, Rica Thomas. I attest to the above note as dictated by her.
[2021-02-03 12:15] VITALS: PULSE 72
[2021-02-03 13:15] VITALS: BMI 29.7
== END 2021-02-03 15:29 | disposition home health service (06) | DRG 981 ==
LOC: EC 18:33 → 2SICU 21:40 → 4SSUR 01-29 18:29
PROVIDERS: ADMIT Internal Medicine; ATTEND Internal Medicine
PROC: 0BH17EZ Insertion of Endotracheal Airway into Trachea, Via Natural or Artificial Opening (ICD-10-PCS; 2021-01-18)
PROC: 5A1945Z Respiratory Ventilation, 24-96 Consecutive Hours (ICD-10-PCS; 2021-01-18)
PROC: 0D9670Z Drainage of Stomach with Drainage Device, Via Natural or Artificial Opening (ICD-10-PCS; 2021-01-19)
PROC: 5A09557 Assistance with Respiratory Ventilation, Greater than 96 Consecutive Hours, Continuous Positive Airway Pressure (ICD-10-PCS; 2021-01-20)
PROC: 3E0G76Z Introduction of Nutritional Substance into Upper GI, Via Natural or Artificial Opening (ICD-10-PCS; 2021-01-20)
PROC: 0WCQ8ZZ Extirpation of Matter from Respiratory Tract, Via Natural or Artificial Opening Endoscopic (ICD-10-PCS; principal; 2021-01-27)
PROC: 0B9D8ZX Drainage of Right Middle Lung Lobe, Via Natural or Artificial Opening Endoscopic, Diagnostic (ICD-10-PCS; principal; 2021-01-27)
DX: G40.901 Epilepsy, unspecified, not intractable, with status epilepticus (principal); E03.5 Myxedema coma; J96.01 Acute respiratory failure with hypoxia; J15.1 Pneumonia due to Pseudomonas; E43 Unspecified severe protein-calorie malnutrition; L89.324 Pressure ulcer of left buttock, stage 4; R57.9 Shock, unspecified; T17.890A Other foreign object in other parts of respiratory tract causing asphyxiation, initial encounter; G91.2 (Idiopathic) normal pressure hydrocephalus; Z43.1 Encounter for attention to gastrostomy; E87.1 Hypo-osmolality and hyponatremia; N39.0 Urinary tract infection, site not specified; I27.20 Pulmonary hypertension, unspecified; F02.80 Dementia in other diseases classified elsewhere, unspecified severity, without behavioral disturbance, psychotic disturbance, mood disturbance, and anxiety; G20 Parkinson's disease; I11.0 Hypertensive heart disease with heart failure; I50.9 Heart failure, unspecified; F25.9 Schizoaffective disorder, unspecified; F39 Unspecified mood [affective] disorder; I48.0 Paroxysmal atrial fibrillation; Z20.822 Contact with and (suspected) exposure to COVID-19; J98.09 Other diseases of bronchus, not elsewhere classified; K22.2 Esophageal obstruction; J39.8 Other specified diseases of upper respiratory tract; G47.33 Obstructive sleep apnea (adult) (pediatric); I44.0 Atrioventricular block, first degree; T88.4XXA Failed or difficult intubation, initial encounter; E78.5 Hyperlipidemia, unspecified; I08.0 Rheumatic disorders of both mitral and aortic valves; K21.9 Gastro-esophageal reflux disease without esophagitis; J45.909 Unspecified asthma, uncomplicated; M41.9 Scoliosis, unspecified; D64.9 Anemia, unspecified; F89 Unspecified disorder of psychological development; R32 Unspecified urinary incontinence; Z79.01 Long term (current) use of anticoagulants; Z79.82 Long term (current) use of aspirin; Z79.51 Long term (current) use of inhaled steroids; Z79.890 Hormone replacement therapy; Z79.52 Long term (current) use of systemic steroids; Z79.899 Other long term (current) drug therapy; Z87.01 Personal history of pneumonia (recurrent); Z87.440 Personal history of urinary (tract) infections; Z86.14 Personal history of Methicillin resistant Staphylococcus aureus infection; Z87.891 Personal history of nicotine dependence; Z87.81 Personal history of (healed) traumatic fracture; Z96.641 Presence of right artificial hip joint; Z99.3 Dependence on wheelchair; Z74.01 Bed confinement status; Z98.890 Other specified postprocedural states; Z88.2 Allergy status to sulfonamides; Z82.0 Family history of epilepsy and other diseases of the nervous system; Z80.9 Family history of malignant neoplasm, unspecified
CPT/HCPCS: 31624; 36415; 70450; 71045; 71046; 80048; 80053; 80164; 80165; 81001; 82805; 83605; 83735; 83880; 84100; 84132; 84145; 84439; 84443; 85025; 85027; 87040; 87070; 87077; 87086; 87102; 87116; 87186; 87205; 87206; 87252; 87496; 87498; 87502; 87529; 87634; 87635; 87798; 88108; 88305; 93005; 94003; 94640; 94660; 94760; 95816; 96361; 96374; 96375; 99291

== ENCOUNTER 2021-02-27 23:49 | Inpatient (IN) | payer MEDICARE, OTHER ==
--- NOTE | 2021-02-28 01:21 | CT ---
EXAMINATION TYPE: CT abdomen pelvis wo con DATE OF EXAM: 02/28/2021 COMPARISON: 01/28/2019 HISTORY: Abdominal pain CT DLP: 836.8 mGycm Automated exposure control for dose reduction was used. There is coarse interstitial and airspace infiltrate in both lower lung huynh. There is some patchy atelectasis at the lung bases. Heart is borderline enlarged. There is no pericardial effusion. Liver and spleen are intact. There are calcified small gallstones. Gallbladder measures 4 cm. The jeffery e ducts are not dilated. I see no evidence of pancreatic mass. The stomach appears intact. There is g astrostomy tube noted in the anterior wall of the stomach. There is right hip nailing. There is apparent destructive changes of the right femoral head. There is retained fecal material in the large bowel. There is no evidence of free air. There is minim al free fluid in the left paracolic gutter. Lumbar spine is intact. There is some mild compression deformity at L3 and L4 and L5 up to 30%. The p elvic ring is intact. IMPRESSION: There are bilateral basilar pulmonary infiltrates and atelectasis significantly increased compared to old exam. Cholelithiasis. Mildly dilated gallbladder appears new compared to old exam. Constipation. No free air. Minimal intraperitoneal fluid of uncertain significance. Destructive mittal es at the right femoral head and acetabulum similar to old exam.
--- NOTE | 2021-02-28 01:40 | ED ---
General Adult HPI - General Chief complaint: GI Bleed Stated complaint: GI Bleed Time Seen by Provider: 02/28/21 00:08 Source: EMS Mode of arrival: EMS Limitations: language barrier, altered mental status, physical limitation - History of Present Illness Initial comments: This patient is 80-year-old woman who presents to the emergency department to be evaluated for abdominal distention and multiple episodes of vomiting. Most of the history is from the patient's caregiver, as the patient has some underlying developmental delay. She is able to answer simple direct questions. It appears the patient started having some vomiting going back up to about 36 hours ago. Since the vomiting has developed the patient also seems to be having increasing abdominal distention. With the last few episodes of vomiting there appeared to be some coffee-ground material. When directly questioned, patient is denying abdominal pain. No fevers noted. The patient does have history of intermittent constipation and did go number days without bowel movement and then did pass some liquid stool -: hour(s) Location: abdomen Improves with: none Worsens with: none Associated Symptoms: nausea/vomiting Treatments Prior to Arrival: none - Related Data Home Medications Medication Instructions Recorded Confirmed Aspirin 81 mg PEG/G-TUBE DAILY@0809/09/14 02/28/21 risperiDONE [RisperDAL] 1 mg PEG/G-TUBE BID@799,199909/09/14 02/28/21 Atorvastatin [Lipitor] 5 mg PEG/G-TUBE MOWEFR@79906/16/18 02/28/21 Latanoprost [Xalatan 0.005%] 1 drop BOTH EYES HS@199910/08/18 02/28/21 Valproic Acid Oral Soln [Depakene 500 mg PEG/G-TUBE BID@799,199910/08/18 02/28/21 Syrup] Levothyroxine Sodium [Synthroid] 175 mcg PEG/G-TUBE DAILY@59910/23/19 02/28/21 Lactulose [Constulose] 10 gm PEG/G-TUBE DAILY@79906/09/20 02/28/21 Montelukast Chew [Singulair chew] 5 mg PEG/G-TUBE DAILY@0806/09/20 02/28/21 Apixaban [Eliquis] 2.5 mg PEG/G-TUBE BID@08,199901/18/21 02/28/21 Omeprazole [PriLOSEC] 40 mg PEG/G-TUBE DAILY@79901/18/21 02/28/21 predniSONE 5 mg PEG/G-TUBE DAILY@79901/18/21 02/28/21 Acetaminophen Tab [Tylenol Tab] 500 mg PO Q6H PRN 02/28/21 02/28/21 Albuterol Nebulized [Ventolin 2.5 mg INHALATION RT-QID PRN 02/28/21 02/28/21 Nebulized] Furosemide [Lasix] 40 mg PEG/G-TUBE DAILY@79902/28/21 02/28/21 diphenhydrAMINE [Benadryl] 25 mg PO TID PRN 02/28/21 02/28/21 levETIRAcetam [Keppra] 500 mg PEG/G-TUBE BID@08,199902/28/21 02/28/21 Allergies Allergy/AdvReac Type Severity Reaction Status Date / Time sulfamethoxazole Allergy Rash/Hives Verified 02/28/21 08:44 [From Bactrim] trimethoprim [From Bactrim] Allergy Rash/Hives Verified 02/28/21 08:44 Review of Systems ROS Statement: Those systems with pertinent positive or pertinent negative responses have been documented in the HPI. ROS Other: All systems not noted in ROS Statement are negative. Constitutional: Denies: fever, weakness Respiratory: Denies: cough, dyspnea Cardiovascular: Denies: chest pain, edema Gastrointestinal: Reports: as per HPI, abdominal pain, vomiting, constipation. Denies: diarrhea, melena, hematochezia Genitourinary: Denies: dysuria, hematuria Musculoskeletal: Denies: back pain Skin: Denies: rash Neurological: Denies: headache Past Medical History Past Medical History: Atrial Fibrillation, Asthma, Blood Disorder, Heart Failure, Dementia, GERD/Reflux, Hyperlipidemia, Hypertension, Mitral Valve Prolapse (MVP), Pneumonia, Seizure Disorder, Skin Disorder, Thyroid Disorder Additional Past Medical History / Comment(s): History Parkinson's disease, dementia, mild developmental delay, schizoaffective disorder, seizure x1 2018, chronic anemia, recurrent UTIs, uses w/c with assist, hypothyroidism, moderate degree aortic stenosis w/preserved LV function, ejection fraction of 50-55%, moderate pulmonary hypertension. Wound lt buttock, homecare 3x per wk. Has peg t ube, hx esophagus collapsesstenosis with a preserved LV function and ejection fraction of 50-55% and the patient has moderate pulmonary hypertension with a PA pressure of 49. History of Any Multi-Drug Resistant Organisms: MRSA Date of last positivie culture/infection: 01/20/20 MDRO Source:: MRSA BUTTOCK Past Surgical History: Joint Replacement Additional Past Surgical History / Comment(s): RIGHT HIP; ORIF OF RIGHT ELBOW (09/11/2014) - later to remove pins. Peg tube. EGD. Past Anesthesia/Blood Transfusion Reactions: No Reported Reaction Additional Past Anesthesia/Blood Transfusion Reaction / Comment(s): PEG TUBE HISTORY Past Psychological History: Depression, Schizophrenia Smoking Status: Former smoker Past Alcohol Use History: None Reported Past Drug Use History: None Reported - Past Family History Brother(s) Family Medical History: Seizure Disorder Additional Family Medical History / Comment(s): parkinsons Sister(s) Family Medical History: Cancer General Exam Limitations: language barrier, altered mental status, physical limitation General appearance: alert, in no apparent distress Head exam: Present: atraumatic, normocephalic Eye exam: Present: normal appearance Respiratory exam: Present: rales (Bilateral bases). Absent: respiratory distress, wheezes, rhonchi, stridor Cardiovascular Exam: Present: regular rate, normal rhythm, normal heart sounds. Absent: systolic murmur, diastolic murmur, rubs, gallop GI/Abdominal exam: Present: distended. Absent: tenderness, guarding, rebound, rigid, mass, pulsatile mass, hernia Extremities exam: Present: normal inspection, normal capillary refill. Absent: pedal edema, calf tenderness Back exam: Present: normal inspection. Absent: CVA tenderness (R), CVA tenderness (L) Neurological exam: Present: alert Skin exam: Present: warm, dry, intact, normal color. Absent: rash Course Vital Signs 02/28/21 02/28/21 02/28/21 00:09 00:35 02:05 Temperature 97.9 F Pulse Rate 106 H 105 H Respiratory 24 16 Rate Blood Pressure 81/60 99/89 90/40 O2 Sat by Pulse 96 88 L Oximetry 02/28/21 02/28/21 02/28/21 02:22 03:10 04:30 Temperature Pulse Rate 100 102 H 95 Respiratory 18 18 18 Rate Blood Pressure 93/48 101/41 104/40 O2 Sat by Pulse 94 L 99 94 L Oximetry 02/28/21 02/28/21 02/28/21 05:11 06:12 07:46 Temperature Pulse Rate 89 87 98 Respiratory 22 18 26 H Rate Blood Pressure 106/76 90/43 95/64 O2 Sat by Pulse 98 95 96 Oximetry 02/28/21 02/28/21 02/28/21 08:25 10:00 10:33 Temperature Pulse Rate 91 93 89 Respiratory 24 27 H 18 Rate Blood Pressure 124/63 124/63 121/68 O2 Sat by Pulse 98 92 L 98 Oximetry 02/28/21 02/28/21 02/28/21 12:26 16:47 17:55 Temperature Pulse Rate 80 89 92 Respiratory 20 20 20 Rate Blood Pressure 121/58 99/45 110/61 O2 Sat by Pulse 96 94 L Oximetry 02/28/21 02/28/21 02/28/21 20:04 20:15 21:23 Temperature Pulse Rate 83 94 92 Respiratory 20 Rate Blood Pressure 115/56 O2 Sat by Pulse 95 Oximetry 02/28/21 03/01/21 03/01/21 23:10 06:00 08:56 Temperature Pulse Rate 87 93 Respiratory 20 18 Rate Blood Pressure 111/51 123/64 O2 Sat by Pulse 96 95 Oximetry 03/01/21 03/01/21 03/01/21 09:00 09:07 10:32 Temperature Pulse Rate 80 88 87 Respiratory 24 22 Rate Blood Pressure 109/57 113/74 O2 Sat by Pulse 95 95 Oximetry 03/01/21 03/01/21 03/01/21 12:15 12:18 12:24 Temperature Pulse Rate 89 76 76 Respiratory 18 Rate Blood Pressure 81/38 O2 Sat by Pulse 91 L Oximetry 03/01/21 03/01/21 03/01/21 12:46 13:10 14:11 Temperature Pulse Rate 75 87 87 Respiratory 18 18 24 Rate Blood Pressure 70/48 73/62 77/51 O2 Sat by Pulse 92 L 94 L 84 L Oximetry 03/01/21 03/01/21 03/01/21 14:43 14:59 15:38 Temperature 97.7 F Pulse Rate 89 85 111 H Respiratory 22 22 18 Rate Blood Pressure 106/56 97/68 104/55 O2 Sat by Pulse 93 L 92 L 94 L Oximetry 03/01/21 03/01/21 16:05 17:11 Temperature Pulse Rate 94 91 Respiratory 22 20 Rate Blood Pressure 111/56 113/59 O2 Sat by Pulse 92 L 91 L Oximetry Procedures - Sepsis Sepsis Focused Exam #1 Sepsis Focused Exam Date: 02/28/21 Sepsis Focused Exam Time: 06:45 Sepsis Focused Exam Complete: Yes Vital Signs & RN Notes Reviewed: Yes Capillary Refill: < 2 Seconds: Fingers Peripheral Pulses: Normal: Radial (R) Skin Color: Pallor Respiratory Exam: rales, rhonchi Cardiovascular Exam: regular rate, normal rhythm, normal heart sounds Medical Decision Making - Medical Decision Making Patient is 80-year-old woman with developmental delay who presents with multiple episodes of vomiting and does appear to have constipation to such a degree there is almost obstruction. There is also aspiration pneumonia. Patient with acute kidney injury and there is elevated troponin, suspect that the injury) cardiac ischemia. Patient started on antibiotics. Sepsis bolus given her ideal body weight. NG tube was passed to relieve vomiting and moderate amount of stomach content withdrawn. - Lab Data Result diagrams: 03/05/21 04:05 03/05/21 04:05 Lab Results 02/28/21 02/28/21 02/28/21 Range/Units 00:48 01:22 01:30 WBC 36.3 H (3.8-10.6) k/uL RBC 3.55 L (3.80-5.40) m/uL Hgb 10.4 L (11.4-16.0) gm/dL Hct 32.2 L (34.0-46.0) % MCV 90.9 (80.0-100.0) fL MCH 29.3 (25.0-35.0) pg MCHC 32.3 (31.0-37.0) g/dL RDW 15.9 H (11.5-15.5) % Plt Count 140 L D (150-450) k/uL MPV 9.8 Neutrophils % (Manual) 76 % Band Neuts % (Manual) 18 % Lymphocytes % (Manual) 4 % Monocytes % (Manual) 2 % Metamyelocytes % 1 % Neutrophils # (Manual) 34.10 H (1.3-7.7) k/uL Lymphocytes # (Manual) 1.45 (1.0-4.8) k/uL Monocytes # (Manual) 0.73 (0-1.0) k/uL Metamyelocytes # (Man) 0.36 H (0) k/uL Nucleated RBCs 0 (0-0) /100 WBC Manual Slide Review Performed RBC Morphology Normal APTT (22.0-30.0) sec Sodium (137-145) mmol/L Potassium (3.5-5.1) mmol/L Chloride (98-107) mmol/L Carbon Dioxide (22-30) mmol/L Anion Gap mmol/L BUN (7-17) mg/dL Creatinine (0.52-1.04) mg/dL Est GFR (CKD-EPI)AfAm (>60 ml/min/1.73 sqM) Est GFR (CKD-EPI)NonAf (>60 ml/min/1.73 sqM) Glucose (74-99) mg/dL Lactic Ac Sepsis Rflx Plasma Lactic Acid Jason (0.7-2.0) mmol/L Calcium (8.4-10.2) mg/dL Total Bilirubin (0.2-1.3) mg/dL AST (14-36) U/L ALT (4-34) U/L Alkaline Phosphatase (38-126) U/L Troponin I (0.000-0.034) ng/mL Total Protein (6.3-8.2) g/dL Albumin (3.5-5.0) g/dL Gastric Occult Blood Positive (Negative) Blood Type AB Positive Blood Type Recheck AB Pos Bld Type Recheck Status No Antibody Screen NEGATIVE Spec Expiration Date 03/03/2021 - 234702/28/21 02/28/21 02/28/21 Range/Units 01:30 01:30 01:30 WBC (3.8-10.6) k/uL RBC (3.80-5.40) m/uL Hgb (11.4-16.0) gm/dL Hct (34.0-46.0) % MCV (80.0-100.0) fL MCH (25.0-35.0) pg MCHC (31.0-37.0) g/dL RDW (11.5-15.5) % Plt Count (150-450) k/uL MPV Neutrophils % (Manual) % Band Neuts % (Manual) % Lymphocytes % (Manual) % Monocytes % (Manual) % Metamyelocytes % % Neutrophils # (Manual) (1.3-7.7) k/uL Lymphocytes # (Manual) (1.0-4.8) k/uL Monocytes # (Manual) (0-1.0) k/uL Metamyelocytes # (Man) (0) k/uL Nucleated RBCs (0-0) /100 WBC Manual Slide Review RBC Morphology APTT 26.8 (22.0-30.0) sec Sodium 130 L (137-145) mmol/L Potassium 3.6 (3.5-5.1) mmol/L Chloride 83 L (98-107) mmol/L Carbon Dioxide 30 (22-30) mmol/L Anion Gap 17 mmol/L BUN 58 H (7-17) mg/dL Creatinine 1.49 H (0.52-1.04) mg/dL Est GFR (CKD-EPI)AfAm 38 (>60 ml/min/1.73 sqM) Est GFR (CKD-EPI)NonAf 33 (>60 ml/min/1.73 sqM) Glucose 54 L (74-99) mg/dL Lactic Ac Sepsis Rflx Plasma Lactic Acid Jason (0.7-2.0) mmol/L Calcium 8.4 (8.4-10.2) mg/dL Total Bilirubin 0.5 (0.2-1.3) mg/dL AST 56 H (14-36) U/L ALT 24 (4-34) U/L Alkaline Phosphatase 93 (38-126) U/L Troponin I 0.043 H* (0.000-0.034) ng/mL Total Protein 6.2 L (6.3-8.2) g/dL Albumin 3.2 L (3.5-5.0) g/dL Gastric Occult Blood (Negative) Blood Type Blood Type Recheck Bld Type Recheck Status Antibody Screen Spec Expiration Date 02/28/21 02/28/21 Range/Units 01:35 02:00 WBC (3.8-10.6) k/uL RBC (3.80-5.40) m/uL Hgb (11.4-16.0) gm/dL Hct (34.0-46.0) % MCV (80.0-100.0) fL MCH (25.0-35.0) pg MCHC (31.0-37.0) g/dL RDW (11.5-15.5) % Plt Count (150-450) k/uL MPV Neutrophils % (Manual) % Band Neuts % (Manual) % Lymphocytes % (Manual) % Monocytes % (Manual) % Metamyelocytes % % Neutrophils # (Manual) (1.3-7.7) k/uL Lymphocytes # (Manual) (1.0-4.8) k/uL Monocytes # (Manual) (0-1.0) k/uL Metamyelocytes # (Man) (0) k/uL Nucleated RBCs (0-0) /100 WBC Manual Slide Review RBC Morphology APTT (22.0-30.0) sec Sodium (137-145) mmol/L Potassium (3.5-5.1) mmol/L Chloride (98-107) mmol/L Carbon Dioxide (22-30) mmol/L Anion Gap mmol/L BUN (7-17) mg/dL Creatinine (0.52-1.04) mg/dL Est GFR (CKD-EPI)AfAm (>60 ml/min/1.73 sqM) Est GFR (CKD-EPI)NonAf (>60 ml/min/1.73 sqM) Glucose (74-99) mg/dL Lactic Ac Sepsis Rflx Y Plasma Lactic Acid Jason 4.2 H* (0.7-2.0) mmol/L Calcium (8.4-10.2) mg/dL Total Bilirubin (0.2-1.3) mg/dL AST (14-36) U/L ALT (4-34) U/L Alkaline Phosphatase (38-126) U/L Troponin I (0.000-0.034) ng/mL Total Protein (6.3-8.2) g/dL Albumin (3.5-5.0) g/dL Gastric Occult Blood (Negative) Blood Type Blood Type Recheck Bld Type Recheck Status Antibody Screen Spec Expiration Date Critical Care Time Critical Care Time: Yes (40 minutes) Disposition Clinical Impression: Aspiration pneumonia, Constipation, Acute kidney injury, Sepsis, Lactic acidosis, Elevated troponin I level Disposition: ADMITTED IP TO THIS [facility] Condition: Poor
[2021-02-28 01:59] LABS: Albumin 3.2 g/dL (3.5-5.0); Calcium 8.4 mg/dL (8.4-10.2); Total Bilirubin 0.5 mg/dL (0.2-1.3); Total Protein 6.2 g/dL (6.3-8.2)
[2021-02-28 02:09] LABS: HCT 32.2 % (34.0-46.0); HGB 10.4 gm/dL (11.4-16.0); MCH 29.3 pg (25.0-35.0); MCHC 32.3 g/dL (31.0-37.0); MCV 90.9 fL (80.0-100.0); Mean Platelet Volume 9.8; RBC 3.55 m/uL (3.80-5.40); RDW 15.9 % (11.5-15.5); WBC 36.3 k/uL (3.8-10.6)
[2021-02-28 02:10] LABS: Platelet Count 140 k/uL (150-450)
[2021-02-28 02:15] LABS: Potassium 3.6 mmol/L (3.5-5.1)
[2021-02-28] MEDS ORDERED: SODIUM CHLORIDE 0.9% 1,000 ML IV ONE ×2 (02:33→07:24)
[2021-02-28] MEDS ORDERED: SODIUM CHLORIDE 0.9% 1,000 ML IV STA (02:33)
[2021-02-28 02:51] LABS: Band Neutrophils % 18 %; Lymphocytes # (M) 1.45 k/uL (1.0-4.8); Metamyelocytes # (M) 0.36 k/uL (0); Metamyelocytes % 1 %; Monocytes # (M) 0.73 k/uL (0-1.0); Neutrophils % (M) 76 %; Nucleated Red Blood Cells 0 /100 WBC (0-0); Total Cells Counted 200
[2021-02-28] MEDS ORDERED: AMPICILLIN-SULBACTAM 3 GM in SODIUM CHLORIDE 0.9% 100 ML IVPB STA (04:23)
[2021-02-28] MEDS ORDERED: PNEUMONIA PROTOCOL UTILIZED 1 EACH MISC PO PRN (04:55)
[2021-02-28] MEDS ORDERED: ONDANSETRON 4 MG/2 ML VIAL IVP PRN (07:43)
[2021-02-28] MEDS ORDERED: PIPERACILLIN-TAZOBACTAM 3.375 GM in SODIUM CHLORIDE 0.9% 100 ML IVPB SCH (08:00)
--- NOTE | 2021-02-28 08:03 | XR ---
EXAMINATION TYPE: XR chest 1V portable DATE OF EXAM: 02/28/2021 COMPARISON: 01/28/2021 HISTORY: Vomiting TECHNIQUE: Single frontal view of the chest is obtained. FINDINGS: There is an NG tube within the stomach. There is diffuse fine interstitial opacity which appears less prominent than on the prior study. Ther e has been interval development of small bilateral pleural effusions. The heart is enlarged. There is no pneumothorax. The osseous structures are intact. IMPRESSION: 1. NG tube which appears to be within the stomach. 2. Interval development of small to moderate bilateral pleural effusions and possibly mild interstit ial edema. The findings are consistent with CHF. Clinical correlation short-term follow-up to [facility] is recommended.
[2021-02-28] MEDS: metroNIDAZOLE-NS PMX 500 MG in SALINE 1 100ML.BAG IVPB SCH ×2 (08:36→19:50)
[2021-02-28 10:29] LABS: Anisocytosis Slight; HCT 26.4 % (34.0-46.0); MCH 30.4 pg (25.0-35.0); MCHC 33.8 g/dL (31.0-37.0); MCV 89.9 fL (80.0-100.0); Mean Platelet Volume 8.5; Platelet Count 115 k/uL (150-450); RBC 2.94 m/uL (3.80-5.40); RDW 16.4 % (11.5-15.5); WBC 32.7 k/uL (3.8-10.6)
[2021-02-28 10:35] LABS: HGB 8.9 gm/dL (11.4-16.0)
[2021-02-28 10:40] LABS: Calcium 7.1 mg/dL (8.4-10.2)
[2021-02-28 11:12] LABS: Lipase 1532 U/L (23-300)
[2021-02-28 11:17] LABS: Band Neutrophils % 18 %; Lymphocytes # (M) 1.64 k/uL (1.0-4.8); Metamyelocytes # (M) 0.65 k/uL (0); Metamyelocytes % 2 %; Neutrophils % (M) 75 %; Nucleated Red Blood Cells 0 /100 WBC (0-0); Poikilocytosis (M) Present; Total Cells Counted 100
[2021-02-28 11:18] LABS: Amylase 1041 U/L (30-110)
--- NOTE | 2021-02-28 11:36 | P.GSCN ---
History of Present Illness Consult date: 02/28/21 Reason for Consult: Abdominal pain History of present illness: 80-year-old female with multiple medical issues. Patient is mostly bedridden. Presents to the hospital with her caregiver. She is not able to provide any history or self. Patient has had episodes of nausea and vomiting for the last 2 days. Some abdominal discomfort per caregivers. Patient with history of chronic constipation. Came to the hospital mildly short of breath. Was found have significant leukocytosis. He underwent CT chest abdomen and pelvis. CAT scan chest shows some pulmonary infiltrates possibly on the basis of aspiration. CAT scan abdomen shows significant constipation. Upon my review there is definitely inflammatory changes around the pancreas. Gallbladder appears mildly inflamed and gallstones are seen. Amylase and lipase was added to her lab work which demonstrated both elevation of amylase and lipase. Review of Systems ROS unobtainable: due to mental status Past Medical History Past Medical History: Atrial Fibrillation, Asthma, Blood Disorder, Heart Failu re, Dementia, GERD/Reflux, Hyperlipidemia, Hypertension, Mitral Valve Prolapse (MVP), Pneumonia, Seizure Disorder, Skin Disorder, Thyroid Disorder Additional Past Medical History / Comment(s): History Parkinson's disease, dementia, mild developmental delay, schizoaffective disorder, seizure x1 2018, chronic anemia, recurrent UTIs, uses w/c with assist, hypothyroidism, moderate degree aortic stenosis w/preserved LV function, ejection fraction of 50-55%, moderate pulmonary hypertension. Wound lt buttock, homecare 3x per wk. 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 History of Any Multi-Drug Resistant Organisms: MRSA Year Discovered:: 01/20/20 MDRO Source:: MRSA BUTTOCK Past Surgical History: Joint Replacement Additional Past Surgical History / Comment(s): RIGHT HIP; ORIF OF RIGHT ELBOW (09/11/2014) - later to remove pins. Peg tube. EGD. Past Anesthesia/Blood Transfusion Reactions: No Reported Reaction Additional Past Anesthesia/Blood Transfusion Reaction / Comm: PEG TUBE HISTORY Past Psychological History: Depression, Schizophrenia Smoking Status: Former smoker Past Alcohol Use History: None Reported Past Drug Use History: None Reported - Past Family History Brother(s) Family Medical History: Seizure Disorder Additional Family Medical History / Comment(s): parkinsons Sister(s) Family Medical History: Cancer Medications and Allergies Home Medications Medication Instructions Recorded Confirmed Type Aspirin 81 mg PEG/G-TUBE DAILY@79909/09/14 02/28/21 History risperiDONE [RisperDAL] 1 mg PEG/G-TUBE BID@799,199909/09/14 02/28/21 History Atorvastatin [Lipitor] 5 mg PEG/G-TUBE MOWEFR@79906/16/18 02/28/21 History Latanoprost [Xalatan 0.005%] 1 drop BOTH EYES HS@199910/08/18 02/28/21 History Valproic Acid Oral Soln [Depakene 500 mg PEG/G-TUBE BID@799,199910/08/18 02/28/21 History Syrup] Levothyroxine Sodium [Synthroid] 175 mcg PEG/G-TUBE DAILY@59910/23/19 02/28/21 History Lactulose [Constulose] 10 gm PEG/G-TUBE DAILY@79906/09/20 02/28/21 History Montelukast Chew [Singulair chew] 5 mg PEG/G-TUBE DAILY@79906/09/20 02/28/21 History Apixaban [Eliquis] 2.5 mg PEG/G-TUBE BID@01/18/21 02/28/21 History Omeprazole [PriLOSEC] 40 mg PEG/G-TUBE DAILY@79901/18/21 02/28/21 History predniSONE 5 mg PEG/G-TUBE DAILY@79901/18/21 02/28/21 History Acetaminophen Tab [Tylenol Tab] 500 mg PO Q6H PRN 02/28/21 02/28/21 History Albuterol Nebulized [Ventolin 2.5 mg INHALATION RT-QID PRN 02/28/21 02/28/21 History Nebulized] Furosemide [Lasix] 40 mg PEG/G-TUBE DAILY@79902/28/21 02/28/21 History diphenhydrAMINE [Benadryl] 25 mg PO TID PRN 02/28/21 02/28/21 History levETIRAcetam [Keppra] 500 mg PEG/G-TUBE BID@02/28/21 02/28/21 History Allergies Allergy/AdvReac Type Severity Reaction Status Date / Time sulfamethoxazole Allergy Rash/Hives Verified 02/28/21 08:44 [From Bactrim] trimethoprim [From Bactrim] Allergy Rash/Hives Verified 02/28/21 08:44 Surgical - Exam Vital Signs Temp Pulse Resp BP Pulse Ox 97.9 F 106 H 24 81/60 96 02/28/21 00:09 02/28/21 00:09 02/28/21 00:09 02/28/21 00:09 02/28/21 00:09 Physical exam: General: Well-developed, well-nourished HEENT: Normocephalic, sclerae nonicteric Abdomen: Mild epigastric tenderness, nondistended Extremities: Mild lower extremity edema Neuro: Somewhat lethargic, noncommunicative Results - Labs 02/28/21 09:41 02/28/21 09:41 Abnormal Lab Results - Last 24 Hours (Table) 02/28/21 02/28/21 02/28/21 Range/Units 01:30 01:30 01:30 WBC 36.3 H (3.8-10.6) k/uL RBC 3.55 L (3.80-5.40) m/uL Hgb 10.4 L (11.4-16.0) gm/dL Hct 32.2 L (34.0-46.0) % RDW 15.9 H (11.5-15.5) % Plt Count 140 L D (150-450) k/uL Neutrophils # (Manual) 34.10 H (1.3-7.7) k/uL Metamyelocytes # (Man) 0.36 H (0) k/uL Sodium 130 L (137-145) mmol/L Potassium (3.5-5.1) mmol/L Chloride 83 L (98-107) mmol/L BUN 58 H (7-17) mg/dL Creatinine 1.49 H (0.52-1.04) mg/dL Glucose 54 L (74-99) mg/dL Plasma Lactic Acid Jason (0.7-2.0) mmol/L Calcium (8.4-10.2) mg/dL AST 56 H (14-36) U/L Troponin I 0.043 H* (0.000-0.034) ng/mL Total Protein 6.2 L (6.3-8.2) g/dL Albumin 3.2 L (3.5-5.0) g/dL Amylase (30-110) U/L Lipase (23-300) U/L 02/28/21 02/28/21 02/28/21 Range/Units 01:35 09:41 09:41 WBC 32.7 H (3.8-10.6) k/uL RBC 2.94 L (3.80-5.40) m/uL Hgb 8.9 L D (11.4-16.0) gm/dL Hct 26.4 L (34.0-46.0) % RDW 16.4 H (11.5-15.5) % Plt Count 115 L (150-450) k/uL Neutrophils # (Manual) 30.40 H (1.3-7.7) k/uL Metamyelocytes # (Man) 0.65 H (0) k/uL Sodium 133 L (137-145) mmol/L Potassium 3.0 L (3.5-5.1) mmol/L Chloride 96 L (98-107) mmol/L BUN 54 H (7-17) mg/dL Creatinine 1.21 H (0.52-1.04) mg/dL Glucose 70 L (74-99) mg/dL Plasma Lactic Acid Jason 4.2 H* (0.7-2.0) mmol/L Calcium 7.1 L (8.4-10.2) mg/dL AST (14-36) U/L Troponin I (0.000-0.034) ng/mL Total Protein (6.3-8.2) g/dL Albumin (3.5-5.0) g/dL Amylase (30-110) U/L Lipase (23-300) U/L 02/28/21 Range/Units 09:41 WBC (3.8-10.6) k/uL RBC (3.80-5.40) m/uL Hgb (11.4-16.0) gm/dL Hct (34.0-46.0) % RDW (11.5-15.5) % Plt Count (150-450) k/uL Neutrophils # (Manual) (1.3-7.7) k/uL Metamyelocytes # (Man) (0) k/uL Sodium (137-145) mmol/L Potassium (3.5-5.1) mmol/L Chloride (98-107) mmol/L BUN (7-17) mg/dL Creatinine (0.52-1.04) mg/dL Glucose (74-99) mg/dL Plasma Lactic Acid Jason (0.7-2.0) mmol/L Calcium (8.4-10.2) mg/dL AST (14-36) U/L Troponin I (0.000-0.034) ng/mL Total Protein (6.3-8.2) g/dL Albumin (3.5-5.0) g/dL Amylase 1041 H* (30-110) U/L Lipase 1532 H (23-300) U/L Diabetes panel 02/28/21 02/28/21 Range/Units 01:30 09:41 Sodium 130 L 133 L (137-145) mmol/L Potassium 3.6 3.0 L (3.5-5.1) mmol/L Chloride 83 L 96 L (98-107) mmol/L Carbon Dioxide 30 27 (22-30) mmol/L BUN 58 H 54 H (7-17) mg/dL Creatinine 1.49 H 1.21 H (0.52-1.04) mg/dL Glucose 54 L 70 L (74-99) mg/dL Calcium 8.4 7.1 L (8.4-10.2) mg/dL AST 56 H (14-36) U/L ALT 24 (4-34) U/L Alkaline Phosphatase 93 (38-126) U/L Total Protein 6.2 L (6.3-8.2) g/dL Albumin 3.2 L (3.5-5.0) g/dL Calcium panel 02/28/21 02/28/21 Range/Units 01:30 09:41 Calcium 8.4 7.1 L (8.4-10.2) mg/dL Albumin 3.2 L (3.5-5.0) g/dL Pituitary panel 02/28/21 02/28/21 Range/Units 01:30 09:41 Sodium 130 L 133 L (137-145) mmol/L Potassium 3.6 3.0 L (3.5-5.1) mmol/L Chloride 83 L 96 L (98-107) mmol/L Carbon Dioxide 30 27 (22-30) mmol/L BUN 58 H 54 H (7-17) mg/dL Creatinine 1.49 H 1.21 H (0.52-1.04) mg/dL Glucose 54 L 70 L (74-99) mg/dL Calcium 8.4 7.1 L (8.4-10.2) mg/dL Adrenal panel 02/28/21 02/28/21 Range/Units 01:30 09:41 Sodium 130 L 133 L (137-145) mmol/L Potassium 3.6 3.0 L (3.5-5.1) mmol/L Chloride 83 L 96 L (98-107) mmol/L Carbon Dioxide 30 27 (22-30) mmol/L BUN 58 H 54 H (7-17) mg/dL Creatinine 1.49 H 1.21 H (0.52-1.04) mg/dL Glucose 54 L 70 L (74-99) mg/dL Calcium 8.4 7.1 L (8.4-10.2) mg/dL Total Bilirubin 0.5 (0.2-1.3) mg/dL AST 56 H (14-36) U/L ALT 24 (4-34) U/L Alkaline Phosphatase 93 (38-126) U/L Total Protein 6.2 L (6.3-8.2) g/dL Albumin 3.2 L (3.5-5.0) g/dL Assessment and Plan (1) Gallstone pancreatitis Narrative/Plan: 80-year-old female with epigastric pain and nausea and vomiting. CAT scan shows pancreatitis. Suspect biliary etiology. Keep nothing by mouth. Check abdominal ultrasound. Continue antibiotics. Will follow. Current Visit: Yes Status: Acute Code(s): K85.10 - BILIARY ACUTE PANCREATITIS WITHOUT NECROSIS OR INFECTION SNOMED Code(s): 98839563
--- NOTE | 2021-02-28 12:25 | US ---
EXAMINATION TYPE: US abdomen limited DATE OF EXAM: 02/28/2021 COMPARISON: CT 02/28/2021 CLINICAL HISTORY: Gallstone pancreatitis EXAM MEASUREMENTS: Liver Length: 14.9 cm Gallbladder Wall: 0.2 cm CBD: 0.4 cm Right Kidney: 10.9 x 4.3 x 5.5 cm Pancreas: Obscured by bowel gas Liver: limited evaluation to intercostal window, left lobe not seen. Gallbladder: No stones seen, phrygian cap noted, only imaged in supine position. Evidence for sonographic Benavides's sign: non commicative patient CBD: wnl Right Kidney: No hydronephrosis or masses seen Extremely limited exam, patient is noncommunicative and unable to cooperate for exam. IMPRESSION: No significant abnormality seen but the exam is extremely limited secondary to the patien t's condition.
[2021-02-28] MEDS ORDERED: IPRATROPIUM-ALBUTEROL 3 ML NEB INHALATION PRN (14:42)
[2021-02-28] MEDS ORDERED: Potassium Replacement Protocol 1 EACH MISC MISCELLANE PRN (14:43)
[2021-02-28] MEDS ORDERED: Magnesium Replacement Protocol 1 EACH MISC MISCELLANE PRN (14:43)
[2021-02-28] MEDS ORDERED: MEROPENEM 1 GM in SODIUM CHLORIDE 0.9% 100 ML IVPB SCH (16:00)
[2021-02-28 16:22] LABS: Calcium 7.5 mg/dL (8.4-10.2); Potassium 3.2 mmol/L (3.5-5.1)
[2021-02-28 16:47] LABS: Anisocytosis Slight; Basophils # (A) 0.1 k/uL (0-0.2); Basophils % (A) 1 %; Eosinophils # (A) 0.1 k/uL (0-0.7); Eosinophils % (A) 0 %; HCT 30.2 % (34.0-46.0); HGB 9.6 gm/dL (11.4-16.0); Hypochromasia Slight; Lymphocytes % (A) 4 %; MCHC 31.8 g/dL (31.0-37.0); MCV 94.3 fL (80.0-100.0); Mean Platelet Volume 9.5; Monocytes # (A) 0.6 k/uL (0-1.0); Monocytes % (A) 3 %; Neutrophils # (A) 22.7 k/uL (1.3-7.7); Neutrophils % (A) 92 %; RBC 3.21 m/uL (3.80-5.40); WBC 24.6 k/uL (3.8-10.6)
[2021-02-28 16:49] LABS: Platelet Count 86 k/uL (150-450)
--- NOTE | 2021-02-28 17:33 | HP ---
HISTORY AND PHYSICAL DATE OF SERVICE: 02/28/2021. CHIEF COMPLAINTS: Vomiting and abdominal distention. HISTORY OF PRESENT ILLNESS: This 80-year-old woman with a past medical history of atrial fibrillation, asthma, CHF, dementia, GERD, hypertension, hyperlipidemia, mitral valve prolapse, seizure disorder hypothyroidism, history of Parkinson's disease, being followed by Dr. Ruff in the outpatient setting was living in an assisted-living facility. The patient has got a caregiver. The patient is unable to give a coherent history. Patient is also mentally challenged. Most of the history is taken from my discussion with staff and review of the chart at this time. The patient apparently came to the ER with abdominal distention and multiple episodes of vomiting. The patient also has development delay. The patient answers simple questions. Evaluation in the ER showed evidence of acute pancreatitis and abdominal ultrasound showed no significant abnormalities. Surgery, Dr. Long, has seen the patient and CT scan showed pulmonary infiltrate aspiration and pancreatitis, and gallstones also seen. Gallstone pancreatitis was suspected and the patient was admitted for further evaluation and treatment. A chest x-ray, which was reviewed personally by me, showed bilateral lesions also. There is no history of trauma. No history of fever. PAST MEDICAL HISTORY: History of development delay, history atrial of fibrillation, asthma, dementia, GERD, hypertension, hyperlipidemia, multiple other medical problems. MEDICATIONS: Home medications are reviewed and include Benadryl, Tylenol, Keppra, Xalatan, Risperdal, Depakene, prednisone, Prilosec, Singulair, Synthroid, lactulose, Lasix, Eliquis, Lipitor, aspirin. Doses are reviewed. ALLERGIES: BACTRIM. Family history, social history, review of systems could not be taken because of baseline mental status. Family history of seizure disorder and Parkinson's per chart. PHYSICAL EXAMINATION: Patient is stuporous, barely arousable. Pulse 80, blood pressure 121/58, respiration 20, temperature normal, pulse ox 98% on 4 L. HEENT: Conjunctivae normal. Oral mucosa moist. NECK: No jugular venous distention. No carotid bruit. No lymph node enlargement. CARDIOVASCULAR: S1, S2 muffled. RESPIRATION: Breath sounds diminished at the bases. A few scattered rhonchi. ABDOMEN: Soft. Mild diffuse distention. Mild diffuse discomfort. Otherwise no guarding, no rigidity. No mass palpable. LEGS: No edema. No swelling. NERVOUS SYSTEM: Diffusely weak. SKIN: No ulcer, rash, bleeding. JOINTS: No active deforming arthropathy. LYMPHATICS: No lymph node palpable in neck, axillae or groin. LABS: WBC 36.6, hemoglobin 10.4. Sodium NTD, potassium 3.6, creatinine 1.49. Troponin 0.043. ASSESSMENT: 1. Acute abdominal pain with possible acute gallstone pancreatitis. 2. Acute bilateral aspiration pneumonia with sepsis, present on admission. 3. Change in mental status, acute on chronic metabolic encephalopathy. 4. Increased white count. 5. Anemia, normocytic. 6. Thrombocytopenia. 7. Hyponatremia. 8. Increased creatinine with acute renal failure, acute tubular necrosis and prerenal renal failure. 9. Hypoglycemia. 10.Elevated lactic acid, possibly secondary to sepsis. 11.Troponin 0.043, indeterminate. 12.Mentally challenged. 13.Atrial fibrillation. 14.History of asthma. 15.History of congestive heart failure. 16.Dementia. 17.Gastroesophageal reflux disease. 18.Hypertension. 19.Hyperlipidemia. 20.History of mitral valve prolapse. 21.History of pneumonia. 22.Seizure disorder. 23.Hypothyroidism. 24.History of Parkinson's. 25.History of dementia. 26.History of developmental delay. 27.History of schizoaffective disorder. 28.History of seizure disorder. 29.History of recurrent urinary tract infection. 30.Hypothyroidism. 31.History of moderate degree of aortic stenosis with preserved left ventricular function, ejection fraction 50% to 55%. 32.Moderate pulmonary hypertension. 33.History of PEG tube. 34.History of collapsed esophagus. 35.History of MRSA. 36.Degenerative joint disease. 37.History of depression, schizophrenia, mentally challenged. 38.Remote history of nicotine dependence. RECOMMENDATIONS AND DISCUSSION: In this 80-year-old woman who presented with multiple complex medical issues, we will monitor the patient closely. I would initiate broad-spectrum IV antibiotics. Otherwise, obtain the cultures. Bronchodilators. Repeat labs. Keep n.p.o. at this time. Cautious fluid administration. Overall prognosis extremely guarded because of the multiple complex medical issues, as listed above. The patient has features of severe pancreatitis and sepsis. Prognosis guarded. DVT prophylaxis. See orders for further details. Further recommendations to follow. A copy of this dictation is being forwarded to Dr. Ruff, who is the primary physician. MMODL / IJN: [id number] / UNA
[2021-02-28] MEDS ORDERED: PIPERACILLIN-TAZOBACTAM 3.375 GM in SODIUM CHLORIDE 0.9% 100 ML IVPB STA (18:03)
[2021-02-28] MEDS: PANTOPRAZOLE 40 MG/10 ML VIAL IVP SCH ×2 (19:33→21:11)
[2021-02-28] MEDS: SODIUM CHLORIDE 0.9% 1,000 ML IV SCH (19:34)
[2021-02-28] MEDS: IPRATROPIUM-ALBUTEROL 3 ML NEB INHALATION SCH (20:03)
[2021-02-28] MEDS: risperiDONE 1 MG TAB PEG/G-TUBE SCH (22:54)
[2021-02-28] MEDS: APIXABAN 2.5 MG TABLET PEG/G-TUBE SCH (22:54)
[2021-02-28] MEDS: VALPROIC ACID ORAL SOLN 250 MG/5 ML CUP PEG/G-TUBE SCH (22:55)
[2021-02-28] MEDS: levETIRAcetam 500 MG TAB PEG/G-TUBE SCH (22:55)
[2021-02-28] MEDS: LATANOPROST 0.005% OPHTH DROPS 2.5 ML BTL BOTH EYES SCH (22:56)
[2021-03-01] MEDS ORDERED: PIPERACILLIN-TAZOBACTAM 3.375 GM in SODIUM CHLORIDE 0.9% 100 ML IVPB SCH ×2
[2021-03-01] MEDS: metroNIDAZOLE-NS PMX 500 MG in SALINE 1 100ML.BAG IVPB SCH ×3 (02:22→18:17)
[2021-03-01 05:19] LABS: Albumin 2.6 g/dL (3.5-5.0); Calcium 7.9 mg/dL (8.4-10.2); Magnesium 1.7 mg/dL (1.6-2.3); Potassium 3.2 mmol/L (3.5-5.1); Total Bilirubin 0.6 mg/dL (0.2-1.3); Total Protein 5.5 g/dL (6.3-8.2)
[2021-03-01 05:42] LABS: Anisocytosis Slight; HCT 28.1 % (34.0-46.0); MCH 29.8 pg (25.0-35.0); MCHC 31.9 g/dL (31.0-37.0); MCV 93.3 fL (80.0-100.0); Mean Platelet Volume 9.9; RBC 3.01 m/uL (3.80-5.40); RDW 16.1 % (11.5-15.5); WBC 26.6 k/uL (3.8-10.6)
[2021-03-01 05:43] LABS: Platelet Count 81 k/uL (150-450)
[2021-03-01] MEDS: PIPERACILLIN-TAZOBACTAM 3.375 GM in SODIUM CHLORIDE 0.9% 100 ML IVPB SCH ×3 (05:52→21:12)
[2021-03-01 06:10] LABS: Band Neutrophils % 14 %; Eosinophils # (M) 0.27 k/uL (0-0.7); Lymphocytes # (M) 2.66 k/uL (1.0-4.8); Metamyelocytes # (M) 0.53 k/uL (0); Metamyelocytes % 2 %; Neutrophils % (M) 71 %; Nucleated Red Blood Cells 0 /100 WBC (0-0); Total Cells Counted 200
[2021-03-01 06:12] LABS: Poikilocytosis (M) Present
[2021-03-01] MEDS ORDERED: FUROSEMIDE 40 MG TAB PEG/G-TUBE SCH (08:00)
[2021-03-01] MEDS: IPRATROPIUM-ALBUTEROL 3 ML NEB INHALATION SCH ×3 (08:56→21:24)
[2021-03-01] MEDS ORDERED: AZITHROMYCIN 500 MG in SODIUM CHLORIDE 0.9% 250 ML IVPB SCH (09:00)
[2021-03-01] MEDS: APIXABAN 2.5 MG TABLET PEG/G-TUBE SCH ×2 (10:35→21:11)
[2021-03-01] MEDS: LEVOTHYROXINE 100 MCG TAB PEG/G-TUBE SCH (10:35)
[2021-03-01] MEDS: levETIRAcetam 500 MG TAB PEG/G-TUBE SCH ×2 (10:35→21:11)
[2021-03-01] MEDS: PANTOPRAZOLE 40 MG/10 ML VIAL IVP SCH ×2 (10:35→21:12)
[2021-03-01] MEDS: LEVOTHYROXINE 75 MCG TAB PEG/G-TUBE SCH (10:35)
[2021-03-01] MEDS: risperiDONE 1 MG TAB PEG/G-TUBE SCH ×2 (10:35→21:19)
[2021-03-01] MEDS: VALPROIC ACID ORAL SOLN 250 MG/5 ML CUP PEG/G-TUBE SCH (10:35)
[2021-03-01] MEDS ORDERED: LACTULOSE 20 GM/30 ML CUP PEG/G-TUBE ONE (10:58)
--- NOTE | 2021-03-01 11:33 | P.PN ---
Subjective 80-year-old the female came in for coffee-ground emesis and upper GI bleed which resolved at this time patient is on Protonix. Patient does have leukocytosis and patient is also being treated for pneumonia although there is no evidence of pneumonia on the computed tomography scan, I reviewed the computed tomography scan which showed infiltrate in bilateral lower lung huynh which appears to be atelectasis patient does have highly elevated white blood cell count of 34,000 without any fever etiology of this white blood cell count is not clear this did improve with IV antibiotics that is Zosyn for now until a we find the source off infection if at all any will continued antibiotic patient lipase was also elevated and cannot get any history from the patient. Unsure whether patient had pancreatitis. Ultrasound of the abdomen did not show any gallstone. Patient is hyponatremic and aspirin were replaced patient is receiving Lasix as well as IV fluids Lasix will be discontinued. Patient had acute renal failure which improved at this time. His no evidence of congestive heart failure at this time. REVIEW OF SYSTEMS: Unable to obtain due to her clinical condition PHYSICAL EXAMINATION: GENERAL: Patient is sleeping unable to answer any medical insurance arousable probably has some chronic contractures HEENT: Pupils are round and equally reacting to light. EOMI. No scleral icterus. No conjunctival pallor. Normocephalic, atraumatic. No pharyngeal erythema. No thyromegaly. CARDIOVASCULAR: S1 and S2 present. No murmurs, rubs, or gallops. PULMONARY: Chest is clear to auscultation, no wheezing or crackles. ABDOMEN: Soft, nontender tube and NG tube in place an NG tube is still draining MUSCULOSKELETAL: No joint swelling or deformity. EXTREMITIES: No cyanosis, clubbing, or pedal edema. NEUROLOGICAL: Patient is not following commands unable to assess. SKIN: No rashes. Assessment and plan -Acute upper GI bleed probably peptic ulcer disease patient will be continued on Protonix -Possibly a pancreatitis etiology is not clear no gallstone on the ultrasound -Leukocytosis may be secondary to upper GI bleed or pancreatitis so far I didn't see any evidence of infection no evidence of pneumonia at this time -Atelectasis bilateral -Hypervolemic hyponatremia improved with IV fluids -Acute renal failure prerenal azotemia secondary to intravascular depletion and dehydration improved with IV fluids -Lactic acidosis secondary to intravascular depletion no clear evidence of sepsis at this time -History of atrial fibrillation -Dementia -Hypertension -Hyperlipidemia -Seizure disorder for which patient is on antiseizure medications which are not being given as patient is nothing by mouth we'll coordinate give her this medications via PEG tube -Hypothyroidism -Schizoaffective disorder -Hypokalemia natriuretic hypokalemia, potassium will be replaced DVT prophylaxis: SCDs Objective - Vital Signs Vital signs: Vital Signs Temp 97.9 F 02/28/21 00:09 Pulse 87 03/01/21 10:32 Resp 22 03/01/21 10:32 BP 113/74 03/01/21 10:32 Pulse Ox 95 03/01/21 10:32 - Labs CBC & Chem 7: 03/01/21 04:34 03/01/21 04:34 Labs: Abnormal Lab Results - Last 24 Hours (Table) 02/28/21 02/28/21 03/01/21 Range/Units 15:57 15:57 04:34 WBC 24.6 H 26.6 H (3.8-10.6) k/uL RBC 3.21 L 3.01 L (3.80-5.40) m/uL Hgb 9.6 L 9.0 L (11.4-16.0) gm/dL Hct 30.2 L 28.1 L (34.0-46.0) % RDW 16.0 H 16.1 H (11.5-15.5) % Plt Count 86 L 81 L (150-450) k/uL Neutrophils # 22.7 H (1.3-7.7) k/uL Neutrophils # (Manual) 22.60 H (1.3-7.7) k/uL Metamyelocytes # (Man) 0.53 H (0) k/uL Sodium 135 L (137-145) mmol/L Potassium 3.2 L (3.5-5.1) mmol/L Chloride 95 L (98-107) mmol/L BUN 53 H (7-17) mg/dL Creatinine 1.11 H (0.52-1.04) mg/dL Glucose 65 L (74-99) mg/dL Calcium 7.5 L (8.4-10.2) mg/dL AST (14-36) U/L Total Protein (6.3-8.2) g/dL Albumin (3.5-5.0) g/dL Amylase 746 H* (30-110) U/L Lipase 948 H (23-300) U/L 03/01/21 Range/Units 04:34 WBC (3.8-10.6) k/uL RBC (3.80-5.40) m/uL Hgb (11.4-16.0) gm/dL Hct (34.0-46.0) % RDW (11.5-15.5) % Plt Count (150-450) k/uL Neutrophils # (1.3-7.7) k/uL Neutrophils # (Manual) (1.3-7.7) k/uL Metamyelocytes # (Man) (0) k/uL Sodium (137-145) mmol/L Potassium 3.2 L (3.5-5.1) mmol/L Chloride (98-107) mmol/L BUN 44 H (7-17) mg/dL Creatinine (0.52-1.04) mg/dL Glucose 53 L (74-99) mg/dL Calcium 7.9 L (8.4-10.2) mg/dL AST 60 H (14-36) U/L Total Protein 5.5 L (6.3-8.2) g/dL Albumin 2.6 L (3.5-5.0) g/dL Amylase (30-110) U/L Lipase 415 H (23-300) U/L
[2021-03-01 12:05] LABS: Glucose,Whole Blood 84 mg/dL (75-99)
[2021-03-01 12:20] LABS: Glucose,Whole Blood 75 mg/dL (75-99)
[2021-03-01] MEDS ORDERED: SODIUM CHLORIDE 0.9% 1,000 ML IV ONE (12:39)
--- NOTE | 2021-03-01 12:44 | P.PN ---
<ManuelsaurabhChar - Last Filed: 03/01/21 12:28> Subjective Progress Note Date: 03/01/21 CHIEF COMPLAINT: Abdominal pain HISTORY OF PRESENT ILLNESS: This is a 80-year-old female presented with abdominal pain and evidence of gallstone stone pancreatitis. She had been having nausea and vomiting. She was found have elevated lipase and amylase. There were gallstones evident on CAT scan as well as constipation. Patient c urrently lying in bed with NG tube in place. Appears there is also concern for possible coffee ground emesis on admission, which now has resolved. Her abdominal ultrasound had showed no evidence of gallstones. But her exam is extremely limited secondary to patient's condition. Afebrile. WBC is 26.6 hemoglobin is 9.0 platelets 81 sodium 138 potassium 3.2 creatinine 0.78 total bili 0.6 AST 60 ALT 23 alk phos 98 lipase is down to 415. Gastric occult blood positive COVID-19 not detected PHYSICAL EXAM: VITAL SIGNS: Reviewed GENERAL: Well-developed in no acute distress. HEENT: No sclera icterus. Extraocular movements grossly intact. Moist buccal mucosa. Head is atraumatic, normocephalic. Hears conversational speech. No nasal drainage. NECK: Supple without lymphadenopathy. CHEST: Non-labored respirations and equal bilateral excursions. CARDIOVASCULAR: Palpable 2+ radial pulses. ABDOMEN: Soft. Nondistended. MUSCULOSKELETAL: No clubbing or cyanosis. NEUROLOGIC: No focal or lateralizing signs. Cranial nerves II through XII grossly intact. PSYCH: Appropriate affect. Alert and oriented to person, place and time. SKIN: Well perfused. Good skin turgor. ASSESSMENT: 1. Gallstone pancreatitis 2. Constipation 3. Developmental delay 4. Hypokalemia 5. Episode of coffee-ground emesis prior to admission PLAN: -Recommend conservative management -No surgical intervention planned -Continue antibiotics -Soap lisette enemas and lactulose ordered for constipation -Discontinue NG tube -Continue PPI Physician Manufacturing Lab Technician note has been reviewed by physician. Signing provider agrees with the documented findings, assessment, and plan of care. Objective - Vital Signs Vital signs: Vital Signs Temp 97.9 F 02/28/21 00:09 Pulse 76 03/01/21 12:24 Resp 18 03/01/21 12:18 BP 81/38 03/01/21 12:18 Pulse Ox 91 L 03/01/21 12:18 - Labs CBC & Chem 7: 03/01/21 04:34 03/01/21 04:34 Labs: Abnormal Lab Results - Last 24 Hours (Table) 02/28/21 02/28/21 03/01/21 Range/Units 15:57 15:57 04:34 WBC 24.6 H 26.6 H (3.8-10.6) k/uL RBC 3.21 L 3.01 L (3.80-5.40) m/uL Hgb 9.6 L 9.0 L (11.4-16.0) gm/dL Hct 30.2 L 28.1 L (34.0-46.0) % RDW 16.0 H 16.1 H (11.5-15.5) % Plt Count 86 L 81 L (150-450) k/uL Neutrophils # 22.7 H (1.3-7.7) k/uL Neutrophils # (Manual) 22.60 H (1.3-7.7) k/uL Metamyelocytes # (Man) 0.53 H (0) k/uL Sodium 135 L (137-145) mmol/L Potassium 3.2 L (3.5-5.1) mmol/L Chloride 95 L (98-107) mmol/L BUN 53 H (7-17) mg/dL Creatinine 1.11 H (0.52-1.04) mg/dL Glucose 65 L (74-99) mg/dL Calcium 7.5 L (8.4-10.2) mg/dL AST (14-36) U/L Total Protein (6.3-8.2) g/dL Albumin (3.5-5.0) g/dL Amylase 746 H* (30-110) U/L Lipase 948 H (23-300) U/L 03/01/21 Range/Units 04:34 WBC (3.8-10.6) k/uL RBC (3.80-5.40) m/uL Hgb (11.4-16.0) gm/dL Hct (34.0-46.0) % RDW (11.5-15.5) % Plt Count (150-450) k/uL Neutrophils # (1.3-7.7) k/uL Neutrophils # (Manual) (1.3-7.7) k/uL Metamyelocytes # (Man) (0) k/uL Sodium (137-145) mmol/L Potassium 3.2 L (3.5-5.1) mmol/L Chloride (98-107) mmol/L BUN 44 H (7-17) mg/dL Creatinine (0.52-1.04) mg/dL Glucose 53 L (74-99) mg/dL Calcium 7.9 L (8.4-10.2) mg/dL AST 60 H (14-36) U/L Total Protein 5.5 L (6.3-8.2) g/dL Albumin 2.6 L (3.5-5.0) g/dL Amylase (30-110) U/L Lipase 415 H (23-300) U/L <Milagros Mayberry N - Last Filed: 03/06/21 19:45> Subjective CHIEF COMPLAINT: Abdominal distention HISTORY OF PRESENT ILLNESS: The patient is a 80-year-old female admitted multiple episodes of emesis, abdominal distention. Overall patient is nonverbal. Patient was brought in due to abdominal distention and worsening presentation. Patient did present with elevated lipase including amylase for clinical pancreatitis. Imaging is questionable for gallstones and abdominal distention. NG tube is present. ROS: No fevers or chills. No acute chest pain. PHYSICAL EXAM: VITAL SIGNS: Reviewed CONSTITUTIONAL: Well developed and in no acute distress. EYES: Conjuctivae without sclera icterus. Extraocular movements grossly intact. HEAD, EARS, NOSE, THROAT: Moist buccal mucosa. Head is atraumatic, normocephalic. NG tube present. NECK: No gross thyroidomegaly. No jugular venous distention. RESPIRATORY: Non-labored respirations and equal bilateral excursions. CARDIOVASCULAR: Palpable 2+ radial pulses. ABDOMEN: Distention with PEG tube intact. MUSCULOSKELETAL: No gross deformity of the lower extremities noted. No clubbing. No cyanosis. SKIN: Good skin turgor. Well perfused. NEUROLOGIC: Cranial nerves II through XII grossly intact. Lethargic. PSYCH: Appropriate affect. Alert and oriented to person, place and time. CLINICAL LABS: White blood cell presentation over 36,000. Amylase and lipase on admission over 1000 respectively. STUDIES: CT of the abdomen and pelvis and the pedicle reviewed demonstrating no small bowel or stomach distention. Large bowel distention with retained feces along the ascending colon cecum and proximal transverse colon. Descending colon unremarkable. Ultrasound of the gallbladder reviewed without large gallstones or gallbladder wall thickening. REPORT: Chest x-ray reviewed with features of interstitial edema and congestive heart failure. ASSESSMENT: 1. Sepsis on presentation 2. Hypertensive heart disease with congestive heart failure 3. Generalized debility 4. Abdominal distention PLAN: 1. IV antibiotics for presentation of sepsis. 2. Images not consistent with gastric distention or small bowel distention. Recommend lactulose and laxatives for ascending colon retained stool. 3. Patient is in the ICU with generalized debility and condition is guarded. 4. May discontinue NG tube Objective - Vital Signs Vital signs: Vital Signs Temp 97.5 F L 03/05/21 08:00 Pulse 73 03/05/21 11:00 Resp 28 H 03/05/21 11:00 BP 101/74 03/05/21 11:00 Pulse Ox 83 L 03/05/21 11:00 - Labs CBC & Chem 7: 03/05/21 04:05 03/05/21 04:05 Labs: Microbiology - Last 24 Hours (Table) 02/28/21 15:57 Blood Culture - Final Blood No Growth after 144 hours Assessment and Plan (1) Pancreatitis Status: Acute Code(s): K85.90 - ACUTE PANCREATITIS WITHOUT NECROSIS OR INFECTION, UNSP SNOMED Code(s): 28142247 (2) Abdominal distension Status: Acute Code(s): R14.0 - ABDOMINAL DISTENSION (GASEOUS) SNOMED Code(s): 56390658 (3) Constipation Status: Acute Code(s): K59.00 - CONSTIPATION, UNSPECIFIED SNOMED Code(s): 17842416 (4) Dysphagia Status: Acute Code(s): R13.10 - DYSPHAGIA, UNSPECIFIED SNOMED Code(s): 96979060
[2021-03-01] MEDS: SODIUM CHLORIDE 0.9% 1,000 ML IV SCH (12:45)
[2021-03-01] MEDS: POTASSIUM CHLORIDE 10 MEQ in WATER FOR INJECTION 1 100ML.BAG IVPB SCH ×6 (12:45→21:10)
--- NOTE | 2021-03-01 14:39 | XR ---
EXAMINATION TYPE: XR chest 1V DATE OF EXAM: 03/01/2021 COMPARISON: 02/28/2021 INDICATION: Short of breath TECHNIQUE: Single frontal view of the chest is obtained. FINDINGS: The heart size is normal. The pulmonary vasculature is normal. Bibasilar infiltrates are present. Small bilateral pleural effusions are likely present. Nasogastric tube transverses the thorax. IMPRESSION: 1. Small bilateral pleural effusions with bibasilar infiltrates. Correlate for atelectasis or pneumon ia. Findings are similar to comparison.
[2021-03-01] MEDS: VALPROATE SODIUM 500 MG in SODIUM CHLORIDE 0.9% 100 ML IVPB SCH (15:35)
--- NOTE | 2021-03-01 15:35 | P.CNPUL ---
History of Present Illness Consult date: 03/01/21 Reason for consult: dyspnea History of present illness: 80-year-old female patient who is known to me from previous admissions, was recently discharged from the hospital to be readmitted back through emergency department yesterday because of emesis and abdominal distention. Noted the patient is known to have developmental delay and she cannot volunteer any history. 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 She is unable to volunteer any history. She came into the ED because of abdominal distention and multiple episodes of emesis. She was initially interacting and she was very much answering some simple questions. Further investigation was done in the emergency department and this included blood work that showed a white cell count of 32.7 with a hemoglobin of 8.9 and a platelet count of 115. The patient also had a creatinine of 1.2 consistent with an acute kidney injury in the sodium level of 133 and a potassium level of 3.0, initial amylase level was 1041 and the lipase level was 1532. The patient had a computed tomography scan of the abdomen that showed bibasilar pulmonary atelectatic changes, cholelithiasis with mildly dilated of the gallbladder and there was constipation without any free air within the abdomen. Note that her LFTs was also normal with a alkaline phosphatase of 98 with a AST of 60, ALT of 23 and a bilirubin of 0.6. We will consulted to evaluate this patient knowing that the patient became also hypoxic where she was initially placed on 40 to about 2 by nasal cannula and oxygen requirements gradually went up and currently she is on 15 L of oxygen by nasal cannula with a pulse ox of 92%. Her temperature is 97.7 with a blood pressure of 97/68. Her lowest blood pressure was 70/62. The patient was started on IV Zosyn and Flagyl. The patient is currently on normal saline at rate of 50 mL an hour. Gen. surgical consultation was obtained and the patient was seen by Dr. power. The patient was given lactulose as laxatives. The patient was kept nothing by mouth. Ultrasound the gallbladder was also obtained. Recommendation was to continue the antibiotics. No immediate surgical intervention. No observed aspiration. Nursing staff. Chest echo shows symmetric changes in lung bases bilaterally. Patient has an NG tube in place. The patient also has a PEG tube for enteral feeding for nutritional support. PEG tube is currently dependent drainage. No seizure activity has been noted. Review of Systems ROS unobtainable: due to mental status Past Medical History Past Medical History: Atrial Fibrillation, Asthma, Blood Disorder, Heart Failure, Dementia, GERD/Reflux, Hyperlipidemia, Hypertension, Mitral Valve Prolapse (MVP), Pneumonia, Seizure Disorder, Skin Disorder, Thyroid Disorder Additional Past Medical History / Comment(s): History Parkinson's disease, dementia, mild developmental delay, schizoaffective disorder, seizure x1 2018, chronic anemia, recurrent UTIs, uses w/c with assist, hypothyroidism, moderate degree aortic stenosis w/preserved LV function, ejection fraction of 50-55%, moderate pulmonary hypertension. Wound lt buttock, homecare 3x per wk. 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 History of Any Multi-Drug Resistant Organisms: MRSA Date of last positivie culture/infection: 01/20/20 MDRO Source:: MRSA BUTTOCK Past Surgical History: Joint Replacement Additional Past Surgical History / Comment(s): RIGHT HIP; ORIF OF RIGHT ELBOW (09/11/2014) - later to remove pins. Peg tube. EGD. Past Anesthesia/Blood Transfusion Reactions: No Reported Reaction Additional Past Anesthesia/Blood Transfusion Reaction / Comment(s): PEG TUBE HI STORY Past Psychological History: Depression, Schizophrenia Smoking Status: Former smoker Past Alcohol Use History: None Reported Past Drug Use History: None Reported - Past Family History Brother(s) Family Medical History: Seizure Disorder Additional Family Medical History / Comment(s): parkinsons Sister(s) Family Medical History: Cancer Medications and Allergies Home Medications Medication Instructions Recorded Confirmed Type Aspirin 81 mg PEG/G-TUBE DAILY@0800 09/09/14 02/28/21 History risperiDONE [RisperDAL] 1 mg PEG/G-TUBE BID@0800,199909/09/14 02/28/21 History Atorvastatin [Lipitor] 5 mg PEG/G-TUBE MOWEFR@0800 06/16/18 02/28/21 History Latanoprost [Xalatan 0.005%] 1 drop BOTH EYES HS@199910/08/18 02/28/21 History Valproic Acid Oral Soln [Depakene 500 mg PEG/G-TUBE BID@0800,199910/08/18 02/28/21 History Syrup] Levothyroxine Sodium [Synthroid] 175 mcg PEG/G-TUBE DAILY@59910/23/19 02/28/21 History Lactulose [Constulose] 10 gm PEG/G-TUBE DAILY@79906/09/20 02/28/21 History Montelukast Chew [Singulair chew] 5 mg PEG/G-TUBE DAILY@79906/09/20 02/28/21 History Apixaban [Eliquis] 2.5 mg PEG/G-TUBE BID@01/18/21 02/28/21 History Omeprazole [PriLOSEC] 40 mg PEG/G-TUBE DAILY@79901/18/21 02/28/21 History predniSONE 5 mg PEG/G-TUBE DAILY@79901/18/21 02/28/21 History Acetaminophen Tab [Tylenol Tab] 500 mg PO Q6H PRN 02/28/21 02/28/21 History Albuterol Nebulized [Ventolin 2.5 mg INHALATION RT-QID PRN 02/28/21 02/28/21 History Nebulized] Furosemide [Lasix] 40 mg PEG/G-TUBE DAILY@79902/28/21 02/28/21 History diphenhydrAMINE [Benadryl] 25 mg PO TID PRN 02/28/21 02/28/21 History levETIRAcetam [Keppra] 500 mg PEG/G-TUBE BID@799,199902/28/21 02/28/21 History Allergies Allergy/AdvReac Type Severity Reaction Status Date / Time sulfamethoxazole Allergy Rash/Hives Verified 02/28/21 08:44 [From Bactrim] trimethoprim [From Bactrim] Allergy Rash/Hives Verified 02/28/21 08:44 Physical Exam Vitals: Vital Signs Temp Pulse Resp BP Pulse Ox 03/01/21 14:59 97.7 F 85 22 97/68 92 L 03/01/21 14:43 89 22 106/56 93 L 03/01/21 14:11 87 24 77/51 84 L 03/01/21 13:10 87 18 73/62 94 L 03/01/21 12:46 75 18 70/48 92 L 03/01/21 12:24 76 03/01/21 12:18 76 18 81/38 91 L 03/01/21 12:15 89 03/01/21 10:32 87 22 113/74 95 03/01/21 09:07 88 03/01/21 08:56 93 03/01/21 06:00 87 18 123/64 95 02/28/21 23:10 20 111/51 96 02/28/21 21:23 92 20 115/56 95 02/28/21 20:15 94 02/28/21 20:04 83 02/28/21 17:55 92 20 110/61 02/28/21 16:47 89 20 99/45 94 L Intake and Output 03/01/21 03/01/21 03/01/21 06:59 14:59 22:59 Output Total 100 Balance -100 Output: Urine 100 Uretheral (Brunson) 100 Calm and comfortable, the patient is resting , very lethargic yet arousable. She is currently on 100% on a NRB facemask. Head exam was generally normal. There was no scleral icterus or corneal arcus. Mucous membranes were moist. Neck was supple and without jugular venous distension, thyromegaly, or carotid bruits. Carotids were easily palpable bilaterally. There was no adenopathy. Orogastric and aortic tube are both in place. Lungs are diminished and the patient is on obvious thoracic and thoracolumbar kyphoscoliosis with cervical kyphosis. Rest of the equal and symmetrical. No wheezes or rhonchi. Cardiac exam revealed the PMI to be normally situated and sized. The rhythm was regular and no extrasystoles were noted during several minutes of auscultation. The first and second heart sounds were normal and physiologic splitting of the second heart sound was noted. There were systolic ejection murmur consistent with aortic stenosis , rubs, clicks, or gallops. Abdominal exam revealed normal bowel sounds. The abdomen was soft, non-tender, and without masses, however is slightly distended and the bowel sounds are hypoactive, organomegaly, or appreciable enlargement of the abdominal aorta. The patient is a PEG tube in place and the PEG tube site is dry clean and intact and there is no direct tenderness or rebound tensile guarding. Bowel sounds are hypoactive at the present Examination of the extremities revealed easily palpable radial, femoral and ped al pulses. There was no cyanosis, clubbing or edema. Examination of the skin revealed no evidence of significant rashes, suspicious appearing nevi or other concerning lesions. 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 Neurologically the patient is following some simple commands. No focal neurological deficit. Results - Laboratory Findings CBC and BMP: 03/01/21 04:34 03/01/21 04:34 Abnormal lab findings: Abnormal Labs 02/28/21 02/28/21 02/28/21 01:30 01:30 01:30 WBC 36.3 H RBC 3.55 L Hgb 10.4 L Hct 32.2 L RDW 15.9 H Plt Count 140 L D Neutrophils # Neutrophils # (Manual) 34.10 H Metamyelocytes # (Man) 0.36 H Sodium 130 L Potassium Chloride 83 L BUN 58 H Creatinine 1.49 H Glucose 54 L Plasma Lactic Acid Jason Calcium AST 56 H Troponin I 0.043 H* Total Protein 6.2 L Albumin 3.2 L Amylase Lipase 02/28/21 02/28/21 02/28/21 01:35 09:41 09:41 WBC 32.7 H RBC 2.94 L Hgb 8.9 L D Hct 26.4 L RDW 16.4 H Plt Count 115 L Neutrophils # Neutrophils # (Manual) 30.40 H Metamyelocytes # (Man) 0.65 H Sodium 133 L Potassium 3.0 L Chloride 96 L BUN 54 H Creatinine 1.21 H Glucose 70 L Plasma Lactic Acid Jason 4.2 H* Calcium 7.1 L AST Troponin I Total Protein Albumin Amylase Lipase 02/28/21 02/28/21 02/28/21 09:41 15:57 15:57 WBC 24.6 H RBC 3.21 L Hgb 9.6 L Hct 30.2 L RDW 16.0 H Plt Count 86 L Neutrophils # 22.7 H Neutrophils # (Manual) Metamyelocytes # (Man) Sodium 135 L Potassium 3.2 L Chloride 95 L BUN 53 H Creatinine 1.11 H Glucose 65 L Plasma Lactic Acid Jason Calcium 7.5 L AST Troponin I Total Protein Albumin Amylase 1041 H* 746 H* Lipase 1532 H 948 H 03/01/21 03/01/21 04:34 04:34 WBC 26.6 H RBC 3.01 L Hgb 9.0 L Hct 28.1 L RDW 16.1 H Plt Count 81 L Neutrophils # Neutrophils # (Manual) 22.60 H Metamyelocytes # (Man) 0.53 H Sodium Potassium 3.2 L Chloride BUN 44 H Creatinine Glucose 53 L Plasma Lactic Acid Jason Calcium 7.9 L AST 60 H Troponin I Total Protein 5.5 L Albumin 2.6 L Amylase Lipase 415 H - Diagnostic Findings Chest x-ray: image reviewed Assessment and Plan Plan: 1 abdominal distention currently under investigation. Rule out constipation. There may be also mild component of gallstone pancreatitis. LFTs are normal. Amylase and lipase were slightly elevated, improving. No evidence of any bowel obstruction or ileus at this point in time. The patient's nothing by mouth. NG tube is in place. PEG tube is also in place attached to the dependent drainage. 2 acute hypoxic respiratory failure, consider aspiration, consider aspiration pneumonia. Patient was initially 6 L about 2 by nasal cannula and currently the patient is on 100% on a beta facemasks. Reading is slightly labored. 3 previous history of pneumonias secondary to pseudomonas aeruginosa during [facility] hospitalizations 4 acute leukocytosis, currently under investigation, consider underlying sepsis 5 acute kidney injury, improving and the creatinine is down to 0.7 6 history of seizure activity maintained on combination of antiepileptic medication on outpatient basis 7 dementia 8 developmental delay 9 parkinsonian features 10. Effexor disorder 11 moderate degree of aortic stenosis with a harsh cardiac murmur as noted on physical examination. Please echocardiac Gab showing an ejection fraction of 55% with moderate degree of pulmonary hypertension 12 stage IV left buttocks ulcers post-debridement without evidence of any acute infection. 13 esophageal stricture and the patient has a PEG tube in place for enteral feeding and nutritional support 14 abnormal gait due to our concern is and then dementia and the patient is wheelchair-bound and the patient has a caregiver at all 15 paroxysmal atrial fibrillation current rhythm is sinus 16 hypertension 17 hyperlipidemia 18 previous history of pneumonia and respiratory failure requiring prolonged hospitalization mechanical ventilation 19 history of recurrent UTIs, urine cultures is indicating Pseudomonas , currently on IV cefepime 20 hypothyroidism 21 obstructive sleep apnea with an AHI of 78 maintained on a Pap on outpatient basis Plan Transfer this patient to the intensive care unit. Continue the Zosyn and Flagyl combination Ultrasound the gallbladder Monitor LFTs and the pancreatic enzymes Resume all medications Initiated the patient on laxatives regarding her constipation and the patient w ill be given lactulose and soapsuds enema Monitor oxygenation. Proceed with aspiration precaution measures. Keep the patient on the percent on a beta facemask. May utilize BiPAP if needed Transfer the patient intensive care unit and obtain a blood gas in the ICU Continue long-term anticoagulation with Eliquis Re: Paroxysmal atrial fibrillation Gentle fluid resuscitation with normal saline today to 50 mL an hour Give the patient nothing by mouth for now She is a full CODE STATUS based on caregivers.
[2021-03-01 16:46] LABS: Appearance,Urine Clear (Clear); Bacteria,Urine Rare /hpf; Bilirubin,Urine Negative (Negative); Blood,Urine Negative (Negative); Color,Urine Yellow; Glucose,Urine (UA) Negative (Negative); Ketones,Urine Negative (Negative); Leukocyte Esterase,Urine Small (Negative); Nitrite,Urine Negative (Negative); Protein,Urine Trace (Negative); RBC,Urine 1 /hpf (0-5); Specific Gravity,Urine 1.017 (1.001-1.035); Urobilinogen,Urine <2.0 mg/dL (<2.0); WBC,Urine 5 /hpf (0-5)
[2021-03-01 17:40] LABS: Glucose,Whole Blood 77 mg/dL (75-99)
[2021-03-01] MEDS: MAGNESIUM SULFATE-D5W PMX 1 GM in DEXTROSE/WATER 1 100ML.BAG IVPB SCH ×2 (18:14→21:11)
[2021-03-01] MEDS: LATANOPROST 0.005% OPHTH DROPS 2.5 ML BTL BOTH EYES SCH (22:05)
[2021-03-01 23:24] LABS: Glucose,Whole Blood 92 mg/dL (75-99)
[2021-03-02] MEDS: metroNIDAZOLE-NS PMX 500 MG in SALINE 1 100ML.BAG IVPB SCH ×4 (00:31→23:54)
[2021-03-02 01:24] LABS: Magnesium 2.6 mg/dL (1.6-2.3); Potassium 2.9 mmol/L (3.5-5.1)
[2021-03-02] MEDS: VALPROATE SODIUM 500 MG in SODIUM CHLORIDE 0.9% 100 ML IVPB SCH ×2 (02:58→14:58)
[2021-03-02] MEDS: LEVOTHYROXINE 100 MCG TAB PEG/G-TUBE SCH (05:05)
[2021-03-02] MEDS: LEVOTHYROXINE 75 MCG TAB PEG/G-TUBE SCH (05:05)
[2021-03-02] MEDS: PIPERACILLIN-TAZOBACTAM 3.375 GM in SODIUM CHLORIDE 0.9% 100 ML IVPB SCH ×3 (05:05→20:49)
[2021-03-02 05:15] LABS: Anisocytosis Slight; HGB 7.9 gm/dL (11.4-16.0); MCH 30.4 pg (25.0-35.0); MCHC 32.7 g/dL (31.0-37.0); Mean Platelet Volume 9.4; Platelet Count 99 k/uL (150-450); RBC 2.58 m/uL (3.80-5.40); RDW 16.8 % (11.5-15.5); WBC 23.7 k/uL (3.8-10.6)
[2021-03-02 05:45] LABS: ALT 20 U/L (4-34); AST 57 U/L (14-36); African American GFR (CKD) >90 (>60 ml/min/1.73 sqM); Albumin 2.4 g/dL (3.5-5.0); Alkaline Phosphatase 116 U/L (38-126); Anion Gap 9 mmol/L; Blood Urea Nitrogen 33 mg/dL (7-17); Calcium 8.1 mg/dL (8.4-10.2); Carbon Dioxide 29 mmol/L (22-30); Chloride 104 mmol/L (98-107); Glucose 75 mg/dL (74-99); Non-African American GFR(CKD) 84 (>60 ml/min/1.73 sqM); Potassium 2.8 mmol/L (3.5-5.1); Sodium 142 mmol/L (137-145); Total Bilirubin 0.4 mg/dL (0.2-1.3); Total Protein 5.1 g/dL (6.3-8.2)
[2021-03-02] MEDS: POTASSIUM BICARB-CITRIC ACID 25 MEQ TABLET.EFF PO SCH ×3 (05:49→09:26)
[2021-03-02] MEDS: SODIUM CHLORIDE 0.9% 1,000 ML IV SCH (05:55)
[2021-03-02] MEDS: PANTOPRAZOLE 40 MG/10 ML VIAL IVP SCH ×2 (09:15→20:49)
[2021-03-02] MEDS: risperiDONE 1 MG TAB PEG/G-TUBE SCH ×2 (09:26→20:49)
[2021-03-02] MEDS: APIXABAN 2.5 MG TABLET PEG/G-TUBE SCH ×2 (09:27→20:47)
[2021-03-02] MEDS: levETIRAcetam 500 MG TAB PEG/G-TUBE SCH ×2 (09:27→20:48)
[2021-03-02] MEDS: IPRATROPIUM-ALBUTEROL 3 ML NEB INHALATION SCH ×3 (09:42→19:38)
[2021-03-02] MEDS ORDERED: LACTULOSE 20 GM/30 ML CUP PO ONE (11:37)
--- NOTE | 2021-03-02 11:39 | P.PN ---
Subjective Progress Note Date: 03/02/21 On today's evaluation of 02/22/2021, the patient is currently in the intensive care unit. The patient is being monitored very closely as the patient had acute hypoxic respiratory failure, constipation, abdominal distention and a component of pancreatitis and for that reason she was hospitalized yesterday. Currently she doesn't 100% nonrebreather facemask. Chest x-ray from today still in progress. She has a congested cough. Her breathing is mildly labored. She is also mildly tachypneic. NG tube is in place and output is minimal at this point in time. Abdomen is still slightly distended. No direct tenderness. No rebound or tenderness. No guarding. Bowel sounds are hypoactive. White cell count is 23.7 with a hemoglobin of 7.9 and a platelet count of 99,000. The rest of the blood work and electrolytes show hypokalemia which is being replaced with a potassium level of 2.8. Normal renal function. The liver function tests are essentially normal. Albumin is at 2.4 with a protein of 5.1. Urine analysis was essentially negative. She remains on a combination of Zosyn and Flagyl. G eneral surgeries on the case. She was given lactulose in the emergency department. We have not encountered any bowel activity yet. I'm not sure whether she completed the soapsuds enema yesterday that was ordered in the emergency department. Ultrasound of the gallbladder was also completed and it showed no significant abnormalities and was a limited study because of her body habitus. Nevertheless, the gallbladder wall was not thickened and the common bile duct was only at 4 mm and there was no stones within the goal bladder.-pack-years was also secured. Objective - Vital Signs Vital signs: Vital Signs Temp 97.4 F L 03/02/21 10:00 Pulse 94 03/02/21 11:00 Resp 22 03/02/21 11:00 BP 118/56 03/02/21 11:00 Pulse Ox 95 03/02/21 11:00 Intake & Output 03/01/21 03/02/21 03/02/21 18:59 06:59 18:59 Intake Total 200 1200 50 Output Total 180 610 30 Balance 20 590 20 Weight 67.993 kg Intake: IV 200 1200 50 Magnesium Sulfate-D5w Pmx 200 1 gm In Dextrose/Water 1 100ml.bag @ 100 mls/hr IVPB Q1H DEANNA Rx#: [id number] Piperacillin-Tazobactam 3 100 .375 gm In Sodium Chloride 0.9% 100 ml @ 25 mls/hr IVPB Q8H DEANNA Rx#: [id number] Potassium Chloride 10 meq 100 200 In Water For Injection 1 100ml.bag @ 100 mls/hr IVPB Q1HR DEANNA Rx#: [id number] Sodium Chloride 0.9% 1, 100 500 50 000 ml @ 50 mls/hr IV . Q20H DEANNA Rx#:[id number] Valproate Sodium 500 mg 100 In Sodium Chloride 0.9% 100 ml @ 100 mls/hr IVPB Q12H DEANNA Rx#:[id number] metroNIDAZOLE-NS PMX 500 100 mg In Saline 1 100ml.bag @ 100 mls/hr IVPB Q8HR DEANNA Rx#:[id number] Output: Urine 180 610 30 Uretheral (Brunson) 100 Other: Voiding Method Indwelling Catheter # Voids 1 - Exam Calm and comfortable, the patient is resting , very lethargic yet arousable. She is currently on 100% on a NRB facemask. Head exam was generally normal. There was no scleral icterus or corneal arcus. Mucous membranes were moist. Neck was supple and without jugular venous distension, thyromegaly, or carotid bruits. Carotids were easily palpable bilaterally. There was no adenopathy. Orogastric and aortic tube are both in place. Lungs are diminished and the patient is on obvious thoracic and thoracolumbar kyphoscoliosis with cervical kyphosis. Rest of the equal and symmetrical. No wheezes or rhonchi. Cardiac exam revealed the PMI to be normally situated and sized. The rhythm was regular and no extrasystoles were noted during several minutes of auscultation. The first and second heart sounds were normal and physiologic splitting of the second heart sound was noted. There were systolic ejection murmur consistent with aortic stenosis , rubs, clicks, or gallops. Abdominal exam revealed normal bowel sounds. The abdomen was soft, non-tender, and without masses, however is slightly distended and the bowel sounds are hypoactive, organomegaly, or appreciable enlargement of the abdominal aorta. The patient is a PEG tube in place and the PEG tube site is dry clean and intact and there is no direct tenderness or rebound tensile guarding. Bowel sounds are hypoactive at the present Examination of the extremities revealed easily palpable radial, femoral and pedal pulses. There was no cyanosis, clubbing or edema. Examination of the skin revealed no evidence of significant rashes, suspicious appearing nevi or other concerning lesions. 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 Neurologically the patient is following some simple commands. No focal neurological deficit. - Labs CBC & Chem 7: 03/02/21 04:35 03/02/21 04:35 Labs: Abnormal Lab Results - Last 24 Hours (Table) 03/01/21 03/02/21 03/02/21 Range/Units 15:00 00:45 04:35 WBC 23.7 H (3.8-10.6) k/uL RBC 2.58 L (3.80-5.40) m/uL Hgb 7.9 L (11.4-16.0) gm/dL Hct 24.0 L (34.0-46.0) % RDW 16.8 H (11.5-15.5) % Plt Count 99 L (150-450) k/uL Potassium 2.9 L (3.5-5.1) mmol/L BUN (7-17) mg/dL Calcium (8.4-10.2) mg/dL Magnesium 2.6 H (1.6-2.3) mg/dL AST (14-36) U/L Total Protein (6.3-8.2) g/dL Albumin (3.5-5.0) g/dL Urine Protein Trace H (Negative) Ur Leukocyte Esterase Small H (Negative) Urine Bacteria Rare H (None) /hpf 03/02/21 Range/Units 04:35 WBC (3.8-10.6) k/uL RBC (3.80-5.40) m/uL Hgb (11.4-16.0) gm/dL Hct (34.0-46.0) % RDW (11.5-15.5) % Plt Count (150-450) k/uL Potassium 2.8 L (3.5-5.1) mmol/L BUN 33 H (7-17) mg/dL Calcium 8.1 L (8.4-10.2) mg/dL Magnesium (1.6-2.3) mg/dL AST 57 H (14-36) U/L Total Protein 5.1 L (6.3-8.2) g/dL Albumin 2.4 L (3.5-5.0) g/dL Urine Protein (Negative) Ur Leukocyte Esterase (Negative) Urine Bacteria (None) /hpf Microbiology - Last 24 Hours (Table) 03/01/21 15:00 Urine Culture - Preliminary Urine,Catheterized 02/28/21 15:57 Blood Culture - Preliminary Blood No Growth after 24 hours Assessment and Plan Plan: 1 abdominal distention currently under investigation. Rule out constipation. There may be also mild component of gallstone pancreatitis. LFTs are normal. Amylase and lipase were slightly elevated, improving. No evidence of any bowel obstruction or ileus at this point in time. The patient's nothing by mouth. NG tube is in place. PEG tube is also in place attached to the dependent drainage. 2 acute hypoxic respiratory failure, consider aspiration, consider aspiration pneumonia. Patient was initially 6 L about 2 by nasal cannula and currently the patient is on 100% on a beta facemasks. Reading is slightly labored. 3 previous history of pneumonias secondary to pseudomonas aeruginosa during [facility] hospitalizations 4 acute leukocytosis, currently under investigation, consider underlying sepsis 5 acute kidney injury, improving and the creatinine is down to 0.7 6 history of seizure activity maintained on combination of antiepileptic medication on outpatient basis 7 dementia 8 developmental delay 9 parkinsonian features 10. Effexor disorder 11 moderate degree of aortic stenosis with a harsh cardiac murmur as noted on physical examination. Please echocardiac Gab showing an ejection fraction of 55% with moderate degree of pulmonary hypertension 12 stage IV left buttocks ulcers post-debridement without evidence of any acute infection. 13 esophageal stricture and the patient has a PEG tube in place for enteral feeding and nutritional support 14 abnormal gait due to our concern is and then dementia and the patient is wheelchair-bound and the patient has a caregiver at all 15 paroxysmal atrial fibrillation current rhythm is sinus 16 hypertension 17 hyperlipidemia 18 previous history of pneumonia and respiratory failure requiring prolonged hospitalization mechanical ventilation 19 history of recurrent UTIs, urine cultures is indicating Pseudomonas , currently on IV cefepime 20 hypothyroidism 21 obstructive sleep apnea with an AHI of 78 maintained on a Pap on outpatient basis Plan No major changes in the patient's condition since yesterday. Ultrasound the gallbladder showed no evidence of any gallbladder disease. Pancreatic enzymes are declining. The patient has some abdominal distention probably related to constipation. I suggest discontinuing the NG tube. Using the PACU for lactulose. Should be able to get on a enema. General surgeries on the case. We'll hold off on enteral feeding for now till the batteries. By general evelyne alice. Suspect aspiration pneumonia. Proceed with aspiration precautions. Continue Zosyn and Flagyl for now. Repeat chest x-ray in a.m. May use BiPAP if needed. CODE STATUS needs to be discussed again with the guardian and I think it's reasonable to switch her to a DNR/DNI CODE STATUS and continue the rest of the medical treatment. For now, her CODE STATUS is full. She is on IV fluids with normal saline today to 50 mL an hour. Rest of the home medication including anticoagulation and antiplatelet medications are all being delivered at this point in time.
[2021-03-02] MEDS: DOCUSATE 100 MG CAP PO SCH ×2 (11:45→20:49)
--- NOTE | 2021-03-02 12:51 | P.PN ---
<Char Morillo - Last Filed: 03/02/21 12:43> Subjective Progress Note Date: 03/02/21 CHIEF COMPLAINT: Abdominal pain HISTORY OF PRESENT ILLNESS: This is a 80-year-old female presented with abdominal pain and evidence of gallstone stone pancreatitis. She had been having nausea and vomiting. She was found have elevated lipase and amylase. There were gallstones evident on CAT scan as well as constipation. Her abdom inal ultrasound had showed no evidence of gallstones. But her exam is extremely limited secondary to patient's condition. Patient is currently in the ICU. She is hypothermic and has a warming blanket. NG tube is scheduled to be removed today. No bowel movement reported. It appears that patient may have not receive the soapsuds enemas that were ordered. Afebrile. She is on a nonrebreather 15 L. WBC is 23.7 hemoglobin 7.9 platelets 99 sodium 142 potassium 2.8 creatinine 0.66 magnesium 2.6 total bili 0.4 AST 57 ALT 20 alk phos 116. PHYSICAL EXAM: VITAL SIGNS: Reviewed GENERAL: Well-developed in no acute distress. HEENT: No sclera icterus. Extraocular movements grossly intact. Moist buccal mucosa. Head is atraumatic, normocephalic. Hears conversational speech. No nasal drainag e. NECK: Supple without lymphadenopathy. CHEST: Non-labored respirations and equal bilateral excursions. CARDIOVASCULAR: Palpable 2+ radial pulses. ABDOMEN: Soft. Distended MUSCULOSKELETAL: No clubbing or cyanosis. NEUROLOGIC: No focal or lateralizing signs. Cranial nerves II through XII g rossly intact. PSYCH: Appropriate affect. Alert and oriented to person, place and time. SKIN: Well perfused. Good skin turgor. ASSESSMENT: 1. Gallstone pancreatitis 2. Constipation 3. Developmental delay 4. Hypokalemia 5. Episode of coffee-ground emesis prior to admission 6. Suspected aspiration pneumonia PLAN: -Recommend conservative management -No surgical intervention planned -Continue antibiotics -Soap lisette enemas and lactulose ordered again for constipation -Discontinue NG tube -Continue PPI -Continue ICU management and supportive care -Continue to replace potassium Physician Chipper note has been reviewed by physician. Signing provider agrees with the documented findings, assessment, and plan of care. Objective - Vital Signs Vital signs: Vital Signs Temp 97.4 F L 03/02/21 10:00 Pulse 88 03/02/21 12:37 Resp 22 03/02/21 11:00 BP 118/56 03/02/21 11:00 Pulse Ox 95 03/02/21 11:00 Intake & Output 03/01/21 03/02/21 03/02/21 18:59 06:59 18:59 Intake Total 200 1200 50 Output Total 180 610 30 Balance 20 590 20 Weight 67.993 kg Intake: IV 200 1200 50 Magnesium Sulfate-D5w Pmx 200 1 gm In Dextrose/Water 1 100ml.bag @ 100 mls/hr IVPB Q1H [facility] Rx#: [id number] Piperacillin-Tazobactam 3 100 .375 gm In Sodium Chloride 0.9% 100 ml @ 25 mls/hr IVPB Q8H [facility] Rx#: [id number] Potassium Chloride 10 meq 100 200 In Water For Injection 1 100ml.bag @ 100 mls/hr IVPB Q1HR [facility] Rx#: [id number] Sodium Chloride 0.9% 1, 100 500 50 000 ml @ 50 mls/hr IV . Q20H [facility] Rx#:[id number] Valproate Sodium 500 mg 100 In Sodium Chloride 0.9% 100 ml @ 100 mls/hr IVPB Q12H [facility] Rx#:[id number] metroNIDAZOLE-NS PMX 500 100 mg In Saline 1 100ml.bag @ 100 mls/hr IVPB Q8HR [facility] Rx#:[id number] Output: Urine 180 610 30 Uretheral (Brunson) 100 Other: Voiding Method Indwelling Catheter # Voids 1 - Labs CBC & Chem 7: 03/02/21 04:35 03/02/21 04:35 Labs: Abnormal Lab Results - Last 24 Hours (Table) 03/01/21 03/02/21 03/02/21 Range/Units 15:00 00:45 04:35 WBC 23.7 H (3.8-10.6) k/uL RBC 2.58 L (3.80-5.40) m/uL Hgb 7.9 L (11.4-16.0) gm/dL Hct 24.0 L (34.0-46.0) % RDW 16.8 H (11.5-15.5) % Plt Count 99 L (150-450) k/uL Potassium 2.9 L (3.5-5.1) mmol/L BUN (7-17) mg/dL Calcium (8.4-10.2) mg/dL Magnesium 2.6 H (1.6-2.3) mg/dL AST (14-36) U/L Total Protein (6.3-8.2) g/dL Albumin (3.5-5.0) g/dL Urine Protein Trace H (Negative) Ur Leukocyte Esterase Small H (Negative) Urine Bacteria Rare H (None) /hpf 03/02/21 Range/Units 04:35 WBC (3.8-10.6) k/uL RBC (3.80-5.40) m/uL Hgb (11.4-16.0) gm/dL Hct (34.0-46.0) % RDW (11.5-15.5) % Plt Count (150-450) k/uL Potassium 2.8 L (3.5-5.1) mmol/L BUN 33 H (7-17) mg/dL Calcium 8.1 L (8.4-10.2) mg/dL Magnesium (1.6-2.3) mg/dL AST 57 H (14-36) U/L Total Protein 5.1 L (6.3-8.2) g/dL Albumin 2.4 L (3.5-5.0) g/dL Urine Protein (Negative) Ur Leukocyte Esterase (Negative) Urine Bacteria (None) /hpf Microbiology - Last 24 Hours (Table) 03/01/21 15:00 Urine Culture - Preliminary Urine,Catheterized 02/28/21 15:57 Blood Culture - Preliminary Blood No Growth after 24 hours <Milagros Mayberry - Last Filed: 03/06/21 19:49> Subjective CHIEF COMPLAINT: Abdominal distention HISTORY OF PRESENT ILLNESS: The patient is a 80-year-old female who presented with coffee-ground emesis on admission now resolved. She is in the ICU letharg ic. Minimal responsive. ROS: No fevers or chills. No acute chest pain. PHYSICAL EXAM: VITAL SIGNS: Reviewed CONSTITUTIONAL: Well developed and in no acute distress. EYES: Conjuctivae without sclera icterus. Extraocular movements grossly intact. HEAD, EARS, NOSE, THROAT: Moist buccal mucosa. Head is atraumatic, normocephalic. NG tube present. NECK: No gross thyroidomegaly. No jugular venous distention. RESPIRATORY: Non-labored respirations and equal bilateral excursions. CARDIOVASCULAR: Palpable 2+ radial pulses. ABDOMEN: No peritonitis. MUSCULOSKELETAL: No gross deformity of the lower extremities noted. No clubbing. No cyanosis. SKIN: Good skin turgor. Well perfused. NEUROLOGIC: Cranial nerves II through XII grossly intact. Lethargic. PSYCH: Appropriate affect. Alert and oriented to person, place and time. CLINICAL LABS: White blood cell presentation over 36,000. WBC trending down March 24 3000. Amylase lipase also trending downward. Potassium level less than 3.5. REPORT: Chest x-ray report demonstrating worsening aspiration pneumonia ASSESSMENT: 1. Sepsis on presentation 2. Hypertensive heart disease with congestive heart failure 3. Generalized debility 4. Abdominal distention 5. Aspiration pneumonia PLAN: 1. Continue IV antibiotics for sepsis with aspiration pneumonia. 2. Continue with laxatives. 3. Patient is an guarded condition due to generalized debility Objective - Vital Signs Vital signs: Vital Signs Temp 97.5 F L 03/05/21 08:00 Pulse 73 03/05/21 11:00 Resp 28 H 03/05/21 11:00 BP 101/74 03/05/21 11:00 Pulse Ox 83 L 03/05/21 11:00 - Labs CBC & Chem 7: 03/05/21 04:05 03/05/21 04:05 Labs: Microbiology - Last 24 Hours (Table) 02/28/21 15:57 Blood Culture - Final Blood No Growth after 144 hours Assessment and Plan (1) Pancreatitis Status: Acute Code(s): K85.90 - ACUTE PANCREATITIS WITHOUT NECROSIS OR INFECTION, UNSP SNOMED Code(s): 75975519 (2) Abdominal distension Status: Acute Code(s): R14.0 - ABDOMINAL DISTENSION (GASEOUS) SNOMED Code(s): 32662840 (3) Constipation Status: Acute Code(s): K59.00 - CONSTIPATION, UNSPECIFIED SNOMED Code(s): 81131640 (4) Dysphagia Status: Acute Code(s): R13.10 - DYSPHAGIA, UNSPECIFIED SNOMED Code(s): 72518359 (5) Aspiration pneumonia Status: Acute Code(s): J69.0 - PNEUMONITIS DUE TO INHALATION OF FOOD AND VOMIT SNOMED Code(s): 383649392
[2021-03-02 13:00] LABS: Glucose,Whole Blood 73 mg/dL (75-99)
--- NOTE | 2021-03-02 15:14 | P.PN ---
Subjective Progress Note Date: 03/02/21 80-year-old the female came in for coffee-ground emesis and upper GI bleed which resolved at this time patient is on Protonix. Patient does have leukocytosis and patient is also being treated for pneumonia although there is no evidence of pneumonia on the computed tomography scan, I reviewed the computed tomography scan which showed infiltrate in bilateral lower lung huynh which appears to be atelectasis patient does have highly elevated white blood cell count of 34,000 without any fever etiology of this white blood cell count is not clear this did improve with IV antibiotics that is Zosyn for now until a we find the source off infection if at all any will continued antibiotic patient lipase was also elevated and cannot get any history from the patient. Unsure whether patient had pancreatitis. Ultrasound of the abdomen did not show any gallstone. Patient is hyponatremic and aspirin were replaced patient is receiving Lasix as well as IV fluids Lasix will be discontinued. Patient had acute renal failure which improved at this time. patient has no evidence of congestive heart failure at this time. 03/02/2021 Patient continues to be obtunded and unresponsive and currently maintained on 15 L nonrebreather and continues to be closely monitored in the ICU. Pulmonary see supervisor following closely.patient continues on Flagyl and Zosyn and will continue with gentle IV hydration.potassium critically low at 2.8 and being replaced. Sodium is 142, BUN is 33 and creatinine is 0.66.white blood count slightly trending down at 23.7 and hemoglobin is 7.9. blood pressure is improved and is in the 1 teens systolic. Chest x-ray is ordered and pending.surgery also following recommending conservative management with no surgical interventions planned at this time. Soapsuds enemas and lactulose ordered with minimal output noted in the NG tube and being discontinued. Patient is continued on IV Protonix and will continue. Prognosis remains poor and CODE STATUS needs to be addressed with legal guardian. DNR is appropriate for this patient. patient will require supporting documentation to bring to court as she is developmentally delayed in order to change CODE STATUS. Case management made aware. REVIEW OF SYSTEMS: Unable to obtain due to her clinical condition PHYSICAL EXAMINATION: GENERAL: Patient is sleepingand unresponsive and obtunded unable to answer any questions which appears to be some chronic contractures noted on exam as well HEENT: Pupils are round and equally reacting to light. EOMI. No scleral icterus. No conjunctival pallor. Normocephalic, atraumatic. No pharyngeal erythema. No thyromegaly. CARDIOVASCULAR: S1 and S2 present. No murmurs, rubs, or gallops. PULMONARY: diminished breath sounds bilaterally with some upper tracheal gurgling notedno wheezing or rhonchi on exam ABDOMEN: Soft, nontender, NG tube in place an NG tube is still draining minima lly and being discontinued MUSCULOSKELETAL: No joint swelling or deformity. EXTREMITIES: No cyanosis, clubbing, or pedal edema. NEUROLOGICAL: Patient is not following commands unable to assess. SKIN: No rashes. Assessment and plan: -Acute upper GI bleed probably peptic ulcer disease patient will be continued on Protonix -Possibly a pancreatitis etiology is not clear no gallstone on the ultrasound -Leukocytosis may be secondary to upper GI bleed or pancreatitis so far I didn't see any evidence of infection no evidence of pneumonia at this time -Atelectasis bilateral -acute hypoxic respiratory failure requiring 15 L nonrebreather possibly secondary to aspiration pneumonia, continue supplemental oxygen support and wean as tolerated and patient is maintained on Flagyl and Zosyn -Hypervolemic hyponatremia improved with IV fluids -Acute renal failure prerenal azotemia secondary to intravascular depletion and dehydration improved with IV fluids -Lactic acidosis secondary to intravascular depletion no clear evidence of sepsis at this time -History of atrial fibrillation -Dementia -Hypertension -Hyperlipidemia -Seizure disorder for which patient is on valproic acid via IV and Keppra via PEG tube -Hypothyroidism -Schizoaffective disorder -Hypokalemia natriuretic hypokalemia, potassium being replacedas potassium was 2.8 today -DVT prophylaxis: SCDs Objective - Vital Signs Vital signs: Vital Signs Temp 98.7 F 03/01/21 20:00 Pulse 82 03/02/21 07:00 Resp 20 03/02/21 07:00 BP 122/55 03/02/21 07:00 Pulse Ox 97 03/02/21 07:00 Intake & Output 03/01/21 03/02/21 03/02/21 18:59 06:59 18:59 Intake Total 200 1200 50 Output Total 180 610 30 Balance 20 590 20 Weight 67.993 kg Intake: IV 200 1200 50 Magnesium Sulfate-D5w Pmx 200 1 gm In Dextrose/Water 1 100ml.bag @ 100 mls/hr IVPB Q1H [facility] Rx#: [id number] Piperacillin-Tazobactam 3 100 .375 gm In Sodium Chloride 0.9% 100 ml @ 25 mls/hr IVPB Q8H [facility] Rx#: [id number] Potassium Chloride 10 meq 100 200 In Water For Injection 1 100ml.bag @ 100 mls/hr IVPB Q1HR [facility] Rx#: [id number] Sodium Chloride 0.9% 1, 100 500 50 000 ml @ 50 mls/hr IV . Q20H [facility] Rx#:[id number] Valproate Sodium 500 mg 100 In Sodium Chloride 0.9% 100 ml @ 100 mls/hr IVPB Q12H [facility] Rx#:[id number] metroNIDAZOLE-NS PMX 500 100 mg In Saline 1 100ml.bag @ 100 mls/hr IVPB Q8HR [facility] Rx#:[id number] Output: Urine 180 610 30 Uretheral (Brunson) 100 Other: Voiding Method Indwelling Catheter # Voids 1 - Labs CBC & Chem 7: 03/02/21 04:35 03/02/21 04:35 Labs: Abnormal Lab Results - Last 24 Hours (Table) 03/01/21 03/02/21 03/02/21 Range/Units 15:00 00:45 04:35 WBC 23.7 H (3.8-10.6) k/uL RBC 2.58 L (3.80-5.40) m/uL Hgb 7.9 L (11.4-16.0) gm/dL Hct 24.0 L (34.0-46.0) % RDW 16.8 H (11.5-15.5) % Plt Count 99 L (150-450) k/uL Potassium 2.9 L (3.5-5.1) mmol/L BUN (7-17) mg/dL Calcium (8.4-10.2) mg/dL Magnesium 2.6 H (1.6-2.3) mg/dL AST (14-36) U/L Total Protein (6.3-8.2) g/dL Albumin (3.5-5.0) g/dL Urine Protein Trace H (Negative) Ur Leukocyte Esterase Small H (Negative) Urine Bacteria Rare H (None) /hpf 03/02/21 Range/Units 04:35 WBC (3.8-10.6) k/uL RBC (3.80-5.40) m/uL Hgb (11.4-16.0) gm/dL Hct (34.0-46.0) % RDW (11.5-15.5) % Plt Count (150-450) k/uL Potassium 2.8 L (3.5-5.1) mmol/L BUN 33 H (7-17) mg/dL Calcium 8.1 L (8.4-10.2) mg/dL Magnesium (1.6-2.3) mg/dL AST 57 H (14-36) U/L Total Protein 5.1 L (6.3-8.2) g/dL Albumin 2.4 L (3.5-5.0) g/dL Urine Protein (Negative) Ur Leukocyte Esterase (Negative) Urine Bacteria (None) /hpf Microbiology - Last 24 Hours (Table) 03/01/21 15:00 Urine Culture - Preliminary Urine,Catheterized 02/28/21 15:57 Blood Culture - Preliminary Blood No Growth after 24 hours
--- NOTE | 2021-03-02 16:11 | XR ---
EXAMINATION TYPE: XR chest 1V portable DATE OF EXAM: 03/02/2021 Comparison: 03/01/2021 Clinical History: 80-year-old female Aspiration pneumonia Findings: Left heart margin obscured by adjacent pleural parenchymal opacity. Multifocal airspace opacities are redemonstrated, greatest in the left mid and lower lung and then scattered throughout the right lung . Interval worsening on the left. Impression: Continued multifocal airspace disease, greatest in the left mid and lower lung. Airspace disease has worsened and is severe now on the left side.
[2021-03-02] MEDS ORDERED: LACTULOSE 20 GM/30 ML CUP PEG/G-TUBE ONE (17:45)
[2021-03-02] MEDS: LATANOPROST 0.005% OPHTH DROPS 2.5 ML BTL BOTH EYES SCH (20:48)
[2021-03-02] MEDS: POTASSIUM BICARBONATE/CIT AC 20 MEQ TABLET.EFF NG-TUBE SCH ×2 (20:50→22:07)
[2021-03-02 20:58] LABS: Glucose,Whole Blood 90 mg/dL (75-99)
[2021-03-03] MEDS: SODIUM CHLORIDE 0.9% 1,000 ML IV SCH (02:05)
[2021-03-03] MEDS: VALPROATE SODIUM 500 MG in SODIUM CHLORIDE 0.9% 100 ML IVPB SCH ×2 (02:05→14:58)
[2021-03-03 04:02] LABS: Anisocytosis Slight; Basophils # (A) 0.1 k/uL (0-0.2); Basophils % (A) 0 %; Eosinophils # (A) 0.3 k/uL (0-0.7); Eosinophils % (A) 1 %; HGB 7.3 gm/dL (11.4-16.0); Lymphocytes # (A) 1.4 k/uL (1.0-4.8); Lymphocytes % (A) 7 %; MCH 29.7 pg (25.0-35.0); MCHC 31.9 g/dL (31.0-37.0); MCV 93.1 fL (80.0-100.0); Mean Platelet Volume 8.7; Monocytes # (A) 0.5 k/uL (0-1.0); Monocytes % (A) 2 %; Neutrophils # (A) 18.8 k/uL (1.3-7.7); Neutrophils % (A) 89 %; RBC 2.47 m/uL (3.80-5.40); RDW 17.2 % (11.5-15.5); WBC 21.2 k/uL (3.8-10.6)
[2021-03-03 04:10] LABS: Platelet Count 97 k/uL (150-450)
[2021-03-03 04:24] LABS: ALT 18 U/L (4-34); AST 49 U/L (14-36); African American GFR (CKD) >90 (>60 ml/min/1.73 sqM); Albumin 2.3 g/dL (3.5-5.0); Alkaline Phosphatase 118 U/L (38-126); Anion Gap 7 mmol/L; Blood Urea Nitrogen 26 mg/dL (7-17); Calcium 8.4 mg/dL (8.4-10.2); Carbon Dioxide 31 mmol/L (22-30); Chloride 109 mmol/L (98-107); Glucose 78 mg/dL (74-99); Non-African American GFR(CKD) 86 (>60 ml/min/1.73 sqM); Potassium 3.8 mmol/L (3.5-5.1); Sodium 147 mmol/L (137-145); Total Bilirubin 0.3 mg/dL (0.2-1.3)
[2021-03-03] MEDS ORDERED: POTASSIUM BICARB-CITRIC ACID 25 MEQ TABLET.EFF PO SCH (05:00)
[2021-03-03] MEDS: PIPERACILLIN-TAZOBACTAM 3.375 GM in SODIUM CHLORIDE 0.9% 100 ML IVPB SCH ×3 (05:08→20:22)
[2021-03-03] MEDS: LEVOTHYROXINE 75 MCG TAB PEG/G-TUBE SCH (05:50)
[2021-03-03] MEDS: LEVOTHYROXINE 100 MCG TAB PEG/G-TUBE SCH (05:50)
--- NOTE | 2021-03-03 07:13 | XR ---
EXAMINATION TYPE: XR chest 1V portable DATE OF EXAM: 03/03/2021 HISTORY: Shortness of breath. COMPARISON: 11/30/2020 TECHNIQUE: Single view of the chest is submitted. FINDINGS: Demonstrated are scattered senescent parenchymal change. Patchy infiltrates throughout both lung huynh persist unchanged. The heart is stable. Hilar and mediastinal structures are within normal limits. Degenerative changes are seen of the dorsal spine. IMPRESSION: 1. Patchy infiltrates throughout both lung huynh persist unchanged.
--- NOTE | 2021-03-03 08:22 | P.PN ---
Subjective Progress Note Date: 03/03/21 On today's evaluation of 02/22/2021, the patient is currently in the intensive care unit. The patient is being monitored very closely as the patient had acute hypoxic respiratory failure, constipation, abdominal distention and a component of pancreatitis and for that reason she was hospitalized yesterday. Currently she doesn't 100% nonrebreather facemask. Chest x-ray from today still in progress. She has a congested cough. Her breathing is mildly labored. She is also mildly tachypneic. NG tube is in place and output is minimal at this point in time. Abdomen is still slightly distended. No direct tenderness. No rebound or tenderness. No guarding. Bowel sounds are hypoactive. White cell count is 23.7 with a hemoglobin of 7.9 and a platelet count of 99,000. The rest of the blood work and electrolytes show hypokalemia which is being replaced with a potassium level of 2.8. Normal renal function. The liver function tests are essentially normal. Albumin is at 2.4 with a protein of 5.1. Urine analysis was essentially negative. She remains on a combination of Zosyn and Flagyl. G eneral surgeries on the case. She was given lactulose in the emergency department. We have not encountered any bowel activity yet. I'm not sure whether she completed the soapsuds enema yesterday that was ordered in the emergency department. Ultrasound of the gallbladder was also completed and it showed no significant abnormalities and was a limited study because of her body habitus. Nevertheless, the gallbladder wall was not thickened and the common bile duct was only at 4 mm and there was no stones within the goal bladder.-pack-years was also secured. 03/03/2021, and seeing this patient for a follow-up. She is quite lethargic and not interactive and nonresponsive which is not unusual for her whenever she gets sick. I'm suspecting an aspiration pneumonia. The patient has diffuse b ilateral pulmonary infiltrates. She is currently on 100% nonrebreather facemask. Her coughing is less and her breathing is less labored compared to yesterday. Her pulse ox is currently around 96%. No signs of any fluid overload knowing that she has an aortic stenosis. IV fluids are running in the form of normal saline at the rate of 50 mL an hour. She is afebrile. She is hemodynamic is stable. Efforts to improve her bowel mobility and constipation included a soapsuds enema yesterday, Colace and lactulose. Her abdomen is less distended today. No direct tenderness. No rebound tenderness. No guarding or guarding. The patient also had a small bowel movement. Surgical team decided t o proceed with she'll feeds through the PEG tube with a lower rate. NG tube is removed. Meanwhile, the patient is on broad-spectrum antibiotics and she is currently on Zosyn and Flagyl. The white cell count of 21.2 which is lower compared to yesterday. Hemoglobin stable at 7.3, slightly lower compared to yesterday, platelet count is at 97. Sodium level is at 147 and I think it's reasonable to give her some free water through the PEG tube. BUN is 26 with a creatinine of 0.6. Amylase and lipase were also dropping. No other significant events. She is afebrile. She is hemodynamically stable. Objective - Vital Signs Vital signs: Vital Signs Temp 97.6 F 03/03/21 04:00 Pulse 87 03/03/21 07:00 Resp 24 03/03/21 07:00 BP 120/52 03/03/21 07:00 Pulse Ox 96 03/03/21 07:00 Intake & Output 03/02/21 03/03/21 03/03/21 18:59 06:59 18:59 Intake Total 1000 1000 50 Output Total 430 460 30 Balance 570 540 20 Weight 73.3 kg 73.1 kg Intake: IV 1000 1000 50 Piperacillin-Tazobactam 3 100 200 .375 gm In Sodium Chloride 0.9% 100 ml @ 25 mls/hr IVPB Q8H [facility] Rx#: [id number] Sodium Chloride 0.9% 1, 600 600 50 000 ml @ 50 mls/hr IV . Q20H [facility] Rx#:[id number] Valproate Sodium 500 mg 100 100 In Sodium Chloride 0.9% 100 ml @ 100 mls/hr IVPB Q12H [facility] Rx#:[id number] metroNIDAZOLE-NS PMX 500 200 100 mg In Saline 1 100ml.bag @ 100 mls/hr IVPB Q8HR [facility] Rx#:[id number] Output: Urine 430 460 30 Other: Voiding Method Indwelling Catheter Indwelling Catheter # Bowel Movements 1 - Exam Calm and comfortable, the patient is resting , very lethargic yet arousable. She is currently on 100% on a NRB facemask. Head exam was generally normal. There was no scleral icterus or corneal arcus. Mucous membranes were moist. Neck was supple and without jugular venous distension, thyromegaly, or carotid bruits. Carotids were easily palpable bilaterally. There was no adenopathy. Orogastric and aortic tube are both in place. Lungs are diminished and the patient is on obvious thoracic and thoracolumbar kyphoscoliosis with cervical kyphosis. Rest of the equal and symmetrical. No wheezes or rhonchi. Cardiac exam revealed the PMI to be normally situated and sized. The rhythm was regular and no extrasystoles were noted during several minutes of auscultation. The first and second heart sounds were normal and physiologic splitting of the second heart sound was noted. There were systolic ejection murmur consistent with aortic stenosis , rubs, clicks, or gallops. Abdominal exam revealed normal bowel sounds. The abdomen was soft, non-tender, and without masses, however is slightly distended and the bowel sounds are hypoactive, organomegaly, or appreciable enlargement of the abdominal aorta. The patient is a PEG tube in place and the PEG tube site is dry clean and intact and there is no direct tenderness or rebound tensile guarding. Bowel sounds are hypoactive at the present Examination of the extremities revealed easily palpable radial, femoral and pedal pulses. There was no cyanosis, clubbing or edema. Examination of the skin revealed no evidence of significant rashes, suspicious appearing nevi or other concerning lesions. 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 Neurologically the patient is following some simple commands. No focal neurological deficit. - Labs CBC & Chem 7: 03/03/21 03:26 03/03/21 03:26 Labs: Abnormal Lab Results - Last 24 Hours (Table) 03/02/21 03/02/21 03/03/21 Range/Units 12:58 18:22 03:26 WBC 21.2 H (3.8-10.6) k/uL RBC 2.47 L (3.80-5.40) m/uL Hgb 7.3 L (11.4-16.0) gm/dL Hct 23.0 L (34.0-46.0) % RDW 17.2 H (11.5-15.5) % Plt Count 97 L (150-450) k/uL Neutrophils # 18.8 H (1.3-7.7) k/uL Sodium (137-145) mmol/L Potassium 3.4 L (3.5-5.1) mmol/L Chloride (98-107) mmol/L Carbon Dioxide (22-30) mmol/L BUN (7-17) mg/dL POC Glucose (mg/dL) 73 L (75-99) mg/dL AST (14-36) U/L Total Protein (6.3-8.2) g/dL Albumin (3.5-5.0) g/dL 03/03/21 Range/Units 03:26 WBC (3.8-10.6) k/uL RBC (3.80-5.40) m/uL Hgb (11.4-16.0) gm/dL Hct (34.0-46.0) % RDW (11.5-15.5) % Plt Count (150-450) k/uL Neutrophils # (1.3-7.7) k/uL Sodium 147 H (137-145) mmol/L Potassium (3.5-5.1) mmol/L Chloride 109 H (98-107) mmol/L Carbon Dioxide 31 H (22-30) mmol/L BUN 26 H (7-17) mg/dL POC Glucose (mg/dL) (75-99) mg/dL AST 49 H (14-36) U/L Total Protein 5.0 L (6.3-8.2) g/dL Albumin 2.3 L (3.5-5.0) g/dL Microbiology - Last 24 Hours (Table) 03/01/21 15:00 Urine Culture - Final Urine,Catheterized 02/28/21 15:57 Blood Culture - Preliminary Blood No Growth after 48 hours Assessment and Plan Plan: 1 abdominal distention currently under investigation. Rule out constipation. There may be also mild component of gallstone pancreatitis. LFTs are normal. Amylase and lipase were slightly elevated, improving. No evidence of any bowel obstruction or ileus at this point in time. The patient's nothing by mouth. The NG tube has been removed. The patient was given laxatives and her abdomen is less distended on today's evaluation 2 acute hypoxic respiratory failure, consider aspiration, consider aspiration pneumonia. Patient was initially 6 L about 2 by nasal cannula and currently the patient is on 100% on a beta facemasks. Reading is less labored compared to yesterday. Chest x-ray still showing diffuse but the pulmonary infiltrates consistent with aspiration pneumonia. Interstitial fluid/edema is felt to be less likely. 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 Please echocardiac Gab showing an ejection fraction of 55% with moderate degree of pulmonary hypertension 12 stage IV left buttocks ulcers post-debridement without evidence of any acute infection. 13 esophageal stricture and the patient has a PEG tube in place for enteral feeding and nutritional support 14 abnormal gait due to our concern is and then dementia and the patient is wheelchair-bound and the patient has a caregiver at all 15 paroxysmal atrial fibrillation current rhythm is sinus 16 hypertension 17 hyperlipidemia 18 previous history of pneumonia and respiratory failure requiring prolonged hospitalization mechanical ventilation 19 history of recurrent UTIs, urine cultures is indicating Pseudomonas , currently on IV cefepime 20 hypothyroidism 21 obstructive sleep apnea with an AHI of 78 maintained on a Pap on outpatient basis Plan Keep the patient 100% nonrebreather facemask and watch for any signs of aspiration Continue Zosyn and Flagyl BiPAP if needed should there be a decompensation of her breathing. Her breathing is less labored compared to yesterday Continue lactulose at a dose of 30 mL twice a day Continue Colace Free water supplements through the PEG tube 250 mL every 4 hours Monitor sodium levels Mother abdominal status and watch for any further distention No pressors for now Continued antiepileptic medications Watch for any signs of fluid overload NG tube is removed Change IV fluids to half-normal saline at rate of 50 mL an hour We are working with the public guardian to change her CODE STATUS to DNR/DNI at least.
[2021-03-03] MEDS: risperiDONE 1 MG TAB PEG/G-TUBE SCH ×2 (08:35→20:22)
[2021-03-03] MEDS: APIXABAN 2.5 MG TABLET PEG/G-TUBE SCH ×2 (08:35→20:21)
[2021-03-03] MEDS: levETIRAcetam 500 MG TAB PEG/G-TUBE SCH ×2 (08:36→20:21)
[2021-03-03] MEDS: metroNIDAZOLE-NS PMX 500 MG in SALINE 1 100ML.BAG IVPB SCH ×2 (08:36→16:33)
[2021-03-03] MEDS: PANTOPRAZOLE 40 MG/10 ML VIAL IVP SCH ×2 (08:37→20:22)
[2021-03-03] MEDS: DOCUSATE ORAL SOLN 100 MG/10 ML CUP PO SCH ×2 (08:44→20:22)
[2021-03-03] MEDS ORDERED: SODIUM CHLORIDE 0.45% 1,000 ML IV ONE (08:47)
[2021-03-03] MEDS: IPRATROPIUM-ALBUTEROL 3 ML NEB INHALATION SCH ×3 (09:15→20:27)
[2021-03-03 09:47] LABS: ABG Base Excess 9.4 mmol/L; ABG HCO3 34 mmol/L (21-25); ABG Oxygen Saturation 95.2 % (94-97); ABG PCO2 57 mmHg (35-45); ABG PH 7.39 (7.35-7.45); ABG PO2 72 mmHg (83-108); ABG TCO2 36 mmol/L (19-24); Allen Test Performed? Yes
[2021-03-03] MEDS ORDERED: LACTULOSE 20 GM/30 ML CUP PO ONE (12:30)
--- NOTE | 2021-03-03 12:35 | P.PN ---
<ManuelsaurabhChar - Last Filed: 03/03/21 12:30> Subjective Progress Note Date: 03/03/21 CHIEF COMPLAINT: Abdominal pain HISTORY OF PRESENT ILLNESS: This is a 80-year-old female presented with abdominal pain and evidence of gallstone stone pancreatitis. She had been having nausea and vomiting. She was found have elevated lipase and amylase. There were gallstones evident on CAT scan as well as constipation. Her abdom inal ultrasound had showed no evidence of gallstones. But her exam is extremely limited secondary to patient's condition. Patient is currently in the ICU. He is still requiring a nonrebreather. She remains lethargic. Patient did have a small bowel movement yesterday. No further episodes of nausea or vomiting. Patient's tube feedings have been restarted at a slow rate. WBC 21.2 hemoglobin 7.3 platelets 97 calcium improved at 3.8 PHYSICAL EXAM: VITAL SIGNS: Reviewed GENERAL: Well-developed in no acute distress. HEENT: No sclera icterus. Extraocular movements grossly intact. Moist buccal mucosa. Head is atraumatic, normocephalic. Hears conversational speech. No nasal drainage. NECK: Supple without lymphadenopathy. CHEST: Non-labored respirations and equal bilateral excursions. CARDIOVASCULAR: Palpable 2+ radial pulses. ABDOMEN: Soft. Distended MUSCULOSKELETAL: No clubbing or cyanosis. NEUROLOGIC: Lethargic PSYCH: Appropriate affect. Alert and oriented to person, place and time. SKIN: Well perfused. Good skin turgor. ASSESSMENT: 1. Possible Gallstone pancreatitis 2. Constipation 3. Developmental delay 4. Hypokalemia 5. Suspected aspiration pneumonia PLAN: -Recommend conservative management -No surgical intervention planned -Continue antibiotics -Soapsuds enema and lactulose ordered again for today for constipation -Okay to resume tube feedings via PEG tube -Continue ICU management and supportive care -Continue GI and DVT prophylaxis Physician Customer Operations Representative note has been reviewed by physician. Signing provider agrees with the documented findings, assessment, and plan of care. Objective - Vital Signs Vital signs: Vital Signs Temp 97.5 F L 03/03/21 08:00 Pulse 91 03/03/21 11:00 Resp 27 H 03/03/21 11:00 BP 122/57 03/03/21 11:00 Pulse Ox 97 03/03/21 08:00 Intake & Output 03/02/21 03/03/21 03/03/21 18:59 06:59 18:59 Intake Total 1000 1000 350 Output Total 430 460 160 Balance 570 540 190 Weight 73.3 kg 73.1 kg 73.1 kg Intake: IV 1000 1000 350 Piperacillin-Tazobactam 3 100 200 .375 gm In Sodium Chloride 0.9% 100 ml @ 25 mls/hr IVPB Q8H [facility] Rx#: [id number] Sodium Chloride 0.45% 1, 150 000 ml @ 50 mls/hr IV . Q20H [facility] Rx#:[id number] Sodium Chloride 0.9% 1, 600 600 100 000 ml @ 50 mls/hr IV . Q20H [facility] Rx#:[id number] Valproate Sodium 500 mg 100 100 In Sodium Chloride 0.9% 100 ml @ 100 mls/hr IVPB Q12H [facility] Rx#:[id number] metroNIDAZOLE-NS PMX 500 200 100 100 mg In Saline 1 100ml.bag @ 100 mls/hr IVPB Q8HR [facility] Rx#:[id number] Output: Urine 430 460 160 Other: Voiding Method Indwelling Catheter Indwelling Catheter # Bowel Movements 1 - Labs CBC & Chem 7: 03/03/21 03:26 03/03/21 03:26 Labs: Abnormal Lab Results - Last 24 Hours (Table) 03/02/21 03/02/21 03/03/21 Range/Units 12:58 18:22 03:26 WBC 21.2 H (3.8-10.6) k/uL RBC 2.47 L (3.80-5.40) m/uL Hgb 7.3 L (11.4-16.0) gm/dL Hct 23.0 L (34.0-46.0) % RDW 17.2 H (11.5-15.5) % Plt Count 97 L (150-450) k/uL Neutrophils # 18.8 H (1.3-7.7) k/uL ABG pCO2 (35-45) mmHg ABG pO2 (83-108) mmHg ABG HCO3 (21-25) mmol/L ABG Total CO2 (19-24) mmol/L Sodium (137-145) mmol/L Potassium 3.4 L (3.5-5.1) mmol/L Chloride (98-107) mmol/L Carbon Dioxide (22-30) mmol/L BUN (7-17) mg/dL POC Glucose (mg/dL) 73 L (75-99) mg/dL AST (14-36) U/L Total Protein (6.3-8.2) g/dL Albumin (3.5-5.0) g/dL 03/03/21 03/03/21 Range/Units 03:26 09:45 WBC (3.8-10.6) k/uL RBC (3.80-5.40) m/uL Hgb (11.4-16.0) gm/dL Hct (34.0-46.0) % RDW (11.5-15.5) % Plt Count (150-450) k/uL Neutrophils # (1.3-7.7) k/uL ABG pCO2 57 H (35-45) mmHg ABG pO2 72 L (83-108) mmHg ABG HCO3 34 H (21-25) mmol/L ABG Total CO2 36 H (19-24) mmol/L Sodium 147 H (137-145) mmol/L Potassium (3.5-5.1) mmol/L Chloride 109 H (98-107) mmol/L Carbon Dioxide 31 H (22-30) mmol/L BUN 26 H (7-17) mg/dL POC Glucose (mg/dL) (75-99) mg/dL AST 49 H (14-36) U/L Total Protein 5.0 L (6.3-8.2) g/dL Albumin 2.3 L (3.5-5.0) g/dL Microbiology - Last 24 Hours (Table) 03/01/21 15:00 Urine Culture - Final Urine,Catheterized 02/28/21 15:57 Blood Culture - Preliminary Blood No Growth after 48 hours <Milagros Mayberry N - Last Filed: 03/06/21 19:55> Subjective CHIEF COMPLAINT: Abdominal distention HISTORY OF PRESENT ILLNESS: The patient is a 80-year-old female admitted with emesis including abdominal distention. She had developed aspiration pneumonia. Patient was being evaluated for gallstone pancreatitis. Patient is in the ICU. Clinical course with minimal improvement. ROS: No fevers or chills. Patient is on nonrebreather. PHYSICAL EXAM: VITAL SIGNS: Reviewed CONSTITUTIONAL: Well developed and in no acute distress. EYES: Conjuctivae without sclera icterus. Extraocular movements grossly intact. HEAD, EARS, NOSE, THROAT: Moist buccal mucosa. Head is atraumatic, normocephalic. NECK: No gross thyroidomegaly. No jugular venous distention. RESPIRATORY: Labored respirations and equal bilateral excursions. CARDIOVASCULAR: Palpable 2+ radial pulses. ABDOMEN: No peritonitis. MUSCULOSKELETAL: No gross deformity of the lower extremities noted. No clubbing. No cyanosis. SKIN: Good skin turgor. Well perfused. NEUROLOGIC: Cranial nerves II through XII grossly intact. PSYCH: Lethargic. CLINICAL LABS: White blood cell over 23,000 now over 21,000. REPORTS: Chest x-ray demonstrates patchy infiltrates. ASSESSMENT: 1. Sepsis on presentation 2. Hypertensive heart disease with congestive heart failure 3. Generalized debility 4. Abdominal distention 5. Aspiration pneumonia PLAN: 1. She has symptoms continue IV antibiotics. 2. Restart tube feeds following bowel movements Objective - Vital Signs Vital signs: Vital Signs Temp 97.5 F L 03/05/21 08:00 Pulse 73 03/05/21 11:00 Resp 28 H 03/05/21 11:00 BP 101/74 03/05/21 11:00 Pulse Ox 83 L 03/05/21 11:00 - Labs CBC & Chem 7: 03/05/21 04:05 03/05/21 04:05 Labs: Microbiology - Last 24 Hours (Table) 02/28/21 15:57 Blood Culture - Final Blood No Growth after 144 hours Assessment and Plan (1) Pancreatitis Status: Acute Code(s): K85.90 - ACUTE PANCREATITIS WITHOUT NECROSIS OR INFECTION, UNSP SNOMED Code(s): 77425070 (2) Abdominal distension Status: Acute Code(s): R14.0 - ABDOMINAL DISTENSION (GASEOUS) SNOMED Code(s): 24276803 (3) Constipation Status: Acute Code(s): K59.00 - CONSTIPATION, UNSPECIFIED SNOMED Code(s): 29832368 (4) Dysphagia Status: Acute Code(s): R13.10 - DYSPHAGIA, UNSPECIFIED SNOMED Code(s): 05444613 (5) Aspiration pneumonia Status: Acute Code(s): J69.0 - PNEUMONITIS DUE TO INHALATION OF FOOD AND VOMIT SNOMED Code(s): 708416885
--- NOTE | 2021-03-03 16:09 | P.PN ---
Subjective Progress Note Date: 03/03/21 80-year-old the female came in for coffee-ground emesis and upper GI bleed which resolved at this time patient is on Protonix. Patient does have leukocytosis and patient is also being treated for pneumonia although there is no evidence of pneumonia on the computed tomography scan, I reviewed the computed tomography scan which showed infiltrate in bilateral lower lung huynh which appears to be atelectasis patient does have highly elevated white blood cell count of 34,000 without any fever etiology of this white blood cell count is not clear this did improve with IV antibiotics that is Zosyn for now until a we find the source off infection if at all any will continued antibiotic patient lipase was also elevated and cannot get any history from the patient. Unsure whether patient had pancreatitis. Ultrasound of the abdomen did not show any gallstone. Patient is hyponatremic and aspirin were replaced patient is receiving Lasix as well as IV fluids Lasix will be discontinued. Patient had acute renal failure which improved at this time. patient has no evidence of congestive heart failure at this time. 03/02/2021 Patient continues to be obtunded and unresponsive and currently maintained on 15 L nonrebreather and continues to be closely monitored in the ICU. Pulmonary machinist class b following closely.patient continues on Flagyl and Zosyn and will continue with gentle IV hydration.potassium critically low at 2.8 and being replaced. Sodium is 142, BUN is 33 and creatinine is 0.66.white blood count slightly trending down at 23.7 and hemoglobin is 7.9. blood pressure is improved and is in the 1 teens systolic. Chest x-ray is ordered and pending.surgery also following recommending conservative management with no surgical interventions planned at this time. Soapsuds enemas and lactulose ordered with minimal output noted in the NG tube and being discontinued. Patient is continued on IV Protonix and will continue. Prognosis remains poor and CODE STATUS needs to be addressed with legal guardian. DNR is appropriate for this patient. patient will require supporting documentation to bring to court as she is developmentally delayed in order to change CODE STATUS. Case management made aware. 03/03/2021 Patient is seen in follow-up this morning minimally responsive. Patient will awake for a brief moment and fall right back asleep. Patient is continued on 15 L via nonrebreather and maintaining 96% oxygen saturation. Patient is afebrile. Chest x-ray today shows patchy infiltrates throughout both lung huynh that persist and unchanged. Patient is continued on tube feeds and sodium found to be mildly elevated at 147 and will add free water flushes. Patient did receive potassium replacement yesterday and repeat potassium is 3.8 this morning. BUN is 26 with a creatinine of 0.62. White blood count mildly trending down at 21.2 and hemoglobin is 7.3. Patient did have NG tube removed and there is been no further emesis noted. Patient was also given an enema and continued on lactulose and did have a bowel movement and abdomen is softer on palpation. REVIEW OF SYSTEMS: Unable to obtain due to her clinical condition Active Medications Albuterol/Ipratropium (Ipratropium-Albuterol 3 Ml Neb) 3 ml INHALATION RT-TID [facility] Last Admin: 03/03/21 11:51 Dose: Not Given Documented by: Albuterol/Ipratropium (Ipratropium-Albuterol 3 Ml Neb) 3 ml INHALATION RT-TID PRN PRN Reason: Shortness Of Breath Or Wheezing Apixaban (Apixaban 2.5 Mg Tablet) 2.5 mg PEG/G-TUBE BID@0800,1999 [facility]; Protocol Last Admin: 03/03/21 08:35 Dose: 2.5 mg Documented by: Docusate Sodium (Docusate Oral Soln 100 Mg/10 Ml Cup) 100 mg PO BID [facility] Last Admin: 03/03/21 08:44 Dose: 100 mg Documented by: Hydromorphone HCl (Hydromorphone 0.5 Mg/0.5 Ml Syringe) 0.5 mg IVP Q6HR PRN PRN Reason: Severe Pain Metronidazole 500 mg/ IV (Solution) 100 mls @ 100 mls/hr IVPB Q8HR [facility] Last Admin: 03/03/21 08:36 Dose: 100 mls/hr Documented by: Piperacillin Sod/Tazobactam (Sod 3.375 gm/ Sodium Chloride) 100 mls @ 25 mls/hr IVPB Q8H [facility] Last Admin: 03/03/21 13:46 Dose: 25 mls/hr Documented by: Valproic Acid 500 mg/ Sodium (Chloride) 105 mls @ 100 mls/hr IVPB Q12H [facility] Last Admin: 03/03/21 14:58 Dose: 100 mls/hr Documented by: Sodium Chloride (Saline 0.45%) 1,000 mls @ 50 mls/hr IV .Q20H ONE Stop: 03/04/21 04:46 Last Admin: 03/03/21 08:47 Dose: 50 mls/hr Documented by: Latanoprost (Latanoprost 0.005% Ophth Drops 2.5 Ml Btl) 1 drops BOTH EYES HS@1999 [facility] Last Admin: 03/02/21 20:48 Dose: 1 drops Documented by: Levetiracetam (Levetiracetam 500 Mg Tab) 500 mg PEG/G-TUBE BID@ [facility] Last Admin: 03/03/21 08:36 Dose: 500 mg Documented by: Levothyroxine Sodium (Levothyroxine 100 Mcg Tab) 100 mcg PEG/G-TUBE DAILY@599 [facility] Last Admin: 03/03/21 05:50 Dose: 100 mcg Documented by: Levothyroxine Sodium (Levothyroxine 75 Mcg Tab) 75 mcg PEG/G-TUBE DAILY@599 [facility] Last Admin: 03/03/21 05:50 Dose: 75 mcg Documented by: Miscellaneous Information (Pneumonia Protocol Utilized 1 Each Misc) 1 each PO ONCE PRN PRN Reason: Per Protocol Miscellaneous Information (Magnesium Replacement Protocol 1 Each Misc) 1 each MISCELLANE DAILY PRN; Protocol PRN Reason: Per Protocol Miscellaneous Information (Potassium Replacement Protocol 1 Each Misc) 1 each MISCELLANE DAILY PRN; Protocol PRN Reason: Per Protocol Ondansetron HCl (Ondansetron 4 Mg/2 Ml Vial) 4 mg IVP Q6HR PRN PRN Reason: Nausea And Vomiting Last Admin: 02/28/21 07:51 Dose: 4 mg Documented by: Pantoprazole Sodium (Pantoprazole 40 Mg/10 Ml Vial) 40 mg IVP BID [facility] Last Admin: 03/03/21 08:37 Dose: 40 mg Documented by: Risperidone (Risperidone 1 Mg Tab) 1 mg PEG/G-TUBE BID@ [facility] Last Admin: 03/03/21 08:35 Dose: 1 mg Documented by: PHYSICAL EXAMINATION: GENERAL: Patient is sleeping and unresponsive and obtunded unable to answer any questions, chronic contractures noted on exam as well HEENT: Pupils are round and equally reacting to light. EOMI. No scleral icterus. No conjunctival pallor. Normocephalic, atraumatic. No pharyngeal erythema. No thyromegaly. CARDIOVASCULAR: S1 and S2 present. No murmurs, rubs, or gallops. PULMONARY: diminished breath sounds bilaterally with some upper tracheal gurgling noted no wheezing or rhonchi on exam ABDOMEN: Soft, nontender, no mass noted MUSCULOSKELETAL: No joint swelling or deformity. EXTREMITIES: No cyanosis, clubbing, or pedal edema. NEUROLOGICAL: Patient is not following commands unable to assess. Obtunded SKIN: No rashes. Assessment and plan: -Acute upper GI bleed probably peptic ulcer disease patient will be continued on Protonix, no further episodes of emesis or coffee-ground emesis noted an NG tube has been removed -Possibly pancreatitis etiology is not clear no gallstone on the ultrasound -Leukocytosis may be secondary to upper GI bleed or pancreatitis -Atelectasis bilateral -acute hypoxic respiratory failure requiring 15 L nonrebreather possibly secondary to aspiration pneumonia, continue supplemental oxygen support and wean as tolerated and patient is maintained on Flagyl and Zosyn -Hypervolemic hyponatremia improved -Hypernatremia, patient is on 0.45 normal saline and will increase free water flushes and repeat labs -Acute renal failure prerenal azotemia secondary to intravascular depletion and dehydration improved with IV fluids -Lactic acidosis secondary to intravascular depletion no clear evidence of sepsis at this time -History of atrial fibrillation -Dementia -Hypertension -Hyperlipidemia -Seizure disorder for which patient is on valproic acid via IV and Keppra via PEG tube -Hypothyroidism -Schizoaffective disorder -Hypokalemia natriuretic hypokalemia, improved and is 3.8 today -DVT prophylaxis: SCDs Objective - Vital Signs Vital signs: Vital Signs Temp 97.6 F 03/03/21 04:00 Pulse 87 03/03/21 07:00 Resp 24 03/03/21 07:00 BP 120/52 03/03/21 07:00 Pulse Ox 96 03/03/21 07:00 Intake & Output 03/02/21 03/03/21 03/03/21 18:59 06:59 18:59 Intake Total 1000 1000 50 Output Total 430 460 30 Balance 570 540 20 Weight 73.3 kg 73.1 kg 73.1 kg Intake: IV 1000 1000 50 Piperacillin-Tazobactam 3 100 200 .375 gm In Sodium Chloride 0.9% 100 ml @ 25 mls/hr IVPB Q8H [facility] Rx#: [id number] Sodium Chloride 0.9% 1, 600 600 50 000 ml @ 50 mls/hr IV . Q20H [facility] Rx#:[id number] Valproate Sodium 500 mg 100 100 In Sodium Chloride 0.9% 100 ml @ 100 mls/hr IVPB Q12H [facility] Rx#:[id number] metroNIDAZOLE-NS PMX 500 200 100 mg In Saline 1 100ml.bag @ 100 mls/hr IVPB Q8HR [facility] Rx#:[id number] Output: Urine 430 460 30 Other: Voiding Method Indwelling Catheter Indwelling Catheter # Bowel Movements 1 - Labs CBC & Chem 7: 03/03/21 03:26 03/03/21 03:26 Labs: Abnormal Lab Results - Last 24 Hours (Table) 03/02/21 03/02/21 03/03/21 Range/Units 12:58 18:22 03:26 WBC 21.2 H (3.8-10.6) k/uL RBC 2.47 L (3.80-5.40) m/uL Hgb 7.3 L (11.4-16.0) gm/dL Hct 23.0 L (34.0-46.0) % RDW 17.2 H (11.5-15.5) % Plt Count 97 L (150-450) k/uL Neutrophils # 18.8 H (1.3-7.7) k/uL Sodium (137-145) mmol/L Potassium 3.4 L (3.5-5.1) mmol/L Chloride (98-107) mmol/L Carbon Dioxide (22-30) mmol/L BUN (7-17) mg/dL POC Glucose (mg/dL) 73 L (75-99) mg/dL AST (14-36) U/L Total Protein (6.3-8.2) g/dL Albumin (3.5-5.0) g/dL 03/03/21 Range/Units 03:26 WBC (3.8-10.6) k/uL RBC (3.80-5.40) m/uL Hgb (11.4-16.0) gm/dL Hct (34.0-46.0) % RDW (11.5-15.5) % Plt Count (150-450) k/uL Neutrophils # (1.3-7.7) k/uL Sodium 147 H (137-145) mmol/L Potassium (3.5-5.1) mmol/L Chloride 109 H (98-107) mmol/L Carbon Dioxide 31 H (22-30) mmol/L BUN 26 H (7-17) mg/dL POC Glucose (mg/dL) (75-99) mg/dL AST 49 H (14-36) U/L Total Protein 5.0 L (6.3-8.2) g/dL Albumin 2.3 L (3.5-5.0) g/dL Microbiology - Last 24 Hours (Table) 03/01/21 15:00 Urine Culture - Final Urine,Catheterized 02/28/21 15:57 Blood Culture - Preliminary Blood No Growth after 48 hours
[2021-03-03] MEDS: LATANOPROST 0.005% OPHTH DROPS 2.5 ML BTL BOTH EYES SCH (20:21)
[2021-03-04] LABS: Glucose,Whole Blood 98 mg/dL (75-99)
[2021-03-04] MEDS: metroNIDAZOLE-NS PMX 500 MG in SALINE 1 100ML.BAG IVPB SCH ×3 (00:44→15:25)
[2021-03-04] MEDS: VALPROATE SODIUM 500 MG in SODIUM CHLORIDE 0.9% 100 ML IVPB SCH ×2 (02:25→16:34)
[2021-03-04 04:10] LABS: Anisocytosis Slight; Basophils # (A) 0.1 k/uL (0-0.2); Basophils % (A) 0 %; Eosinophils # (A) 0.3 k/uL (0-0.7); Eosinophils % (A) 2 %; HCT 23.2 % (34.0-46.0); Hypochromasia Marked; Lymphocytes # (A) 1.5 k/uL (1.0-4.8); Lymphocytes % (A) 7 %; MCH 29.5 pg (25.0-35.0); MCHC 30.3 g/dL (31.0-37.0); MCV 97.5 fL (80.0-100.0); Macrocytosis Slight; Monocytes # (A) 0.7 k/uL (0-1.0); Monocytes % (A) 4 %; Neutrophils # (A) 17.2 k/uL (1.3-7.7); Neutrophils % (A) 86 %; RBC 2.37 m/uL (3.80-5.40); WBC 19.9 k/uL (3.8-10.6)
[2021-03-04 04:11] LABS: Platelet Count 74 k/uL (150-450)
[2021-03-04 04:28] LABS: African American GFR (CKD) >90 (>60 ml/min/1.73 sqM); Anion Gap 7 mmol/L; Blood Urea Nitrogen 21 mg/dL (7-17); Calcium 8.2 mg/dL (8.4-10.2); Carbon Dioxide 31 mmol/L (22-30); Chloride 106 mmol/L (98-107); Glucose 88 mg/dL (74-99); Non-African American GFR(CKD) >90 (>60 ml/min/1.73 sqM); Potassium 3.6 mmol/L (3.5-5.1); Sodium 144 mmol/L (137-145)
[2021-03-04] MEDS ORDERED: POTASSIUM BICARBONATE/CIT AC 20 MEQ TABLET.EFF NG-TUBE SCH (05:00)
[2021-03-04] MEDS: PIPERACILLIN-TAZOBACTAM 3.375 GM in SODIUM CHLORIDE 0.9% 100 ML IVPB SCH ×3 (05:05→20:08)
[2021-03-04] MEDS: LEVOTHYROXINE 100 MCG TAB PEG/G-TUBE SCH (05:06)
[2021-03-04] MEDS: LEVOTHYROXINE 75 MCG TAB PEG/G-TUBE SCH (05:06)
[2021-03-04] MEDS: IPRATROPIUM-ALBUTEROL 3 ML NEB INHALATION SCH ×3 (07:17→20:51)
--- NOTE | 2021-03-04 08:13 | P.PN ---
Subjective Progress Note Date: 03/04/21 On today's evaluation of 02/22/2021, the patient is currently in the intensive care unit. The patient is being monitored very closely as the patient had acute hypoxic respiratory failure, constipation, abdominal distention and a component of pancreatitis and for that reason she was hospitalized yesterday. Currently she doesn't 100% nonrebreather facemask. Chest x-ray from today still in progress. She has a congested cough. Her breathing is mildly labored. She is also mildly tachypneic. NG tube is in place and output is minimal at this point in time. Abdomen is still slightly distended. No direct tenderness. No rebound or tenderness. No guarding. Bowel sounds are hypoactive. White cell count is 23.7 with a hemoglobin of 7.9 and a platelet count of 99,000. The rest of the blood work and electrolytes show hypokalemia which is being replaced with a potassium level of 2.8. Normal renal function. The liver function tests are essentially normal. Albumin is at 2.4 with a protein of 5.1. Urine analysis was essentially negative. She remains on a combination of Zosyn and Flagyl. G eneral surgeries on the case. She was given lactulose in the emergency department. We have not encountered any bowel activity yet. I'm not sure whether she completed the soapsuds enema yesterday that was ordered in the emergency department. Ultrasound of the gallbladder was also completed and it showed no significant abnormalities and was a limited study because of her body habitus. Nevertheless, the gallbladder wall was not thickened and the common bile duct was only at 4 mm and there was no stones within the goal bladder.-pack-years was also secured. 03/03/2021, and seeing this patient for a follow-up. She is quite lethargic and not interactive and nonresponsive which is not unusual for her whenever she gets sick. I'm suspecting an aspiration pneumonia. The patient has diffuse b ilateral pulmonary infiltrates. She is currently on 100% nonrebreather facemask. Her coughing is less and her breathing is less labored compared to yesterday. Her pulse ox is currently around 96%. No signs of any fluid overload knowing that she has an aortic stenosis. IV fluids are running in the form of normal saline at the rate of 50 mL an hour. She is afebrile. She is hemodynamic is stable. Efforts to improve her bowel mobility and constipation included a soapsuds enema yesterday, Colace and lactulose. Her abdomen is less distended today. No direct tenderness. No rebound tenderness. No guarding or guarding. The patient also had a small bowel movement. Surgical team decided t o proceed with she'll feeds through the PEG tube with a lower rate. NG tube is removed. Meanwhile, the patient is on broad-spectrum antibiotics and she is currently on Zosyn and Flagyl. The white cell count of 21.2 which is lower compared to yesterday. Hemoglobin stable at 7.3, slightly lower compared to yesterday, platelet count is at 97. Sodium level is at 147 and I think it's reasonable to give her some free water through the PEG tube. BUN is 26 with a creatinine of 0.6. Amylase and lipase were also dropping. No other significant events. She is afebrile. She is hemodynamically stable. 03/04/2021, the patient is being seen for a follow-up. She remains very much lethargic and she is not communicating at this point in time. 200% on a beta facemasks with a pulse ox of 92%. Reading is slightly labored. Chest x-ray remains unchanged with diffuse bilateral pulmonary infiltrates and cardiomegaly. As stated earlier this is a case of severe aortic stenosis. She was also havin g issues with aspiration and constipation. Terms of the constipation, the patient underwent manual disimpaction addition to several enemas given to her and she was placed on Colace. She did have some bowel movement activity and the patient is currently on enteral feeding for nutritional support and she is back on vital AF at the rate of 30 mL an hour. In terms of her electrolytes, her sodium level is down to 144 and the patient is receiving free water through her PEG tube. NG tube has been removed. Hemodynamically she is stable. The white cell count is down to 19. Renal function stable. Hemoglobin is down to 7. BUN is at 21 with a creatinine of 0.5. Atelectatic discussion with the caregiver. Contacted the caregiver and discussed with her the case. Unfortunately performance and functional status is extremely poor. We are working on changing her CODE STATUS to DNR/DNI and we are working with a public guardian. Objective - Vital Signs Vital signs: Vital Signs Temp 97.6 F 03/04/21 04:00 Pulse 191 H 03/04/21 07:26 Resp 26 H 03/04/21 07:00 BP 113/61 03/04/21 07:00 Pulse Ox 93 L 03/04/21 07:00 Intake & Output 03/03/21 03/04/21 03/04/21 18:59 06:59 18:59 Intake Total 1000 2040 80 Output Total 395 350 30 Balance 605 1690 50 Weight 73.1 kg 74.2 kg Intake: IV 1000 1000 50 Piperacillin-Tazobactam 3 200 200 .375 gm In Sodium Chloride 0.9% 100 ml @ 25 mls/hr IVPB Q8H [facility] Rx#: [id number] Sodium Chloride 0.45% 1, 500 600 50 000 ml @ 50 mls/hr IV . Q20H [facility] Rx#:[id number] Sodium Chloride 0.9% 1, 100 000 ml @ 50 mls/hr IV . Q20H [facility] Rx#:[id number] Valproate Sodium 500 mg 100 In Sodium Chloride 0.9% 100 ml @ 100 mls/hr IVPB Q12H [facility] Rx#:[id number] metroNIDAZOLE-NS PMX 500 200 100 mg In Saline 1 100ml.bag @ 100 mls/hr IVPB Q8HR [facility] Rx#:[id number] Tube Feeding 290 30 Other 750 Output: Urine 395 350 30 Other: Voiding Method Indwelling Catheter Indwelling Catheter # Bowel Movements 1 - Exam Calm and comfortable, the patient is resting , very lethargic yet arousable. She is currently on 100% on a NRB facemask. Head exam was generally normal. There was no scleral icterus or corneal arcus. Mucous membranes were moist. Neck was supple and without jugular venous distension, thyromegaly, or carotid bruits. Carotids were easily palpable bilaterally. There was no adenopathy. Orogastric and aortic tube are both in place. Lungs are diminished and the patient is on obvious thoracic and thoracolumbar kyphoscoliosis with cervical kyphosis. Rest of the equal and symmetrical. No wheezes or rhonchi. Cardiac exam revealed the PMI to be normally situated and sized. The rhythm was regular and no extrasystoles were noted during several minutes of auscultation. The first and second heart sounds were normal and physiologic splitting of the second heart sound was noted. There were systolic ejection murmur consistent with aortic stenosis , rubs, clicks, or gallops. Abdominal exam revealed normal bowel sounds. The abdomen was soft, non-tender, and without masses, however is slightly distended and the bowel sounds are hy poactive, organomegaly, or appreciable enlargement of the abdominal aorta. The patient is a PEG tube in place and the PEG tube site is dry clean and intact and there is no direct tenderness or rebound tensile guarding. Bowel sounds are hypoactive at the present Examination of the extremities revealed easily palpable radial, femoral and pedal pulses. There was no cyanosis, clubbing or edema. Examination of the skin revealed no evidence of significant rashes, suspicious appearing nevi or other concerning lesions. 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 Neurologically the patient is following some simple commands. No focal neurological deficit. - Labs CBC & Chem 7: 03/04/21 03:40 03/04/21 03:40 Labs: Abnormal Lab Results - Last 24 Hours (Table) 03/03/21 03/04/21 03/04/21 Range/Units 09:45 03:40 03:40 WBC 19.9 H (3.8-10.6) k/uL RBC 2.37 L (3.80-5.40) m/uL Hgb 7.0 L (11.4-16.0) gm/dL Hct 23.2 L (34.0-46.0) % MCHC 30.3 L (31.0-37.0) g/dL RDW 17.0 H (11.5-15.5) % Plt Count 74 L (150-450) k/uL Neutrophils # 17.2 H (1.3-7.7) k/uL ABG pCO2 57 H (35-45) mmHg ABG pO2 72 L (83-108) mmHg ABG HCO3 34 H (21-25) mmol/L ABG Total CO2 36 H (19-24) mmol/L Carbon Dioxide 31 H (22-30) mmol/L BUN 21 H (7-17) mg/dL Creatinine 0.50 L (0.52-1.04) mg/dL Calcium 8.2 L (8.4-10.2) mg/dL Microbiology - Last 24 Hours (Table) 02/28/21 15:57 Blood Culture - Preliminary Blood No Growth after 72 hours Assessment and Plan Plan: 1 abdominal distention currently under investigation. Rule out constipation. There may be also mild component of gallstone pancreatitis. LFTs are normal. Amylase and lipase were slightly elevated, improving. No evidence of any bowel obstruction or ileus at this point in time. The patient's nothing by mouth. The NG tube has been removed. The patient received manual disimpaction and she is currently on laxatives. She also receiving free water through her PEG tube. NG tube was removed. 2 acute hypoxic respiratory failure, consider aspiration, consider aspiration pneumonia. Note that there may be also a component of pulmonary edema secondary to valvular heart disease. We'll start the patient on diuretics. 3 previous history of pneumonias secondary to pseudomonas aeruginosa during earlier hospitalizations, currently on Zosyn and Flagyl 4 acute leukocytosis, currently under investigation, consider underlying sepsis, white count is stable, slightly lower compared to yesterday's down to 19 5 acute kidney injury, improving and the creatinine is down to 0.7 6 history of seizure activity maintained on combination of antiepileptic medication on outpatient basis 7 dementia 8 developmental delay 9 parkinsonian features 10. Depression disorder 11 moderate degree of aortic stenosis with a harsh cardiac murmur as noted on physical examination. Please echocardiac Gab showing an ejection fraction of 55% with moderate degree of pulmonary hypertension 12 stage IV left buttocks ulcers post-debridement without evidence of any acute infection. 13 esophageal stricture and the patient has a PEG tube in place for enteral feeding and nutritional support 14 abnormal gait due to our concern is and then dementia and the patient is wheelchair-bound and the patient has a caregiver at all 15 paroxysmal atrial fibrillation current rhythm is sinus 16 hypertension 17 hyperlipidemia 18 previous history of pneumonia and respiratory failure requiring prolonged hospitalization mechanical ventilation 19 history of recurrent UTIs, urine cultures is indicating Pseudomonas , currently on IV cefepime 20 hypothyroidism 21 obstructive sleep apnea with an AHI of 78 maintained on a Pap on outpatient basis Plan Keep the patient 100% nonrebreather facemask and watch for any signs of aspiration Continue Zosyn and Flagyl Keep the free water through her PEG Add lactulose 30 ML's twice a day Continue with enteral feeding and nutritional support via PEG tube Started patient on Lasix 40 mg IV every 12 hours BiPAP if needed should there be a decompensation of her breathing Sodium level is improved Monitor the patient abdominal status and watch for any further distention No pressors for now Continued antiepileptic medications Watch for any signs of fluid overload We are working with the public guardian to change her CODE STATUS to DNR/DNI at least.
[2021-03-04] MEDS: levETIRAcetam 500 MG TAB PEG/G-TUBE SCH ×2 (08:29→21:21)
[2021-03-04] MEDS: APIXABAN 2.5 MG TABLET PEG/G-TUBE SCH ×2 (08:29→21:20)
[2021-03-04] MEDS: LACTULOSE 20 GM/30 ML CUP PO SCH ×2 (08:30→21:21)
[2021-03-04] MEDS: FUROSEMIDE 10 MG/ML 2 ML VIAL IV SCH ×2 (08:30→21:21)
[2021-03-04] MEDS: risperiDONE 1 MG TAB PEG/G-TUBE SCH ×2 (08:30→21:21)
[2021-03-04] MEDS: PANTOPRAZOLE 40 MG/10 ML VIAL IVP SCH ×2 (08:31→21:21)
--- NOTE | 2021-03-04 10:30 | XR ---
EXAMINATION TYPE: XR chest 1V portable DATE OF EXAM: 03/04/2021 Comparison: 03/03/2021 Clinical History: 80-year-old female r/o fluid overload Findings: Patient is rotated toward the left. Patient's chin obscures the extreme left apex. Bilateral patchy c onfluent consolidation persists, relatively sparing the left upper lobe. Impression: Rotated exam. Continued extensive bilateral airspace disease, right greater than left, without signif icant change.
--- NOTE | 2021-03-04 10:50 | P.PN ---
<Adriane Albright - Last Filed: 03/04/21 12:04> Subjective Progress Note Date: 03/04/21 CHIEF COMPLAINT: Abdominal pain HISTORY OF PRESENT ILLNESS: This is 80-year-old female who presented with abdom inal pain and evidence of gallstone pancreatitis. Patient had initially presented having nausea and vomiting. She was found to have an elevation in her lipase and amylase. There were gallstones evident on CAT scan as well as constipation. Her abdominal ultrasound had showed no evidence of gallstones. Patient currently remains in the ICU. She is requiring nonrebreather. She remains lethargic, difficult to arouse. Patient reportedly had 2 bowel movements yesterday and was disimpacted per nursing. Nursing is reporting no evidence of GI bleed. No melena or hematochezia. Patient has not had any further nausea or vomiting. Patient is afebrile. Tube feedings are currently at 30 mL per hour and patient is tolerating well. Lactulose has been changed to 30 g by mouth twice a day. WBC 19.9 hemoglobin 7.0 platelet count 74,000 PHYSICAL EXAM: VITAL SIGNS: Reviewed GENERAL: Well-developed in no acute distress. HEENT: No sclera icterus. Extraocular movements grossly intact. Moist buccal mucosa. Head is atraumatic, normocephalic. Hears conversational speech. No nasal drainage. NECK: Supple without lymphadenopathy. CHEST: Non-labored respirations and equal bilateral excursions. CARDIOVASCULAR: Palpable 2+ radial pulses. ABDOMEN: Soft. Nondistended. PEG tube intact. MUSCULOSKELETAL: No clubbing or cyanosis. NEUROLOGIC: Lethargic. PSYCH: Appropriate affect. Alert with stimuli. SKIN: Well perfused. Good skin turgor. ASSESSMENT: 1. Possible gallstone pancreatitis 2. Constipation 3. Developmental delay 4. Hypokalemia 5. Suspected aspiration pneumonia PLAN: -Recommend conservative management -No surgical intervention planned -Continue antibiotics -Continue lactulose as ordered -Continue tube feedings via PEG tube -Continue ICU management and supportive care -Continue GI and DVT prophylaxis The impression and plan of care has been dictated as directed. Dr. Mayberry I performed a history and examination of this patient, discussed the same with the dictator. I agree with the dictator's note ,documented as a scribe. Any additional findings or plans will be noted. Objective - Vital Signs Vital signs: Vital Signs Temp 97.6 F 03/04/21 04:00 Pulse 191 H 03/04/21 07:26 Resp 26 H 03/04/21 07:00 BP 113/61 03/04/21 07:00 Pulse Ox 93 L 03/04/21 07:00 Intake & Output 03/03/21 03/04/21 03/04/21 18:59 06:59 18:59 Intake Total 1000 2040 80 Output Total 395 350 30 Balance 605 1690 50 Weight 73.1 kg 74.2 kg Intake: IV 1000 1000 50 Piperacillin-Tazobactam 3 200 200 .375 gm In Sodium Chloride 0.9% 100 ml @ 25 mls/hr IVPB Q8H [facility] Rx#: [id number] Sodium Chloride 0.45% 1, 500 600 50 000 ml @ 50 mls/hr IV . Q20H [facility] Rx#:[id number] Sodium Chloride 0.9% 1, 100 000 ml @ 50 mls/hr IV . Q20H [facility] Rx#:[id number] Valproate Sodium 500 mg 100 In Sodium Chloride 0.9% 100 ml @ 100 mls/hr IVPB Q12H [facility] Rx#:[id number] metroNIDAZOLE-NS PMX 500 200 100 mg In Saline 1 100ml.bag @ 100 mls/hr IVPB Q8HR [facility] Rx#:[id number] Tube Feeding 290 30 Other 750 Output: Urine 395 350 30 Other: Voiding Method Indwelling Catheter Indwelling Catheter # Bowel Movements 1 - Labs CBC & Chem 7: 03/04/21 03:40 03/04/21 03:40 Labs: Abnormal Lab Results - Last 24 Hours (Table) 03/04/21 03/04/21 Range/Units 03:40 03:40 WBC 19.9 H (3.8-10.6) k/uL RBC 2.37 L (3.80-5.40) m/uL Hgb 7.0 L (11.4-16.0) gm/dL Hct 23.2 L (34.0-46.0) % MCHC 30.3 L (31.0-37.0) g/dL RDW 17.0 H (11.5-15.5) % Plt Count 74 L (150-450) k/uL Neutrophils # 17.2 H (1.3-7.7) k/uL Carbon Dioxide 31 H (22-30) mmol/L BUN 21 H (7-17) mg/dL Creatinine 0.50 L (0.52-1.04) mg/dL Calcium 8.2 L (8.4-10.2) mg/dL Microbiology - Last 24 Hours (Table) 02/28/21 15:57 Blood Culture - Preliminary Blood No Growth after 72 hours <ShawandaMilagros cheung N - Last Filed: 03/06/21 19:59> Subjective CHIEF COMPLAINT: Abdominal distention HISTORY OF PRESENT ILLNESS: The patient is a 80-year-old female admitted for nausea vomiting and abdominal distention. She had a bowel movement. She is clinically improving. ROS: No fevers or chills. No acute chest pain. PHYSICAL EXAM: VITAL SIGNS: Reviewed CONSTITUTIONAL: Well developed and in no acute distress. EYES: Conjuctivae without sclera icterus. Extraocular movements grossly intact. HEAD, EARS, NOSE, THROAT: Moist buccal mucosa. Head is atraumatic, normocephalic. NECK: No gross thyroidomegaly. No jugular venous distention. RESPIRATORY: Labored respirations and equal bilateral excursions. CARDIOVASCULAR: Palpable 2+ radial pulses. ABDOMEN: No peritonitis. Less distention. MUSCULOSKELETAL: No gross deformity of the lower extremities noted. No clubbing. No cyanosis. SKIN: Good skin turgor. Well perfused. NEUROLOGIC: Cranial nerves II through XII grossly intact. PSYCH: Lethargic. CLINICAL LABS: White blood cell over 21,000 down to 19,000. REPORTS: Chest x-ray demonstrated extensive consolidation of bilateral lungs ASSESSMENT: 1. Sepsis on presentation 2. Hypertensive heart disease with congestive heart failure 3. Generalized debility 4. Abdominal distention 5. Aspiration pneumonia PLAN: 1. Continue IV antibiotics. 2. May start tube feeds. Objective - Vital Signs Vital signs: Vital Signs Temp 97.5 F L 03/05/21 08:00 Pulse 73 03/05/21 11:00 Resp 28 H 03/05/21 11:00 BP 101/74 03/05/21 11:00 Pulse Ox 83 L 03/05/21 11:00 - Labs CBC & Chem 7: 03/05/21 04:05 03/05/21 04:05 Labs: Microbiology - Last 24 Hours (Table) 02/28/21 15:57 Blood Culture - Final Blood No Growth after 144 hours Assessment and Plan (1) Pancreatitis Status: Acute Code(s): K85.90 - ACUTE PANCREATITIS WITHOUT NECROSIS OR INFECTION, UNSP SNOMED Code(s): 99911270 (2) Abdominal distension Status: Acute Code(s): R14.0 - ABDOMINAL DISTENSION (GASEOUS) SNOMED Code(s): 22292438 (3) Constipation Status: Acute Code(s): K59.00 - CONSTIPATION, UNSPECIFIED SNOMED Code(s): 68422607 (4) Dysphagia Status: Acute Code(s): R13.10 - DYSPHAGIA, UNSPECIFIED SNOMED Code(s): 34037547 (5) Aspiration pneumonia Status: Acute Code(s): J69.0 - PNEUMONITIS DUE TO INHALATION OF FOOD AND VOMIT SNOMED Code(s): 769118583
--- NOTE | 2021-03-04 15:21 | P.PN ---
Subjective Progress Note Date: 03/04/21 80-year-old the female came in for coffee-ground emesis and upper GI bleed which resolved at this time patient is on Protonix. Patient does have leukocytosis and patient is also being treated for pneumonia although there is no evidence of pneumonia on the computed tomography scan, I reviewed the computed tomography scan which showed infiltrate in bilateral lower lung huynh which appears to be atelectasis patient does have highly elevated white blood cell count of 34,000 without any fever etiology of this white blood cell count is not clear this did improve with IV antibiotics that is Zosyn for now until a we find the source off infection if at all any will continued antibiotic patient lipase was also elevated and cannot get any history from the patient. Unsure whether patient had pancreatitis. Ultrasound of the abdomen did not show any gallstone. Patient is hyponatremic and aspirin were replaced patient is receiving Lasix as well as IV fluids Lasix will be discontinued. Patient had acute renal failure which improved at this time. patient has no evidence of congestive heart failure at this time. 03/02/2021 Patient continues to be obtunded and unresponsive and currently maintained on 15 L nonrebreather and continues to be closely monitored in the ICU. Pulmonary drop clipper following closely.patient continues on Flagyl and Zosyn and will continue with gentle IV hydration.potassium critically low at 2.8 and being replaced. Sodium is 142, BUN is 33 and creatinine is 0.66.white blood count slightly trending down at 23.7 and hemoglobin is 7.9. blood pressure is improved and is in the 1 teens systolic. Chest x-ray is ordered and pending.surgery also following recommending conservative management with no surgical interventions planned at this time. Soapsuds enemas and lactulose ordered with minimal output noted in the NG tube and being discontinued. Patient is continued on IV Protonix and will continue. Prognosis remains poor and CODE STATUS needs to be addressed with legal guardian. DNR is appropriate for this patient. patient will require supporting documentation to bring to court as she is developmentally delayed in order to change CODE STATUS. Case management made aware. 03/03/2021 Patient is seen in follow-up this morning minimally responsive. Patient will awake for a brief moment and fall right back asleep. Patient is continued on 15 L via nonrebreather and maintaining 96% oxygen saturation. Patient is afebrile. Chest x-ray today shows patchy infiltrates throughout both lung huynh that persist and unchanged. Patient is continued on tube feeds and sodium found to be mildly elevated at 147 and will add free water flushes. Patient did receive potassium replacement yesterday and repeat potassium is 3.8 this morning. BUN is 26 with a creatinine of 0.62. White blood count mildly trending down at 21.2 and hemoglobin is 7.3. Patient did have NG tube removed and there is been no further emesis noted. Patient was also given an enema and continued on lactulose and did have a bowel movement and abdomen is softer on palpation. 03/04/2021 Patient is seen and evaluated in follow-up continues to be closely monitored in the ICU. Patient continues on nonrebreather 15 L with oxygen saturations of 97 and 98%. Patient was given lactulose and enema with reported 2 bowel movements and no blood noted no further bleeding noted. Hemoglobin is 7.0. Blood count trending down and 19.9. Sodium is 144 with a potassium of 3.6 and currently creatinine is 0.50. Patient is tolerating tube feeds. Legal guardian going to court in the morning to have CODE STATUS changed to no code. Patient is a resident at [facility] in case management and social work following. Chest x-ray today shows continued extensive bilateral airspace disease right greater than left without significant change from previous. IV fluids discontinued and patient was given a dose of K-Lyte for the potassium of 3.6. Pulmonary and surgery following closely. REVIEW OF SYSTEMS: Unable to obtain due to her clinical condition Active Medications Albuterol/Ipratropium (Ipratropium-Albuterol 3 Ml Neb) 3 ml INHALATION RT-TID [facility] Last Admin: 03/04/21 12:17 Dose: 3 ml Documented by: Albuterol/Ipratropium (Ipratropium-Albuterol 3 Ml Neb) 3 ml INHALATION RT-TID PRN PRN Reason: Shortness Of Breath Or Wheezing Apixaban (Apixaban 2.5 Mg Tablet) 2.5 mg PEG/G-TUBE BID@0800,1999 [facility]; Protocol Last Admin: 03/04/21 08:29 Dose: 2.5 mg Documented by: Furosemide (Furosemide 10 Mg/Ml 2 Ml Vial) 20 mg IV Q12HR [facility] Last Admin: 03/04/21 08:30 Dose: 20 mg Documented by: Hydromorphone HCl (Hydromorphone 0.5 Mg/0.5 Ml Syringe) 0.5 mg IVP Q6HR PRN PRN Reason: Severe Pain Metronidazole 500 mg/ IV (Solution) 100 mls @ 100 mls/hr IVPB Q8HR [facility] Last Admin: 03/04/21 08:29 Dose: 100 mls/hr Documented by: Piperacillin Sod/Tazobactam (Sod 3.375 gm/ Sodium Chloride) 100 mls @ 25 mls/hr IVPB Q8H [facility] Last Admin: 03/04/21 05:05 Dose: 25 mls/hr Documented by: Valproic Acid 500 mg/ Sodium (Chloride) 105 mls @ 100 mls/hr IVPB Q12H [facility] Last Admin: 03/04/21 02:25 Dose: 100 mls/hr Documented by: Lactulose (Lactulose 20 Gm/30 Ml Cup) 30 gm PO BID [facility] Last Admin: 03/04/21 08:30 Dose: 30 gm Documented by: Latanoprost (Latanoprost 0.005% Ophth Drops 2.5 Ml Btl) 1 drops BOTH EYES HS@1999 [facility] Last Admin: 03/03/21 20:21 Dose: 1 drops Documented by: Levetiracetam (Levetiracetam 500 Mg Tab) 500 mg PEG/G-TUBE BID@799,1999 [facility] Last Admin: 03/04/21 08:29 Dose: 500 mg Documented by: Levothyroxine Sodium (Levothyroxine 100 Mcg Tab) 100 mcg PEG/G-TUBE DAILY@0600 [facility] Last Admin: 03/04/21 05:06 Dose: 100 mcg Documented by: Levothyroxine Sodium (Levothyroxine 75 Mcg Tab) 75 mcg PEG/G-TUBE DAILY@0600 [facility] Last Admin: 03/04/21 05:06 Dose: 75 mcg Documented by: Miscellaneous Information (Pneumonia Protocol Utilized 1 Each Misc) 1 each PO ONCE PRN PRN Reason: Per Protocol Miscellaneous Information (Magnesium Replacement Protocol 1 Each Misc) 1 each MISCELLANE DAILY PRN; Protocol PRN Reason: Per Protocol Miscellaneous Information (Potassium Replacement Protocol 1 Each Misc) 1 each MISCELLANE DAILY PRN; Protocol PRN Reason: Per Protocol Ondansetron HCl (Ondansetron 4 Mg/2 Ml Vial) 4 mg IVP Q6HR PRN PRN Reason: Nausea And Vomiting Last Admin: 02/28/21 07:51 Dose: 4 mg Documented by: Pantoprazole Sodium (Pantoprazole 40 Mg/10 Ml Vial) 40 mg IVP BID [facility] Last Admin: 03/04/21 08:31 Dose: 40 mg Documented by: Risperidone (Risperidone 1 Mg Tab) 1 mg PEG/G-TUBE BID@0800,2000 [facility] Last Admin: 03/04/21 08:30 Dose: 1 mg Documented by: PHYSICAL EXAMINATION: GENERAL: Patient is sleeping and unresponsive and obtunded unable to answer any questions, chronic contractures noted on exam as well HEENT: Pupils are round and equally reacting to light. EOMI. No scleral icterus. No conjunctival pallor. Normocephalic, atraumatic. No pharyngeal erythema. No thyromegaly. CARDIOVASCULAR: S1 and S2 present. No murmurs, rubs, or gallops. PULMONARY: diminished breath sounds bilaterally with some upper tracheal gurgling noted with some mild expiratory wheezing on exam ABDOMEN: Soft, mildly distended, nontender, no mass noted MUSCULOSKELETAL: No joint swelling or deformity. EXTREMITIES: No cyanosis, clubbing, or pedal edema. NEUROLOGICAL: Patient is not following commands unable to assess. Obtunded SKIN: No rashes. Assessment and plan: -Acute upper GI bleed most probably peptic ulcer disease, no further episodes of hematemesis or bloody stools noted -Possibly pancreatitis etiology is not clear no gallstone on the ultrasound, surgery following recommending no surgical intervention at this time -Leukocytosis may be secondary to upper GI bleed or pancreatitis -Atelectasis bilateral -acute hypoxic respiratory failure requiring 15 L nonrebreather possibly secondary to aspiration pneumonia, continue supplemental oxygen support and wean as tolerated and patient is maintained on Flagyl and Zosyn -Hypervolemic hyponatremia improved -Hypernatremia, sodium is 144 today improved and IV fluids discontinued and will continue with free water flushes with tube feeds -Acute renal failure prerenal azotemia secondary to intravascular depletion and dehydration improved with IV fluids -Lactic acidosis secondary to intravascular depletion no clear evidence of sepsis at this time -History of atrial fibrillation -Dementia -Hypertension -Hyperlipidemia -Seizure disorder for which patient is on valproic acid via IV and Keppra via PEG tube -Hypothyroidism -Schizoaffective disorder -Hypokalemia natriuretic hypokalemia, improved and is 3.6 today -DVT prophylaxis: SCDs Objective - Vital Signs Vital signs: Vital Signs Temp 97.6 F 03/04/21 04:00 Pulse 191 H 03/04/21 07:26 Resp 26 H 03/04/21 07:00 BP 113/61 03/04/21 07:00 Pulse Ox 93 L 03/04/21 07:00 Intake & Output 03/03/21 03/04/21 03/04/21 18:59 06:59 18:59 Intake Total 1000 2040 80 Output Total 395 350 30 Balance 605 1690 50 Weight 73.1 kg 74.2 kg Intake: IV 1000 1000 50 Piperacillin-Tazobactam 3 200 200 .375 gm In Sodium Chloride 0.9% 100 ml @ 25 mls/hr IVPB Q8H [facility] Rx#: [id number] Sodium Chloride 0.45% 1, 500 600 50 000 ml @ 50 mls/hr IV . Q20H [facility] Rx#:[id number] Sodium Chloride 0.9% 1, 100 000 ml @ 50 mls/hr IV . Q20H [facility] Rx#:[id number] Valproate Sodium 500 mg 100 In Sodium Chloride 0.9% 100 ml @ 100 mls/hr IVPB Q12H [facility] Rx#:[id number] metroNIDAZOLE-NS PMX 500 200 100 mg In Saline 1 100ml.bag @ 100 mls/hr IVPB Q8HR [facility] Rx#:[id number] Tube Feeding 290 30 Other 750 Output: Urine 395 350 30 Other: Voiding Method Indwelling Catheter Indwelling Catheter # Bowel Movements 1 - Labs CBC & Chem 7: 03/04/21 03:40 03/04/21 03:40 Labs: Abnormal Lab Results - Last 24 Hours (Table) 03/03/21 03/04/21 03/04/21 Range/Units 09:45 03:40 03:40 WBC 19.9 H (3.8-10.6) k/uL RBC 2.37 L (3.80-5.40) m/uL Hgb 7.0 L (11.4-16.0) gm/dL Hct 23.2 L (34.0-46.0) % MCHC 30.3 L (31.0-37.0) g/dL RDW 17.0 H (11.5-15.5) % Plt Count 74 L (150-450) k/uL Neutrophils # 17.2 H (1.3-7.7) k/uL ABG pCO2 57 H (35-45) mmHg ABG pO2 72 L (83-108) mmHg ABG HCO3 34 H (21-25) mmol/L ABG Total CO2 36 H (19-24) mmol/L Carbon Dioxide 31 H (22-30) mmol/L BUN 21 H (7-17) mg/dL Creatinine 0.50 L (0.52-1.04) mg/dL Calcium 8.2 L (8.4-10.2) mg/dL Microbiology - Last 24 Hours (Table) 02/28/21 15:57 Blood Culture - Preliminary Blood No Growth after 72 hours
[2021-03-04] MEDS: LATANOPROST 0.005% OPHTH DROPS 2.5 ML BTL BOTH EYES SCH (21:20)
[2021-03-04] MEDS: HYDROmorphone 0.5 MG/0.5 ML SYRINGE IVP PRN (21:33)
[2021-03-05] MEDS: metroNIDAZOLE-NS PMX 500 MG in SALINE 1 100ML.BAG IVPB SCH ×2 (00:13→07:54)
[2021-03-05] MEDS: VALPROATE SODIUM 500 MG in SODIUM CHLORIDE 0.9% 100 ML IVPB SCH (02:40)
[2021-03-05 04:21] LABS: Anisocytosis Slight; HCT 23.5 % (34.0-46.0); HGB 7.4 gm/dL (11.4-16.0); Hypochromasia Marked; MCHC 31.5 g/dL (31.0-37.0); MCV 98.4 fL (80.0-100.0); Macrocytosis Slight; RBC 2.39 m/uL (3.80-5.40); RDW 17.1 % (11.5-15.5); WBC 14.2 k/uL (3.8-10.6)
[2021-03-05 04:32] VITALS: TEMP 97.5
[2021-03-05 04:40] LABS: Platelet Count 69 k/uL (150-450)
[2021-03-05 05:04] LABS: ALT 14 U/L (4-34); AST 35 U/L (14-36); African American GFR (CKD) >90 (>60 ml/min/1.73 sqM); Albumin 2.2 g/dL (3.5-5.0); Alkaline Phosphatase 140 U/L (38-126); Anion Gap 6 mmol/L; Blood Urea Nitrogen 22 mg/dL (7-17); Calcium 8.6 mg/dL (8.4-10.2); Carbon Dioxide 31 mmol/L (22-30); Chloride 104 mmol/L (98-107); Glucose 120 mg/dL (74-99); Non-African American GFR(CKD) 89 (>60 ml/min/1.73 sqM); Potassium 4.1 mmol/L (3.5-5.1); Sodium 141 mmol/L (137-145); Total Bilirubin 0.3 mg/dL (0.2-1.3); Total Protein 4.7 g/dL (6.3-8.2)
[2021-03-05] MEDS: LEVOTHYROXINE 100 MCG TAB PEG/G-TUBE SCH (05:21)
[2021-03-05] MEDS: LEVOTHYROXINE 75 MCG TAB PEG/G-TUBE SCH (05:21)
[2021-03-05] MEDS: PIPERACILLIN-TAZOBACTAM 3.375 GM in SODIUM CHLORIDE 0.9% 100 ML IVPB SCH (05:21)
[2021-03-05] MEDS: HYDROmorphone 0.5 MG/0.5 ML SYRINGE IVP PRN (05:45)
[2021-03-05] MEDS ORDERED: NOREPINEPHRINE 4 MG in SODIUM CHLORIDE 0.9% 250 ML IV SCH (06:00)
[2021-03-05 06:23] LABS: Band Neutrophils % 20 %; Eosinophils # (M) 0.85 k/uL (0-0.7); Lymphocytes # (M) 2.13 k/uL (1.0-4.8); Metamyelocytes # (M) 0.14 k/uL (0); Metamyelocytes % 1 %; Monocytes # (M) 0.43 k/uL (0-1.0); Neutrophils % (M) 57 %; Nucleated Red Blood Cells 0 /100 WBC (0-0); Total Cells Counted 200
[2021-03-05 06:25] LABS: Poikilocytosis (M) Present; Polychromasia Present; Target Cells Present
[2021-03-05 07:07] LABS: ABG Base Excess 7.1 mmol/L; ABG HCO3 35 mmol/L (21-25); ABG Oxygen Saturation 95.1 % (94-97); ABG PO2 84 mmHg (83-108); ABG TCO2 38 mmol/L (19-24); Allen Test Performed? Yes
[2021-03-05] MEDS: IPRATROPIUM-ALBUTEROL 3 ML NEB INHALATION SCH ×2 (07:22→11:51)
[2021-03-05 07:25] LABS: ABG PCO2 93 mmHg (35-45); ABG PH 7.19 (7.35-7.45)
--- NOTE | 2021-03-05 07:33 | XR ---
EXAMINATION TYPE: XR chest 1V portable DATE OF EXAM: 03/05/2021 COMPARISON: 03/04/2021 INDICATION: Dyspnea TECHNIQUE: Single frontal view of the chest is obtained. FINDINGS: The heart size is normal. The pulmonary vasculature is normal. Diffuse patchy infiltrate are present bilaterally. There may be slight improvement over the interval. Continued follow-up is recommended. IMPRESSION: 1. Mild improvement of bilateral lung infiltrates. Continued follow-up is recommended
[2021-03-05] MEDS: FUROSEMIDE 10 MG/ML 2 ML VIAL IV SCH (07:54)
[2021-03-05] MEDS: APIXABAN 2.5 MG TABLET PEG/G-TUBE SCH (07:54)
[2021-03-05] MEDS: levETIRAcetam 500 MG TAB PEG/G-TUBE SCH (07:54)
[2021-03-05] MEDS: LACTULOSE 20 GM/30 ML CUP PO SCH (07:54)
[2021-03-05] MEDS: PANTOPRAZOLE 40 MG/10 ML VIAL IVP SCH (07:54)
[2021-03-05] MEDS: risperiDONE 1 MG TAB PEG/G-TUBE SCH (07:54)
[2021-03-05 09:07] VITALS: BMI 34.2
--- NOTE | 2021-03-05 09:21 | P.PN ---
<William,Rica - Last Filed: 03/05/21 09:10> Subjective Progress Note Date: 03/05/21 On today's evaluation of 02/22/2021, the patient is currently in the intensive care unit. The patient is being monitored very closely as the patient had acute hypoxic respiratory failure, constipation, abdominal distention and a component of pancreatitis and for that reason she was hospitalized yesterday. Currently she doesn't 100% nonrebreather facemask. Chest x-ray from today still in progress. She has a congested cough. Her breathing is mildly labored. She is also mildly tachypneic. NG tube is in place and output is minimal at this point in time. Abdomen is still slightly distended. No direct tenderness. No rebound or tenderness. No guarding. Bowel sounds are hypoactive. White cell count is 23.7 with a hemoglobin of 7.9 and a platelet count of 99,000. The rest of the blood work and electrolytes show hypokalemia which is being replaced with a potassium level of 2.8. Normal renal function. The liver function tests are essentially normal. Albumin is at 2.4 with a protein of 5.1. Urine analysis was essentially negative. She remains on a combination of Zosyn and Flagyl. General surgeries on the case. She was given lactulose in the emergency department. We have not encountered any bowel activity yet. I'm not sure whether she completed the soapsuds enema yesterday that was ordered in the emergency department. Ultrasound of the gallbladder was also completed and it showed no significant abnormalities and was a limited study because of her body habitus. Nevertheless, the gallbladder wall was not thickened and the common bile duct was only at 4 mm and there was no stones within the goal bladde r.-pack-years was also secured. 03/03/2021, and seeing this patient for a follow-up. She is quite lethargic and not interactive and nonresponsive which is not unusual for her whenever she gets sick. I'm suspecting an aspiration pneumonia. The patient has diffuse bilateral pulmonary infiltrates. She is currently on 100% nonrebreather facemask. Her coughing is less and her breathing is less labored compared to yesterday. Her pulse ox is currently around 96%. No signs of any fluid overload knowing that she has an aortic stenosis. IV fluids are running in the form of normal saline at the rate of 50 mL an hour. She is afebrile. She is hemodynamic is stable. Efforts to improve her bowel mobility and constipation included a soapsuds enema yesterday, Colace and lactulose. Her abdomen is less distended today. No direct tenderness. No rebound tenderness. No guarding or guarding. The patient also had a small bowel movement. Surgical team decided to proceed with she'll feeds through the PEG tube with a lower rate. NG tube is removed. Meanwhile, the patient is on broad-spectrum antibiotics and she is currently on Zosyn and Flagyl. The white cell count of 21.2 which is lower compared to yesterday. Hemoglobin stable at 7.3, slightly lower compared to yesterday, platelet count is at 97. Sodium level is at 147 and I think it's reasonable to give her some free water through the PEG tube. BUN is 26 with a creatinine of 0.6. Amylase and lipase were also dropping. No other significant events. She is afebrile. She is hemodynamically stable. 03/04/2021, the patient is being seen for a follow-up. She remains very much lethargic and she is not communicating at this point in time. 200% on a beta facemasks with a pulse ox of 92%. Reading is slightly labored. Chest x-ray remains unchanged with diffuse bilateral pulmonary infiltrates and cardiomegaly. As stated earlier this is a case of severe aortic stenosis. She was also having issues with aspiration and constipation. Terms of the constipation, the patient underwent manual disimpaction addition to several enemas given to her and she was placed on Colace. She did have some bowel movement activity and the patient is currently on enteral feeding for nutritional support and she is back on vital AF at the rate of 30 mL an hour. In terms of her electrolytes, her sodium level is down to 144 and the patient is receiving free water through her PEG tube. NG tube has been removed. Hemodynamically she is stable. The white cell count is down to 19. Renal function stable. Hemoglobin is down to 7. BUN is at 21 with a creatinine of 0.5. Atelectatic discussion with the caregiver. Contacted the caregiver and discussed with her the case. Unfortunately performance and functional status is extremely poor. We are working on changing her CODE STATUS to DNR/DNI and we are working with a public guardian. The patient is seen today 03/05/2021 in follow-up in the intensive care unit. She remains unresponsive and quite lethargic. Not responding to verbal or tactile stimuli. She had been on 100% nonrebreather mask however blood gases this morning revealed a pO2 of 84, pCO2 of 93 and a pH of 7.19. She was then placed on BiPAP 12/6 and 70% FiO2 and maintaining O2 saturations in the 90s. She is on norepinephrine at 0.14 mcg/kg/m. 0.9 normal saline at KVO. She's been nourished with vital HP at 40 ML's per hour which is goal. Chest x-ray shows some mild improvement in the diffuse bilateral pulmonary infiltrates and cardiomegaly. She remains in sinus rhythm. Blood cultures reveal no growth. Urine culture reveals no growth. White count 14.2. Hemoglobin 7.4. Platelet count 69,000. Sodium 141. Potassium 4.1. Creatinine 0.57. Glucose 120. Remains on DuoNeb inhalations, IV diuretics, antibiotics in the form of Zosyn and Flagyl. Anticoagulated with Eliquis. Objective - Vital Signs Vital signs: Vital Signs Temp 97.5 F L 03/05/21 08:00 Pulse 109 H 03/05/21 08:00 Resp 33 H 03/05/21 08:00 BP 100/53 03/05/21 08:00 Pulse Ox 92 L 03/05/21 08:00 Intake & Output 03/04/21 03/05/21 03/05/21 18:59 06:59 18:59 Intake Total 1495 1758.962 32.759 Output Total 915 435 60 Balance 580 1323.962 -27.241 Weight 79.6 kg 79.6 kg Intake: IV 585 420 10 Piperacillin-Tazobactam 3 125 200 .375 gm In Sodium Chloride 0.9% 100 ml @ 25 mls/hr IVPB Q8H [facility] Rx#: [id number] Sodium Chloride 0.45% 1, 160 100 000 ml @ 50 mls/hr IV . Q20H [facility] Rx#:[id number] Sodium Chloride 0.9% 1, 20 10 000 ml @ 50 mls/hr IV . Q20H [facility] Rx#:[id number] Valproate Sodium 500 mg 100 In Sodium Chloride 0.9% 100 ml @ 100 mls/hr IVPB Q12H [facility] Rx#:[id number] metroNIDAZOLE-NS PMX 500 200 100 mg In Saline 1 100ml.bag @ 100 mls/hr IVPB Q8HR [facility] Rx#:[id number] Intake, IV Titration 20.962 22.759 Amount Norepinephrine 4 mg In 20.962 22.759 Sodium Chloride 0.9% 250 ml @ 0.05 MCG/KG/MIN 14. 973 mls/hr IV .[id number] [facility] Rx#:[id number] Tube Feeding 410 568 Other 500 750 Output: Urine 915 435 60 Other: Voiding Method Indwelling Catheter Indwelling Catheter - Exam 80-year-old female patient, very lethargic yet barely arousable. She is currently on BiPAP 12/6 and 70% FiO2 to maintain O2 saturations in the low 90s. Head exam was generally normal. There was no scleral icterus or corneal arcus. Mucous membranes were moist. Neck was supple and without jugular venous distension, thyromegaly, or carotid bruits. Carotids were easily palpable bilaterally. There was no adenopathy. Lungs with bilateral scattered rhonchi, crackles in the posterior bases. Obvious thoracic and thoracolumbar kyphoscoliosis with cervical kyphosis. Cardiac exam revealed the PMI to be normally situated and sized. The rhythm was regular and no extrasystoles were noted during several minutes of auscultation. There were systolic ejection murmur consistent with aortic stenosis , rubs, clicks, or gallops. Abdominal exam revealed normal bowel sounds. The abdomen was soft, non-tender, and without masses, however is slightly distended and the bowel sounds are hypoactive, organomegaly, or appreciable enlargement of the abdominal aorta. The patient is a PEG tube in place and the PEG tube site is dry clean and intact and there is no direct tenderness or rebound tensile guarding. Bowel sounds are hypoactive at the present Examination of the extremities revealed easily palpable radial, femoral and pedal pulses. There was no cyanosis, clubbing or edema. Examination of the skin revealed no evidence of significant rashes, suspicious appearing nevi or other concerning lesions. 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 Neurologically the patient is very lethargic and not following any simple commands. Barely arousable. - Labs CBC & Chem 7: 03/05/21 04:05 03/05/21 04:05 Labs: Abnormal Lab Results - Last 24 Hours (Table) 03/05/21 03/05/21 03/05/21 Range/Units 04:05 04:05 07:00 WBC 14.2 H (3.8-10.6) k/uL RBC 2.39 L (3.80-5.40) m/uL Hgb 7.4 L (11.4-16.0) gm/dL Hct 23.5 L (34.0-46.0) % RDW 17.1 H (11.5-15.5) % Plt Count 69 L (150-450) k/uL Neutrophils # (Manual) 10.90 H (1.3-7.7) k/uL Eosinophils # (Manual) 0.85 H (0-0.7) k/uL Metamyelocytes # (Man) 0.14 H (0) k/uL ABG pH 7.19 L* (7.35-7.45) ABG pCO2 93 H* (35-45) mmHg ABG HCO3 35 H (21-25) mmol/L ABG Total CO2 38 H (19-24) mmol/L Carbon Dioxide 31 H (22-30) mmol/L BUN 22 H (7-17) mg/dL Glucose 120 H (74-99) mg/dL Alkaline Phosphatase 140 H (38-126) U/L Total Protein 4.7 L (6.3-8.2) g/dL Albumin 2.2 L (3.5-5.0) g/dL Microbiology - Last 24 Hours (Table) 02/28/21 15:57 Blood Culture - Preliminary Blood No Growth after 96 hours Assessment and Plan Assessment: 1 abdominal distention currently under investigation. Rule out constipation. There may be also mild component of gallstone pancreatitis. LFTs are normal. Amylase and lipase were slightly elevated, improving. No evidence of any bowel obstruction or ileus at this point in time. The patient's nothing by mouth. The NG tube has been removed. The patient received manual disimpaction and she is currently on laxatives. She also receiving free water through her PEG tube. 2 acute hypoxic respiratory failure, consider aspiration pneumonia. Note that there may be also a component of pulmonary edema secondary to valvular heart disease. Remains on diuretics. 3 previous history of pneumonias secondary to pseudomonas aeruginosa during earlier hospitalizations, currently on Zosyn and Flagyl 4 acute leukocytosis, currently under investigation, consider underlying sepsis, white count is stable, slightly lower compared to yesterday's down to 14 5 acute kidney injury, improving and the creatinine is down to 0.57 6 history of seizure activity maintained on combination of antiepileptic medication on outpatient basis 7 dementia 8 developmental delay 9 parkinsonian features 10 depression disorder 11 moderate degree of aortic stenosis with a harsh cardiac murmur as noted on physical examination. Please echocardiac Gab showing an ejection fraction of 55% with moderate degree of pulmonary hypertension 12 stage IV left buttocks ulcers post-debridement without evidence of any acute infection. 13 esophageal stricture and the patient has a PEG tube in place for enteral feeding and nutritional support 14 abnormal gait due to our concern is and then dementia and the patient is wh eelchair-bound and the patient has a caregiver at all 15 paroxysmal atrial fibrillation current rhythm is sinus 16 hypertension 17 hyperlipidemia 18 previous history of pneumonia and respiratory failure requiring prolonged hospitalization mechanical ventilation 19 history of recurrent UTIs 20 hypothyroidism 21 obstructive sleep apnea with an AHI of 78 maintained on a CPap on outpatient basis 22 poor overall functional performance based on the above-mentioned multiple comorbidities Plan: The patient was seen and evaluated by Dr. Lilly Chest x-ray, ABGs and labs reviewed Currently on BiPAP 12/6 and 70% FiO2 Awaiting information from the public guardian regarding possible DO NOT RESUSCITATE/DO NOT INTUBATE CODE STATUS This would be very appropriate for this patient with a very poor prognosis In the interim, we'll continue with full supportive care We'll continue to follow and make further recommendations based on her clinical status I, the cosigning physician, performed a history & physical examination of the patient. Lungs sounds bilateral scattered rhonchi, crackles in the bases. Maintaining good O2 saturations in the 90s on 70% FiO2 via BiPAP 12/6. I discussed the assessment and plan of care with my nurse practitioner, Rica Thomas. I attest to the above note as dictated by her. <Truong Lilly - Last Filed: 03/05/21 10:20> Objective - Vital Signs Vital signs: Vital Signs Temp 97.5 F L 03/05/21 08:00 Pulse 96 03/05/21 10:00 Resp 32 H 03/05/21 10:00 BP 97/47 03/05/21 10:00 Pulse Ox 91 L 03/05/21 10:00 Intake & Output 03/04/21 03/05/21 03/05/21 18:59 06:59 18:59 Intake Total 1495 1758.962 32.759 Output Total 915 435 95 Balance 580 1323.962 -62.241 Weight 79.6 kg 79.6 kg Intake: IV 585 420 10 Piperacillin-Tazobactam 3 125 200 .375 gm In Sodium Chloride 0.9% 100 ml @ 25 mls/hr IVPB Q8H [facility] Rx#: [id number] Sodium Chloride 0.45% 1, 160 100 000 ml @ 50 mls/hr IV . Q20H [facility] Rx#:[id number] Sodium Chloride 0.9% 1, 20 10 000 ml @ 50 mls/hr IV . Q20H [facility] Rx#:[id number] Valproate Sodium 500 mg 100 In Sodium Chloride 0.9% 100 ml @ 100 mls/hr IVPB Q12H [facility] Rx#:[id number] metroNIDAZOLE-NS PMX 500 200 100 mg In Saline 1 100ml.bag @ 100 mls/hr IVPB Q8HR [facility] Rx#:[id number] Intake, IV Titration 20.962 22.759 Amount Norepinephrine 4 mg In 20.962 22.759 Sodium Chloride 0.9% 250 ml @ 0.05 MCG/KG/MIN 14. 973 mls/hr IV .[id number] [facility] Rx#:[id number] Tube Feeding 410 568 Other 500 750 Output: Urine 915 435 95 Other: Voiding Method Indwelling Catheter Indwelling Catheter Indwelling Catheter - Labs CBC & Chem 7: 03/05/21 04:05 03/05/21 04:05 Labs: Abnormal Lab Results - Last 24 Hours (Table) 03/05/21 03/05/21 03/05/21 Range/Units 04:05 04:05 07:00 WBC 14.2 H (3.8-10.6) k/uL RBC 2.39 L (3.80-5.40) m/uL Hgb 7.4 L (11.4-16.0) gm/dL Hct 23.5 L (34.0-46.0) % RDW 17.1 H (11.5-15.5) % Plt Count 69 L (150-450) k/uL Neutrophils # (Manual) 10.90 H (1.3-7.7) k/uL Eosinophils # (Manual) 0.85 H (0-0.7) k/uL Metamyelocytes # (Man) 0.14 H (0) k/uL ABG pH 7.19 L* (7.35-7.45) ABG pCO2 93 H* (35-45) mmHg ABG HCO3 35 H (21-25) mmol/L ABG Total CO2 38 H (19-24) mmol/L Carbon Dioxide 31 H (22-30) mmol/L BUN 22 H (7-17) mg/dL Glucose 120 H (74-99) mg/dL Alkaline Phosphatase 140 H (38-126) U/L Total Protein 4.7 L (6.3-8.2) g/dL Albumin 2.2 L (3.5-5.0) g/dL Microbiology - Last 24 Hours (Table) 02/28/21 15:57 Blood Culture - Preliminary Blood No Growth after 96 hours Assessment and Plan Assessment: Joint evaluation done with Rica Gonzalez, the patient decompensated and the patient is currently on noninvasive positive pressure ventilation through a BiPAP and current BiPAP settings of 14/6 cm of water with an FiO2 of 70%. She had significant respiratory acidosis in addition to hypoxemia and for that reason she was placed on a BiPAP. Current pulse ox is around 91%. She is tachypneic breathing fast and she is able to generate tidal volumes of around 2 60 mL. X- rays consistent with diffuse bilateral pneumonia. He did not respond to diuretics. Awaiting final leukocytosis change by a heating this being done at course. The caregivers will be made aware.. We are working with a a public guardian. Family members only also made aware. I believe she is a niece. Prognosis poor. We will avoid intubation knowing that the patient has a very poor baseline performance and functional status and also recovery from his respiratory failure is extremely low. Critical care evaluation, the more than 30 minutes. Time with Patient: Greater than 30
[2021-03-05] MEDS ORDERED: NOREPINEPHRIN 4 MG-0.9% NS PMX 4 MG/250 ML ML IV ONE (11:06)
[2021-03-05] MEDS ORDERED: EPINEPHrine 10 ML SYRINGE (0.1 MG/ML) ONE (11:10)
--- NOTE | 2021-03-05 11:44 | P.PCN ---
Date of Procedure: 03/05/21 Preoperative Diagnosis: Cardiac arrest Surgeon: Truong Lilly Disposition: ICU Operative Findings: Indication: Respiratory compromise. A time-out was completed verifying correct patient, procedure, site, positioning, and implant(s) or special equipment if applicable. The patient was positioned appropriately and a #7 endotracheal tube was placed under direct laryngoscopy. The tube was anchored at 22 cm at the teeth. Corre ct placement was confirmed by presence of bilateral breath sounds without air sounds in the abdomen on auscultation. An end-tidal CO2 monitor was also used to confirm tracheal placement of the ET tube. A chest x-ray was ordered to assess for pneumothorax and verify endotracheal tube placement. The patient tolerated the procedure well and there were no complications.
--- NOTE | 2021-03-05 11:44 | P.EN ---
. The patient acutely went into bradycardia and cardiac asystole. Note that her CODE STATUS was not treated that point. Based on that, we initiated CPR, intubated the patient and there was copious amount of rest or secretions occupying the vocal cords consistent with underlying ongoing aspiration. The code was continued. There was return of smoking circulation and the patient went into atrial fibrillation. Subsequently, the patient went into a PEA rhythm again, compression was continued and after undergoing a code for around 24 minutes, the patient was pronounced on 11 54 AM. Family was made aware. Regarding was made aware. Caregivers were made aware.
[2021-03-05 11:50] VITALS: BP 101/74; PULSE 73; RESP 28
--- NOTE | 2021-03-05 13:20 | P.PN ---
<Char Morillo - Last Filed: 03/05/21 13:11> Subjective Progress Note Date: 03/05/21 CHIEF COMPLAINT: Abdominal pain HISTORY OF PRESENT ILLNESS: This is a late entry. Patient seen and examined around 10:00 this morning. She did require to be placed on BiPAP. Her ABGs were worse this morning. Per nursing staff they had reached out to the guardian who is supposed to make a decision regarding possible comfort care. Patient is lethargic. Patient remains in the ICU. No nausea or vomiting reported. She did have a bowel movement 2 days ago. It is noted in the patient's chart in the event note the patient went into cardiac arrest. CPR was initiated and she required to be intubated. Patient did pass away. Please refer to chart for further details PHYSICAL EXAM: VITAL SIGNS: Reviewed GENERAL: Well-developed in no acute distress. HEENT: No sclera icterus. Extraocular movements grossly intact. Moist buccal mucosa. Head is atraumatic, normocephalic. Hears conversational speech. No nasal drainage. NECK: Supple without lymphadenopathy. CHEST: Non-labored respirations and equal bilateral excursions. CARDIOVASCULAR: Palpable 2+ radial pulses. ABDOMEN: Soft. Distended MUSCULOSKELETAL: No clubbing or cyanosis. NEUROLOGIC: Lethargic SKIN: Well perfused. Good skin turgor. ASSESSMENT: 1. Possible Gallstone pancreatitis 2. Constipation 3. Developmental delay 4. Hypokalemia 5. Suspected aspiration pneumonia 6. Acute hypoxic respiratory failure PLAN: -No surgical intervention planned was planned during this admission. And had recommended conservative management Physician Senior Business Consultant note has been reviewed by physician. Signing provider agrees with the documented findings, assessment, and plan of care. Objective - Vital Signs Vital signs: Vital Signs Temp 97.5 F L 03/05/21 08:00 Pulse 73 03/05/21 11:00 Resp 28 H 03/05/21 11:00 BP 101/74 03/05/21 11:00 Pulse Ox 83 L 03/05/21 11:00 Intake & Output 03/04/21 03/05/21 03/05/21 18:59 06:59 18:59 Intake Total 1495 1758.962 32.759 Output Total 915 435 95 Balance 580 1323.962 -62.241 Weight 79.6 kg 79.6 kg Intake: IV 585 420 10 Piperacillin-Tazobactam 3 125 200 .375 gm In Sodium Chloride 0.9% 100 ml @ 25 mls/hr IVPB Q8H [facility] Rx#: [id number] Sodium Chloride 0.45% 1, 160 100 000 ml @ 50 mls/hr IV . Q20H [facility] Rx#:[id number] Sodium Chloride 0.9% 1, 20 10 000 ml @ 50 mls/hr IV . Q20H [facility] Rx#:[id number] Valproate Sodium 500 mg 100 In Sodium Chloride 0.9% 100 ml @ 100 mls/hr IVPB Q12H [facility] Rx#:[id number] metroNIDAZOLE-NS PMX 500 200 100 mg In Saline 1 100ml.bag @ 100 mls/hr IVPB Q8HR [facility] Rx#:[id number] Intake, IV Titration 20.962 22.759 Amount Norepinephrine 4 mg In 20.962 22.759 Sodium Chloride 0.9% 250 ml @ 0.05 MCG/KG/MIN 14. 973 mls/hr IV .[id number] [facility] Rx#:[id number] Tube Feeding 410 568 Other 500 750 Output: Urine 915 435 95 Other: Voiding Method Indwelling Catheter Indwelling Catheter Indwelling Catheter - Labs CBC & Chem 7: 03/05/21 04:05 03/05/21 04:05 Labs: Abnormal Lab Results - Last 24 Hours (Table) 03/05/21 03/05/21 03/05/21 Range/Units 04:05 04:05 07:00 WBC 14.2 H (3.8-10.6) k/uL RBC 2.39 L (3.80-5.40) m/uL Hgb 7.4 L (11.4-16.0) gm/dL Hct 23.5 L (34.0-46.0) % RDW 17.1 H (11.5-15.5) % Plt Count 69 L (150-450) k/uL Neutrophils # (Manual) 10.90 H (1.3-7.7) k/uL Eosinophils # (Manual) 0.85 H (0-0.7) k/uL Metamyelocytes # (Man) 0.14 H (0) k/uL ABG pH 7.19 L* (7.35-7.45) ABG pCO2 93 H* (35-45) mmHg ABG HCO3 35 H (21-25) mmol/L ABG Total CO2 38 H (19-24) mmol/L Carbon Dioxide 31 H (22-30) mmol/L BUN 22 H (7-17) mg/dL Glucose 120 H (74-99) mg/dL Alkaline Phosphatase 140 H (38-126) U/L Total Protein 4.7 L (6.3-8.2) g/dL Albumin 2.2 L (3.5-5.0) g/dL Microbiology - Last 24 Hours (Table) 02/28/21 15:57 Blood Culture - Preliminary Blood No Growth after 96 hours <Milagros Mayberry - Last Filed: 03/06/21 20:00> Subjective As above. Patient went into cardiopulmonary arrest and passed. Objective - Vital Signs Vital signs: Vital Signs Temp 97.5 F L 03/05/21 08:00 Pulse 73 03/05/21 11:00 Resp 28 H 03/05/21 11:00 BP 101/74 03/05/21 11:00 Pulse Ox 83 L 03/05/21 11:00 - Labs CBC & Chem 7: 03/05/21 04:05 03/05/21 04:05 Labs: Microbiology - Last 24 Hours (Table) 02/28/21 15:57 Blood Culture - Final Blood No Growth after 144 hours Assessment and Plan (1) Pancreatitis Status: Acute Code(s): K85.90 - ACUTE PANCREATITIS WITHOUT NECROSIS OR INFECTION, UNSP SNOMED Code(s): 16399251 (2) Abdominal distension Status: Acute Code(s): R14.0 - ABDOMINAL DISTENSION (GASEOUS) SNOMED Code(s): 13755450 (3) Constipation Status: Acute Code(s): K59.00 - CONSTIPATION, UNSPECIFIED SNOMED Code(s): 12245852 (4) Dysphagia Status: Acute Code(s): R13.10 - DYSPHAGIA, UNSPECIFIED SNOMED Code(s): 03310 000 (5) Aspiration pneumonia Status: Acute Code(s): J69.0 - PNEUMONITIS DUE TO INHALATION OF FOOD AND VOMIT SNOMED Code(s): 922744900
--- NOTE | 2021-03-05 13:38 | P.PN ---
Subjective Progress Note Date: 03/05/21 80-year-old the female came in for coffee-ground emesis and upper GI bleed which resolved at this time patient is on Protonix. Patient does have leukocytosis and patient is also being treated for pneumonia although there is no evidence of pneumonia on the computed tomography scan, I reviewed the computed tomography scan which showed infiltrate in bilateral lower lung huynh which appears to be atelectasis patient does have highly elevated white blood cell count of 34,000 without any fever etiology of this white blood cell count is not clear this did improve with IV antibiotics that is Zosyn for now until a we find the source off infection if at all any will continued antibiotic patient lipase was also elevated and cannot get any history from the patient. Unsure whether patient had pancreatitis. Ultrasound of the abdomen did not show any gallstone. Patient is hyponatremic and aspirin were replaced patient is receiving Lasix as well as IV fluids Lasix will be discontinued. Patient had acute renal failure which improved at this time. patient has no evidence of congestive heart failure at this time. 03/02/2021 Patient continues to be obtunded and unresponsive and currently maintained on 15 L nonrebreather and continues to be closely monitored in the ICU. Pulmonary wire bound box machine helper following closely.patient continues on Flagyl and Zosyn and will continue with gentle IV hydration.potassium critically low at 2.8 and being replaced. Sodium is 142, BUN is 33 and creatinine is 0.66.white blood count slightly trending down at 23.7 and hemoglobin is 7.9. blood pressure is improved and is in the 1 teens systolic. Chest x-ray is ordered and pending.surgery also following recommending conservative management with no surgical interventions planned at this time. Soapsuds enemas and lactulose ordered with minimal output noted in the NG tube and being discontinued. Patient is continued on IV Protonix and will continue. Prognosis remains poor and CODE STATUS needs to be addressed with legal guardian. DNR is appropriate for this patient. patient will require supporting documentation to bring to court as she is developmentally delayed in order to change CODE STATUS. Case management made aware. 03/03/2021 Patient is seen in follow-up this morning minimally responsive. Patient will awake for a brief moment and fall right back asleep. Patient is continued on 15 L via nonrebreather and maintaining 96% oxygen saturation. Patient is afebrile. Chest x-ray today shows patchy infiltrates throughout both lung huynh that persist and unchanged. Patient is continued on tube feeds and sodium found to be mildly elevated at 147 and will add free water flushes. Patient did receive potassium replacement yesterday and repeat potassium is 3.8 this morning. BUN is 26 with a creatinine of 0.62. White blood count mildly trending down at 21.2 and hemoglobin is 7.3. Patient did have NG tube removed and there is been no further emesis noted. Patient was also given an enema and continued on lactulose and did have a bowel movement and abdomen is softer on palpation. 03/04/2021 Patient is seen and evaluated in follow-up continues to be closely monitored in the ICU. Patient continues on nonrebreather 15 L with oxygen saturations of 97 and 98%. Patient was given lactulose and enema with reported 2 bowel movements and no blood noted no further bleeding noted. Hemoglobin is 7.0. Blood count trending down and 19.9. Sodium is 144 with a potassium of 3.6 and currently creatinine is 0.50. Patient is tolerating tube feeds. Legal guardian going to court in the morning to have CODE STATUS changed to no code. Patient is a resident at [facility] in case management and social work following. Chest x-ray today shows continued extensive bilateral airspace disease right greater than left without significant change from previous. IV fluids discontinued and patient was given a dose of K-Lyte for the potassium of 3.6. Pulmonary and surgery following closely. 03/05/2021 Patient is seen in follow-up this morning continues to be in the ICU with no acute changes overnight. Patient's mentation continues to be unchanged and patient is not responsive and continued on nonrebreather. Prognosis is extremely poor and guarded and plans are for court hearing this afternoon with legal guardian to change CODE STATUS. Family is aware of her current prognosis. White blood count trending down at 14.2 and hemoglobin is 7.4 with no active bleeding noted. ABG has worsened and pH is 7.19 and pCO2 is 93. Sodium is 141 and potassium is 4.1 and current creatinine is 0.57. Patient is hypotensive and breathing has become more labored and attempts at placing BiPAP with pulmonary wire bound box machine helper following closely. Pressors being started along with IV Lasix. REVIEW OF SYSTEMS: Unable to obtain due to her clinical condition PHYSICAL EXAMINATION: GENERAL: Patient is unresponsive and obtunded unable to answer any questions, chronic contractures noted on exam as well home extremely pale HEENT: Pupils are round and equally reacting to light. EOMI. No scleral icterus. No conjunctival pallor. Normocephalic, atraumatic. No pharyngeal erythema. No thyromegaly. CARDIOVASCULAR: S1 and S2 present. No murmurs, rubs, or gallops. PULMONARY: diminished breath sounds bilaterally with some upper tracheal gurgling noted with some mild expiratory wheezing on exam, tachypneic ABDOMEN: Soft, mildly distended, nontender, no mass noted MUSCULOSKELETAL: No joint swelling or deformity. EXTREMITIES: No cyanosis, clubbing, or pedal edema. NEUROLOGICAL: Patient is not following commands unable to assess. Obtunded SKIN: No rashes. Assessment and plan: -Acute upper GI bleed most probably peptic ulcer disease, no further episodes of hematemesis or bloody stools noted -Possibly pancreatitis etiology is not clear no gallstone on the ultrasound, surgery following recommending no surgical intervention at this time -Leukocytosis may be secondary to upper GI bleed or pancreatitis, trending down -acute hypoxic respiratory failure requiring 15 L nonrebreather possibly secondary to aspiration pneumonia, continue supplemental oxygen support and wean as tolerated and patient is maintained on Flagyl and Zosyn -Hypervolemic hyponatremia improved -Hypernatremia, sodium is 144 today improved and IV fluids discontinued and will continue with free water flushes with tube feeds -Acute renal failure prerenal azotemia secondary to intravascular depletion and dehydration improved with IV fluids -Lactic acidosis secondary to intravascular depletion no clear evidence of sepsis at this time -History of atrial fibrillation -Dementia -Hypertension, currently hypotensive and being started on norepinephrine -Hyperlipidemia -Seizure disorder for which patient is on valproic acid via IV and Keppra via PEG tube -Hypothyroidism -Schizoaffective disorder -Hypokalemia natriuretic hypokalemia, improved and is 4.1 today -DVT prophylaxis: SCDs -Full code Plan: Patient continues to be closely monitored in the ICU. Apparently court hearing to change CODE STATUS with public guardian is today at 1:30 and awaiting as patient's prognosis is extremely poor and guarded and clinically deteriorating and worsening more so today. Respiratory status more labored and patient maintained on nonrebreather with attempts at BiPAP and may require possible intubation. Patient also now hypotensive requiring pressors. Order Puller following closely. Family is aware of current clinical status. Again prognosis remains extremely poor and guarded. Objective - Vital Signs Vital signs: Vital Signs Temp 97.5 F L 03/05/21 08:00 Pulse 73 03/05/21 11:00 Resp 28 H 03/05/21 11:00 BP 101/74 03/05/21 11:00 Pulse Ox 83 L 03/05/21 11:00 Intake & Output 03/04/21 03/05/21 03/05/21 18:59 06:59 18:59 Intake Total 1495 1758.962 32.759 Output Total 915 435 95 Balance 580 1323.962 -62.241 Weight 79.6 kg 79.6 kg Intake: IV 585 420 10 Piperacillin-Tazobactam 3 125 200 .375 gm In Sodium Chloride 0.9% 100 ml @ 25 mls/hr IVPB Q8H [facility] Rx#: [id number] Sodium Chloride 0.45% 1, 160 100 000 ml @ 50 mls/hr IV . Q20H [facility] Rx#:[id number] Sodium Chloride 0.9% 1, 20 10 000 ml @ 50 mls/hr IV . Q20H [facility] Rx#:[id number] Valproate Sodium 500 mg 100 In Sodium Chloride 0.9% 100 ml @ 100 mls/hr IVPB Q12H [facility] Rx#:[id number] metroNIDAZOLE-NS PMX 500 200 100 mg In Saline 1 100ml.bag @ 100 mls/hr IVPB Q8HR [facility] Rx#:[id number] Intake, IV Titration 20.962 22.759 Amount Norepinephrine 4 mg In 20.962 22.759 Sodium Chloride 0.9% 250 ml @ 0.05 MCG/KG/MIN 14. 973 mls/hr IV .[id number] [facility] Rx#:[id number] Tube Feeding 410 568 Other 500 750 Output: Urine 915 435 95 Other: Voiding Method Indwelling Catheter Indwelling Catheter Indwelling Catheter - Labs CBC & Chem 7: 03/05/21 04:05 03/05/21 04:05 Labs: Abnormal Lab Results - Last 24 Hours (Table) 03/05/21 03/05/21 03/05/21 Range/Units 04:05 04:05 07:00 WBC 14.2 H (3.8-10.6) k/uL RBC 2.39 L (3.80-5.40) m/uL Hgb 7.4 L (11.4-16.0) gm/dL Hct 23.5 L (34.0-46.0) % RDW 17.1 H (11.5-15.5) % Plt Count 69 L (150-450) k/uL Neutrophils # (Manual) 10.90 H (1.3-7.7) k/uL Eosinophils # (Manual) 0.85 H (0-0.7) k/uL Metamyelocytes # (Man) 0.14 H (0) k/uL ABG pH 7.19 L* (7.35-7.45) ABG pCO2 93 H* (35-45) mmHg ABG HCO3 35 H (21-25) mmol/L ABG Total CO2 38 H (19-24) mmol/L Carbon Dioxide 31 H (22-30) mmol/L BUN 22 H (7-17) mg/dL Glucose 120 H (74-99) mg/dL Alkaline Phosphatase 140 H (38-126) U/L Total Protein 4.7 L (6.3-8.2) g/dL Albumin 2.2 L (3.5-5.0) g/dL Microbiology - Last 24 Hours (Table) 02/28/21 15:57 Blood Culture - Preliminary Blood No Growth after 96 hours
--- NOTE | 2021-03-05 15:23 | P.DS ---
Providers Date of admission: 02/28/21 04:55 Expected date of discharge: 03/05/21 Attending physician: Gwen Flores Consults: 02/28/21 11:56 Consult Physician Urgent Consulting Provider: Milagros Mayberry Consult Reason/Comments: constipation,abd pain, known to physician Do you want consulting provider notified?: Already Contacted 03/01/21 14:13 Consult Physician Stat Consulting Provider: Truong Lilly Consult Reason/Comments: hypoxia Do you want consulting provider notified?: Yes Primary care physician: [facility] Course: Final diagnosis -Acute upper GI bleed most probably peptic ulcer disease, no further episodes of hematemesis or bloody stools noted -Possibly pancreatitis etiology is not clear -Leukocytosis may be secondary to upper GI bleed or pancreatitis -acute hypoxic respiratory failure possibly secondary to aspiration pneumonia -Hypervolemic hyponatremia improved -Hypernatremia, improving -Acute renal failure prerenal azotemia secondary to intravascular depletion and dehydration improved -Lactic acidosis secondary to intravascular depletion no clear evidence of sepsis at this time -History of atrial fibrillation -Dementia -Hypertension, currently hypotensive -Hyperlipidemia -Seizure disorder -Hypothyroidism -Schizoaffective disorder -Hypokalemia natriuretic hypokalemia, improved -DVT prophylaxis -Full code Preliminary cause of Aspiration pneumonia Discharge disposition Patient has on 03/05/2021 and according to nursing documentation time of is 1135. Please refer to progress note from today for further HPI along with intensive the documentation. Patient Condition at Discharge: Poor Plan - Discharge Summary Discharge Rx Participant: No New Discharge Prescriptions: No Action risperiDONE [RisperDAL] 1 mg PEG/G-TUBE BID@0800,1999 Aspirin 81 mg PEG/G-TUBE DAILY@0800 Atorvastatin [Lipitor] 5 mg PEG/G-TUBE MOWEFR@0800 Latanoprost [Xalatan 0.005%] 1 drop BOTH EYES HS@1999 Valproic Acid Oral Soln [Depakene Syrup] 500 mg PEG/G-TUBE BID@0800,1999 Levothyroxine Sodium [Synthroid] 175 mcg PEG/G-TUBE DAILY@0600 Montelukast Chew [Singulair chew] 5 mg PEG/G-TUBE DAILY@0800 Lactulose [Constulose] 10 gm PEG/G-TUBE DAILY@0800 Apixaban [Eliquis] 2.5 mg PEG/G-TUBE BID@799,1999 predniSONE 5 mg PEG/G-TUBE DAILY@08 Omeprazole [PriLOSEC] 40 mg PEG/G-TUBE DAILY@08 Albuterol Nebulized [Ventolin Nebulized] 2.5 mg INHALATION RT-QID PRN PRN Reason: Shortness Of Breath Acetaminophen Tab [Tylenol Tab] 500 mg PO Q6H PRN PRN Reason: Pain Or Fever > 100.5 Furosemide [Lasix] 40 mg PEG/G-TUBE DAILY@08 levETIRAcetam [Keppra] 500 mg PEG/G-TUBE BID@799,1999 diphenhydrAMINE [Benadryl] 25 mg PO TID PRN PRN Reason: Allergy Symptoms Discharge Medication List Aspirin 81 mg PEG/G-TUBE DAILY@79909/09/14 [History] risperiDONE [RisperDAL] 1 mg PEG/G-TUBE BID@799,199909/09/14 [History] Atorvastatin [Lipitor] 5 mg PEG/G-TUBE MOWEFR@79906/16/18 [History] Latanoprost [Xalatan 0.005%] 1 drop BOTH EYES HS@199910/08/18 [History] Valproic Acid Oral Soln [Depakene Syrup] 500 mg PEG/G-TUBE BID@799,199910/08/18 [History] Levothyroxine Sodium [Synthroid] 175 mcg PEG/G-TUBE DAILY@0610/23/19 [History] Lactulose [Constulose] 10 gm PEG/G-TUBE DAILY@79906/09/20 [History] Montelukast Chew [Singulair chew] 5 mg PEG/G-TUBE DAILY@79906/09/20 [History] Apixaban [Eliquis] 2.5 mg PEG/G-TUBE BID@799,199901/18/21 [History] Omeprazole [PriLOSEC] 40 mg PEG/G-TUBE DAILY@79901/18/21 [History] predniSONE 5 mg PEG/G-TUBE DAILY@79901/18/21 [History] Acetaminophen Tab [Tylenol Tab] 500 mg PO Q6H PRN 02/28/21 [History] Albuterol Nebulized [Ventolin Nebulized] 2.5 mg INHALATION RT-QID PRN 02/28/21 [History] Furosemide [Lasix] 40 mg PEG/G-TUBE DAILY@0800 02/28/21 [History] diphenhydrAMINE [Benadryl] 25 mg PO TID PRN 02/28/21 [History] levETIRAcetam [Keppra] 500 mg PEG/G-TUBE BID@0800,199902/28/21 [History] Follow up Appointment(s)/Referral(s): Guillermina Ruff MD [Primary Care Provider] - 1-2 days [facility] [NON-STAFF] - [facility] [NON-STAFF] - [facility], [REFERRING] -
--- NOTE | 2021-03-10 12:33 | CDI ---
Documentation Clarification Form Date: 03/10/2021 12:06:42 PM From: Kim RetanaHopeDEZ jarvis, CCDS Admit Date: 02/28/2021 04:55:00 AM Patient Name: Zoraida Holloway Visit Number: [id number] Discharge Date: 03/05/2021 02:30:00 PM ATTENTION: The Clinical Documentation Specialists (CDI) and [facility] Coding Staff appreciate your assistance in clarifying documentation. Please respond to the clarification below the line at the bottom and electronically sign. The CDI & [facility] Coding staff will review the response and follow-up if needed. Please note: Queries are made part of the Legal Health Record. If you have any questions, please contact the author of this message via ITS. Dr. Memo Uriarte: Sepsis is documented in the 02/28 ED Note in the ED Clinical Impression and in the 02/28 History & Physical Assessment: Acute Bilateral Aspiration Pneumonia with Sepsis, present on admission, Elevated Lactic Acid possibly secondary to Sepsis. Per the 03/01, 03/02, 03/03, 03/04, 03/05 Attending Physician Progress Notes and the 03/05 Discharge Summary: Lactic acidosis secondary to intravascular depletion no clear evidence of Sepsis at this time. Per the 03/01 General Surgery Progress Note: Sepsis on presentation. Per the 03/01 Pulmonary/Critical Care consult: Acute leukocytosis, currently under investigation, consider underlying Sepsis. Additional clarification regarding the documented Sepsis diagnosis is requested. History/Risk Factors per the 02/28 History & Physical: Atrial Fibrillation, Asthma, CHF, Dementia, GERD, Hypertension, Hyperlipidemia, Mitral Valve Prolapse, MRSA Buttock, Depression, Schizophrenia, Seizure Disorder, Hypothyroidism, Former smoker, Developmental Delay and Parkinson's disease, resides in an [facility]. Clinical Indicators: Presented to the ED on 02/28 via EMS from an [facility] with GI Bleed, Abdominal distention, multiple episodes of vomiting. The patient has a PEG tube on Aspirin, Lasix & Eliquis at home. ED Clinical Impression: Aspiration Pneumonia, Constipation, Acute Kidney Injury, Sepsis, Lactic Acidosis, Elevated Troponin. 02/28 VS: T 97.9,, P 106, R 24, BP 81/60, PO 96 - 88 2Lnc - 94 5Lnc, BMI: 34.3 03/06 VS: T 97.5, P 109, R 33, BP 100/53, PO 92 BiPAP (Patient was intubated on 03/05, no vent) 02/28 LAB: WBC 36.3, Hgb 10.4, Hct 32.2, Pl Ct 140, Neut 34.10, Na 130, Cl 83, BUN 58, Cr 1.49, Glucose 54, Lactic Acid 4.2, 1.8; AST 56, Troponin 0.043, Total Protein 6.2, Albumin 3.2 Gastric Occult Blood: Positive COVID 19: Negative 03/01 LAB: WBC 32.7, Hgb 8.9, Hct 26.4, Pl Ct 115, Neut 30.40, Amylase 1041, Lipase 1532 02/28 CT Abdomen/Pelvis: Bilateral basilar pulmonary infiltrates & atelectasis, Cholelithiasis, Mildly dilated gallbladder, new. Constipation. 02/28 CXR: NGT. Small - moderate bilateral pleural effusions possibly mild interstitial edema. Findings consistent with CHF. 03/01 CXR: Small bilateral pleural effusions with bibasilar infiltrates. Correlate for atelectasis or pneumonia. Treatment 02/28: NGT, Consults: General Surgery and Pulmonary/Critical Care, No code status. IV fl bolus 1,000 mls @ 999 mls/hr q1H x2, IV fluid rate 1,000 mls @ 130 mls/hr q7H, IV Ampicillin, IV Zofran q6H, IV Flagyl q8H, IV Zosyn q8H, IV Dilaudid q6H/prn, IV Protonix, INH Duoneb, IV Meropenem q8H, IV Zosyn/Tazobactam x1 03/05 Patient developed acute bradycardia and cardiac asystole, Intubated, there was copious amount of secreations in vocal cords consistent with underlying ongoing aspiration. Again went into PEA, CPR performed, patient subsequently . In your professional opinion, please clarify if these findings signify one of the following conditions: [x ] Sepsis POA, please specify cause if known: [ ] With Severe Sepsis [ x ] With Severe Sepsis and Septic Shock [ ] Sepsis, Not POA, Resolved, please specify cause if known: [ ] With Severe Sepsis [ ] With Severe Sepsis and Septic Shock [ ] Sepsis ruled out [ ] Other, please specify [ ] Unable to determine (Template Last Reviewed: July 2020) LARRYD
--- NOTE | 2021-03-10 12:44 | CDI ---
Documentation Clarification Form Date: 03/10/2021 12:33:57 PM From: Kim RetanaHopeDEZ jarvis, CCDS Admit Date: 02/28/2021 04:55:00 AM Patient Name: Zoraida Holloway Visit Number: [id number] Discharge Date: 03/05/2021 02:30:00 PM ATTENTION: The Clinical Documentation Specialists (CDI) and [facility] Coding Staff appreciate your assistance in clarifying documentation. Please respond to the clarification below the line at the bottom and electronically sign. The CDI & [facility] Coding staff will review the response and follow-up if needed. Please note: Queries are made part of the Legal Health Record. If you have any questions, please contact the author of this message via ITS. Dr. Memo Uriarte: CHF is documented in the 02/28 History & Physical in the patient's Medical History and found on the 02/28 CXR. Heart Failure is documented in the patient's Past Medical History in the 02/28 ED Note, the 02/28 General Surgeon's Consult, the 02/28 H/P and in subsequent Progress Notes by the General Surgeon. Per the Attending Physician Progress Notes on 03/01, 03/02, 03/03, 03/04 and 03/05: the patient has no evidence of congestive heart failure at this time. Additional clarification of the Type & Acuity of the patient's CHF is requested. History/Risk Factors per the 02/28 History & Physical: Atrial Fibrillation, Asthma, CHF, Dementia, GERD, Hypertension, Hyperlipidemia, Mitral Valve Prolapse, MRSA Buttock, Depression, Schizophrenia, Seizure Disorder, Hypothyroidism, Former smoker, Developmental Delay and Parkinson's disease, resides in an [facility]. Clinical Indicators: Presented to the ED on 02/28 via EMS from an [facility] with GI Bleed, Abdominal distention, multiple episodes of vomiting. The patient has a PEG tube on Aspirin, Lasix & Eliquis at home. ED Clinical Impression: Aspiration Pneumonia, Constipation, Acute Kidney Injury, Sepsis, Lactic Acidosis, Elevated Troponin. 02/28 VS: T 97.9,, P 106, R 24, BP 81/60, PO 96 - 88 2Lnc - 94 5Lnc, BMI: 34.3 03/06 VS: T 97.5, P 109, R 33, BP 100/53, PO 92 BiPAP (Patient was intubated on 03/05, no vent) 02/28 LAB: WBC 36.3, Hgb 10.4, Hct 32.2, Pl Ct 140, Neut 34.10, Na 130, Cl 83, BUN 58, Cr 1.49, Glucose 54, Lactic Acid 4.2, 1.8; AST 56, Troponin 0.043, Total Protein 6.2, Albumin 3.2 BNP was not done. COVID 19: Negative 02/28 CT Abdomen/Pelvis: Bilateral basilar pulmonary infiltrates & atelectasis, Cholelithiasis, Mildly dilated gallbladder, new. Constipation. 02/28 CXR: NGT. Small - moderate bilateral pleural effusions possibly mild interstitial edema. Findings consistent with CHF. 03/01 CXR: Small bilateral pleural effusions with bibasilar infiltrates. Correlate for atelectasis or pneumonia. Most Recent ECHO 06/18/2018: EF 50-55%, Mild TR, Severe MR, Mild-Moderate Pulmonary Hypertension, Large Pleural Effusion. Treatment 02/28: NGT, Consults: General Surgery and Pulmonary/Critical Care, No code status. IV fl bolus 1,000 mls @ 999 mls/hr q1H x2, IV fluid rate 1,000 mls @ 130 mls/hr q7H, IV Ampicillin, IV Zofran q6H, IV Flagyl q8H, IV Zosyn q8H, IV Dilaudid q6H/prn, IV Protonix, INH Duoneb, IV Meropenem q8H, IV Zosyn/Tazobactam x1. 03/01 po Home Dose of Lasix 40 mg via PEG tube 03/04 IV Lasix 20 mg q12H 03/05 Patient developed acute bradycardia and cardiac asystole, Intubated, there was copious amount of secreations in vocal cords consistent with underlying ongoing aspiration. Again went into PEA, CPR performed, patient subsequently . In your professional opinion, can you please clarify the [acuity and type] of CHF if known? [ ] Acute Diastolic Heart Failure [ ] Chronic Diastolic Heart Failure [ ] Acute on Chronic Diastolic Heart Failure [ ] Heart Failure is ruled out [ ] Other, please specify [x ] Unable to determine (Template Last Revised: July 2020) MTDD
--- NOTE | 2021-03-10 12:52 | CDI ---
Documentation Clarification Form Date: 03/10/2021 12:45:00 PM From: Kim Hope CCS, CCDS Admit Date: 02/28/2021 04:55:00 AM Patient Name: Zoraida Holloway Visit Number: [id number] Discharge Date: 03/05/2021 02:30:00 PM ATTENTION: The Clinical Documentation Specialists (CDI) and [facility] Coding Staff appreciate your assistance in clarifying documentation. Please respond to the clarification below the line at the bottom and electronically sign. The CDI & [facility] Coding staff will review the response and follow-up if needed. Please note: Queries are made part of the Legal Health Record. If you have any questions, please contact the author of this message via ITS. Dr. Memo Uriarte: Chronic anemia is documented in the patient's Past Medical History in the 02/28 ED Note, the 02/28 General Surgeon's Consult and the 03/01 Pulmonary/Critical Care Consult without further specificity. Per the 02/28 History & Physical, Anemia is documented as Anemia, normocytic. Additional specificity regarding the Type & Acuity of Anemia is requested. History/Risk Factors per the 02/28 History & Physical: Atrial Fibrillation, Asthma, CHF, Dementia, GERD, Hypertension, Hyperlipidemia, Mitral Valve Prolapse, MRSA Buttock, Depression, Schizophrenia, Seizure Disorder, Hypothyroidism, Former smoker, Developmental Delay and Parkinson's disease, resides in an [place]. Clinical Indicators: Presented to the ED on 02/28 via EMS from an [place] with GI Bleed, Abdominal distention, multiple episodes of vomiting. The patient has a PEG tube on Aspirin, Lasix & Eliquis at home. ED Clinical Impression: Aspiration Pneumonia, Constipation, Acute Kidney Injury, Sepsis, Lactic Acidosis, Elevated Troponin. 02/28 VS: T 97.9,, P 106, R 24, BP 81/60, PO 96 - 88 2Lnc - 94 5Lnc, BMI: 34.3 03/06 VS: T 97.5, P 109, R 33, BP 100/53, PO 92 BiPAP (Patient was intubated on 03/05, no vent) Hemoglobin: 02/28: 10.4 - 8.9 - 9.6; 03/01: 9.0; 03/02: 7.9; 03/03: 7/3; 03/04: 7.0; .1: 7.4 Hematocrit: 02/28: 32.2 - 26.4 - 30.2; 03/01: 28.1; 03/02: 24.0; 03/03: 23.0; 03/04: 23.2; 03/05: 23.5 02/28: Gastric Occult Blood: Positive Treatment 02/28: NGT, Consults: General Surgery and Pulmonary/Critical Care, No code status. IV fl bolus 1,000 mls @ 999 mls/hr q1H x2, IV fluid rate 1,000 mls @ 130 mls/hr q7H, IV Ampicillin, IV Zofran q6H, IV Flagyl q8H, IV Zosyn q8H, IV Dilaudid q6H/prn, IV Protonix, INH Duoneb, IV Meropenem q8H, IV Zosyn/Tazobactam x1 03/05 Patient developed acute bradycardia and cardiac asystole, Intubated, there was copious amount of secreations in vocal cords consistent with underlying ongoing aspiration. Again went into PEA, CPR performed, patient subsequently . Please clarify the type and acuity of anemia: [ ] Acute blood loss anemia [ ] Acute on chronic blood loss anemia [ ] Chronic blood loss anemia [ ] Iron deficiency anemia [ ] Hemolytic anemia [ ] Nutritional anemia [ x ] Unable to determine [ ] Other, please specify (Template Last Revised: July 2020) no CHF MTDD
== END 2021-03-05 14:30 | disposition expired | DRG 871 ==
LOC: EC 23:49 → 3SCARD 02-28 04:55 → 2SICU 03-01 14:17
PROVIDERS: ADMIT Hospitalist; ATTEND Hospitalist
PROC: 3E0G76Z Introduction of Nutritional Substance into Upper GI, Via Natural or Artificial Opening (ICD-10-PCS; 2021-02-28)
PROC: 0D9670Z Drainage of Stomach with Drainage Device, Via Natural or Artificial Opening (ICD-10-PCS; 2021-02-28)
PROC: 3E033XZ Introduction of Vasopressor into Peripheral Vein, Percutaneous Approach (ICD-10-PCS; 2021-03-05)
PROC: 5A12012 Performance of Cardiac Output, Single, Manual (ICD-10-PCS; principal; 2021-03-05 10:10)
PROC: 0BH18EZ Insertion of Endotracheal Airway into Trachea, Via Natural or Artificial Opening Endoscopic (ICD-10-PCS; principal; 2021-03-05 10:10)
PROC: 5A09357 Assistance with Respiratory Ventilation, Less than 24 Consecutive Hours, Continuous Positive Airway Pressure (ICD-10-PCS; 2021-03-05 10:10)
DX: A41.9 Sepsis, unspecified organism (principal); K27.4 Chronic or unspecified peptic ulcer, site unspecified, with hemorrhage; K85.10 Biliary acute pancreatitis without necrosis or infection; L89.324 Pressure ulcer of left buttock, stage 4; G93.41 Metabolic encephalopathy; J69.0 Pneumonitis due to inhalation of food and vomit; J96.01 Acute respiratory failure with hypoxia; N17.0 Acute kidney failure with tubular necrosis; R65.21 Severe sepsis with septic shock; E87.0 Hyperosmolality and hypernatremia; E87.1 Hypo-osmolality and hyponatremia; E87.2 Acidosis; J98.11 Atelectasis; D69.6 Thrombocytopenia, unspecified; E03.9 Hypothyroidism, unspecified; I27.20 Pulmonary hypertension, unspecified; Z20.822 Contact with and (suspected) exposure to COVID-19; F25.9 Schizoaffective disorder, unspecified; G20 Parkinson's disease; I95.9 Hypotension, unspecified; K22.2 Esophageal obstruction; J45.909 Unspecified asthma, uncomplicated; I46.9 Cardiac arrest, cause unspecified; F32.9 Major depressive disorder, single episode, unspecified; F02.80 Dementia in other diseases classified elsewhere, unspecified severity, without behavioral disturbance, psychotic disturbance, mood disturbance, and anxiety; G40.909 Epilepsy, unspecified, not intractable, without status epilepticus; I08.0 Rheumatic disorders of both mitral and aortic valves; D64.9 Anemia, unspecified; I10 Essential (primary) hypertension; G47.33 Obstructive sleep apnea (adult) (pediatric); I48.0 Paroxysmal atrial fibrillation; K21.9 Gastro-esophageal reflux disease without esophagitis; E87.6 Hypokalemia; K59.00 Constipation, unspecified; E78.5 Hyperlipidemia, unspecified; E16.2 Hypoglycemia, unspecified; E86.0 Dehydration; R77.8 Other specified abnormalities of plasma proteins; F79 Unspecified intellectual disabilities; K80.20 Calculus of gallbladder without cholecystitis without obstruction; R13.10 Dysphagia, unspecified; M19.90 Unspecified osteoarthritis, unspecified site; Z71.3 Dietary counseling and surveillance; Z74.01 Bed confinement status; Z79.01 Long term (current) use of anticoagulants; Z79.82 Long term (current) use of aspirin; Z79.899 Other long term (current) drug therapy; Z82.0 Family history of epilepsy and other diseases of the nervous system; Z86.14 Personal history of Methicillin resistant Staphylococcus aureus infection; Z87.01 Personal history of pneumonia (recurrent); Z87.440 Personal history of urinary (tract) infections; Z87.891 Personal history of nicotine dependence; Z93.1 Gastrostomy status; Z99.3 Dependence on wheelchair; Z96.641 Presence of right artificial hip joint; Z79.890 Hormone replacement therapy; Z53.9 Procedure and treatment not carried out, unspecified reason; Z88.1 Allergy status to other antibiotic agents; Z88.2 Allergy status to sulfonamides; Z98.890 Other specified postprocedural states; Z79.52 Long term (current) use of systemic steroids; Z80.9 Family history of malignant neoplasm, unspecified
CPT/HCPCS: 36410; 36415; 36600; 71045; 74176; 76705; 76937; 80048; 80053; 81001; 82150; 82271; 82805; 83605; 83690; 83735; 84132; 84484; 85025; 85027; 85730; 86850; 86900; 86901; 87040; 87086; 87635; 92950; 94640; 94660; 96361; 96365; 99285